=== PATIENT | male | born 1960 | race Caucasian/White ===

== ENCOUNTER 2018-04-11 12:48 | Observation (INO) | payer OTHER, SELFPAY ==
[2018-04-11] VITALS (9 sets, daily range): BP systolic 129–148; BP diastolic 82–115; PULSE 73–112; RESP 16–19; TEMP 36.7–37.1; O2SAT 95–97; BMI 30.7; BMI 31.5
--- NOTE | 2018-04-11 13:04 | EKG12_ITS ---
Test Reason : PALPS Blood Pressure : / mmHG Vent. Rate : 130 BPM Atrial Rate : 133 BPM P-R Int : 000 ms QRS Dur : 098 ms QT Int : 268 ms P-R-T Axes : 000 -30 055 degrees QTc Int : 394 ms Atrial fibrillation with rapid ventricular response Left axis deviation Nonspecific ST abnormality Abnormal ECG Confirmed by KIA MCGEE, BRENNEN ([id number]), cd manufacturing supervisor BRAULIO GONZALES ([id number]) on 04/14/2018 11:09:11 AM Referred By: STEVE Confirmed By:BRENNEN ADAM MD
--- NOTE | 2018-04-11 13:25 | RAD_ITS ---
STUDY: X-RAY CHEST REASON FOR EXAM: Male, 57 years old. Dyspnea. TECHNIQUE: PA and lateral views of the chest. # of Images: 2 COMPARISON: 07/05/2014. FINDINGS: The lungs are clear and expanded. There is no demonstrated pleural abnormality. Normal size heart. Normal mediastinum and isidro. Normal visualized pulmonary arteries. Normal visualized aortic arch and descending thoracic aorta. There are mild degenerative changes of the visualized thoracic spine. Normal visualized ribs, clavicles, and shoulders. There is no demonstrated abnormality of the visualized soft tissue structures of the upper abdomen. RAD/Chest PA and Lateral IMPRESSION: No active pulmonary disease. Electronically Signed: Albaro Johnson MD at 14:01 EDT Tel , Service support ,
[2018-04-11] MEDS: APIXABAN 5 MG TABLET PO (13:26)
[2018-04-11] MEDS: Propranolol 1 MG/ML Ampul IV (13:26)
--- NOTE | 2018-04-11 13:29 | ED.DCSUM_ITS ---
- ER Visit Summary Date of Service: 04/11/18 Chief Complaint: Sent from urgent care for rapid heart rate. History of Present Illness: The patient is a 57 M who has a past medical history of hypertension hypercholesterolemia presents with shortness of breath. According to he has not felt well since Friday according to patient he has home health since yesterday. She believes he was short of breath yesterday he states shortness of breath started today. He denies chest heaviness, pressure or tightness or any type of chest discomfort. He acknowledges intermittent palpitations for some time. He was not evaluated for this. I was informed by Dr. Quezada's who sent patient to ER from urgent care that he had a Holter monitor in 2011. He is on no anticoagulant. He was unaware that his heart was fast and irregular. He does have history of bright red blood per rectum consistent with hemorrhoids based on history. He denies fever, chills or night sweats. He denies ocular, visual or auditory symptoms. He denies trouble with speech or swallowing. Only GI symptom is intermittent hematochezia. Review of systems otherwise negative please read written note Physical Examination: Vital signs noted and blood pressure is elevated 148/115. Pulse is recorded at 77 Holter monitor reveals A. fib with a rate between 135 and 150. Head is atraumatic normocephalic. Pupils are equal round reactive. Extraocular muscles are intact. TMs are pearly white with landmarks noted. Nares patent with no drainage. Posterior pharynx without erythema or exudate. Uvula is midline. There is no dysphonia or dysphasia. Trachea is midline. There is no stridor with auscultation of the neck. Heart is rapid and irregular. Lungs are clear to auscultation. Abdomen is soft nontender. There is no asymmetry, swelling, discoloration, leg vein distention, palpable cords or tenderness along the distribution of the deep venous system. And there is no pitting edema. Neuro exam is nonfocal. Test Results: EKG interpreted by me as atrial fibrillation with a ventricular rate of 130. QRS duration is slightly prolonged at 98 ms and there is no ossific ST-T wave changes noted. Dunnegan is to the left. Troponin less than 0.015. CBC is unremarkable. Basic metabolic panel unremarkable. TSH is normal 1.63. Emergency Department Course and Treatment: To evaluate patient's new onset A. fib and EKG, chest x-ray, appropriate blood work including TSH was obtained. Since he is on Inderal he received 1 mg of Inderal and since he reports intermittent fluttering sensation a dose of Eliquis was administered. Patient was informed that the bleeding is not a contraindication since it is in all likelihood hemorrhoidal. Treatment Plan: Patient was informed he will require admission for further cardiac workup. Since the onset of his atrial fibrillation is unknown he is not a candidate for emergent cardioversion in the emergency department. Disposition: Case was discussed with Dr. Gonzalez. He agrees with treatment plan and admission. He will see patient. Furthermore, he was made aware patient's had no cardiac workup i.e. stress test or cardiac catheterization. Impression: New onset atrial fibrillation with RVR History of hypertension History hypercholesterolemia This note was generated with [employer] dictation software. It may contain incorrect words, spelling, and punctuation that were not noted in review of the chart prior to signing ED Disposition - Plan for ED Patient: Chief Complaint: Palpitations Referrals: Alan Li MD [Primary Care Provider] -
[2018-04-11 13:30] LABS: Hemoglobin 15.8 g/dl (13.0-16.5); Mean Corp Hgb Conc 33.6 g/gl (32-36); Mean Corpuscular Hgb 28.5 pg (27.0-32.0); Mean Corpuscular Volume 84.8 fL (80-94); Mean Platelet Vol. 9.6 fl (6.2-12.0); Platelet Count 362 K/mm3 (150-450); RBC Distribution Width CV 13.8 % (11.6-14.6); RBC Distribution Width SD 42.7 fl (35.1-43.9); Red Blood Count 5.54 M/mm3 (4.6-6.2); Scan Indicated on CBC? Y/N NO; White Blood Count 8.8 K/mm3 (4.4-11.0)
[2018-04-11 13:52] LABS: Anion Gap 8 (5-15); BUN 14 mg/dL (7-18); BUN/Creat Ratio 15.5 RATIO (10-20); Calcium,Total 9.5 mg/dL (8.5-10.1); Chloride 103 mmol/L (98-107); EST Glomerular Filtration Rate 92 mL/min (>60); Est Glom Filt Rate - Afr Amer 112 mL/min (>60); Estimated Creatinine Clearance 97.61 ml/min; Glucose 112 mg/dL (74-106); Sodium Level 138 mmol/L (136-145); Thyroid Stim Hormone (TSH) 1.63 uIU/mL (0.358-3.74)
--- NOTE | 2018-04-11 16:21 | EKG12_ITS ---
Test Reason : RHYTHM CHANGE Blood Pressure : / mmHG Vent. Rate : 086 BPM Atrial Rate : 086 BPM P-R Int : 168 ms QRS Dur : 102 ms QT Int : 358 ms P-R-T Axes : 035 -21 013 degrees QTc Int : 428 ms Normal sinus rhythm Incomplete right bundle branch block Nonspecific T wave abnormality Poor R wave progression Abnormal ECG Confirmed by KIA MCGEE, BRENNEN ([id number]), loan expeditor SCARLET ARRINGTON ([id number]) on 04/15/2018 1:50:33 PM Referred By: Confirmed By:BRENNEN ADAM MD
--- NOTE | 2018-04-11 16:46 | CON.PCM_ITS ---
Problem List (1) Atrial fibrillation Status: Acute Qualifiers: Atrial fibrillation type: paroxysmal Qualified Code(s): I48.0 - Paroxysmal atrial fibrillation (2) HTN (hypertension) Status: Chronic (3) HLD (hyperlipidemia) Status: Chronic Reason for Consult Date of Consultation: 04/11/18 History of Present Illness: The patient is a 57 year old for cardiovascular consultation based on concerns of atrial fibrillation. He states to the best of his knowledge, other than having hypertension and hyperlipidemia and a history of palpitations he has had no other medical conditions. He noted yesterday and today he felt somewhat more short of breath and dyspneic. He denied any ongoing chest discomfort. He does not recall any near-syncope or syncope. He has also denied any orthopnea, PND, peripheral pitting edema. He presented to the emergency department for further evaluation. He was found to be in atrial fibrillation with rapid ventricular response. Chest pain his initial cardiac enzyme was negative. His ECG demonstrated additional findings of left axis deviation, poor R wave progression, nonspecific ST segment abnormality. He was treated with rate control therapy and a dose of an oral anticoagulant. He was placed in the PCU for further evaluation and care. While in the PCU he was noted to have spontaneous conversion to sinus rhythm. In sinus rhythm his ECG demonstrated sinus rhythm with a leftward axis and stage renal disease with an incomplete right bundle branch block pattern and a nonspecific T wave abnormality. He states he underwent evaluation the past with a transthoracic echocardiogram and an exercise tolerance test through the [facility] system. To the best of his knowledge the studies, which are remote, were unremarkable. He states he was placed on beta-kinza therapy with Inderal for intermittent palpitations. [] Past Medical History Allergies/Adverse Reactions: Allergies acetaminophen [From Vicodin] Adverse Reaction (Verified 04/11/18 12:48) Other I DON'T LIKE HOW IT MAKES ME FEEL hydrocodone [From Vicodin] Adverse Reaction (Verified 04/11/18 12:48) Other I DON'T LIKE HOW IT MAKES ME FEEL Home Medications: Ambulatory Orders Medication Instructions Recorded Diltiazem HCl [Dilacor Xr] 240 mg PO DAILY 07/28/13 Lorazepam [Ativan] 1 mg PO QHS PRN PRN 07/28/13 Propranolol HCl [Inderal] 60 mg PO DAILY 07/28/13 Atorvastatin Calcium [Lipitor] 20 mg PO QHS 07/05/14 Benazepril/Hydrochlorothiazide 1 each PO DAILY 07/05/14 [Lotensin Hct 10-12.5 mg Tablet] Loratadine 10 mg PO DAILY 04/11/18 Naproxen [Naprosyn] 500 mg PO BID PRN PRN 04/11/18 Past Medical History (Chronic Problems): Chronic Problems HTN (hypertension) (Chronic) HLD (hyperlipidemia) (Chronic) Lives: Spouse/ Significant Other Smoking Status: Never smoker Alcohol: None Drugs: None Review of Systems - Review of Systems General: Denies: Fever, Night Sweats, Fatigue Cardiovascular: Reports: Shortness of Breath, Shortness of Breath at Rest, Shortness of Breath with Exertion. Denies: Chest Discomfort, Orthopnea, PND, Peripheral Edema, Palpitations, Lightheadedness, Dizziness, Near Syncope, Syncope Respiratory: Reports: Shortness of Breath. Denies: Cough, Sputum Production, Hemoptysis Gastrointestinal: Denies: Hematemesis, Hematochezia, Melena Genitourinary: Denies: Dysuria, Hematuria Skin: Denies: Rash Subjectve: This is a 57-year-old white male appears to be resting comfortably at the moment in no acute distress. Objective: Vital Signs Temp Pulse Resp BP Pulse Ox 98.8 F 112 H 18 129/82 H 97 04/11/18 15:08 04/11/18 15:09 04/11/18 15:08 04/11/18 15:08 04/11/18 15:08 Oxygen Delivery Method Room Air Weight: 225 lb 4.999 oz Body Mass Index (BMI) 31.5 General: Awake, Alert, Oriented x 3, Cooperative, No Acute Distress HEENT: Atraumatic, Normocephalic, PERRL, EOMI, Sclera Non Icteric Oral: Moist Mucosa Neck: Supple, Good ROM, No JVD Lungs: Clear to auscultation Cardiovascular: Regular Rhythm, Normal S1, Normal S2 Vascular: No Carotid Bruits Abdomen: Bowel Sounds Present, Soft, Non Tender Extremities: No Cyanosis, No Clubbing, No edema Psych/Mental Status: Appropriate, Normal Affect 04/11/18 13:20: WBC 8.8, RBC 5.54, Hgb 15.8, Hct 47.0, MCV 84.8, MCH 28.5, MCHC 33.6, RDW 13.8, RDW Differential 42.7, Plt Count 362, MPV 9.6 04/11/18 13:20: Sodium 138, Potassium 4.0, Chloride 103, Carbon Dioxide 27.0, Anion Gap 8, BUN 14, Creatinine 0.90, Est GFR (MDRD) Af Amer 112, Est GFR (MDRD) Non-Af 92, BUN/Creatinine Ratio 15.5, Glucose 112 H, Calcium 9.5, Troponin I < 0.015 Rhythm: As noted above EKG: As noted above ECHO: Unavailable for review Stress Test: Unavailable for review CXR: Preliminary evaluation: No acute cardiopulmonary disease process appreciated: Please see official report Assessment/Plan 1. Paroxysmal afibrillation At the present time the patient is back in sinus rhythm. He will continue to be monitored. His cardiac enzymes are being followed. His ECG will be followed. It is not unreasonable to obtain an echocardiogram to assess his atrial size as well as his ventricular wall motion systolic function. His symptoms of shortness of breath may be related to his atrial dysrhythmia. However based upon his symptoms, his findings, superimposed upon his cardiovascular risk factors, I would not be unreasonable to also obtain an exercise tolerance test/imaging study to evaluate for any obvious evidence of CAD/myocardial ischemia that warrants further evaluation care. In the meantime he will continue medical management. He can be on antiplatelet therapy, anticoagulant therapy as deemed appropriate, and rate control therapy. He has a [id number] score of 1. Thus, this patient remains in sinus rhythm and/or perhaps paroxysmal atrial fibrillation then consideration will be given as to whether or not he could be placed on full strength aspirin therapy versus being on anticoagulant therapy. However if he does demonstrate recurrent episodes of paroxysmal atrial fibrillation or returns to what appears to be persistent atrial fibrillation then consideration will need to be given to anticoagulant therapy. 2. Hypertension The patient's blood pressure will be monitored. His medications can be adjusted as needed. 3. Hyperlipidemia The patient will continue lipid-lowering therapy. Comment: The above was discussed and reviewed with patient, spouse, and Dr. Flores. This note was generated with [employer] software. It may contain incorrect words, spelling, and punctuation that were not noted in checking the note before signing.
--- NOTE | 2018-04-11 16:57 | PCM.HP.STD ---
Problem List (1) New-onset atrial fibrillation with RVR Status: Acute History of Present Illness Date of Admission: 04/11/18 Chief Complaint: New-onset atrial fibrillation with RVR The patient is a 57 year old M seen in the emergency room it was the hospital with a chief complaint of increased heart rate and new onset atrial fibrillation. Patient was seen at a walk-in clinic today because since yesterday he has been having some vague chest discomfort which he describes as a tightness and also an overall weakness at the same time. Patient was seen at the walk-in clinic today and it was noted that he was in atrial fibrillation and he was instructed to go to the emergency room at [facility] for evaluation. Patient has a history of cardiac palpitations and was seen 5-[address] Alvarado, at that time he underwent an echocardiogram and a stress test which she says was unremarkable and placed on Inderal LA. Patient denies any neck or jaw discomfort, he denies any discomfort in his arms or in his mid back area today. Patient also denies any shortness of breath. EKG obtained in the emergency room showed the patient be in atrial fibrillation with a heart rate approximately 130, he was given IV Inderal by the emergency room physician and was given a dose of Eliquis. Patient had a chest x-ray performed which was unremarkable, patient's labs were also unremarkable. Patient has a history of hypertension and hyperlipidemia and takes medications. Cardiology was contacted and the patient was admitted to PCU, he will be seen by cardiology in consultation, he will have an echocardiogram performed, serial enzymes will be performed, lipid profile was ordered, his Inderal LA was changed to metoprolol tartrate 50 mg twice daily. Past Medical History Past Medical History (Chronic Problems): Chronic Problems HTN (hypertension) (Chronic) HLD (hyperlipidemia) (Chronic) Allergies acetaminophen [From Vicodin] Adverse Reaction (Verified 04/11/18 12:48) Other I DON'T LIKE HOW IT MAKES ME FEEL hydrocodone [From Vicodin] Adverse Reaction (Verified 04/11/18 12:48) Other I DON'T LIKE HOW IT MAKES ME FEEL Home Medications: Ambulatory Orders Medication Instructions Recorded Diltiazem HCl [Dilacor Xr] 240 mg PO DAILY 07/28/13 Lorazepam [Ativan] 1 mg PO QHS PRN PRN 07/28/13 Propranolol HCl [Inderal] 60 mg PO DAILY 07/28/13 Atorvastatin Calcium [Lipitor] 20 mg PO QHS 07/05/14 Benazepril/Hydrochlorothiazide 1 each PO DAILY 07/05/14 [Lotensin Hct 10-12.5 mg Tablet] Loratadine 10 mg PO DAILY 04/11/18 Naproxen [Naprosyn] 500 mg PO BID PRN PRN 04/11/18 Surgical History: no surgical history Psychiatric History: No pertinent psych hx Lives: Spouse/ Significant Other Smoking Status: Never smoker Alcohol: None Drugs: None - *Family History Maternal History Items: No pertinent history Paternal History Items: Heart Disease - at age 81 from suspected PR, Renal Disease - End-stage renal disease Review of Systems Constitutional: Reports: Weakness. Denies: Anorexia, Chills, Fever, Night Sweats, Malaise, Weight Change Eyes: Denies: Blurred vision, Cataracts, Conjunctivae Inflammation, Double vision, Drainage HEENT: Denies: Difficulty Hearing, Difficulty Swallowing, Dysphasia, Ear Pain, Eye Pain, Head Aches, Hearing Changes, Nasal bleeding, Nasal Congestion, Post Nasal Drip Cardiovascular: Reports: Chest Tightness, Palpitations. Denies: Chest Pain, Claudication, Chest Pressure, Edema, Heaviness Respiratory: Denies: Cough, Hemoptysis, Pleuritic Pain, Shortness of Breath, Shortness of breath at rest, Shortness of breath upon exertion, Sputum production, Wheezing Gastrointestinal: Denies: Abdominal Pain, Constipation, Diarrhea, Hematemesis, Hematochezia, Nausea, Melena, Vomiting Genitourinary: Denies: Dysuria, Frequency, Hematuria, Hesitancy, Incontinence, Nocturia, Retention, Urgency Musculoskeletal: Denies: Foot Pain, Hand Pain, Joint Pain, Joint stiffness, Joint swelling, Joint Tenderness, Leg Pain Skin: Denies: Dryness, Jaundice, Pruritis, Rash Neurological: Denies: Blurred vision, Double vision, Slurred speech, Difficulty swallowing, Focal weakness, Headaches, Incoordination, Numbness, Tingling Psychiatric: Denies: Anxiety, Depression, Homicidal Ideations, Suicidal Ideations Endocrine: Denies: Change in Body Habitus, Heat/ Cold Intolerance, Polydipsia, Polyuria Hematologic/ Lymphatic: Denies: Adenopathy, Anemia, Easy Bruising, Easy Bleeding, Petechiae, Purpura VTE Information - Inpt Only VTE Present on Admission: No VTE Mechan Device Prophylaxis: None VTE Pharm Prophylaxis ordered?: Yes Patient Problems: Active and Suspected Problems Atrial fibrillation (Acute) New-onset atrial fibrillation with RVR (Acute) - Physical Exam General: Alert, Oriented x3, Cooperative, No apparent distress, Well developed, Well nourished HEENT: Atraumatic, PERRLA, EOMI, Normocephalic Oral: Moist Mucosa Neck: Supple, No JVD, Negative Carotid Bruits, No Nuchal Rigidity, Trachea Midline, Thyroid Normal Size and Texture Lungs: Clear to auscultation, Normal air movement, No rhonchi, No wheeze, No rales Cardiovascular: Regular rate, Regular Rhythm, Normal S1, Normal S2, No murmurs, No Ectopic Activity, PMI Normal, No rub noted, No Gallop Abdomen: Bowel Sounds Present, Soft, Non Tender, Non-Distended, No hernias noted Extremities: No clubbing, No cyanosis, No edema, Capillary Refill Less than 3 Seconds Skin: No rashes, No breakdown Musculoskeletal: No Tenderness to Palpation of Joints or Extremities Neurological: Cranial nerves II-XII grossly intact, Neuro grossly intact, Muscle tone normal, Sensory exam intact to light touch and pain, Coordination normal Psych/Mental Status: Normal Affect, Appropriate, Alert and oriented to time, place, person, mood and affect Vital Signs Temp Pulse Resp BP Pulse Ox 98.8 F 112 H 18 129/82 H 97 04/11/18 15:08 04/11/18 15:09 04/11/18 15:08 04/11/18 15:08 04/11/18 15:08 Oxygen Delivery Method Room Air Weight: 102.2 kg Body Mass Index (BMI) 31.5 Laboratory Tests Past 24 Hrs 04/11/18 04/11/18 13:20 13:20 WBC 8.8 RBC 5.54 Hgb 15.8 Hct 47.0 MCV 84.8 MCH 28.5 MCHC 33.6 RDW 13.8 RDW Differential 42.7 Plt Count 362 MPV 9.6 Sodium 138 Potassium 4.0 Chloride 103 Carbon Dioxide 27.0 Anion Gap 8 BUN 14 Creatinine 0.90 Estim Creat Clear Calc 97.61 Est GFR (MDRD) Af Amer 112 Est GFR (MDRD) Non-Af 92 BUN/Creatinine Ratio 15.5 Glucose 112 H Calcium 9.5 Troponin I < 0.015 TSH 1.63 Assessment/Plan All Active Problems Atrial fibrillation (Acute) New-onset atrial fibrillation with RVR (Acute) #1 new onset atrial fibrillation with RVR-patient was admitted to PCU, shortly after admission to PCU was noted to the patient converted to normal sinus rhythm. Cardiac enzymes will be cycled, patient will have an echocardiogram performed and undergo nuclear stress testing if enzymes do not become abnormal. Patient's Inderal LA was stopped and he was placed on metoprolol tartrate 50 mg twice daily, he will remain on Cardizem CD and Lotensin HCT or its equivalent. Additional medication adjustments were made by cardiology, patient will have a lipid profile drawn in the morning. It is not planned to fully anticoagulate the patient at this time. #2 hypertension #3 hyperlipidemia Code Visit Inpatient E&M: 50722 Init Hosp L3
--- NOTE | 2018-04-11 17:04 | ECHOD_ITS ---
Reason For Study: Afib, Aflutter Procedure This was a 2D Doppler, Color Flow transthoracic echocardiogram. Exam performed in department. Left Ventricle Normal LV size. Left ventricular systolic function is hyperdynamic. The estimated ejection fraction is 75 %. Transmitral doppler flow suggestive of impaired relaxation of left ventricle. No regional wall motion abnormalities noted. Right Ventricle Normal RV size. Normal systolic function. Atria Normal left atrium. Normal right atrium. No doppler evidence for ASD. Bubble contrast study negative for right to left interatrial shunt. Mitral Valve There is no mitral annular calcification. Normal mitral valve. Trivial mitral valve insufficiency. Tricuspid Valve Normal tricuspid valve. Trivial tricuspid valve insufficiency. Aortic Valve Trisinus/trileaflet aortic valve. Normal aortic valve. Trivial aortic valve insufficiency. Pulmonic Valve The pulmonic valve is not well visualized. Trivial pulmonic valve insufficiency. Great Vessels Normal sized aortic root. Pericardium/Pleural No pericardial effusion. Medication Performed a rapid injection of agitated mix of 9 cc saline and 1cc air to assess for atrial septal defect. MMode/2D Measurements & Calculations LVIDd: 4.3 cm IVSd: 1.3 cm Ao root diam: 3.3 cm LVIDs: 2.4 cm LVPWd: 1.3 cm RVDd: 2.4 cm FS: 44.5 % LAV(MOD-bp): 35.6 ml LVAd ap4: 21.4 cm2 SV(MOD-sp4): 36.0 ml LAV(MOD-bp) Indexed: 16.2 ml/m2 EDV(MOD-sp4): 50.8 ml LAV(MOD-sp2): 44.3 ml EDV(sp4-el): 52.0 ml LAV(MOD-sp4): 28.5 ml LVAs ap4: 9.4 cm2 ESV(MOD-sp4): 14.8 ml ESV(sp4-el): 14.7 ml EF(MOD-sp4): 70.8 % EF(sp4-el): 71.8 % SV(sp4-el): 37.4 ml LA A4 area: 13.2 cm2 RA A4 area: 11.1 cm2 Doppler Measurements & Calculations MV E max mario: 63.1 cm/sec Lat Peak E' Mario: 8.3 cm/sec Med Peak E' Mario: 8.2 cm/sec MV A max mario: 88.4 cm/sec E/E' lat: 7.6 E/E' med: 7.7 MV E/A: 0.71 Ao V2 max: 171.5 cm/sec LV V1 max: 129.4 cm/sec PA V2 max: 135.3 cm/sec Ao max P.8 mmHg LV V1 max P.7 mmHg Ao V2 mean: 124.5 cm/sec Ao mean P.8 mmHg Ao V2 VTI: 25.8 cm Interpretation Summary Left ventricular systolic function is hyperdynamic. The estimated ejection fraction is 75 %. Trivial mitral valve insufficiency. Trivial tricuspid valve insufficiency. Trivial aortic valve insufficiency. Trivial pulmonic valve insufficiency. Transmitral doppler flow suggestive of impaired relaxation of left ventricle Bubble contrast study negative for right to left interatrial shunt. Ordering Physician: Paul Flores Referring Physician: Alan Li Performed By: Mercy Guerrier RDCS, RVT
[2018-04-11] MEDS: Atorvastatin Calcium 20 MG Tablet PO (21:55)
[2018-04-11] MEDS: Metoprolol Tartrate 50 MG Tablet PO (21:55)
[2018-04-11] MEDS: LORazepam 0.5 MG Tablet 1 MG PO (22:00)
[2018-04-12] VITALS (13 sets, daily range): BP systolic 126–136; BP diastolic 72–87; PULSE 64–79; RESP 16–18; TEMP 36.5–36.8; O2SAT 95–97
[2018-04-12 06:40] LABS: Cholesterol 159 mg/dL (200); High Density Lipoprotein 40 mg/dL; Triglycerides 226 mg/dL; Very Low Density Lipoprotein 45 mg/dL (5-40)
[2018-04-12] MEDS: dilTIAZem CD 240 MG Capsule PO (09:36)
[2018-04-12] MEDS: Lisinopril 10 MG Tablet PO (09:36)
[2018-04-12] MEDS: Aspirin E.C. 325 MG Tablet PO (09:36)
[2018-04-12] MEDS: Metoprolol Tartrate 50 MG Tablet PO ×2 (09:36→21:21)
[2018-04-12] MEDS: hydroCHLOROthiazide 12.5mg 12.5 MG PO (09:36)
--- NOTE | 2018-04-12 11:34 | PN.CARD_ITS ---
Subjectve: The patient denies ongoing chest discomfort or shortness of breath or palpitations. Objective: Vital Signs Temp Pulse Resp BP Pulse Ox 98.3 F 74 18 126/74 H 95 04/12/18 08:50 04/12/18 11:08 04/12/18 09:45 04/12/18 08:50 04/12/18 08:50 Oxygen Delivery Method Room Air Weight: 225 lb 4.999 oz Body Mass Index (BMI) 31.5 Intake and Output for Last 24 Hours 04/10/18 04/11/18 04/12/18 23:59 23:59 23:59 Intake Total 240 / 240 240 / 240 Balance 240 / 240 240 / 240 General: Awake, Alert, Oriented x 3, Cooperative, No Acute Distress HEENT: Atraumatic, Normocephalic, PERRL, EOMI, Sclera Non Icteric Oral: Moist Mucosa Neck: Supple, Good ROM, No JVD Lungs: Clear to auscultation Cardiovascular: Regular Rhythm, Normal S1, Normal S2 Vascular: No Carotid Bruits Abdomen: Bowel Sounds Present, Soft, Non Tender Extremities: No edema Neurological: No Focal Motor or Sensory Deficit Psych/Mental Status: Appropriate, Normal Affect 04/11/18 13:20: WBC 8.8, RBC 5.54, Hgb 15.8, Hct 47.0, MCV 84.8, MCH 28.5, MCHC 33.6, RDW 13.8, RDW Differential 42.7, Plt Count 362, MPV 9.6 04/11/18 13:20: Sodium 138, Potassium 4.0, Chloride 103, Carbon Dioxide 27.0, Anion Gap 8, BUN 14, Creatinine 0.90, Est GFR (MDRD) Af Amer 112, Est GFR (MDRD) Non-Af 92, BUN/Creatinine Ratio 15.5, Glucose 112 H, Calcium 9.5, Troponin I < 0.015 04/11/18 17:25: Troponin I < 0.015 04/11/18 19:53: Troponin I < 0.015 04/11/18 23:02: Troponin I < 0.015 04/12/18 05:36: Triglycerides 226 H, Cholesterol 159, LDL Cholesterol 74, VLDL Cholesterol 45 H, HDL Cholesterol 40 Rhythm: sinus rhythm EKG: sinus rhythm; no acute ECG changes ECHO: pending Stress Test: pending Medical Necessity - Tobacco Use Smoking Status: Never smoker Assessment/Plan 1. Paroxysmal afibrillation At the present time the patient is back in sinus rhythm. He will continue to be monitored. His cardiac enzymes are negative. His ECG will be followed. It is not unreasonable to obtain an echocardiogram to assess his atrial size as well as his ventricular wall motion systolic function. His symptoms of shortness of breath may be related to his atrial dysrhythmia. However based upon his symptoms, his findings, superimposed upon his cardiovascular risk factors, it would not be unreasonable to also obtain an exercise tolerance test/imaging study to evaluate for any obvious evidence of CAD/myocardial ischemia that warrants further evaluation care. In the meantime he will continue medical management. He can be on antiplatelet therapy, anticoagulant therapy as deemed appropriate, and rate control therapy. Depending upon his clinical course he may need further outpatient cardiac rhythm follow up with an event monitor. He has a [id number] score of 1. Thus, this patient remains in sinus rhythm and/or perhaps paroxysmal atrial fibrillation then consideration will be given as to whether or not he could be placed on full strength aspirin therapy versus being on anticoagulant therapy. However if he does demonstrate recurrent episodes of paroxysmal atrial fibrillation or returns to what appears to be persistent atrial fibrillation then consideration will need to be given to anticoagulant therapy. 2. Hypertension The patient's blood pressure will be monitored. His medications can be adjusted as needed. 3. Hyperlipidemia The patient will continue lipid-lowering therapy. Comment: The above was discussed and reviewed with patient, spouse, and Dr. Flores. This note was generated with [employer] dictation software. It may contain incorrect words, spelling, and punctuation that were not noted in checking the note before signing.
[2018-04-12] MEDS: Acetaminophen 325 MG Tablet 650 MG PO ×2 (15:36→21:37)
--- NOTE | 2018-04-12 19:00 | PCM.PROGNOTE ---
Patient Problems: Active and Suspected Problems Atrial fibrillation (Acute) New-onset atrial fibrillation with RVR (Acute) Subjective: Patient was seen and examined today, he continues to remain in sinus rhythm, he denies any chest pain or shortness of breath. - Physical Exam General: Alert, Oriented x3, Cooperative HEENT: Atraumatic, PERRLA, EOMI, Normocephalic Neck: Supple, No JVD, Trachea Midline, Thyroid Normal Size and Texture Lungs: Clear to auscultation, Normal air movement, No rhonchi, No wheeze, No rales Cardiovascular: Regular rate, Regular Rhythm, Normal S1, Normal S2, No murmurs, No Ectopic Activity, PMI Normal, No rub noted, No Gallop Abdomen: Bowel Sounds Present, Soft, Non Tender, Non-Distended Extremities: No edema, Capillary Refill Less than 3 Seconds Skin: No rashes, No breakdown Musculoskeletal: No Tenderness to Palpation of Joints or Extremities Neurological: Cranial nerves II-XII grossly intact, Neuro grossly intact, Sensory exam intact to light touch and pain, Coordination normal Psych/Mental Status: Normal Affect, Appropriate, Alert and oriented to time, place, person, mood and affect Vital Signs Temp Pulse Resp BP Pulse Ox 97.9 F 64 18 127/72 H 96 04/12/18 15:32 04/12/18 15:32 04/12/18 15:32 04/12/18 15:32 04/12/18 15:32 Oxygen Delivery Method Room Air Weight: 102.2 kg Body Mass Index (BMI) 31.5 Intake and Output for Last 24 Hours 04/10/18 04/11/18 04/12/18 23:59 23:59 23:59 Intake Total 240 / 240 1240 / 1240 Balance 240 / 240 1240 / 1240 Laboratory Tests Past 24 Hrs 04/11/18 04/11/18 04/12/18 19:53 23:02 05:36 Troponin I < 0.015 < 0.015 Triglycerides 226 H Cholesterol 159 LDL Cholesterol 74 VLDL Cholesterol 45 H HDL Cholesterol 40 Medical Necessity - Tobacco Use Smoking Status: Never smoker Assessment/Plan All Active Problems Atrial fibrillation (Acute) New-onset atrial fibrillation with RVR (Acute) #1 new onset atrial fibrillation with RVR-patient now in sinus rhythm, he converted yesterday, he will have a stress test and echocardiogram tomorrow, cardiology is participating in his care #2 hypertension #3 hyperlipidemia Code Visit Inpatient E&M: 92891 Subs Hosp L2
[2018-04-12] MEDS: Sodium Chloride 0.65% 1 SPRAY SPRAY.BTL 2 SPRAY NASAL (19:25)
[2018-04-12] MEDS: Atorvastatin Calcium 20 MG Tablet PO (21:21)
[2018-04-12] MEDS: LORazepam 0.5 MG Tablet PO (21:21)
[2018-04-12] MEDS: 0.9% NaCl Peripheral Flush Adult/Peds IV (21:21)
[2018-04-13] VITALS (7 sets, daily range): BP systolic 113–142; BP diastolic 76–84; PULSE 55–95; RESP 16; TEMP 36.3–36.4; O2SAT 96–100
[2018-04-13 05:28] LABS: Absolute Lymphocyte Count 2.65 X10^3/ul (0.83-4.51); Absolute Neutrophil Count 4.2 X10^3/uL (2.0-7.7); Basophil# 0.05 X10^3/uL; Basophil% 0.6 % (0-1); Eosinophil# 0.36 X10^3/uL; Eosinophils% 4.4 % (0-5); Hematocrit 44.1 % (40-54); Hemoglobin 14.9 g/dl (13.0-16.5); Lymphocyte # 2.65 X10^3/ul (4.0); Lymphocyte % 32.5 % (19-41); Mean Corp Hgb Conc 33.8 g/gl (32-36); Mean Corpuscular Hgb 28.7 pg (27.0-32.0); Mean Platelet Vol. 9.8 fl (6.2-12.0); Monocyte# 0.88 X10^3/uL; Monocyte% 10.8 % (0-10); Neutrophil % 51.6 % (47-70); Platelet Count 336 K/mm3 (150-450); RBC Distribution Width CV 13.9 % (11.6-14.6); RBC Distribution Width SD 42.7 fl (35.1-43.9); Red Blood Count 5.19 M/mm3 (4.6-6.2); White Blood Count 8.2 K/mm3 (4.4-11.0)
[2018-04-13 05:30] LABS: POSITIVE COUNT NO; POSITIVE DIFFERENTIAL NO; POSITIVE MORPHOLOGY NO
[2018-04-13 05:33] LABS: Prothrombin Time (Protime)PT. 13.4 SECONDS (11.7-14.9)
[2018-04-13] MEDS: Aspirin E.C. 325 MG Tablet PO (05:40)
[2018-04-13] MEDS: Lisinopril 10 MG Tablet PO (05:40)
[2018-04-13 05:51] LABS: Anion Gap 9 (5-15); BUN 18 mg/dL (7-18); BUN/Creat Ratio 20.4 RATIO (10-20); Calcium,Total 8.7 mg/dL (8.5-10.1); Chloride 102 mmol/L (98-107); Creatinine, Serum 0.88 mg/dL (0.70-1.30); EST Glomerular Filtration Rate 95 mL/min (>60); Est Glom Filt Rate - Afr Amer 115 mL/min (>60); Estimated Creatinine Clearance 96.78 ml/min; Glucose 93 mg/dL (74-106); Potassium 3.9 mmol/L (3.5-5.1); Sodium Level 138 mmol/L (136-145)
--- NOTE | 2018-04-13 05:55 | EKG12_ITS ---
Test Reason : AM EKG Blood Pressure : / mmHG Vent. Rate : 060 BPM Atrial Rate : 060 BPM P-R Int : 178 ms QRS Dur : 114 ms QT Int : 438 ms P-R-T Axes : 042 011 011 degrees QTc Int : 438 ms Normal sinus rhythm Incomplete right bundle branch block Borderline ECG Confirmed by KIA MCGEE, BRENNEN ([id number]), publication editor SCARLET ARRINGTON ([id number]) on 04/15/2018 1:46:52 PM Referred By: DARYL Confirmed By:BRENNEN ADAM MD
[2018-04-13] MEDS: dilTIAZem CD 240 MG Capsule PO (09:19)
[2018-04-13] MEDS: Metoprolol Tartrate 50 MG Tablet PO (09:19)
[2018-04-13] MEDS: hydroCHLOROthiazide 12.5mg 12.5 MG PO (09:19)
--- NOTE | 2018-04-13 09:20 | STRESSREP ---
Stress Test Report Date: 04/13/2018 Procedure: Exercise tolerance test/imaging study Indications: Shortness of breath/dyspnea; paroxysmal atrial fibrillation Consent: Per the patient Procedure: The patient exercised on a Ifeanyi protocol for 8 minutes and 30 seconds completing Stage II and 2 minutes and 30 seconds of Stage III achieving a peak heart rate of 162 bpm (98 % predicted maximal heart rate) with a peak blood pressure 220/84 mmHg and a peak MET capacity of 9 METs. The baseline ECG demonstrated normal sinus rhythm: Poor R wave progression; nonspecific T wave abnormality. The peak exercise ECG demonstrated somatic/motion artifact with no obvious ECG changes. There was a rare PVC during exercise. The functional capacity was considered good. There was no complaint of chest discomfort during exercise or recovery. The examination was discontinued secondary to dyspnea and leg discomfort. Impression: 1. Technically adequate (percent predicted maximal heart rate greater than 85%) exercise tolerance test 2. Peak exercise ECG demonstrated somatic/motion artifact with no obvious ECG changes 3. There was a rare PVC during exercise 4. Nuclear images pending Myocardial perfusion imaging study: Technique: The patient was injected with 14.5 mCi of technetium 99m Cardiolite and subsequently rest SPECT Cardiolite nuclear imaging was obtained in the horizontal long, vertical long, and short axis views. The patient exercised on a Ifeanyi protocol for 8 minutes and 30 seconds completing Stage II and 2 minutes and 30 seconds of Stage III achieving a peak heart rate of 162 bpm (98 % predicted maximal heart rate) with a peak blood pressure 220/84 mmHg and a peak MET capacity of 9 METs. The patient was injected with 44.4 mCi of technetium 99m Cardiolite and subsequently stress SPECT Cardiolite nuclear imaging was obtained in the horizontal long, vertical long, and short axis views. A gated Cardiolite study at peak stress was obtained. Interpretation: Rest and stress SPECT Cardiolite nuclear imaging status post realignment, normalization, and attenuation correction, demonstrates the appearance of relative uniform tracer uptake and myocardial perfusion appearing within normal limits. There is end systolic thickening and brightening. The gated Cardiolite study demonstrates myocardial thickening and inward wall motion. The reported LVEF is 81 %. Impression: 1. Rest and stress SPECT Cardiolite nuclear imaging demonstrate relative uniform tracer uptake and myocardial perfusion appearing within normal limits. 2. The gated Cardiolite study reports an LVEF of 81 %. This note was generated with [employer] software. It may contain incorrect words, spelling, and punctuation that were not noted in checking the note before signing.
--- NOTE | 2018-04-13 09:24 | STRESSREP_ITS ---
Stress Test Report Date: 04/13/2018 Procedure: Exercise tolerance test/imaging study Indications: Shortness of breath/dyspnea; paroxysmal atrial fibrillation Consent: Per the patient Procedure: The patient exercised on a Ifeanyi protocol for 8 minutes and 30 seconds completing Stage II and 2 minutes and 30 seconds of Stage III achieving a peak heart rate of 162 bpm (98 % predicted maximal heart rate) with a peak blood pressure 220/84 mmHg and a peak MET capacity of 9 METs. The baseline ECG demonstrated normal sinus rhythm: Poor R wave progression; no nspecific T wave abnormality. The peak exercise ECG demonstrated somatic/motion artifact with no obvious ECG changes. There was a rare PVC during exercise. The functional capacity was considered good. There was no complaint of chest discomfort during exercise or recovery. The examination was discontinued secondary to dyspnea and leg discomfort. Impression: 1. Technically adequate (percent predicted maximal heart rate greater than 85%) exercise tolerance test 2. Peak exercise ECG demonstrated somatic/motion artifact with no obvious ECG changes 3. There was a rare PVC during exercise 4. Nuclear images pending Myocardial perfusion imaging study: Technique: The patient was injected with 14.5 mCi of technetium 99m Cardiolite and subsequently rest SPECT Cardiolite nuclear imaging was obtained in the horizontal long, vertical long, and short axis views. The patient exercised on a Ifeanyi protocol for 8 minutes and 30 seconds completing Stage II and 2 minutes and 30 seconds of Stage III achieving a peak heart rate of 162 bpm (98 % predicted maximal heart rate) with a peak blood pressure 220/84 mmHg and a peak MET capacity of 9 METs. The patient was injected with 44.4 mCi of technetium 99m Cardiolite and subsequently stress SPECT Cardiolite nuclear imaging was obtained in the horizontal long, vertical long, and short axis views. A gated Cardiolite study at peak stress was obtained. Interpretation: Rest and stress SPECT Cardiolite nuclear imaging status post realignment, normalization, and attenuation correction, demonstrates the appearance of relative uniform tracer uptake and myocardial perfusion appearing within normal limits. There is end systolic thickening and brightening. The gated Cardiolite study demonstrates myocardial thickening and inward wall motion. The reported LVEF is 81 %. Impression: 1. Rest and stress SPECT Cardiolite nuclear imaging demonstrate relative uniform tracer uptake and myocardial perfusion appearing within normal limits. 2. The gated Cardiolite study reports an LVEF of 81 %. This note was generated with [employer] software. It may contain incorrect words, spelling, and punctuation that were not noted in checking the note before signing.
--- NOTE | 2018-04-13 10:40 | CASEMGMT ---
LIYAH VILLANUEVA INITIAL REVIEW ASSESSMENT D/C PLAN: Home Face to Face with patient for initial transition planning/care coordination assessment. LIYAH VILLANUEVA introduced self and role at [facility]. Care providers, pharmacy, and demographics verified. Pt resting in bed, awake/alert/oriented. present in room @ bedside. PCP: Dr Li Preferred Pharmacy: [facility] Insurance: MMO Prescription Benefit: MMO Living Will/HPOA: Does not have advanced directive. States he and his are both interested in information and would like to talk to JOANNA. Consult made with JOANNA Stone. Living Arrangements: Lives with . Transportation: Pt drives. DME: Denies using any DME and denies needs. HHC/SNF: Has never used either. Pt's plans on D/C: Wishes to return home. Denies needs and no needs identified. CM to follow for any further discharge planning needs that may arise. Marleni POLLARD RN, CM
--- NOTE | 2018-04-13 11:55 | DCINST_ITS ---
- Discharge Diagnoses Current Active Problems: Current Active and Chronic Problems Atrial fibrillation (Acute) HTN (hypertension) (Chronic) HLD (hyperlipidemia) (Chronic) New-onset atrial fibrillation with RVR (Acute) You will use the following diet at home:: No restrictions Your food should be the consistency of: Regular Your liquids should be the consistency of: Regular/Thin Discharge Activity: Return to Normal Activity Weight Bearing Status: Full weight bearing Allergies/Adverse Reactions: Allergies acetaminophen [From Vicodin] Adverse Reaction (Verified 04/11/18 12:48) Other I DON'T LIKE HOW IT MAKES ME FEEL hydrocodone [From Vicodin] Adverse Reaction (Verified 04/11/18 12:48) Other I DON'T LIKE HOW IT MAKES ME FEEL Medications to take at Discharge Diltiazem HCl [Dilacor Xr] 240 mg PO DAILY 07/28/13 Lorazepam [Ativan] 0.5 mg PO QHS PRN PRN 07/28/13 Atorvastatin Calcium [Lipitor] 20 mg PO QHS 07/05/14 Benazepril/Hydrochlorothiazide [Lotensin Hct 10-12.5 mg Tablet] 1 each PO DAILY 07/05/14 Loratadine 10 mg PO DAILY 04/11/18 Naproxen [Naprosyn] 500 mg PO BID PRN PRN 04/11/18 Aspirin E.C. [Ecotrin] 325 mg PO DAILY@0800 tablet 04/13/18 Metoprolol Tartrate [Lopressor (beta kinza)] 75 mg PO BID #90 tablet 04/13/18 The following prescriptions were given: Metoprolol Tartrate [Lopressor (beta kinza)] 75 mg PO BID #90 tablet Primary Care Physician: Alan Li MD [Primary Care Provider] - Please follow up with your Primary Care Physician in: in 2 weeks Test Results: Test results from this visit will be discussed in further detail at your follow- up appointment, if applicable. Please Follow Up With: Diaz Gonzalez MD When: in 4 weeks
[2018-04-13] MEDS: Acetaminophen 325 MG Tablet 650 MG PO (12:34)
[2018-04-13] MEDS: Sodium Chloride 0.65% 1 SPRAY SPRAY.BTL 2 SPRAY NASAL (12:34)
--- NOTE | 2018-04-13 13:52 | CASEMGMT ---
Social Work Met with pt and and reviewed advance directive information. SW explained HCPOA and Living will and offered to assist with completing forms. Pt would not like to complete documents at this time but is interested in completing at a later date. SW provided written information including number to call [facility] SW to set appointment to complete papers. CHANTALE Soto
--- NOTE | 2018-04-15 17:32 | PCM.DC.SUM ---
Discharge Date and Diagnosis Date of Admission: 04/11/18 Date of Discharge: 04/13/18 - Primary Discharge Diagnosis #1 new onset atrial fibrillation with RVR #2 hypertension #3 hyperlipidemia - Secondary Discharge Diagnosis Chronic Problems HTN (hypertension) (Chronic) HLD (hyperlipidemia) (Chronic) Hospital Course and Treatment Operations: None Procedures: 2-D Echocardiogram, Nuclear stress test Summary of Care Provided: The patient is a 57 year old M emergency room at [facility] with chief complaint of increased heart rate and irregular heart rate. Patient was seen at a walk-in clinic complaining of vague chest discomfort and palpitations and overall weakness, he was evaluated at the walk-in clinic and found to be in atrial fibrillation and was instructed to go to the ER. Workup in the emergency room included an EKG which showed patient to be in atrial fibrillation with a rate of approximately 130, chest x-ray was performed which was unremarkable, patient's labs were also unremarkable. Patient was given IV Inderal to control his heart rate and was given a dose of Eliquis by the emergency room physician. Cardiology was contacted and the patient was admitted to the hospitalist service on PCU. Cardiac enzymes were cycled and found to be normal, patient's medications were adjusted and he converted to normal sinus rhythm. Patient underwent an echocardiogram which was unremarkable, he also underwent a nuclear stress test that was negative for reversible ischemia. Patient's cardiac enzymes were normal. On 04/13/18, patient was seen and examined and felt to be in stable condition for discharge home. Physical exam: On examination he appeared in good health and spirits. Vital signs as documented. Skin warm and dry and without overt rashes. Neck without JVD. Lungs clear. Heart exam notable for regular rhythm, normal sounds and absence of murmurs, rubs or gallops. Abdomen unremarkable and without evidence of organomegaly, masses, or abdominal aortic enlargement. Extremities nonedematous. Neuro: Cranial nerves II through XII are grossly intact, no neurological deficits to motor function are noted, sensation is intact to light touch and pinprick. Psych: Patient is alert and oriented x3 and appropriate. Patient was discharged home on 04/13/18. Patient was sent to the cardiology department at the time of discharge for placement of a 30-day Holter monitor. - Physical Exam Vital Signs Temp Pulse Resp BP Pulse Ox 97.6 F L 79 16 142/84 H 100 04/13/18 09:15 04/13/18 11:03 04/13/18 09:15 04/13/18 09:15 04/13/18 09:15 Oxygen Delivery Method Room Air Weight: 102.2 kg Body Mass Index (BMI) 31.5 Intake and Output for Last 24 Hours 04/13/18 04/14/18 04/15/18 23:59 23:59 23:59 Intake Total 710 / 710 Balance 710 / 710 Discharge Activity: Return to Normal Activity Weight Bearing Status: Full weight bearing Home Medications: Medications to take at Discharge Diltiazem HCl [Dilacor Xr] 240 mg PO DAILY 07/28/13 Lorazepam [Ativan] 0.5 mg PO QHS PRN PRN 07/28/13 Atorvastatin Calcium [Lipitor] 20 mg PO QHS 07/05/14 Benazepril/Hydrochlorothiazide [Lotensin Hct 10-12.5 mg Tablet] 1 each PO DAILY 07/05/14 Loratadine 10 mg PO DAILY 04/11/18 Naproxen [Naprosyn] 500 mg PO BID PRN PRN 04/11/18 Aspirin E.C. [Ecotrin] 325 mg PO DAILY@0800 tablet 04/13/18 Metoprolol Tartrate [Lopressor (beta kinza)] 75 mg PO BID #90 tablet 04/13/18 Following Prescrptions Were Given to Patient: Metoprolol Tartrate [Lopressor (beta kinza)] 75 mg PO BID #90 tablet Primary Care Physician: Alan Li MD [Primary Care Provider] - Please follow up with your Primary Care Physician in: in 2 weeks Please Follow Up With: Diaz Gonzalez MD When: in 4 weeks Please Follow Up With: Alan Li MD Disposition: Home Minutes spent on discharge:: 31 Patient Condition:: Stable Medical Necessity - Tobacco Use Smoking Status: Never smoker Meaningful Use Info Meaningful Use Diagnoses (Choose all that apply): None applicable Code Visit OBSV E&M: 90401 Observation care discharge
== END 2018-04-13 13:37 | disposition home or self-care (01) ==
LOC: ED 13:22 → PCU 14:26
PROVIDERS: Internal Medicine Cardiovascular Disease; Admitting Provider Internal Medicine; Emergency Provider Emergency Medicine; Family Provider Family Medicine; PCP Family Medicine; Visit Provider Internal Medicine
DX: I48.0 Paroxysmal atrial fibrillation (principal); E78.5 Hyperlipidemia, unspecified; I10 Essential (primary) hypertension; Z79.899 Other long term (current) drug therapy; R94.31 Abnormal electrocardiogram [ECG] [EKG]
CPT/HCPCS: 36415; 71046; 78452; 80048; 80061; 84443; 84484; 85025; 85027; 85610; 85730; 93005; 93017; 93306; 96374; 99218; 99285; A9500; A4216; G0378

== ENCOUNTER 2018-05-18 08:27 | Emergency (ER) | payer OTHER, SELFPAY ==
[2018-05-07 09:30] VITALS: BMI 32.6
[2018-05-18 08:29] VITALS: BP 153/93; PULSE 74; RESP 12; TEMP 36.8; O2SAT 98; BMI 32.4
--- NOTE | 2018-05-18 08:49 | ED.DCSUM_ITS ---
- ER Visit Summary Date of Service: 05/18/18 Chief Complaint: No bleeding History of Present Illness: The patient is a 58 M recently diagnosed with A. fib and has a history of hypertension. Patient is on no blood thinners other than an aspirin a day. He has had rectal bleeding before. He had rectal bleeding this morning without having a bowel movement. He denies any bruising. He denies any nosebleeds. He denies any hematuria. He denies any abdominal pain. No hematemesis. He is not taking Plavix, Coumadin, Xarelto or any other blood thinners except aspirin. He denies being lightheaded or dizzy. He had a prior colonoscopy 9 years ago which showed hemorrhoids. Physical Examination: Well-appearing middle-age male. Vital signs are stable and afebrile. Blood pressure 153/93. HEENT exam unremarkable. Neck nontender. Lungs clear to auscultation bilaterally. Heart regular rate and rhythm rate about 70. No murmur. Abdomen is soft and nontender. Normal bowel sounds no peritoneal signs. Rectal exam there are external hemorrhoids. There were nontender. Not thrombosed. Not bleeding. On rectal he had brown stool with no gross blood. No masses were appreciated. Nontender rectal exam. Patient is moving all 4 extremities. No edema. Back nontender. Neurologically is awake alert without focal deficits. Test Results: CBC shows white count of 6. Hemoglobin of 14 which is the patient's baseline. Emergency Department Course and Treatment: Patient had one episode of bleeding that did not appear to be a large amount of blood. repeat exam the patient is doing well at 9:46. Treatment Plan: Return if increased bleeding or feel worse. Follow-up with outpatient colonoscopy. Disposition: Discharge Impression: Rectal bleeding of uncertain etiology History of hemorrhoids History of recent A. fib This note was generated with [employer] dictation software. It may contain incorrect words, spelling, and punctuation that were not noted in review of the chart prior to signing ED Disposition - Plan for ED Patient: Chief Complaint: GI Bleed Referrals: Alan Li MD [Primary Care Provider] -
[2018-05-18 09:19] LABS: Hematocrit 42.6 % (40-54); Hemoglobin 14.3 g/dl (13.0-16.5); Mean Corp Hgb Conc 33.6 g/gl (32-36); Mean Corpuscular Hgb 28.5 pg (27.0-32.0); Mean Corpuscular Volume 84.9 fL (80-94); Mean Platelet Vol. 9.8 fl (6.2-12.0); Platelet Count 321 K/mm3 (150-450); RBC Distribution Width CV 13.9 % (11.6-14.6); RBC Distribution Width SD 42.5 fl (35.1-43.9); Red Blood Count 5.02 M/mm3 (4.6-6.2); White Blood Count 6.7 K/mm3 (4.4-11.0)
[2018-05-18 09:24] LABS: Scan Indicated on CBC? Y/N NO
--- NOTE | 2018-05-18 09:54 | ED.DEP ---
ED Disposition - Plan for ED Patient: Disposition: Home or Assisted Living Chief Complaint: GI Bleed Instructions: ED Hematochezia Stable Referrals: Alan Li MD [Primary Care Provider] - As soon as possible Additional Instructions: Follow-up your primary care physician to be set up for an outpatient colonoscopy with a local physician of your choice.
== END 2018-05-18 09:59 | disposition home or self-care (01) ==
PROVIDERS: Emergency Provider Emergency Medicine; Family Provider Family Medicine; PCP Family Medicine
DX: K62.5 Hemorrhage of anus and rectum (principal); K64.4 Residual hemorrhoidal skin tags; I48.91 Unspecified atrial fibrillation; I10 Essential (primary) hypertension; Z79.82 Long term (current) use of aspirin; Z79.899 Other long term (current) drug therapy
CPT/HCPCS: 85027; 99282

== ENCOUNTER 2018-07-31 20:09 | Emergency (ER) | payer OTHER, SELFPAY ==
[2018-07-20 09:10] VITALS: BMI 32.4
[2018-07-31 20:10] VITALS: BP 164/107; PULSE 79; RESP 16; TEMP 36.8; O2SAT 99; BMI 33.1
--- NOTE | 2018-07-31 20:50 | RAD_ITS ---
STUDY: X-RAY - LUMBAR SPINE REASON FOR EXAM: Male, 58 years old. Patient fell last Friday and his lower back, large bruise in the lower back, worsening pain and bruising TECHNIQUE: 3 view(s) of the lumbar spine were obtained. COMPARISON: None FINDINGS: Normal lumbar lordosis. There is no substantial scoliosis. There is a normal alignment of the vertebrae. There is multilevel endplate spondylosis of the lumbar vertebrae. Trace amount of disc space narrowing at L4-L5. There is no demonstrated fracture. Mild facet arthropathy of the lower lumbar spine. Fusion anomaly of L4 spinous process noted. The soft tissue structures are unremarkable. RAD/Lumbar Spine 2 or 3 Views IMPRESSION: No demonstrated fracture. Degenerative changes. Electronically Signed: Mikie Santos MD at 21:10 EST , Service support ,
--- NOTE | 2018-07-31 21:14 | ED.VISSUMM ---
- ER Visit Summary Date of Service: 07/31/18 Chief Complaint: Bruising the lower back status post recent fall History of Present Illness: The patient is a 58 M recently diagnosed with A. fib in April. Also history of hypertension and high cholesterol. Currently on Eliquis. 1 week ago he slipped and fell on steps. Landed on his buttock and lower back. Denies any numbness or tingling. He continued his Eliquis after speaking with the health commissioner on-call for his health commissioner. States he is now developed bruising. Denies any numbness or weakness to his lower extremities. No bowel or bladder incontinence. Denies any initial fall with hitting his head. Physical Examination: Well-appearing middle-age male. Vital signs are stable and afebrile. HEENT exam atraumatic. No signs of trauma to his face or scalp. Pupils round reactive light. C-spine nontender. Trachea midline. Lungs clear to auscultation bilaterally. Heart regular rhythm no murmur. Rate about 80. Abdomen is soft and nontender. Normal bowel sounds no peritoneal signs. Chest wall nontender. Back is cervical, and thoracic spine are nontender. The lower lumbar spine along the iliac crest and lower there is bruising soft tissue swelling and tenderness. The bruising goes from the most lateral left iliac crest all the way to the right. There is an obvious hematoma. No gross bony deformity. Both upper and lower extremities neurovascular intact. Nontender. Full range of motion. Normal motor strength and sensation. Neurologic exam normal. NIH is 0. GCS of 15. No cauda equina. No saddle anesthesia. Test Results: Three-view lumbar spine films were obtained. He does have a dorsal spine fracture of L4 or is age-indeterminate. This may be old. There are no old films available for comparison. The vertebral bodies are unremarkable. Read by myself. Emergency Department Course and Treatment: Repeat exam he is doing well at 2114. I went over the x-rays of both he and his . Treatment Plan: Ice to the area. We will hold aspirin and his Eliquis. He has an appointment to see his health commissioner Dr. Thompson on Friday. Disposition: Discharge Impression: Acute fall Lower back contusion with acute tissue hematoma Age-indeterminate L4 dorsal spine fracture (suspect old) Anticoagulated on Eliquis This note was generated with Dragon dictation software. It may contain incorrect words, spelling, and punctuation that were not noted in review of the chart prior to signing ED Disposition - Plan for ED Patient: Referrals: Alan Li MD [Primary Care Provider] -
--- NOTE | 2018-07-31 21:18 | ED.DCSUM_ITS ---
- ER Visit Summary Date of Service: 07/31/18 Chief Complaint: Bruising the lower back status post recent fall History of Present Illness: The patient is a 58 M recently diagnosed with A. fib in April. Also history of hypertension and high cholesterol. Currently on Eliquis. 1 week ago he slipped and fell on steps. Landed on his buttock and lower back. Denies any numbness or tingling. He continued his Eliquis after speaking with the prison keeper on-call for his prison keeper. States he is now developed bruising. Denies any numbness or weakness to his lower extremities. No bowel or bladder incontinence. Denies any initial fall with hitting his head. Physical Examination: Well-appearing middle-age male. Vital signs are stable and afebrile. HEENT exam atraumatic. No signs of trauma to his face or scalp. Pupils round reactive light. C-spine nontender. Trachea midline. Lungs clear to auscultation bilaterally. Heart regular rhythm no murmur. Rate about 80. Abdomen is soft and nontender. Normal bowel sounds no peritoneal signs. Chest wall nontender. Back is cervical, and thoracic spine are nontender. The lower lumbar spine along the iliac crest and lower there is bruising soft tissue swelling and tenderness. The bruising goes from the most lateral left iliac crest all the way to the right. There is an obvious hematoma. No gross bony deformity. Both upper and lower extremities neurovascular intact. Nontender. Full range of motion. Normal motor strength and sensation. Neurologic exam normal. NIH is 0. GCS of 15. No cauda equina. No saddle anesthesia. Test Results: Three-view lumbar spine films were obtained. He does have a dorsal spine fracture of L4 or is age-indeterminate. This may be old. There are no old films available for comparison. The vertebral bodies are unremarkable. Read by myself. Emergency Department Course and Treatment: Repeat exam he is doing well at 2114. I went over the x-rays of both he and his . Treatment Plan: Ice to the area. We will hold aspirin and his Eliquis. He has an appointment to see his prison keeper Dr. Thompson on Friday. Disposition: Discharge Impression: Acute fall Lower back contusion with acute tissue hematoma Age-indeterminate L4 dorsal spine fracture (suspect old) Anticoagulated on Eliquis This note was generated with Dragon dictation software. It may contain incorrect words, spelling, and punctuation that were not noted in review of the chart prior to signing ED Disposition - Plan for ED Patient: Referrals: Alan Li MD [Primary Care Provider] -
--- NOTE | 2018-07-31 21:18 | ED.DEP ---
ED Disposition - Plan for ED Patient: Disposition: Home or Assisted Living Instructions: ED Contusion Back, ED Hematoma Referrals: Alan Li MD [Primary Care Provider] - As Needed Additional Instructions: Hold your Eliquis and if you are taking aspirin hold this at this time also. On hold for the next 5 days. Keep your scheduled appointment with your data communications analyst have him review your bruising. Ice to your back.
[2018-07-31 21:30] VITALS: BP 159/97; PULSE 75; RESP 16; O2SAT 97
[2018-07-31 21:32] VITALS: O2SAT 99
== END 2018-07-31 21:33 | disposition home or self-care (01) ==
PROVIDERS: Emergency Provider Emergency Medicine; Family Provider Family Medicine; PCP Family Medicine
DX: S30.0XXA Contusion of lower back and pelvis, initial encounter (principal); S32.049A Unspecified fracture of fourth lumbar vertebra, initial encounter for closed fracture; X58.XXXA Exposure to other specified factors, initial encounter; W10.9XXA Fall (on) (from) unspecified stairs and steps, initial encounter; Y93.9 Activity, unspecified; Y92.9 Unspecified place or not applicable; I10 Essential (primary) hypertension; I48.91 Unspecified atrial fibrillation; E78.00 Pure hypercholesterolemia, unspecified; Z79.01 Long term (current) use of anticoagulants; Z79.899 Other long term (current) drug therapy
CPT/HCPCS: 72100; 99282

== ENCOUNTER → 2018-08-14 20:00 | Outpatient (CLI) | payer OTHER, SELFPAY ==
[2018-07-20 09:10] VITALS: BMI 32.4
== END ==
PROVIDERS: Family Provider Family Medicine; PCP Family Medicine; Referring Provider Physician Assistant Medical; Visit Provider Physician Assistant Medical
DX: I48.0 Paroxysmal atrial fibrillation (principal); G47.10 Hypersomnia, unspecified
CPT/HCPCS: 95810

== ENCOUNTER → 2018-10-19 | Outpatient (CLI) | payer OTHER, SELFPAY ==
[2018-09-15 15:24] VITALS: BMI 31.5
[2018-10-19 08:21] LABS: AST(SGOT) 23 U/L (15-37); Alanine Aminotransfer ALT/SGPT 35 U/L (16-61); Albumin, Serum 3.8 g/dL (3.2-5.0); Alkaline Phosphatase 94 U/L (45-117); Bilirubin, Direct 0.08 mg/dL (0.00-0.30); Cholesterol 135 mg/dL (200); Globulin 3.5 g/dL (2.2-4.2); High Density Lipoprotein 38 mg/dL; Protein, Total 7.3 g/dL (6.4-8.2); Triglycerides 335 mg/dL; Very Low Density Lipoprotein 67 mg/dL (5-40)
== END | disposition home or self-care (01) ==
LOC: LAB 06:47
PROVIDERS: Family Provider Family Medicine; PCP Family Medicine; Referring Provider Physician Assistant Medical; Visit Provider Physician Assistant Medical
DX: E78.00 Pure hypercholesterolemia, unspecified (principal)
CPT/HCPCS: 36415; 80061; 80076

== ENCOUNTER → 2019-01-19 | Outpatient (CLI) | payer OTHER, SELFPAY ==
[2018-12-17 07:03] VITALS: BMI 31.8
== END | disposition home or self-care (01) ==
LOC: SL 08:25
PROVIDERS: Family Provider Family Medicine; PCP Family Medicine; Referring Provider Internal Medicine Critical Care Medicine; Visit Provider Internal Medicine Critical Care Medicine
DX: G47.33 Obstructive sleep apnea (adult) (pediatric) (principal)
CPT/HCPCS: 98960; G0463

== ENCOUNTER → 2019-03-29 16:05 | Outpatient (CLI) | payer OTHER, SELFPAY ==
[2019-03-29 15:23] VITALS: BMI 32.1
[2019-03-29 17:24] LABS: Absolute Lymphocyte Count 2.22 X10^3/uL (0.83-4.51); Absolute Neutrophil Count 3.8 X10^3/uL (2.0-7.7); Basophil# 0.07 X10^3/uL; Eosinophil# 0.22 X10^3/uL; Hemoglobin 13.9 g/dL (13.0-16.5); Lymphocyte # 2.22 X10^3/ul (4.0); Lymphocyte % 30.6 % (19-41); Mean Corp Hgb Conc 32.3 g/dL (32-36); Mean Corpuscular Hgb 27.7 pg (27.0-32.0); Mean Corpuscular Volume 85.8 fL (80-94); Monocyte# 0.97 X10^3/uL; Monocyte% 13.4 % (0-10); NRBC Flagged by Analyzer 0 % (0-5); Neutrophil # 3.77 X10^3/uL (2.7-7.7); Neutrophil % 51.9 % (47-70); Platelet Count 331 K/mm3 (150-450); RBC Distribution Width CV 13.5 % (11.6-14.6); RBC Distribution Width SD 42.5 fl (35.1-43.9); Red Blood Count 5.01 M/mm3 (4.6-6.2); White Blood Count 7.3 K/mm3 (4.4-11.0)
[2019-03-29 17:51] LABS: Anion Gap 8 (5-15); BUN 14 mg/dL (7-18); BUN/Creat Ratio 17.1 RATIO (10-20); Calcium,Total 9.2 mg/dL (8.5-10.1); Chloride 101 mmol/L (98-107); Creatinine, Serum 0.82 mg/dL (0.70-1.30); EST Glomerular Filtration Rate 103 mL/min (>60); Est Glom Filt Rate - Afr Amer 124 mL/min (>60); Glucose 82 mg/dL (74-106); Magnesium 2.2 mg/dL (1.6-2.6); Potassium 3.4 mmol/L (3.5-5.1); Sodium Level 139 mmol/L (136-145); Thyroid Stim Hormone (TSH) 1.26 uIU/mL (0.358-3.74)
== END ==
PROVIDERS: Family Provider Family Medicine; PCP Family Medicine; Referring Provider Physician Assistant Medical; Visit Provider Physician Assistant Medical
DX: R53.83 Other fatigue (principal)
CPT/HCPCS: 36415; 80048; 83735; 84443; 85025

== ENCOUNTER → 2019-05-18 07:37 | Outpatient (CLI) | payer OTHER, SELFPAY ==
[2019-05-18 07:02] VITALS: BMI 31.1
[2019-05-18 09:21] LABS: AST(SGOT) 24 U/L (15-37); Alanine Aminotransfer ALT/SGPT 39 U/L (16-61); Alkaline Phosphatase 84 U/L (45-117); Cholesterol 169 mg/dL (200); Globulin 3.7 g/dL (2.2-4.2); High Density Lipoprotein 47 mg/dL; Protein, Total 7.7 g/dL (6.4-8.2); Triglycerides 281 mg/dL; Very Low Density Lipoprotein 56 mg/dL (5-40)
== END ==
PROVIDERS: Family Provider Family Medicine; PCP Family Medicine; Referring Provider Nurse Practitioner Family; Visit Provider Nurse Practitioner Family
DX: E78.00 Pure hypercholesterolemia, unspecified (principal)
CPT/HCPCS: 36415; 80061; 80076

== ENCOUNTER → 2019-06-10 16:26 | Outpatient (CLI) | payer OTHER, SELFPAY ==
[2019-05-18 07:02] VITALS: BMI 31.1
[2019-06-10 17:46] LABS: Absolute Lymphocyte Count 2.05 X10^3/uL (0.83-4.51); Absolute Neutrophil Count 3.2 X10^3/uL (2.0-7.7); Basophil# 0.04 X10^3/uL; Basophil% 0.6 % (0-1); Eosinophil# 0.16 X10^3/uL; Eosinophils% 2.4 % (0-5); Hematocrit 44.8 % (40-54); Hemoglobin 14.6 g/dL (13.0-16.5); Lymphocyte # 2.05 X10^3/ul (4.0); Lymphocyte % 31.3 % (19-41); Mean Corp Hgb Conc 32.6 g/dL (32-36); Mean Corpuscular Hgb 28.2 pg (27.0-32.0); Mean Corpuscular Volume 86.5 fL (80-94); Mean Platelet Vol. 10.2 fl (6.2-12.0); Monocyte# 1.06 X10^3/uL; Monocyte% 16.2 % (0-10); NRBC Flagged by Analyzer 0 % (0-5); Neutrophil # 3.21 X10^3/uL (2.7-7.7); Neutrophil % 49.2 % (47-70); Platelet Count 348 K/mm3 (150-450); RBC Distribution Width CV 13.4 % (11.6-14.6); RBC Distribution Width SD 42.2 fl (35.1-43.9); Red Blood Count 5.18 M/mm3 (4.6-6.2); White Blood Count 6.5 K/mm3 (4.4-11.0)
[2019-06-10 17:54] LABS: Anion Gap 5 (5-15); BUN 14 mg/dL (7-18); BUN/Creat Ratio 16.7 RATIO (10-20); Calcium,Total 8.5 mg/dL (8.5-10.1); Chloride 103 mmol/L (98-107); Creatinine, Serum 0.84 mg/dL (0.70-1.30); EST Glomerular Filtration Rate 100 mL/min (>60); Est Glom Filt Rate - Afr Amer 121 mL/min (>60); Glucose 88 mg/dL (74-106); Magnesium 2.4 mg/dL (1.6-2.6); Potassium 3.6 mmol/L (3.5-5.1); Sodium Level 135 mmol/L (136-145)
== END ==
PROVIDERS: Family Provider Family Medicine; PCP Family Medicine; Referring Provider Nurse Practitioner Family; Visit Provider Nurse Practitioner Family
DX: I48.0 Paroxysmal atrial fibrillation (principal); I10 Essential (primary) hypertension; E78.00 Pure hypercholesterolemia, unspecified
CPT/HCPCS: 36415; 80048; 83735; 85025

== ENCOUNTER → 2020-06-12 08:25 | Outpatient (CLI) | payer OTHER, SELFPAY ==
[2020-05-16 06:37] VITALS: BMI 32.6
== END ==
PROVIDERS: PCP Family Medicine; Referring Provider Internal Medicine Cardiovascular Disease; Visit Provider Internal Medicine Cardiovascular Disease
DX: I48.0 Paroxysmal atrial fibrillation (principal); R00.2 Palpitations
CPT/HCPCS: 93225; 93226

== ENCOUNTER 2020-09-08 16:33 | Outpatient (RCR) | payer OTHER, SELFPAY ==
[2020-05-16 06:37] VITALS: BMI 32.6
[2020-09-08] MEDS: COVID-19 VACC, MRNA(PFIZER)/PF 30 MCG/0.3 ML SYRINGE IM (11:35)
[2020-09-29] MEDS: COVID-19 VACC, MRNA(PFIZER)/PF 30 MCG/0.3 ML SYRINGE IM (11:25)
== END 2020-09-08 23:59 ==
LOC: IMMUN 16:33
PROVIDERS: PCP Family Medicine; Visit Provider Family Medicine
DX: Z23 Encounter for immunization (principal)
CPT/HCPCS: 0001A; 0002A; 91300

== ENCOUNTER → 2020-12-08 09:50 | Outpatient (CLI) | payer OTHER, SELFPAY ==
[2020-09-18 08:35] VITALS: BMI 30.1
[2020-12-08 11:15] LABS: Hematocrit 45.1 % (40-54); Hemoglobin 14.5 g/dL (13.0-16.5); Mean Corp Hgb Conc 32.2 g/dL (32-36); Mean Corpuscular Volume 87.1 fL (80-94); Platelet Count 378 K/mm3 (150-450); RBC Distribution Width CV 13.3 % (11.6-14.6); RBC Distribution Width SD 42.6 fl (35.1-43.9); Red Blood Count 5.18 M/mm3 (4.6-6.2); White Blood Count 9.2 K/mm3 (4.4-11.0)
[2020-12-08 12:08] LABS: Anion Gap 8 (5-15); BUN 18 mg/dL (7-18); BUN/Creat Ratio 19.7 RATIO (10-20); Calcium,Total 9.1 mg/dL (8.5-10.1); Chloride 102 mmol/L (98-107); Creatinine, Serum 0.91 mg/dL (0.70-1.30); EST Glomerular Filtration Rate 90 mL/min (>60); Est Glom Filt Rate - Afr Amer 109 mL/min (>60); Glucose 88 mg/dL (74-106); Magnesium 2.3 mg/dL (1.6-2.6); Potassium 3.9 mmol/L (3.5-5.1); Sodium Level 139 mmol/L (136-145); T4 Total, Thyroxin 8.3 ug/dL (4.5-12.1); Thyroid Stim Hormone (TSH) 1.72 uIU/mL (0.358-3.74)
== END ==
PROVIDERS: PCP Family Medicine; Referring Provider Physician Assistant Medical; Visit Provider Physician Assistant Medical
DX: I48.0 Paroxysmal atrial fibrillation (principal); R00.2 Palpitations
CPT/HCPCS: 36415; 80048; 83735; 84436; 84443; 85027

== ENCOUNTER 2021-07-06 14:48 | Outpatient (CLI) | payer OTHER, SELFPAY ==
--- NOTE | 2021-07-06 14:51 | ECHOD_ITS ---
Reason For Study: Afib/Flutter Procedure This was a 2D Doppler, Color Flow transthoracic echocardiogram. The exam was of adequate technical quality. Exam performed in department. Left Ventricle Normal LV size. Left ventricular systolic function is normal. The estimated ejection fraction is 70 %. No evidence for diastolic dysfunction. No regional wall motion abnormalities noted. Right Ventricle Normal RV size. Normal systolic function. Atria Normal left atrium. Normal right atrium. No doppler evidence for ASD. Mitral Valve There is no mitral annular calcification. Normal mitral valve. Trivial mitral valve insufficiency. Tricuspid Valve Normal tricuspid valve. Trivial tricuspid valve insufficiency. Right ventricular systolic pressure estimated to be 26 mmHg. Aortic Valve Trisinus/trileaflet aortic valve. Mild focal aortic valve calcification. Pulmonic Valve The pulmonic valve is not well visualized. Great Vessels The aortic root is not well visualized. Pericardium/Pleural No pericardial effusion. MMode/2D Measurements & Calculations LVIDd: 4.9 cm IVSd: 1.1 cm LA dimension: 3.3 cm LVIDs: 2.8 cm LVPWd: 0.96 cm RVDd: 3.2 cm FS: 42.7 % LAV(MOD-bp): 56.2 ml LA A4 area: 16.7 cm2 RA A4 area: 12.1 cm2 LAV(MOD-bp) Indexed: 25.1 ml/m2 LAV(MOD-sp2): 57.9 ml LAV(MOD-sp4): 47.1 ml Time Measurements MV dec time: 0.28 sec Doppler Measurements & Calculations MV E max mario: 104.0 cm/sec Lat Peak E' Mario: 10.4 cm/sec Med Peak E' Mario: 10.5 cm/sec MV A max mario: 128.9 cm/sec E/E' lat: 10.0 E/E' med: 9.9 MV E/A: 0.81 MV V2 max: 123.3 cm/sec MV P1/2t max mario: 106.9 cm/sec Ao V2 max: 183.0 cm/sec MV max P.1 mmHg MV P1/2t: 89.1 msec Ao max P.4 mmHg MV V2 mean: 72.3 cm/sec MV dec slope: 351.5 cm/sec2 MV mean P.4 mmHg MVA(P1/2t): 2.5 cm2 MV V2 VTI: 44.4 cm LV V1 max: 129.1 cm/sec PA V2 max: 132.9 cm/sec TR max mario: 237.3 cm/sec LV V1 max P.7 mmHg TR max P.5 mmHg ECHO/Echo Complete Interpretation Summary Left ventricular systolic function is normal. The estimated ejection fraction is 70 %. Trivial mitral valve insufficiency. Trivial tricuspid valve insufficiency. Mild focal aortic valve calcification. Right ventricular systolic pressure estimated to be 26 mmHg. No evidence for diastolic dysfunction. Ordering Physician: Diaz Gonzalez Referring Physician: Alan Li Performed By: Amado Dennis RCS
== END 2021-07-06 23:59 | disposition short-term general hospital (02) ==
LOC: CVS 14:50
PROVIDERS: PCP Family Medicine; Referring Provider Internal Medicine Cardiovascular Disease; Visit Provider Internal Medicine Cardiovascular Disease
DX: I48.0 Paroxysmal atrial fibrillation (principal); I10 Essential (primary) hypertension; E78.00 Pure hypercholesterolemia, unspecified
CPT/HCPCS: 93306

== ENCOUNTER 2021-09-03 06:13 | Outpatient (CLI) | payer OTHER, SELFPAY ==
--- NOTE | 2021-09-03 15:51 | RAD_ITS ---
STUDY: X-RAY CHEST REASON FOR EXAM: Male, 61 years old. Status post cardioversion. TECHNIQUE: Frontal and lateral views of the chest. COMPARISON: 04/11/2018. FINDINGS: The lungs are clear and expanded. There is no demonstrated pleural abnormality. Normal size heart. Normal mediastinum and isidro. Normal visualized pulmonary arteries. Normal visualized aortic arch and descending thoracic aorta. Normal visualized thoracic spine. Normal visualized ribs, clavicles, and shoulders. There is no demonstrated abnormality of the visualized soft tissue structures of the upper abdomen. RAD/Chest PA and Lateral IMPRESSION: No interval change. Normal chest. Electronically Signed: Dangelo Levi MD at 9:19 EDT ,
--- NOTE | 2021-09-03 19:10 | STRESSREP ---
Stress Test Report Date: 09-03-2021 Procedure: Exercise tolerance test/imaging study Indications: Chest pain; atrial fibrillation Consent: Per the patient Procedure: The patient exercised on a Ifeanyi protocol for 7 minutes completing Stage II and 1 minute of Stage III achieving a peak heart rate of 207 bpm (128% predicted maximal heart rate) with a peak blood pressure 184/80 mmHg and a peak MET capacity of 9 METs. The baseline ECG demonstrated normal sinus rhythm. The peak exercise ECG demonstrated somatic/motion artifact with no obvious ECG changes. There was an isolated ventricular couplet during exercise and notation of the development of atrial fibrillation with rapid ventricular response during recovery with an occasional PVC and an isolated ventricular couplet with subsequent slowing of the ventricular rate in recovery and status post IV metoprolol 5 mg x 1. The functional capacity was considered good. There was no complaint of chest discomfort during exercise or recovery. The examination was discontinued secondary to leg discomfort. Impression: 1. Technically adequate (percent predicted maximal heart rate greater than 85%) exercise tolerance test 2. Peak exercise ECG with somatic/motion artifact with no obvious ECG changes 3. There was an isolated ventricular couplet during exercise and notation of the development of atrial fibrillation with rapid ventricular response during recovery with an occasional PVC and an isolated ventricular couplet with subsequent slowing of the ventricular rate in recovery and status post IV metoprolol 5 mg x 1 4. Nuclear images pending Myocardial perfusion imaging study: Technique: The patient was injected with 14.2 mCi of technetium 99m Cardiolite and subsequently rest SPECT Cardiolite nuclear imaging was obtained in the horizontal long, vertical long, and short axis views. The patient exercised on a Ifeanyi protocol for 7 minutes completing Stage II and 1 minute of Stage III achieving a peak heart rate of 207 bpm (128% predicted maximal heart rate) with a peak blood pressure 184/80 mmHg and a peak MET capacity of 9 METs. The patient was injected with 43.9 mCi of technetium 99m Cardiolite and subsequently stress SPECT Cardiolite nuclear imaging was obtained in the horizontal long, vertical long, and short axis views. A gated Cardiolite study at peak stress was obtained. Interpretation: Rest and stress SPECT Cardiolite nuclear imaging status post realignment, normalization, and attenuation correction, demonstrates the appearance of relative uniform tracer uptake and myocardial perfusion appearing within normal limits. There is end systolic thickening and brightening. The gated Cardiolite study demonstrates myocardial thickening and inward wall motion. The reported LVEF is 73%. Impression: 1. Rest and stress SPECT Cardiolite nuclear imaging demonstrate relative uniform tracer uptake and myocardial perfusion appearing within normal limits. 2. The gated Cardiolite study reports an LVEF of 73%. This note was generated with [employer] software. It may contain incorrect words, spelling, and punctuation that were not noted in checking the note before signing.
== END 2021-09-03 23:59 | disposition home or self-care (01) ==
PROVIDERS: PCP Family Medicine; Referring Provider Nurse Practitioner Gerontology; Visit Provider Nurse Practitioner Gerontology
DX: I48.0 Paroxysmal atrial fibrillation (principal); R07.9 Chest pain, unspecified
CPT/HCPCS: 71046; 78452; 93017; A9500; A4216

== ENCOUNTER 2021-09-11 13:46 | Outpatient (CLI) | payer OTHER, SELFPAY ==
[2021-09-03 16:04] LABS: International Normalized Ratio 1.2; Prothrombin Time (Protime)PT. 14.7 SECONDS (11.7-14.9)
[2021-09-03 16:53] LABS: Anion Gap 6 (5-15); BUN 13 mg/dL (7-18); BUN/Creat Ratio 16.1 RATIO (10-20); Calcium,Total 9.7 mg/dL (8.5-10.1); Chloride 105 mmol/L (98-107); Creatinine, Serum 0.81 mg/dL (0.70-1.30); EST Glomerular Filtration Rate 103 mL/min (>60); Est Glom Filt Rate - Afr Amer 125 mL/min (>60); Glucose 122 mg/dL (74-106); Potassium 4.5 mmol/L (3.5-5.1); Sodium Level 132 mmol/L (136-145)
== END 2021-09-11 23:59 | disposition home or self-care (01) ==
LOC: CLSP 09-18 13:46
PROVIDERS: Nurse Practitioner Gerontology; PCP Family Medicine; Visit Provider Internal Medicine Cardiovascular Disease
DX: I48.0 Paroxysmal atrial fibrillation (principal)
CPT/HCPCS: 36415; 80048; 85610

== ENCOUNTER 2021-12-17 08:38 | Emergency (ER) | payer OTHER, SELFPAY ==
[2021-12-17 08:39] VITALS: BP 167/93; PULSE 88; RESP 17; TEMP 37.2; O2SAT 99; BMI 30.4
--- NOTE | 2021-12-17 09:38 | ED.VIS.GI ---
HPI HPI - GI History of Present Illness Chief Complaint: Diarrhea Informant: patient Abdominal Pain/Flank Pain Onset: Days (3) Context: Gradual Onset Timing: Waxes and wanes Quality: Burning and Cramping Location: RLQ and LLQ Worsened by: Nothing Relieved by: Nothing Nausea/Vomiting/Emesis GI Symptom: Negative for Nausea or Vomiting Diarrhea/Melena/Hematochezia GI Symptom: Positive for Diarrhea; Negative for Melena or Hematochezia Onset: Days (3) Stool Quality: Positive for Watery Associated Symptoms Associated Symptoms: Positive for - (Dark urine today); Negative for Dysuria, Frequency or Hematuria Narrative Narrative: Patient presents with diarrhea and decreased appetite that has been getting worse over the past 3 days. Patient states his diarrhea has been watery. Patient states he has had multiple episodes of this. Patient denies any melena or hematochezia. Patient admits to decreased appetite. Patient admits to some lower abdominal pain. Patient states it has been waxing and waning over the past few days. Patient describes it as burning and cramping. Patient states nothing makes it better nothing makes it worse. Patient denies any nausea or vomiting. Patient states he has just not been eating much due to his decreased appetite. Patient states he had a recent upper respiratory infection 1 week ago where he had a sore throat and cough. Patient states he developed a headache after this. Patient states this seemed to improve and then his diarrhea and abdominal pain began. Patient also admits to some subjective chills and sweats. Patient states he was scheduled for an outpatient CT scan today. However, when he noticed a dark urine, he called his primary care physician who referred him to the emergency department for possible dehydration. [facility] Medical History (Updated 12/17/21 @ 12:[address] Adarsh Pfeiffer, DO) Atrial fibrillation Bronchitis Essential (primary) hypertension Hypersomnia New-onset atrial fibrillation with RVR RAMSEY (obstructive sleep apnea) Palpitations Paroxysmal atrial fibrillation Pure hypercholesterolemia Home Medications loratadine 10 mg tablet 10 mg PO DAILY PRN Allergies 04/11/18 [History Last Taken 04/11/18 10 MG] atorvastatin 20 mg tablet 20 mg PO QHS HYPERLIPIDEMIA #90 tabs 03/29/19 [Rx Last Taken Unknown] melatonin 3 mg capsule 3 mg PO HS 03/29/19 [History Last Taken Unknown] benazepril 20 mg tablet 20 mg PO DAILY #90 tabs 05/15/20 [Rx Last Taken Unknown] lorazepam 0.5 mg tablet 0.5 mg PO TID PRN Anxiety 09/18/20 [History Last Taken Unknown] potassium chloride 10 mEq tablet,extended release (Klor-Con) 10 meq PO DAILY #90 tabs 03/12/21 [Rx Last Taken Unknown] metoprolol tartrate 100 mg tablet 100 mg PO BID #180 tabs 04/11/21 [Rx Last Taken Unknown] hydrochlorothiazide 12.5 mg tablet 12.5 mg PO DAILY #90 tabs 05/14/21 [Rx Last Taken Unknown] rivaroxaban 20 mg tablet (Xarelto) 20 mg PO DAILY #90 tabs 11/20/21 [Rx Last Taken Unknown] diltiazem HCl 360 mg capsule,extended release 24 hr 240 mg PO DAILY 12/17/21 [History Last Taken Unknown] ondansetron 4 mg disintegrating tablet 4 mg PO Q8H PRN PRN Nausea #10 tabs 12/17/21 [Rx Last Taken Unknown] Allergy/AdvReac Type Severity Reaction Status Date / Time hydrocodone [From Vicodin] AdvReac Other Verified 12/17/21 08:39 Family History Mother Heart disease valve replacement Father Hypertension Kidney disease Heart disease valve problems Surgical History History of cataract extraction Social History household members: spouse housing: house current occupational status: employed current occupation: [employer] [employer] [place] [address] pets and animals: Yes pets and animals: dog(s) Smoking Status: Never smoker second hand exposure: No alcohol intake: current alcohol intake frequency: holidays/special occasions only Alcohol type: beer and wine substance use type: does not use caffeine: Yes Type: coffee Number of servings: 1 ROS ROS ED Constitutional Constitutional ED: Reports chills and subjective; Denies fever(s) Eyes Eyes: Denies blurry vision or change in vision ENT ENT ED: Reports sore throat; Denies rhinorrhea Cardiovascular Cardiovascular: Denies chest pain or palpitations Respiratory/Chest Respiratory/Chest: Reports cough; Denies dyspnea Gastrointestinal Gastrointestinal: Reports abdominal pain and diarrhea; Denies melena, nausea or vomiting Genitourinary Genitourinary ED: Denies dysuria or hematuria Musculoskeletal Musculoskeletal: Denies back pain or neck pain Integumentary Denies abscess or rash Neurologic Neurologic: Reports headache(s); Denies weakness Allergic/Immunologic Allergic/Immunologic ED: Denies mouth swelling or urticaria EXAM Physical Exam Const Vital Signs: 12/17/21 08:39 Temperature 98.9 F Temperature Source Temporal Pulse Rate 88 Respiratory Rate 17 Blood Pressure 167/93 H Blood Pressure Mean 117 Pulse Ox 99 Oxygen Delivery Method Room Air Positive well nourished and well developed General Appearance ED: well developed and NAD HEENT Reports moist mucous membranes Neck supple and no JVD Resp normal respiratory effort and clear to auscultation bilaterally Cardio regular rate, regular rhythm and no murmurs GI normal to inspection, nondistended, normoactive bowel sounds Palpation: soft and tender LLQ, RLQ and suprapubic; Negative for guarding or rebound tenderness present Extremity normal to inspection General Extremety ED: Negative for edema or tenderness General Extremity: Negative for edema Neuro oriented x3, CN's II-XII intact bilaterally and no sensory deficits noted Sensorium / Orientation: alert Motor Exam: strength 5/5 throughout Psych mental status grossly normal Skin no rashes or lesions noted MDM MDM MDM Narrative Medical decision making narrative: Patient was given IV fluids here. CBC was within normal limits. Comprehensive metabolic profile showed slightly elevated alkaline phosphatase of 177, ALT of 143, and AST of 94. Total bilirubin was normal. Urinalysis was obtained. There is no evidence of urinary tract infection or hematuria. CT scan of the abdomen pelvis was obtained. There is no acute abnormality noted. There is a questionable recently passed left ureteral calculus. Patient is feeling better on reevaluation. Patient was given a prescription for Zofran. Patient was instructed to follow-up with his primary care physician this week as scheduled. Patient understood and was agreeable with the plan. All questions were answered. Lab Data Attestation: I reviewed the patient's lab results. Labs: Laboratory Results - last 24 hr 12/17/21 12/17/21 12/17/21 08:55 08:55 10:00 WBC 10.5 RBC 5.18 Hgb 14.5 Hct 44.6 MCV 86.1 MCH 28.0 MCHC 32.5 RDW Std Deviation 41.7 RDW Coeff of Ryan 13.2 Plt Count 363 MPV 9.5 Immature Gran % (Auto) 0.400 Neut % (Auto) 81.7 H Lymph % (Auto) 5.9 L Alfalfa % (Auto) 9.4 Eos % (Auto) 2.2 Baso % (Auto) 0.4 Absolute Neuts (auto) 8.6 H Absolute Lymphs (auto) 0.62 L Nucleated RBC % 0 Sodium 136 Potassium 3.6 Chloride 100 Carbon Dioxide 28.0 Anion Gap 8 BUN 12 Creatinine 0.90 Estim Creat Clear Calc 92.96 Est GFR (MDRD) Af Amer 111 Est GFR (MDRD) Non-Af 92 BUN/Creatinine Ratio 13.4 Glucose 98 Calcium 9.0 Total Bilirubin 0.70 AST 94 H ALT 143 H Alkaline Phosphatase 177 H Total Protein 8.0 Albumin 3.7 Globulin 4.3 H Albumin/Globulin Ratio 0.9 Lipase 215 Urine Color Yellow Urine Clarity Clear Urine pH 7.0 Ur Specific [place] 1.010 Urine Protein Negative Urine Glucose (UA) Normal Urine Ketones Negative Urine Occult Blood Negative Urine Nitrite Negative Urine Bilirubin Negative Urine Urobilinogen Normal Ur Leukocyte Esterase Negative Urine RBC 0 SEEN Urine WBC 0 SEEN Ur Squamous Epith Cells 0 SEEN Urine Bacteria 0 SEEN Urine Mucus 0 SEEN Radiography Diagnostic Testing: Clinical Impression(s) from Imaging Studies Abdomen/Pelvis CT 12/17/21 09:46 IMPRESSION: No obstructive uropathy is seen at this time. Questionable recently passed left ureteral calculus. Electronically Signed: Jose Wesley MD at 11:59 EDT , Discharge Plan Triage Chief Complaint: Diarrhea ED Provider: Adarsh Pfeiffer Dx/Rx/DC Orders Clinical Impression: Abdominal pain, Diarrhea Instructions: ED Diarrhea, Unknown Cause Prescriptions: New ondansetron [ondansetron] 4 MG tablet 4 mg PO Q8H PRN PRN (Reason: Nausea) Qty: 10 0RF No Action melatonin 3 mg capsule 3 mg PO HS atorvastatin 20 mg tablet 20 mg PO QHS Qty: 90 3RF lorazepam 0.5 mg tablet 0.5 mg PO TID PRN (Reason: Anxiety) loratadine 10 MG tablet 10 mg PO DAILY PRN (Reason: Allergies) diltiazem HCl 360 mg capsule,extended release 24hr 240 mg PO DAILY benazepril 20 mg tablet 20 mg PO DAILY Qty: 90 3RF potassium chloride [Klor-Con 10] 10 mEq tablet extended release 10 meq PO DAILY Qty: 90 3RF metoprolol tartrate 100 mg tablet 100 mg PO BID Qty: 180 3RF hydrochlorothiazide 12.5 mg tablet 12.5 mg PO DAILY Qty: 90 3RF Xarelto 20 mg tablet 20 mg PO DAILY Qty: 90 3RF Rx Instructions: must administer with evening meal Primary Care Provider: Alan Li Referrals: Alan Li MD [Primary Care Provider] - Keep [facility] appointment Disposition Disposition: Home, Self Care
--- NOTE | 2021-12-17 09:46 | CT_ITS ---
STUDY: CT ABDOMEN AND PELVIS WITH CONTRAST REASON FOR EXAM: Male, 61 years old. Abdominal pain -- IV PO Contrast. Nausea and diarrhea. RADIATION DOSAGE (If Supplied By Facility): CTDIvol = ( 12.76 ) mGy, DLP = ( 1054.96 ) mGycm TECHNIQUE: Transaxial images were obtained from the dome of the diaphragm to the symphysis pubis with oral contrast. Oral and amp; IV Gastrografin and amp; 100mL Isovue-300 was administered. Sagittal and coronal images were reconstructed. Individualized dose optimization techniques were used for this CT. COMPARISON: None. FINDINGS: The visualized lung bases are unremarkable. The visualized portions of the heart are within normal limits. There is decreased attenuation of the liver consistent with steatosis. Normal gallbladder and extrahepatic biliary system. Normal spleen. Normal pancreas. Normal bilateral adrenal glands. Normal right kidney. Mildly dilated left ureter. Nonobstructive calculus is seen. A recently passed calculus should be ruled out. There is a small hiatal hernia. Normal small intestine. Normal colon. The appendix is visualized and appears normal. There is scattered atherosclerotic calcification of the abdominal aorta, without a demonstrated aneurysm. Normal inferior vena cava. Normal retroperitoneum. Normal urinary bladder. The prostate measures 4.9 cm x 3.7 cm. There is a left-sided inguinal hernia containing adipose tissue. There are degenerative changes of the visualized lumbar spine. CT/Abdomen/Pelvis WITH Contrast IMPRESSION: No obstructive uropathy is seen at this time. Questionable recently passed left ureteral calculus. Electronically Signed: Jose Wesley MD at 11:59 EDT ,
[2021-12-17] MEDS: 0.9% Normal Saline 1,000 ML 1000 ML IV (09:59)
[2021-12-17 10:00] LABS: Absolute Lymphocyte Count 0.62 X10^3/uL (0.83-4.51); Absolute Neutrophil Count 8.6 X10^3/uL (2.0-7.7); Basophil# 0.04 X10^3/uL; Basophil% 0.4 % (0-1); Eosinophil# 0.23 X10^3/uL; Eosinophils% 2.2 % (0-5); Hematocrit 44.6 % (40-54); Hemoglobin 14.5 g/dL (13.0-16.5); Lymphocyte # 0.62 X10^3/ul (0.83-4.51); Lymphocyte % 5.9 % (19-41); Mean Corp Hgb Conc 32.5 g/dL (32-36); Mean Corpuscular Volume 86.1 fL (80-94); Mean Platelet Vol. 9.5 fl (6.2-12.0); Monocyte# 0.99 X10^3/uL; Monocyte% 9.4 % (0-10); NRBC Flagged by Analyzer 0 % (0-5); Neutrophil % 81.7 % (47-70); Platelet Count 363 K/mm3 (150-450); RBC Distribution Width CV 13.2 % (11.6-14.6); RBC Distribution Width SD 41.7 fl (35.1-43.9); Red Blood Count 5.18 M/mm3 (4.6-6.2); White Blood Count 10.5 K/mm3 (4.4-11.0)
[2021-12-17 10:12] LABS: Bacteria 0 SEEN /hpf (None Seen); Mucous, Urine 0 SEEN /hpf (<or=2+); Red Blood Cells-Urine 0 SEEN /hpf (0-5); Squamous Epithelial Cells - UA 0 SEEN /hpf (0-5); White Blood Cells 0 SEEN /hpf (0-5)
[2021-12-17 10:13] LABS: Color, Urine Yellow (Yellow); Glucose, Dipstick Normal (Normal); Ketone-Dipstick Negative (Negative); Leukocyte Esterase-Dipstick Negative /ul (Negative); Nitrite-Dipstick Negative (Negative); Occult Blood-Urine Negative /ul (Negative); Protein-Dipstick Negative (Negative); Urine Bilirubin Dipstick Negative (Negative); Urine Clarity Clear (Clear); Urine Urobilinogen Normal (Normal)
[2021-12-17 10:16] LABS: ALB/GLOB Ratio 0.9 RATIO (0.9-2.4); AST(SGOT) 94 U/L (15-37); Alanine Aminotransfer ALT/SGPT 143 U/L (16-61); Albumin, Serum 3.7 g/dL (3.2-5.0); Alkaline Phosphatase 177 U/L (45-117); Anion Gap 8 (5-15); BUN 12 mg/dL (7-18); BUN/Creat Ratio 13.4 RATIO (10-20); Chloride 100 mmol/L (98-107); EST Glomerular Filtration Rate 92 mL/min (>60); Est Glom Filt Rate - Afr Amer 111 mL/min (>60); Estimated Creatinine Clearance 92.96 ml/min; Globulin 4.3 g/dL (2.2-4.2); Glucose 98 mg/dL (74-106); Lipase 215 U/L (73-393); Potassium 3.6 mmol/L (3.5-5.1); Sodium Level 136 mmol/L (136-145)
[2021-12-17 13:22] VITALS: BP 124/74; PULSE 71; RESP 18; O2SAT 97
== END 2021-12-17 13:24 | disposition home or self-care (01) ==
PROVIDERS: Emergency Provider Emergency Medicine; PCP Family Medicine; Visit Provider Emergency Medicine
DX: R10.30 Lower abdominal pain, unspecified (principal); I48.0 Paroxysmal atrial fibrillation; I10 Essential (primary) hypertension; G47.33 Obstructive sleep apnea (adult) (pediatric); E78.00 Pure hypercholesterolemia, unspecified; Z79.899 Other long term (current) drug therapy; R19.7 Diarrhea, unspecified
CPT/HCPCS: 74177; 80053; 81001; 83690; 85025; 87428; 96360; 99283; J7030; Q9967; A4216

== ENCOUNTER 2022-08-07 02:41 | Emergency (ER) | payer OTHER, SELFPAY ==
[2022-08-07 02:42] VITALS: TEMP 36.8; BMI 31.3
[2022-08-07 02:44] VITALS: BP 145/94; PULSE 70; RESP 16; O2SAT 98
--- NOTE | 2022-08-07 03:11 | CT_ITS ---
INDICATION: dizziness EXAMINATION: CT BRAIN - CT Head or Brain W/O Contrast Injection TECHNIQUE: Multiple axial images were obtained of the head without intravenous contrast. A radiation dose optimization technique was used for this scan. IV Contrast dosage and agent: None. COMPARISON: FINDINGS: BRAIN PARENCHYMA: No intra- or extra-axial hemorrhage. No evidence of acute infarct. No intracranial mass or mass effect. There is preservation of the pandey/white matter interface. Posterior fossa structures are unremarkable. 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 CSF SPACES: Appropriate for age. No hydrocephalus. Basal cisterns are patent. CALVARIUM, SKULL BASE, PARANASAL SINUSES AND MASTOID AIR CELLS: Clear. No discrete lytic or blastic abnormalities. ORBITS: Both globes, extraocular muscles, optic nerves and retrobulbar fat appear unremarkable. 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 Electronically Signed: Sharath Jones MD at 3:44 EST ,
[2022-08-07] MEDS: diazePAM 5 MG Tablet PO (03:18)
[2022-08-07] MEDS: Ondansetron 4 MG/2 ML Vial IV ×2 (03:18→04:36)
[2022-08-07 04:01] LABS: Absolute Lymphocyte Count 3.14 X10^3/uL (0.83-4.51); Absolute Neutrophil Count 4.6 X10^3/uL (2.0-7.7); Basophil# 0.06 X10^3/uL; Basophil% 0.6 % (0-1); Eosinophil# 0.36 X10^3/uL; Eosinophils% 3.7 % (0-5); Hematocrit 42.7 % (40-54); Hemoglobin 13.8 g/dL (13.0-16.5); Lymphocyte # 3.14 X10^3/ul (0.83-4.51); Lymphocyte % 32.5 % (19-41); Mean Corp Hgb Conc 32.3 g/dL (32-36); Mean Corpuscular Hgb 27.5 pg (27.0-32.0); Mean Corpuscular Volume 85.2 fL (80-94); Mean Platelet Vol. 9.8 fl (6.2-12.0); Monocyte# 1.45 X10^3/uL; NRBC Flagged by Analyzer 0 % (0-5); Neutrophil # 4.62 X10^3/uL (2.7-7.7); Neutrophil % 47.9 % (47-70); Platelet Count 353 K/mm3 (150-450); RBC Distribution Width CV 13.5 % (11.6-14.6); RBC Distribution Width SD 42.2 fl (35.1-43.9); Red Blood Count 5.01 M/mm3 (4.6-6.2); White Blood Count 9.7 K/mm3 (4.4-11.0)
[2022-08-07 04:30] LABS: Anion Gap 6 (5-15); BUN 18 mg/dL (7-18); BUN/Creat Ratio 21.6 RATIO (10-20); Calcium,Total 9.1 mg/dL (8.5-10.1); Chloride 103 mmol/L (98-107); Creatinine, Serum 0.83 mg/dL (0.70-1.30); EST Glomerular Filtration Rate 100 mL/min (>60); Est Glom Filt Rate - Afr Amer 120 mL/min (>60); Estimated Creatinine Clearance 99.54 ml/min; Glucose 118 mg/dL (74-106); Magnesium 2.2 mg/dL (1.6-2.6); Potassium 3.4 mmol/L (3.5-5.1); Sodium Level 139 mmol/L (136-145)
[2022-08-07 04:41] VITALS: BP 133/74; PULSE 68; RESP 16; O2SAT 95
--- NOTE | 2022-08-07 06:19 | EDS_ITS ---
HPI History of Present Illness Chief Complaint: Dizziness Narrative Narrative: Patient is a 62-year-old male with past medical history of paroxysmal atrial fibrillation currently on Xarelto. He states that he went to bed normally and then woke up to use the bathroom and as he sat up felt dizzy. He describes the dizziness as a sense of motion. He states that he cannot walk without having to hold onto the wall as he stumbles side to side and reports he is walking almost like he is drunk. He denies any chest pain or shortness of breath any change in vision or headache associated with this. He does report nausea. He states that if he remains still the symptoms resolve/improve but is soon as he moves his head once again to change positions they return and with this occurring he is concerned for something neurologic and therefore comes in for evaluation [facility] Medical History (Updated 08/09/22 @ 04:[address] Avila Orellana, ) Atrial fibrillation Bronchitis Essential (primary) hypertension Hypersomnia New-onset atrial fibrillation with RVR RAMESY (obstructive sleep apnea) Palpitations Paroxysmal atrial fibrillation Pure hypercholesterolemia Home Medications loratadine 10 mg tablet 10 mg PO DAILY PRN Allergies 04/11/18 [History Last Taken 04/11/18 10 MG] atorvastatin 20 mg tablet 20 mg PO QHS HYPERLIPIDEMIA #90 tabs 03/29/19 [Rx Last Taken Unknown] melatonin 3 mg capsule 3 mg PO HS 03/29/19 [History Last Taken Unknown] benazepril 20 mg tablet 20 mg PO DAILY #90 tabs 05/15/20 [Rx Last Taken Unknown] lorazepam 0.5 mg tablet 0.5 mg PO TID PRN Anxiety 09/18/20 [History Last Taken Unknown] potassium chloride 10 mEq tablet,extended release (Klor-Con) 10 meq PO DAILY #90 tabs 03/04/22 [Rx Last Taken Unknown] metoprolol tartrate 100 mg tablet 100 mg PO BID #180 tabs 04/09/22 [Rx Last Taken Unknown] diltiazem HCl 240 mg capsule,extended release 24 hr 240 mg PO DAILY #90 caps 04/22/22 [Rx Last Taken Unknown] hydrochlorothiazide 12.5 mg tablet 12.5 mg PO DAILY #90 tabs 05/06/22 [Rx Last Taken Unknown] rivaroxaban 20 mg tablet (Xarelto) 20 mg PO DAILY #90 tabs 05/06/22 [Rx Last Taken Unknown] omeprazole 20 mg capsule,delayed release 20 mg PO DAILY PRN 07/11/22 [History Last Taken Unknown] diazepam 5 mg tablet (Valium) 5 mg PO TID PRN vertigo 5 days #15 tabs 08/07/22 [Rx Last Taken Unknown] ondansetron 4 mg disintegrating tablet 4 mg PO TID PRN nausea and vomiting #21 tabs 08/07/22 [Rx Last Taken Unknown] Allergy/AdvReac Type Severity Reaction Status Date / Time hydrocodone [From Vicodin] AdvReac Other Verified 08/07/22 02:45 Family History (Reviewed 07/11/22 @ 16:09 by Alcides Guerrier PILE DRIVER OPERATOR HELPER, PILE DRIVER OPERATOR HELPER-C) Mother Heart disease valve replacement Father Hypertension Kidney disease Heart disease valve problems Surgical History History of cataract extraction Social History (Reviewed 07/11/22 @ 16:09 by Alcides Guerrier PILE DRIVER OPERATOR HELPER, PILE DRIVER OPERATOR HELPER-C) household members: spouse housing: house current occupational status: employed current occupation: [employer] [place] [address] pets and animals: Yes pets and animals: dog(s) Smoking Status: Never smoker second hand exposure: No alcohol intake: current alcohol intake frequency: holidays/special occasions only Alcohol type: beer and wine substance use type: does not use caffeine: Yes Type: coffee Number of servings: 1 ROS ROS ED Constitutional Constitutional ED: Denies chills or fever(s) Eyes Eyes: Denies blurry vision or change in vision ENT ENT ED: Reports other Details: Negative tinnitus ; Denies ear pain or sore throat Cardiovascular Cardiovascular: Denies chest pain Respiratory/Chest Respiratory/Chest: Denies cough or dyspnea Gastrointestinal Gastrointestinal: Reports nausea; Denies abdominal pain, diarrhea or vomiting Genitourinary Genitourinary ED: Denies dysuria Musculoskeletal Musculoskeletal: Denies myalgias Integumentary Denies rash Neurologic Neurologic: Reports other Details: Positive dizziness ; Denies headache(s) Hematologic/Lymphatic Hematologic/Lymphatic: Reports easy bleeding and easy bruising EXAM Physical Exam Const Vital Signs: 08/07/22 02:42 08/07/22 02:44 08/07/22 03:26 Temperature 98.2 F Temperature Source Temporal Pulse Rate 70 Respiratory Rate 16 Respiratory Effort Normal Non-Labored Respiratory Pattern Normal Blood Pressure 145/94 H Blood Pressure Mean 111 Pulse Ox 98 Oxygen Delivery Method Room Air 08/07/22 04:41 Temperature Temperature Source Pulse Rate 68 Respiratory Rate 16 Respiratory Effort Respiratory Pattern Blood Pressure 133/74 H Blood Pressure Mean 93 Pulse Ox 95 Oxygen Delivery Method Room Air Positive well nourished, well developed and obese General Appearance ED: well developed Nutritional Appearance: obese HEENT Reports TM's clear and moist mucous membranes Tympanic Membrane ED: Yes TM's clear Eyes PERRL and EOMs intact bilaterally Neck supple Resp normal respiratory effort and clear to auscultation bilaterally Cardio regular rate and regular rhythm Rate: other Other Details: Radial pulses are plus 2 out of 4 bilaterally are equal and symmetric GI normal to inspection, nondistended, normoactive bowel sounds, non-tender, non-d istended and no masses GI Narrative: No voluntary guarding or rigidity no pulsatile mass Auscultation: normoactive bowel sounds Palpation: soft Extremity normal to inspection Neuro oriented x3, CN's II-XII intact bilaterally and no sensory deficits noted Neuro Narrative: Cranial nerves II through XII are grossly intact there are no focal neurologic deficits. No pronator drift no dysmetria no truncal ataxia. NIH stroke scale score of 0. Patient does have horizontal nystagmus present on exam as well as positive Hallpike Solitario exam on right. Sensorium / Orientation: alert Psych mental status grossly normal Skin no rashes or lesions noted MDM MDM MDM Narrative Medical decision making narrative: Patient presented to the ER with stable vitals and normal neurologic exam. His history of dizziness is most consistent with peripheral vertigo but with concern for spontaneous hemorrhagic stroke because of his Xarelto or dehydration or electrolyte abnormality a basic work-up was obtained along with head CT. Labs revealed no clinically significant finding. Head CT revealed a old MCA infarct but no acute finding. Patient was treated with IV fluids as well as Valium and Zofran. On reevaluation he had improvement of his dizziness and could ambulate with a steady gait. Therefore at this time as work-up reveals no acute findings and his dizziness has resolved with treatment my concern that this is central vertigo and not peripheral is low and he is otherwise safe for discharge Lab Data Attestation: I reviewed the patient's lab results. Labs: Laboratory Results - last 24 hr 08/07/22 08/07/22 03:45 03:45 WBC 9.7 RBC 5.01 Hgb 13.8 Hct 42.7 MCV 85.2 MCH 27.5 MCHC 32.3 RDW Std Deviation 42.2 RDW Coeff of Ryan 13.5 Plt Count 353 MPV 9.8 Immature Gran % (Auto) 0.300 Neut % (Auto) 47.9 Lymph % (Auto) 32.5 Dickey % (Auto) 15.0 H Eos % (Auto) 3.7 Baso % (Auto) 0.6 Absolute Neuts (auto) 4.6 Absolute Lymphs (auto) 3.14 Nucleated RBC % 0 Sodium 139 Potassium 3.4 L Chloride 103 Carbon Dioxide 30.0 Anion Gap 6 BUN 18 Creatinine 0.83 Estim Creat Clear Calc 99.54 Est GFR (MDRD) Af Amer 120 Est GFR (MDRD) Non-Af 100 BUN/Creatinine Ratio 21.6 H Glucose 118 H Calcium 9.1 Magnesium 2.2 Radiography Diagnostic Testing: Clinical Impression(s) from Imaging Studies Brain CT 08/07/22 03:11 IMPRESSION: 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 Instructions: Vertigo Staying Safe, ED BPV Vertigo Prescriptions: New diazepam [Valium] 5 mg tablet 5 mg PO TID PRN (Reason: vertigo) 5 Days Qty: 15 0RF ondansetron 4 mg tablet,disintegrating 4 mg PO TID PRN (Reason: nausea and vomiting) Qty: 21 0RF No Action melatonin 3 mg capsule 3 mg PO HS atorvastatin 20 mg tablet 20 mg PO QHS Qty: 90 3RF omeprazole 20 mg capsule,delayed release(DR/EC) 20 mg PO DAILY PRN Rx Instructions: 2 caps daily lorazepam 0.5 mg tablet 0.5 mg PO TID PRN (Reason: Anxiety) loratadine 10 MG tablet 10 mg PO DAILY PRN (Reason: Allergies) benazepril 20 mg tablet 20 mg PO DAILY Qty: 90 3RF potassium chloride [Klor-Con 10] 10 mEq tablet extended release 10 meq PO DAILY Qty: 90 3RF metoprolol tartrate 100 mg tablet 100 mg PO BID Qty: 180 4RF diltiazem HCl 240 mg capsule,extended release 24hr 240 mg PO DAILY Qty: 90 3RF hydrochlorothiazide 12.5 mg tablet 12.5 mg PO DAILY Qty: 90 3RF Xarelto 20 mg tablet 20 mg PO DAILY Qty: 90 3RF Rx Instructions: must administer with evening meal Stand Alone Forms: ED Work / School Excuse Primary Care Provider: Alan Li Referrals: Alan Li MD [Primary Care Provider] - Activity Restrictions/Additional Instructions: Your exam and work-up today indicates that you have peripheral vertigo. Take the medication prescribed as directed to help control this. You may also try the Vimal maneuver to resolve your symptoms. If you are taking the Valium for vertigo please do not take your lorazepam as these work in similar fashion and I do not want you to overdose on medication. If you have any further concerns please return for repeat evaluation Disposition Disposition: Home, Self Care Discharge Date/Time: 08/07/22 06:42
[2022-08-07 06:41] VITALS: BP 124/73; PULSE 63; RESP 13; O2SAT 95
== END 2022-08-07 06:42 | disposition home or self-care (01) ==
PROVIDERS: Emergency Provider Emergency Medicine; PCP Family Medicine; Visit Provider Emergency Medicine
DX: H81.399 Other peripheral vertigo, unspecified ear (principal); I48.0 Paroxysmal atrial fibrillation; I10 Essential (primary) hypertension; G47.33 Obstructive sleep apnea (adult) (pediatric); E66.9 Obesity, unspecified; Z79.01 Long term (current) use of anticoagulants
CPT/HCPCS: 70450; 80048; 83735; 85025; 96374; 96376; 99285; J7040; A4216; J2405

== ENCOUNTER → 2022-09-04 | Outpatient (CLI) | payer OTHER, SELFPAY ==
--- NOTE | 2022-09-04 08:00 | MRI_ITS ---
STUDY: MRI BRAIN WITH AND WITHOUT CONTRAST (ATTENTION INTERNAL AUDITORY CANALS - I.A.C.''s) REASON FOR EXAM: Male, 62 years old. Asymmetric hearing loss and dizziness. TECHNIQUE: Standardized multiplanar fat and water weighted pulse sequences were obtained. 20 mL of IV Clariscan. was administered for the contrast portion of the examination. COMPARISON: CT head without contrast 08/07/2022. FINDINGS: Normal bilateral temporal bones. Normal bilateral internal auditory canals. There is no demonstrated intracanalicular or cisternal vestibular schwannoma (acoustic neuroma). There is no enhancement of the bilateral VIIth or VIIIth cranial nerves. Normal bilateral cochlea, vestibules and semicircular canals. Focal atrophy with cystic encephalomalacia in the caudal half of the right postcentral gyrus. No other focal signal abnormalities throughout the brain parenchyma. Normal size of the ventricles and extra-axial spaces for the patient''s age. Normal white matter tracts of the supratentorial brain. Normal bilateral basal ganglia. Normal thalami. Normal flow voids within the major intracranial circulation suggesting patency by spin echo criteria. Normal venous enhancement. There is no enhancing intra-axial or extra-axial abnormality. There is no extra-axial fluid accumulation. Normal sella turcica, pituitary gland, infundibular stalk, optic chiasm and hypothalamus. Normal tectal plate and pineal gland. Normal midbrain, russell and medulla. Normal cerebellum. Normal basal cisterns. No demonstrated orbital abnormality, within the constraints of a routine brain study. Normal visualized paranasal sinuses. Normal calvarium and skull base. Normal visualized soft tissue structures. Normal visualized upper cervical spine. MRI/Brain W/WO Contrast IMPRESSION: Focal atrophy with cystic encephalomalacia in the caudal half of the right postcentral gyrus is unchanged. Otherwise negative unenhanced and enhanced MRI of the bilateral internal auditory canals (I.A.C''s). Electronically Signed: Francois Gonzalez MD at 10:56 EDT ,
== END | disposition home or self-care (01) ==
LOC: MRI 07:43
PROVIDERS: PCP Family Medicine; Referring Provider Otolaryngology Otolaryngology/Facial Plastic Surgery; Visit Provider Otolaryngology Otolaryngology/Facial Plastic Surgery
DX: H90.42 Sensorineural hearing loss, unilateral, left ear, with unrestricted hearing on the contralateral side (principal); R42 Dizziness and giddiness
CPT/HCPCS: 70553; A9575

== ENCOUNTER 2023-12-16 09:04 | Emergency (ER) | payer OTHER, SELFPAY ==
[2023-12-16 09:06] VITALS: BP 158/95; PULSE 60; RESP 14; TEMP 35.6; O2SAT 98; BMI 32.8
--- NOTE | 2023-12-16 09:26 | EKG12_ITS ---
Test Reason : CHEST BURNING Blood Pressure : / mmHG Vent. Rate : 063 BPM Atrial Rate : 063 BPM P-R Int : 200 ms QRS Dur : 110 ms QT Int : 404 ms P-R-T Axes : 046 -33 008 degrees QTc Int : 413 ms Normal sinus rhythm Left axis deviation Incomplete right bundle branch block Abnormal ECG Confirmed by Luis Miguel Freed ([id number]), web content editor ROBERT BROWNE ([id number]) on 12/17/2023 9:15:34 AM Referred By: Confirmed By:Luis Miguel Freed
[2023-12-16 09:45] LABS: Absolute Lymphocyte Count 1.71 X10^3/uL (0.83-4.51); Absolute Neutrophil Count 5.5 X10^3/uL (2.0-7.7); Basophil# 0.08 X10^3/uL; Eosinophil# 0.18 X10^3/uL; Eosinophils% 2.2 % (0-5); Hematocrit 46.2 % (40-54); Hemoglobin 15.1 g/dL (13.0-16.5); Lymphocyte # 1.71 X10^3/ul (0.83-4.51); Lymphocyte % 20.7 % (19-41); Mean Corp Hgb Conc 32.7 g/dL (32-36); Mean Corpuscular Hgb 28.4 pg (27.0-32.0); Mean Platelet Vol. 9.3 fl (6.2-12.0); Monocyte# 0.76 X10^3/uL; Monocyte% 9.2 % (0-10); NRBC Flagged by Analyzer 0 % (0-5); Neutrophil # 5.51 X10^3/uL (2.7-7.7); Neutrophil % 66.4 % (47-70); Platelet Count 363 K/mm3 (150-450); RBC Distribution Width CV 13.7 % (11.6-14.6); RBC Distribution Width SD 43.7 fl (35.1-43.9); Red Blood Count 5.31 M/mm3 (4.6-6.2); White Blood Count 8.3 K/mm3 (4.4-11.0)
[2023-12-16 09:48] LABS: Anion Gap 6 (5-15); BUN 15 mg/dL (7-18); BUN/Creat Ratio 16.3 RATIO (10-20); Chloride 101 mmol/L (98-107); Creatinine, Serum 0.92 mg/dL (0.70-1.30); EST Glomerular Filtration Rate 89 mL/min (>60); Est Glom Filt Rate - Afr Amer 107 mL/min (>60); Glucose 103 mg/dL (74-106); Potassium 4.1 mmol/L (3.5-5.1); Sodium Level 135 mmol/L (136-145); Troponin-I HS (w/2H Reflex) < 3 pg/mL (3.0-78.0)
--- NOTE | 2023-12-16 09:53 | RAD_ITS ---
STUDY: X-RAY CHEST REASON FOR EXAM: Male, 63 years old. Chest pain TECHNIQUE: Single AP portable view of the chest. COMPARISON: Comparison is made with prior study of September 03, 2021. FINDINGS: EKG electrodes are seen. Elevation of the right hemidiaphragm. There is no demonstrated pleural abnormality. Normal size heart. Normal mediastinum and isidro. Normal visualized pulmonary arteries. Normal visualized aortic arch and descending thoracic aorta. Normal visualized thoracic spine. Normal visualized ribs, clavicles, and shoulders. There is no demonstrated abnormality of the visualized soft tissue structures of the upper abdomen. RAD/Chest 1 View (Portable) IMPRESSION: Normal x-ray examination of the chest. Electronically Signed: Jose Wesley MD at 10:12 EDT ,
[2023-12-16 11:06] VITALS: BP 137/84; PULSE 58; RESP 14; O2SAT 98
[2023-12-16 11:07] VITALS: BP 128/83; PULSE 59; RESP 16; TEMP 36.4; O2SAT 98
--- NOTE | 2023-12-16 11:08 | ED.VIS.CHEST ---
HPI History of Present Illness Chief Complaint: Chest Pain Narrative Narrative: 63-year-old male with history of A-fib presenting with concern for possible A-fib and heartburn. Patient states he was on vacation and noticed that he was having heartburn on Friday. He states that both Friday and Friday while he was on vacation he drank orange juice in the morning. He states he also ate a spicy [employer] chicken sandwich. He notes no heartburn was mild but was concerned it might be A-fib because he was sitting in bed and looked at his watch his heart rate was 110-120 bpm. He admits that he was a little bit anxious at the time as well. Patient did not have any chest pain or pressure. He states that he called the heart group today and they recommended he come to the ER for evaluation. Patient states he feels well other than a little bit of heartburn. Is not short of breath. Is not lightheaded. He states he has not noted that he is in A-fib and has not been in A-fib in a long time. He does all appear he is on a blood thinner. [facility] Medical History Palpitations RAMSEY (obstructive sleep apnea) Bronchitis Hypersomnia Pure hypercholesterolemia Essential (primary) hypertension Paroxysmal atrial fibrillation New-onset atrial fibrillation with RVR Atrial fibrillation Home Medications ?Medication ?Instructions ?Recorded ?Last Taken ?Type melatonin 3 mg capsule 3 mg PO HS 03/29/19 Unknown History omeprazole 20 mg capsule,delayed 20 mg PO DAILY PRN acid reflux 07/11/22 Unknown History release lorazepam 0.5 mg tablet 0.5 mg PO QHS PRN Anxiety 10/21/22 Unknown History atorvastatin 20 mg tablet 20 mg PO QHS HYPERLIPIDEMIA #90 06/26/23 Unknown Rx tabs benazepril 20 mg tablet 20 mg PO BID #180 tabs 06/26/23 Unknown Rx diltiazem HCl 240 mg 240 mg PO DAILY #90 caps 06/26/23 Unknown Rx capsule,extended release 24 hr flecainide 100 mg tablet 100 mg PO .COMPLEX #60 tabs 06/26/23 Unknown Rx hydrochlorothiazide 12.5 mg tablet 12.5 mg PO DAILY #90 tabs 06/26/23 Unknown Rx metoprolol tartrate 100 mg tablet 100 mg PO BID #180 tabs 06/26/23 Unknown Rx potassium chloride 10 mEq 10 meq PO DAILY #90 tabs 06/26/23 Unknown Rx tablet,extended release (Klor-Con) aspirin 81 mg chewable tablet 81 mg PO DAILY #30 tabs 11/26/23 Unknown Rx fexofenadine 60 mg tablet (Shannan 60 mg PO Q12H 11/26/23 Unknown History Allergy) Allergy/AdvReac Type Severity Reaction Status Date / Time hydrocodone (From Vicodin) AdvReac Other Verified 12/16/23 09:05 Family History Mother Heart disease valve replacement Father Hypertension Kidney disease Heart disease valve problems Surgical History History of cataract extraction Social History household members: spouse housing: house current occupational status: employed current occupation: [employer] [address] [place] [address] pets and animals: Yes pets and animals: dog(s) Smoking Status: Never smoker second hand exposure: No alcohol intake: current alcohol intake frequency: holidays/special occasions only Alcohol type: beer and wine substance use type: does not use caffeine: Yes Type: coffee Number of servings: 1 ROS ROS ED Constitutional Constitutional ED: Denies chills, fever(s) or sweats Eyes Eyes: Denies blurry vision or change in vision ENT ENT ED: Denies ear pain or sore throat Cardiovascular Cardiovascular: Denies chest pain, palpitations or racing heartbeat Respiratory/Chest Respiratory/Chest: Denies cough, dyspnea or sputum Gastrointestinal Gastrointestinal: Reports other Details: Dyspepsia ; Denies abdominal pain, constipation, diarrhea, nausea or vomiting Genitourinary Genitourinary ED: Denies dysuria, hematuria or urinary frequency Musculoskeletal Musculoskeletal: Denies arthralgias, myalgias or neck pain Integumentary Denies abscess, Abrasions or rash Neurologic Neurologic: Denies headache(s), paresthesias or weakness Psychiatric Psychiatric: Denies anxiety, depression, suicidal ideation or suicidal thoughts Endocrine Endocrinology: Denies polydipsia or polyuria EXAM Physical Exam Const Vital Signs: 12/16/23 09:06 12/16/23 09:17 12/16/23 09:40 Temperature 96.1 F L Temperature Source Temporal Pulse Rate 60 Respiratory Rate 14 Respiratory Effort Normal Non-Labored Respiratory Pattern Normal Blood Pressure 158/95 H Blood Pressure Mean 116 Pulse Ox 98 Oxygen Delivery Method Room Air Room Air 12/16/23 11:06 12/16/23 11:07 Temperature 97.5 F L Temperature Source Pulse Rate 58 L 59 L Respiratory Rate 14 16 Respiratory Effort Respiratory Pattern Blood Pressure 137/84 H 128/83 H Blood Pressure Mean 101 98 Pulse Ox 98 98 Oxygen Delivery Method Room Air Positive well nourished General Appearance ED: NAD HEENT normocephalic and atraumatic Eyes PERRL Neck no lymphadenopathy Chest Wall inspection of chest normal Resp normal respiratory effort and clear to auscultation bilaterally Auscultation: Negative for rales, rhonchi or wheezes Cardio regular rate and regular rhythm GI normal to inspection, nondistended, normoactive bowel sounds Neuro oriented x3 and CN's II-XII intact bilaterally Sensorium / Orientation: awake and alert Psych mental status grossly normal Skin no rashes or lesions noted Heart Score History: Slightly/Non-Suspicious ECG: Normal Age: >45 - <65 years Risk Factors: 1 or 2 Risk Factors Troponin: </= Normal Limit Score: 2 MDM MDM MDM Narrative Medical decision making narrative: Patient presenting with dyspepsia. He denies chest pain but was referred to the ER by the heart group out of concern this could be an atypical presentation. Differential includes ACS, pneumonia, PE, costochondritis, dehydration, anemia, electrolyte imbalance, A-fib. Patient well-appearing with normal vital signs. Patient actually has a heart rate around 60. I have low suspicion for PE. CBC was obtained to assess white blood cell count, hemoglobin and platelets. BMP to assess renal function, press, glucose. High-sensitivity troponin and EKG to assess for ischemia/dysrhythmia. Chest x-ray to rule out pneumonia or other acute findings. CBC shows normal white blood cell count at 8.3. Hemoglobin 15.1. Platelets are 363. Renal function electrolytes. Within normal limits. High-sensitivity troponin less than 3. Chest x-ray interpreted by myself shows no acute cardiopulmonary process. Radiologist interprets this and agrees. EKG sinus rhythm at 63 bpm without sign of ischemic change. No STEMI. Patient counseled on findings we discussed GERD symptoms since his heart enzymes are normal and only delta troponin. He states he thinks he only has heartburn because he was on vacation and eating more fast food. He is going to eat more bland diet and see if symptoms improve. I do feel he stable for discharge. Impression: 1. Dyspepsia Lab Data Attestation: I reviewed the patient's lab results. Labs: Laboratory Results - last 24 hr 12/16/23 12/16/23 09:25 09:38 WBC 8.3 RBC 5.31 Hgb 15.1 Hct 46.2 MCV 87.0 MCH 28.4 MCHC 32.7 RDW Std Deviation 43.7 RDW Coeff of Ryan 13.7 Plt Count 363 MPV 9.3 Immature Gran % (Auto) 0.500 Neut % (Auto) 66.4 Lymph % (Auto) 20.7 Dupage % (Auto) 9.2 Eos % (Auto) 2.2 Baso % (Auto) 1.0 Absolute Neuts (auto) 5.5 Absolute Lymphs (auto) 1.71 Nucleated RBC % 0 Sodium 135 L Potassium 4.1 Chloride 101 Carbon Dioxide 28.0 Anion Gap 6 BUN 15 Creatinine 0.92 Estim Creat Clear Calc 103.60 Est GFR (MDRD) Af Amer 107 Est GFR (MDRD) Non-Af 89 BUN/Creatinine Ratio 16.3 Glucose 103 Calcium 10.0 Troponin I High Sens < 3 L Radiography Diagnostic Testing: Clinical Impression(s) from Imaging Studies Chest X-Ray 12/16/23 09:53 IMPRESSION: Normal x-ray examination of the chest. Electronically Signed: Jose Wesley MD at 10:12 EDT , Discharge Plan Triage Chief Complaint: Chest Pain ED Provider: Burton Davis Dx/Rx/DC Orders Instructions: ED Chest Pain, Noncardiac, ED GERD (Adult) Prescriptions: No Action melatonin 3 mg capsule 3 mg PO HS omeprazole 20 mg capsule,delayed release(DR/EC) 20 mg PO DAILY PRN (Reason: acid reflux) Rx Instructions: 2 caps daily fexofenadine [Shannan Allergy] 60 mg tablet 60 mg PO Q12H aspirin 81 mg tablet,chewable 81 mg PO DAILY Qty: 30 3RF lorazepam 0.5 mg tablet 0.5 mg PO QHS PRN (Reason: Anxiety) atorvastatin 20 mg tablet 20 mg PO QHS Qty: 90 3RF benazepril 20 mg tablet 20 mg PO BID Qty: 180 3RF diltiazem HCl 240 mg capsule,extended release 24hr 240 mg PO DAILY Qty: 90 3RF flecainide 100 mg tablet 100 mg PO .COMPLEX Qty: 60 1RF Rx Instructions: 100 mg orally as needed for short burst of atrial fib; hydrochlorothiazide 12.5 mg tablet 12.5 mg PO DAILY Qty: 90 3RF metoprolol tartrate 100 mg tablet 100 mg PO BID Qty: 180 3RF potassium chloride [Klor-Con 10] 10 mEq tablet extended release 10 meq PO DAILY Qty: 90 3RF Primary Care Provider: Alan Li Referrals: Alan Li MD [Primary Care Provider] - Print Language: Bulgarian Disposition Disposition: Home, Self Care
[2023-12-16 11:27] LABS: Reflex Troponin-HS? (from REC) Y
== END 2023-12-16 11:12 | disposition home or self-care (01) ==
PROVIDERS: Emergency Provider Student in an Organized Health Care Education/Training Program; PCP Family Medicine; Visit Provider Student in an Organized Health Care Education/Training Program
DX: R10.13 Epigastric pain (principal); I48.0 Paroxysmal atrial fibrillation; I10 Essential (primary) hypertension; E78.00 Pure hypercholesterolemia, unspecified; Z79.899 Other long term (current) drug therapy; Z79.82 Long term (current) use of aspirin
CPT/HCPCS: 71045; 80048; 84484; 85025; 93005; 99284; A4216

== ENCOUNTER → 2024-10-14 | Outpatient (CLI) | payer BC, SELFPAY ==
[2024-10-14 09:39] LABS: Platelet Count 392 K/mm3 (150-450)
== END | disposition home or self-care (01) ==
LOC: LAB 08:40
PROVIDERS: PCP Family Medicine; Referring Provider Family Medicine; Visit Provider Family Medicine
DX: D75.839 Thrombocytosis, unspecified (principal)
CPT/HCPCS: 36415; 85049

== ENCOUNTER → 2025-05-12 | Outpatient (CLI) | payer BC, SELFPAY ==
--- NOTE | 2025-05-12 13:53 | ECHOD_ITS ---
Reason For Study Reason For Study: ATRIAL FIB-FLUTTER Procedure This was a 2D Doppler, Color Flow transthoracic echocardiogram. Exam performed in department. Left Ventricle Normal-sized left ventricle. Normal LV wall thickness. LV Ejection fraction by Flores's biplane: 74%. Normal diastolic function. No regional wall motion abnormalities noted. Right Ventricle Normal right ventricle. Normal systolic function. RVSP estimated to be 30 mmHg. Atria The left and right atria are normal. Right atrial pressure estimated at 3 mmHg. Intact atrial septum. Mitral Valve Normal mitral valve. No mitral regurgitation. No mitral stenosis. Tricuspid Valve Normal tricuspid valve. Trace tricuspid regurgitation. No tricuspid stenosis. Aortic Valve Aortic valve trileaflet. Calcified noncoronary cusp. No hemodynamically significant aortic stenosis. Mild aortic regurgitation. Pulmonic Valve Normal pulmonic valve. No pulmonic stenosis. Trace pulmonic regurgitation. Great Vessels Normal sized aortic root. Normal ascending aorta. Pericardium/Pleural No pericardial effusion. MMode/2D Measurements & Calculations LVIDd: 5.2 cm IVSd: 1.0 cm LVOT diam: 2.0 cm LVIDs: 3.5 cm LVPWd: 1.0 cm LVOT area: 3.2 cm2 RVDd: 3.4 cm FS: 33.1 % Ao root diam: 3.3 cm LAV(MOD-bp): 46.3 ml LVAd ap4: 31.8 cm2 LAV(MOD-bp) Indexed: 20.5 ml/m2 LVLd ap4: 8.9 cm LAV(MOD-sp2): 51.5 ml EDV(MOD-sp4): 95.6 ml LAV(MOD-sp4): 41.2 ml EDV(sp4-el): 96.3 ml LVAs ap4: 13.5 cm2 LVLs ap4: 6.4 cm ESV(MOD-sp4): 24.9 ml ESV(sp4-el): 24.3 ml EF(MOD-sp4): 73.9 % EF(sp4-el): 74.8 % LVAd ap2: 33.0 cm2 SV(MOD-sp4): 70.6 ml SV(MOD-sp2): 81.7 ml LVLd ap2: 8.4 cm SI(MOD-sp4): 31.3 ml/m2 SI(MOD-sp2): 36.2 ml/m2 EDV(MOD-sp2): 108.6 ml EDV(sp2-el): 109.8 ml LVAs ap2: 14.0 cm2 LVLs ap2: 6.9 cm ESV(MOD-sp2): 26.8 ml ESV(sp2-el): 23.9 ml EF(MOD-sp2): 75.3 % SV(sp4-el): 72.0 ml LA dimension(2D): 3.5 cm LA A4 area: 16.1 cm2 RA A4 area: 12.8 cm2 TAPSE: 2.3 cm Time Measurements MV dec time: 0.25 sec Doppler Measurements & Calculations MV E max mario: 113.3 cm/sec Lat Peak E' Mario: 10.1 cm/sec Med Peak E' Mario: 13.6 cm/sec MV A max mario: 115.1 cm/sec E/E' lat: 11.3 E/E' med: 8.4 MV E/A: 0.98 Ao V2 max: 180.3 cm/sec LV V1 max: 140.4 cm/sec MV dec slope: 447.8 cm/sec2 Ao max P.0 mmHg LV V1 max P.9 mmHg Ao V2 mean: 115.4 cm/sec LV V1 mean P.2 mmHg Ao mean P.4 mmHg LV V1 mean: 95.6 cm/sec Ao V2 VTI: 39.7 cm LV V1 VTI: 33.8 cm AV (velocity ratio): 0.85 AUSTIN(I,D): 2.7 cm2 A[place]IN(V,D): 2.5 cm2 SV(LVOT): 107.4 ml PA V2 max: 92.0 cm/sec TR max mario: 259.6 cm/sec TR max P.9 mmHg ECHO/Echo Complete Interpretation Summary Left ventricular EF by Flores's biplane: 74%. Normal LV systolic function Normal LV diastolic function. Normal left ventricular wall motion Normal right ventricular systolic function Mild aortic regurgitation Recommend repeat echocardiogram in 3 years for routine valvular surveillance. Ordering Physician: Alcides Guerrier Referring Physician: Alan Li Performed By: Tessa Thomas RDCS
--- OUTSIDE RECORDS SUMMARY | 2025-05-12 19:04 | XMS RPT_ITS | CCD ---
Author Organization [facility] [place] [facility] Care Team Providers Care Bilingual Branch Manager Name Role Phone Alan Ward MD Primary Care Provider Diaz Gonzalez Unavailable Juan Zapata Unavailable Dr. Alan Ward Primary Care Provider Dr. Alan Ward Referring Provider Dr. Juan Zapata Attending Provider Dr. Diaz Gonzalez Attending Provider Sung LUBE WORKER, LUBE WORKER-C Preethi Attending Provider Sung REZA, LUBE WORKER-C Preethi Referring Provider Sung REZA, LUBE WORKER-C Preethi Other Provider Dr. Alan Ward Primary Care Provider Dr. Alan Ward Referring Provider Dr. Diaz Gonzalez Attending Provider Alan Ward MD Primary Care Provider Diaz Gonzalez Unavailable Juan Zapata Unavailable Alan Ward MD Primary Care Provider Diaz Gonzalez Unavailable Juan Zapata Unavailable Alan Ward MD Primary Care Provider Diaz Gonzalez Unavailable Juan Zapata Unavailable Dr. Alan Ward Primary Care Provider Dr. Alan Ward Referring Provider Dr. Juan Zapata Attending Provider Fareed LUBE WORKER, LUBE WORKER-C Gerardo Verma Attending Provider Diaz Gonzalez Unavailable Juan Zapata Unavailable Diaz Gonzalez MD Unavailable Alan Ward MD Primary Care Provider Haagen TAXI DRIVER SUPERVISOR.STEAM LOCOMOTIVE FIRER/FIREMAN, Zee Unavailable Suppan TAXI DRIVER SUPERVISOR.STEAM LOCOMOTIVE FIRER/FIREMAN, Jolly A Unavailable Suppan TAXI DRIVER SUPERVISOR.STEAM LOCOMOTIVE FIRER/FIREMAN, Jolly A Unavailable Suppan TAXI DRIVER SUPERVISOR.STEAM LOCOMOTIVE FIRER/FIREMAN, Jolly A Unavailable Chaz MCGEE, Dr. Phillips Primary Care Provider Chaz MCGEE, Dr. Phillips Referring Provider Rosalino LUBE WORKER-CHoda Attending Provider hCaz MCGEE, Dr. Phillips Attending Provider Dr. Alan Ward MD Primary Care Provider Dr. Alan Ward MD Referring Provider Fareed LUBE WORKER-C, Gerardo Verma Attending Provider Carleen Lomeli NP Attending Unavailable [place], Alan Referring Unavailable Chaz, Alan Primary Care Unavailable [place], Alan Attending Unavailable Chaz, Alan Referring Unavailable Chaz, Alan Primary Care Unavailable Roof LUBE WORKER, Gerardo Verma Attending Unavailable Fareed LUBE WORKERGerardo Referring Unavailable [place], Alan Primary Care Unavailable oHda Jerry Attending Unavailable Chaz, Alan Referring Unavailable [place], Alan Primary Care Unavailable Fareed LUBE WORKER, Gerardo Verma Attending Unavailable [place], Alan Referring Unavailable [place], Alan Primary Care Unavailable Roof LUBE WORKER, Gerardo Verma Attending Unavailable Chaz, Alan Referring Unavailable [place], Alan Primary Care Unavailable CHAZ, ALAN Portillo Primary Care Unavailable CHAZ, ALAN Portillo Referring Unavailable CHAZ, ALAN Portillo Primary Care Unavailable SANDEEP IQBAL Referring Unavailable CHAZ, ALAN Portillo Primary Care Unavailable JOSEPH LOERA Attending Unavailable CHAZ, ALAN Portillo Primary Care Unavailable CHAZ, ALAN Portillo Referring Unavailable CHAZ, ALAN Portillo Primary Care Unavailable CHAZ, ALAN Portillo Referring Unavailable CHAZ, ALAN Portillo Primary Care Unavailable CHAZ, ALAN Portillo Referring Unavailable CHAZ, ALAN Portillo Primary Care Unavailable CHAZ, ALAN Portillo Referring Unavailable JOHN ORNELAS Attending Unavailable CHAZ, ALAN Portillo Primary Care Unavailable CHAZ, ALAN Portillo Referring Unavailable CHAZ, ALAN Portillo Primary Care Unavailable CHAZ, ALAN Portillo Attending Unavailable CHAZ, ALAN Portillo Primary Care Unavailable CHAZ, ALAN Portillo Referring Unavailable CHAZ, ALAN Portillo Attending Unavailable CHAZ, ALAN Portillo Primary Care Unavailable JOSEPH LOERA Attending Unavailable CHAZ, ALAN Portillo Primary Care Unavailable CHAZ, ALAN Portillo Referring Unavailable CHAZ, ALAN Portillo Attending Unavailable CHAZ, ALAN Portillo Primary Care Unavailable CHAZ, ALAN Portillo Attending Unavailable CHAZ, ALAN Portillo Primary Care Unavailable CHAZ, ALAN Portillo Primary Care Unavailable CHAZ, ALAN Portillo Referring Unavailable ARMAND MCFADDEN Attending Unavailable CHAZ, ALAN Portillo Primary Care Unavailable CHAZ, ALAN Portillo Attending Unavailable CHAZ, ALAN Portillo Primary Care Unavailable CHAZ, ALAN Portillo Attending Unavailable CHAZ, ALAN Portillo Primary Care Unavailable CHAZ, ALAN Portillo Attending Unavailable CHAZ, ALAN Portillo Primary Care Unavailable CHAZ, ALAN Portillo Attending Unavailable CHAZ, ALAN Portillo Primary Care Unavailable CHAZ, ALAN Portillo Referring Unavailable CHAZ, ALAN Portillo Primary Care Unavailable CHAZ, ALAN Portillo Referring Unavailable JOHN ORNELAS Attending Unavailable CHAZ, ALAN Portillo Primary Care Unavailable CHAZ, ALAN Portillo Referring Unavailable CHAZ, ALAN Portillo Primary Care Unavailable ARMAND MCFADDEN Referring Unavailable JOHN ORNELAS Attending Unavailable CHAZ, ALAN Portillo Primary Care Unavailable CHAZ, ALAN Portillo Primary Care Unavailable CHAZ, ALAN Portillo Referring Unavailable SANDEEP IQBAL Attending Unavailable CHAZ, ALAN Portillo Primary Care Unavailable SANDEEP IQBAL Referring Unavailable CHAZ, ALAN Portillo Primary Care Unavailable CHAZ, ALAN Portillo Primary Care Unavailable CHAZ, ALAN Portillo Referring Unavailable Allergies Allergy Classification Reported Allergen(s) Allergy Type Date of Onset Reaction(s) Facility Acetaminophen / HYDROcodone (1 source) Acetaminophen / HYDROcodone Drug Allergy 7 Mental Status Change [facility] Work Phone: (20 sources) Acetaminophen / HYDROcodone; Translations: [HYDROCODONE-ACET AMINOPHEN] Drug Allergy 7 Mental Status Change [facility] Work Phone: (5 sources) HYDROcodone Drug Allergy 2 Other [facility] Comment on above: "I DON'T LIKE HOW IT MAKES ME FEEL" (1 source) HYDROcodone Drug Allergy 5 [facility] Repository Medications Current Medications Medication Drug Class(es) Dates Sig (Normalized) Sig (Original) amoxicillin 875 mg oral tablet (4 sources) Penicillin-class Antibacterial Start: 09-17-2024 End: 09-27-2024 take 1 tablet by mouth twice daily amoxicillin (AMOXIL) 875 mg tablet Indications: Acute non-recurrent sinusitis, unspecified location Take 1 tablet by mouth two times a day for 10 days. 20 tablet 09/17/2024 09/27/2024 Active Start: 06-07-2024 End: 06-17-2024 take 1 tablet by mouth twice daily amoxicillin (AMOXIL) 875 mg tablet Indications: Sinusitis, unspecified chronicity, unspecified location Take 1 tablet by mouth two times a day for 10 days. 20 tablet 06/07/2024 06/17/2024 Active amoxicillin 875 mg / clavulanate 125 mg oral tablet (1 source) Penicillin-class Antibacterial Start: 02-11-2025 End: 02-16-2025 take 1 tablet by mouth twice daily amoxicillin-clavulanate potassium (AUGMENTIN) 875-125 mg per tablet Indications: Bacterial sinusitis Take 1 tablet by mouth two times a day for 5 days. 10 tablet 02/11/2025 02/16/2025 Active aspirin 81 mg chewable tablet (20 sources) Platelet Aggregation Inhibitor, Nonsteroidal Anti-inflammatory Drug Start: 11-26-2023 End: 07-05-2024 take 1 tablet by mouth once daily Aspirin 81 mg tablet,chewable Active 81 mg PO DAILY 90 3 July 05, 2024 3:20pm Start: 04-13-2018 End: 07-20-2018 take 1 tablet by mouth once daily Aspirin 325 MG tablet Discontinued 325 mg PO DAILY@0800 0 April 13, 2018 12:00am July 20, 2018 10:59am take 1 tablet by berta th once daily aspirin, enteric coated (ECOTRIN LOW STRENGTH) 81 mg EC tablet Take 81 mg by mouth once daily. Active atorvastatin 20 mg oral tablet (20 sources) HMG-CoA Reductase Inhibitor Start: 07-05-2014 End: 07-05-2024 take 1 tablet by mouth once daily atorvastatin (LIPITOR) 20 mg tablet Indications: Hyperlipidemia, unspecified hyperlipidemia type Take 1 tablet by mouth once daily. 90 tablet 3 06/25/2023 Active Comment on above: Take 1 tablet by berta th once daily. benazepril hydrochloride 20 mg oral tablet (20 sources) Angiotensin Converting Enzyme Inhibitor Start: 09-13-2022 End: 08-30-2025 take 1 tablet by mouth twice daily benazepril (LOTENSIN) 20 mg tablet Take 1 tablet by mouth two times a day. 180 tablet 3 08/30/2024 08/30/2025 Active Start: 09-15-2018 End: 10-06-2022 take 1 tablet by mouth once daily Benazepril 20 mg tablet Discontinued 20 mg PO DAILY 90 3 May 15, 2020 11:55am September 13, 2022 3:26pm Comment on above: Take 1 tablet by berta th once daily. Take 1 tablet by berta th two times a day. benzonatate 100 mg oral capsule (1 source) Non-narcotic Antitussive Start: End: take 1 capsule by mouth every eight hours as needed benzonatate (TESSALON PERLE) 100 mg capsule Take 1 capsule by mouth three times a day as needed for cough for up to 7 days. 21 capsule 0 11/30/2023 12/07/2023 Active calcium carbonate 500 mg chewable tablet (20 sources) Start: take 1 tablet by mouth once as needed Calcium Carbonate (Tums) 200 mg calcium (500 mg) tablet,chewable Active 200 mg PO ONCE as needed May 24, 2024 1:00am calcium carbonat e (TUMS ORAL) Take 2 tablets by mouth as needed. Active calcium carbonat e (TUMS ORAL) Take 2 tablets by mouth as needed. 0 Active Comment on above: Take 2 tablets by mo [facility] as needed. 24 hr dilTIAZem hydrochloride 240 mg extended release oral capsule (20 sources) Calcium Channel Kinza Start: 12-17-2021 End: 04-22-2022 take 240 mg by mouth once daily Diltiazem Hcl Discontinued 240 MG PO DAILY December 17, 2021 8:58am April 22, 2022 8:41am Start: 09-03-2021 End: 04-22-2022 take 1 capsule by mouth once daily Diltiazem Hcl 360 mg capsule,extended release 24hr Discontinued 240 mg PO DAILY December 17, 2021 8:58am April 22, 2022 8:41am Start: 07-28-2013 End: 07-05-2024 take 1 capsule by mouth once daily dilTIAZem CD (CARDIZEM CD, CARTIA XT) 240 mg 24 hr capsule Take 1 capsule by mouth once daily. 90 capsule 1 06/11/2024 Active Comment on above: Take 1 capsule by [facility] once daily. enteric contrast (will be provided with radiology test) (1 source) Start: 2 End: 2 enteric contrast (will be provided with radiology test) Indications: Abdominal discomfort in right lower quadrant , Abdominal discomfort in left lower quadrant For CT ABD/PEL W IVCON Routine order Administer, As Directed One Time Only, via Oral, Rectal, both Oral and Rectal, Enteric Tube, Stoma or Indwelling Catheter, Enteric Contrast as designated per enteric contrast guidelines 1 Each 0 12/03/2021 12/04/2021 Active Comment on above: For CT ABD/PEL W IVC ON Routine order Administer, As Directed One Time Only, via Oral, Rectal, both Oral and Rectal, Enteric Tube, Stoma or Indwelling Catheter, Enteric Contrast as designated per enteric contrast guidelines flecainide acetate 100 mg oral tablet (20 sources) Antiarrhythmic Start: 4 End: 5 take 1 tablet by mouth once as needed Flecainide 100 mg tablet Discontinued 100 mg PO ONCE as needed for atrial fibrillation 7 0 May 24, 2024 10:44am July 05, 2024 3:22pm 100 mg orally as needed for short burst of atrial fib; Start: 09-09-2022 End: 05-24-2024 flecainide (TAMBOCOR) 100 mg tablet Take 100 mg by mouth as needed. 05/24/2024 Active Comment on above: Take 100 mg by mouth q 12 HR. hydroCHLOROthiazide 12.5 mg oral tablet (20 sources) Thiazide Diuretic Start: 021 take 1 tablet by mouth twice daily hydroCHLOROthiazide (HYDRODIURIL, ESIDRIX) 12.5 mg tablet Take 12.5 mg by mouth twice daily. 02/08/2021 Active Start: 09-15-2018 End: 07-05-2024 take 1 tablet by mouth once daily Hydrochlorothiazide 12.5 mg tablet Discontinued 12.5 mg PO DAILY 90 3 July 05, 2024 2:22pm July 05, 2024 3:22pm Comment on above: Take 12.5 mg by mout h once daily. Take 12.5 mg by mout h twice daily. iv contrast (will be provided with radiology test) (2 sources) Start: 12-23-2024 End: 12-24-2024 iv contrast (will be provided with radiology test) Indications: Posterior tibial tendon dysfunction , Soft tissue mass MRI ankle LT Inject, intravenously, once for 1 dose. No IV access, insert saline lock prior to the beginning of sedation, infusion, injection of imaging exam. Discontinue saline lock post exam. If Pt. has a central line or IVAD, may access for administration according to line specific nursing protocol. Once exam is complete flush line and de-access according to line specific nursing protocol in the MR contrast administration guidelines link. 1 each 12/23/2024 12/24/2024 Active Start: 12-03-2021 End: 12-04-2021 iv contrast (will be provide d with radiology test) Indications: Abdominal discomfort in right lower quadrant , Abdominal discomfort in left lower quadrant CT ABD/PEL -Inject, intravenously, once for 1 dose.No IV access, insert saline lock prior to the beginning of sedation, infusion, injection of imaging exam. Discontinue saline lock post exam. If Pt. has a central line or IVAD, may access for administration according to line specific nursing protocol. Once exam is complete flush line and de-access according to line specific nursing protocol in the CT contrast administration guidelines link. 1 Each 0 12/03/2021 12/04/2021 Active Comment on above: CT ABD/PEL -Inject, intravenously, once for 1 dose.No IV access, insert saline lock prior to the beginning of sedation, infusion, injection of imaging exam. Discontinue saline lock post exam. If Pt. has a central line or IVAD, may access for administration according to line specific nursing protocol. Once exam is complete flush line and de-access according to line specific nursing protocol in the CT contrast administration guidelines link. loratadine 10 mg oral tablet (20 sources) Start: take 1 tablet by mouth once daily Loratadine (Claritin) 10 mg tablet Active 10 mg PO daily January 11, 2025 12:00am Start: 04-29-2023 End: 11-26-2023 take 1 tablet by mouth once daily Loratadine (Claritin) 10 mg tablet Discontinued 10 mg PO DAILY April 29, 2023 1:00am November 26, 2023 1:04pm Start: 04-11-2018 End: 10-21-2022 take 1 tablet by mouth once daily as needed Loratadine 10 MG tablet Discontinued 10 mg PO DAILY as needed for Allergies April 11, 2018 12:00am October 21, 2022 4:01pm Comment on above: Take 10 mg by mouth once daily. Loratadine / Pseudoephedrine (19 sources) alpha-Adrenergic Agonist take 1 tablet by mouth once daily loratadine/pseudoe phedrine (CLARITIN-D 24 HOUR ORAL) Take 1 tablet by mouth once daily. Active LORazepam 0.5 mg oral tablet (20 sources) Benzodiazepine Start: 01-19-20 End: 04-18-20 take 1 tablet by mouth three times daily as needed for anxiety LORazepam (ATIVAN) 0.5 mg Indications: Generalized anxiety disorder Take 1 tablet by mouth three times a day as needed (anxiety) for up to 90 days. 90 tablet 1 01/18/2025 04/18/2025 Active Start: 07-28-2013 End: 11-28-2024 take 1 tablet by mouth three times daily as needed for anxiety Lorazepam 0.5 mg tablet Discontinued 0.5 mg PO THREE TIMES A DAY as needed for Anxiety September 18, 2020 8:41am October 21, 2022 4:04pm Comment on above: Take 1 tablet by berta th three times daily as needed (anxiety) for up to 90 days. Take 1 tablet by berta th three times a day as needed (anxiety) for up to 90 days. melatonin 3 mg oral capsule (20 sources) Start: 03-29-2019 take 1 capsule by mouth at bedtime Melatonin 3 mg capsule Active 3 mg PO BEDTIME March 29, 2019 12:00am Comment on above: Take 3 mg by mouth a t bedtime as needed. metoprolol tartrate 100 mg oral tablet (20 sources) beta-Adrenergic Kinza Start: 04-20-2018 End: 07-05-2024 take 1 tablet by mouth twice daily metoprolol tartrate, short acting, (LOPRESSOR) 100 mg tablet Take 100 mg by mouth twice daily. 04/20/2018 Active Start: 04-13-2018 End: 04-20-2018 Metoprolol Tartrate 50 MG ta blet Discontinued 75 mg PO TWICE A DAY 90 0 April 13, 2018 12:00am April 20, 2018 5:43pm Start: 04-13-2018 End: 04-20-2018 take 75 mg by mouth twice daily Metoprolol Tartrate Discontinued 75 MG PO TWICE A DAY 90 April 13, 2018 12:00am April 20, 2018 5:43pm Comment on above: Take 100 mg by mouth twice daily. molnupiravir 200 mg capsule (1 source) Start: 02-21-20 End: 02-26-20 take 4 capsules by mouth twice daily molnupiravir 200 mg capsule Indications: COVID Take 4 capsules by mouth twice daily for 5 days. 40 capsule 0 02/20/2023 02/25/2023 Active Comment on above: Take 4 capsules by m outh twice daily for 5 days. oseltamivir 75 mg oral capsule (3 sources) Neuraminidase Inhibitor Start: 08-02-19 End: 08-07-19 take 1 capsule by mouth twice daily oseltamivir (TAMIFLU) 75 mg capsule Indications: Flu Take 1 capsule by mouth two times a day for 5 days. 10 capsule 08/02/2024 08/07/2024 Active potassium chloride 10 meq extended release oral tablet (20 sources) Start: 05-24-20 End: 07-05-19 take 1 tablet by mouth once daily Potassium Chloride 10 mEq tablet,ER particles/crystals Discontinued 10 meq PO daily June 04, 2024 12:01pm July 05, 2024 3:24pm Start: 03-30-2019 End: 05-24-2024 take 1 tablet by mouth once daily potassium chloride (K-TAB) 10 mEq tablet Take 10 mEq by mouth once daily. 06/20/2019 Active Comment on above: Take 10 mEq by mouth once daily. predniSONE 20 mg oral tablet (6 sources) Start: 08-16-2024 End: 08-21-2024 take 1 tablet by mouth once daily predniSONE (DELTASONE) 20 mg tablet Indications: Influenza A Take 1 tablet by mouth once daily for 5 days. 5 tablet 08/16/2024 08/21/2024 Active Start: 06-07-2024 End: 06-12-2024 take 1 tablet by mouth once daily at mealtime predniSONE (DELTASONE) 20 mg tablet Indications: Acute shoulder pain, unspecified laterality Take 1 tablet by mouth once daily for 5 days. Take daily with food. 5 tablet 06/07/2024 06/12/2024 Active Start: 04-19-2023 End: 04-24-2023 take 1 tablet by mouth once daily at mealtime predniSONE (DELTASONE) 20 mg tablet Indications: Left inguinal pain Take 1 tablet by mouth once daily for 5 days. Take daily with food. 5 tablet 0 04/19/2023 04/24/2023 Active Comment on above: Take 1 tablet by berta once daily for 5 days. Take daily with food. tamsulosin hydrochloride 0.4 mg oral capsule (8 sources) alpha-Adrenergic Kinza Start: 12-26-19 End: 03-29-20 take 1 capsule by mouth once daily at bedtime tamsulosin (FLOMAX) 0.4 mg Take 1 capsule by mouth daily at bedtime. 30 capsule 3 12/25/2021 03/29/2022 Discontinued (Other) Comment on above: Take 1 capsule by [facility] daily at bedtime. triamcinolone acetonide 0.055 mg/actuat metered dose nasal spray (20 sources) Corticosteroid Start: 05-24-20 24 Triamcinolone Acetonide (Nasacort) 55 mcg aerosol,spray Active 2 NMA INTRANASAL daily as needed May 24, 2024 1:00am administer into each nostril triamcinolone ac etonide (NASACORT NASAL) Use in the nose. Active triamcinolone ac etonide (NASACORT NASAL) Use in the nose. 0 Active Comment on above: Use in the nose. Completed/Discontinued Medications Medication Drug Class(es) Dates Sig (Normalized) Sig (Original) [id number] 200 actuat albuterol 0.09 mg/actuat metered dose inhaler (14 sources) beta2-Adrenergic Agonist Start: 08-25-2021 End: 01-14-2022 take 2 puff(s) by inhalation every six hours as needed albuterol HFA (PROAIR HFA) 90 mcg/actuation inhaler Inhale 2 Puffs as instructed every 6 hours as needed. 1 Inhaler 0 08/25/2021 01/14/2022 Discontinued Comment on above: Inhale 2 Puffs as in structed every 6 hours as needed. apixaban 5 mg oral tablet (20 sources) Factor Xa Inhibitor Start: 07-20-2018 End: 02-22-2020 take 1 tablet by mouth twice daily Apixaban (Eliquis) 5 mg tablet Discontinued 5 mg PO TWICE A DAY 180 3 December 23, 2019 10:47am February 22, 2020 1:30pm benazepril hydrochloride 20 mg / hydroCHLOROthiazide 12.5 mg oral tablet (10 sources) Thiazide Diuretic, Angiotensin Converting Enzyme Inhibitor Start: 05-20-2018 End: 09-15-2018 Benazepril-Hydroc hlorothiazide 20-12.5 mg tablet Discontinued 1 {tbl} PO DAILY May 20, 2018 1:00am September 15, 2018 3:28pm Start: 05-20-2018 End: 09-15-2018 take 1 tablet by mouth once daily Benazepril-Hydrochlorothiazide Discontin ued 1 TABLET PO DAILY May 20, 2018 1:00am September 15, 2018 3:28pm Start: 07-05-2014 End: 05-20-2018 Benazepril-Hydrochlorothiazi de 1 EACH tablet Discontinued 1 NMA PO DAILY July 05, 2014 1:00am May 20, 2018 11:55am BLOOD PRESSURE Start: 07-05-2014 End: 05-20-2018 Benazepril-Hydrochlorothiazi de Discontinued 1 EACH PO DAILY July 05, 2014 1:00am May 20, 2018 11:55am busPIRone hydrochloride 5 mg oral tablet (11 sources) Start: 10-02-2022 End: 10-02-2023 take 1 tablet by mouth twice daily Buspirone 5 mg tablet Discontinued 5 mg PO TWICE A DAY October 21, 2022 12:00am April 29, 2023 4:28pm Comment on above: Take 1 tablet by berta th twice daily. celecoxib 200 mg oral capsule (3 sources) Nonsteroidal Anti-inflammatory Drug Start: 05-03-2024 End: 06-29-2024 take 1 capsule by mouth once daily Celecoxib 200 mg capsule Discontinued 200 mg PO daily May 24, 2024 1:00am June 29, 2024 11:24am diazePAM 5 mg oral tablet (3 sources) Benzodiazepine Start: 08-07-2022 End: 10-21-2022 take 1 tablet by mouth three times daily as needed Diazepam (Valium) 5 mg tablet Discontinued 5 mg PO THREE TIMES A DAY as needed for vertigo 15 5 0 August 07, 2022 1:00am October 21, 2022 4:03pm Peripheral vertigo Other peripheral vertigo, unspecified ear famotidine 20 mg oral tablet (10 sources) Histamine-2 Receptor Antagonist Start: 05-16-2020 End: 09-18-2020 take 1 tablet by mouth once daily Famotidine 20 mg tablet Discontinued 20 mg PO DAILY May 16, 2020 1:00am September 18, 2020 8:40am Start: 09-27-2019 End: 03-09-2020 take 1 tablet by mouth once daily Famotidine 20 mg tablet Discontinued 20 mg PO DAILY September 27, 2019 12:00am March 09, 2020 11:37am fexofenadine hydrochloride 60 mg oral tablet (20 sources) Histamine-1 Receptor Antagonist Start: 05-24-2024 End: 06-29-2024 take 1 tablet by mouth once daily Fexofenadine (Shannan Allergy) 60 mg tablet Discontinued 60 mg PO daily May 24, 2024 10:08am June 29, 2024 11:25am Start: 05-24-2024 End: 01-11-2025 take 3 tablets by mouth every twenty-four hours Fexofenadine (Shannan Allergy) 60 mg tablet Discontinued 180 mg PO Q24H May 24, 2024 1:00am January 11, 2025 8:10am Start: 11-26-2023 End: 05-24-2024 take 1 tablet by mouth every twelve hours Fexofenadine (Shannan Allergy) 60 mg tablet Discontinued 60 mg PO Q12H November 26, 2023 12:00am May 24, 2024 10:14am Start: 10-21-2022 End: 02-08-2025 take 1 tablet by mouth once daily Fexofenadine (Allegr a Allergy) 180 mg tablet Discontinued 180 mg PO DAILY October 21, 2022 12:00am April 29, 2023 4:28pm Comment on above: Take 180 mg by mouth once daily. fluticasone propionate 0.05 mg/actuat metered dose nasal spray (5 sources) Corticosteroid Start: take 2 spray(s) by mouth once daily fluticasone (FLONASE) 50 mcg/actuation nasal spray Use 2 Sprays in each nostril once daily. Rinse mouth after use. 1 Each 0 08/25/2021 Active Comment on above: Use 2 Sprays in each nostril once daily. Rinse mouth after use. hydrocortisone 25 mg/ml topical cream (13 sources) Corticosteroid Start: End: hydrocortisone (ANUSOL-HC) 2.5 % rectal cream Indications: External hemorrhoid by RECTAL route twice daily. 28 g 1 09/26/2021 01/14/2022 Discontinued Comment on above: by RECTAL route twic e daily. montelukast 10 mg oral tablet (4 sources) Leukotriene Receptor Antagonist Start: End: take 1 tablet by mouth once daily at bedtime montelukast (SINGULAIR) 10 mg tablet Indications: Allergy, subsequent encounter Take 1 tablet by mouth daily at bedtime. 90 tablet 3 09/05/2023 01/14/2024 Discontinued (Other) Comment on above: Take 1 tablet by berta th daily at bedtime. naproxen 500 mg oral tablet (10 sources) Nonsteroidal Anti-inflammatory Drug Start: End: take 1 tablet by mouth twice daily as needed for pain Naproxen 500 MG tablet Discontinued 500 mg PO TWICE DAILY NEEDED as needed for Pain April 11, 2018 1:05pm May 07, 2018 10:38am nystatin [id number] unt/ml oral suspension (20 sources) Polyene Antifungal Start: 025 End: nystatin (MYCOSTATIN) 100,000 unit/mL suspension Take 5 mL by mouth four times daily. 1tsp swish in mouth for several minutes, then swallow (or expectorate) 4 times daily until gone. 200 mL 08/27/2024 02/08/2025 Discontinued omeprazole 20 mg delayed release oral capsule (20 sources) Proton Pump Inhibitor Start: 023 End: take 2 capsules by mouth once daily as needed Omeprazole 20 mg capsule,delayed release(DR/EC) Discontinued 20 mg PO DAILY as needed for acid reflux July 11, 2022 4:53pm May 24, 2024 10:11am 2 caps daily Start: 05-29-2022 End: 07-11-2022 take 1 capsule by mouth once daily Omeprazole 20 mg capsule,delayed release(DR/EC) Discontinued 20 mg PO DAILY May 29, 2022 1:00am July 11, 2022 4:53pm Start: 04-02-2022 End: 05-01-2022 take 2 capsules by mouth once daily omeprazole (PRILOSEC) 20 mg capsule Take 2 capsules by mouth once daily. 60 capsule 0 05/01/2022 Active Comment on above: Take 2 capsules by m outh once daily. ondansetron 4 mg disintegrating oral tablet (7 sources) Serotonin-3 Receptor Antagonist Start: 08-07-19 End: 11-26-19 take 1 tablet by mouth three times daily as needed for nausea and vomiting Ondansetron 4 mg tablet,disintegratin g Discontinued 4 mg PO THREE TIMES A DAY as needed for nausea and vomiting 21 August 07, 2022 7:22am November 26, 2023 1:04pm Start: 12-17-2021 End: 05-29-2022 take 1 tablet by mouth every eight hours as needed for nausea Ondansetron 4 MG tablet Discontinued 4 mg PO EVERY 8 HOURS NEEDED as needed for Nausea 10 December 17, 2021 12:00am May 29, 2022 7:44am polyethylene glycol 3350 14736 mg powder for oral solution (9 sources) Osmotic Laxative Start: 11-09-2021 End: 02-07-2022 polyethylene glycol 3350 (MIRALAX) 17 gram/dose powder Take 17 g by mouth once daily. 510 g 2 11/09/2021 01/14/2022 Discontinued Comment on above: Take 17 g by mouth o nce daily. polyethylene glycol 3350 [id number] mg / potassium chloride 2970 mg / sodium bicarbonate 6740 mg / sodium chloride 5860 mg / sodium sulfate 42415 mg powder for oral solution (14 sources) Osmotic Laxative Start: 01-17-2022 End: 10-02-2022 peg 3350-Electrolytes (GOLYTELY) 236-22.74-6.74 -5.86 gram suspension Indications: Abdominal discomfort , Unilateral inguinal hernia without obstruction or gangrene, recurrence not specified Refer to printed prep instructions from your provider. 4000 mL 0 01/17/2022 10/02/2022 Discontinued Comment on above: Refer to printed pre p instructions from your provider. propranolol hydrochloride 10 mg oral tablet (5 sources) beta-Adrenergic Kinza Start: 07-28-2013 End: 04-13-2018 Propranolol 10 MG tablet Discontinued 60 mg PO DAILY July 28, 2013 1:00am April 13, 2018 11:52am BLOOD PRESSURE Start: 07-28-2013 End: 04-13-2018 take 60 mg by mouth once daily Propranolol Discontinue d 60 MG PO DAILY July 28, 2013 1:00am April 13, 2018 11:52am raNITIdine 150 mg oral tablet (5 sources) Histamine-2 Receptor Antagonist Start: 05-20-2018 End: 09-27-2019 take 1 tablet by mouth twice daily Ranitidine Hcl 150 mg tablet Discontinued 150 mg PO TWICE A DAY May 20, 2018 1:00am September 27, 2019 4:00pm rivaroxaban 20 mg oral tablet (20 sources) Factor Xa Inhibitor Start: 02-22-2020 End: 01-14-2024 take 1 tablet by mouth once daily at dinner Rivaroxaban (Xarelto) 20 mg tablet Discontinued 20 mg PO DAILY June 26, 2023 3:57pm November 26, 2023 1:25pm must administer with evening meal Comment on above: Take 1 tablet by berta th once daily. traMADol hydrochloride 50 mg oral tablet (5 sources) Opioid Agonist Start: 07-30-2018 End: 09-15-2018 take 1 tablet by mouth every six hours as needed for pain Tramadol 50 mg tablet Discontinued 50 mg PO EVERY 6 HOURS as needed for pain July 30, 2018 1:00am September 15, 2018 3:29pm Problems Active Problems Problem Classification Problem Date Documented Da te Episodic/Chronic Abdominal hernia (2 sources) Inguinal hernia; Translations: [Unilateral inguinal hernia, without obstruction or gangrene, not specified as recurrent] Episodic Abdominal pain (16 sources) Lower abdominal pain; Translations: [Lower abdominal pain, unspecified] Episodic Anxiety disorders (20 sources) Generalized anxiety disorder; Translations: [Generalized anxiety disorder] Onset: 06-18-2021 06-18-2021 Chronic Bacterial infection; unspecified site (1 source) Other specified bacterial agents as the cause of diseases classified elsewhere; Translations: [Bacterial sinusitis] Onset: 04-04-2025 Episodic Calculus of urinary tract (1 source) Kidney stone; Translations: [Calculus of kidney] Episodic Cardiac dysrhythmias (20 sources) Paroxysmal atrial fibrillation; Translations: [Paroxysmal atrial fibrillation] Onset: 09-25-2018 09-25-2018 Chronic Diseases of mouth; excluding dental (1 source) Glossodynia; Translations: [Glossodynia] 08-24-2024 Episodic Disorders of lipid metabolism (20 sources) Mixed hyperlipidemia; Translations: [Mixed hyperlipidemia] Onset: 05-10-2008 Resolved: 03-04-2023 03-28-2021 Chronic Essential hypertension (20 sources) Essential hypertension; Translations: [Essential (primary) hypertension] Onset: 06-19-2015 06-19-2015 Chronic Gastrointestinal hemorrhage (9 sources) Rectal hemorrhage; Translations: [Hemorrhage of anus and rectum] Episodic Hemorrhoids (1 source) External hemorrhoids; Translations: [Residual hemorrhoidal skin tags] Episodic Hyperplasia of prostate (20 sources) Benign prostatic hyperplasia; Translations: [Benign prostatic hyperplasia without lower urinary tract symptoms] Onset: 07-18-2016 07-18-2016 Chronic Immunizations and screening for infectious disease (20 sources) Viral screening status; Translations: [Encounter for screening for other viral diseases] Onset: 09-26-2021 Resolved: 09-26-2021 09-26-2021 Episodic Influenza (2 sources) Influenza; Translations: [Influenza due to unidentified influenza virus with other respiratory manifestations] 08-02-2024 Episodic Neoplasms of unspecified nature or uncertain behavior (1 source) Thrombocytosis; Translations: [Thrombocytosis] 09-06-2024 Episodic Nonspecific chest pain (7 sources) Chest pain; Translations: [Chest pain, unspecified] Episodic Other connective tissue disease (10 sources) Tendonitis of left shoulder; Translations: [Other enthesopathies, not elsewhere classified] 04-09-2024 Episodic Other connective tissue disease (4 sources) Pain in left foot; Translations: [Pain in left foot] 10-18-2024 Episodic Other connective tissue disease (6 sources) Plantar fasciitis; Translations: [Plantar fascial fibromatosis] 10-18-2024 Episodic Other connective tissue disease (4 sources) Dysfunction of posterior tibial tendon; Translations: [Posterior tibial tendinitis, unspecified leg] 12-23-2024 Episodic Other diseases of kidney and ureters (1 source) Dilatation of ureter; Translations: [Megaloureter] Episodic Other diseases of kidney and ureters (1 source) Hydroureter; Translations: [Hydroureter] 04-19-2023 Episodic Other injuries and conditions due to external causes (1 source) Allergic condition; Translations: [Allergy, unspecified, subsequent encounter] 09-05-2023 Episodic Other liver diseases (3 sources) Elevated liver enzymes level; Translations: [Abnormal levels of other serum enzymes] Episodic Other nervous system disorders (1 source) Other chronic pain; Translations: [Chronic pain of both shoulders] Onset: 09-13-2024 Chronic Other nervous system disorders (1 source) Tremor; Translations: [Tremor, unspecified] 01-14-2024 Episodic Other non-traumatic joint disorders (1 source) Shoulder pain; Translations: [Pain in unspecified shoulder] 06-07-2024 Episodic Other non-traumatic joint disorders (2 sources) Bilateral chronic pain of upper limbs; Translations: [Pain in right shoulder] 07-09-2024 Episodic Other non-traumatic joint disorders (2 sources) Disorder of shoulder; Translations: [Other specified joint disorders, unspecified shoulder] 09-13-2024 Episodic Other nutritional; endocrine; and metabolic disorders (20 sources) Obese class I; Translations: [Obesity, unspecified] Onset: 05-02-2021 05-02-2021 Chronic Other nutritional; endocrine; and metabolic disorders (5 sources) Body mass index 30+ - obesity; Translations: [Body mass index (BMI) 31.0-31.9, adult] 02-09-2019 Chronic Other nutritional; endocrine; and metabolic disorders (1 source) Body mass index (BMI) 32.0-32.9, adult; Translations: [Class 1 obesity with body mass index (BMI) of 32.0 to 32.9 in adult, unspecified obesity type, unspecified whether serious comorbidity present] Onset: 03-22-2025 Chronic Other screening for suspected conditions (not mental disorders or infectious disease) (1 source) Encounter for screening for malignant neoplasm of prostate; Translations: [Screening for prostate cancer] Onset: 03-22-2025 Episodic Other skin disorders (4 sources) Mass of soft tissue; Translations: [Other specified soft tissue disorders] 12-23-2024 Episodic Other upper respiratory disease (1 source) Seasonal allergic rhinitis; Translations: [Other seasonal allergic rhinitis] Chronic Other upper respiratory infections (6 sources) Sinusitis; Translations: [Chronic sinusitis, unspecified] Onset: 06-07-2024 06-07-2024 Chronic Other upper respiratory infections (4 sources) Acute upper respiratory infection; Translations: [Acute upper respiratory infection, unspecified] 08-02-2024 Episodic Otitis media and related conditions (2 sources) Dysfunction of bilateral eustachian tubes; Translations: [Unspecified Eustachian tube disorder, bilateral] Onset: 02-08-2025 02-08-2025 Episodic Residual codes; unclassified (20 sources) Sleep apnea; Translations: [Sleep apnea, unspecified] Onset: 09-09-2008 10-16-2009 Chronic Residual codes; unclassified (6 sources) Obstructive sleep apnea syndrome; Translations: [Obstructive sleep apnea (adult) (pediatric)] 06-05-2020 Chronic Residual codes; unclassified (5 sources) Hypersomnia; Translations: [Hypersomnia, unspecified] 06-05-2020 Chronic Residual codes; unclassified (2 sources) Obstructive sleep apnea (adult) (pediatric); Translations: [Obstructive sleep apnea (adult)(pediatric)] Chronic Residual codes; unclassified (1 source) Sleep apnea, unspecified; Translations: [Unspecified sleep apnea] Onset: 10-16-2009 Chronic Screening and history of mental health and substance abuse codes (1 source) Patient encounter status; Translations: [Encounter for screening for depression] 09-06-2024 Episodic Unclassified (1 source) Bilateral chronic pain of upper limbs 09-13-2024 Unclassified (1 source) Thrombocytosis, unspecified; Translations: [Thrombocytosis, unspecified] Onset: 10-18-2024 Unclassified (1 source) Class 1 obesity with body mass index (BMI) of 32.0 to 32.9 in adult, unspecified obesity type, unspecified whether serious comorbidity present; Translations: [Class 1 obesity with body mass index (BMI) of 32.0 to 32.9 in adult, unspecified obesity type, unspecified whether serious comorbidity present] Onset: 03-22-2025 Viral infection (3 sources) Disease caused by 2019-nCoV; Translations: [COVID-19] Onset: 02-08-2025 02-20-2023 Episodic Past or Other Problems Problem Classification Problem Date Documented Da te Episodic/Chronic Cardiac dysrhythmias (20 sources) Palpitations; Translations: [Palpitations] Onset: 02-25-2012 Resolved: 03-28-2021 09-18-2020 Episodic Conditions associated with dizziness or vertigo (20 sources) Peripheral vertigo; Translations: [Other peripheral vertigo, unspecified ear] Onset: 12-20-2022 08-15-2022 Episodic Diabetes mellitus without complication (20 sources) Hyperglycemia; Translations: [Hyperglycemia, unspecified] Onset: 03-27-2020 Episodic Other aftercare (20 sources) Long-term current use of anticoagulant; Translations: [care home (current) use of anticoagulants] Onset: 05-01-2021 Resolved: 03-08-2024 05-01-2021 Episodic Other connective tissue disease (20 sources) Tendinitis of shoulder region; Translations: [Other enthesopathies, not elsewhere classified] Onset: 03-31-2024 03-08-2024 Episodic Other connective tissue disease (20 sources) Plantar fasciitis of left foot; Translations: [Plantar fascial fibromatosis] Onset: 10-25-2024 10-25-2024 Episodic Other connective tissue disease (1 source) Posterior tibial tendinitis, unspecified leg; Translations: [Posterior tibial tendon dysfunction] Onset: 01-14-2025 Episodic Other connective tissue disease (1 source) Other specified soft tissue disorders; Translations: [Soft tissue mass] Onset: 01-14-2025 Episodic Other connective tissue disease (2 sources) Pain in left foot; Translations: [Foot pain, left] Onset: 12-23-2024 Episodic Other connective tissue disease (2 sources) Plantar fascial fibromatosis; Translations: [Plantar fasciitis] Onset: 10-25-2024 Episodic Other connective tissue disease (2 sources) Other enthesopathies, not elsewhere classified; Translations: [Tendinitis of left shoulder] Onset: 03-31-2024 Episodic Other gastrointestinal disorders (20 sources) Diarrhea; Translations: [Diarrhea, unspecified] Onset: 03-29-2022 Resolved: 10-21-2022 03-29-2022 Episodic Other male genital disorders (20 sources) Cyst of epididymis; Translations: [Cyst of epididymis] Onset: 07-18-2016 Resolved: 10-21-2022 07-18-2016 Episodic Other non-traumatic joint disorders (20 sources) Pain in lower limb; Translations: [Pain in unspecified knee] Onset: 02-20-2010 Resolved: 10-29-2012 10-29-2012 Episodic Other non-traumatic joint disorders (20 sources) Shoulder joint pain; Translations: [Pain in unspecified shoulder] Onset: 02-20-2010 Resolved: 10-29-2012 10-29-2012 Episodic Other non-traumatic joint disorders (1 source) Pain in right shoulder; Translations: [Chronic pain of both shoulders] Onset: 09-13-2024 Episodic Other non-traumatic joint disorders (1 source) Pain in left shoulder; Translations: [Chronic pain of both shoulders] Onset: 09-13-2024 Episodic Other non-traumatic joint disorders (1 source) Pain in unspecified shoulder; Translations: [Acute shoulder pain, unspecified laterality] Onset: 06-07-2024 Episodic Residual codes; unclassified (20 sources) Other specified personal risk factors, not elsewhere classified; Translations: [Other specified personal history presenting hazards to health] Onset: 05-01-2021 Resolved: 10-21-2022 05-01-2021 Episodic Spondylosis; intervertebral disc disorders; other back problems (20 sources) Neck pain; Translations: [Cervicalgia] Onset: 08-21-2005 Resolved: 09-04-2016 10-29-2012 Episodic Sprains and strains (3 sources) Sprain of left ankle; Translations: [Sprain of unspecified ligament of left ankle, initial encounter] Onset: 07-09-2024 07-09-2024 Episodic Unclassified (5 sources) New-onset atrial fibrillation with RVR 09-27-2019 Results Test Name Value Interpretation Reference Range Facility [facility] 05-02-2025 [facility] Office Visit (FAMPWS ) -------- ANDREA PIEDRA ([id number]) 1960 M Date Time Provider Department 05/02/25 6:20 PM ALAN WARD During your visit today, we recorded the following information about you: Temperature Pulse Blood pressure Weight 96.9 degrees 60/minute 120/72 105.2 kg Alan Ward MD 05/02/2025 7:47 PM Signed The patient is a 64-year-old male presenting for evaluation of a 6-day history of sore throat, nasal congestion, and dry cough. HPI Jamir Piedra is a 64-year-old male presenting for evaluation of URI symptoms. URI Symptoms: - Onset of symptoms 6 days ago, beginning with a sore throat. - Current symptoms include sore throat, congestion, dry cough, and ear pressure. - Denies productive cough, dyspnea, chest discomfort, abdominal pain, nausea, emesis, or diarrhea. - Sore throat has improved slightly this afternoon. - Using saline spray for congestion. - Previously used Nasacort but discontinued due to concerns about thrush. - Denies performing a home COVID test. - Recent history of a stomach bug 3 weeks ago, with diarrhea but no emesis. - Son, who is in preschool, has a runny nose but no other respiratory symptoms. - Received flu shot recently. MEDICATIONS: Current Outpatient Medications Medication Sig LORazepam (ATIVAN) 0.5 mg Take 1 tablet by mouth three times a day as needed (anxiety) for up to 90 days. Fexofenadine-Pseudoephed rine (SHANNAN-D 24 HOUR) 180-240 mg per 24 hr tablet Take 1 tablet by mouth once daily. loratadine/pseudoephedri ne (CLARITIN-D 24 HOUR ORAL) Take 1 tablet by mouth once daily. benazepril (LOTENSIN) 20 mg tablet Take 1 tablet by mouth two times a day. flecainide (TAMBOCOR) 100 mg tablet Take 100 mg by mouth as needed. dilTIAZem CD (CARDIZEM CD, CARTIA XT) 240 mg 24 hr capsule Take 1 capsule by mouth once daily. aspirin, enteric coated (ECOTRIN LOW STRENGTH) 81 mg EC tablet Take 81 mg by mouth once daily. atorvastatin (LIPITOR) 20 mg tablet Take 1 tablet by mouth once daily. triamcinolone acetonide (NASACORT NASAL) Use in the nose. calcium carbonate (TUMS ORAL) Take 2 tablets by mouth as needed. hydroCHLOROthiazide (HYDRODIURIL, ESIDRIX) 12.5 mg tablet Take 12.5 mg by mouth twice daily. melatonin 3 mg capsules Take 3 mg by mouth at bedtime as needed. potassium chloride (K-TAB) 10 mEq tablet Take 10 mEq by mouth once daily. metoprolol tartrate, short acting, (LOPRESSOR) 100 mg tablet Take 100 mg by mouth twice daily. No current facility-administered medications for this visit. ALLERGIES: ALLERGIES Allergen Reactions Vicodin [Hydrocodon* Mental Status Change PAST MEDICAL HISTORY Diagnosis Date Anticoagulant long-term use Arrhythmia At risk for stroke [id number] = 1 (HTN) Essential hypertension Essential hypertension Generalized anxiety disorder Hemorrhage of gastrointestinal tract, unspecified Hemorrhoids Paroxysmal atrial fibrillation (HCC) Rectal bleeding 09/2021 Sleep apnea does not use cpap. Snoring PAST SURGICAL HISTORY Procedure Laterality Date COLONOSCOPY FLX DX W/COLLJ SPEC WHEN PFRMD 07/11/2008 Colonoscopy COLONOSCOPY FLX DX W/COLLJ SPEC WHEN PFRMD 05/26/2018 Colonoscopy ESOPHAGOGASTRODUODENOSCO PY TRANSORAL DIAGNOSTIC 05/26/2018 EGD ESOPHAGOGASTRODUODENOSCO PY TRANSORAL DIAGNOSTIC 04/02/2022 EYE SURGERY HX HEMORRHOID: RUBBERBAND, SINGLE/MULTIPLE 10/04/2021 HEMORRHOID;BAND LIGAT, SNGL/MUL 04/02/2022 HEMORRHOIDECTOMY INTERNAL RUBBER BAND LIGATIONS 05/26/2018 PROCEDURE RM-COLONSCOPY W/BX 04/02/2022 FAMILY HISTORY Problem Relation Age of Onset Heart Mother Valve Replacement COPD Mother other (history of smoking) Mother Hypertension Father Kidney failure Father kidney disease - on dialysis Heart disease Father heart valve problem Hypertension Sister Hyperlipidemia Sister other (sudden infant ) Brother other (sudden ) Brother Thyroid Son Prostate Cancer No Family History none SOCIAL HISTORY[1] Reviewed current medications, allergies, past medical history, surgical history, family history and social history today. REVIEW OF SYSTEMS Ears/Nose/Mouth/Throat: (+) sore throat, (+) nasal congestion, (+) ear pressure, (+) sinus pressure Respiratory: (+) dry cough, (-) sputum production, (-) shortness of breath Cardiovascular: (-) chest discomfort Gastrointestinal: (-) abdominal pain, (-) nausea, (-) vomiting, (-) diarrhea HEALTH MAINTENANCE: Reviewed health maintenance issues today and recommended the following in detail. Covid-19 Vaccine( season) due on 02/21/2025 LAB REVIEWED: VITALS: BP 120/72 Pulse 60 Temp 36.1 ?C (96.9 ?F) Wt 105.2 kg (232 lb) SpO2 97% BMI 32.30 kg/m? Last 4 Encounter Wt Readings: Date: Wt: 05/02/2025 105.2 kg (232 lb) 04/04/2025 105 kg (231 lb 7.7 oz) 03/22/2025 106.5 kg (234 lb (more content not included)... [facility] 04-04-2025 CNOV Office Visit (YUNWS ) -------- ANDREA PIEDRA ([id number]) 1960 M Date Time Provider Department 04/04/25 3:20 PM JOSEPH LOERA During your visit today, we recorded the following information about you: Temperature Pulse Blood pressure Weight 98.4 degrees 78/minute 127/78 105 kg Joseph Loera APRN.[employer]ER/FIREMAN 04/04/2025 3:31 PM Signed Chief Complaint Patient presents with: Pain, Sinus Headache HPI Andrea Piedra is a 64 year old male who presents here today for Above Complaints.. Patient presents for sinus congestion and cough x 9 days. Reports frontal and maxillary sinus pressure and pain. Past medical history, appointments, medications, allergies reviewed. Previous Medical History PAST MEDICAL HISTORY Diagnosis Date Anticoagulant long-term use Arrhythmia At risk for stroke [id number] = 1 (HTN) Essential hypertension Essential hypertension Generalized anxiety disorder Hemorrhage of gastrointestinal tract, unspecified Hemorrhoids Paroxysmal atrial fibrillation (HCC) Rectal bleeding 09/2021 Sleep apnea does not use cpap. Snoring Previous Surgical History PAST SURGICAL HISTORY Procedure Laterality Date COLONOSCOPY FLX DX W/COLLJ SPEC WHEN PFRMD 07/11/2008 Colonoscopy COLONOSCOPY FLX DX W/COLLJ SPEC WHEN PFRMD 05/26/2018 Colonoscopy ESOPHAGOGASTRODUODENOSCO PY TRANSORAL DIAGNOSTIC 05/26/2018 EGD ESOPHAGOGASTRODUODENOSCO PY TRANSORAL DIAGNOSTIC 04/02/2022 EYE SURGERY HX HEMORRHOID: RUBBERBAND, SINGLE/MULTIPLE 10/04/2021 HEMORRHOID;BAND LIGAT, SNGL/MUL 04/02/2022 HEMORRHOIDECTOMY INTERNAL RUBBER BAND LIGATIONS 05/26/2018 PROCEDURE RM-COLONSCOPY W/BX 04/02/2022 Family History FAMILY HISTORY Problem Relation Age of Onset Heart Mother Valve Replacement COPD Mother other (history of smoking) Mother Hypertension Father Kidney failure Father kidney disease - on dialysis Heart disease Father heart valve problem Hypertension Sister Hyperlipidemia Sister other (sudden infant ) Brother other (sudden ) Brother Thyroid Son Prostate Cancer No Family History none Patient Allergies ALLERGIES Allergen Reactions Vicodin [Hydrocodon* Mental Status Change Current Medications Current Outpatient Medications on File Prior to Visit Medication Sig Fexofenadine-Pseudoephed rine (SHANNAN-D 24 HOUR) 180-240 mg per 24 hr tablet Take 1 tablet by mouth once daily. LORazepam (ATIVAN) 0.5 mg Take 1 tablet by mouth three times a day as needed (anxiety) for up to 90 days. loratadine/pseudoephedri ne (CLARITIN-D 24 HOUR ORAL) Take 1 tablet by mouth once daily. benazepril (LOTENSIN) 20 mg tablet Take 1 tablet by mouth two times a day. flecainide (TAMBOCOR) 100 mg tablet Take 100 mg by mouth as needed. dilTIAZem CD (CARDIZEM CD, CARTIA XT) 240 mg 24 hr capsule Take 1 capsule by mouth once daily. aspirin, enteric coated (ECOTRIN LOW STRENGTH) 81 mg EC tablet Take 81 mg by mouth once daily. atorvastatin (LIPITOR) 20 mg tablet Take 1 tablet by mouth once daily. triamcinolone acetonide (NASACORT NASAL) Use in the nose. calcium carbonate (TUMS ORAL) Take 2 tablets by mouth as needed. hydroCHLOROthiazide (HYDRODIURIL, ESIDRIX) 12.5 mg tablet Take 12.5 mg by mouth twice daily. melatonin 3 mg capsules Take 3 mg by mouth at bedtime as needed. potassium chloride (K-TAB) 10 mEq tablet Take 10 mEq by mouth once daily. metoprolol tartrate, short acting, (LOPRESSOR) 100 mg tablet Take 100 mg by mouth twice daily. No current facility-administered medications on file prior to visit. Social History SOCIAL HISTORY[1] Review of Symptoms REVIEW OF SYSTEMS SEE HPI EXAM: BP 127/78 Pulse 78 Temp 36.9 ?C (98.4 ?F) Wt 105 kg (231 lb 7.7 oz) BMI 32.23 kg/m? General Appearance: Well appearing, alert, in no acute distress, well-hydrated, well nourished. Nose/Sinuses: Positive findings: mucosa erythematous and swollen, purulent rhinorrhea. Oropharynx: Lips, mucosa, and tongue normal, teeth and gums normal, oropharynx normal. Neck: Supple, no adenopathy; thyroid symmetric, normal size, no bruits. Health Maintenance List Covid-19 Vaccine( season) due on 02/21/2025 Pneumococcal Vaccine: 50+(1 of 1 - PCV) due on 09/06/2025 DTaP,Tdap,Td Vaccine(2 - Td or Tdap) due on 03/22/2026 Shingrix Vaccine(1 of 2) due on 03/22/2026 Depression Screening due on 09/06/2025 Annual PCP Team Chronic Disease Visit due on 03/22/2026 Prostate Cancer Screening Discussion due on 12/20/2026 Diabetes Screening due on 03/18/2028 Lipid Screening due on 09/02/2029 Colorectal Cancer Screening due on 04/02/2032 RSV Vaccine(1 - 1-dose 75+ series) due on 2036 Influenza Vaccine Completed Hepatitis C Screening Completed HIV Screening Discontinued ASSESSMENT/PLAN: 1. Bacterial sinusitis - ICD9: 473.9, 041.9, ICD10: J32.9, B96.89 - (more content not included)... [facility] CNOVon 03-22-2025 CNOV Office Visit (FAMPWS ) -------- ANDREA PIEDRA ([id number]) 1960 M Date Time Provider Department 03/22/25 3:00 PM ALAN WARD During your visit today, we recorded the following information about you: Temperature Pulse Respiration Blood pressure 98.1 degrees 67/minute 16/minute 122/80 Weight Height 106.5 kg 1.805 m Alan Ward MD 03/22/2025 3:32 PM Addendum We discussed your anxiety: - You mentioned that your anxiety has been manageable during the summer, but you may consider anxiety medication as winter approaches. Please let me know if your symptoms worsen, and we can revisit this discussion. We discussed your heart health: - Your blood pressure today was 122/80, which is within the normal range. - You reported occasional episodes of shakiness and a temporary increase in heart rate, which resolve on their own. These are likely related to the short runs of SVT (supraventricular tachycardia) identified during your heart monitoring in 2023. 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 - You are currently taking baby aspirin instead of blood thinners, as your CHADS score is low. Please continue taking the baby aspirin as directed. - Continue taking Lipitor as prescribed. You reported no significant side effects. We discussed your blood sugar and lab results: - Your A1c has improved significantly, dropping from 6.1 to 5.6 in the past six months. This is now within the normal range. Great job with your dietary changes, including eating more fruits. - I have ordered repeat blood work (CBC, CMP, A1c, cholesterol, and kidney function) for six months from now. We discussed your shoulder pain: - You mentioned ongoing shoulder pain and that Dr. Mcfadden suggested injections if physical therapy does not help. Your A1c is at a level that would allow for this treatment if needed. Please follow up with Dr. Mcfadden as necessary. We discussed your left ankle swelling: - You reported mild swelling in your left ankle that worsens throughout the day but does not cause pain. Your MRI was normal, and this may be due to a small fluid pocket. Since it is not bothersome, we will continue to monitor it. We discussed vaccinations: - I recommend getting a flu shot to reduce your risk of complications from influenza, especially since you had influenza B last winter. Common side effects include mild achiness or a low-grade fever for less than 24 hours. You can receive the flu shot today if you would like. - Consider a shingles vaccine if you are interested. Please check with your insurance for coverage, as it can be expensive. We discussed prostate health: - It has been about three years since your last PSA (prostate-specific antigen) test. I recommend repeating this test to monitor your prostate health. While the PSA test has a high false-positive rate, it is the best available option for screening. We discussed your vertigo: - You reported no recent issues with vertigo, except for occasional dizziness when getting up quickly. No further action is needed at this time. Plan: - Continue your current medications, including Lipitor and baby aspirin. - Follow up with Dr. Mcfadden regarding your shoulder pain if physical therapy does not improve your symptoms. - Monitor your left ankle swelling and let me know if it worsens or becomes painful. - Get your flu shot today or at your earliest convenience. - Repeat blood work in six months. - Consider scheduling a PSA test if you agree to proceed. Please let me know if you have any new or worsening symptoms. Alan Ward MD 03/22/2025 5:01 PM Signed The patient is a 64-year-old male with HTN, hyperlipidemia, paroxysmal SVT, prediabetes, and anxiety, presenting for follow-up and routine preventive care. HPI Annual Wellness Exam: - No significant concerns or questions at this time. - No recent falls, memory issues, or unusual headaches. - No changes in rashes or abnormal moles. - No cough, wheezing, or chest pain. - No changes in bowel movements, hematochezia, or melena. - No heartburn, nausea, or emesis. - No urinary issues. - No tremors or shakiness. - No recent episodes of vertigo. - Reports seasonal flu or colds, difficult to differentiate. - Son, Emerson, is 4.5 years old and in preschool. - Considering flu shot; had influenza B last winter. - No issues with COVID vaccinations. Anxiety: - Anxiety well-controlled during summer months. - Considering anxiety medication for winter; currently using lorazepam PRN. SVT: - Occasional episodes of feeling "shaky" with elevated heart rate up to 116 bpm, resolves with deep breathing. - Holter monitor showed two short runs of SVT about a year ago. - Swatch Folder suggested medication (unspecified) to manage SVT, but no (more content not included)... [facility] HbA1c (Bld)on 03-18-2025 Average glucose Estimated from glycated hemoglobin (Bld) [Mass/Vol] 114 mg/dL [facility] Comment on above: Order Comment: Gabby orozco Type: BLOOD SPECIMENOrdering Facility: [facility] Address: [address] [place] [address] Result Comment: eAG: (Estimated average glucose) is a calculated value from HgbA1c and is access service representative of the average blood glucose level in the last 2-3 month period. Performed By: #### 5 5454-3 ####[facility] [id number] [address] STATES OF [facility] HbA1c (Bld) [Mass fraction] 5.6 % Normal 4.3-5.6 [facility] Comment on above: Order Comment: Gabby orozco Type: BLOOD SPECIMENOrdering Facility: [facility] Address: [address] [place] [address] Result Comment: [place]oly [place] Diabetes Association guidelines indicate that patients with HgbA1c in the range 5.7-6.4% are at increased risk for development of diabetes, and intervention by lifestyle modification may be beneficial. HgbA1c greater or equal to 6.5% is considered diagnostic of diabetes. 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 Patient presents for complaints of sinus pain, ear pressure and headache x 6 days. Reports symptoms are improving and he has been taking tylenol. Past medical history, appointments, medications, allergies reviewed. Previous Medical History PAST MEDICAL HISTORY Diagnosis Date Anticoagulant long-term use Arrhythmia At risk for stroke [id number] = 1 (HTN) Essential hypertension Essential hypertension Generalized anxiety disorder Hemorrhage of gastrointestinal tract, unspecified Hemorrhoids Paroxysmal atrial fibrillation (HCC) Rectal bleeding 09/2021 Sleep apnea does not use cpap. Snoring Previous Surgical History PAST SURGICAL HISTORY Procedure Laterality Date COLONOSCOPY FLX DX W/COLLJ SPEC WHEN PFRMD 07/11/2008 Colonoscopy COLONOSCOPY FLX DX W/COLLJ SPEC WHEN PFRMD 05/26/2018 Colonoscopy ESOPHAGOGASTRODUODENOSCO PY TRANSORAL DIAGNOSTIC 05/26/2018 EGD ESOPHAGOGASTRODUODENOSCO PY TRANSORAL DIAGNOSTIC 04/02/2022 EYE SURGERY HX HEMORRHOID: RUBBERBAND, SINGLE/MULTIPLE 10/04/2021 HEMORRHOID;BAND LIGAT, SNGL/MUL 04/02/2022 HEMORRHOIDECTOMY INTERNAL RUBBER BAND LIGATIONS 05/26/2018 PROCEDURE RM-COLONSCOPY W/BX 04/02/2022 Family History FAMILY HISTORY Problem Relation Age of Onset Heart Mother Valve Replacement COPD Mother other (history of smoking) Mother Hypertension Father Kidney failure Father kidney disease - on dialysis Heart disease Father heart valve problem Hypertension Sister Hyperlipidemia Sister other (sudden infant ) Brother other (sudden infant ) Brother Thyroid Son Prostate Cancer No Family History none Patient Allergies ALLERGIES Allergen Reactions Vicodin [Hydrocodon* Mental Status Change Current Medications Current Outpatient Medications on File Prior to Visit Medication Sig LORazepam (ATIVAN) 0.5 mg Take 1 tablet by mouth three times a day as needed (anxiety) for up to 90 days. loratadine/pseudoephedri ne (CLARITIN-D 24 HOUR ORAL) Take 1 tablet by mouth once daily. benazepril (LOTENSIN) 20 mg tablet Take 1 tablet by mouth two times a day. nystatin (MYCOSTATIN) 100,000 unit/mL suspension Take 5 mL by mouth four times daily. 1tsp swish in mouth for several minutes, then swallow (or expectorate) 4 times daily until gone. (Patient not taking: Reported on 09/13/2024) flecainide (TAMBOCOR) 100 mg tablet Take 100 mg by mouth as needed. dilTIAZem CD (CARDIZEM CD, CARTIA XT) 240 mg 24 hr capsule Take 1 capsule by mouth once daily. aspirin, enteric coated (ECOTRIN LOW STRENGTH) 81 mg EC tablet Take 81 mg by mouth once daily. atorvastatin (LIPITOR) 20 mg tablet Take 1 tablet by mouth once daily. triamcinolone acetonide (NASACORT NASAL) Use in the nose. fexofenadine (SHANNAN) 180 mg tablet Take 180 mg by mouth once daily. (Patient not taking: Reported on 09/13/2024) calcium carbonate (TUMS ORAL) Take 2 tablets by mouth as needed. hydroCHLOROthiazide (HYDRODIURIL, ESIDRIX) 12.5 mg tablet Take 12.5 mg by mouth twice daily. melatonin 3 mg capsules Take 3 mg by mouth at bedtime as needed. potassium chloride (K-TAB) 10 mEq tablet Take 10 mEq by mouth once daily. metoprolol tartrate, short acting, (LOPRESSOR) 100 mg tablet Take 100 mg by mouth twice daily. No current facility-administered medications on file prior to visit. Social History SOCIAL HISTORY[1] Review of Symptoms REVIEW OF SYSTEMS SEE HPI EXAM: BP 142/81 Pulse 69 Wt 106 kg (233 lb 11 oz) BMI 33.53 kg/m? General Appearance: Well appearing, alert, in no acute distress, well-hydrated, well nourished.. Ears: Positive findings: R TM: bulging, L TM: bulging. Nose/Sinuses: Positive findings: mucosa erythematous and swollen, clear rhinorrhea. Oropharynx: Positive findings: mild oropharyngeal erythema. Neck: Supple, no adenopathy; thyroid symmetric, normal size, no bruits. Health Maintenance List Shingrix Vaccine(1 of 2) Never done DTaP,Tdap,Td Vaccine(2 - Td or Tdap) due on 12/02/2018 Pneumococcal Vaccine: 50+(1 of 1 - PCV) due on 09/06/2025 Influenza Vaccine(1) due on 02/21/2025 Depression Screening due on 09/06/2025 Annual PCP Team Chronic Disease Visit due on 10/18/2025 Prostate Cancer Screening Discussion due on 12/20/2026 Diabetes Screening due on 09/03/2027 Lipid Screening due on 09/02/2029 Colorectal Cancer Screening du (more content not included)... [facility] CNPNon 01-20-2025 CNPN Telephone (PODIWS) -------- ANDREA PIEDRA ([id number]) 1960 M Date Time Provider Department 01/20/25 SANDEEP IQBAL During your visit today, we recorded the following information about you: Vicki Guzman MA 01/20/2025 11:23 AM Signed Pt had MRI 01/14 and is asking for results. He does not typically use mychart and would like a phone call. [phone] Please review and advise. SAIMA Bowles Amelia, LPN 01/21/2025 4:41 PM Signed Sandeep Iqbal [facility] Podiatry Pool8 hours ago (7:53 AM) Please call patient to inform him that his mri does not show any underlying soft-tissue mass. There is some evidence of inflammation along his plantar fascia, that is the soft-tissue lining of the heel musculature. JANNY Day Amelia, LPN 01/21/2025 4:41 PM Signed Patient notified of results and provider's instructions. Patient states feet feel better with stretches and inserts. Patient wants to know what the provider feels is going on. Patient verbalizes understanding. Please advise. DANN Soto Amelia, LPN 01/27/2025 4:19 PM Signed Sandeep Iqbal to Me 01/26/25 10:39 PM I suspect he is having heel pain, perhaps related to plantar fasciitis. Would continue with inserts and stretching. He can make follow-up to discuss further Sandeep JANNY Iqbal Amelia, LPN 01/27/2025 4:19 PM Signed Called patient to provide below instruction. No response. Left Vm. DANN Soto Danelle, RN 01/27/2025 4:27 PM Signed Patient called back and given message from Dr. Iqbal. Patient denied scheduling appointment at this time and states that the pain is starting to feel better. Anika Trevino RN Allergies As of Date: 01/20/2025 Noted Allergy Reaction VICODIN (HYDROCODONE-ACETAMINOPH E*01/29/2007 1 - Mental Status Change Date Reviewed: 01/14/2025 Reviewed by: Kamilla Thomas, RT(R) - Fully Assessed Reason for Visit: Results [95] Prescriptions as of 01/27/2025 - LORazepam (ATIVAN) 0.5 mg Take 1 tablet by mouth three times a day as needed (anxiety) for up to 90 days. - loratadine/pseudoephedri ne (CLARITIN-D 24 HOUR ORAL) Take 1 tablet by mouth once daily. - benazepril (LOTENSIN) 20 mg tablet Take 1 tablet by mouth two times a day. - nystatin (MYCOSTATIN) 100,000 unit/mL suspension Take 5 mL by mouth four times daily. 1tsp swish in mouth for several minutes, then swallow (or expectorate) 4 times daily until gone. - flecainide (TAMBOCOR) 100 mg tablet Take 100 mg by mouth as needed. - dilTIAZem CD (CARDIZEM CD, CARTIA XT) 240 mg 24 hr capsule Take 1 capsule by mouth once daily. - aspirin, enteric coated (ECOTRIN LOW STRENGTH) 81 mg EC tablet Take 81 mg by mouth once daily. - atorvastatin (LIPITOR) 20 mg tablet Take 1 tablet by mouth once daily. - triamcinolone acetonide (NASACORT NASAL) Use in the nose. - fexofenadine (SHANNAN) 180 mg tablet Take 180 mg by mouth once daily. - calcium carbonate (TUMS ORAL) Take 2 tablets by mouth as needed. - hydroCHLOROthiazide (HYDRODIURIL, ESIDRIX) 12.5 mg tablet Take 12.5 mg by mouth twice daily. - melatonin 3 mg capsules Take 3 mg by mouth at bedtime as needed. - potassium chloride (K-TAB) 10 mEq tablet Take 10 mEq by mouth once daily. - metoprolol tartrate, short acting, (LOPRESSOR) 100 mg tablet Take 100 mg by mouth twice daily. Problem List As Of Date 01/20/2025 Noted Resolved Cervicalgia [M54.2] 08/21/2005 10/29/2012 Generalized Anxiety Disorder [F41.1] Essential hypertension [I10] Mixed hyperlipidemia [E78.2] 05/10/2008 Unspecified Sleep Apnea [G47.30] 09/09/2008 Routine general medical examination at [facility]*10/16/2009 02/10/2012 Class: Chronic Pain in joint, lower leg [M25.569] 02/20/2010 10/29/2012 Pain in joint, shoulder region [M25.519] 02/20/2010 10/29/2012 Palpitations [R00.2] 02/25/2012 03/28/2021 Hyperlipidemia [E78.5] 10/29/2012 09/26/2021 Backache, unspecified [M54.9] 12/03/2013 09/04/2016 Benign non-nodular prostatic hyperplasia withou*07/18/2016 Epididymal cyst [N50.3] 07/18/2016 10/21/2022 Paroxysmal atrial fibrillation (HCC) [I48.0] 09/25/2018 Hyperglycemia [R73.9] 03/27/2020 At risk for stroke [Z91.89] 05/01/2021 10/21/2022 Anticoagulant long-term use [Z79.01] 05/01/2021 03/08/2024 Obesity, Class I, BMI 30-34.9 [E66.811] 05/02/2021 Special screening examination for viral disease*09/26/2021 09/26/2021 Diarrhea [R19.7] 03/29/2022 10/21/2022 Pure hypercholesterolemia, unspecified [E78.00] 07/13/2021 03/04/2023 Benign paroxysmal positional vertigo [H81.10] 12/20/2022 Tendinitis of shoulder [M77.8] 03/31/2024 Acute right-sided low back pain without sciatic*03/31/2024 Plantar fasciitis of left foot [M72.2] 10/25/2024 Encounter Status:Closed by ANIKA TREVINO on 01/27/25 [facility] MR Ankle - left WO and W con trast Jose Ramon 01-14-2025 IMPRESSION: No soft tissue mass or abnormal enhancement. Plantar fasciitis. Last Marker: VICENTA Transcribe Date/Time: Jan 14 2025 11:57A Dictated by : CHRISTINE ROB MD This examination was interpreted and the report reviewed and electronically signed by: ANDREA HUBBARD MD on Jan 14 2025 1:18PM [facility] DIVISION OF RADIOLOGY * * *Final Report* * * DATE OF EXAM: Jan 14 2025 8:06AM [facility] 0165 - MRI ANKLE WO/W IVCON LT / PROCEDURE REASON: multiple diagnoses * * * * Physician Interpretation * * * * EXAMINATION: MRI ANKLE WO/W IVCON LT HISTORY: Posterior tibial tendon dysfunction Soft tissue mass AREA ON MEDIAL ASPECT LT ANKLE THAT SWELLS UP THROUGHOUT THE DAY, NKI, NO SX TECHNIQUE: Routine MRI of the left ankle/hindfoot without and with contrast; [address] [place], [place] [address]ire IV COMPARISON: Ankle radiograph 07/09/2024. RESULT: TENDONS Achilles tendon: Mild Achilles tendinosis. Posterior tibial tendon: Mild distal tendinosis without tearing. Flexor digitorum longus tendon: Intact Flexor hallucis longus tendon: Intact Peroneal tendons: Intact Extensor tendons: Intact LIGAMENTS Lateral: Anterior talofibular ligament: Intact Calcaneofibular ligament: Intact Posterior talofibular ligament: Intact Medial: Deltoid ligament: Sequela of low grade sprain. Spring ligament: Grossly intact. Syndesmosis: Anterior-inferior tibiofibular ligament: Intact Posterior tibiofibular ligament: Intact BONES AND JOINTS Joints/cartilage: There is mild chondral degeneration. Preserved talar dome. No osteochondral lesion. Bone Marrow: No fracture or suspicious marrow replacing lesions. Joint fluid: No sizable joint effusion or synovitis. OTHER Plantar fascia: Prominent plantar calcaneal enthesophyte with thickening and edema of the proximal plantar fascia and reactive marrow edema, consistent with plantar fasciitis. Sinus tarsi and tarsal tunnel: Within normal limits. Other: In the area of palpable concern, along the posterior medial malleolar region, no evidence of suspicious mass or collection. Localizer images: No significant additional findings. DIVISION OF RADIOLOGY Provider, Sang Barker [facility] - 01/14/2025 * * *Final Report* * * DATE OF EXAM: Jan 14 2025 8:06AM [facility] 0165 - MRI ANKLE WO/W IVCON LT / PROCEDURE REASON: multiple diagnoses * * * * Physician Interpretation * * * * EXAMINATION: MRI ANKLE WO/W IVCON LT HISTORY: Posterior tibial tendon dysfunction Soft tissue mass AREA ON MEDIAL ASPECT LT ANKLE THAT SWELLS UP THROUGHOUT THE DAY, NKI, NO SX TECHNIQUE: Routine MRI of the left ankle/hindfoot without and with contrast; 10 Elucire[facility] IV COMPARISON: Ankle radiograph 07/09/2024. RESULT: TENDONS Achilles tendon: Mild Achilles tendinosis. Posterior tibial tendon: Mild distal tendinosis without tearing. Flexor digitorum longus tendon: Intact Flexor hallucis longus tendon: Intact Peroneal tendons: Intact Extensor tendons: Intact LIGAMENTS Lateral: Anterior talofibular ligament: Intact Calcaneofibular ligament: Intact Posterior talofibular ligament: Intact Medial: Deltoid ligament: Sequela of low grade sprain. Spring ligament: Grossly intact. Syndesmosis: Anterior-inferior tibiofibular ligament: Intact Posterior tibiofibular ligament: Intact BONES AND JOINTS Joints/cartilage: There is mild chondral degeneration. Preserved talar dome. No osteochondral lesion. Bone Marrow: No fracture or suspicious marrow replacing lesions. Joint fluid: No sizable joint effusion or synovitis. OTHER Plantar fascia: Prominent plantar calcaneal enthesophyte with thickening and edema of the proximal plantar fascia and reactive marrow edema, consistent with plantar fasciitis. Sinus tarsi and tarsal tunnel: Within normal limits. Other: In the area of palpable concern, along the posterior medial malleolar region, no evidence of suspicious mass or collection. Localizer images: No significant additional findings. IMPRESSION IMPRESSION: No soft tissue mass or abnormal enhancement. Plantar fasciitis. Last Marker: VICENTA Transcribe Date/Time: Jan 14 2025 11:57A Dictated by : CHRISTINE ROB MD This examination was interpreted and the report reviewed and electronically signed by: ANDREA HUBBARD MD on Jan 14 2025 1:18PM EST [facility] Radiology Study observation (narrative) [facility] MR Ankle - left WO and W con trast IVOrdered By: [facility]cf Provider on 01-14-2025 [facility] MRI ANKLE WO/W IVCON LTon MRI ANKLE WO/W IVCON LT * * *Final Report* * * DATE OF EXAM: Jan 14 2025 8:06AM [facility] 0165 - MRI ANKLE WO/W IVCON LT / PROCEDURE REASON: multiple diagnoses * * * * Physician Interpretation * * * * EXAMINATION: MRI ANKLE WO/W IVCON LT HISTORY: Posterior tibial tendon dysfunction Soft tissue mass AREA ON MEDIAL ASPECT LT ANKLE THAT SWELLS UP THROUGHOUT THE DAY, NKI, NO SX TECHNIQUE: Routine MRI of the left ankle/hindfoot without and with contrast; 10 Elucirem IV COMPARISON: Ankle radiograph 07/09/2024. RESULT: TENDONS Achilles tendon: Mild Achilles tendinosis. Posterior tibial tendon: Mild distal tendinosis without tearing. Flexor digitorum longus tendon: Intact Flexor hallucis longus tendon: Intact Peroneal tendons: Intact Extensor tendons: Intact LIGAMENTS Lateral: Anterior talofibular ligament: Intact Calcaneofibular ligament: Intact Posterior talofibular ligament: Intact Medial: Deltoid ligament: Sequela of low grade sprain. Spring ligament: Grossly intact. Syndesmosis: Anterior-inferior tibiofibular ligament: Intact Posterior tibiofibular ligament: Intact BONES AND JOINTS Joints/cartilage: There is mild chondral degeneration. Preserved talar dome. No osteochondral lesion. Bone Marrow: No fracture or suspicious marrow replacing lesions. Joint fluid: No sizable joint effusion or synovitis. OTHER Plantar fascia: Prominent plantar calcaneal enthesophyte with thickening and edema of the proximal plantar fascia and reactive marrow edema, consistent with plantar fasciitis. Sinus tarsi and tarsal tunnel: Within normal limits. Other: In the area of palpable concern, along the posterior medial malleolar region, no evidence of suspicious mass or collection. Localizer images: No significant additional findings. IMPRESSION: No soft tissue mass or abnormal enhancement. Plantar fasciitis. Last Marker: VICENTA Transcribe Date/Time: Jan 14 2025 11:57A Dictated by : CHRISTINE ROB MD This examination was interpreted and the report reviewed and electronically signed by: ANDREA HUBBARD MD on Jan 14 2025 1:18PM EST [id number] [facility] Cardiology Visit Reporton Cardiology Visit Report [facility] [address] [place] [address] OFFICE VISIT Date of Service: 01/11/25 MR#: [id number] Acct: [id number] Name: ANDREA PIEDRA Rep #: [id number] : 1960 Provider: ALAN jeffrey Age/Sex: 64/M Location: [facility] Status: Signed HPI HPI History of Present Illness Details: This is a 64-year-old white male who presents today for an outpatient cardiovascular visit. He has a history of paroxysmal atrial fibrillation, hyperlipidemia, and hypertension. 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 Mosnon previously. He denies chest, arm, jaw, or neck discomfort. He states occasional palpitations that he describes as skipping and fluttering. He denies bilateral lower extremity edema. He denies claudication. He denies shortness of breath with activity, shortness of breath at rest, orthopnea, or PND. He denies chronic cough. He denies significant, sudden weight gain. He denies lightheadedness, dizziness, near-syncope, or syncope. He denies blood in urine, blood in stool, or epistaxis. He denies fever with chills. He denies myalgia. He denies fatigue. His exercise level has remained stable. Intake Vital Signs 06/29/24 09:17 01/11/25 08:09 Height 5 ft 11 in 5 ft 11 in Weight: 239 lb 234 lb BMI 33.3 32.6 BP 121/76 H 134/86 H Blood Pressure Location Lt brachial Lt brachial Position Sitting Sitting Respiration 18 16 Pulse 52 L 57 L Pulse Source Monitor NIBP Temp 97.4 F L Temperature Source Temporal Artery Pulse Oximetry (%) 95 Oxygen Delivery Method room air Intake Visit Reasons: 6 M FU Family Support Coordinator Required: No Is patient in pain?: No Allergies hydrocodone (From Vicodin) Adverse Reaction (Verified 01/11/25 08:09) Other Medications ???Medication ???Instructions ???Recorded ???Confirmed ???Type melatonin 3 mg capsule 3 mg PO HS 03/29/19 01/11/25 Histo ry lorazepam 0.5 mg tablet 0.5 mg PO QHS PRN Anxiety 10/21/22 01/11/25 History benazepril 20 mg tablet 20 mg PO BID #180 tabs 06/26/23 Rx calcium carbonate (Tums) 200 mg PO ONCE PRN 05/24/24 History triamcinolone acetonide 55 mcg 2 spray intranasal QDAY PRN 01/11/25 History nasal spray aerosol (Nasacort) aspirin 81 mg chewable tablet 81 mg PO DAILY #90 tabs 07/05/24 0 01/11/25 Rx atorvastatin 20 mg tablet 20 mg PO QHS #90 tabs 07/05/24 Rx diltiazem HCl 240 mg 240 mg PO QDAY #90 caps 07/05/24 0 01/11/25 Rx capsule,extended release 24 hr flecainide 100 mg tablet 100 mg PO ONCE PRN atrial 07/05/24 01/11/25 Rx fibrillation #7 tabs hydrochlorothiazide 12.5 mg tablet 12.5 mg PO QAM #90 tabs 07/05/24 01/11/25 Rx metoprolol tartrate 100 mg tablet 100 mg PO BID #180 tabs 07/05/24 01/11/25 Rx potassium chloride 10 mEq 10 meq PO QDAY #90 tabs 07/05/24 0 01/11/25 Rx tablet,extended release loratadine 10 mg tablet (Claritin) 10 mg PO QDAY 01/11/25 01/11/25 History Ejection fraction %: 70 Have you fallen in the past year?: No PFSH Medical History Palpitations RAMSEY (obstructive sleep apnea) Bronchitis Hypersomnia Pure hypercholesterolemia Essential (primary) hypertension Paroxysmal atrial fibrillation New-onset atrial fibrillation with RVR Atrial fibrillation Surgical History History of cataract extraction Family History Mother Heart disease valve replacement Father Hypertension Kidney disease Heart disease valve problems Social History household members: spouse housing: house current occupational status: employed current occupation: [employer] [address] [place] [address] pets and animals: Yes pets and animals: dog(s) Smoking Status: Never smoker second hand exposure: No alcohol intake: current alcohol intake frequency: holidays/special occasions only Alcohol type: beer and wine substance use type: does not use caffeine: Yes Type: coffee Number of servings: 1 ROS Const Const: Negative for fatigue or weakness Eyes Eyes: Negative for change in vision ENT ENT: Negative for dizziness or balance problems Cardio Chest Pain: No Palpitations: Yes (Occasionally) feels like its: skipping and other (Fluttering) Edema: None Muscle aches with walking: None Resp Respiratory: Negative for SOB with activity, SOB at rest or SOB orthopnea SOB lying down GI GI: Negative nausea or heartburn : Negative for hematuria or frequent nighttime urination/ nocturia Musc Musc: Negative for balance problems Skin Skin: Negative non-healing lesions or rash Neuro Neuro: Negativ (more content not included)... Normal [facility] 01-10-2025 [facility] Telephone (PODIWS) -------- ANDREA PIEDRA ([id number]) 1960 M Date Time Provider Department 01/10/25 SANDEEP IQBAL During your visit today, we recorded the following information about you: Stacy Roman LPN 01/10/2025 11:44 AM Signed Margaritan calling in with authorization for MRI lower extremity. Auth # [id number] dates 01/07/25-02/05/25. Stacy Roman LPN Allergies As of Date: 01/10/2025 Noted Allergy Reaction VICODIN (HYDROCODONE-ACETAMINOPH E*01/29/2007 1 - Mental Status Change Date Reviewed: 12/23/2024 Reviewed by: Verona Gama LPN - Fully Assessed Reason for Visit: MRI authorization [Other] Prescriptions as of 01/11/2025 - loratadine/pseudoephedri ne (CLARITIN-D 24 HOUR ORAL) Take 1 tablet by mouth once daily. - benazepril (LOTENSIN) 20 mg tablet Take 1 tablet by mouth two times a day. - nystatin (MYCOSTATIN) 100,000 unit/mL suspension Take 5 mL by mouth four times daily. 1tsp swish in mouth for several minutes, then swallow (or expectorate) 4 times daily until gone. - flecainide (TAMBOCOR) 100 mg tablet Take 100 mg by mouth as needed. - dilTIAZem CD (CARDIZEM CD, CARTIA XT) 240 mg 24 hr capsule Take 1 capsule by mouth once daily. - aspirin, enteric coated (ECOTRIN LOW STRENGTH) 81 mg EC tablet Take 81 mg by mouth once daily. - atorvastatin (LIPITOR) 20 mg tablet Take 1 tablet by mouth once daily. - triamcinolone acetonide (NASACORT NASAL) Use in the nose. - fexofenadine (SHANNAN) 180 mg tablet Take 180 mg by mouth once daily. - calcium carbonate (TUMS ORAL) Take 2 tablets by mouth as needed. - hydroCHLOROthiazide (HYDRODIURIL, ESIDRIX) 12.5 mg tablet Take 12.5 mg by mouth twice daily. - melatonin 3 mg capsules Take 3 mg by mouth at bedtime as needed. - potassium chloride (K-TAB) 10 mEq tablet Take 10 mEq by mouth once daily. - metoprolol tartrate, short acting, (LOPRESSOR) 100 mg tablet Take 100 mg by mouth twice daily. Problem List As Of Date 01/10/2025 Noted Resolved Cervicalgia [M54.2] 08/21/2005 10/29/2012 Generalized Anxiety Disorder [F41.1] Essential hypertension [I10] Mixed hyperlipidemia [E78.2] 05/10/2008 Unspecified Sleep Apnea [G47.30] 09/09/2008 Routine general medical examination at [facility]*10/16/2009 02/10/2012 Class: Chronic Pain in joint, lower leg [M25.569] 02/20/2010 10/29/2012 Pain in joint, shoulder region [M25.519] 02/20/2010 10/29/2012 Palpitations [R00.2] 02/25/2012 03/28/2021 Hyperlipidemia [E78.5] 10/29/2012 09/26/2021 Backache, unspecified [M54.9] 12/03/2013 09/04/2016 Benign non-nodular prostatic hyperplasia withou*07/18/2016 Epididymal cyst [N50.3] 07/18/2016 10/21/2022 Paroxysmal atrial fibrillation (HCC) [I48.0] 09/25/2018 Hyperglycemia [R73.9] 03/27/2020 At risk for stroke [Z91.89] 05/01/2021 10/21/2022 Anticoagulant long-term use [Z79.01] 05/01/2021 03/08/2024 Obesity, Class I, BMI 30-34.9 [E66.811] 05/02/2021 Special screening examination for viral disease*09/26/2021 09/26/2021 Diarrhea [R19.7] 03/29/2022 10/21/2022 Pure hypercholesterolemia, unspecified [E78.00] 07/13/2021 03/04/2023 Benign paroxysmal positional vertigo [H81.10] 12/20/2022 Tendinitis of shoulder [M77.8] 03/31/2024 Acute right-sided low back pain without sciatic*03/31/2024 Plantar fasciitis of left foot [M72.2] 10/25/2024 Encounter Status:Closed by VERONA GAMA on 01/11/25 [facility] CNTHERAPYon 01-03-2025 CNTHERAPY OT/PT/Speech Visit (PTWS) -------- ANDREA PIEDRA ([id number]) 1960 Date Time Provider Department 01/03/25 9:45 AM JOHN ORNELAS PTWS Date Time Provider Department Center 01/03/2025 9:45 AM [id number], SEAN PTWS Yoanna Dorsey Reason for Visit: PT Discharge [752] Primary Visit Diagnosis:Tendinitis of left shoulder [M77.8] Other Visit Diagnosis:Plantar fasciitis of left foot [M72.2] Allergies As of Date: 01/03/2025 Noted Allergy Reaction VICODIN (HYDROCODONE-ACETAMINOPH E*01/29/2007 1 - Mental Status Change Date Reviewed: 12/23/2024 Reviewed by: Verona Gama LPN - Fully Assessed Prescriptions as of 01/03/2025 - loratadine/pseudoephedri ne (CLARITIN-D 24 HOUR ORAL) Take 1 tablet by mouth once daily. - benazepril (LOTENSIN) 20 mg tablet Take 1 tablet by mouth two times a day. - nystatin (MYCOSTATIN) 100,000 unit/mL suspension Take 5 mL by mouth four times daily. 1tsp swish in mouth for several minutes, then swallow (or expectorate) 4 times daily until gone. - flecainide (TAMBOCOR) 100 mg tablet Take 100 mg by mouth as needed. - dilTIAZem CD (CARDIZEM CD, CARTIA XT) 240 mg 24 hr capsule Take 1 capsule by mouth once daily. - aspirin, enteric coated (ECOTRIN LOW STRENGTH) 81 mg EC tablet Take 81 mg by mouth once daily. - atorvastatin (LIPITOR) 20 mg tablet Take 1 tablet by mouth once daily. - triamcinolone acetonide (NASACORT NASAL) Use in the nose. - fexofenadine (SHANNAN) 180 mg tablet Take 180 mg by mouth once daily. - calcium carbonate (TUMS ORAL) Take 2 tablets by mouth as needed. - hydroCHLOROthiazide (HYDRODIURIL, ESIDRIX) 12.5 mg tablet Take 12.5 mg by mouth twice daily. - melatonin 3 mg capsules Take 3 mg by mouth at bedtime as needed. - potassium chloride (K-TAB) 10 mEq tablet Take 10 mEq by mouth once daily. - metoprolol tartrate, short acting, (LOPRESSOR) 100 mg tablet Take 100 mg by mouth twice daily. [facility] CNTHERAPYon 12-27-2024 CNTHERAPY OT/PT/Speech Visit (PTWS) -------- ANDREA PIEDRA ([id number]) 1960 M Date Time Provider Department 12/27/24 9:30 AM PUSHPA WILLIAMSON PTWS Date Time Provider Department [place] 12/27/2024 9:30 AM [id number], MARIAH PTWS Yoanna Dorsey Reason for Visit: Physical Therapy [503] Primary Visit Diagnosis:Tendinitis of left shoulder [M77.8] Other Visit Diagnoses:Foot pain, left [M79.672] Plantar fasciitis [M72.2] Plantar fasciitis of left foot [M72.2] Allergies As of Date: 12/27/2024 Noted Allergy Reaction VICODIN (HYDROCODONE-ACETAMINOPH E*01/29/2007 1 - Mental Status Change Date Reviewed: 12/23/2024 Reviewed by: Verona Gama LPN - Fully Assessed Prescriptions as of 12/27/2024 - loratadine/pseudoephedri ne (CLARITIN-D 24 HOUR ORAL) Take 1 tablet by mouth once daily. - benazepril (LOTENSIN) 20 mg tablet Take 1 tablet by mouth two times a day. - nystatin (MYCOSTATIN) 100,000 unit/mL suspension Take 5 mL by mouth four times daily. 1tsp swish in mouth for several minutes, then swallow (or expectorate) 4 times daily until gone. - flecainide (TAMBOCOR) 100 mg tablet Take 100 mg by mouth as needed. - dilTIAZem CD (CARDIZEM CD, CARTIA XT) 240 mg 24 hr capsule Take 1 capsule by mouth once daily. - aspirin, enteric coated (ECOTRIN LOW STRENGTH) 81 mg EC tablet Take 81 mg by mouth once daily. - atorvastatin (LIPITOR) 20 mg tablet Take 1 tablet by mouth once daily. - triamcinolone acetonide (NASACORT NASAL) Use in the nose. - fexofenadine (SHANNAN) 180 mg tablet Take 180 mg by mouth once daily. - calcium carbonate (TUMS ORAL) Take 2 tablets by mouth as needed. - hydroCHLOROthiazide (HYDRODIURIL, ESIDRIX) 12.5 mg tablet Take 12.5 mg by mouth twice daily. - melatonin 3 mg capsules Take 3 mg by mouth at bedtime as needed. - potassium chloride (K-TAB) 10 mEq tablet Take 10 mEq by mouth once daily. - metoprolol tartrate, short acting, (LOPRESSOR) 100 mg tablet Take 100 mg by mouth twice daily. Agricultural Economist: Addendum Therapy (PT/OT/Speech/Resp) ID: [id number] 12/27/2024 9:54 AM Author: PUSHPA WILLIAMSON Signed by PUSHPA WILLIAMSON MANAGER ACQUISITION on 12/27/2024 at 9:54 AM * * * This document replaces document [id number] * * * Document text: Program_ID:[id number] Access Code: [email or web address] URL: [email or web address] Date: 12-27-2024 Prepared By: John Ornelas Program Notes Exercises - Seated Shoulder Flexion AAROM with Joseph Behind - 1 x daily - 7 x weekly - 3 sets - 10 reps - Standing Shoulder External Rotation AAROM with Dowel - 1 x daily - 7 x weekly - 3 sets - 10 reps - Standing Shoulder Scaption - 1 x daily - 7 x weekly - 3 sets - 10 reps - Sidelying Shoulder External Rotation - 1 x daily - 7 x weekly - 3 sets - 10 reps - Standing Isometric Shoulder Internal Rotation at Doorway - 1 x daily - 7 x weekly - 2 sets - 5 reps - Standing Isometric Shoulder External Rotation with Doorway - 1 x daily - 7 x weekly - 2 sets - 5 reps - Standing Isometric Shoulder Flexion with Doorway - Arm Bent - 1 x daily - 7 x weekly - 2 sets - 5 reps - Standing Isometric Shoulder Abduction with Doorway - Arm Bent - 1 x daily - 7 x weekly - 2 sets - 5 reps [facility] THERAPY NTon 12-27-2024 THERAPY NT HNO ID: [id number] Author: PUSHPA WILLIAMSON PTA Service: ? Author Type: Insurance Rater Type: Therapy (PT/OT/Speech/Resp) Filed: 12/27/2024 09:54 Note Text: Program_ID:[id number] Access Code: [email or web address] URL: [email or web address] Date: 12-27-2024 Prepared By: John Ornelas Program Notes Exercises - Seated Shoulder Flexion AAROM with Joseph Behind - 1 x daily - 7 x weekly - 3 sets - 10 reps - Standing Shoulder External Rotation AAROM with Dowel - 1 x daily - 7 x weekly - 3 sets - 10 reps - Standing Shoulder Scaption - 1 x daily - 7 x weekly - 3 sets - 10 reps - Sidelying Shoulder External Rotation - 1 x daily - 7 x weekly - 3 sets - 10 reps - Standing Isometric Shoulder Internal Rotation at Doorway - 1 x daily - 7 x weekly - 2 sets - 5 reps - Standing Isometric Shoulder External Rotation with Doorway - 1 x daily - 7 x weekly - 2 sets - 5 reps - Standing Isometric Shoulder Flexion with Doorway - Arm Bent - 1 x daily - 7 x weekly - 2 sets - 5 reps - Standing Isometric Shoulder Abduction with Doorway - Arm Bent - 1 x daily - 7 x weekly - 2 sets - 5 reps [facility] CNOVon 12-23-2024 CNOV Office Visit (PODIWS ) -------- ANDREA PIEDRA ([id number]) 1960 M Date Time Provider Department 12/23/24 9:00 AM SANDEEP IQBAL During your visit today, we recorded the following information about you: Verona Gama LPN 12/23/2024 9:27 AM Signed AMB ROOMING INTAKE FLOWSHEET DATA Pain Pain Level: 6 Pain Location: Foot-Left Description: Sharp, Dull, Throbbing, Stabbing Duration Amount of Time: 4 Duration Units: Months Frequency: Intermittent Intervention/Comfort measure: Reposition, Relaxation Patient presents with: Left Foot - New, Pain, Swelling Left Ankle - New, Pain, Swelling Verona DANN Gama Sandeep 12/23/2024 9:23 AM Addendum Powerstep Original Full length. Can purchase at [facility] [employer] and boots,shoes and more here in [place], [employer] in [place] or [place]. Also can find in [place] in [facility]. Powersteps can also be purchased online, starting around $45.00 If you have a metatarsal or dancer pad for your feet apply the pad directly to the insole so you can interchange between your shoes. Find a shoe with a removable insole and take this out and replace with your powerstep insole. Always bring powersteps with you when shopping for shoes so that you can make sure that everything fits well together - Before getting out of bed each morning, pull your toes toward your nose and hold for about 45 seconds; repeat 2-3 times. - Perform calf stretches three times a day (morning, afternoon, evening) and before bed: Wall push-up stretch with feet slightly turned inward Heel-drop stretch standing on a step - Wear supportive lace-up sneakers (such as [employer] [place] or Ghost, Hoka, Asics, or New Balance) instead of slip-on shoes. - Place the provided arch-support inserts in your shoes every day. - Use the night splint supplied to keep your foot stretched while you sleep. - Ice your heel as needed (for example, roll a frozen water bottle under your foot) when pain flares. - If heel pain persists despite these measures, you may consider a corticosteroid injection into the heel; let us know if you?d like to proceed. - An MRI of your left ankle has been ordered to evaluate the soft tissue swelling and the plantar fascia. Sandeep Iqbal 12/23/2024 9:27 AM Signed Consultation requested by Dr. Ward for an opinion regarding left heel pain. My final recommendations will be communicated back to the requesting physician by way of shared Medical record or letter to requesting physician via US mail. Subjective Jamir Piedra is a 64-year-old male with a history of atrial fibrillation, presenting for evaluation of left heel and ankle pain. Left Heel Pain: - Onset mid-September; described as "shooting and throbbing." - Pain localized to the heel and arch, worse upon waking and during the night. - Alleviated somewhat by ambulation. - Physical therapy provided temporary relief through massage and stretching exercises. - Jamir has used a frozen water bottle for icing, but limited by time constraints. - Denies taking any medication for the pain. Left Ankle Pain: - Chronic issue, with swelling and pain developing within an hour of waking. - Pain described as a "tight" sensation, particularly when performing calf raises. - Previous X-ray by Dr. Ward showed no acute abnormalities. - Noted to be "slowing me down," causing compensatory pain in the right knee. Musculoskeletal: (+) left heel pain worse in morning, (+) left arch pain, (+) left ankle pain, (+) left ankle swelling, (+) toe tightness PAST MEDICAL HISTORY Diagnosis Date Anticoagulant long-term use Arrhythmia At risk for stroke [id number] = 1 (HTN) Essential hypertension Essential hypertension Generalized anxiety disorder Hemorrhage of gastrointestinal tract, unspecified Hemorrhoids Paroxysmal atrial fibrillation (HCC) Rectal bleeding 09/2021 Sleep apnea does not use cpap. Snoring Current Outpatient Medications Medication Sig Dispense Refill iv contrast (will be provided with radiology test) MRI ankle LT Inject, intravenously, once for 1 dose. No IV access, insert saline lock prior to the beginning of sedation, infusion, injection of imaging exam. Discontinue saline lock post exam. If Pt. has a central line or IVAD, may access for administration according to line specific nursing protocol. Once exam is complete flush line and de-access according to line specific nursing protocol in the MR contrast administration guidelines link. 1 each 0 loratadine/pseudoephedri ne (CLARITIN-D 24 HOUR ORAL) Take 1 tablet by mouth once daily. benazepril (LOTENSIN) 20 mg tablet Take 1 tablet by mouth two times a day. 180 tablet 3 nystatin (MYCOSTATIN) 100,000 unit/mL suspension Take 5 mL by mouth four times daily. 1tsp swish in mouth for several minutes, then swallow (or expectorate) 4 times daily until gone. ( (more content not included)... [facility] XR FOOT 3V AP/LAT/OBL LTon 0 12-23-2024 XR FOOT 3V AP/LAT/OBL LT * * *Final Report* * * DATE OF EXAM: Dec 23 2024 9:01AM [id number] - XR FOOT 3V AP/LAT/OBL LT / PROCEDURE REASON: Pain in left foot * * * * Physician Interpretation * * * * Left foot HISTORY: 64 years old Clinical information: Pain in left foot PT STATES LEFT PLANTAR FOOT PAIN TECHNIQUE: Images: XR FOOT 3V AP/LAT/OBL LT Comparison: 01/25/2016. RESULT: Findings: There are calcaneal enthesophytes at the origin of the plantar fascia and insertion of the Achilles tendon. No evidence of fracture. Joint spaces are unremarkable. No soft tissue calcification. IMPRESSION: Calcaneal plantar and Achilles spurs which are minimally more prominent than on the previous study of 2015. Last Marker: PSCB Transcribe Date/Time: Dec 30 2024 2:47P Dictated by : KATRIN GUTIERREZ MD This examination was interpreted and the report reviewed and electronically signed by: KATRIN GUTIERREZ MD on Dec 30 2024 2:49PM EST [id number] [facility] CNTHERAPYon 12-21-2024 CNTHERAPY OT/PT/Speech Visit (PTWS) -------- ANDREA PIEDRA ([id number]) 1960 M Date Time Provider Department 12/21/24 10:15 AM PUSHPA WILLIAMSON PTWS Date Time Provider Department Center 12/21/2024 10:15 AM [id number] PTWS Yoanna Serena Reason for Visit: Physical Therapy [503] Primary Visit Diagnosis:Tendinitis of left shoulder [M77.8] Other Visit Diagnosis:Plantar fasciitis of left foot [M72.2] Allergies As of Date: 12/21/2024 Noted Allergy Reaction VICODIN (HYDROCODONE-ACETAMINOPH E*01/29/2007 1 - Mental Status Change Date Reviewed: 10/18/2024 Reviewed by: Maribell Robertson LPN - Fully Assessed Prescriptions as of 12/21/2024 - loratadine/pseudoephedri ne (CLARITIN-D 24 HOUR ORAL) Take 1 tablet by mouth once daily. - benazepril (LOTENSIN) 20 mg tablet Take 1 tablet by mouth two times a day. - nystatin (MYCOSTATIN) 100,000 unit/mL suspension Take 5 mL by mouth four times daily. 1tsp swish in mouth for several minutes, then swallow (or expectorate) 4 times daily until gone. - flecainide (TAMBOCOR) 100 mg tablet Take 100 mg by mouth as needed. - dilTIAZem CD (CARDIZEM CD, CARTIA XT) 240 mg 24 hr capsule Take 1 capsule by mouth once daily. - aspirin, enteric coated (ECOTRIN LOW STRENGTH) 81 mg EC tablet Take 81 mg by mouth once daily. - atorvastatin (LIPITOR) 20 mg tablet Take 1 tablet by mouth once daily. - triamcinolone acetonide (NASACORT NASAL) Use in the nose. - fexofenadine (SHANNAN) 180 mg tablet Take 180 mg by mouth once daily. - calcium carbonate (TUMS ORAL) Take 2 tablets by mouth as needed. - hydroCHLOROthiazide (HYDRODIURIL, ESIDRIX) 12.5 mg tablet Take 12.5 mg by mouth twice daily. - melatonin 3 mg capsules Take 3 mg by mouth at bedtime as needed. - potassium chloride (K-TAB) 10 mEq tablet Take 10 mEq by mouth once daily. - metoprolol tartrate, short acting, (LOPRESSOR) 100 mg tablet Take 100 mg by mouth twice daily. [facility] ANDREA PIEDRA ([id number]) 1960 Date Time Provider Department 12/08/24 ALAN WARD [facility] During your visit today, we recorded the following information about you: Alan Ward MD 12/08/2024 12:16 PM Signed Spoke with therapy. Its not helping, he would like to see podiatry. Please set up. Allergies As of Date: 12/08/2024 Noted Allergy Reaction VICODIN (HYDROCODONE-ACETAMINOPH E*01/29/2007 1 - Mental Status Change Date Reviewed: 10/18/2024 Reviewed by: Maribell Robertson LPN - Fully Assessed Reason for Visit: Patient Update [1234] Primary Visit Diagnosis:Plantar fasciitis [M72.2] Order(s):CONSULT TO PODIATRY [9034] Order #: [id number]: 1 FUTURE Prescriptions as of 12/29/2024 - loratadine/pseudoephedri ne (CLARITIN-D 24 HOUR ORAL) Take 1 tablet by mouth once daily. - benazepril (LOTENSIN) 20 mg tablet Take 1 tablet by mouth two times a day. - nystatin (MYCOSTATIN) 100,000 unit/mL suspension Take 5 mL by mouth four times daily. 1tsp swish in mouth for several minutes, then swallow (or expectorate) 4 times daily until gone. - flecainide (TAMBOCOR) 100 mg tablet Take 100 mg by mouth as needed. - dilTIAZem CD (CARDIZEM CD, CARTIA XT) 240 mg 24 hr capsule Take 1 capsule by mouth once daily. - aspirin, enteric coated (ECOTRIN LOW STRENGTH) 81 mg EC tablet Take 81 mg by mouth once daily. - atorvastatin (LIPITOR) 20 mg tablet Take 1 tablet by mouth once daily. - triamcinolone acetonide (NASACORT NASAL) Use in the nose. - fexofenadine (SHANNAN) 180 mg tablet Take 180 mg by mouth once daily. - calcium carbonate (TUMS ORAL) Take 2 tablets by mouth as needed. - hydroCHLOROthiazide (HYDRODIURIL, ESIDRIX) 12.5 mg tablet Take 12.5 mg by mouth twice daily. - melatonin 3 mg capsules Take 3 mg by mouth at bedtime as needed. - potassium chloride (K-TAB) 10 mEq tablet Take 10 mEq by mouth once daily. - metoprolol tartrate, short acting, (LOPRESSOR) 100 mg tablet Take 100 mg by mouth twice daily. Problem List As Of Date 12/08/2024 Noted Resolved Cervicalgia [M54.2] 08/21/2005 10/29/2012 Generalized Anxiety Disorder [F41.1] Essential hypertension [I10] Mixed hyperlipidemia [E78.2] 05/10/2008 Unspecified Sleep Apnea [G47.30] 09/09/2008 Routine general medical examination at [facility]*10/16/2009 02/10/2012 Class: Chronic Pain in joint, lower leg [M25.569] 02/20/2010 10/29/2012 Pain in joint, shoulder region [M25.519] 02/20/2010 10/29/2012 Palpitations [R00.2] 02/25/2012 03/28/2021 Hyperlipidemia [E78.5] 10/29/2012 09/26/2021 Backache, unspecified [M54.9] 12/03/2013 09/04/2016 Benign non-nodular prostatic hyperplasia withou*07/18/2016 Epididymal cyst [N50.3] 07/18/2016 10/21/2022 Paroxysmal atrial fibrillation (HCC) [I48.0] 09/25/2018 Hyperglycemia [R73.9] 03/27/2020 At risk for stroke [Z91.89] 05/01/2021 10/21/2022 Anticoagulant long-term use [Z79.01] 05/01/2021 03/08/2024 Obesity, Class I, BMI 30-34.9 [E66.811] 05/02/2021 Special screening examination for viral disease*09/26/2021 09/26/2021 Diarrhea [R19.7] 03/29/2022 10/21/2022 Pure hypercholesterolemia, unspecified [E78.00] 07/13/2021 03/04/2023 Benign paroxysmal positional vertigo [H81.10] 12/20/2022 Tendinitis of shoulder [M77.8] 03/31/2024 Acute right-sided low back pain without sciatic*03/31/2024 Plantar fasciitis of left foot [M72.2] 10/25/2024 Encounter Status:Closed by ALAN WARD on 12/29/24 [facility] CNTHERAPYon 12-07-2024 CNTHERAPY OT/PT/Speech Visit (PTWS) -------- ANDREA PIEDRA ([id number]) 1960 M Date Time Provider Department 12/07/24 9:15 AM JOHN ORNELAS PTWS Date Time Provider Department [place] 12/07/2024 9:15 AM [id number], SEAN PTWS Yoanna Dorsey Reason for Visit: PT Progress Note [1596] Primary Visit Diagnosis:Tendinitis of left shoulder [M77.8] Other Visit Diagnosis:Plantar fasciitis of left foot [M72.2] Allergies As of Date: 12/07/2024 Noted Allergy Reaction VICODIN (HYDROCODONE-ACETAMINOPH E*01/29/2007 1 - Mental Status Change Date Reviewed: 10/18/2024 Reviewed by: Maribell Robertson LPN - Fully Assessed Prescriptions as of 12/09/2024 - loratadine/pseudoephedri ne (CLARITIN-D 24 HOUR ORAL) Take 1 tablet by mouth once daily. - benazepril (LOTENSIN) 20 mg tablet Take 1 tablet by mouth two times a day. - nystatin (MYCOSTATIN) 100,000 unit/mL suspension Take 5 mL by mouth four times daily. 1tsp swish in mouth for several minutes, then swallow (or expectorate) 4 times daily until gone. - flecainide (TAMBOCOR) 100 mg tablet Take 100 mg by mouth as needed. - dilTIAZem CD (CARDIZEM CD, CARTIA XT) 240 mg 24 hr capsule Take 1 capsule by mouth once daily. - aspirin, enteric coated (ECOTRIN LOW STRENGTH) 81 mg EC tablet Take 81 mg by mouth once daily. - atorvastatin (LIPITOR) 20 mg tablet Take 1 tablet by mouth once daily. - triamcinolone acetonide (NASACORT NASAL) Use in the nose. - fexofenadine (SHANNAN) 180 mg tablet Take 180 mg by mouth once daily. - calcium carbonate (TUMS ORAL) Take 2 tablets by mouth as needed. - hydroCHLOROthiazide (HYDRODIURIL, ESIDRIX) 12.5 mg tablet Take 12.5 mg by mouth twice daily. - melatonin 3 mg capsules Take 3 mg by mouth at bedtime as needed. - potassium chloride (K-TAB) 10 mEq tablet Take 10 mEq by mouth once daily. - metoprolol tartrate, short acting, (LOPRESSOR) 100 mg tablet Take 100 mg by mouth twice daily. Agricultural Economist: Addendum Therapy (PT/OT/Speech/Resp) ID: [id number] 12/07/2024 9:56 AM Author: JOHN ORNELAS Signed by JOHN ORNELAS PT on 12/07/2024 at 9:56 AM * * * This document replaces document [id number] * * * Document text: Program_ID:[id number] Access Code: [email or web address] URL: [email or web address] Date: 12-07-2024 Prepared By: John Ornelas Program Notes Exercises - Seated Shoulder Flexion AAROM with Joseph Behind - 1 x daily - 7 x weekly - 3 sets - 10 reps - Standing Shoulder External Rotation AAROM with Dowel - 1 x daily - 7 x weekly - 3 sets - 10 reps - Standing Shoulder Scaption - 1 x daily - 7 x weekly - 3 sets - 10 reps - Sidelying Shoulder External Rotation - 1 x daily - 7 x weekly - 3 sets - 10 reps [facility] THERAPY NTon 12-07-2024 THERAPY NT HNO ID: [id number] Author: JOHN ORNELAS PT Service: ? Author Type: Physical Therapist Type: Therapy (PT/OT/Speech/Resp) Filed: 12/07/2024 09:56 Note Text: Program_ID:[id number] Access Code: [email or web address] URL: [email or web address] Date: 12-07-2024 Prepared By: John Ornelas Program Notes Exercises - Seated Shoulder Flexion AAROM with Joseph Behind - 1 x daily - 7 x weekly - 3 sets - 10 reps - Standing Shoulder External Rotation AAROM with Dowel - 1 x daily - 7 x weekly - 3 sets - 10 reps - Standing Shoulder Scaption - 1 x daily - 7 x weekly - 3 sets - 10 reps - Sidelying Shoulder External Rotation - 1 x daily - 7 x weekly - 3 sets - 10 reps [facility] CNTHERAPYon 12-02-2024 CNTHERAPY OT/PT/Speech Visit (PTWS) -------- ANDREA PIEDRA ([id number]) 1960 M Date Time Provider Department 12/02/24 9:30 AM PUSHPA WILLIAMSON Date Time Provider Department Center 12/02/2024 9:30 AM [id number] WILLIAMSON Reason for Visit: Physical Therapy [503] Primary Visit Diagnosis:Tendinitis of left shoulder [M77.8] Other Visit Diagnosis:Plantar fasciitis of left foot [M72.2] Allergies As of Date: 12/02/2024 Noted Allergy Reaction VICODIN (HYDROCODONE-ACETAMINOPH E*01/29/2007 1 - Mental Status Change Date Reviewed: 10/18/2024 Reviewed by: Maribell Robertson LPN - Fully Assessed Prescriptions as of 12/03/2024 - loratadine/pseudoephedri ne (CLARITIN-D 24 HOUR ORAL) Take 1 tablet by mouth once daily. - benazepril (LOTENSIN) 20 mg tablet Take 1 tablet by mouth two times a day. - nystatin (MYCOSTATIN) 100,000 unit/mL suspension Take 5 mL by mouth four times daily. 1tsp swish in mouth for several minutes, then swallow (or expectorate) 4 times daily until gone. - flecainide (TAMBOCOR) 100 mg tablet Take 100 mg by mouth as needed. - dilTIAZem CD (CARDIZEM CD, CARTIA XT) 240 mg 24 hr capsule Take 1 capsule by mouth once daily. - aspirin, enteric coated (ECOTRIN LOW STRENGTH) 81 mg EC tablet Take 81 mg by mouth once daily. - atorvastatin (LIPITOR) 20 mg tablet Take 1 tablet by mouth once daily. - triamcinolone acetonide (NASACORT NASAL) Use in the nose. - fexofenadine (SHANNAN) 180 mg tablet Take 180 mg by mouth once daily. - calcium carbonate (TUMS ORAL) Take 2 tablets by mouth as needed. - hydroCHLOROthiazide (HYDRODIURIL, ESIDRIX) 12.5 mg tablet Take 12.5 mg by mouth twice daily. - melatonin 3 mg capsules Take 3 mg by mouth at bedtime as needed. - potassium chloride (K-TAB) 10 mEq tablet Take 10 mEq by mouth once daily. - metoprolol tartrate, short acting, (LOPRESSOR) 100 mg tablet Take 100 mg by mouth twice daily. [facility] CNTHERAPYon 11-18-2024 CNTHERAPY OT/PT/Speech Visit (PTWS) -------- ANDREA PIEDRA ([id number]) 1960 M Date Time Provider Department 11/18/24 9:30 AM PUSHPA WILLIAMSON PTFOREIGN Date Time Provider Department Center 11/18/2024 9:30 AM [id number], MARIAH PTFOREIGN Yoanna Serena Reason for Visit: Physical Therapy [503] Primary Visit Diagnosis:Tendinitis of left shoulder [M77.8] Other Visit Diagnosis:Plantar fasciitis of left foot [M72.2] Allergies As of Date: 11/18/2024 Noted Allergy Reaction VICODIN (HYDROCODONE-ACETAMINOPH E*01/29/2007 1 - Mental Status Change Date Reviewed: 10/18/2024 Reviewed by: Maribell Robertson LPN - Fully Assessed Prescriptions as of 11/18/2024 - loratadine/pseudoephedri ne (CLARITIN-D 24 HOUR ORAL) Take 1 tablet by mouth once daily. - benazepril (LOTENSIN) 20 mg tablet Take 1 tablet by mouth two times a day. - LORazepam (ATIVAN) 0.5 mg Take 1 tablet by mouth three times a day as needed (anxiety) for up to 90 days. - nystatin (MYCOSTATIN) 100,000 unit/mL suspension Take 5 mL by mouth four times daily. 1tsp swish in mouth for several minutes, then swallow (or expectorate) 4 times daily until gone. - flecainide (TAMBOCOR) 100 mg tablet Take 100 mg by mouth as needed. - dilTIAZem CD (CARDIZEM CD, CARTIA XT) 240 mg 24 hr capsule Take 1 capsule by mouth once daily. - aspirin, enteric coated (ECOTRIN LOW STRENGTH) 81 mg EC tablet Take 81 mg by mouth once daily. - atorvastatin (LIPITOR) 20 mg tablet Take 1 tablet by mouth once daily. - triamcinolone acetonide (NASACORT NASAL) Use in the nose. - fexofenadine (SHANNAN) 180 mg tablet Take 180 mg by mouth once daily. - calcium carbonate (TUMS ORAL) Take 2 tablets by mouth as needed. - hydroCHLOROthiazide (HYDRODIURIL, ESIDRIX) 12.5 mg tablet Take 12.5 mg by mouth twice daily. - melatonin 3 mg capsules Take 3 mg by mouth at bedtime as needed. - potassium chloride (K-TAB) 10 mEq tablet Take 10 mEq by mouth once daily. - metoprolol tartrate, short acting, (LOPRESSOR) 100 mg tablet Take 100 mg by mouth twice daily. [facility] CNTHERAPYon 11-11-2024 CNTHERAPY OT/PT/Speech Visit (PTWS) -------- ANDREA PIEDRA ([id number]) 1960 M Date Time Provider Department 11/11/24 9:30 AM PUSHPA WILLIAMSON PTWS Date Time Provider Department Center 11/11/2024 9:30 AM [id number], MARIAH PTWS Yoanna Dorsey Reason for Visit: Physical Therapy [503] Primary Visit Diagnosis:Tendinitis of left shoulder [M77.8] Other Visit Diagnosis:Plantar fasciitis of left foot [M72.2] Allergies As of Date: 11/11/2024 Noted Allergy Reaction VICODIN (HYDROCODONE-ACETAMINOPH E*01/29/2007 1 - Mental Status Change Date Reviewed: 10/18/2024 Reviewed by: Maribell Robertson LPN - Fully Assessed Prescriptions as of 11/11/2024 - loratadine/pseudoephedri ne (CLARITIN-D 24 HOUR ORAL) Take 1 tablet by mouth once daily. - benazepril (LOTENSIN) 20 mg tablet Take 1 tablet by mouth two times a day. - LORazepam (ATIVAN) 0.5 mg Take 1 tablet by mouth three times a day as needed (anxiety) for up to 90 days. - nystatin (MYCOSTATIN) 100,000 unit/mL suspension Take 5 mL by mouth four times daily. 1tsp swish in mouth for several minutes, then swallow (or expectorate) 4 times daily until gone. - flecainide (TAMBOCOR) 100 mg tablet Take 100 mg by mouth as needed. - dilTIAZem CD (CARDIZEM CD, CARTIA XT) 240 mg 24 hr capsule Take 1 capsule by mouth once daily. - aspirin, enteric coated (ECOTRIN LOW STRENGTH) 81 mg EC tablet Take 81 mg by mouth once daily. - atorvastatin (LIPITOR) 20 mg tablet Take 1 tablet by mouth once daily. - triamcinolone acetonide (NASACORT NASAL) Use in the nose. - fexofenadine (SHANNAN) 180 mg tablet Take 180 mg by mouth once daily. - calcium carbonate (TUMS ORAL) Take 2 tablets by mouth as needed. - hydroCHLOROthiazide (HYDRODIURIL, ESIDRIX) 12.5 mg tablet Take 12.5 mg by mouth twice daily. - melatonin 3 mg capsules Take 3 mg by mouth at bedtime as needed. - potassium chloride (K-TAB) 10 mEq tablet Take 10 mEq by mouth once daily. - metoprolol tartrate, short acting, (LOPRESSOR) 100 mg tablet Take 100 mg by mouth twice daily. [facility] CNTHERAPYon 10-25-2024 CNTHERAPY OT/PT/Speech Visit (PTWS) -------- ANDREA PIEDRA ([id number]) 1960 M Date Time Provider Department 10/25/24 9:00 AM JOHN ORNELAS Date Time Provider Department Center 10/25/2024 9:00 AM [id number], SEAN PTFOREIGN Dorsey Reason for Visit: PT Eval [747] Primary Visit Diagnosis:Tendinitis of shoulder, unspecified laterality [M77.8] Other Visit Diagnosis:Plantar fasciitis of left foot [M72.2] Allergies As of Date: 10/25/2024 Noted Allergy Reaction VICODIN (HYDROCODONE-ACETAMINOPH E*01/29/2007 1 - Mental Status Change Date Reviewed: 10/18/2024 Reviewed by: Maribell Robertson LPN - Fully Assessed Prescriptions as of 10/25/2024 - loratadine/pseudoephedri ne (CLARITIN-D 24 HOUR ORAL) Take 1 tablet by mouth once daily. - benazepril (LOTENSIN) 20 mg tablet Take 1 tablet by mouth two times a day. - LORazepam (ATIVAN) 0.5 mg Take 1 tablet by mouth three times a day as needed (anxiety) for up to 90 days. - nystatin (MYCOSTATIN) 100,000 unit/mL suspension Take 5 mL by mouth four times daily. 1tsp swish in mouth for several minutes, then swallow (or expectorate) 4 times daily until gone. - flecainide (TAMBOCOR) 100 mg tablet Take 100 mg by mouth as needed. - dilTIAZem CD (CARDIZEM CD, CARTIA XT) 240 mg 24 hr capsule Take 1 capsule by mouth once daily. - aspirin, enteric coated (ECOTRIN LOW STRENGTH) 81 mg EC tablet Take 81 mg by mouth once daily. - atorvastatin (LIPITOR) 20 mg tablet Take 1 tablet by mouth once daily. - triamcinolone acetonide (NASACORT NASAL) Use in the nose. - fexofenadine (SHANNAN) 180 mg tablet Take 180 mg by mouth once daily. - calcium carbonate (TUMS ORAL) Take 2 tablets by mouth as needed. - hydroCHLOROthiazide (HYDRODIURIL, ESIDRIX) 12.5 mg tablet Take 12.5 mg by mouth twice daily. - melatonin 3 mg capsules Take 3 mg by mouth at bedtime as needed. - potassium chloride (K-TAB) 10 mEq tablet Take 10 mEq by mouth once daily. - metoprolol tartrate, short acting, (LOPRESSOR) 100 mg tablet Take 100 mg by mouth twice daily. Agricultural Economist: Addendum Therapy (PT/OT/Speech/Resp) ID: [id number] 10/25/2024 9:36 AM Author: JOHN ORNELAS Signed by JOHN ORNELAS PT on 10/25/2024 at 9:36 AM * * * This document replaces document [id number] * * * Document text: Program_ID:[id number] Access Code: [email or web address] URL: [email or web address] Date: 10-25-2024 Prepared By: John Ornelas Program Notes Exercises - Seated Shoulder Flexion AAROM with Joseph Behind - 1 x daily - 7 x weekly - 3 sets - 10 reps - Standing Shoulder External Rotation AAROM with Dowel - 1 x daily - 7 x weekly - 3 sets - 10 reps - Standing Shoulder Scaption - 1 x daily - 7 x weekly - 3 sets - 10 reps - Sidelying Shoulder External Rotation - 1 x daily - 7 x weekly - 3 sets - 10 reps - Seated Plantar Fascia Stretch - 3 x daily - 7 x weekly - 1 sets - 3 reps - Long Sitting Plantar Fascia Stretch with Towel - 3 x daily - 7 x weekly - 1 sets - 3 reps [facility] THERAPY NTon 10-25-2024 THERAPY NT HNO ID: [id number] Author: JOHN ORNELAS PT Service: ? Author Type: Physical Therapist Type: Therapy (PT/OT/Speech/Resp) Filed: 10/25/2024 09:36 Note Text: Program_ID:[id number] Access Code: [email or web address] URL: [email or web address] Date: 10-25-2024 Prepared By: John Ornelas Program Notes Exercises - Seated Shoulder Flexion AAROM with Joseph Behind - 1 x daily - 7 x weekly - 3 sets - 10 reps - Standing Shoulder External Rotation AAROM with Dowel - 1 x daily - 7 x weekly - 3 sets - 10 reps - Standing Shoulder Scaption - 1 x daily - 7 x weekly - 3 sets - 10 reps - Sidelying Shoulder External Rotation - 1 x daily - 7 x weekly - 3 sets - 10 reps - Seated Plantar Fascia Stretch - 3 x daily - 7 x weekly - 1 sets - 3 reps - Long Sitting Plantar Fascia Stretch with Towel - 3 x daily - 7 x weekly - 1 sets - 3 reps [facility] CNOVon 10-18-2024 CNOV Office Visit (FAMPWS ) -------- ANDREA PIEDRA ([id number]) 1960 M Date Time Provider Department 10/18/24 2:40 PM ALAN WARD During your visit today, we recorded the following information about you: Pulse Blood pressure Weight 78/minute 122/70 103.9 kg Alan Ward MD 10/18/2024 3:06 PM Signed Patient presents with: Pain (foot): Left Anxiety HPI: Patient presents today for office visit for follow up. Had panic attacks and anxiety while out of town. Worries all the time when anything changes. He worries about taking meds. Discussed relaxation techniques. Discussed options of counseling. Discussed zoloft as an option. He will consider and let me know. When in [place]. Developed pain in his arch or heel. Worse when off the foot. No trauma. No redness or warmth. No swelling. No calf pain. Wearing arch support. MEDICATIONS: Current Outpatient Medications Medication Sig loratadine/pseudoephedri ne (CLARITIN-D 24 HOUR ORAL) Take 1 tablet by mouth once daily. benazepril (LOTENSIN) 20 mg tablet Take 1 tablet by mouth two times a day. LORazepam (ATIVAN) 0.5 mg Take 1 tablet by mouth three times a day as needed (anxiety) for up to 90 days. flecainide (TAMBOCOR) 100 mg tablet Take 100 mg by mouth as needed. dilTIAZem CD (CARDIZEM CD, CARTIA XT) 240 mg 24 hr capsule Take 1 capsule by mouth once daily. aspirin, enteric coated (ECOTRIN LOW STRENGTH) 81 mg EC tablet Take 81 mg by mouth once daily. atorvastatin (LIPITOR) 20 mg tablet Take 1 tablet by mouth once daily. triamcinolone acetonide (NASACORT NASAL) Use in the nose. calcium carbonate (TUMS ORAL) Take 2 tablets by mouth as needed. hydroCHLOROthiazide (HYDRODIURIL, ESIDRIX) 12.5 mg tablet Take 12.5 mg by mouth twice daily. melatonin 3 mg capsules Take 3 mg by mouth at bedtime as needed. potassium chloride (K-TAB) 10 mEq tablet Take 10 mEq by mouth once daily. metoprolol tartrate, short acting, (LOPRESSOR) 100 mg tablet Take 100 mg by mouth twice daily. nystatin (MYCOSTATIN) 100,000 unit/mL suspension Take 5 mL by mouth four times daily. 1tsp swish in mouth for several minutes, then swallow (or expectorate) 4 times daily until gone. (Patient not taking: Reported on 09/13/2024) fexofenadine (SHANNAN) 180 mg tablet Take 180 mg by mouth once daily. (Patient not taking: Reported on 09/13/2024) No current facility-administered medications for this visit. ALLERGIES: ALLERGIES Allergen Reactions Vicodin [Hydrocodon* Mental Status Change PAST MEDICAL HISTORY Diagnosis Date Anticoagulant long-term use Arrhythmia At risk for stroke [id number] = 1 (HTN) Essential hypertension Essential hypertension Generalized anxiety disorder Hemorrhage of gastrointestinal tract, unspecified Hemorrhoids Paroxysmal atrial fibrillation (HCC) Rectal bleeding 09/2021 Sleep apnea does not use cpap. Snoring PAST SURGICAL HISTORY Procedure Laterality Date COLONOSCOPY FLX DX W/COLLJ SPEC WHEN PFRMD 07/11/2008 Colonoscopy COLONOSCOPY FLX DX W/COLLJ SPEC WHEN PFRMD 05/26/2018 Colonoscopy ESOPHAGOGASTRODUODENOSCO PY TRANSORAL DIAGNOSTIC 05/26/2018 EGD ESOPHAGOGASTRODUODENOSCO PY TRANSORAL DIAGNOSTIC 04/02/2022 EYE SURGERY HX HEMORRHOID: RUBBERBAND, SINGLE/MULTIPLE 10/04/2021 HEMORRHOID;BAND LIGAT, SNGL/MUL 04/02/2022 HEMORRHOIDECTOMY INTERNAL RUBBER BAND LIGATIONS 05/26/2018 PROCEDURE RM-COLONSCOPY W/BX 04/02/2022 FAMILY HISTORY Problem Relation Age of Onset Heart Mother Valve Replacement COPD Mother other (history of smoking) Mother Hypertension Father Kidney failure Father kidney disease - on dialysis Heart disease Father heart valve problem Hypertension Sister Hyperlipidemia Sister other (sudden ) Brother other (sudden infant ) Brother Thyroid Son Prostate Cancer No Family History none Social History Tobacco Use Smoking status: Never Smokeless tobacco: Never Vaping Use Vaping status: Never Used Substance Use Topics Alcohol use: Yes Comment: very occasional Drug use: No Reviewed current medications, allergies, past medical history, surgical history, family history and social history today. REVIEW OF SYSTEMS All other reviewed and negative other than HPI. VITALS: BP 122/70 Pulse 78 Wt 103.9 kg (229 lb) SpO2 97% BMI 32.86 kg/m? Last 4 Encounter Wt Readings: Date: Wt: 10/18/2024 103.9 kg (229 lb) 09/17/2024 104.3 kg (230 lb) 09/09/2024 103 kg (227 lb 1.2 oz) 09/06/2024 103 kg (227 lb) PHYSICAL EXAMINATION: General appearance: Well appearing, alert, in no acute distress, well-hydrated, well nourished. Skin: Skin color, texture, turgor normal, no suspicious rashes or lesions Head: Normocephalic, no masses, lesions, tenderness or abnormalities Extremities: No deformities, edema, skin discoloration, clubbing or cyanosis. Good (more content not included)... [facility]AMWS[facility] -------- ANDREA PIEDRA ([id number]) 1960 M Date Time Provider Department 10/15/24 ALAN WARD [facility] During your visit today, we recorded the following information about you: Sandi Aquino MA 10/15/2024 9:32 AM Signed Scan on 10/14/2024 10:15 AM by Provider, JAYCEE Bergeron: Platelet count Allergies As of Date: 10/15/2024 Noted Allergy Reaction VICODIN (HYDROCODONE-ACETAMINOPH E*01/29/2007 1 - Mental Status Change Date Reviewed: 09/17/2024 Reviewed by: Sandi Aquino MA - Fully Assessed Reason for Visit: Results [95] Prescriptions as of 10/29/2024 - loratadine/pseudoephedri ne (CLARITIN-D 24 HOUR ORAL) Take 1 tablet by mouth once daily. - benazepril (LOTENSIN) 20 mg tablet Take 1 tablet by mouth two times a day. - LORazepam (ATIVAN) 0.5 mg Take 1 tablet by mouth three times a day as needed (anxiety) for up to 90 days. - nystatin (MYCOSTATIN) 100,000 unit/mL suspension Take 5 mL by mouth four times daily. 1tsp swish in mouth for several minutes, then swallow (or expectorate) 4 times daily until gone. - flecainide (TAMBOCOR) 100 mg tablet Take 100 mg by mouth as needed. - dilTIAZem CD (CARDIZEM CD, CARTIA XT) 240 mg 24 hr capsule Take 1 capsule by mouth once daily. - aspirin, enteric coated (ECOTRIN LOW STRENGTH) 81 mg EC tablet Take 81 mg by mouth once daily. - atorvastatin (LIPITOR) 20 mg tablet Take 1 tablet by mouth once daily. - triamcinolone acetonide (NASACORT NASAL) Use in the nose. - fexofenadine (SHANNAN) 180 mg tablet Take 180 mg by mouth once daily. - calcium carbonate (TUMS ORAL) Take 2 tablets by mouth as needed. - hydroCHLOROthiazide (HYDRODIURIL, ESIDRIX) 12.5 mg tablet Take 12.5 mg by mouth twice daily. - melatonin 3 mg capsules Take 3 mg by mouth at bedtime as needed. - potassium chloride (K-TAB) 10 mEq tablet Take 10 mEq by mouth once daily. - metoprolol tartrate, short acting, (LOPRESSOR) 100 mg tablet Take 100 mg by mouth twice daily. Problem List As Of Date 10/15/2024 Noted Resolved Cervicalgia [M54.2] 08/21/2005 10/29/2012 Generalized Anxiety Disorder [F41.1] Essential hypertension [I10] Mixed hyperlipidemia [E78.2] 05/10/2008 Unspecified Sleep Apnea [G47.30] 09/09/2008 Routine general medical examination at [facility]*10/16/2009 02/10/2012 Class: Chronic Pain in joint, lower leg [M25.569] 02/20/2010 10/29/2012 Pain in joint, shoulder region [M25.519] 02/20/2010 10/29/2012 Palpitations [R00.2] 02/25/2012 03/28/2021 Hyperlipidemia [E78.5] 10/29/2012 09/26/2021 Backache, unspecified [M54.9] 12/03/2013 09/04/2016 Benign non-nodular prostatic hyperplasia withou*07/18/2016 Epididymal cyst [N50.3] 07/18/2016 10/21/2022 Paroxysmal atrial fibrillation (HCC) [I48.0] 09/25/2018 Hyperglycemia [R73.9] 03/27/2020 At risk for stroke [Z91.89] 05/01/2021 10/21/2022 Anticoagulant long-term use [Z79.01] 05/01/2021 03/08/2024 Obesity, Class I, BMI 30-34.9 [E66.811] 05/02/2021 Special screening examination for viral disease*09/26/2021 09/26/2021 Diarrhea [R19.7] 03/29/2022 10/21/2022 Pure hypercholesterolemia, unspecified [E78.00] 07/13/2021 03/04/2023 Benign paroxysmal positional vertigo [H81.10] 12/20/2022 Tendinitis of shoulder [M77.8] 03/31/2024 Acute right-sided low back pain without sciatic*03/31/2024 Encounter Status:Closed by SANDI AQUINO on 10/29/24 [facility] 10-14-2024 Platelets (Bld) [#/Vol] 392 10*3/uL Normal 150-450 [facility] Comment on above: Performed By: #### L 100.0625 #### [facility] [address]ina Alvarez [place], [place], [address] Platelet countOrdered By: Lyssa Ward on 10-14-2024 Platelets (Bld) [#/Vol] 392 10*3/uL 150-450 [facility] CNOVon 09-17-2024 CNOV Office Visit (FAMPWS ) -------- ANDREA PIEDRA ([id number]) 1960 M Date Time Provider Department 09/17/24 9:00 AM ALAN WARD During your visit today, we recorded the following information about you: Temperature Pulse Blood pressure Weight 97.8 degrees 61/minute 116/72 104.3 kg Height 1.778 m Alan Ward MD 09/17/2024 9:15 AM Signed Patient presents with: Nasal Congestion Sore Throat HPI: Patient presents today for office visit for acute illness follow up. Seen in [facility] on 09/09/24 with complaints of sore throat. See note: Patient is a 64-year-old male who complains of sore throat that he has been experiencing for the past 4 days. Patient denies fever, chills, body aches, congestion, ear pain, cough or other illness symptoms. Patient states that he was seen by his primary care physician on Friday and at that time experienced no symptoms and states he was feeling in good health. Patient does have a 4-year-old grandson at home who does attend daycare. Patient states that he did develop influenza type A approximately 1 month ago and explains that his influenza symptoms did resolve after approximately 1 week. Rapid strep test was negative. Today complains of constant nasal congestion and drainage that started a couple days after being seen in [facility]. States the constant drainage is irritating back of his throat. Still with mild discomfort in throat. Thinking it's from the drainage. No sneezing. Slight cough with some production. Denies chest pain and shortness of breath. Denies any fever or body aches. No headaches. Has been taking Shannan regularly. Switched in the last couple days to Claritin. No relief with either med. Has not tried anything else OTC. Bp is well controlled. No palpitations. Still seeing cardiology. Moods are doing well. Aware of risks of benzo's. Use is prn. Oarrs done. No misuse or abuse. Tolerating meds. Has seen ortho Has appt in Feb MEDICATIONS: Current Outpatient Medications Medication Sig loratadine/pseudoephedri ne (CLARITIN-D 24 HOUR ORAL) Take 1 tablet by mouth once daily. benazepril (LOTENSIN) 20 mg tablet Take 1 tablet by mouth two times a day. LORazepam (ATIVAN) 0.5 mg Take 1 tablet by mouth three times a day as needed (anxiety) for up to 90 days. flecainide (TAMBOCOR) 100 mg tablet Take 100 mg by mouth as needed. dilTIAZem CD (CARDIZEM CD, CARTIA XT) 240 mg 24 hr capsule Take 1 capsule by mouth once daily. aspirin, enteric coated (ECOTRIN LOW STRENGTH) 81 mg EC tablet Take 81 mg by mouth once daily. atorvastatin (LIPITOR) 20 mg tablet Take 1 tablet by mouth once daily. triamcinolone acetonide (NASACORT NASAL) Use in the nose. calcium carbonate (TUMS ORAL) Take 2 tablets by mouth as needed. hydroCHLOROthiazide (HYDRODIURIL, ESIDRIX) 12.5 mg tablet Take 12.5 mg by mouth twice daily. melatonin 3 mg capsules Take 3 mg by mouth at bedtime as needed. potassium chloride (K-TAB) 10 mEq tablet Take 10 mEq by mouth once daily. metoprolol tartrate, short acting, (LOPRESSOR) 100 mg tablet Take 100 mg by mouth twice daily. nystatin (MYCOSTATIN) 100,000 unit/mL suspension Take 5 mL by mouth four times daily. 1tsp swish in mouth for several minutes, then swallow (or expectorate) 4 times daily until gone. (Patient not taking: Reported on 09/13/2024) fexofenadine (SHANNAN) 180 mg tablet Take 180 mg by mouth once daily. (Patient not taking: Reported on 09/13/2024) No current facility-administered medications for this visit. ALLERGIES: ALLERGIES Allergen Reactions Vicodin [Hydrocodon* Mental Status Change PAST MEDICAL HISTORY Diagnosis Date Anticoagulant long-term use Arrhythmia At risk for stroke [id number] = 1 (HTN) Essential hypertension Essential hypertension Generalized anxiety disorder Hemorrhage of gastrointestinal tract, unspecified Hemorrhoids Paroxysmal atrial fibrillation (HCC) Rectal bleeding 09/2021 Sleep apnea does not use cpap. Snoring PAST SURGICAL HISTORY Procedure Laterality Date COLONOSCOPY FLX DX W/COLLJ SPEC WHEN PFRMD 07/11/2008 Colonoscopy COLONOSCOPY FLX DX W/COLLJ SPEC WHEN PFRMD 05/26/2018 Colonoscopy ESOPHAGOGASTRODUODENOSCO PY TRANSORAL DIAGNOSTIC 05/26/2018 EGD ESOPHAGOGASTRODUODENOSCO PY TRANSORAL DIAGNOSTIC 04/02/2022 EYE SURGERY HX HEMORRHOID: RUBBERBAND, SINGLE/MULTIPLE 10/04/2021 HEMORRHOID;BAND LIGAT, SNGL/MUL 04/02/2022 HEMORRHOIDECTOMY INTERNAL RUBBER BAND LIGATIONS 05/26/2018 PROCEDURE RM-COLONSCOPY W/BX 04/02/2022 FAMILY HISTORY Problem Relation Age of Onset Heart Mother Valve Replacement COPD Mother other (history of smoking) Mother Hypertension Father Kidney failure Father kidney disease - on dialysis Heart disease Father heart valve problem Hypertension Sister Hyperlipidemia Sister other (sudden infan (more content not included)... [facility] CNOVon 09-13-2024 CNOV Office Visit (ORTHWS ) -------- ANDREA PIEDRA ([id number]) 1960 M Date Time Provider Department 09/13/24 8:15 AM ARMAND MCFADDEN During your visit today, we recorded the following information about you: Armand Mcfadden MD 09/13/2024 12:32 PM Signed Armand Mcfadden MD Department of Orthopaedics Orthopaedics [address] [place] [id number] Dept: [phone] Dept September 13, 2024 CHIEF COMPLAINT: New and Pain of the Left Shoulder and New and Pain of the Right Shoulder HPI Patient presents as referral from Dr. Ward for bilateral shoulder pain that has been worsening over the last year-year and a half. Right shoulder worse than left. Reaching up, reaching back, throwing, and pitting hands behind head makes the pain worse. Has tried PT with minimal improvement, also was on 5 days of Prednisone at the end of last month. Pain was worse last summer when he was more active. X-Rays done 03/08/24 AMB ROOMING INTAKE FLOWSHEET DATA Pain Pain Level: 2 (8/10 with certain movements) Pain Location: Other: See Comment (bilateral shoulders) Description: Burning, Sharp, Aching Duration Amount of Time: 1.5 Duration Units: Years Frequency: Intermittent Intervention/Comfort measure: Relaxation, Reposition ASSESSMENT: M25.511, G89.29, M25.512 Chronic pain of both shoulders (primary encounter diagnosis) M25.819 Shoulder impingement PLAN: Patient is presenting with impingement signs of both shoulders, right greater than left. Possibly result of some calcific tendinitis but is difficult to tell based on just plain films if the calcifications are acute or chronic. He reports that he is doing a little bit better, therefore he would like to try some therapy again. We did discuss possible cortisone injections which I would stagger based on his mild diabetes. Ultimately, MRIs may be appropriate but that does not appear to be indicated at this time. Will continue to monitor patient for Chronic pain of both shoulders (primary encounter diagnosis) Shoulder impingement, patient to schedule visit as per follow up discussed. FOLLOW UP INSTRUCTIONS: As above Mr. Andrea Piedra was advised as to contrast therapies and/or to take analgesics/anti-inflamma tories as needed and all contraindications were reviewed. OBJECTIVE: Mr. Andrea Piedra is a pleasant 64 year old in no apparent distress. Gen:There were no vitals taken for this visit. nl development, non obese, no deformities ENT: Normocephalic, normal hearing, moist mucosa CV: Pulses:Radial= 2+ and symmetric, capillary refill < 2 secs, no peripheral edema/varicosities Skin: no rash, bruising or lesions. Good turgor. Psych: cooperative and appropriate, alert and oriented x 3, good mood and affect. Musculoskeletal: Forward elevation was symmetrical in about 170 degrees with some mild tightness at endrange. External rotation of the right is about 60, on the left is 70. Positive impingement signs on the right and left. Positive tender palpation, mildly at the rotator cuff insertion right greater than left. Neurovascular exam is intact. IMAGING: IMPRESSION: Degenerative changes as described. Last Marker: VICENTA Transcribe Date/Time: Mar 10 2024 9:09P Dictated by : BRANDON PONCE MD This examination was interpreted and the report reviewed and electronically signed by: BRANDON PONCE MD on Mar 10 2024 9:10PM EST Results-Findings * * *Final Report* * * DATE OF EXAM: Mar 08 2024 11:26AM WOX [id number] - XR SHLDR >/=3V AP/VALERIA AP/OTHR RT / PROCEDURE REASON: Tendinitis of shoulder, unspecified laterality * * * * Physician Interpretation * * * * EXAMINATION / TECHNIQUE: XR SHLDR >/=3V AP/VALERIA AP/OTHR RT, XR SHLDR >/=3V AP/VALERIA AP/OTHR LT HISTORY: Bilateral lateral shoulder pain x 1 year without injury Tendinitis of shoulder, unspecified laterality COMPARISON: None. RESULT: No acute fracture or malalignment in either shoulder. The glenohumeral joint are preserved. 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 Insertional rotator cuff calcific tendinosis bilaterally. Supporting Subjective Information Below: Past Medical History: PAST MEDICAL HISTORY Diagnosis Date Anticoagulant long-term use Arrhythmia At risk for stroke [id number] = 1 (HTN) Essential hypertension Essential hypertension Generalized anxiety disorder Hemorrhage of gastrointestinal tract, unspecified Hemorrhoids Paroxysmal atrial fibrillation (HCC) Rectal bleeding 09/2021 Sleep apnea does not use cpap. Snoring Past Surgical History: PAST SURGICAL HISTORY Procedure Laterality Date COLONOSCOPY FLX DX W/COLLJ SPEC WHEN PFRMD 07/11/2008 Colonoscopy COLONOSCOPY FLX DX W/COLLJ SPEC WHEN PFRMD 05/26/2018 Colonoscopy ESOPHAGOGASTRODUODENOSCO PY TRANSORAL DIAGNOSTIC 05/26/2018 EGD E (more content not included)... [facility] CNOVon 09-09-2024 CNOV Office Visit (UCWSTR ) -------- ANDREA PIEDRA ([id number]) 1960 M Date Time Provider Department 09/09/24 7:00 AM KATRIN MELÉNDEZ [facility] During your visit today, we recorded the following information about you: Temperature Pulse Respiration Blood pressure 97 degrees 62/minute 20/minute 138/81 Weight 103 kg Katrin Meléndez PA-C 09/09/2024 7:24 AM Signed This note was created using KitchIn. Subjective Andrea Piedra is a 64 year old male. Patient is a 64-year-old male who complains of sore throat that he has been experiencing for the past 4 days. Patient denies fever, chills, body aches, congestion, ear pain, cough or other illness symptoms. Patient states that he was seen by his primary care physician on Friday and at that time experienced no symptoms and states he was feeling in good health. Patient does have a 4-year-old grandson at home who does attend daycare. Patient states that he did develop influenza type A approximately 1 month ago and explains that his influenza symptoms did resolve after approximately 1 week. Sore Throat Review of Systems HENT: Positive for sore throat. All other systems reviewed and are negative. Objective BP 138/81 Pulse 62 Temp 36.1 ?C (97 ?F) Resp 20 Wt 103 kg (227 lb 1.2 oz) SpO2 99% BMI 32.58 kg/m? Physical Exam Vitals and nursing note reviewed. Constitutional: Appearance: Normal appearance. He is normal weight. HENT: Head: Normocephalic and atraumatic. Right Ear: Tympanic membrane, ear canal and external ear normal. Left Ear: Tympanic membrane, ear canal and external ear normal. Nose: Nose normal. Mouth/Throat: Mouth: Mucous membranes are moist. Pharynx: Oropharynx is clear. Eyes: Extraocular Movements: Extraocular movements intact. Conjunctiva/sclera: Conjunctivae normal. Pupils: Pupils are equal, round, and reactive to light. Cardiovascular: Rate and Rhythm: Normal rate and regular rhythm. Pulses: Normal pulses. Heart sounds: Normal heart sounds. Pulmonary: Effort: Pulmonary effort is normal. Breath sounds: Normal breath sounds. Musculoskeletal: Cervical back: Normal range of motion and neck supple. Skin: General: Skin is warm and dry. Capillary Refill: Capillary refill takes less than 2 seconds. Neurological: General: No focal deficit present. Mental Status: He is alert and oriented to person, place, and time. Psychiatric: Mood and Affect: Mood normal. Behavior: Behavior normal. Thought Content: Thought content normal. Judgment: Judgment normal. Assessment and Plan Physical exam findings as noted above. Rapid strep test is negative. Supportive care instructions were discussed and the patient verbalizes good understanding of same. CLINICAL IMPRESSION: Sore Throat ASSESSMENT/PLAN: 1. Sore throat - ICD9: 462, ICD10: J02.9 - STREP A MOLECULAR (POC) JAYCEE Lagos Mark, PA-C 09/09/2024 7:22 AM Signed MIX HYDROGEN PEROXIDE 50% WITH WATER 50% AND GARGLE AND SPIT. DO NOT SWALLOW. REPEAT EVERY 4 HOURS. Allergies As of Date: 09/09/2024 Noted Allergy Reaction VICODIN (HYDROCODONE-ACETAMINOPH E*01/29/2007 1 - Mental Status Change Date Reviewed: 09/09/2024 Reviewed by: Anel Power LPN - Fully Assessed Reason for Visit: Sore Throat [200] Cmt: Nasal drainage x 4 days Primary Visit Diagnosis:Sore throat [J02.9] Order(s):STREP A MOLECULAR (POC) [[id number]] Order #: [id number]. #:[id number] Prescriptions as of 09/09/2024 - benazepril (LOTENSIN) 20 mg tablet Take 1 tablet by mouth two times a day. - LORazepam (ATIVAN) 0.5 mg Take 1 tablet by mouth three times a day as needed (anxiety) for up to 90 days. - nystatin (MYCOSTATIN) 100,000 unit/mL suspension Take 5 mL by mouth four times daily. 1tsp swish in mouth for several minutes, then swallow (or expectorate) 4 times daily until gone. - flecainide (TAMBOCOR) 100 mg tablet Take 100 mg by mouth as needed. - dilTIAZem CD (CARDIZEM CD, CARTIA XT) 240 mg 24 hr capsule Take 1 capsule by mouth once daily. - aspirin, enteric coated (ECOTRIN LOW STRENGTH) 81 mg EC tablet Take 81 mg by mouth once daily. - atorvastatin (LIPITOR) 20 mg tablet Take 1 tablet by mouth once daily. - triamcinolone acetonide (NASACORT NASAL) Use in the nose. - fexofenadine (SHANNAN) 180 mg tablet Take 180 mg by mouth once daily. - calcium carbonate (TUMS ORAL) Take 2 tablets by mouth as needed. - hydroCHLOROthiazide (HYDRODIURIL, ESIDRIX) 12.5 mg tablet Take 12.5 mg by mouth twice daily. - melatonin 3 mg capsules Take 3 mg by mouth at bedtime as needed. - potassium chloride (K-TAB) 10 mEq tablet Take 10 mEq by mouth once daily. - metoprolol tartrate, short acting, (LOPRESSOR) 100 mg tablet Take 100 mg by mouth twice daily. Problem List As Of Date 09/09/2024 Noted Resolved Cervicalgia [M54.2] 08/21/2005 10/29/2012 Generaliz (more content not included)... [facility] STREP A MOLECULAR (POC)on Procedural Control Valid [facility] Strep A (POCT) Negative Negative [facility] CNOVon 09-06-2024 CNOV Office Visit (FAMPWS ) -------- ANDREA PIEDRA ([id number]) 1960 M Date Time Provider Department 09/06/24 8:40 AM ALAN WARD During your visit today, we recorded the following information about you: Pulse Blood pressure Weight 76/minute 124/62 103 kg Alan Ward MD 09/06/2024 9:01 AM Signed Patient presents with: 6 Month Exam HPI: Patient presents today for office visit for follow up. HTN: BP well controlled. Denies chest pain or shortness of breath. Bp is well controlled. HYPERLIPIDEMIA: Patient is taking medications: Yes. Patient is watching diet: Yes. Patient denies myalgias: Yes. Patient denies gi upset: Yes Sees [facility] PSYCH:emotionally Is doing better. RAMSEY:still using cpap. Benefiting from its use. Sugars are ok. Platelets are likely to be ill. Latest Ref Rng 08/24/2024 09/02/2024 WBC 3.70 - 11.00 k/uL 7.72 RBC 4.20 - 6.00 m/uL 4.78 Hemoglobin 13.0 - 17.0 g/dL 13.4 Hematocrit 39.0 - 51.0 % 42.3 MCV 80.0 - 100.0 fL 88.5 MCH 26.0 - 34.0 pg 28.0 MCHC 30.5 - 36.0 g/dL 31.7 RDW-CV 11.5 - 15.0 % 14.1 Platelet Count 150 - 400 k/uL 408 (H) MPV 9.0 - 12.7 fL 10.0 Neut% % 57.4 Abs Neut (ANC) 1.45 - 7.50 k/uL 4.43 Lymph% % 24.5 Abs Lymph 1.00 - 4.00 k/uL 1.89 [place]% % 12.8 Abs [place] <0.87 k/uL 0.99 (H) Eosin% % 3.9 Abs Eosin <0.46 k/uL 0.30 Baso% % 1.3 Abs Baso <0.11 k/uL 0.10 Immature Gran % % 0.1 IMMATURE GRANS (ABS) <0.10 k/uL <0.03 NRBC /100 WBC 0.0 Absolute nRBC <0.01 k/uL <0.01 DTYPE Auto Protein, Total 6.3 - 8.0 g/dL 7.7 Albumin 3.9 - 4.9 g/dL 4.4 Calcium 8.5 - 10.2 mg/dL 9.8 Bilirubin, Total 0.2 - 1.3 mg/dL 0.3 Alkaline Phosphatase 38 - 113 U/L 91 AST 14 - 40 U/L 24 ALT 10 - 54 U/L 27 Glucose 74 - 99 mg/dL 91 BUN 9 - 24 mg/dL 15 Creatinine 0.73 - 1.22 mg/dL 0.81 Sodium 136 - 144 mmol/L 139 Potassium 3.7 - 5.1 mmol/L 4.6 Chloride 98 - 107 mmol/L 102 CO2 22 - 30 mmol/L 26 Anion Gap 8 - 15 mmol/L 11 eGFR >=60 mL/min/1.73m? 99 Cholesterol, Total <200 mg/dL 140 Triglyceride <150 mg/dL 189 (H) HDL Cholesterol >39 mg/dL 38 (L) Non HDL Cholesterol <130 mg/dL 102 Fasting Time hrs 12 VLDL Cholesterol <30 mg/dL 38 (H) TC:HDL Ratio <5.10 3.68 LDL Cholesterol <100 mg/dL 64 LDL:HDL Ratio <2.54 1.68 Hemoglobin A1C 4.3 - 5.6 % 6.1 (H) Estimated Average Glucose mg/dL 128 Culture Rare Priscila albicans ! Legend: ! Abnormal (H) High (L) Low MEDICATIONS: Current Outpatient Medications Medication Sig benazepril (LOTENSIN) 20 mg tablet Take 1 tablet by mouth two times a day. LORazepam (ATIVAN) 0.5 mg Take 1 tablet by mouth three times a day as needed (anxiety) for up to 90 days. nystatin (MYCOSTATIN) 100,000 unit/mL suspension Take 5 mL by mouth four times daily. 1tsp swish in mouth for several minutes, then swallow (or expectorate) 4 times daily until gone. flecainide (TAMBOCOR) 100 mg tablet Take 100 mg by mouth as needed. dilTIAZem CD (CARDIZEM CD, CARTIA XT) 240 mg 24 hr capsule Take 1 capsule by mouth once daily. aspirin, enteric coated (ECOTRIN LOW STRENGTH) 81 mg EC tablet Take 81 mg by mouth once daily. atorvastatin (LIPITOR) 20 mg tablet Take 1 tablet by mouth once daily. triamcinolone acetonide (NASACORT NASAL) Use in the nose. fexofenadine (SHANNAN) 180 mg tablet Take 180 mg by mouth once daily. calcium carbonate (TUMS ORAL) Take 2 tablets by mouth as needed. hydroCHLOROthiazide (HYDRODIURIL, ESIDRIX) 12.5 mg tablet Take 12.5 mg by mouth twice daily. melatonin 3 mg capsules Take 3 mg by mouth at bedtime as needed. potassium chloride (K-TAB) 10 mEq tablet Take 10 mEq by mouth once daily. metoprolol tartrate, short acting, (LOPRESSOR) 100 mg tablet Take 100 mg by mouth twice daily. No current facility-administered medications for this visit. ALLERGIES: ALLERGIES Allergen Reactions Vicodin [Hydrocodon* Mental Status Change PAST MEDICAL HISTORY Diagnosis Date Anticoagulant long-term use Arrhythmia At risk for stroke [id number] = 1 (HTN) Essential hypertension Essential hypertension Generalized anxiety disorder Hemorrhage of gastrointestinal tract, unspecified Hemorrhoids Paroxysmal atrial fibrillation (HCC) Rectal bleeding 09/2021 Sleep apnea does not use cpap. Snoring PAST SURGICAL HISTORY Procedure Laterality Date COLONOSCOPY FLX DX W/COLLJ SPEC WHEN PFRMD 07/11/2008 Colonoscopy COLONOSCOPY FLX DX W/COLLJ SPEC WHEN PFRMD 05/26/2018 Colonoscopy ESOPHAGOGASTRODUODENOSCO PY TRANSORAL DIAGNOSTIC 05/26/2018 EGD ESOPHAGOGASTRODUODENOSCO PY TRANSORAL DIAGNOSTIC 04/02/2022 EYE SURGERY HX HEMORRHOID: RUBBERBAND, SINGLE/MULTIPLE 10/04/2021 HEMORRHOID;BAND LIGAT, SNGL/MUL 04/02/2022 HEMORRHOIDECTOMY INTERNAL RUBBER BAND LIGATIONS 05/26/2018 PROCEDURE RM-COLONSCOPY W/BX 04/02/2022 FAMILY HISTORY Problem Relation Age of Onset Heart Mother Valv (more content not included)... [facility] CBC W Auto Differential pane l (Bld)on 09-02-2024 Basophils (Bld) [#/Vol] 0.10 10*3/uL Normal <0.11 [facility] Comment on above: Order Comment: Speci men Type: BLOOD SPECIMENOrdering Facility: [facility] Address: [address] [place] [address] Performed By: #### 5 7021-8 ####[facility] LABCLIA [id number] [place] [address] [place] Basophils/100 WBC (Bld) 1.3 % [facility] Comment on above: Order Comment: Speci men Type: BLOOD SPECIMENOrdering Facility: [facility] Address: [address] [place] [address] Performed By: #### 5 7021-8 ####[facility] LABCLIA [id number] [place] [address] [place] Differential cell count method Nom (Bld) Auto [facility] Comment on above: Order Comment: Speci men Type: BLOOD SPECIMENOrdering Facility: [facility] Address: [address] [place] [address] Performed By: #### 5 7021-8 ####[facility] LABCLIA [id number] [place] [address] [place] Eosinophils (Bld) [#/Vol] 0.30 10*3/uL Normal <0.46 [facility] Comment on above: Order Comment: Speci men Type: BLOOD SPECIMENOrdering Facility: [facility] Address: [address] [place] [address] Performed By: #### 5 7021-8 ####[facility] LABCLIA [id number] [place] [id number] [place] Eosinophils/100 WBC (Bld) 3.9 % [facility] Comment on above: Order Comment: Speci men Type: BLOOD SPECIMENOrdering Facility: [facility] Address: [address] [place] [address] Performed By: #### 5 7021-8 ####[facility] LABCLIA [id number] [place] [address] [place] Erythrocyte distribution width (RBC) [Ratio] 14.1 % Normal 11.5-15.0 [facility] Comment on above: Order Comment: Speci men Type: BLOOD SPECIMENOrdering Facility: [facility] Address: [address] [place] [address] Performed By: #### 5 7021-8 ####[facility] LABCLIA [id number] [place] [address] [place] Hematocrit (Bld) [Volume fraction] 42.3 % Normal 39.0-51.0 [facility] Comment on above: Order Comment: Speci men Type: BLOOD SPECIMENOrdering Facility: [facility] Address: [address] [place] [address] Performed By: #### 5 7021-8 ####[facility] LABCLIA [id number] [place] [id number] [place] Hemoglobin (Bld) [Mass/Vol] 13.4 g/dL Normal 13.0-17.0 [facility] Comment on above: Order Comment: Speci men Type: BLOOD SPECIMENOrdering Facility: [facility] Address: [address] [place] [address] Performed By: #### 5 7021-8 ####[facility] LABCLIA [id number] [place] [id number] [place] Immature granulocytes (Bld) [#/Vol] 10*3/uL Normal <0.10 [facility] Comment on above: Order Comment: Speci men Type: BLOOD SPECIMENOrdering Facility: [facility] Address: [address] [place] [address] Performed By: #### 5 7021-8 ####[facility] LABCLIA [id number] [place] [address] [place] Immature granulocytes/100 WBC (Bld) 0.1 % [facility] Comment on above: Order Comment: Speci men Type: BLOOD SPECIMENOrdering Facility: [facility] Address: [address] [place] [address] Performed By: #### 5 7021-8 ####[facility] LABCLIA [id number] [place] [address] [place] Lymphocytes (Bld) [#/Vol] 1.89 10*3/uL Normal 1.00-4.00 [facility] Comment on above: Order Comment: Speci men Type: BLOOD SPECIMENOrdering Facility: [facility] Address: [address] [place] [address] Performed By: #### 5 7021-8 ####[facility] LABCLIA [id number] [place] [address] [place] Lymphocytes/100 WBC (Bld) 24.5 % [facility] Comment on above: Order Comment: Speci men Type: BLOOD SPECIMENOrdering Facility: [facility] Address: [address] [place] [address] Performed By: #### 5 7021-8 ####[facility] LABCLIA [id number] [place] [address] [place] MCH (RBC) [Entitic mass] 28.0 pg Normal 26.0-34.0 [facility] Comment on above: Order Comment: Speci men Type: BLOOD SPECIMENOrdering Facility: [facility] Address: [address] [place] [address] Performed By: #### 5 7021-8 ####[facility] LABCLIA [id number] [place] [address] [place] MCHC (RBC) [Mass/Vol] 31.7 g/dL Normal 30.5-36.0 [facility] Comment on above: Order Comment: Speci men Type: BLOOD SPECIMENOrdering Facility: [facility] Address: [address] [place] [address] Performed By: #### 5 7021-8 ####[facility] LABCLIA [id number] [place] [address] [place] MCV (RBC) [Entitic vol] 88.5 fL Normal 80.0-100.0 [facility] Comment on above: Order Comment: Speci men Type: BLOOD SPECIMENOrdering Facility: [facility] Address: [address] [place] [address] Performed By: #### 5 7021-8 ####[facility] LABIA [id number] [place] [address] [place] Monocytes (Bld) [#/Vol] 0.99 10*3/uL High <0.87 [facility] Comment on above: Order Comment: Speci men Type: BLOOD SPECIMENOrdering Facility: [facility] Address: [address] [place] [address] Performed By: #### 5 7021-8 ####[facility] LABCLIA [id number] [place] [address] [place] Monocytes/100 WBC (Bld) 12.8 % [facility] Comment on above: Order Comment: Speci men Type: BLOOD SPECIMENOrdering Facility: [facility] Address: [address] [place] [address] Performed By: #### 5 7021-8 ####[facility] LABCLIA [id number] [address] [address] [place] Neutrophils (Bld) [#/Vol] 4.43 10*3/uL Normal 1.45-7.50 [facility] Comment on above: Order Comment: Speci men Type: BLOOD SPECIMENOrdering Facility: [facility] Address: [address] [place] [address] Performed By: #### 5 7021-8 ####[facility] LABCLIA [id number] [place] [address] [place] Neutrophils/100 WBC (Bld) 57.4 % [facility] Comment on above: Order Comment: Speci men Type: BLOOD SPECIMENOrdering Facility: [facility] Address: [address] [place] [address] Performed By: #### 5 7021-8 ####[facility] LABCLIA [id number] [place] [address] [place] Nucleated RBC (Bld) [#/Vol] 10*3/uL Normal <0.01 [facility] Comment on above: Order Comment: Speci men Type: BLOOD SPECIMENOrdering Facility: [facility] Address: [address] [place] [address] Performed By: #### 5 7021-8 ####[facility] LABCLIA [id number] [place] [address] [place] Nucleated RBC/100 WBC (Bld) [Ratio] 0.0 /100 WBC Normal [facility] Comment on above: Order Comment: Speci men Type: BLOOD SPECIMENOrdering Facility: [facility] Address: [address] [place] [address] Performed By: #### 5 7021-8 ####[facility] LABCLIA [id number] [place] [id number] [place] Platelet mean volume (Bld) [Entitic vol] 10.0 fL Normal 9.0-12.7 [facility] Comment on above: Order Comment: Speci men Type: BLOOD SPECIMENOrdering Facility: [facility] Address: [address] [place] [address] Performed By: #### 5 7021-8 ####[facility] LABCLIA [id number] [address] [place] [address] [place] Platelets (Bld) [#/Vol] 408 10*3/uL High 150-400 [facility] Comment on above: Order Comment: Speci men Type: BLOOD SPECIMENOrdering Facility: [facility] Address: [address] [place] [address] Performed By: #### 5 7021-8 ####[facility] LABCLIA [id number] [address] [place] [address] [place] RBC (Bld) [#/Vol] 4.78 10*6/uL Normal 4.20-6.00 [facility] Comment on above: Order Comment: Speci men Type: BLOOD SPECIMENOrdering Facility: [facility] Address: [address] [place] [address] Performed By: #### 5 7021-8 ####[facility] LABCLIA [id number] [address] [address] [place] WBC (Bld) [#/Vol] 7.72 10*3/uL Normal 3.70-11.00 [facility] Comment on above: Order Comment: Speci men Type: BLOOD SPECIMENOrdering Facility: [facility] Address: [address] [place] [address] Performed By: #### 5 7021-8 ####[facility] LABCLIA [id number] [address] [address] [place] Comprehensive metabolic 2000 panelon 09-02-2024 Albumin [Mass/Vol] 4.4 g/dL Normal 3.9-4.9 [facility] Comment on above: Order Comment: Speci men Type: BLOOD SPECIMENOrdering Facility: [facility] Address: [address] [id number] Performed By: #### 2 4323-8, 34718-2 ####[facility] LABCLIA [id number] [place] [address] [place] ALP [Catalytic activity/Vol] 91 U/L Normal 38-113 [facility] Comment on above: Order Comment: Speci men Type: BLOOD SPECIMENOrdering Facility: [facility] Address: [address] [place] [address] Performed By: #### 2 4323-8, 42074-9 ####[facility] LABCLIA [id number] [place] [address] [place] ALT [Catalytic activity/Vol] 27 U/L Normal 10-54 [facility] Comment on above: Order Comment: Speci men Type: BLOOD SPECIMENOrdering Facility: [facility] Address: [address] [place] [address] Performed By: #### 2 4323-8, 59737-3 ####[facility] LABCLIA [id number] [place] [address] [place] Anion gap [Moles/Vol] 11 mmol/L Normal 8-15 [facility] Comment on above: Order Comment: Speci men Type: BLOOD SPECIMENOrdering Facility: [facility] Address: [address] [place], [place] [address] Performed By: #### 2 4323-8, 98306-4 ####[facility] LABCLIA [id number] [place] [address] [place] AST [Catalytic activity/Vol] 24 U/L Normal 14-40 [facility] Comment on above: Order Comment: Speci men Type: BLOOD SPECIMENOrdering Facility: [facility] Address: [address] [place], [place] [address] Performed By: #### 2 4323-8, 87526-7 ####[facility] LABCLIA [id number] [address] [address] [place] Bilirubin [Mass/Vol] 0.3 mg/dL Normal 0.2-1.3 [facility] Comment on above: Order Comment: Speci men Type: BLOOD SPECIMENOrdering Facility: [facility] Address: [address] [place] [address] Performed By: #### 2 4323-8, 35574-9 ####[facility] LABCLIA [id number] [place] [address] [place] Calcium [Mass/Vol] 9.8 mg/dL Normal 8.5-10.2 [facility] Comment on above: Order Comment: Speci men Type: BLOOD SPECIMENOrdering Facility: [facility] Address: [address] [place] [address] Performed By: #### 2 4323-8, 08661-8 ####[facility] LABCLIA [id number] [place] [address] [place] Chloride [Moles/Vol] 102 mmol/L Normal 98-107 [facility] Comment on above: Order Comment: Speci men Type: BLOOD SPECIMENOrdering Facility: [facility] Address: [address] [place] [address] Performed By: #### 2 4323-8, 62692-4 ####[facility] LABCLIA [id number] [place] [address] [place] CO2 [Moles/Vol] 26 mmol/L Normal 22-30 [facility] Comment on above: Order Comment: Speci men Type: BLOOD SPECIMENOrdering Facility: [facility] Address: [address] [place], [place] [address] Performed By: #### 2 4323-8, 37644-3 ####[facility] LABCLIA [id number] [address] [address] [place] Creatinine [Mass/Vol] 0.81 mg/dL Normal 0.73-1.22 [facility] Comment on above: Order Comment: Gabby orozco Type: BLOOD SPECIMENOrdering Facility: [facility] Address: [address] [place] [address] Performed By: #### 2 4323-8, 23174-4 ####[facility] LABCLIA [id number] [place] [address] [place] Creatinine and Glomerular filtration rate.predicted panel (S/P/Bld) 99 mL/min/1.73m??? Normal >=60 [facility] Comment on above: Order Comment: Gabby orozco Type: BLOOD SPECIMENOrdering Facility: [facility] Address: [address] [place] [address] Result Comment: Sheyla mated Glomerular Filtration Rate (eGFR) is calculated using the 2020 CKD-EPI creatinine equation. This equation utilizes serum creatinine, sex, and age as parameters. The creatinine assay has traceable calibration to isotope dilution-mass spectrometry. Refer to KDIGO guidelines for clinical interpretation. In patients with unstable renal function, e.g. those with acute kidney injury, the eGFR may not accurately reflect actual GFR. Performed By: #### 2 4323-8, 21519-0 ####[facility] LABCLIA [id number] [place] [address] [place] Glucose [Mass/Vol] 91 mg/dL Normal 74-99 [facility] Comment on above: Order Comment: Gabby orozco Type: BLOOD SPECIMENOrdering Facility: [facility] Address: [address] [place] [address] Result Comment: The [place] Diabetes Association (ADA) provides guidance for cutoff values for fasting glucose and random glucose. The ADA defines fasting as no caloric intake for at least 8 hours. Fasting plasma glucose results between 100 to 125 mg/dL indicate increased risk for diabetes (prediabetes). Fasting plasma glucose results greater than or equal to 126 mg/dL meet the criteria for diagnosis of diabetes. In the absence of unequivocal hyperglycemia, results should be confirmed by repeat testing. In a patient with classic symptoms of hyperglycemia or hyperglycemic crisis, random plasma glucose results greater than or equal to 200 mg/dL meet the criteria for diagnosis of diabetes. Reference: Standards of Medical Care in Diabetes 2016, [place] Diabetes Association. Diabetes Care. 2016.39(Suppl 1). Performed By: #### 2 4323-8, 78966-1 ####[facility] LABCLIA [id number] [address] [address] [place] Potassium [Moles/Vol] 4.6 mmol/L Normal 3.7-5.1 [facility] Comment on above: Order Comment: Speci men Type: BLOOD SPECIMENOrdering Facility: [facility] Address: [address] [place] [address] Performed By: #### 2 4323-8, 21768-3 ####[facility] LABIA [id number] [address] [address] [place] Protein [Mass/Vol] 7.7 g/dL Normal 6.3-8.0 [facility] Comment on above: Order Comment: Speci men Type: BLOOD SPECIMENOrdering Facility: [facility] Address: [address] [id number] Performed By: #### 2 4323-8, ####[facility] LABIA [id number] [address] [address] [place] Sodium [Moles/Vol] 139 mmol/L Normal 136-144 [facility] Comment on above: Order Comment: Speci men Type: BLOOD SPECIMENOrdering Facility: [facility] Address: [address] [id number] Performed By: #### 2 4323-8, 80427-8 ####[facility] LABCLIA [id number] [address] [address] [place] Urea nitrogen [Mass/Vol] 15 mg/dL Normal 9-24 [facility] Comment on above: Order Comment: Speci men Type: BLOOD SPECIMENOrdering Facility: [facility] Address: [address] [id number] Performed By: #### 2 4323-8, 43419-6 ####[facility] LABCLIA [id number] [address] [facility] HbA1c (Bld)on 09-02-2024 Average glucose Estimated from glycated hemoglobin (Bld) [Mass/Vol] 128 mg/dL Normal [facility] Comment on above: Order Comment: Gabby orozco Type: BLOOD SPECIMENOrdering Facility: [facility] Address: [address] [place] [address] Result Comment: eAG: (Estimated average glucose) is a calculated value from HgbA1c and is access service representative of the average blood glucose level in the last 2-3 month period. Performed By: #### 5 5454-3 ####[facility] [id number] [address] HbA1c (Bld) [Mass fraction] 6.1 % High 4.3-5.6 [facility] Comment on above: Order Comment: Gabby orozco Type: BLOOD SPECIMENOrdering Facility: [facility] Address: [address] [place] [address] Result Comment: [place] Diabetes Association guidelines indicate that patients with HgbA1c in the range 5.7-6.4% are at increased risk for development of diabetes, and intervention by lifestyle modification may be beneficial. HgbA1c greater or equal to 6.5% is considered diagnostic of diabetes. Performed By: #### 5 5454-3 ####[facility] LABIA [id number] [address] [place] Lipid 1996 panelon 5 Cholesterol [Mass/Vol] 140 mg/dL Normal <200 [facility] Comment on above: Order Comment: Gabby orozco Type: BLOOD SPECIMENOrdering Facility: [facility] Address: [address] [place] [address] Result Comment: <200 mg/dL, Desirable 200-239 mg/dL, Borderline high >239 mg/dL, High Performed By: #### 2 4323-8, 47864-6 ####[facility] LABCLIA [id number] [place] [address] [facility] Cholesterol in HDL [Mass/Vol] 38 mg/dL Low >39 [facility] Comment on above: Order Comment: Gabby pam Type: BLOOD SPECIMENOrdering Facility: [facility] Address: [address] [place] [address] Result Comment: 40-5 9 mg/dL, Acceptable >59 mg/dL, High: Negative risk factor for coronary heart disease <40 mg/dL, Low: Positive risk factor for coronary heart disease Performed By: #### 2 4323-8, 12010-2 ####[facility] LABCLIA [id number] [address] Cholesterol in LDL [Mass/Vol] 64 mg/dL Normal <100 [facility] Comment on above: Order Comment: Gabby orozco Type: BLOOD SPECIMENOrdering Facility: [facility] Address: [address] [place] [address] Result Comment: <100 mg/dL, Optimal 100-129 mg/dL, Near optimal/above optimal 130-159 mg/dL, Borderline high 160-189 mg/dL, High >189 mg/dL, Very high Secondary prevention optimal LDL Cholesterol levels are recommended to be < 70 mg/dL Performed By: #### 2 4323-8, 99117-0 ####[facility] LABIA [id number] [place] [address] [facility] Cholesterol in LDL/Cholesterol in HDL [Mass ratio] 1.68 {ratio} Normal <2.54 [facility] Comment on above: Order Comment: Gabby pam Type: BLOOD SPECIMENOrdering Facility: [facility] Address: [address] [place] [address] Result Comment: Deborah clemente: 1. National Cholesterol Education Program ATP III Guideline At-A-Glance Quick Desk Reference: National Heart, Lung, and Blood [place]. National Institutes of Health. 2001: NIH Publication No. 01-3305. 2. An International Atherosclerosis Society position paper: global recommendations for the management of dyslipidemia: executive summary, Atherosclerosis. 2014: 232(2):410-413. Performed By: #### 2 4323-8, 31787-6 ####[facility] LABCLIA [id number] [facility] [place] [id number] [address] [place] Cholesterol in VLDL [Mass/Vol] 38 mg/dL High <30 [facility] Comment on above: Order Comment: Speci men Type: BLOOD SPECIMENOrdering Facility: [facility] Address: [address] [place] [address] Performed By: #### 2 4323-8, 37480-7 ####[facility] LABCLIA [id number] [facility] [address] [place] [address] [place] Cholesterol non HDL [Mass/Vol] 102 mg/dL Normal <130 [facility] Comment on above: Order Comment: Speci men Type: BLOOD SPECIMENOrdering Facility: [facility] Address: [address] [place] [address] Result Comment: <130 mg/dL, Optimal 130-159 mg/dL, Near optimal/above optimal 160-189 mg/dL, Borderline high 190-219 mg/dL, High >219 mg/dL, Very high Secondary prevention optimal non HDL Cholesterol levels are recommended to be <100 mg/dL Performed By: #### 2 4323-8, 15584-3 ####[facility] LABCLIA [id number] [facility] [address] [place] [address] [place] Cholesterol.total/Chol esterol in HDL [Mass ratio] 3.68 {ratio} Normal <5.10 [facility] Comment on above: Order Comment: Speci men Type: BLOOD SPECIMENOrdering Facility: [facility] Address: [address] [place], [place] [address] Performed By: #### 2 4323-8, ####[facility] LABCLIA [id number] [facility] [address] [place] [address] [place] FASTING TIME 12 hrs Normal [facility] Comment on above: Order Comment: Speci men Type: BLOOD SPECIMENOrdering Facility: [facility] Address: [address] [place] [address] Performed By: #### 2 4323-8, 26983-2 ####[facility] LABCLIA [id number] [place] [address] [place] Triglyceride [Mass/Vol] 189 mg/dL High <150 [facility] Comment on above: Order Comment: Speci men Type: BLOOD SPECIMENOrdering Facility: [facility] Address: [address] [place] [address] Result Comment: <150 mg/dL, Normal 150-199 mg/dL, Borderline high 200-499 mg/dL, High >499 mg/dL, Very high Performed By: #### 2 4323-8, 87378-8 ####[facility] LABCLIA [id number] [place] [id number] [place] CNOVon 08-24-2024 CNOV Office Visit (UCTR ) -------- ANDREA PIEDRA ([id number]) 1960 M Date Time Provider Department 08/24/24 6:30 PM SJ MCLAUGHLIN [facility] During your visit today, we recorded the following information about you: Temperature Pulse Respiration Blood pressure 98.8 degrees 94/minute 16/minute 124/84 Weight 104.7 kg Sj Mclaughlin PA 08/24/2024 6:45 PM Signed [facility] Subjective Andrea Piedra is a 64 year old male. HPI 64-year-old male presents for sore throat x 2 days. Patient states he had a had influenza about a month ago. All of those symptoms have improved. He does still have mild tickle in his throat/cough, so has been using cough drops. He states that he slept with cough drops in his mouth the past few nights and noticed that his throat feels irritated and his tongue feels irritated. He states that the cough drops or Gale's cough drops and they do have some acid in them, so he thought it may be due to this. He is still able to eat and drink, throat just feels irritated. He denies any fevers, congestion. No new sick contacts. No fevers. He states he had a white coating on his tongue earlier, but that has resolved. He denies any recent antibiotics or steroids. No history of thrush. No other complaint. PAST MEDICAL HISTORY Diagnosis Date Anticoagulant long-term use Arrhythmia At risk for stroke [id number] = 1 (HTN) Essential hypertension Essential hypertension Generalized anxiety disorder Hemorrhage of gastrointestinal tract, unspecified Hemorrhoids Paroxysmal atrial fibrillation (HCC) Rectal bleeding 09/2021 Sleep apnea does not use cpap. Snoring PAST SURGICAL HISTORY Procedure Laterality Date COLONOSCOPY FLX DX W/COLLJ SPEC WHEN PFRMD 07/11/2008 Colonoscopy COLONOSCOPY FLX DX W/COLLJ SPEC WHEN PFRMD 05/26/2018 Colonoscopy ESOPHAGOGASTRODUODENOSCO PY TRANSORAL DIAGNOSTIC 05/26/2018 EGD ESOPHAGOGASTRODUODENOSCO PY TRANSORAL DIAGNOSTIC 04/02/2022 EYE SURGERY HX HEMORRHOID: RUBBERBAND, SINGLE/MULTIPLE 10/04/2021 HEMORRHOID;BAND LIGAT, SNGL/MUL 04/02/2022 HEMORRHOIDECTOMY INTERNAL RUBBER BAND LIGATIONS 05/26/2018 PROCEDURE RM-COLONSCOPY W/BX 04/02/2022 ALLERGIES Vicodin [Hydrocodone-Acetaminoph en] MEDICATIONS flecainide (TAMBOCOR) 100 mg tablet Take 100 mg by mouth as needed. LORazepam (ATIVAN) 0.5 mg Take 1 tablet by mouth three times a day as needed (anxiety) for up to 90 days. dilTIAZem CD (CARDIZEM CD, CARTIA XT) 240 mg 24 hr capsule Take 1 capsule by mouth once daily. aspirin, enteric coated (ECOTRIN LOW STRENGTH) 81 mg EC tablet Take 81 mg by mouth once daily. benazepril (LOTENSIN) 20 mg tablet Take 1 tablet by mouth two times a day. atorvastatin (LIPITOR) 20 mg tablet Take 1 tablet by mouth once daily. triamcinolone acetonide (NASACORT NASAL) Use in the nose. fexofenadine (SHANNAN) 180 mg tablet Take 180 mg by mouth once daily. calcium carbonate (TUMS ORAL) Take 2 tablets by mouth as needed. hydroCHLOROthiazide (HYDRODIURIL, ESIDRIX) 12.5 mg tablet Take 12.5 mg by mouth twice daily. melatonin 3 mg capsules Take 3 mg by mouth at bedtime as needed. potassium chloride (K-TAB) 10 mEq tablet Take 10 mEq by mouth once daily. metoprolol tartrate, short acting, (LOPRESSOR) 100 mg tablet Take 100 mg by mouth twice daily. FAMILY HISTORY Problem Relation Age of Onset Heart Mother Valve Replacement COPD Mother other (history of smoking) Mother Hypertension Father Kidney failure Father kidney disease - on dialysis Heart disease Father heart valve problem Hypertension Sister Hyperlipidemia Sister other (sudden infant ) Brother other (sudden infant ) Brother Thyroid Son Prostate Cancer No Family History none Social History Tobacco Use Smoking status: Never Smokeless tobacco: Never Vaping Use Vaping status: Never Used Substance Use Topics Alcohol use: Yes Comment: very occasional Drug use: No Review of Systems Constitutional: Negative for chills and fever. HENT: Positive for sore throat. Negative for congestion. Respiratory: Negative for cough and shortness of breath. Gastrointestinal: Negative for diarrhea and vomiting. Objective BP 124/84 Pulse 94 Temp 37.1 ?C (98.8 ?F) Resp 16 Wt 104.7 kg (230 lb 13.2 oz) SpO2 96% BMI 33.12 kg/m? Physical Exam Vitals and nursing note reviewed. Constitutional: General: He is not in acute distress. Appearance: Normal appearance. He is not toxic-appearing. HENT: Right Ear: Tympanic membrane and ear canal normal. Left Ear: Tympanic membrane and ear canal normal. Nose: Nose normal. Mouth/Throat: Mouth: Mucous membranes are moist. Tongue: Lesions present. Pharynx: Uvula midline. Posterior oropharyngeal erythema present. Tonsils: 2+ on the right. 2+ on the left. Comments: Patient has irritated/raised papilla on the tongue n (more content not included)... Normal [facility] Fungus Spec Culton 5 Fungus identified Cx Nom (Unsp spec) ORGANISM ID: 1 Rare Priscila albicans Normal [facility] Comment on above: Performed By: #### 5 80-1 ####[facility] LABCLIA [id number] [place] [address] [place] STREP A MOLECULAR (POC)on Procedural Control Valid [facility] Strep A (POCT) Negative Negative [facility] CNOVon 08-16-2024 CNOV Office Visit (FAMPWS ) -------- ANDREA PIEDRA ([id number]) 1960 M Date Time Provider Department 08/16/24 1:20 PM [facility] During your visit today, we recorded the following information about you: Temperature Pulse Blood pressure Weight 98.4 degrees 76/minute 126/64 103.9 kg Height 1.778 m Alan Ward MD 08/16/2024 1:35 PM Signed Patient presents with: Follow Up HPI: Patient presents today for office visit for follow up. Seen in [facility] 08/02/24. Tested positive for Influenza A. Still with bad cough. Cough is keeping him up at night. Denies chest pain and shortness of breath. No wheezing. Has a lot of congestion first thing in the morning and at night. PSYCH: Struggles with anxiety. Continues taking Ativan nightly. 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 Grandson was recently ill which was hard on him. Worried about the future with grandson with him being up in years. and him were both ill trying to care for grandson and it took a lot out of him. Has loss of appetite due to anxiety. Only uses lorazepam at hs. Oarrs done. Discussed risks and benefits of benzos and discussed avoiding increasing it. Offered ssri's. Will consider. MEDICATIONS: Current Outpatient Medications Medication Sig flecainide (TAMBOCOR) 100 mg tablet Take 100 mg by mouth as needed. LORazepam (ATIVAN) 0.5 mg Take 1 tablet by mouth three times a day as needed (anxiety) for up to 90 days. dilTIAZem CD (CARDIZEM CD, CARTIA XT) 240 mg 24 hr capsule Take 1 capsule by mouth once daily. aspirin, enteric coated (ECOTRIN LOW STRENGTH) 81 mg EC tablet Take 81 mg by mouth once daily. benazepril (LOTENSIN) 20 mg tablet Take 1 tablet by mouth two times a day. atorvastatin (LIPITOR) 20 mg tablet Take 1 tablet by mouth once daily. triamcinolone acetonide (NASACORT NASAL) Use in the nose. fexofenadine (SHANNAN) 180 mg tablet Take 180 mg by mouth once daily. calcium carbonate (TUMS ORAL) Take 2 tablets by mouth as needed. hydroCHLOROthiazide (HYDRODIURIL, ESIDRIX) 12.5 mg tablet Take 12.5 mg by mouth twice daily. melatonin 3 mg capsules Take 3 mg by mouth at bedtime as needed. potassium chloride (K-TAB) 10 mEq tablet Take 10 mEq by mouth once daily. metoprolol tartrate, short acting, (LOPRESSOR) 100 mg tablet Take 100 mg by mouth twice daily. No current facility-administered medications for this visit. ALLERGIES: ALLERGIES Allergen Reactions Vicodin [Hydrocodon* Mental Status Change PAST MEDICAL HISTORY Diagnosis Date Anticoagulant long-term use Arrhythmia At risk for stroke [id number] = 1 (HTN) Essential hypertension Essential hypertension Generalized anxiety disorder Hemorrhage of gastrointestinal tract, unspecified Hemorrhoids Paroxysmal atrial fibrillation (HCC) Rectal bleeding 09/2021 Sleep apnea does not use cpap. Snoring PAST SURGICAL HISTORY Procedure Laterality Date COLONOSCOPY FLX DX W/COLLJ SPEC WHEN PFRMD 07/11/2008 Colonoscopy COLONOSCOPY FLX DX W/COLLJ SPEC WHEN PFRMD 05/26/2018 Colonoscopy ESOPHAGOGASTRODUODENOSCO PY TRANSORAL DIAGNOSTIC 05/26/2018 EGD ESOPHAGOGASTRODUODENOSCO PY TRANSORAL DIAGNOSTIC 04/02/2022 EYE SURGERY HX HEMORRHOID: RUBBERBAND, SINGLE/MULTIPLE 10/04/2021 HEMORRHOID;BAND LIGAT, SNGL/MUL 04/02/2022 HEMORRHOIDECTOMY INTERNAL RUBBER BAND LIGATIONS 05/26/2018 PROCEDURE RM-COLONSCOPY W/BX 04/02/2022 FAMILY HISTORY Problem Relation Age of Onset Heart Mother Valve Replacement COPD Mother other (history of smoking) Mother Hypertension Father Kidney failure Father kidney disease - on dialysis Heart disease Father heart valve problem Hypertension Sister Hyperlipidemia Sister other (sudden infant ) Brother other (sudden ) Brother Thyroid Son Prostate Cancer No Family History none Social History Tobacco Use Smoking status: Never Smokeless tobacco: Never Vaping Use Vaping status: Never Used Substance Use Topics Alcohol use: Yes Comment: very occasional Drug use: No Reviewed current medications, allergies, past medical history, surgical history, family history and social history today. REVIEW OF SYSTEMS All other reviewed and negative other than HPI. VITALS: BP 126/64 Pulse 76 Temp 36.9 ?C (98.4 ?F) Ht 177.8 cm (5' 10") Wt 103.9 kg (229 lb) SpO2 97% BMI 32.86 kg/m? Last 4 Encounter Wt Readings: Date: Wt: 08/16/2024 103.9 kg (229 lb) 08/02/2024 108.8 kg (239 lb 13.8 oz) 07/09/2024 109.3 kg (241 lb) 06/07/2024 109.8 kg (242 lb) PHYSICAL EXAMINATION: General appearance: Well appearing, alert, in no acute distress, well-hydrated, well nourished. Skin: Skin color, texture, turgor normal, no suspicious rashes or lesions Head: Normocephalic, no masses, lesions, tenderness or abnormalities Eyes: Anicteric sclera. Pupils are equally rou (more content not included)... Normal [facility] CNOVon 08-02-2024 CNOV Office Visit (UCWSTR ) -------- ANDREA PIEDRA ([id number]) 1960 M Date Time Provider Department 08/02/24 10:00 AM CHARLENE BECK [facility] During your visit today, we recorded the following information about you: Temperature Pulse Respiration Blood pressure 99.4 degrees 74/minute 20/minute 120/82 Weight 108.8 kg Charlene Beck APRN.[employer]ER/FIREMAN 08/02/2024 10:36 AM Signed CC: Patient presents with: Cough: Chest congestion, sinus, fever, TREVIÑO x 2 days HPI: Andrea Piedra is a 64 year old male who presents to the office with complaint of head congestion, cough, nonproductive, sinus symptoms, and fever for 2 days. Symptoms are staying the same. Associated symptoms includes headache and body aches. Denies wheezing, dyspnea, nausea, and vomiting . Treatments tried include nothing so far. with no relief of symptoms. Sick contacts: unknown. History of asthma, frequent episodes of bronchitis, chronic bronchitis, bronchiectasis or COPD: No The ROS is otherwise negative. The patient's pmh, medications, allergies, and past visits are reviewed. PHYSICAL EXAM: BP 120/82 Pulse 74 Temp 37.4 ?C (99.4 ?F) Resp 20 Wt 108.8 kg (239 lb 13.8 oz) SpO2 96% BMI 34.42 kg/m? General appearance: alert, cooperative, pleasant, in no acute distress Head: Normocephalic Eyes: EOM's intact, conjunctiva pink and moist, no icterus, sclera white, non-injected Ears: Right ear: External ear/canal- Normal, TM - clear with good landmarks. Left ear: External ear/canal- Normal, TM - clear with good landmarks Oropharynx:moist without lesions, No erythema, exudates or tonsillar hypertrophy. Heart: Negative. RRR without obvious murmur, gallop, or rubs. No ectopy. Lungs: clear to auscultation, without rales or wheeze, good air exchange PAST MEDICAL HISTORY Diagnosis Date Anticoagulant long-term use Arrhythmia At risk for stroke [id number] = 1 (HTN) Essential hypertension Essential hypertension Generalized anxiety disorder Hemorrhage of gastrointestinal tract, unspecified Hemorrhoids Paroxysmal atrial fibrillation (HCC) Rectal bleeding 09/2021 Sleep apnea does not use cpap. Snoring PAST SURGICAL HISTORY Procedure Laterality Date COLONOSCOPY FLX DX W/COLLJ SPEC WHEN PFRMD 07/11/2008 Colonoscopy COLONOSCOPY FLX DX W/COLLJ SPEC WHEN PFRMD 05/26/2018 Colonoscopy ESOPHAGOGASTRODUODENOSCO PY TRANSORAL DIAGNOSTIC 05/26/2018 EGD ESOPHAGOGASTRODUODENOSCO PY TRANSORAL DIAGNOSTIC 04/02/2022 EYE SURGERY HX HEMORRHOID: RUBBERBAND, SINGLE/MULTIPLE 10/04/2021 HEMORRHOID;BAND LIGAT, SNGL/MUL 04/02/2022 HEMORRHOIDECTOMY INTERNAL RUBBER BAND LIGATIONS 05/26/2018 PROCEDURE RM-COLONSCOPY W/BX 04/02/2022 ALLERGIES Vicodin [Hydrocodone-Acetaminoph en] MEDICATIONS flecainide (TAMBOCOR) 100 mg tablet Take 100 mg by mouth as needed. LORazepam (ATIVAN) 0.5 mg Take 1 tablet by mouth three times a day as needed (anxiety) for up to 90 days. dilTIAZem CD (CARDIZEM CD, CARTIA XT) 240 mg 24 hr capsule Take 1 capsule by mouth once daily. aspirin, enteric coated (ECOTRIN LOW STRENGTH) 81 mg EC tablet Take 81 mg by mouth once daily. benazepril (LOTENSIN) 20 mg tablet Take 1 tablet by mouth two times a day. atorvastatin (LIPITOR) 20 mg tablet Take 1 tablet by mouth once daily. triamcinolone acetonide (NASACORT NASAL) Use in the nose. fexofenadine (SAHNNAN) 180 mg tablet Take 180 mg by mouth once daily. calcium carbonate (TUMS ORAL) Take 2 tablets by mouth as needed. hydroCHLOROthiazide (HYDRODIURIL, ESIDRIX) 12.5 mg tablet Take 12.5 mg by mouth twice daily. melatonin 3 mg capsules Take 3 mg by mouth at bedtime as needed. potassium chloride (K-TAB) 10 mEq tablet Take 10 mEq by mouth once daily. metoprolol tartrate, short acting, (LOPRESSOR) 100 mg tablet Take 100 mg by mouth twice daily. FAMILY HISTORY Problem Relation Age of Onset Heart Mother Valve Replacement COPD Mother other (history of smoking) Mother Hypertension Father Kidney failure Father kidney disease - on dialysis Heart disease Father heart valve problem Hypertension Sister Hyperlipidemia Sister other (sudden infant ) Brother other (sudden ) Brother Thyroid Son Prostate Cancer No Family History none Social History Tobacco Use Smoking status: Never Smokeless tobacco: Never Vaping Use Vaping status: Never Used Substance Use Topics Alcohol use: Yes Comment: very occasional Drug use: No ASSESSMENT/PLAN: 1. URI, acute - ICD9: 465.9, ICD10: J06.9 (primary diagnosis) - INFLUENZA AANDB MOLECULAR (POC) - pos 2. Flu - ICD9: 487.1, ICD10: J11.1 - OSELTAMIVIR 75 MG CAPSULE Last gfr 100 Prescription instructions reviewed with patient as applicable. Potential red flag symptoms discussed with the patient. Reviewed appropriate action plan to take if red flag symptoms occur. Patient agreeable to twyla (more content not included)... [facility] ANDREA PIEDRA ([id number]) 1960 M Date Time Provider Department 08/02/24 CHARLENE BECK [facility] During your visit today, we recorded the following information about you: Natalie Partida RN 08/02/2024 5:04 PM Signed Patient's calls and states that patient continues to run a temperature of 104.8 and that is with tylenol. Patient cannot take anymore tylenol today. asking what she should do? Please review and advise, LIYAH Almonte Kevin J, MD 08/02/2024 7:43 PM Signed I called his back: He not is taking any anti-coagulant other than aspirin. Ibuprofen can be used, but it will increase the risk of stomach ulcer. The risk should be acceptable if only taken a couple days. Allergies As of Date: 08/02/2024 Noted Allergy Reaction VICODIN (HYDROCODONE-ACETAMINOPH E*01/29/2007 1 - Mental Status Change Date Reviewed: 08/02/2024 Reviewed by: Charisma Baer MA - Fully Assessed Reason for Visit: Patient Question [8024] Prescriptions as of 08/02/2024 - oseltamivir (TAMIFLU) 75 mg capsule Take 1 capsule by mouth two times a day for 5 days. - flecainide (TAMBOCOR) 100 mg tablet Take 100 mg by mouth as needed. - LORazepam (ATIVAN) 0.5 mg Take 1 tablet by mouth three times a day as needed (anxiety) for up to 90 days. - dilTIAZem CD (CARDIZEM CD, CARTIA XT) 240 mg 24 hr capsule Take 1 capsule by mouth once daily. - aspirin, enteric coated (ECOTRIN LOW STRENGTH) 81 mg EC tablet Take 81 mg by mouth once daily. - benazepril (LOTENSIN) 20 mg tablet Take 1 tablet by mouth two times a day. - atorvastatin (LIPITOR) 20 mg tablet Take 1 tablet by mouth once daily. - triamcinolone acetonide (NASACORT NASAL) Use in the nose. - fexofenadine (SHANNAN) 180 mg tablet Take 180 mg by mouth once daily. - calcium carbonate (TUMS ORAL) Take 2 tablets by mouth as needed. - hydroCHLOROthiazide (HYDRODIURIL, ESIDRIX) 12.5 mg tablet Take 12.5 mg by mouth twice daily. - melatonin 3 mg capsules Take 3 mg by mouth at bedtime as needed. - potassium chloride (K-TAB) 10 mEq tablet Take 10 mEq by mouth once daily. - metoprolol tartrate, short acting, (LOPRESSOR) 100 mg tablet Take 100 mg by mouth twice daily. Problem List As Of Date 08/02/2024 Noted Resolved Cervicalgia [M54.2] 08/21/2005 10/29/2012 Generalized Anxiety Disorder [F41.1] Essential hypertension [I10] Mixed hyperlipidemia [E78.2] 05/10/2008 Unspecified Sleep Apnea [G47.30] 09/09/2008 Routine general medical examination at [facility]*10/16/2009 02/10/2012 Class: Chronic Pain in joint, lower leg [M25.569] 02/20/2010 10/29/2012 Pain in joint, shoulder region [M25.519] 02/20/2010 10/29/2012 Palpitations [R00.2] 02/25/2012 03/28/2021 Hyperlipidemia [E78.5] 10/29/2012 09/26/2021 Backache, unspecified [M54.9] 12/03/2013 09/04/2016 Benign non-nodular prostatic hyperplasia withou*07/18/2016 Epididymal cyst [N50.3] 07/18/2016 10/21/2022 Paroxysmal atrial fibrillation (HCC) [I48.0] 09/25/2018 Hyperglycemia [R73.9] 03/27/2020 At risk for stroke [Z91.89] 05/01/2021 10/21/2022 Anticoagulant long-term use [Z79.01] 05/01/2021 03/08/2024 Obesity, Class I, BMI 30-34.9 [E66.811] 05/02/2021 Special screening examination for viral disease*09/26/2021 09/26/2021 Diarrhea [R19.7] 03/29/2022 10/21/2022 Pure hypercholesterolemia, unspecified [E78.00] 07/13/2021 03/04/2023 Benign paroxysmal positional vertigo [H81.10] 12/20/2022 Tendinitis of shoulder [M77.8] 03/31/2024 Acute right-sided low back pain without sciatic*03/31/2024 Encounter Status:Closed by ORLANDO NAGEL on 08/02/24 [facility] [employer] Telephone ([employer] -------- ANDREA PIEDRA ([id number]) 1960 M Date Time Provider Department 08/02/24 ALAN WARD [facility] During your visit today, we recorded the following information about you: Afua Morgan RN 08/02/2024 5:11 PM Signed Pt was seen in [facility] care today. Positive for Influenza A. Medication prescribed. Pt's calling and states pt's temp is currently 104.8. Pt is taking Tylenol 500 mg every 6 hours, as indicated on their bottle. Pt was due for tylenol dose about 30 min ago and gave it to him. Pt without confusion, no SOB. No rashes or stiff neck. Continues with head congestion, cough-nonproductive, sinus symptoms, and fever f. reports pt is drinking and urinating. Advised to apply cool cloths to patient's upper body and under arms, encourage fluids. Current protocol advises PCP to advise patient. Informed that message would be sent to a PCP triad provider/On-Call Provider for review and to be called back with reply. aware to have pt proceed to ER for any severe sx's as discussed. Afua Morgan, RN Macey Nguyen RN 08/02/2024 7:59 PM Signed Called and spoke with and pt. 30 mins ago temp was down to 101.9. Temp taken while nurse talking to and current temp is 100.0. Pt is feeling better than earlier. Nurse scrap preparation supervisor number given to pt's for them to call if anything changes. She verbalizes understanding. Zee De La Vega, GUILLERMO.STEAM LOCOMOTIVE FIRER/FIREMAN 08/02/2024 8:17 PM Signed Agree with plan/advice given. Allergies As of Date: 08/02/2024 Noted Allergy Reaction VICODIN (HYDROCODONE-ACETAMINOPH E*01/29/2007 1 - Mental Status Change Date Reviewed: 08/02/2024 Reviewed by: Charisma Baer MA - Fully Assessed Reason for Visit: Patient Question [4607] Prescriptions as of 08/02/2024 - oseltamivir (TAMIFLU) 75 mg capsule Take 1 capsule by mouth two times a day for 5 days. - flecainide (TAMBOCOR) 100 mg tablet Take 100 mg by mouth as needed. - LORazepam (ATIVAN) 0.5 mg Take 1 tablet by mouth three times a day as needed (anxiety) for up to 90 days. - dilTIAZem CD (CARDIZEM CD, CARTIA XT) 240 mg 24 hr capsule Take 1 capsule by mouth once daily. - aspirin, enteric coated (ECOTRIN LOW STRENGTH) 81 mg EC tablet Take 81 mg by mouth once daily. - benazepril (LOTENSIN) 20 mg tablet Take 1 tablet by mouth two times a day. - atorvastatin (LIPITOR) 20 mg tablet Take 1 tablet by mouth once daily. - triamcinolone acetonide (NASACORT NASAL) Use in the nose. - fexofenadine (SHANNAN) 180 mg tablet Take 180 mg by mouth once daily. - calcium carbonate (TUMS ORAL) Take 2 tablets by mouth as needed. - hydroCHLOROthiazide (HYDRODIURIL, ESIDRIX) 12.5 mg tablet Take 12.5 mg by mouth twice daily. - melatonin 3 mg capsules Take 3 mg by mouth at bedtime as needed. - potassium chloride (K-TAB) 10 mEq tablet Take 10 mEq by mouth once daily. - metoprolol tartrate, short acting, (LOPRESSOR) 100 mg tablet Take 100 mg by mouth twice daily. Problem List As Of Date 08/02/2024 Noted Resolved Cervicalgia [M54.2] 08/21/2005 10/29/2012 Generalized Anxiety Disorder [F41.1] Essential hypertension [I10] Mixed hyperlipidemia [E78.2] 05/10/2008 Unspecified Sleep Apnea [G47.30] 09/09/2008 Routine general medical examination at [facility]*10/16/2009 02/10/2012 Class: Chronic Pain in joint, lower leg [M25.569] 02/20/2010 10/29/2012 Pain in joint, shoulder region [M25.519] 02/20/2010 10/29/2012 Palpitations [R00.2] 02/25/2012 03/28/2021 Hyperlipidemia [E78.5] 10/29/2012 09/26/2021 Backache, unspecified [M54.9] 12/03/2013 09/04/2016 Benign non-nodular prostatic hyperplasia withou*07/18/2016 Epididymal cyst [N50.3] 07/18/2016 10/21/2022 Paroxysmal atrial fibrillation (HCC) [I48.0] 09/25/2018 Hyperglycemia [R73.9] 03/27/2020 At risk for stroke [Z91.89] 05/01/2021 10/21/2022 Anticoagulant long-term use [Z79.01] 05/01/2021 03/08/2024 Obesity, Class I, BMI 30-34.9 [E66.811] 05/02/2021 Special screening examination for viral disease*09/26/2021 09/26/2021 Diarrhea [R19.7] 03/29/2022 10/21/2022 Pure hypercholesterolemia, unspecified [E78.00] 07/13/2021 03/04/2023 Benign paroxysmal positional vertigo [H81.10] 12/20/2022 Tendinitis of shoulder [M77.8] 03/31/2024 Acute right-sided low back pain without sciatic*03/31/2024 Encounter Status:Closed by MACEY NGUYEN on 08/02/24 [facility] INFLUENZA A&B MOLECULAR (POC )on 08-02-2024 Flu A (POCT) Positive Abnormal Negative [facility] Comment on above: Location: [facility], [address], [place], [address] Interpretation and review of laboratory results Abnormal [facility] Procedural Control Valid [facility] Location: [facility], [address], [place], [address] [facility] POINT OF CARE [facility] CNOVon 07-09-2024 CNOV Office Visit (FAMPWS ) -------- ANDREA PIEDRA ([id number]) 1960 M Date Time Provider Department 07/09/24 3:00 PM [facility] During your visit today, we recorded the following information about you: Pulse Blood pressure Weight Height 67/minute 118/68 109.3 kg 1.778 m Alan Ward MD 07/09/2024 3:38 PM Signed Patient presents with: Follow Up HPI: Patient presents today for office visit for follow up. Persistent B/L shoulder pain. No longer doing PT. Completed Prednisone. Took the edge off but did not take pain completely away. Today also mentions he's having pain in his left ankle. Started 1.5 weeks ago. No injury. No swelling. Not giving out. Ankle feels strong. Not hot or red. Bp well controlled. No chest pain or shortness of breath No edema. Remains on lipitor. Ramsey: still seeing sleep med Still seeing cardiology. No issues with anxiety. MEDICATIONS: Current Outpatient Medications Medication Sig flecainide (TAMBOCOR) 100 mg tablet Take 100 mg by mouth as needed. LORazepam (ATIVAN) 0.5 mg Take 1 tablet by mouth three times a day as needed (anxiety) for up to 90 days. dilTIAZem CD (CARDIZEM CD, CARTIA XT) 240 mg 24 hr capsule Take 1 capsule by mouth once daily. aspirin, enteric coated (ECOTRIN LOW STRENGTH) 81 mg EC tablet Take 81 mg by mouth once daily. benazepril (LOTENSIN) 20 mg tablet Take 1 tablet by mouth two times a day. atorvastatin (LIPITOR) 20 mg tablet Take 1 tablet by mouth once daily. triamcinolone acetonide (NASACORT NASAL) Use in the nose. fexofenadine (SHANNAN) 180 mg tablet Take 180 mg by mouth once daily. calcium carbonate (TUMS ORAL) Take 2 tablets by mouth as needed. hydroCHLOROthiazide (HYDRODIURIL, ESIDRIX) 12.5 mg tablet Take 12.5 mg by mouth twice daily. melatonin 3 mg capsules Take 3 mg by mouth at bedtime as needed. potassium chloride (K-TAB) 10 mEq tablet Take 10 mEq by mouth once daily. metoprolol tartrate, short acting, (LOPRESSOR) 100 mg tablet Take 100 mg by mouth twice daily. No current facility-administered medications for this visit. ALLERGIES: ALLERGIES Allergen Reactions Vicodin [Hydrocodon* Mental Status Change PAST MEDICAL HISTORY Diagnosis Date Anticoagulant long-term use Arrhythmia At risk for stroke [id number] = 1 (HTN) Essential hypertension Essential hypertension Generalized anxiety disorder Hemorrhage of gastrointestinal tract, unspecified Hemorrhoids Paroxysmal atrial fibrillation (HCC) Rectal bleeding 09/2021 Sleep apnea does not use cpap. Snoring PAST SURGICAL HISTORY Procedure Laterality Date COLONOSCOPY FLX DX W/COLLJ SPEC WHEN PFRMD 07/11/2008 Colonoscopy COLONOSCOPY FLX DX W/COLLJ SPEC WHEN PFRMD 05/26/2018 Colonoscopy ESOPHAGOGASTRODUODENOSCO PY TRANSORAL DIAGNOSTIC 05/26/2018 EGD ESOPHAGOGASTRODUODENOSCO PY TRANSORAL DIAGNOSTIC 04/02/2022 EYE SURGERY HX HEMORRHOID: RUBBERBAND, SINGLE/MULTIPLE 10/04/2021 HEMORRHOID;BAND LIGAT, SNGL/MUL 04/02/2022 HEMORRHOIDECTOMY INTERNAL RUBBER BAND LIGATIONS 05/26/2018 PROCEDURE RM-COLONSCOPY W/BX 04/02/2022 FAMILY HISTORY Problem Relation Age of Onset Heart Mother Valve Replacement COPD Mother other (history of smoking) Mother Hypertension Father Kidney failure Father kidney disease - on dialysis Heart disease Father heart valve problem Hypertension Sister Hyperlipidemia Sister other (sudden infant ) Brother other (sudden ) Brother Thyroid Son Prostate Cancer No Family History none Social History Tobacco Use Smoking status: Never Smokeless tobacco: Never Vaping Use Vaping status: Never Used Substance Use Topics Alcohol use: Yes Comment: very occasional Drug use: No Reviewed current medications, allergies, past medical history, surgical history, family history and social history today. REVIEW OF SYSTEMS All other reviewed and negative other than HPI. VITALS: BP 118/68 Pulse 67 Ht 177.8 cm (5' 10") Wt 109.3 kg (241 lb) SpO2 95% BMI 34.58 kg/m? Last 4 Encounter Wt Readings: Date: Wt: 07/09/2024 109.3 kg (241 lb) 06/07/2024 109.8 kg (242 lb) 03/08/2024 106.6 kg (235 lb 0.2 oz) 01/14/2024 105.2 kg (232 lb) PHYSICAL EXAMINATION: General appearance: Well appearing, alert, in no acute distress, well-hydrated, well nourished. Skin: Skin color, texture, turgor normal, no suspicious rashes or lesions Head: Normocephalic, no masses, lesions, tenderness or abnormalities Shoulder exam shows normal range of motion. Negative empty can. Ankle shows slight swelling over medial malleolus. No redness or warmth. Negative drawer. ASSESSMENT/PLAN: 1. Chronic pain of both shoulders - ICD9: 719.41, 338.29, ICD10: M25.511, G89.29, M25.512 (primary diagnosis) - CONSULT TO ORTHOPAEDICS 2. Essential hypertension - ICD9: 401.9, ICD10: I10 - Controlled - (more content not included)... Normal [facility] XR ANKLE 3V AP/LAT/OBL LTon 07-09-2024 XR ANKLE 3V AP/LAT/OBL LT * * *Final Report* * * DATE OF EXAM: Jul 09 2024 4:04PM WOX [id number] - XR ANKLE 3V AP/LAT/OBL LT / PROCEDURE REASON: Sprain of ligament of left ankle, initial encounter * * * * Physician Interpretation * * * * ANKLE RADIOGRAPHS - LEFT HISTORY: Sprain of ligament of left ankle, initial encounter TECHNOLOGIST PROVIDED HISTORY (if applicable): Acute left ankle pain, no known injury but patient stepped down out of a truck and thinks it may have happened then. Pain at medial side of ankle. TECHNIQUE: XR ANKLE 3V AP/LAT/OBL LT COMPARISON: None available RESULT: Bone mineralization appears normal. Left ankle: There is no acute osseous, articular, or soft tissue abnormality. There is no joint effusion or soft tissue swelling. Ankle mortise appears intact. Well-defined ossific densities at the medial malleolus characteristic for previous trauma. Plantar and posterior calcaneal spurs. IMPRESSION: 1. No acute radiographic abnormality of the left ankle Last Marker: PSCB Transcribe Date/Time: Jul 11 2024 11:00A Dictated by : GERARDO BRAVO MD This examination was interpreted and the report reviewed and electronically signed by: GERARDO BRAVO MD on Jul 11 2024 11:00AM EST [id number] Normal [facility] Pulmonary Visit Reporton Pulmonary Visit Report [facility] of [address] [place] [address] OFFICE VISIT Date of Service: 06/29/24 MR#: [id number] Acct: [id number] Name: ANDREA PIEDRA Rep #: [id number] : 1960 Provider: Hoda Jerry NP Age/Sex: 64/M Location: [facility] Status: Signed Assessment and Plan Assessment and Plan (1) RAMSEY (obstructive sleep apnea): Status: Chronic Plan: Obstructive sleep apnea is well-controlled today with current AutoPap settings. I recommend that he continue with compliant use of AutoPap 7 to 20 cm. I recommend a compliance download on follow-up in 1 year. Prescription for mask, tubing, supplies to be sent to [facility]. Notify this practice if worsening symptoms occur. No indication for titration study today. At this point I feel like his daytime tiredness is related to the cardiac disease and medications. He is encouraged to continue to follow-up with cardiology. Plan Details Follow Up: 1 Year (LMR) HPI HPI Comments Details: This is a 64-year-old male patient who presents to the clinic today for routine scheduled follow-up for obstructive sleep apnea. A diagnostic polysomnogram was completed on August 14, 2018. An overall AHI of 26.4 events per hour was recorded, noted to have a higher AHI in the REM stage of sleep at 38.8 events per hour, also slightly more elevated in the supine position with an average of 30.6 events per hour. PLMS index was noted to be 4 events per hour. Since that time, the patient was started on AutoPap. The patient is using AutoPap 7 to 20 cm without significant air leak or snore. He does have occasional dry mouth but this is not occurring in the morning or at night, more throughout the day. He has a rare headache. There are no concerns about the air pressure. Sleep is refreshing. He is using a nasal mask. The patient is reporting good compliance. Daytime hypersomnia is improved. ESS is 7. 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 He denies shortness of breath, cough, wheeze. He denies chest pain and chest tightness. He does have chest palpitations with his known Afib. He follows with cardiology. He feels like the A-fib is mostly controlled. He has chosen not proceeded with ablation. He does continue on a beta-kinza and aspirin due to the recommendation from the cardiology group. Documentation reviewed with patient today includes: Compliance download from June 27, 2024 for the last 30 days shows 100% use of the device, using device 7 hours and 57 minutes nightly average. AHI 2.7. Minimal air leak and average pressure 10.8 cm. Intake Vital Signs 05/24/24 09:00 06/29/24 09:17 Height 5 ft 11 in 5 ft 11 in Weight: 240 lb 239 lb BMI 33.5 33.3 BP 129/82 H 121/76 H Blood Pressure Location Lt brachial Lt brachial Position Sitting Sitting Respiration 16 18 Pulse 52 L 52 L Pulse Source NIBP Monitor Temp 97.4 F L Temperature Source Temporal Artery Pulse Oximetry (%) 95 Oxygen Delivery Method room air Intake Visit Reasons: 1 Y FU Chief Complaint: PAF; HLD; HTN DME Vendor: PAP-changing to [employer] Accompanied by: Self Allergies hydrocodone (From Vicodin) Adverse Reaction (Verified 06/29/24 10:24) Other Medications ???Medication ???Instructions ???Recorded ???Confirmed ???Type melatonin 3 mg capsule 3 mg PO HS 03/29/19 05/24/24 History lorazepam 0.5 mg tablet 0.5 mg PO QHS PRN Anxiety 10/21/22 06/29/24 History atorvastatin 20 mg tablet 20 mg PO QHS HYPERLIPIDEMIA #90 06/26/23 06/29/24 Rx tabs benazepril 20 mg tablet 20 mg PO BID #180 tabs 06/26/23 06/29/24 Rx diltiazem HCl 240 mg 240 mg PO DAILY #90 caps 06/26/23 06/29/24 Rx capsule,extended release 24 hr hydrochlorothiazide 12.5 mg tablet 12.5 mg PO DAILY #90 tabs 06/26/23 06/29/24 Rx aspirin 81 mg chewable tablet 81 mg PO DAILY #30 tabs 11/26/23 06/29/24 Rx calcium carbonate (Tums) 200 mg PO ONCE PRN 05/24/24 06/29/24 History fexofenadine 60 mg tablet (Shannan 180 mg PO Q24H 05/24/24 06/29/24 History Allergy) flecainide 100 mg tablet 100 mg PO ONCE PRN atrial 05/24/24 06/29/24 Rx fibrillation #7 tabs triamcinolone acetonide 55 mcg 2 spray intranasal QDAY PRN 05/24/24 06/29/24 History nasal spray aerosol (Nasacort) metoprolol tartrate 100 mg tablet 100 mg PO BID #180 tabs 06/04/24 06/29/24 Rx potassium chloride 10 mEq 10 meq PO QDAY #90 tabs 06/04/24 06/29/24 Rx tablet,extended release(part/cryst) Have you fallen in the past year?: No [facility] Medical History Palpitations RAMSEY (obstructive sleep apnea) Bronchitis Hypersomnia Pure hypercholesterolemia Essential (primary) hypertension Paroxysmal atrial fibrillation New-onset atrial fibrillation with RVR Atrial fibrillation Narda (more content not included)... [facility] (FAMPWS ) -------- ANDREA PIEDRA ([id number]) 1960 M Date Time Provider Department 06/07/24 6:00 PM ALAN WARD During your visit today, we recorded the following information about you: Temperature Pulse Blood pressure Weight 97.4 degrees 68/minute 138/82 109.8 kg Alan Ward MD 06/07/2024 6:17 PM Signed Patient presents with: Sinusitis HPI: Patient presents today for office visit for follow up. ENT: Patient complains of sinus pressure. Duration: 10 days Fever: No. Headache: Yes. Sore throat: No. Ear pain: muffled. Nasal drainage: Yes. Cough: very little. Shortness of breath: No. Nausea: No. Vomiting: No. Diarrhea: No. Previous treatment: using tylenol. Very fatigued. Not getting worse but not improving. Having sinus pressure. "Bad head cold" that did not go away. No covid done at home. Follow up shoulder pain. Going to PT but didn't feel like was getting very far. Was ordered Celebrex did take it and took the edge off. Afraid to continue take Celebrex until he met with PCP to discuss medication. Back is much better. MEDICATIONS: Current Outpatient Medications Medication Sig LORazepam (ATIVAN) 0.5 mg Take 1 tablet by mouth three times a day as needed (anxiety) for up to 90 days. aspirin, enteric coated (ECOTRIN LOW STRENGTH) 81 mg EC tablet Take 81 mg by mouth once daily. benazepril (LOTENSIN) 20 mg tablet Take 1 tablet by mouth two times a day. dilTIAZem CD (CARDIZEM CD, CARTIA XT) 240 mg 24 hr capsule Take 1 capsule by mouth once daily. atorvastatin (LIPITOR) 20 mg tablet Take 1 tablet by mouth once daily. triamcinolone acetonide (NASACORT NASAL) Use in the nose. fexofenadine (SHANNAN) 180 mg tablet Take 180 mg by mouth once daily. calcium carbonate (TUMS ORAL) Take 2 tablets by mouth as needed. hydroCHLOROthiazide (HYDRODIURIL, ESIDRIX) 12.5 mg tablet Take 12.5 mg by mouth twice daily. melatonin 3 mg capsules Take 3 mg by mouth at bedtime as needed. potassium chloride (K-TAB) 10 mEq tablet Take 10 mEq by mouth once daily. metoprolol tartrate, short acting, (LOPRESSOR) 100 mg tablet Take 100 mg by mouth twice daily. No current facility-administered medications for this visit. ALLERGIES: ALLERGIES Allergen Reactions Vicodin [Hydrocodon* Mental Status Change PAST MEDICAL HISTORY Diagnosis Date Anticoagulant long-term use Arrhythmia At risk for stroke [id number] = 1 (HTN) Essential hypertension Essential hypertension Generalized anxiety disorder Hemorrhage of gastrointestinal tract, unspecified Hemorrhoids Paroxysmal atrial fibrillation (HCC) Rectal bleeding 09/2021 Sleep apnea does not use cpap. Snoring PAST SURGICAL HISTORY Procedure Laterality Date COLONOSCOPY FLX DX W/COLLJ SPEC WHEN PFRMD 07/11/2008 Colonoscopy COLONOSCOPY FLX DX W/COLLJ SPEC WHEN PFRMD 05/26/2018 Colonoscopy ESOPHAGOGASTRODUODENOSCO PY TRANSORAL DIAGNOSTIC 05/26/2018 EGD ESOPHAGOGASTRODUODENOSCO PY TRANSORAL DIAGNOSTIC 04/02/2022 EYE SURGERY HX HEMORRHOID: RUBBERBAND, SINGLE/MULTIPLE 10/04/2021 HEMORRHOID;BAND LIGAT, SNGL/MUL 04/02/2022 HEMORRHOIDECTOMY INTERNAL RUBBER BAND LIGATIONS 05/26/2018 PROCEDURE RM-COLONSCOPY W/BX 04/02/2022 FAMILY HISTORY Problem Relation Age of Onset Heart Mother Valve Replacement COPD Mother other (history of smoking) Mother Hypertension Father Kidney failure Father kidney disease - on dialysis Heart disease Father heart valve problem Hypertension Sister Hyperlipidemia Sister other (sudden infant ) Brother other (sudden infant ) Brother Thyroid Son Prostate Cancer No Family History none Social History Tobacco Use Smoking status: Never Smokeless tobacco: Never Vaping Use Vaping status: Never Used Substance Use Topics Alcohol use: Yes Comment: very occasional Drug use: No Reviewed current medications, allergies, past medical history, surgical history, family history and social history today. REVIEW OF SYSTEMS All other reviewed and negative other than HPI. VITALS: BP 138/82 Pulse 68 Temp 36.3 ?C (97.4 ?F) (Tympanic) Wt 109.8 kg (242 lb) SpO2 98% BMI 34.72 kg/m? Last 4 Encounter Wt Readings: Date: Wt: 03/08/2024 106.6 kg (235 lb 0.2 oz) 01/14/2024 105.2 kg (232 lb) 11/30/2023 106.1 kg (233 lb 14.5 oz) 09/05/2023 106.1 kg (234 lb) PHYSICAL EXAMINATION: General appearance: Well appearing, alert, in no acute distress, well-hydrated, well nourished. Skin: Skin color, texture, turgor normal, no suspicious rashes or lesions Head: Normocephalic, no masses, lesions, tenderness or abnormalities Eyes: Anicteric sclera. Pupils are equally round and reactive to light. Extraocular movements are intact. Ears: External ears normal, canals clear. Tms are retracted. Nose/Sinuses: Nares normal, septum midline, mucosa normal, no (more content not included)... Normal [facility] Cardiology Visit Reporton Cardiology Visit Report [facility] [address] [place] [address] OFFICE VISIT Date of Service: 05/24/24 MR#: [id number] Acct: [id number] Name: ANDREA PIEDRA Rep #: [id number] : 1960 Provider: ALAN jeffrey Age/Sex: 64/M Location: [facility] [place] Status: Signed HPI HPI History of Present Illness Details: This is a 64-year-old white male who presents today for an outpatient cardiovascular visit. He has a history of paroxysmal atrial fibrillation, hyperlipidemia, and hypertension. He acknowledges chest burning sensation 1-2 times per month. He states this is located midsternal and occurs randomly. This last for hours. Sometimes this will be relieved with Tums and other times it will be relieved without intervention. He acknowledges palpitations 1-2 times per day. This is unchanged from previous and he describes this as fluttering. He denies shortness of breath with activity, shortness of breath at rest, or orthopnea. He denies lightheadedness, dizziness, near-syncope, or syncope. He continues with fatigue. Intake Vital Signs 11/26/23 12:59 12/16/23 09:06 05/24/24 09:00 Height 5 ft 11 in 5 ft 11 in 5 ft 11 in Weight: 240 lb BMI 33.5 BP 129/82 H Blood Pressure Location Lt brachial Position Sitting Respiration 16 Pulse 52 L Pulse Source NIBP Intake Visit Reasons: 6 M FU Family Support Coordinator Required: No Is patient in pain?: No Allergies hydrocodone (From Vicodin) Adverse Reaction (Verified 05/24/24 09:07) Other Medications ???Medication ???Instructions ???Recorded ???Confirmed ???Type melatonin 3 mg capsule 3 mg PO HS 03/29/19 05/24/24 History lorazepam 0.5 mg tablet 0.5 mg PO QHS PRN Anxiety 10/21/22 05/24/24 History atorvastatin 20 mg tablet 20 mg PO QHS HYPERLIPIDEMIA #90 06/26/23 05/24/24 Rx tabs benazepril 20 mg tablet 20 mg PO BID #180 tabs 06/26/23 05/24/24 Rx diltiazem HCl 240 mg 240 mg PO DAILY #90 caps 06/26/23 05/24/24 Rx capsule,extended release 24 hr hydrochlorothiazide 12.5 mg tablet 12.5 mg PO DAILY #90 tabs 06/26/23 05/24/24 Rx metoprolol tartrate 100 mg tablet 100 mg PO BID #180 tabs 06/26/23 05/24/24 Rx aspirin 81 mg chewable tablet 81 mg PO DAILY #30 tabs 11/26/23 05/24/24 Rx calcium carbonate (Tums) 200 mg PO ONCE PRN 05/24/24 05/24/24 History celecoxib 200 mg capsule 200 mg PO QDAY 05/24/24 05/24/24 History fexofenadine 60 mg tablet (Shannan 60 mg PO QDAY 05/24/24 05/24/24 History Allergy) fexofenadine 60 mg tablet (Shannan 180 mg PO Q24H 05/24/24 05/24/24 History Allergy) flecainide 100 mg tablet 100 mg PO ONCE PRN atrial 05/24/24 Rx fibrillation #7 tabs potassium chloride 10 mEq 10 meq PO QDAY 05/24/24 05/24/24 History tablet,extended release(part/cryst) triamcinolone acetonide 55 mcg 2 spray intranasal QDAY PRN 05/24/24 05/24/24 History nasal spray aerosol (Nasacort) Ejection fraction %: 70 Have you fallen in the past year?: No Nurse's Note: Had Ziopatch and labs at [facility] in November 2023. Will try to get records. [facility] Medical History Palpitations RAMSEY (obstructive sleep apnea) Bronchitis Hypersomnia Pure hypercholesterolemia Essential (primary) hypertension Paroxysmal atrial fibrillation New-onset atrial fibrillation with RVR Atrial fibrillation Surgical History History of cataract extraction Family History Mother Heart disease valve replacement Father Hypertension Kidney disease Heart disease valve problems Social History household members: spouse housing: house current occupational status: employed current occupation: [employer] [address] [place] [address] pets and animals: Yes pets and animals: dog(s) Smoking Status: Never smoker second hand exposure: No alcohol intake: current alcohol intake frequency: holidays/special occasions only Alcohol type: beer and wine substance use type: does not use caffeine: Yes Type: coffee Number of servings: 1 ROS Const Const: Positive for fatigue (Some days more tired than others-unchanged); Negative for weakness Eyes Eyes: Negative for change in vision ENT ENT: Negative for dizziness or balance problems Cardio Chest Pain: Yes Frequency: monthly (1-2 times per month) Character: other (burning) Onset: other (Randomly) Location: mid sternal Duration: hours Relieving: other (Sometimes Tums help otherwise it goes away on its own) Palpitations: Yes (notices more when relaxed. Occurs 1-2 times per day. Unchanged) feels like its: other (fluttering) Edema: None Muscle aches with walking: None Additional Details: Wore Zio patch through PCP in (more content not included)... Normal [facility] Absolute lymphocyte countOrd ered By: Avila Orellana on 08-07-2022 Lymphocytes Auto (Unsp spec) [#/Vol] 3.14 10*3/uL 0.83-4.51 [facility] Basophil percentageOrdered B y: Avila Orellana on 08-07-2022 Basophils/100 WBC (Bld) 0.6 % 0-1 [facility] Chloride [Moles/Vol] 103 mmol/L 98-107 [facility] Eosinophils/100 WBC (Bld) 3.7 % 0-5 [facility] Glucose [Mass/Vol] 118 mg/dL 74-106 [facility] Comment on above: Fasting Glucose resu lt from 100 to 125 mg/dL suggests IMPAIRED HOMEOSTASIS per A.D.A. criteria. Neutrophils (Bld) [#/Vol] 4.6 10*3/uL 2.0-7.7 [facility] Neutrophils/100 WBC (Bld) 47.9 % 47-70 [facility] Potassium [Moles/Vol] 3.4 mmol/L 3.5-5.1 [facility] Sodium [Moles/Vol] 139 mmol/L 136-145 [facility] WBC (Bld) [#/Vol] 9.7 10*3/uL 4.4-11.0 [facility] Blood erythrocytes count (nu mber/volume)Ordered By: Avila Orellana on 08-07-2022 RBC (Bld) [#/Vol] 5.01 10*6/uL 4.6-6.2 [facility] Blood hemoglobin measurement (mass/volume)Ordered By: Avila Orellana on 08-07-2022 Hemoglobin (Bld) [Mass/Vol] 13.8 g/dL 13.0-16.5 [facility] Blood lymphocytes/100 leukoc ytesOrdered By: Avila Orellana on 08-07-2022 Lymphocytes/100 WBC (Bld) 32.5 % 19-41 [facility] Blood monocytes/100 leukocyt esOrdered By: Avila Orellana on 08-07-2022 Monocytes/100 WBC (Bld) 15.0 % 0-10 [facility] Blood platelet mean volumeOr dered By: Avila Orellana on 08-07-2022 Platelet mean volume (Bld) [Entitic vol] 9.8 fL 6.2-12.0 [facility] Determination of erythrocyte mean corpuscular volume (MCV)Ordered By: Avila Orellana on 08-07-2022 MCV (RBC) [Entitic vol] 85.2 fL 80-94 [facility] Hematocrit Auto (Bld) [Volum e fraction]Ordered By: Avila Orellana on 08-07-2022 Hematocrit (Bld) [Volume fraction] 42.7 % 40-54 [facility] Laboratory - Chemistry and C hemistry - challengeOrdered By: Avila Orellana on 08-07-2022 CO2 [Moles/Vol] 30.0 mmol/L 21.0-32.0 [facility] Magnesium [Mass/Vol] 2.2 mg/dL 1.6-2.6 [facility] Urea nitrogen/Creatinine [Mass ratio] 21.6 mg/mg 10-20 [facility] Laboratory - Hematology and Cell countsOrdered By: Avila Orellana on 08-07-2022 Erythrocyte distribution width (RBC) [Entitic vol] 42.2 fL 35.1-43.9 [facility] Erythrocyte distribution width (RBC) [Ratio] 13.5 % 11.6-14.6 [facility] Immature granulocytes/100 WBC (Bld) 0.300 % 0.0-0.9 [facility] Comment on above: IG% - Immature Granu locytes (promyelocytes, myelocytes and metamyelocytes) > 1% indicates that a LEFT SHIFT is Present. MCH (RBC) [Entitic mass] 27.5 pg 27.0-32.0 [facility] Nucleated RBC/100 WBC (Bld) [Ratio] 0 % 0-5 [facility] MCHC Auto (RBC) [Mass/Vol]Or dered By: Avila Orellana on 08-07-2022 MCHC (RBC) [Mass/Vol] 32.3 g/dL 32-36 [facility] No Panel InformationOrdered By: Avila Orellana on 08-07-2022 Estimated Creatinine Clearance Calc 99.54 ml/min [facility] Estimated GFR (MDRD) Amer 120 mL/min >60 [facility] Comment on above: GFR Calc Estimated GFR (MDRD) Non-Af Amer 100 mL/min >60 [facility] Comment on above: Non- GFR Calc Platelets bldOrdered By: Mohinder Orellana on 08-07-2022 Platelets (Bld) [#/Vol] 353 10*3/uL 150-450 [facility] Serum or plasma calcium jenelle urement (mass/volume)Ordered By: Avila Orellana on 08-07-2022 Calcium [Mass/Vol] 9.1 mg/dL 8.5-10.1 [facility] Serum or plasma creatinine m easurement (mass/volume)Ordered By: Avila Orellana on 08-07-2022 Creatinine [Mass/Vol] 0.83 mg/dL 0.70-1.30 [facility] Comment on above: The validity of the calculated GFR & GFRAA in patients over 70 years has not been determined. Clinical correlation is essential. Serum or plasma urea nitroge n measurement (mass/volume)Ordered By: Avila Orellana on 08-07-2022 Urea nitrogen [Mass/Vol] 18 mg/dL 01-07 [facility] Thin prep Papanicolaou smear with manual screeningOrdered By: Avila Orellana on 08-07-2022 Thin prep Papanicolaou smear with manual screening 6 11-04 [facility] CBC W Auto Differential pane l (Bld)on 04-04-2022 Abs Immature Gran <0.10 k/uL [facility] Basophils (Bld) [#/Vol] 0.07 10*3/uL <0.11 k/uL [facility] Basophils/100 WBC (Bld) 0.7 % [facility] Differential cell count method Nom (Bld) Auto [facility] Eosinophils (Bld) [#/Vol] 0.12 10*3/uL <0.46 k/uL [facility] Eosinophils/100 WBC (Bld) 1.2 % [facility] Erythrocyte distribution width (RBC) [Ratio] 13.7 % 11.5 - 15.0 % [facility] Hematocrit (Bld) [Volume fraction] 39.1 % 39.0 - 51.0 % [facility] Hemoglobin (Bld) [Mass/Vol] 12.9 g/dL Low 13.0 - 17.0 g/dL [facility] Immature Gran % 0.2 % [facility] Lymphocytes (Bld) [#/Vol] 1.65 10*3/uL 1.00 - 4.00 k/uL [facility] Lymphocytes/100 WBC (Bld) 16.2 % [facility] MCH (RBC) [Entitic mass] 28.2 pg 26.0 - 34.0 pg [facility] MCHC (RBC) [Mass/Vol] 33.0 g/dL 30.5 - 36.0 g/dL [facility] MCV (RBC) [Entitic vol] 85.4 fL 80.0 - 100.0 fL [facility] Monocytes (Bld) [#/Vol] 0.79 10*3/uL <0.87 k/uL [facility] Monocytes/100 WBC (Bld) 7.7 % [facility] Neutrophils (Bld) [#/Vol] 7.56 10*3/uL High 1.45 - 7.50 k/uL [facility] Neutrophils/100 WBC (Bld) 74.0 % [facility] Nucleated RBC (Bld) [#/Vol] <0.01 k/uL [facility] Nucleated RBC/100 WBC (Bld) [Ratio] 0.0 /100 WBC [facility] Platelet mean volume (Bld) [Entitic vol] 9.4 fL 9.0 - 12.7 fL [facility] Platelets (Bld) [#/Vol] 355 10*3/uL 150 - 400 k/uL [facility] RBC (Bld) [#/Vol] 4.58 10*6/uL 4.20 - 6.0 0 m/uL [facility] WBC (Bld) [#/Vol] 10.21 10*3/uL 3.70 - 11 .00 k/uL [facility] UA DIP, URINE (POC)on 2021 BILIRUBIN UA (POCT) Negative Negative [facility] CLARITY UA (POCT) Clear [facility] COLOR UA (POCT) Light yellow [facility] GLUCOSE UA (POCT) Negative Negative mg/dL [facility] HEMOGLOBIN/BLOOD UA (POCT) Negative Negative [facility] KETONE UA (POCT) Negative Negative mg/dL [facility] LEUKOCYTES UA (POCT) Negative Negative [facility] NITRITE UA (POCT) Negative Negative [facility] PH UA (POCT) 6.5 4.5 - 8.0 [facility] Protein Ql (U) Negative Negative mg/dL [facility] SPECIFIC GRAVITY UA (POCT) 1.015 1.005 - 1.030 [facility] UROBILINOGEN UA (POCT) 0.2 E.U./dL Michelle l E.U./dL [facility] Absolute lymphocyte counton 12-17-2021 Lymphocytes Auto (Unsp spec) [#/Vol] 0.62 10*3/uL 0.83-4.51 [facility] Work Phone: Basophil percentageon 2021 Basophil percentage 0 SEEN /hpf 0-5 [facility] Work Phone: Basophils/100 WBC (Bld) 0.4 % 0-1 [facility] Work Phone: Bilirubin [Mass/Vol] 0.70 mg/dL 0.20-1.00 [facility] Work Phone: Comment on above: For patients on eltr ombopag therapy, use of Dimension Edwards TBIL is not recommended. Chloride [Moles/Vol] 100 mmol/L 98-107 [facility] Work Phone: Eosinophils/100 WBC (Bld) 2.2 % 0-5 [facility] Work Phone: Glucose [Mass/Vol] 98 mg/dL 74-106 [facility] Work Phone: Neutrophils (Bld) [#/Vol] 8.6 10*3/uL 2.0-7.7 [facility] Work Phone: Neutrophils/100 WBC (Bld) 81.7 % 47-70 [facility] Work Phone: Potassium [Moles/Vol] 3.6 mmol/L 3.5-5.1 [facility] Work Phone: Protein [Mass/Vol] 8.0 g/dL 6.4-8.2 [facility] Work Phone: Sodium [Moles/Vol] 136 mmol/L 136-145 [facility] Work Phone: WBC (Bld) [#/Vol] 10.5 10*3/uL 4.4-11.0 [facility] Work Phone: Bilirubin Test strip Ql (U)o n 12-17-2021 Bilirubin Ql (U) Negative Negative [facility] Work Phone: Blood erythrocytes count (nu mber/volume)on 12-17-2021 RBC (Bld) [#/Vol] 5.18 10*6/uL 4.6-6.2 [facility] Work Phone: Blood hemoglobin measurement (mass/volume)on 12-17-2021 Hemoglobin (Bld) [Mass/Vol] 14.5 g/dL 13.0-16.5 [facility] Work Phone: Blood lymphocytes/100 leukoc yteson 12-17-2021 Lymphocytes/100 WBC (Bld) 5.9 % 19-41 [facility] Work Phone: [phone] Blood monocytes/100 leukocyt eson 12-17-2021 Monocytes/100 WBC (Bld) 9.4 % 0-10 [facility] Work Phone: [phone] Blood platelet mean volumeon 12-17-2021 Platelet mean volume (Bld) [Entitic vol] 9.5 fL 6.2-12.0 [facility] Work Phone: Determination of erythrocyte mean corpuscular volume (MCV)on 12-17-2021 MCV (RBC) [Entitic vol] 86.1 fL 80-94 [facility] Work Phone: Hematocrit Auto (Bld) [Volum e fraction]on 12-17-2021 Hematocrit (Bld) [Volume fraction] 44.6 % 40-54 [facility] Work Phone: Ketones Test strip Ql (U)on 12-17-2021 Ketones Ql (U) Negative Negative [facility] Work Phone: Laboratory - Chemistry and C hemistry - challengeon 12-17-2021 ALP [Catalytic activity/Vol] 177 U/L 45-117 [facility] Work Phone: ALT [Catalytic activity/Vol] 143 U/L 16-61 [facility] Work Phone: [phone] CO2 [Moles/Vol] 28.0 mmol/L 21.0-32.0 [facility] Work Phone: Globulin (S) [Mass/Vol] 4.3 g/dL 2.2-4.2 [facility] Work Phone: Lipase [Catalytic activity/Vol] 215 U/L 73-393 [facility] Work Phone: [phone] Urea nitrogen/Creatinine [Mass ratio] 13.4 mg/mg 10-20 [facility] Work Phone: [phone] Laboratory - Hematology and Cell countson 12-17-2021 Erythrocyte distribution width (RBC) [Entitic vol] 41.7 fL 35.1-43.9 [facility] Work Phone: [phone] Erythrocyte distribution width (RBC) [Ratio] 13.2 % 11.6-14.6 [facility] Work Phone: [phone] Immature granulocytes/100 WBC (Bld) 0.400 % 0.0-0.9 [facility] Work Phone: [phone] Comment on above: IG% - Immature Granu locytes (promyelocytes, myelocytes and metamyelocytes) > 1% indicates that a LEFT SHIFT is Present. MCH (RBC) [Entitic mass] 28.0 pg 27.0-32.0 [facility] Work Phone: [phone] Nucleated RBC/100 WBC (Bld) [Ratio] 0 % 0-5 [facility] Work Phone: [phone] MCHC Auto (RBC) [Mass/Vol]on 12-17-2021 MCHC (RBC) [Mass/Vol] 32.5 g/dL 32-36 [facility] Work Phone: [phone] Mucus LM Ql (Urine sed)on Mucus Ql (Urine sed) 0 SEEN /hpf [facility] Work Phone: [phone] Nitrite Test strip Ql (U)on 12-17-2021 Nitrite Ql (U) Negative Negative [facility] Work Phone: [phone] Panel Informationon 12-17 Estimated Creatinine Clearance Calc 92.96 ml/min [facility] Work Phone: [phone] Estimated GFR (MDRD) Amer 111 mL/min >60 [facility] Work Phone: [phone] Comment on above: GFR Calc Estimated GFR (MDRD) Non-Af Amer 92 mL/min >60 [facility] Work Phone: Comment on above: Non- GFR Calc Platelets bldon 12-17-2021 Platelets (Bld) [#/Vol] 363 10*3/uL 150-450 [facility] Work Phone: Protein Test strip Ql (U)on 12-17-2021 Protein Ql (U) Negative Negative [facility] Work Phone: [phone] Serum or plasma albumin jenelle urement (mass/volume)on 12-17-2021 Albumin [Mass/Vol] 3.7 g/dL 3.2-5.0 [facility] Work Phone: [phone] Serum or plasma albumin/glob ulin mass ratioon 12-17-2021 Albumin/Globulin [Mass ratio] 0.9 {ratio} 0.9-2.4 [facility] Work Phone: Serum or plasma calcium jenelle urement (mass/volume)on 12-17-2021 Calcium [Mass/Vol] 9.0 mg/dL 8.5-10.1 [facility] Work Phone: [phone] Serum or plasma creatinine m easurement (mass/volume)on 12-17-2021 Creatinine [Mass/Vol] 0.90 mg/dL 0.70-1.30 [facility] Work Phone: Comment on above: The validity of the calculated GFR & GFRAA in patients over 70 years has not been determined. Clinical correlation is essential. Serum or plasma urea nitroge n measurement (mass/volume)on 12-17-2021 Urea nitrogen [Mass/Vol] 12 mg/dL 7-18 [facility] Work Phone: [phone] Squamous epithelial cells de tection in urine sediment by light microscopyon 12-17-2021 Epithelial cells.squamous LM Ql (Urine sed) 0 SEEN /hpf 0-5 [facility] Work Phone: [phone] Thin prep Papanicolaou smear with manual screeningon 12-17-2021 Thin prep Papanicolaou smear with manual screening 94 U/L 15-37 [facility] Work Phone: [phone] Thin prep Papanicolaou smear with manual screening 8 5-15 [facility] Work Phone: Urine blood detectionon 11-22 RBC Ql (U) Negative Negative [facility] Work Phone: RBC Ql (U) 0 SEEN /hpf 0-5 [facility] Work Phone: Urine clarityon 12-17-2021 Clarity (U) Clear Clear [facility] Work Phone: Urine color determinationon 12-17-2021 Color (U) Yellow Yellow [facility] Work Phone: Urine glucose detectionon Glucose Ql (U) Normal mg/dl Normal [facility] Work Phone: Urine leukocyte esterase det ection by dipstickon 12-17-2021 Leukocyte esterase Test strip Ql (U) Negative Negative [facility] Work Phone: Urine pHon 12-17-2021 pH (U) 7.0 [pH] 5.0 - 8.0 [facility] Work Phone: Urine sediment bacteria coun t by microscopy (number/high power field)on 12-17-2021 Bacteria LM.HPF (Urine sed) [#/Area] 0 /[HPF] None Seen [facility] Work Phone: Urine specific gravity measu rementon 12-17-2021 Specific gravity (U) [Rel density] 1.010 1.002-1.030 [facility] Work Phone: Urobilinogen Auto test strip Ql (U)on 12-17-2021 Urobilinogen Ql (U) Normal mg/dl Normal [facility] Work Phone: UA DIP, URINE (POC)on 2021 BILIRUBIN UA (POCT) Negative Negative [facility] CLARITY UA (POCT) Clear [facility] COLOR UA (POCT) Yellow [facility] GLUCOSE UA (POCT) Negative Negative mg/dL [facility] HEMOGLOBIN/BLOOD UA (POCT) Negative Negative [facility] KETONE UA (POCT) Negative Negative mg/dL [facility] LEUKOCYTES UA (POCT) Negative Negative [facility] NITRITE UA (POCT) Negative Negative [facility] PH UA (POCT) 7.0 4.5 - 8.0 [facility] Protein Ql (U) Negative Negative mg/dL [facility] SPECIFIC GRAVITY UA (POCT) 1.025 1.005 - 1.030 [facility] UROBILINOGEN UA (POCT) 0.2 E.U./dL Michelle l E.U./dL [facility] XR ABDOMEN 1V SUPINEon 11-02 [facility] XR Abdomen Supine and Uprigh ton 11-02-2021 IMPRESSION: Nonobstructive bowel gas pattern with mild fecal retention. Last Marker: VICENTA Transcribe Date/Time: Nov 02 2021 3:53P Dictated by : KAELA CORDOVA MD This examination was interpreted and the report reviewed and electronically signed by: KAELA CORDOVA MD on Nov 02 2021 4:00PM EST [email or web address] _DIVISION OF RADIOLOGY * * *Final Report* * * DATE OF EXAM: Nov 02 2021 3:28PM WOX [id number] - XR ABDOMEN 1V SUPINE / PROCEDURE REASON: Lower abdominal pain * * * * Physician Interpretation * * * * EXAMINATION: XR ABDOMEN 1V SUPINE HISTORY: Lower abdominal pain. TECHNIQUE: XR ABDOMEN 1V SUPINE Laterality: NOT APPLICABLE Number of different views (projections): 1 M: XB_1 COMPARISON: There are no prior relevant abdominal plain film examinations available for comparison within the [facility]. Comparison is made to prior CT abdomen pelvis from 09/12/2016 RESULT: Supine views of the abdomen demonstrate a nonobstructive bowel gas pattern with mild fecal retention. Gas and fecal residue partially obscure the renal shadows but there are no obvious pathologic calculi within this limitation. Punctate 4 x 2 mm calcification on the right upper quadrant lies outside the right kidney shadow. It is nonspecific but may be soft tissue in etiology. The soft tissues and bony structures are unremarkable. Phleboliths are seen within the true pelvis on the left and grossly unchanged from prior CT. [email or web address] _DIVISION OF RADIOLOGY Provider, Sang Pena - 11/02/2021 * * *Final Report* * * DATE OF EXAM: Nov 02 2021 3:28PM WOX [id number] - XR ABDOMEN 1V SUPINE / PROCEDURE REASON: Lower abdominal pain * * * * Physician Interpretation * * * * EXAMINATION: XR ABDOMEN 1V SUPINE HISTORY: Lower abdominal pain. TECHNIQUE: XR ABDOMEN 1V SUPINE Laterality: NOT APPLICABLE Number of different views (projections): 1 M: XB_1 COMPARISON: There are no prior relevant abdominal plain film examinations available for comparison within the [facility]. Comparison is made to prior CT abdomen pelvis from 09/12/2016 RESULT: Supine views of the abdomen demonstrate a nonobstructive bowel gas pattern with mild fecal retention. Gas and fecal residue partially obscure the renal shadows but there are no obvious pathologic calculi within this limitation. Punctate 4 x 2 mm calcification on the right upper quadrant lies outside the right kidney shadow. It is nonspecific but may be soft tissue in etiology. The soft tissues and bony structures are unremarkable. Phleboliths are seen within the true pelvis on the left and grossly unchanged from prior CT. IMPRESSION IMPRESSION: Nonobstructive bowel gas pattern with mild fecal retention. Last Marker: VICENTA Transcribe Date/Time: Nov 02 2021 3:53P Dictated by : KAELA CORDOVA MD This examination was interpreted and the report reviewed and electronically signed by: KAELA CORDOVA MD on Nov 02 2021 4:00PM EST [facility] Radiology Study observation (narrative) [facility] XR Abdomen Supine and Uprigh tOrdered By: [facility] Provider on 11-02-2021 [facility] HEMOCCULT SINGLE B/Oon 09-26 Guaiac Negative neg - pos [facility] Quality Check Yes [facility] Basophil percentageon 2021 Chloride [Moles/Vol] 105 mmol/L 98-107 [facility] Work Phone: Glucose [Mass/Vol] 122 mg/dL 74-106 [facility] Work Phone: Comment on above: Fasting Glucose resu lt from 100 to 125 mg/dL suggests IMPAIRED HOMEOSTASIS per A.D.A. criteria. Potassium [Moles/Vol] 4.5 mmol/L 3.5-5.1 [facility] Work Phone: Sodium [Moles/Vol] 132 mmol/L 136-145 [facility] Work Phone: INR in Blood by Coagulation assayon 09-03-2021 INR Coag (Bld) [Relative time] 1.2 {INR} [facility] Work Phone: [phone] Laboratory - Chemistry and C hemistry - challengeon 09-03-2021 CO2 [Moles/Vol] 21.0 mmol/L 21.0-32.0 [facility] Work Phone: Urea nitrogen/Creatinine [Mass ratio] 16.1 mg/mg 10-20 [facility] Work Phone: Laboratory - Coagulationon 0 09-03-2021 PT Coag (PPP) [Time] 14.7 s 11.7-14.9 [facility] Work Phone: No Panel Informationon 09-03 Estimated GFR (MDRD) Amer 125 mL/min >60 [facility] Work Phone: [phone] Comment on above: GFR Calc Estimated GFR (MDRD) Non-Af Amer 103 mL/min >60 [facility] Work Phone: Comment on above: Non- GFR Calc Serum or plasma calcium jenelle urement (mass/volume)on 09-03-2021 Calcium [Mass/Vol] 9.7 mg/dL 8.5-10.1 [facility] Work Phone: Serum or plasma creatinine m easurement (mass/volume)on 09-03-2021 Creatinine [Mass/Vol] 0.81 mg/dL 0.70-1.30 [facility] Work Phone: Comment on above: The validity of the calculated GFR & GFRAA in patients over 70 years has not been determined. Clinical correlation is essential. Serum or plasma urea nitroge n measurement (mass/volume)on 09-03-2021 Urea nitrogen [Mass/Vol] 13 mg/dL 7-18 [facility] Work Phone: [phone] Thin prep Papanicolaou smear with manual screeningon 03-14-2022 Thin prep Papanicolaou smear with manual screening 6 11-04 [facility] Work Phone: CNOVon 05-02-2021 CNOV Office Visit (MERON CHOI) -------- ANDREA PIEDRA ([id number]) 1960 M Date Time Provider Department 05/02/21 1:20 PM JIM MONSON During your visit today, we recorded the following information about you: Pulse Blood pressure Weight Height 57/minute 150/90 102.5 kg 1.803 m Jim Monson MD 09/21/2021 9:12 AM Addendum PRIMARY CARE PHYSICIAN: Alan Ward [address] [place] [address] REFERRING PHYSICIAN: Diaz Gonzalez MD ([facility]) [address] [id number] Patient Care Team: Alan Ward MD as PCP - General (Family Practice) Diaz Gonzalez as Specialty Professional Soccer Player (Cardiology) Juan Zapata as Specialty Professional Soccer Player (Internal Medicine) CHIEF COMPLAINT: Evaluation of atrial fibrillation HISTORY OF PRESENT ILLNESS: Mr. Piedra is a 60 year old male who presents today with his for evaluation of atrial fibrillation. He states the atrial fibrillation was diagnosed a couple of years ago, but he had been experiencing intermittent brief palpitations for several years prior to that. When the atrial fibrillation was diagnosed, he had been at work and suddenly felt his heart racing. He just did not feel well. He went to a local urgent care and was found to be in atrial fibrillation with rapid ventricular response rates. He was sent to the [facility], admitted to the hospital. 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 The atrial fibrillation spontaneously converted back to sinus rhythm. He has been treated with rate controlling medication and oral anticoagulation therapy. He states he experiences occasional episodes, with the episodes lasting a few hours although over time has become longer duration. One episode in March 2021 lasted for about 4 days. The episode prior to that was in November 2020 and lasted about one or 2 days. Symptoms include palpitations, exertional shortness of breath, but not syncope or chest pain. He is not aware of any triggering or exacerbating factors for the arrhythmia, such as caffeine or alcohol intake. He avoids alcohol entirely. He drinks about 1 cup of coffee each morning. He does periodically check his heart rhythm with his wrist monitor FitBit. He denies chest pain, shortness of breath, orthopnea, PND, lightheadedness or syncope. I have confirmed and edited as necessary, the PFSH and ROS obtained by others. PAST MEDICAL HISTORY Diagnosis Date - Anticoagulant long-term use - Arrhythmia - At risk for stroke [id number] = 1 (HTN) - Essential hypertension Essential hypertension - Generalized anxiety disorder - Hemorrhage of gastrointestinal tract, unspecified - Paroxysmal atrial fibrillation (HCC) - Sleep apnea does not use cpap. - Snoring PAST SURGICAL HISTORY Procedure Laterality Date - COLONOSCOP W/ OR W/O [facility] SPEC 07/11/2008 Colonoscopy - COLONOSCOP W/ OR W/O [facility] SPEC 05/26/2018 Colonoscopy - EGD W/O OR W/BRUSH/WASH 05/26/2018 EGD - HEMORRHOID;BAND LIGAT, SNGL/MUL 05/26/2018 SOCIAL HISTORY Social History Tobacco Use - Smoking status: Never Smoker - Smokeless tobacco: Never Used Vaping Use - Vaping Use: Never used Substance Use Topics - Alcohol use: Yes Comment: very occasional - Drug use: No FAMILY HISTORY Problem Relation Age of Onset - Heart Mother Valve Replacement - COPD Mother - other (history of smoking) Mother - Hypertension Father - Kidney failure Father kidney disease - on dialysis - Heart disease Father heart valve problem - Hypertension Sister - Hyperlipidemia Sister - other (sudden ) Brother - other (sudden infant ) Brother - Thyroid Son - Prostate Cancer No Family History none ALLERGIES: ALLERGIES Allergen Reactions - Vicodin [Hydrocodon* Mental Status Change MEDICATIONS: calcium carbonate (TUMS ORAL), Take 2 tablets by mouth as needed. hydroCHLOROthiazide (HYDRODIURIL, ESIDRIX) 12.5 mg tablet, Take 12.5 mg by mouth once daily. atorvastatin (LIPITOR) 20 mg tablet, Take 1 tablet by mouth once daily. LORazepam (ATIVAN) 0.5 mg, Take 1 tablet by mouth three times daily as needed (anxiety) for up to 90 days. XARELTO 20 mg tablet, Take 1 tablet by mouth once daily. melatonin 3 mg capsules, Take 3 mg by mouth at bedtime as needed. potassium chloride (K-TAB) 10 mEq tablet, Take 10 mEq by mouth once daily. diltiazem CD (CARDIZEM CD, CARTIA XT) 240 mg 24 hr capsule, Take 1 capsule by mouth once daily. benazepril (LOTENSIN) 20 mg tablet, Take 1 tablet by mouth once daily. metoprolol tartrate, short acting, (LOPRESSOR) 100 mg tablet, Take 100 mg by mouth twice daily. loratadine (CLARITIN) 10 mg tablet, Take 10 mg by mouth once daily. REVIEW OF SYSTEMS: Review of Systems Constitutional: Negative for chills, fever and weight loss. Respiratory: Negative for cough, h (more content not included)... Normal [facility] No Panel Information SARS-CoV-2 & FLU Antigen (Rapid) [facility] Work Phone: Vital Signs Date Time Vital Sign Value Performing Clinician Facility 02-08-2025 13:54-0400 Body mass index (BMI) [Ratio] 33.53 kg/m2 Joseph Loera APRN.[facility] Work Phone: [facility] 02-08-2025 13:54-0400 Body weight 106 kg Joseph Loera APRN.[facility] Work Phone: [facility] 02-08-2025 13:54-0400 Diastolic blood pressure 81 mm[Hg] Joseph Loera APRN.[facility] Work Phone: [facility] 02-08-2025 13:54-0400 Heart rate 69 /min Joseph Loera APRN.[facility] Work Phone: [facility] 02-08-2025 13:54-0400 Systolic blood pressure 142 mm[Hg] Joseph Loera APRN.[facility] Work Phone: [facility] 01-11-2025 08:09-0400 Body height 180.[address] Alan Ward MD Work Phone: [facility] 01-11-2025 08:09-0400 Body mass index (BMI) [Ratio] 32.6 kg/m2 Dr. Alan Ward MD Work Phone: [facility] 01-11-2025 08:09-0400 Body weight 106.[address] Alan Ward MD Work Phone: [facility] 01-11-2025 08:09-0400 Diastolic blood pressure 86 mm[Hg] Dr. Alan Ward MD Work Phone: [facility] 01-11-2025 08:09-0400 Heart rate 57 /min Dr. Alan Ward MD Work Phone: [facility] 01-11-2025 08:09-0400 Respiratory rate 16 /min Dr. Alan Ward MD Work Phone: [facility] 01-11-2025 08:09-0400 Systolic blood pressure 134 mm[Hg] Dr. Alan Ward MD Work Phone: [facility] 10-18-2024 14:32-0400 Body mass index (BMI) [Ratio] 32.86 kg/m2 Alan Ward MD Work Phone: [facility] 10-18-2024 14:32-0400 Body weight 103.87 kg Alan Ward MD Work Phone: [facility] 10-18-2024 14:32-0400 Diastolic blood pressure 70 mm[Hg] Alan Ward MD Work Phone: [facility] 10-18-2024 14:32-0400 Heart rate 78 /min Alan Ward MD Work Phone: [facility] 10-18-2024 14:32-0400 SaO2% (BldA) [Mass fraction] 97 % Alan Ward MD Work Phone: [facility] 10-18-2024 14:32-0400 Systolic blood pressure 122 mm[Hg] Alan Ward MD Work Phone: [facility] 09-17-2024 08:46-0400 Body height 177.8 cm Alan Ward MD Work Phone: [facility] 09-17-2024 08:46-0400 Body mass index (BMI) [Ratio] 33 kg/m2 Alan Ward MD Work Phone: [facility] 09-17-2024 08:46-0400 Body temperature 97.81 [degF] Alan Ward MD Work Phone: [facility] 09-17-2024 08:46-0400 Body weight 104.33 kg Alan Ward MD Work Phone: [facility] 09-17-2024 08:46-0400 Diastolic blood pressure 72 mm[Hg] Alan Ward MD Work Phone: [facility] 09-17-2024 08:46-0400 Heart rate 61 /min Alan Ward MD Work Phone: [facility] 09-17-2024 08:46-0400 SaO2% (BldA) [Mass fraction] 98 % Alan Ward MD Work Phone: [facility] 09-17-2024 08:46-0400 Systolic blood pressure 116 mm[Hg] Alan Ward MD Work Phone: [facility] 09-09-2024 07:05-0400 Body mass index (BMI) [Ratio] 32.58 kg/m2 Katrin Clutter PA-C Work Phone: [facility] 09-09-2024 07:05-0400 Body temperature 97 [degF] Katrin Clutter PA-C Work Phone: [facility] 09-09-2024 07:05-0400 Body weight 103 kg Katrin Clutter PA-C Work Phone: [facility] 09-09-2024 07:05-0400 Diastolic blood pressure 81 mm[Hg] Katrin Clutter PA-C Work Phone: [facility] 09-09-2024 07:05-0400 Heart rate 62 /min Katrin Clutter PA-C Work Phone: [facility] 09-09-2024 07:05-0400 Respiratory rate 20 /min Katrin Clutter PA-C Work Phone: [facility] 09-09-2024 07:05-0400 SaO2% (BldA) [Mass fraction] 99 % Katrin Clutter PA-C Work Phone: [facility] 09-09-2024 07:05-0400 Systolic blood pressure 138 mm[Hg] Katrin Clutter PA-C Work Phone: [facility] 09-06-2024 08:13-0400 Body mass index (BMI) [Ratio] 32.57 kg/m2 Alan Ward MD Work Phone: [facility] 09-06-2024 08:13-0400 Body weight 102.97 kg Alan Ward MD Work Phone: [facility] 09-06-2024 08:13-0400 Diastolic blood pressure 62 mm[Hg] Alan Ward MD Work Phone: [facility] 09-06-2024 08:13-0400 Heart rate 76 /min Alan Ward MD Work Phone: [facility] 09-06-2024 08:13-0400 SaO2% (BldA) [Mass fraction] 100 % Alan Ward MD Work Phone: [facility] 09-06-2024 08:13-0400 Systolic blood pressure 124 mm[Hg] Alan Ward MD Work Phone: [facility] 08-24-2024 18:29-0500 Body mass index (BMI) [Ratio] 33.12 kg/m2 Krislyn Aberegg PA Work Phone: [facility] 08-24-2024 18:29-0500 Body temperature 98.8 [degF] Krislyn Aberegg PA Work Phone: [facility] 08-24-2024 18:29-0500 Body weight 104.7 kg Krislyn Aberegg PA Work Phone: [facility] 08-24-2024 18:29-0500 Diastolic blood pressure 84 mm[Hg] Krislyn Aberegg PA Work Phone: [facility] 08-24-2024 18:29-0500 Heart rate 94 /min Krislyn Aberegg PA Work Phone: [facility] 08-24-2024 18:29-0500 Respiratory rate 16 /min Krislyn Aberegg PA Work Phone: [facility] 08-24-2024 18:29-0500 SaO2% (BldA) [Mass fraction] 96 % Krislyn Aberegg PA Work Phone: [facility] 08-24-2024 18:29-0500 Systolic blood pressure 124 mm[Hg] Krislyn Aberegg PA Work Phone: [facility] 08-16-2024 13:05-0500 Body height 177.8 cm Alan Ward MD Work Phone: [facility] 08-16-2024 13:05-0500 Body mass index (BMI) [Ratio] 32.86 kg/m2 Alan Ward MD Work Phone: [facility] 08-16-2024 13:05-0500 Body temperature 98.4 [degF] Alan Ward MD Work Phone: [facility] 08-16-2024 13:05-0500 Body weight 103.87 kg Alan Ward MD Work Phone: [facility] 08-16-2024 13:05-0500 Diastolic blood pressure 64 mm[Hg] Alan Ward MD Work Phone: [facility] 08-16-2024 13:05-0500 Heart rate 76 /min Alan Ward MD Work Phone: [facility] 08-16-2024 13:05-0500 SaO2% (BldA) [Mass fraction] 97 % Alan Ward MD Work Phone: [facility] 08-16-2024 13:05-0500 Systolic blood pressure 126 mm[Hg] Alan Ward MD Work Phone: [facility] 08-02-2024 10:12-0500 Body mass index (BMI) [Ratio] 34.42 kg/m2 Charlene Beck APRN.[employer] Work Phone: [facility] 08-02-2024 10:12-0500 Body temperature 99.39 [degF] Charlene Beck APRN.[employer] Work Phone: [facility] 08-02-2024 10:12-0500 Body weight 108.8 kg Charlene Beck APRN.[employer] Work Phone: [facility] 08-02-2024 10:12-0500 Diastolic blood pressure 82 mm[Hg] Charlene Beck APRN.[employer] Work Phone: [facility] 08-02-2024 10:12-0500 Heart rate 74 /min Charlene Beck APRN.[employer] Work Phone: [facility] 08-02-2024 10:12-0500 Respiratory rate 20 /min Charlene Beck APRN.[employer] Work Phone: [facility] 08-02-2024 10:12-0500 SaO2% (BldA) [Mass fraction] 96 % Charlene Beck APRN.[employer] Work Phone: [facility] 08-02-2024 10:12-0500 Systolic blood pressure 120 mm[Hg] Charlene Beck APRN.[employer] Work Phone: [facility] 07-09-2024 15:06-0500 Body height 177.8 cm Alan Ward MD Work Phone: [facility] 07-09-2024 15:06-0500 Body mass index (BMI) [Ratio] 34.58 kg/m2 Alan Ward MD Work Phone: [facility] 07-09-2024 15:06-0500 Body weight 109.32 kg Alan Ward MD Work Phone: [facility] 07-09-2024 15:06-0500 Diastolic blood pressure 68 mm[Hg] Alan Ward MD Work Phone: [facility] 07-09-2024 15:06-0500 Heart rate 67 /min Alan Ward MD Work Phone: [facility] 07-09-2024 15:06-0500 SaO2% (BldA) [Mass fraction] 95 % Alan Ward MD Work Phone: [facility] 07-09-2024 15:06-0500 Systolic blood pressure 118 mm[Hg] Alan Ward MD Work Phone: [facility] 06-29-2024 09:17-0500 Body height 180.[address] Alan Ward MD Work Phone: [facility] 06-29-2024 09:17-0500 Body mass index (BMI) [Ratio] 33.3 kg/m2 Dr. Alan Ward MD Work Phone: [phone] [place] [address] 06-29-2024 09:17-0500 Body temperature 97.4 [degF] Dr. Alan Ward MD Work Phone: [phone] [place] [address] 06-29-2024 09:17-0500 Body weight 108.[address] Alan Ward MD Work Phone: [phone](405)[phone] [place] [address] 06-29-2024 09:17-0500 Diastolic blood pressure 76 mm[Hg] Dr. Alan Ward MD Work Phone: 1(660)[phone] [place] [address] 06-29-2024 09:17-0500 Heart rate 52 /min Dr. Alan Ward MD Work Phone: [phone] [place] [address] 06-29-2024 09:17-0500 Respiratory rate 18 /min Dr. Alan Ward MD Work Phone: [phone])[phone] [place] [address] 06-29-2024 09:17-0500 SaO2% (BldA) [Mass fraction] 95 % Dr. Alan Ward MD Work Phone: [phone] [place] [address] 06-29-2024 09:17-0500 Systolic blood pressure 121 mm[Hg] Dr. Alan Ward MD Work Phone: 6(728)[phone] [place] [address] 06-07-2024 17:56-0500 Body mass index (BMI) [Ratio] 34.72 kg/m2 Alan Ward MD Work Phone: [facility] 06-07-2024 17:56-0500 Body temperature 97.39 [degF] Alan Ward MD Work Phone: [facility] 06-07-2024 17:56-0500 Body weight 109.77 kg Alan Ward MD Work Phone: [facility] 06-07-2024 17:56-0500 Diastolic blood pressure 82 mm[Hg] Alan Ward MD Work Phone: [facility] 06-07-2024 17:56-0500 Heart rate 68 /min Alan Ward MD Work Phone: [facility] 06-07-2024 17:56-0500 SaO2% (BldA) [Mass fraction] 98 % Alan Ward MD Work Phone: [facility] 06-07-2024 17:56-0500 Systolic blood pressure 138 mm[Hg] Alan Ward MD Work Phone: [facility] 03-08-2024 10:01-0400 Body height 177.8 cm Alan Ward MD Work Phone: [facility] 03-08-2024 10:01-0400 Body mass index (BMI) [Ratio] 33.72 kg/m2 Alan Ward MD Work Phone: [facility] 03-08-2024 10:01-0400 Body weight 106.6 kg Alan Ward MD Work Phone: [facility] 03-08-2024 10:01-0400 Diastolic blood pressure 77 mm[Hg] Alan Ward MD Work Phone: [facility] 03-08-2024 10:01-0400 Heart rate 54 /min Alan Ward MD Work Phone: [facility] 03-08-2024 10:01-0400 Systolic blood pressure 126 mm[Hg] Alan Ward MD Work Phone: [facility] 01-14-2024 09:17-0400 Body height 177.8 cm Alan Ward MD Work Phone: [facility] 01-14-2024 09:17-0400 Body mass index (BMI) [Ratio] 33.29 kg/m2 Alan Ward MD Work Phone: [facility] 01-14-2024 09:17-0400 Body weight 105.23 kg Alan Ward MD Work Phone: [facility] [facility] 01-14-2024 09:17-0400 Diastolic blood pressure 74 mm[Hg] Alan Ward MD Work Phone: [facility] 01-14-2024 09:17-0400 Heart rate 59 /min Alan Ward MD Work Phone: [facility] 01-14-2024 09:17-0400 SaO2% (BldA) [Mass fraction] 97 % Alan Ward MD Work Phone: [facility] 01-14-2024 09:17-0400 Systolic blood pressure 126 mm[Hg] Alan Ward MD Work Phone: [facility] 11-30-2023 09:58-0400 Body mass index (BMI) [Ratio] 33.56 kg/m2 Julián Pendrich TAXI DRIVER SUPERVISOR.STEAM LOCOMOTIVE FIRER/FIREMAN Work Phone: [facility] 11-30-2023 09:58-0400 Body temperature 96.91 [degF] Julián Aaliyahleesteban [employer]AXI DRIVER SUPERVISOR.STEAM LOCOMOTIVE FIRER/FIREMAN Work Phone: [facility] 11-30-2023 09:58-0400 Body weight 106.1 kg Julián Russo TAXI DRIVER SUPERVISOR.STEAM LOCOMOTIVE FIRER/FIREMAN Work Phone: [facility] 11-30-2023 09:58-0400 Diastolic blood pressure 76 mm[Hg] Julián Pendleesteban TAXI DRIVER SUPERVISOR.STEAM LOCOMOTIVE FIRER/FIREMAN Work Phone: [facility] 11-30-2023 09:58-0400 Heart rate 60 /min Julián Russo TAXI DRIVER SUPERVISOR.STEAM LOCOMOTIVE FIRER/FIREMAN Work Phone: [facility] 11-30-2023 09:58-0400 Respiratory rate 16 /min Julián Pendrich TAXI DRIVER SUPERVISOR.STEAM LOCOMOTIVE FIRER/FIREMAN Work Phone: [facility] 11-30-2023 09:58-0400 SaO2% (BldA) [Mass fraction] 100 % Julián Russo TAXI DRIVER SUPERVISOR.STEAM LOCOMOTIVE FIRER/FIREMAN Work Phone: [facility] 11-30-2023 09:58-0400 Systolic blood pressure 100 mm[Hg] Julián Russo TAXI DRIVER SUPERVISOR.STEAM LOCOMOTIVE FIRER/FIREMAN Work Phone: [facility] 09-05-2023 08:07-0400 Body height 177.8 cm Alan Ward MD Work Phone: [facility] 09-05-2023 08:07-0400 Body weight 106.14 kg Alan Ward MD Work Phone: [facility] 09-05-2023 08:07-0400 Diastolic blood pressure 80 mm[Hg] Alan Ward MD Work Phone: [facility] 09-05-2023 08:07-0400 Heart rate 56 /min Alan Ward MD Work Phone: [facility] 09-05-2023 08:07-0400 SaO2% (BldA) [Mass fraction] 97 % Alan Ward MD Work Phone: [facility] 09-05-2023 08:07-0400 Systolic blood pressure 120 mm[Hg] Alan Ward MD Work Phone: [facility] 04-19-2023 07:59-0400 Body weight 105.69 kg Alan Ward MD Work Phone: [facility] 04-19-2023 07:59-0400 Diastolic blood pressure 86 mm[Hg] Alan Ward MD Work Phone: [facility] 04-19-2023 07:59-0400 Heart rate 62 /min Alan Ward MD Work Phone: [facility] 04-19-2023 07:59-0400 Respiratory rate 16 /min Alan Ward MD Work Phone: [facility] 04-19-2023 07:59-0400 SaO2% (BldA) [Mass fraction] 98 % Alan Ward MD Work Phone: [facility] 04-19-2023 07:59-0400 Systolic blood pressure 130 mm[Hg] Alan Ward MD Work Phone: [facility] 02-20-2023 08:24-0400 Body temperature 99.5 [degF] Charlene Beck APRN.STEAM LOCOMOTIVE FIRER/FIREMAN Work Phone: [facility] 02-20-2023 08:24-0400 Body weight 103.78 kg Charlene Beck APRN.STEAM LOCOMOTIVE FIRER/FIREMAN Work Phone: [facility] 02-20-2023 08:24-0400 Diastolic blood pressure 91 mm[Hg] Charlene Beck APRN.STEAM LOCOMOTIVE FIRER/FIREMAN Work Phone: [facility] 02-20-2023 08:24-0400 Heart rate 72 /min Charlene Beck APRN.STEAM LOCOMOTIVE FIRER/FIREMAN Work Phone: [facility] 02-20-2023 08:24-0400 Respiratory rate 18 /min Charlene Beck APRN.STEAM LOCOMOTIVE FIRER/FIREMAN Work Phone: [facility] 02-20-2023 08:24-0400 SaO2% (BldA) [Mass fraction] 100 % Charlene Beck APRN.STEAM LOCOMOTIVE FIRER/FIREMAN Work Phone: [facility] 02-20-2023 08:24-0400 Systolic blood pressure 163 mm[Hg] Charlene Beck APRN.STEAM LOCOMOTIVE FIRER/FIREMAN Work Phone: [facility] 11-25-2022 08:38-0400 Body weight 105.69 kg Alan Ward MD Work Phone: [facility] 11-25-2022 08:38-0400 Diastolic blood pressure 72 mm[Hg] Alan Ward MD Work Phone: [facility] 11-25-2022 08:38-0400 Heart rate 57 /min Alan Ward MD Work Phone: [facility] 11-25-2022 08:38-0400 SaO2% (BldA) [Mass fraction] 97 % Alan Ward MD Work Phone: [facility] 11-25-2022 08:38-0400 Systolic blood pressure 132 mm[Hg] Alan Ward MD Work Phone: [facility] 10-21-2022 09:32-0400 Body weight 104.78 kg Alan Ward MD Work Phone: [facility] 10-21-2022 09:32-0400 Diastolic blood pressure 82 mm[Hg] Alan Ward MD Work Phone: [facility] 10-21-2022 09:32-0400 Heart rate 55 /min Alan Ward MD Work Phone: [facility] 10-21-2022 09:32-0400 SaO2% (BldA) [Mass fraction] 96 % Alan Ward MD Work Phone: [facility] 10-21-2022 09:32-0400 Systolic blood pressure 128 mm[Hg] Alan Ward MD Work Phone: [facility] 10-02-2022 09:04-0400 Diastolic blood pressure 86 mm[Hg] Alan Ward MD Work Phone: [facility] 10-02-2022 09:04-0400 Systolic blood pressure 136 mm[Hg] Alan Ward MD Work Phone: [facility] 10-02-2022 08:03-0400 Body height 179 cm Alan Ward MD Work Phone: [facility] 10-02-2022 08:03-0400 Body weight 103.87 kg Alan Ward MD Work Phone: [facility] 10-02-2022 08:03-0400 Heart rate 57 /min Alan Ward MD Work Phone: [facility] 10-02-2022 08:03-0400 Respiratory rate 16 /min Alan Ward MD Work Phone: [facility] 10-02-2022 08:03-0400 SaO2% (BldA) [Mass fraction] 98 % Alan Ward MD Work Phone: [facility] 08-07-2022 06:41-0500 Diastolic blood pressure 73 mm[Hg] Dr. Alan Ward Work Phone: 6(428)878-426217 [place] [address] 08-07-2022 06:41-0500 Heart rate 63 /min Dr. Alan Ward Work Phone: 3(301)655-843517 [place] [address] 08-07-2022 06:41-0500 Respiratory rate 13 /min Dr. Alan Ward Work Phone: 1(349)582-215417 [place] [address] 08-07-2022 06:41-0500 SaO2% (BldA) [Mass fraction] 95 % Dr. Alan Ward Work Phone: 3(754)009-245017 [place] [address] 08-07-2022 06:41-0500 Systolic blood pressure 124 mm[Hg] Dr. Alan Ward Work Phone: 2(762)998-653017 [place] [address] 08-07-2022 02:42-0500 Body height 180.[address] Alan Ward Work Phone: 7(301)951-768317 [place] [address] 08-07-2022 02:42-0500 Body mass index (BMI) [Ratio] 31.3 kg/m2 Dr. Alan Ward Work Phone: 4(932)761-041617 [place] [address] 08-07-2022 02:42-0500 Body temperature 98.2 [degF] Dr. Alan Ward Work Phone: 1(867)351-426717 [place] [address] 08-07-2022 02:42-0500 Body weight 101.[address] Alan Ward Work Phone: 8(247)228-463617 [place] [address] 07-11-2022 15:51-0500 Body mass index (BMI) [Ratio] 32.2 kg/m2 Dr. Alan Ward Work Phone: 9(559)905-084117 [place] [address] 07-11-2022 15:51-0500 Body weight 104.[address] Alan Ward Work Phone: 2(511)763-710017 [place] [address] 07-11-2022 15:51-0500 Diastolic blood pressure 82 mm[Hg] Dr. Alan Ward Work Phone: 4(328)852-205317 [place] [address] 07-11-2022 15:51-0500 Heart rate 55 /min Dr. Alan Ward Work Phone: 5(193)916-456160 [place] [address] 07-11-2022 15:51-0500 Respiratory rate 18 /min Dr. Alan Ward Work Phone: 0(538)408-176317 [place] [address] 07-11-2022 15:51-0500 SaO2% (BldA) [Mass fraction] 97 % Dr. Alan Ward Work Phone: 6(668)522-608717 [place] [address] 07-11-2022 15:51-0500 Systolic blood pressure 137 mm[Hg] Dr. Alan Ward Work Phone: 4(020)599-478717 [place] [address] 05-29-2022 06:39-0500 Body mass index (BMI) [Ratio] 31.9 kg/m2 Dr. Alan Ward Work Phone: 6(942)753-705417 [place] [address] 05-29-2022 06:39-0500 Body temperature 97.4 [degF] Dr. Alan Ward Work Phone: 7(159)925-727617 [place] [address] 05-29-2022 06:39-0500 Body weight 103.[address] Alan Ward Work Phone: 8(427)270-895917 [place] [address] 05-29-2022 06:39-0500 Diastolic blood pressure 74 mm[Hg] Dr. Alan Ward Work Phone: 1(989)427-028017 [place] [address] 05-29-2022 06:39-0500 Heart rate 58 /min Dr. Alan Ward Work Phone: 4(340)621-779317 [place] [address] 05-29-2022 06:39-0500 Respiratory rate 18 /min Dr. Alan Ward Work Phone: 0(680)545-733917 [place] [address] 05-29-2022 06:39-0500 SaO2% (BldA) [Mass fraction] 93 % Dr. Alan Ward Work Phone: 8(946)057-032517 [place] [address] 05-29-2022 06:39-0500 Systolic blood pressure 122 mm[Hg] Dr. Alan Ward Work Phone: 4(763)460-891117 [place] [address] 05-02-2022 15:43-0500 Diastolic blood pressure 74 mm[Hg] [facility] Nurse Work Phone: 5(865)082-021511 [place] [address] 05-02-2022 15:43-0500 Heart rate 60 /min Mi Nurse Work Phone: [facility] 05-02-2022 15:43-0500 Systolic blood pressure 122 mm[Hg] Mi Nurse Work Phone: [facility] 04-11-2022 07:51-0400 Body temperature 97.39 [degF] Randy Goyal MD Work Phone: [facility] 04-11-2022 07:51-0400 Body weight 103.15 kg Randy Goyal MD Work Phone: [facility] 04-11-2022 07:51-0400 Diastolic blood pressure 81 mm[Hg] Randy Goyal MD Work Phone: [facility] 04-11-2022 07:51-0400 Heart rate 60 /min Randy Goyal MD Work Phone: [facility] 04-11-2022 07:51-0400 SaO2% (BldA) [Mass fraction] 98 % Randy Goyal MD Work Phone: [facility] 04-11-2022 07:51-0400 Systolic blood pressure 182 mm[Hg] Randy Goyal MD Work Phone: [facility] 04-04-2022 13:35-0400 Body height 180.3 cm Randy Goyal MD Work Phone: [facility] 04-04-2022 13:35-0400 Body temperature 97.9 [degF] Randy Goyal MD Work Phone: [facility] 04-04-2022 13:35-0400 Body weight 100.7 kg Randy Goyal MD Work Phone: [facility] 04-04-2022 13:35-0400 Diastolic blood pressure 78 mm[Hg] Randy Goyal MD Work Phone: [facility] 04-04-2022 13:35-0400 Heart rate 72 /min Randy Goyal MD Work Phone: [facility] 04-04-2022 13:35-0400 Respiratory rate 14 /min Randy Goyal MD Work Phone: [facility] 04-04-2022 13:35-0400 SaO2% (BldA) [Mass fraction] 99 % Randy Goyal MD Work Phone: [facility] 04-04-2022 13:35-0400 Systolic blood pressure 162 mm[Hg] Randy Goyal MD Work Phone: [facility] 03-29-2022 08:25-0400 Body height 180.3 cm Alan Ward MD Work Phone: [facility] 03-29-2022 08:25-0400 Body weight 101.88 kg Alan Ward MD Work Phone: [facility] 03-29-2022 08:25-0400 Diastolic blood pressure 96 mm[Hg] Alan Ward MD Work Phone: [facility] 03-29-2022 08:25-0400 Heart rate 60 /min Alan Ward MD Work Phone: [facility] 03-29-2022 08:25-0400 SaO2% (BldA) [Mass fraction] 97 % Alan Ward MD Work Phone: [facility] 03-29-2022 08:25-0400 Systolic blood pressure 144 mm[Hg] Alan Ward MD Work Phone: [facility] 01-17-2022 09:45-0400 Body height 180.3 cm Randy Goyal MD Work Phone: [facility] 01-17-2022 09:45-0400 Body temperature 98.01 [degF] Randy Goyal MD Work Phone: [facility] 01-17-2022 09:45-0400 Body weight 99.25 kg Randy Goyal MD Work Phone: [facility] 01-17-2022 09:45-0400 Diastolic blood pressure 84 mm[Hg] Randy Goyal MD Work Phone: [facility] 01-17-2022 09:45-0400 Heart rate 63 /min Randy Goyal MD Work Phone: [facility] 01-17-2022 09:45-0400 SaO2% (BldA) [Mass fraction] 99 % Randy Goyal MD Work Phone: [facility] 01-17-2022 09:45-0400 Systolic blood pressure 147 mm[Hg] Randy Goyal MD Work Phone: [facility] 01-14-2022 17:24-0400 Body weight 99.79 kg Alan Ward MD Work Phone: [facility] 01-14-2022 17:24-0400 Diastolic blood pressure 82 mm[Hg] Alan Ward MD Work Phone: [facility] 01-14-2022 17:24-0400 Heart rate 72 /min Alan Ward MD Work Phone: [facility] 01-14-2022 17:24-0400 Systolic blood pressure 138 mm[Hg] Alan Ward MD Work Phone: [facility] 12-25-2021 16:22-0400 Body height 180.3 cm Jose Galvan PA-C Work Phone: [facility] 12-25-2021 16:22-0400 Body temperature 97.7 [degF] Jose Galvan PA-C Work Phone: [facility] 12-25-2021 16:22-0400 Body weight 98.43 kg Jose Galvan PA-C Work Phone: [facility] 12-25-2021 16:22-0400 Diastolic blood pressure 84 mm[Hg] Jose Galvan PA-C Work Phone: [facility] 12-25-2021 16:22-0400 Heart rate 68 /min Jose Galvan PA-C Work Phone: [facility] 12-25-2021 16:22-0400 Respiratory rate 14 /min Jose Galvan PA-C Work Phone: [facility] 12-25-2021 16:22-0400 SaO2% (BldA) [Mass fraction] 99 % Jose TENA-Napoleon Work Phone: [facility] 12-25-2021 16:22-0400 Systolic blood pressure 138 mm[Hg] Jose TENA-C Work Phone: [facility] 12-17-2021 13:22-0400 Diastolic blood pressure 74 mm[Hg] Dr. Alan Ward Work Phone: [facility] Work Phone: 12-17-2021 13:22-0400 Heart rate 71 /min Dr. Alan Ward Work Phone: [facility] Work Phone: 12-17-2021 13:22-0400 Respiratory rate 18 /min Dr. Alan Ward Work Phone: [facility] Work Phone: 12-17-2021 13:22-0400 SaO2% (BldA) [Mass fraction] 97 % Dr. Alan Ward Work Phone: [facility] Work Phone: 12-17-2021 13:22-0400 Systolic blood pressure 124 mm[Hg] Dr. Alan Ward Work Phone: [facility] Work Phone: 12-17-2021 08:39-0400 Body height 180.[address] Alan Ward Work Phone: [facility] Work Phone: 12-17-2021 08:39-0400 Body mass index (BMI) [Ratio] 30.4 kg/m2 Dr. Alan Ward Work Phone: [facility] Work Phone: 12-17-2021 08:39-0400 Body temperature 98.9 [degF] Dr. Alan Ward Work Phone: [facility] Work Phone: 12-17-2021 08:39-0400 Body weight 98.[address] Alan Ward Work Phone: [facility] Work Phone: 12-03-2021 18:42-0400 Body weight 101.15 kg Alan Ward MD Work Phone: [facility] 12-03-2021 18:42-0400 Diastolic blood pressure 82 mm[Hg] Alan Ward MD Work Phone: [facility] 12-03-2021 18:42-0400 Heart rate 80 /min Alan Ward MD Work Phone: [facility] 12-03-2021 18:42-0400 Systolic blood pressure 142 mm[Hg] Alan Ward MD Work Phone: [facility] 11-02-2021 14:31-0400 Body weight 100.7 kg Alan Ward MD Work Phone: [facility] 11-02-2021 14:31-0400 Diastolic blood pressure 82 mm[Hg] Alan Ward MD Work Phone: [facility] 11-02-2021 14:31-0400 Heart rate 72 /min Alan Ward MD Work Phone: [facility] 11-02-2021 14:31-0400 Systolic blood pressure 132 mm[Hg] Alan Ward MD Work Phone: [facility] 10-18-2021 14:26-0400 Body height 180.3 cm Randy Goyal MD Work Phone: [facility] 10-18-2021 14:26-0400 Body temperature 98.91 [degF] Randy Goyal MD Work Phone: [facility] 10-18-2021 14:26-0400 Body weight 101.61 kg Randy Goyal MD Work Phone: [facility] 10-18-2021 14:26-0400 Diastolic blood pressure 89 mm[Hg] Randy Goyal MD Work Phone: [facility] 10-18-2021 14:26-0400 Heart rate 74 /min Randy Goyal MD Work Phone: [facility] 10-18-2021 14:26-0400 SaO2% (BldA) [Mass fraction] 98 % Randy Goyal MD Work Phone: [facility] 10-18-2021 14:26-0400 Systolic blood pressure 162 mm[Hg] Randy Goyal MD Work Phone: [facility] 09-26-2021 08:28-0400 Body weight 102.51 kg Alan Ward MD Work Phone: [facility] 09-26-2021 08:28-0400 Diastolic blood pressure 78 mm[Hg] Alan Ward MD Work Phone: [facility] 09-26-2021 08:28-0400 Heart rate 66 /min Alan Ward MD Work Phone: [facility] 09-26-2021 08:28-0400 Respiratory rate 14 /min Alan Ward MD Work Phone: [facility] 09-26-2021 08:28-0400 Systolic blood pressure 140 mm[Hg] Alan Ward MD Work Phone: [facility] 09-05-2021 08:43-0400 Body height 180.[address] Alan Ward Work Phone: [facility] Work Phone: 08-20-2021 11:01-0500 Body mass index (BMI) [Ratio] 31.4 kg/m2 Dr. Alan Ward Work Phone: [facility] Work Phone: 08-20-2021 11:01-0500 Body weight 102.[address] Alan Ward Work Phone: [facility] Work Phone: 08-20-2021 11:01-0500 Diastolic blood pressure 90 mm[Hg] Dr. Alan Ward Work Phone: [facility] Work Phone: 08-20-2021 11:01-0500 Heart rate 86 /min Dr. Alan Ward Work Phone: [facility] Work Phone: 08-20-2021 11:01-0500 Respiratory rate 18 /min Dr. Alan Ward Work Phone: [facility] Work Phone: 08-20-2021 11:01-0500 SaO2% (BldA) [Mass fraction] 98 % Dr. Alan Ward Work Phone: [facility] Work Phone: 08-20-2021 11:01-0500 Systolic blood pressure 139 mm[Hg] Dr. Alan Ward Work Phone: [facility] Work Phone: 08-20-2021 10:01-0500 Body mass index (BMI) [Ratio] 31.4 kg/m2 Dr. Alan Ward Work Phone: [facility] Work Phone: 08-20-2021 10:01-0500 Body weight 102.[address] Alan Ward Work Phone: [facility] Work Phone: 08-20-2021 10:01-0500 Diastolic blood pressure 90 mm[Hg] Dr. Alan Ward Work Phone: [facility] Work Phone: 08-20-2021 10:01-0500 Heart rate 86 /min Dr. Alan Ward Work Phone: [facility] Work Phone: 08-20-2021 10:01-0500 Respiratory rate 18 /min Dr. Alan Ward Work Phone: [facility] Work Phone: 08-20-2021 10:01-0500 SaO2% (BldA) [Mass fraction] 98 % Dr. Alan Ward Work Phone: [facility] Work Phone: 08-20-2021 10:01-0500 Systolic blood pressure 139 mm[Hg] Dr. Alan Ward Work Phone: [facility] Work Phone: 06-27-2021 14:44-0500 Body weight 103.[address] Alan Ward Work Phone: [facility] Work Phone: 06-27-2021 14:44-0500 Diastolic blood pressure 82 mm[Hg] Dr. Alan Ward Work Phone: [facility] Work Phone: 06-27-2021 14:44-0500 Heart rate 68 /min Dr. Alan Ward Work Phone: [facility] Work Phone: 06-27-2021 14:44-0500 Respiratory rate 16 /min Dr. Alan Ward Work Phone: [facility] Work Phone: 06-27-2021 14:44-0500 Systolic blood pressure 128 mm[Hg] Dr. Alan Ward Work Phone: [facility] Work Phone: 05-29-2021 04:51-0500 Body temperature 97.3 [degF] Dr. Alan Ward Work Phone: [facility] Work Phone: 05-29-2021 04:51-0500 Body weight 107.[address] Alan Ward Work Phone: [facility] Work Phone: 05-29-2021 04:51-0500 Diastolic blood pressure 86 mm[Hg] Dr. Alan Ward Work Phone: [facility] Work Phone: 05-29-2021 04:51-0500 Heart rate 58 /min Dr. Alan Ward Work Phone: [facility] Work Phone: 05-29-2021 04:51-0500 Respiratory rate 18 /min Dr. Alan Ward Work Phone: [facility] Work Phone: 05-29-2021 04:51-0500 SaO2% (BldA) [Mass fraction] 97 % Dr. Alan Ward Work Phone: [facility] Work Phone: 05-29-2021 04:51-0500 Systolic blood pressure 138 mm[Hg] Dr. Alan Ward Work Phone: [facility] Work Phone: 09-18-2020 08:35-0400 Body mass index (BMI) [Ratio] 30.1 kg/m2 Dr. Alan Ward Work Phone: [facility] Work Phone: 05-16-2020 05:37-0500 Body mass index (BMI) [Ratio] 32.6 kg/m2 Dr. Alan Ward Work Phone: [facility] Work Phone: Encounters Encounter Date Encounter Type Care Provider Facility Start: 05-12-2025 ambulatory Gerardo Guerrier NP Facility :[facility] Start: 05-02-2025 ambulatory [facility] Facility :[facility] Start: 04-04-2025 End: 04-04-2025 ambulatory [facility] Facility:[facility] Start: 03-22-2025 End: 03-22-2025 ambulatory [facility] Facility:[facility] Start: 03-22-2025 Encounter for genera l adult medical examination without abnormal findings ALAN Portillo [facility] Start: 03-18-2025 End: 03-18-2025 ambulatory [facility] Facility:[facility] Start: 02-10-2025 End: 02-11-2025 ambulatory Joseph Loera APRN.[employer] LOC[employer]IVE FIRER/FIREMAN Work Phone: [facility] Comment on above: Antibiotic Start: 02-08-2025 End: 02-08-2025 Patient encounter procedure Joseph Loera APRN.[employer] LOCOMOTIVE FIRER/FIREMAN Work Phone: [facility] Comment on above: Eustachian tube dysf unction, bilateral (Primary Dx); Viral sinusitis Start: 02-08-2025 End: 02-08-2025 ambulatory ALAN WARD Facility:[facility] Start: 01-18-2025 End: 01-18-2025 Refill Alan Ward MD Work Phone: [facility] Comment on above: Refill Request Start: 01-14-2025 ambulatory ALAN WARD Facility :[facility] Start: 01-14-2025 End: 01-14-2025 Subsequent hospital visit by physician [employer] [facility] (I-Stat/1.5t) Work Phone: Radiology Comment on above: Posterior tibial ten don dysfunction [M76.829] Start: 01-11-2025 End: 01-11-2025 Patient encounter procedure Gerardo PHILLIPS -[facility] Work Phone: Start: 01-11-2025 End: 01-11-[address] Alan Ward MD Work Phone: -[facility] Start: 01-10-2025 End: 01-11-2025 Telephone encounter Sandeep Iqbal Work Phone: Podiatry Comment on above: MRI authorization Start: 01-03-2025 End: 01-03-2025 ambulatory John Ornelas PT [facility] Comment on above: Tendinitis of left s hoingrid (Primary Dx); Plantar fasciitis of left foot Start: 12-27-2024 End: 12-27-2024 ambulatory Pushpa Williamson SHANNAN Work Phone: [facility] Comment on above: Tendinitis of left s hoingrid (Primary Dx); Foot pain, left; Plantar fasciitis; Plantar fasciitis of left foot Start: 12-23-2024 End: 12-23-2024 Patient encounter procedure Sandeep Iqbal Work Phone: Podiatry Comment on above: Posterior tibial ten don dysfunction (Primary Dx); Plantar fasciitis; Soft tissue mass Start: 12-23-2024 End: 12-23-2024 ambulatory ALAN WARD Facility:[facility] Start: 12-23-2024 End: 12-23-2024 Subsequent hospital visit by physician Jelena [facility] [place] [facility] Work Phone: Radiology Comment on above: Pain in left foot [M 79.672] Start: 12-21-2024 End: 12-21-2024 ambulatory Pushpa Williamson MANAGER ACQUISITION Work Phone: [facility] Comment on above: Tendinitis of left s hoingrid (Primary Dx); Plantar fasciitis of left foot Start: 12-08-2024 End: 12-29-2024 Telephone encounter Alan Ward MD Work Phone: [facility] Comment on above: Patient Update Start: 12-07-2024 End: 12-07-2024 ambulatory John Ornelas PT [facility] Comment on above: Tendinitis of left s hoingrid (Primary Dx); Plantar fasciitis of left foot Start: 12-02-2024 End: 12-02-2024 ambulatory Pushpa Templeba MANAGER ACQUISITION Work Phone: [facility] Comment on above: Tendinitis of left s hoingrid (Primary Dx); Plantar fasciitis of left foot Start: 11-18-2024 End: 11-18-2024 ambulatory Pushpa Templeba MANAGER ACQUISITION Work Phone: [facility] Comment on above: Tendinitis of left s houlder (Primary Dx); Plantar fasciitis of left foot Start: 11-11-2024 End: 11-11-2024 ambulatory ALAN WARD Facility:[facility] Start: 10-25-2024 End: 10-25-2024 ambulatory John Ornelas PT [facility] Comment on above: Tendinitis of should er, unspecified laterality (Primary Dx); Plantar fasciitis of left foot Start: 10-18-2024 End: 10-18-2024 Patient encounter procedure Alan Ward MD Work Phone: [facility] Comment on above: Anxiety (Primary Dx) ; Foot pain, left; Plantar fasciitis Start: 10-18-2024 End: 10-18-2024 ambulatory [facility] Facility:[facility] Start: 10-15-2024 End: 10-29-2024 Telephone encounter Alan Ward MD Work Phone: [facility] Comment on above: Results Start: 10-14-2024 End: 10-14-[address] Alan Ward MD Work Phone: [facility] Work Phone: Start: 10-14-2024 End: 10-14-[address] Alan Ward MD -Laboratory Work Phone: Start: 10-14-2024 End: 10-14-2024 ambulatory [facility] Facility:[facility] Start: 09-17-2024 End: 09-17-2024 ambulatory [facility] Facility:[facility] Start: 09-17-2024 End: 09-17-2024 Patient encounter procedure Alan Ward MD Work Phone: [facility] Comment on above: Acute non-recurrent sinusitis, unspecified location (Primary Dx); Hyperglycemia; Mixed hyperlipidemia; Essential hypertension Start: 09-13-2024 End: 09-13-2024 ambulatory [facility] Facility:[facility] Start: 09-13-2024 End: 09-13-2024 Patient encounter procedure Armand Mcfadden MD Work Phone: Orthopaedics Comment on above: Chronic pain of both shoulders (Primary Dx); Shoulder impingement Start: 09-09-2024 End: 09-09-2024 ambulatory [facility] Facility:[facility] Start: 09-09-2024 End: 09-09-2024 Office outpatient visit 25 minutes Katrin Meléndez PA-C Work Phone: [facility] Comment on above: Sore throat (Primary Dx) Start: 09-06-2024 End: 09-06-2024 ambulatory [facility] Facility:[facility] Start: 09-06-2024 End: 09-06-2024 Patient encounter procedure Alan Ward MD Work Phone: [facility] [place] Comment on above: Essential hypertensi on (Primary Dx); Paroxysmal atrial fibrillation (HCC); Mixed hyperlipidemia; Unspecified sleep apnea; Hyperglycemia; Benign paroxysmal positional vertigo, unspecified laterality; Generalized Anxiety Disorder; Obesity, Class I, BMI 30-34.9; Thrombocytosis; Screening for depression Start: 09-03-2024 End: 11-03-2024 Follow-up encounter Alan Ward MD Work Phone: [facility] [place] Start: 09-02-2024 End: 09-02-2024 ambulatory [facility] Facility:[facility] Start: 08-29-2024 End: 08-30-2024 Refill Alan Ward MD Work Phone: [facility] Comment on above: Refill Request Start: 08-26-2024 End: 10-26-2024 Follow-up encounter Lizzette Holt APRN.CNP Work Phone: [facility] Start: 08-24-2024 End: 08-24-2024 [facility] Facility:[facility] Start: 08-24-2024 End: 08-24-2024 Patient encounter procedure Sj TENA Work Phone: [facility] Comment on above: Sore throat (Primary Dx); Soreness of tongue Start: 08-16-2024 End: 08-16-2024 [facility] Facility:[facility] Start: 08-16-2024 End: 08-16-2024 Patient encounter procedure Alan Ward MD Work Phone: [facility] Comment on above: Essential hypertensi on (Primary Dx); Mixed hyperlipidemia; Paroxysmal atrial fibrillation (HCC); Unspecified sleep apnea; Generalized Anxiety Disorder; Influenza A Start: 08-02-2024 End: 08-02-2024 Telephone encounter Charlene Beck APRN.CNP Work Phone: [facility] Comment on above: Patient Question Start: 08-02-2024 End: 08-02-2024 [facility] Facility:[facility] Start: 08-02-2024 End: 08-02-2024 Patient encounter procedure Charlene Beck APRN.CNP Work Phone: [facility] Comment on above: URI, acute (Primary Dx); Flu Start: 07-09-2024 End: 07-09-2024 Subsequent hospital visit by physician Jelena [facility] [place] Work Phone: Radiology Comment on above: Sprain of ligament o f left ankle, initial encounter [S93.402A] Start: 07-09-2024 End: 07-09-2024 ambulatory ALAN WARD Facility:[facility] Start: 07-09-2024 End: 07-09-2024 Patient encounter procedure Alan Ward MD Work Phone: [facility] [place] Comment on above: Chronic pain of both shoulders (Primary Dx); Essential hypertension; Mixed hyperlipidemia; Paroxysmal atrial fibrillation (HCC); Sprain of ligament of left ankle, initial encounter Start: 06-29-2024 End: 06-29-2024 Patient encounter procedure LUBE WORKER Hoda Jerry [facility] Work Phone: Start: 06-29-2024 End: 06-29-2024 ambulatory Hoda Jerry Facility[facility] Start: 06-11-2024 End: 06-11-2024 Refill Alan Ward MD Work Phone: [facility] [place] Comment on above: Refill Request Start: 06-07-2024 End: 06-07-2024 Patient encounter procedure Alan Ward MD Work Phone: [facility] [place] Comment on above: Sinusitis, unspecifi ed chronicity, unspecified location (Primary Dx); Acute shoulder pain, unspecified laterality Start: 06-07-2024 End: 06-07-2024 ambulatory ALAN WARD Facility:[facility] Start: 06-01-2024 ambulatory Carleen Lomeli LUBE WORKER Fac ility:[facility] Start: 05-24-2024 End: 05-24-2024 ambulatory Gerardo Guerrier NP Facility:[facility] Start: 05-03-2024 End: 05-03-2024 Telephone encounter Alan Ward MD Work Phone: [facility] [place] Comment on above: Medication Problem Start: 04-30-2024 End: 04-30-2024 ambulatory John Ornelas [facility] Comment on above: Tendinitis of left s houlder (Primary Dx); Acute right-sided low back pain without sciatica Start: 04-23-2024 End: 04-23-2024 ambulatory John Ornelas [facility] Comment on above: Tendinitis of left s houlder (Primary Dx); Acute right-sided low back pain without sciatica Start: 04-14-2024 End: 04-14-2024 ambulatory John Ornelas [facility] Comment on above: Tendinitis of left s houlder (Primary Dx); Acute right-sided low back pain without sciatica Start: 04-09-2024 End: 04-09-2024 ambulatory Pushpa Williamson [facility] Work Phone: [facility] Comment on above: Tendinitis of left s houlder (Primary Dx); Acute right-sided low back pain without sciatica Start: 03-31-2024 End: 03-31-2024 ambulatory John Ornelas [facility] Comment on above: Tendinitis of should er, unspecified laterality (Primary Dx); Acute right-sided low back pain without sciatica Start: 03-21-2024 End: 03-22-2024 Refill Alan Ward MD Work Phone: [facility] Comment on above: Refill Request Start: 03-08-2024 End: 03-08-2024 Subsequent hospital visit by physician [facility] Work Phone: Radiology Comment on above: Tendinitis of should er, unspecified laterality [M77.8] Start: 03-08-2024 End: 03-08-2024 Patient encounter procedure Alan Ward MD Work Phone: [facility] Comment on above: Essential hypertensi on (Primary Dx); Mixed hyperlipidemia; Paroxysmal atrial fibrillation (HCC); Unspecified sleep apnea; Hyperglycemia; Benign non-nodular prostatic hyperplasia without lower urinary tract symptoms; Obesity, Class I, BMI 30-34.9; Generalized Anxiety Disorder; Tendinitis of shoulder, unspecified laterality Start: 03-02-2024 End: 03-02-2024 ambulatory Charla Coleman RN NURSE [employer]MISSIONS REPRESENTATIVE Comment on above: Information Lab work Start: 02-12-2024 End: 02-13-2024 ambulatory Alan Ward MD Work Phone: [facility] [place] Comment on above: Monitor results Start: 01-14-2024 End: 01-14-2024 Patient encounter procedure Alan Ward MD Work Phone: [facility] [place] Comment on above: Essential hypertensi on (Primary Dx); Mixed hyperlipidemia; Paroxysmal atrial fibrillation (HCC); Unspecified sleep apnea; Hyperglycemia; Generalized Anxiety Disorder; Obesity, Class I, BMI 30-34.9; Shakiness Start: 12-23-2023 Get Medical Advice Alan Ward MD Work Phone: [facility] [place] Comment on above: Call in a Refill Start: 11-30-2023 End: 11-30-2023 Office outpatient visit 15 minutes Julián Russo APRN.CNP Work Phone: [facility] Comment on above: Viral illness (Prima ry Dx) Start: 09-05-2023 End: 09-05-2023 Patient encounter procedure Alan Ward MD Work Phone: [facility] [place] Comment on above: Well adult exam (Vashti teresita Dx); Generalized anxiety disorder; Essential hypertension; Mixed hyperlipidemia; Paroxysmal atrial fibrillation (HCC); Unspecified sleep apnea; Hyperglycemia; Benign paroxysmal positional vertigo, unspecified laterality; Obesity, Class I, BMI 30-34.9; Allergy, subsequent encounter Start: 09-05-2023 End: 09-05-2023 Patient encounter status Alan Ward MD Work Phone: [facility] Work Phone: Start: 08-28-2023 ambulatory Alan Ward MD Work Phone: [facility] [place] Comment on above: Physical next FridaySeptember 04 Start: 04-27-2023 Refill Alan Ward MD Work Phone: [facility] [place] Comment on above: Refill Request Start: 04-20-2023 Refill Alan Ward MD Work Phone: [facility] [place] Comment on above: Refill Request Start: 04-19-2023 End: 04-19-2023 Patient encounter procedure Alan Ward MD Work Phone: [facility] [place] Comment on above: Left inguinal pain ( Primary Dx); Essential hypertension; Paroxysmal atrial fibrillation (HCC); Anticoagulant long-term use; Hydroureter Start: 03-09-2023 Refill Alan Ward MD Work Phone: [facility] [place] Comment on above: Refill Request Start: 02-20-2023 Telephone encounter Alan Ward MD Work Phone: [facility] [place] Comment on above: Patient Update Start: 02-20-2023 End: 02-20-2023 Patient encounter procedure Charlene Beck APRN.STEAM LOCOMOTIVE FIRER/FIREMAN Work Phone: [facility] Comment on above: COVID (Primary Dx) Start: 02-02-2023 Refill Alan Ward MD Work Phone: [facility] [place] Comment on above: Refill Request Start: 12-20-2022 End: 12-20-2022 ambulatory Stacy Lenz [facility] Comment on above: Benign paroxysmal po sitional vertigo, unspecified laterality (Primary Dx) Start: 11-25-2022 End: 11-25-2022 Patient encounter procedure Alan Ward MD Work Phone: [facility] [place] Comment on above: Benign paroxysmal po sitional vertigo, unspecified laterality (Primary Dx) Start: 10-27-2022 Refill Alan Ward MD Work Phone: [facility] [place] Comment on above: Refill Request Start: 10-21-2022 End: 10-21-2022 Patient encounter procedure Alan Ward MD Work Phone: [facility] [place] Comment on above: Essential hypertensi on (Primary Dx); BPPV (benign paroxysmal positional vertigo), unspecified laterality; Anxiety Start: 10-17-2022 ambulatory Alan Ward MD Work Phone: [facility] [place] Comment on above: Last visit Start: 10-06-2022 Refill Alan Ward MD Work Phone: [facility] Comment on above: Refill Request Start: 10-02-2022 End: 10-02-2022 Patient encounter procedure Alan Ward MD Work Phone: [facility] Comment on above: Well adult exam (Vashti teresita Dx); Essential hypertension; Pure hypercholesterolemia, unspecified; Mixed hyperlipidemia; Unspecified sleep apnea; Hyperglycemia; Generalized anxiety disorder; Benign non-nodular prostatic hyperplasia without lower urinary tract symptoms; Anticoagulant long-term use; Seasonal allergic rhinitis, unspecified trigger; Anxiety Start: 10-02-2022 End: 10-02-2022 Patient encounter status Alan Ward MD Work Phone: [facility] Start: 09-20-2022 Telephone encounter Alan Ward MD Work Phone: [facility] Comment on above: Erroneous encounter- disregard Start: 09-04-2022 End: 09-04-[address] Alan Ward Work Phone: [facility] Work Phone: Start: 09-04-2022 End: 09-04-[address] Alan Ward Work Phone: [facility] Start: 08-07-2022 End: 08-07-2022 Emergency department patient visit Dr. Alan Ward Work Phone: [facility]-Emergency Department Start: 07-30-2022 Refill Alan Ward MD Work Phone: [facility] Comment on above: Refill Request Start: 07-11-2022 End: 07-11-[address] Alan Ward Work Phone: [facility] Start: 05-29-2022 End: 05-29-[address] [facility] Start: 05-02-2022 End: 05-02-2022 Nursing evaluation of patient and report Mi Nurse Work Phone: [facility] [place] Comment on above: Essential hypertensi on (Primary Dx) Start: 05-02-2022 Telephone encounter Alan Ward MD Work Phone: [facility] Comment on above: Blood Pressure Check (/) Start: 05-01-2022 Refill Randy cintron MD Work Phone: Ambulatory Surgery Comment on above: Refill Request Start: 04-29-2022 Telephone encounter Randy Goyal MD Work Phone: Podiatry Comment on above: Patient Question Start: 04-28-2022 Refill Alan Ward MD Work Phone: [facility] Comment on above: Refill Request Start: 04-11-2022 End: 04-11-2022 Patient encounter procedure Randy Goyal MD Work Phone: General Surgery Comment on above: Rectal bleeding (Vashti teresita Dx) Start: 04-08-2022 Telephone encounter Randy Goyal MD Work Phone: General Surgery Comment on above: prior authorization for medication (Omeprazole PA) Start: 04-04-2022 End: 04-04-2022 Patient encounter procedure aRndy Goyal MD Work Phone: General Surgery Comment on above: Rectal bleeding (Vashti teresita Dx) Start: 03-29-2022 End: 03-29-2022 Patient encounter procedure Alan Ward MD Work Phone: [facility] [place] Comment on above: Essential hypertensi on (Primary Dx); Mixed hyperlipidemia; Paroxysmal atrial fibrillation (HCC); Pure hypercholesterolemia, unspecified; Unspecified sleep apnea; Hyperglycemia; Generalized anxiety disorder; Anticoagulant long-term use Start: 02-03-2022 Refill Alan Ward MD Work Phone: [facility] Comment on above: Refill Request Start: 01-17-2022 End: 01-17-2022 Patient encounter procedure Randy Goyal MD Work Phone: General Surgery Comment on above: Abdominal discomfort ; Unilateral inguinal hernia without obstruction or gangrene, recurrence not specified Start: 01-14-2022 End: 01-14-2022 Patient encounter procedure Alan Ward MD Work Phone: [facility] [place] Comment on above: Abdominal discomfort (Primary Dx); Elevated liver enzymes; Unilateral inguinal hernia without obstruction or gangrene, recurrence not specified; Paroxysmal atrial fibrillation (HCC) Start: 01-11-2022 Telephone encounter Alan Ward MD Work Phone: [facility] [place] Comment on above: Erroneous encounter- disregard Start: 01-07-2022 Telephone encounter Alan Ward MD Work Phone: [facility] [place] Comment on above: Results Start: 01-04-2022 Telephone encounter Alan Ward MD Work Phone: [facility] [place] Comment on above: Orders Start: 12-25-2021 End: 12-25-2021 Patient encounter procedure Jose Galvan PA-C Work Phone: Urology Comment on above: Kidney stone (Primar y Dx); Enlarged ureter; Abdominal discomfort Start: 12-21-2021 Telephone encounter Alan Ward MD Work Phone: [facility] [place] Comment on above: Results Start: 12-17-2021 End: 12-17-2021 Emergency department patient [facility] Dr. Alan Ward [facility] Start: 12-17-2021 End: 12-17-2021 Subsequent hospital visit by physician [facility] ([facility]) Work Phone: Cat Scan Comment on above: Canceled (Pt cx: Stefani nge in Condition, Sick) Start: 12-03-2021 End: 12-03-2021 Patient encounter procedure Alan Ward MD Work Phone: [facility] [place] Comment on above: Abdominal discomfort in right lower quadrant (Primary Dx); Abdominal discomfort in left lower quadrant; Essential hypertension; Anxiety; Right lower quadrant abdominal pain Start: 11-11-2021 Refill Alan Ward MD Work Phone: [facility] [place] Comment on above: Refill Request Start: 11-02-2021 End: 11-02-2021 Subsequent hospital visit by physician Xr [facility] Work Phone: Radiology Comment on above: Lower abdominal pain [R10.30] Start: 11-02-2021 End: 11-02-2021 Patient encounter procedure Alan Ward MD Work Phone: [facility] Comment on above: Lower abdominal pain (Primary Dx) Start: 10-18-2021 End: 10-18-2021 Patient encounter procedure Randy Goyal MD Work Phone: General Surgery Comment on above: Rectal bleeding (Vashti teresita Dx) Start: 10-17-2021 Telephone encounter Randy Goyal MD Work Phone: General Surgery Comment on above: Patient Update Start: 09-26-2021 End: 09-26-2021 Patient encounter procedure Alan Ward MD Work Phone: [facility] Comment on above: Essential hypertensi on (Primary Dx); Mixed hyperlipidemia; Paroxysmal atrial fibrillation (HCC); Unspecified sleep apnea; Hyperglycemia; Generalized anxiety disorder; Anticoagulant long-term use; Rectal bleeding; External hemorrhoid Start: 09-17-2021 ambulatory Alan Ward MD Work Phone: [facility] Comment on above: Blood work Start: 09-11-2021 End: 09-11-[address] lAan Ward Work Phone: [facility]-Industrial Gas Fitter/Special Procedures Start: 09-05-2021 End: 09-05-[address] Alan Ward Work Phone: [facility] Start: 09-03-2021 Non-patient / Non-visit Dr. Lyssa Ward Work Phone: [facility] Start: 09-03-2021 End: 09-03-[address] Alan Ward Work Phone: [facility]-Cardiovascula [facility] Services Start: 08-20-2021 End: 08-20-[address] Alan Ward Work Phone: [facility] Start: 07-06-2021 Non-patient / Non-visit Dr. Lyssa Ward Work Phone: [facility] Start: 07-06-2021 End: 07-06-[address] Alan Ward Work Phone: [facility] Start: 06-27-2021 End: 06-27-[address] Alan Ward Work Phone: [facility] Start: 05-29-2021 End: 05-29-[address] Alan Ward Work Phone: [facility] Start: 10-16-2009 End: 02-10-2012 Patient encounter status Julián Russo TAXI DRIVER SUPERVISOR.STEAM LOCOMOTIVE FIRER/FIREMAN Work Phone: [facility] Procedures Date Procedure Procedure Detail Performing Clinician Start: 01-14-2025 Mri any jt upper ext remity w/o & w/contr matrl Sandeep Iqbal Work Phone: Start: 09-09-2024 STREP A MOLECULAR (POC) Katrin Meléndez PA-C Work Phone: Start: 09-06-2024 Adult depression scr eening assessment Alan Ward MD Work Phone: Start: 09-02-2024 Lipid 1996 panel - S octavio or Plasma Alan Ward MD Work Phone: Start: 08-24-2024 STREP A MOLECULAR (POC) Stacy Ramos APRN.STEAM LOCOMOTIVE FIRER/FIREMAN Work Phone: Start: 08-02-2024 INFLUENZA A&B MOLECU LAR (POC) Charlene Beck APRN.STEAM LOCOMOTIVE FIRER/FIREMAN Work Phone: Start: 09-03-2023 Lipid 1995 panel - S octavio or Plasma Alan Ward MD Work Phone: Start: 03-28-2023 Lipid 1996 panel - S octavio or Plasma Alan Ward MD Work Phone: Start: 09-04-2022 MRI of brain with contrast Dr. Alan Ward Work Phone: Start: 08-07-2022 CT of head without contrast Dr. Alan Ward Work Phone: Start: 04-02-2022 Colonoscopy Randy hanley MD Work Phone: Start: 03-26-2022 Lipid 1996 panel - S octavio or Plasma Alan Ward MD Work Phone: Start: 12-25-2021 Urnls dip stick/tabl et rgnt auto w/o microscopy Jose Galvan PA-C Work Phone: Start: 12-17-2021 Computed tomography of abdomen and pelvis with contrast Dr. Alan Ward Work Phone: Start: 11-02-2021 Radiologic exam abdo men 1 view Alan Ward MD Work Phone: Start: 11-02-2021 Urnls dip stick/tabl et rgnt auto w/o microscopy Alan Ward MD Work Phone: Start: 09-26-2021 HEMOCCULT SINGLE B/O Wi sosa Ward MD Work Phone: Start: 09-26-2021 Adult depression scr eening assessment Alan Ward MD Work Phone: Start: 09-03-2021 Plain chest X-ray Dr. Jarrett Ward Work Phone: Start: 09-03-2021 Radionuclide imaging of perfusion of myocardium under exercise stress Dr. Alan Ward Work Phone: Start: 05-26-2018 Colonoscopy Alan Yarbrough MD Work Phone: Start: 11-24-2017 Adult depression scr eening assessment Alan Ward MD Work Phone: SARS-CoV-2 & FLU Ant igen (Rapid) Dr. Alan Ward Work Phone: Plan of Treatment Date Care Activity Detail Author Start: 2036 RSV Vaccine (1 - 1-dose 75+ series) RSV Vaccine (1 - 1-dose 75+ series) [facility] Start: 04-02-2032 Colonoscopy COLONOSCOPY [facility] Start: 04-02-2032 COLORECTAL CANCER SCREENING COLORECTAL CANCER SCREENING [facility] Start: 04-02-2032 Screening for malignant neoplasm of colon [facility] Start: 09-02-2029 Lipid panel Lipid Screening [facility] Start: 09-02-2028 Lipid panel Lipid Screening [facility] Start: 05-26-2028 Colonoscopy COLONOSCOPY [facility] Start: 05-26-2028 COLORECTAL CANCER SCREENING COLORECTAL CANCER SCREENING [facility] [place] Start: 03-28-2028 Lipid 1996 panel - Serum or Plasma Lipid Screening [facility] [place] Start: 03-28-2028 Lipid panel Lipid Screening [facility] [place] Start: 09-03-2027 Diabetes Screening Diabetes Screening [facility] [place] Start: 03-26-2027 Lipid 1996 panel - Serum or Plasma Lipid Screening [facility] [place] Start: 03-26-2027 LIPID SCREEN LIPID SCREEN [facility] [place] Start: 03-04-2027 Diabetes Screening Diabetes Screening [facility] [place] Start: 01-13-2027 Diabetes Screening Diabetes Screening [facility] [place] Start: 12-20-2026 PROSTATE CANCER SCREENING DISCUSSION PROSTATE CANCER SCREENING DISCUSSION [facility] [place] Start: 12-20-2026 Prostate specific antigen measurement Prostate Cancer Screening Discussion [facility] [place] Start: 09-26-2026 PROSTATE CANCER SCREENING DISCUSSION PROSTATE CANCER SCREENING DISCUSSION [facility] [place] Start: 09-02-2026 Diabetes Screening Diabetes Screening [facility] [place] Start: 04-19-2026 Diabetes Screening Diabetes Screening [facility] [place] Start: 03-28-2026 Diabetes Screening Diabetes Screening [facility] [place] Start: 03-23-2026 LIPID SCREEN LIPID SCREEN [facility] [place] Start: 02-08-2026 Annual PCP Team Chronic Disease Visit Annual PCP Team Chronic Disease Visit [facility] [place] Start: 10-18-2025 Annual PCP Team Chronic Disease Visit Annual PCP Team Chronic Disease Visit [facility] [place] Start: 10-18-2025 BP Controlled (<130/80) BP Controlled (<130/80) [facility] Start: 09-26-2025 DIABETES SCREEN DIABETES SCREEN [facility] [place] Start: 09-26-2025 Diabetes Screening Diabetes Screening [facility] [place] Start: 09-17-2025 Annual PCP Team Chronic Disease Visit Annual PCP Team Chronic Disease Visit [facility] [place] Start: 09-17-2025 BP Controlled (<130/80) BP Controlled (<130/80) [facility] Start: 09-06-2025 Annual PCP Team Chronic Disease Visit Annual PCP Team Chronic Disease Visit [facility] [place] Start: 09-06-2025 BP Controlled (<130/80) BP Controlled (<130/80) [facility] Start: 09-06-2025 Depression Screening Depression Screening [facility] [place] Start: 09-06-2025 Pneumococcal Vaccine: 50+ (1 of 1 - PCV) Pneumococcal Vaccine: 50+ (1 of 1 - PCV) [facility] [place] Comment on above: Postponed from 2011 (Declined at t his time) Start: 08-16-2025 Annual PCP Team Chronic Disease Visit Annual PCP Team Chronic Disease Visit [facility] [place] Start: 08-16-2025 BP Controlled (<130/80) BP Controlled (<130/80) [facility] Start: 07-09-2025 Annual PCP Team Chronic Disease Visit Annual PCP Team Chronic Disease Visit [facility] [place] Start: 07-09-2025 BP Controlled (<130/80) BP Controlled (<130/80) [facility] Start: 06-07-2025 Annual PCP Team Chronic Disease Visit Annual PCP Team Chronic Disease Visit [facility] [place] Start: 03-26-2025 DIABETES SCREEN DIABETES SCREEN [facility] [place] Start: 03-22-2025 End: 03-22-2025 Patient encounter procedure 03/22/2025 3:00 PM EDT Office Visit [facility] [address] [place] [address] Alan Ward MD [address] [place] [address] [facility] [place] Comment on above: [facility] Start: 03-09-2025 End: 06-08-2025 Hemoglobin A1c in Blood HEMOGLOBIN A1C Lab Routine Hyperglycemia Expected: 03/09/2025, Expires: 06/08/2025 [facility] [place] Comment on above: Expected: 03/09/2025, Expires: Start: 03-08-2025 Annual PCP Team Chronic Disease Visit Annual PCP Team Chronic Disease Visit [facility] [place] Start: 03-08-2025 BP Controlled (<130/80) BP Controlled (<130/80) [facility] Start: 03-08-2025 Covid-19 Vaccine ( season) Covid-19 Vaccine () [facility] [place] Comment on above: Postponed from 02/22/2024 (Declined at t his time) Start: 03-08-2025 Covid-19 Vaccine () Covid-19 Vaccine () [facility] [place] Comment on above: Postponed from 02/22/2024 (Declined at t his time) Start: 02-21-2025 Influenza vaccination [facility] [place] Start: 01-14-2025 End: 01-14-2025 Patient encounter procedure 01/14/2025 8:00 AM EDT Appointment Radiology [address] [place], [place] [address] Posterior tibial tendon dysfunction [M76.829] Radiology Comment on above: Posterior tibial tendon dysfunction [M76 .829] Start: 01-13-2025 Annual PCP Team Chronic Disease Visit Annual PCP Team Chronic Disease Visit [facility] [place] Start: 01-13-2025 BP Controlled (<130/80) BP Controlled (<130/80) [facility] Start: 01-13-2025 Shingrix Vaccine (1 of 2) Shingrix Vaccine (1 of 2) [facility] [place] Comment on above: Postponed from 2011 (Declined at t his time) Start: 01-13-2025 Urine microalbumin profile DTaP,Tdap,Td Vaccine (2 - Td or Tdap) [facility] [place] Comment on above: Postponed from 12/02/2018 (Declined at t his time) Start: 01-03-2025 End: 01-03-2025 ambulatory 01/03/2025 9:45 AM EDT OT/PT/Speech Visit [facility] [address] [place] [address] John Ornelas PT M79.672 (ICD-10-CM) - Foot pain, left [facility] Comment on above: M79.672 (ICD-10-CM) - Foot pain, left Start: 12-27-2024 End: 12-27-2024 ambulatory 12/27/2024 9:30 AM EDT OT/PT/Speech Visit [facility] [address] [place] [address] Pushpa Williamson, MANAGER ACQUISITION [address] [place] [address] M79.672 (ICD-10-CM) - Foot pain, left [facility] Comment on above: M79.672 (ICD-10-CM) - Foot pain, left Start: 12-23-2024 End: 12-23-2024 Patient encounter procedure 12/23/2024 9:00 AM EDT Office Visit Podiatry [address] [place] [address] Sandeep Iqbal [address] [place] [address] new consult plantar faciitis Podiatry Comment on above: new consult plantar faciitis Start: 12-21-2024 End: 12-21-2024 ambulatory 12/21/2024 9:15 AM EDT OT/PT/Speech Visit [facility] [address] [place] [address] John Ornelas PT M79.672 (ICD-10-CM) - Foot pain, left [facility] Comment on above: M79.672 (ICD-10-CM) - Foot pain, left Start: 12-20-2024 Influenza vaccination Influenza Vaccine (#1) [facility] Comment on above: Postponed from 02/22/2024 (Declined at t his time) Start: 12-16-2024 End: 12-16-2024 ambulatory 12/16/2024 9:30 AM EDT OT/PT/Speech Visit [facility] [address] [place] [address] Pushpa Williamson, MANAGER ACQUISITION [address] [place] [address] M79.672 (ICD-10-CM) - Foot pain, left [facility] Comment on above: M79.672 (ICD-10-CM) - Foot pain, left Start: 12-14-2024 End: 12-14-2024 ambulatory 12/14/2024 9:30 AM EDT OT/PT/Speech Visit [facility] [address] [place] [address] Pushpa Williamson, MANAGER ACQUISITION [address] [place] [address] M79.672 (ICD-10-CM) - Foot pain, left [facility] Comment on above: M79.672 (ICD-10-CM) - Foot pain, left Start: 12-07-2024 End: 12-07-2024 ambulatory 12/07/2024 9:15 AM EDT OT/PT/Speech Visit [facility] [address] [place] [address] John Ornelas, PT M79.672 (ICD-10-CM) - Foot pain, left [facility] Comment on above: M79.672 (ICD-10-CM) - Foot pain, left Start: 12-02-2024 End: 12-02-2024 ambulatory 12/02/2024 9:30 AM EDT OT/PT/Speech Visit [facility] [address] [place] [address] Pushpa Williamson, MANAGER ACQUISITION [address] [place] [address] M79.672 (ICD-10-CM) - Foot pain, left [facility] Comment on above: M79.672 (ICD-10-CM) - Foot pain, left Start: 11-29-2024 BP Controlled (<130/80) BP Controlled (<130/80) [facility] Start: 11-25-2024 End: 11-25-2024 ambulatory 11/25/2024 9:15 AM EDT OT/PT/Speech Visit [facility] [address] [place] [address] John Ornelas, PT M79.672 (ICD-10-CM) - Foot pain, left [facility] Comment on above: M79.672 (ICD-10-CM) - Foot pain, left Start: 11-18-2024 End: 11-18-2024 ambulatory 11/18/2024 9:30 AM EDT OT/PT/Speech Visit [facility] [address] [place] [address] Pushpa Williamson, MANAGER ACQUISITION [address] [place] [address] M79.672 (ICD-10-CM) - Foot pain, left [facility] Comment on above: M79.672 (ICD-10-CM) - Foot pain, left Start: 11-11-2024 End: 11-11-2024 ambulatory 11/11/2024 9:30 AM EDT OT/PT/Speech Visit [facility] [address] [place] [address] Pushpa Williamson, MANAGER ACQUISITION [address] [place] [address] M79.672 (ICD-10-CM) - Foot pain, left [facility] Comment on above: M79.672 (ICD-10-CM) - Foot pain, left Start: 11-04-2024 End: 11-04-2024 ambulatory 11/04/2024 10:45 AM EDT OT/PT/Speech Visit [facility] [address] [place] [address] John Ornelas PT M79.672 (ICD-10-CM) - Foot pain, left [facility] Comment on above: M79.672 (ICD-10-CM) - Foot pain, left Start: 11-02-2024 DIABETES SCREEN DIABETES SCREEN [facility] [place] Start: 10-25-2024 End: 10-25-2024 ambulatory 10/25/2024 9:00 AM EDT OT/PT/Speech Visit [facility] [address] [place] [address] John Ornelas PT Chronic pain of both shoulders [M25.511, G89.29, M25.512] [facility] Comment on above: Chronic pain of both shoulders [M25.511, G89.29, M25.512] Start: 10-11-2024 End: 10-11-2024 ambulatory 10/11/2024 8:30 AM EDT Results Only [facility] [address] [place] [address] [facility] Start: 10-07-2024 End: 01-06-2025 Platelets [#/volume] in Blood PLATELET COUNT Lab Routine Thrombocytosis Expected: 10/07/2024, Expires: 01/06/2025 [facility] Work Phone: Comment on above: Expected: 10/07/2024, Expires: Start: 09-21-2024 DIABETES SCREEN DIABETES SCREEN [facility] [place] Start: 09-17-2024 End: 09-17-2024 Patient encounter procedure 09/17/2024 2:40 PM EDT Office Visit Family [facility] [address] [place] [address] Alan Ward MD [address] [place] [address] Follow up Family [facility] Comment on above: Follow up Start: 09-13-2024 End: 09-13-2024 Patient encounter procedure 09/13/2024 8:15 AM EDT Office Visit Orthopaedics [address] [place] [address] Armand Mcfadden MD [address] [place] [address] Chronic pain of both shoulders [M25.511, G89.29, M25.512] Orthopaedics Comment on above: Chronic pain of both shoulders [M25.511, G89.29, M25.512] Start: 09-06-2024 End: 09-06-2024 Patient encounter procedure 09/06/2024 8:40 AM EDT Office Visit [facility] [address] [place], [place] [address] Alan Ward MD [address] [place], [place] [address] 6 month follow up. fasting labs prior [facility] Comment on above: 6 month follow up. fasting labs prior Start: 09-05-2024 End: 12-05-2024 CBC W Auto Differential panel - Blood COMPLETE BLOOD COUNT AND DIFFERENTIAL Lab Routine Mixed hyperlipidemia Expected: 09/05/2024, Expires: 12/05/2024 [facility] [place] Comment on above: Expected: 09/05/2024, Expires: Start: 09-05-2024 End: 12-05-2024 Comprehensive metabolic 2000 panel - Serum or Plasma COMPREHENSIVE METABOLIC PANEL Lab Routine Mixed hyperlipidemia Expected: 09/05/2024, Expires: 12/05/2024 [facility] [place] Comment on above: Expected: 09/05/2024, Expires: Start: 09-05-2024 End: 12-05-2024 Hemoglobin A1c in Blood HEMOGLOBIN A1C Lab Routine Hyperglycemia Expected: 09/05/2024, Expires: 12/05/2024 [facility] [place] Comment on above: Expected: 09/05/2024, Expires: Start: 09-05-2024 End: 12-05-2024 Lipid 1996 panel - Serum or Plasma LIPID PANEL BASIC Lab Routine Mixed hyperlipidemia Expected: 09/05/2024, Expires: 12/05/2024 [facility] [place] Comment on above: Expected: 09/05/2024, Expires: Start: 09-04-2024 Annual PCP Team Chronic Disease Visit Annual PCP Team Chronic Disease Visit [facility] [place] Start: 09-04-2024 Covid-19 Vaccine () Covid-19 Vaccine (2022- season) [facility] [place] Comment on above: Postponed from 02/21/2023 (Declined at t his time) Start: 09-04-2024 RSV Vaccine (1 - 1-dose 60+ series) RSV Vaccine (1 - 1-dose 60+ series) [facility] [place] Comment on above: Postponed from 2021 (Declined at t his time) Start: 08-24-2024 End: 11-23-2024 Fungus identified in Unspecified specimen by Culture YEAST SCREEN Microbiology Routine Soreness of tongue Expected: 08/24/2024, Expires: 11/23/2024 [facility] Work Phone: Comment on above: Expected: 08/24/2024, Expires: Start: 08-09-2024 End: 08-09-2024 Patient encounter procedure 08/09/2024 2:15 PM EST Office Visit Orthopaedics [address] [place] [address] Armand Mcfadden MD [address] [place] [address] Chronic pain of both shoulders [M25.511, G89.29, M25.512] Orthopaedics Comment on above: Chronic pain of both shoulders [M25.511, G89.29, M25.512] Start: 07-09-2024 End: 07-09-2024 Patient encounter procedure 07/09/2024 3:00 PM EST Office Visit Family [facility] [place] [address] [place] [address] Alan Ward MD [address] [place] [address] follow up Family [facility] Comment on above: follow up Start: 04-30-2024 End: 04-30-2024 ambulatory 04/30/2024 1:00 PM EST OT/PT/Speech Visit [facility] [address] [place] [address] John Ornelas PT M77.8 (ICD-10-CM) - Tendinitis of shoulder, unspecified laterality [facility] Comment on above: M77.8 (ICD-10-CM) - Tendinitis of should er, unspecified laterality Start: 04-23-2024 End: 04-23-2024 ambulatory 04/23/2024 8:15 AM EDT OT/PT/Speech Visit [facility] [address] [place] [address] John Ornelas, PT M77.8 (ICD-10-CM) - Tendinitis of shoulder, unspecified laterality [facility] Comment on above: M77.8 (ICD-10-CM) - Tendinitis of should er, unspecified laterality Start: 04-19-2024 Annual PCP Team Chronic Disease Visit Annual PCP Team Chronic Disease Visit [facility] Start: 04-16-2024 End: 04-16-2024 ambulatory 04/16/2024 8:00 AM EDT OT/PT/Speech Visit [facility] [address] [place] [address] Pushpa Williamson, MANAGER ACQUISITION [address] [place] [address] M77.8 (ICD-10-CM) - Tendinitis of shoulder, unspecified laterality [facility] Comment on above: M77.8 (ICD-10-CM) - Tendinitis of should er, unspecified laterality Start: 04-14-2024 End: 04-14-2024 ambulatory 04/14/2024 10:30 AM EDT OT/PT/Speech Visit [facility] [address] [place] [address] John Ornelas, PT M77.8 (ICD-10-CM) - Tendinitis of shoulder, unspecified laterality [facility] Comment on above: M77.8 (ICD-10-CM) - Tendinitis of should er, unspecified laterality Start: 04-09-2024 End: 04-09-2024 ambulatory 04/09/2024 8:00 AM EDT OT/PT/Speech Visit [facility] [address] [place] [address] Pushpa Williamson, MANAGER ACQUISITION [address] [place] [address] M77.8 (ICD-10-CM) - Tendinitis of shoulder, unspecified laterality [facility] Comment on above: M77.8 (ICD-10-CM) - Tendinitis of should er, unspecified laterality Start: 03-31-2024 End: 03-31-2024 ambulatory 03/31/2024 9:00 AM EDT OT/PT/Speech Visit [facility] [address] [place] [address] John Ornelas, CHANCE Tendinitis of shoulder, unspecified laterality [M77.8] [facility] Comment on above: Tendinitis of shoulder, unspecified late rality [M77.8] Start: 03-23-2024 DIABETES SCREEN DIABETES SCREEN [facility] Start: 03-08-2024 Depression Screening Depression Screening [facility] Comment on above: Postponed from 1979 (Declined at t his time) Start: 03-08-2024 End: 03-08-2024 Patient encounter procedure 03/08/2024 10:20 AM EDT Office Visit [facility] [address] [place] [address] Alan Ward MD [address] [place] [address] 6 month follow up. Labs prior [facility] Comment on above: 6 month follow up. Labs prior Start: 03-07-2024 End: 06-06-2024 CBC W Auto Differential panel - Blood CBC + DIFF Lab Routine Paroxysmal atrial fibrillation (HCC) Expected: 03/07/2024, Expires: 06/06/2024 [facility] Work Phone: Comment on above: Expected: 03/07/2024, Expires: Start: 03-07-2024 End: 06-06-2024 Hemoglobin A1c in Blood HGB A1C Lab Routine Hyperglycemia Expected: 03/07/2024, Expires: 06/06/2024 [facility] Work Phone: Comment on above: Expected: 03/07/2024, Expires: Start: 03-04-2024 Annual PCP Team Chronic Disease Visit Annual PCP Team Chronic Disease Visit [facility] [place] Start: 02-22-2024 Covid-19 Vaccine () Covid-19 Vaccine () [facility] Start: 02-22-2024 Influenza vaccination [facility] Start: 01-14-2024 Depression Screening Depression Screening [facility] Comment on above: Postponed from 1979 (Declined at t his time) Start: 01-14-2024 End: 04-14-2024 Hemoglobin A1c in Blood [facility] [place] Comment on above: Expected: 01/14/2024, Expires: Start: 01-14-2024 End: 04-14-2024 T4/FTI/T4U [facility] [place] Comment on above: Expected: 01/14/2024, Expires: Start: 01-14-2024 End: 04-14-2024 Thyrotropin [Units/volume] in Serum or Plasma [facility] Work Phone: Comment on above: Expected: 01/14/2024, Expires: Start: 01-14-2024 End: 04-14-2024 Triiodothyronine (T3) [Mass/volume] in Serum or Plasma [facility] [place] Comment on above: Expected: 01/14/2024, Expires: Start: 12-21-2023 Influenza vaccination Influenza Vaccine (#1) [facility] Comment on above: Postponed from 02/21/2023 (Declined at t his time) Start: 11-26-2023 ANNUAL PCP TEAM CHRONIC DISEASE VISIT ANNUAL PCP TEAM CHRONIC DISEASE VISIT [facility] Start: 10-22-2023 ANNUAL PCP TEAM CHRONIC DISEASE VISIT ANNUAL PCP TEAM CHRONIC DISEASE VISIT [facility] Start: 10-03-2023 ANNUAL PCP TEAM CHRONIC DISEASE VISIT ANNUAL PCP TEAM CHRONIC DISEASE VISIT [facility] [place] Start: 10-03-2023 COVID-19 VACCINE (4 - Booster for Pfizer series) COVID-19 VACCINE (4 - Booster for Pfizer series) [facility] Comment on above: Postponed from 08/01/2021 (Declined at t his time) Start: 10-03-2023 COVID-19 VACCINE (5 - Pfizer series) COVID-19 VACCINE (5 - Pfizer series) [facility] Comment on above: Postponed from 08/01/2021 (Declined at t his time) Start: 10-03-2023 SHINGRIX VACCINE (1 of 2) SHINGRIX VACCINE (1 of 2) [facility] Comment on above: Postponed from 2011 (Declined at t his time) Start: 10-03-2023 Urine microalbumin profile [facility] Comment on above: Postponed from 12/02/2018 (Declined at t his time) Start: 08-28-2023 End: 11-27-2023 CBC W Auto Differential panel - Blood CBC + DIFF Lab Routine Essential hypertension Mixed hyperlipidemia Expected: 08/28/2023, Expires: 11/27/2023 [facility] Work Phone: Comment on above: Expected: 08/28/2023, Expires: 4 Start: 08-28-2023 End: 11-27-2023 Comprehensive metabolic 2000 panel - Serum or Plasma COMP METABOLIC PANEL Lab Routine Essential hypertension Mixed hyperlipidemia Expected: 08/28/2023, Expires: 11/27/2023 [facility] Work Phone: Comment on above: Expected: 08/28/2023, Expires: 4 Start: 08-28-2023 End: 11-27-2023 Hemoglobin A1c in Blood HGB A1C Lab Routine Essential hypertension Mixed hyperlipidemia Expected: 08/28/2023, Expires: 11/27/2023 [facility] Work Phone: Comment on above: Expected: 08/28/2023, Expires: 4 Start: 08-28-2023 End: 11-27-2023 Lipid 1996 panel - Serum or Plasma LIPID PANEL BASIC Lab Routine Essential hypertension Mixed hyperlipidemia Expected: 08/28/2023, Expires: 11/27/2023 [facility] Work Phone: Comment on above: Expected: 08/28/2023, Expires: Start: 06-23-2023 Behavioral Health Screening Behavioral Health Screening [facility] Start: 06-23-2023 Depression Assessment Depression Assessment [facility] Start: 05-02-2023 BP CONTROLLED (<130/80) BP CONTROLLED (<130/80) [facility] Start: 04-19-2023 End: 07-19-2023 Bacteria identified in Urine by Culture [facility] Work Phone: Comment on above: Expected: 04/19/2023, Expires: Start: 04-19-2023 End: 07-19-2023 Basic metabolic 2000 panel - Serum or Plasma [facility] Work Phone: Comment on above: Expected: 04/19/2023, Expires: Start: 04-19-2023 End: 07-19-2023 CBC W Auto Differential panel - Blood [facility] Work Phone: Comment on above: Expected: 04/19/2023, Expires: Start: 04-19-2023 End: 07-19-2023 Urinalysis complete panel - Urine [facility] Work Phone: Comment on above: Expected: 04/19/2023, Expires: Start: 03-29-2023 ANNUAL PCP TEAM CHRONIC DISEASE VISIT ANNUAL PCP TEAM CHRONIC DISEASE VISIT [facility] Start: 02-21-2023 Covid-19 Vaccine ( season) Covid-19 Vaccine ( season) [facility] Start: 02-21-2023 Influenza vaccination [facility] Start: 01-14-2023 ANNUAL PCP TEAM CHRONIC DISEASE VISIT ANNUAL PCP TEAM CHRONIC DISEASE VISIT [facility] Start: 12-20-2022 ANNUAL PCP TEAM CHRONIC DISEASE VISIT ANNUAL PCP TEAM CHRONIC DISEASE VISIT [facility] Start: 12-20-2022 Influenza vaccination INFLUENZA (#1) [facility] Comment on above: Postponed from 02/21/2022 (Declined at t his time) Start: 12-03-2022 ANNUAL PCP TEAM CHRONIC DISEASE VISIT ANNUAL PCP TEAM CHRONIC DISEASE VISIT [facility] Start: 11-09-2022 ANNUAL PCP TEAM CHRONIC DISEASE VISIT ANNUAL PCP TEAM CHRONIC DISEASE VISIT [facility] Start: 11-02-2022 ANNUAL PCP TEAM CHRONIC DISEASE VISIT ANNUAL PCP TEAM CHRONIC DISEASE VISIT [facility] Start: 09-27-2022 End: 11-27-2022 CBC panel - Blood by Automated count CBC Lab Routine Anticoagulant long-term use Expected: 09/27/2022, Expires: 11/27/2022 [facility] Work Phone: Comment on above: Expected: 09/27/2022, Expires: 3 Start: 09-27-2022 End: 11-27-2022 Hemoglobin A1c in Blood HGB A1C Lab Routine Hyperglycemia Expected: 09/27/2022, Expires: 11/27/2022 [facility] Work Phone: Comment on above: Expected: 09/27/2022, Expires: 3 Start: 09-26-2022 Adult depression screening assessment DEPRESSION SCREENING [facility] Start: 09-26-2022 ANNUAL PCP TEAM CHRONIC DISEASE VISIT ANNUAL PCP TEAM CHRONIC DISEASE VISIT [facility] Start: 09-26-2022 FECAL OCCULT BLOOD FECAL OCCULT BLOOD [facility] Start: 09-26-2022 HEPATITIS C SCREENING HEPATITIS C SCREENING [facility] Comment on above: Postponed from 1979 (Declined at t his time) Start: 09-26-2022 HIV SCREENING HIV SCREENING [facility] Comment on above: Postponed from 1979 (Declined at t his time) Start: 09-26-2022 Screening for malignant neoplasm of colon Fecal Occult Blood [facility] Start: 06-23-2022 DEPRESSION ASSESSMENT DEPRESSION ASSESSMENT [facility] Start: 03-28-2022 ANNUAL PCP TEAM CHRONIC DISEASE VISIT ANNUAL PCP TEAM CHRONIC DISEASE VISIT [facility] Start: 03-28-2022 End: 05-28-2022 CBC W Auto Differential panel - Blood CBC + DIFF Lab Routine Paroxysmal atrial fibrillation (HCC) Expected: 03/28/2022, Expires: 05/28/2022 [facility] Work Phone: Comment on above: Expected: 03/28/2022, Expires: 2 Start: 03-28-2022 End: 05-28-2022 Comprehensive metabolic 2000 panel - Serum or Plasma COMP METABOLIC PANEL Lab Routine Mixed hyperlipidemia Expected: 03/28/2022, Expires: 05/28/2022 [facility] Work Phone: Comment on above: Expected: 03/28/2022, Expires: 2 Start: 03-28-2022 End: 05-28-2022 Hemoglobin A1c/Hemoglobin.total in Blood HGB A1C Lab Routine Hyperglycemia Expected: 03/28/2022, Expires: 05/28/2022 [facility] Work Phone: Comment on above: Expected: 03/28/2022, Expires: 2 Start: 03-28-2022 End: 05-28-2022 LIPID PANEL BASIC LIPID PANEL BASIC Lab Routine Mixed hyperlipidemia Expected: 03/28/2022, Expires: 05/28/2022 [facility] Work Phone: Comment on above: Expected: 03/28/2022, Expires: 2 Start: 02-21-2022 Influenza vaccination [facility] Start: 02-15-2022 End: 04-17-2022 Hepatic function 1999 panel - Serum or Plasma HEPATIC FUNCTION PNL Lab Routine Elevated liver enzymes Expected: 02/15/2022, Expires: 04/17/2022 [facility] Work Phone: Comment on above: Expected: 02/15/2022, Expires: 2 Start: 12-21-2021 End: 02-20-2022 ALK PHOS ISOENZYM BL ALK PHOS ISOENZYM BL Lab Routine Elevated liver enzymes Expected: 12/21/2021, Expires: 02/20/2022 [facility] Work Phone: Comment on above: Expected: 12/21/2021, Expires: 2 Start: 12-21-2021 End: 02-20-2022 Hepatic function 2000 panel - Serum or Plasma HEPATIC FUNCTION PNL Lab Routine Elevated liver enzymes Expected: 12/21/2021, Expires: 02/20/2022 [facility] Work Phone: Comment on above: Expected: 12/21/2021, Expires: 2 Start: 11-02-2021 End: 01-02-2022 Basic metabolic 2000 panel - Serum or Plasma [facility] Work Phone: Comment on above: Expected: 11/02/2021, Expires: 2 Start: 11-02-2021 End: 01-02-2022 CBC W Auto Differential panel - Blood [facility] Work Phone: Comment on above: Expected: 11/02/2021, Expires: 2 Start: 10-05-2021 COVID-19 VACCINE (4 - Booster for Pfizer series) COVID-19 VACCINE (4 - Booster for Pfizer series) [facility] Start: 09-17-2021 End: 11-17-2021 Hemoglobin A1c/Hemoglobin.total in Blood HGB A1C Lab Routine Hyperglycemia Expected: 09/17/2021, Expires: 11/17/2021 [facility] Work Phone: Comment on above: Expected: 09/17/2021, Expires: 2 Start: 08-01-2021 COVID-19 VACCINE (4 - Booster for Pfizer series) COVID-19 VACCINE (4 - Booster for Pfizer series) [facility] Start: 07-24-2021 PROSTATE CANCER SCREENING DISCUSSION PROSTATE CANCER SCREENING DISCUSSION [facility] Start: 2021 RSV Vaccine (1 - 1-dose 60+ series) RSV Vaccine (1 - 1-dose 60+ series) [facility] Start: 02-21-2021 Influenza vaccination INFLUENZA (#1) [facility] Start: 12-02-2018 Urine microalbumin profile [facility] Start: 11-24-2018 Adult depression screening assessment DEPRESSION SCREENING [facility] Start: 09-05-2017 FECAL OCCULT BLOOD FECAL OCCULT BLOOD [facility] Start: 2011 Pneumococcal Vaccine: 50+ (1 of 1 - PCV) Pneumococcal Vaccine: 50+ (1 of 1 - PCV) [facility] Start: 2011 SHINGRIX VACCINE (1 of 2) SHINGRIX VACCINE (1 of 2) [facility] Start: 2006 COLOGUARD (FIT-DNA) COLOGUARD (FIT-DNA) [facility] Start: [address] COLONOGRAPHY [facility] Start: 2006 Screening for malignant neoplasm of colon [facility] Start: 2006 SIGMOIDOSCOPY SIGMOIDOSCOPY [facility] Start: 1979 BP CONTROLLED (<130/80) BP CONTROLLED (<130/80) [facility] in Start: 1979 Depression Screening Depression Screening [facility] Start: 1979 HEPATITIS C SCREENING HEPATITIS C SCREENING [facility] Start: 1979 HIV SCREENING HIV SCREENING [facility] Start: 1979 HIV screening HIV Screening [facility] Cardiac event recording [facility] End: 01-17-2023 COLONOSCOPY DIAGNOSTIC COLONOSCOPY DIAGNOSTIC Endoscopy Routine Abdominal discomfort Unilateral inguinal hernia without obstruction or gangrene, recurrence not specified 1 Occurrences starting 01/17/2022 until 01/17/2023 [facility] Work Phone: Comment on above: 1 Occurrences starting 01/17/2022 until 01/17/2023 End: 01-02-2023 Ct abdomen & pelvis w/contrast material CT ABD/PEL W IVCON Radiology Routine Abdominal discomfort in right lower quadrant Abdominal discomfort in left lower quadrant Right lower quadrant abdominal pain 1 Occurrences starting 12/03/2021 until 01/02/2023 [facility] Work Phone: Comment on above: 1 Occurrences starting 12/03/2021 until 01/02/2023 End: 01-17-2023 EGD DIAGNOSTIC EGD DIAGNOSTIC Endoscopy Routine Abdominal discomfort Unilateral inguinal hernia without obstruction or gangrene, recurrence not specified 1 Occurrences starting 01/17/2022 until 01/17/2023 [facility] Work Phone: Comment on above: 1 Occurrences starting 01/17/2022 until 01/17/2023 End: 01-22-2026 MR Ankle - left WO and W contrast IV MRI ANKLE WO/W IVCON LEFT Radiology Routine Posterior tibial tendon dysfunction Soft tissue mass 1 Occurrences starting 12/23/2024 until 01/22/2026 [facility] Work Phone: Comment on above: 1 Occurrences starting 12/23/2024 until 01/22/2026 OUTSIDE VENDOR CARDI AC OUTPATIENT EXTENDED RHYTHM RECORDING (WITHOUT TELEMETRY) OUTSIDE VENDOR CARDIAC OUTPATIENT EXTENDED RHYTHM RECORDING (WITHOUT TELEMETRY) Holter Routine Paroxysmal atrial fibrillation (HCC) Ordered: 01/14/2024 [facility] Comment on above: Ordered: 01/14/2024 Patient Education [facility] Work Phone: Patient referral [facility] Work Phone: POST VOID RESIDUAL POST VOID RES IDUAL Procedures Routine Abdominal discomfort Ordered: 12/25/2021 [facility] Work Phone: Comment on above: Ordered: 12/25/2021 PT PLAN OF CARE CERTIFICATION PT PLAN OF CARE CERTIFICATION Procedures Routine Benign paroxysmal positional vertigo, unspecified laterality Ordered: 12/20/2022 [facility] Comment on above: Ordered: 12/20/2022 US Heart [facility] End: 05-18-2024 US KIDNEY/BLADDER US KIDNEY/BLADDER Radiology Routine Left inguinal pain Hydroureter 1 Occurrences starting 04/19/2023 until 05/18/2024 [facility] Work Phone: Comment on above: 1 Occurrences starting 04/19/2023 until 05/18/2024 End: 08-08-2025 XR Ankle - left AP and Lateral and oblique XR ANKLE GENERAL 3V AP/LAT/OBL LEFT Radiology Routine Sprain of ligament of left ankle, initial encounter 1 Occurrences starting 07/09/2024 until 08/08/2025 [facility] Work Phone: Comment on above: 1 Occurrences starting 07/09/2024 until 08/08/2025 XR Ankle - left AP a nd Lateral and oblique XR ANKLE GENERAL 3V AP/LAT/OBL LEFT Radiology Routine Sprain of ligament of left ankle, initial encounter 07/09/2024 4:04 PM EST [facility] XR Foot - left AP an d Lateral and oblique XR FOOT GENERAL 3V AP/LAT/OBL LEFT Radiology Routine Pain in left foot 12/23/2024 9:01 AM EDT [facility] Work Phone: End: 04-07-2025 XR Shoulder - left 3 Views XR SHOULDER GENERAL 3V OR MORE AP/TRUE AP/OTHER LEFT Radiology Routine Tendinitis of shoulder, unspecified laterality 1 Occurrences starting 03/08/2024 until 04/07/2025 [facility] Work Phone: Comment on above: 1 Occurrences starting 03/08/2024 until 04/07/2025 XR Shoulder - left 3 Views XR SHOULDER GENERAL 3V OR MORE AP/TRUE AP/OTHER LEFT Radiology Routine Tendinitis of shoulder, unspecified laterality 03/08/2024 11:26 AM EDT [facility] End: 04-07-2025 XR Shoulder - right 3 Views XR SHOULDER GENERAL 3V OR MORE AP/TRUE AP/OTHER RIGHT Radiology Routine Tendinitis of shoulder, unspecified laterality 1 Occurrences starting 03/08/2024 until 04/07/2025 [facility] Comment on above: 1 Occurrences starting 03/08/2024 until 04/07/2025 XR Shoulder - right 3 Views XR SHOULDER GENERAL 3V OR MORE AP/TRUE AP/OTHER RIGHT Radiology Routine Tendinitis of shoulder, unspecified laterality 03/08/2024 11:26 AM EDT [facility] Immunizations Immunization Date Immunization Notes Care Provider Fa [facility] 09-29-2020 COVID-19 vaccine, ag e 12+ yr (PFIZER-BIONTECH - PURPLE TOP) Alan Ward MD Work Phone: [facility] Work Phone: 09-08-2020 COVID-19 vaccine, ag e 12+ yr (PFIZER-BIONTECH - PURPLE TOP) Alan Ward MD Work Phone: [facility] 03-19-2018 influenza virus vaccine, unspecified formulation Alan Ward MD Work Phone: [facility] 12-02-2008 tetanus toxoid, redu bonnie diphtheria toxoid, and acellular pertussis vaccine, adsorbed Alan Ward MD Work Phone: [facility] Payers Date Payer Category Payer Blue [facility] [employer]LLIE [employer] [id number] 2024 Unknown [id number] 2023 Self-pay [id number] 2019 Unknown MMO MMO [employer] [id number] 2019-Present [phone] [address] [place] [address] PPO [id number] 2019 Unknown [id number] 2004 Unknown [id number] 2004 Unknown [id number] Unknown [id number] Unknown [id number] Unknown [id number] Unknown [id number] Unknown [id number] Social History Date Type Detail Facility Start: 07-08-2011 End: 03-29-2022 Tobacco smoking status NHIS Never smoked tobacco [facility] Start: 08-25-2021 End: 12-23-2024 Alcohol intake Current drinker of alcohol (finding) [facility] Start: 1960 Sex Assigned At Not on file C [facility] Start: 07-26-2021 End: 04-11-2022 Exposure to SARS-CoV-2 (event) Not sure [facility] Start: 09-05-2021 End: 08-07-2022 Tobacco smoking status AZIS Unknown if ever smoked [facility] Start: 04-11-2018 None [facility] Start: 04-11-2018 Spouse/ Signif icant Other [facility] Start: 1960 Sex Assigned At Male W [facility] Start: 07-08-2011 End: 03-29-2022 Tobacco use and exposure Smokeless tobacco non-user [facility] Start: 11-25-2022 End: 09-06-2024 History of Social function [facility] Work Phone: Start: 11-25-2022 End: 09-06-2024 Tobacco use panel [facility] Work Phone: Start: 05-24-2012 Adult Depression Screening Assessment 0 [facility] Work Phone: Start: 10-18-2024 Sex Male (finding) [facility] Functional Status Date Assessment Result Facility 01-18-2015 Are you deaf, or do you have serious difficulty hearing No 01/18/2015 4:57 PM EDT Romana Tejada MA No [facility] 01-18-2015 Are you blind, or do you have serious difficulty seeing, even when wearing glasses No 01/18/2015 4:57 PM EDT Romana Tejada MA No [facility] 01-18-2015 Do you have serious difficulty walking or climbing stairs No 01/18/2015 4:57 PM EDT Romana Tejada MA No [facility] 01-18-2015 Do you have difficul ty dressing or bathing No 01/18/2015 4:57 PM EDT Romana Tejada MA [facility] 01-18-2015 Because of a physica l, mental, or emotional condition, do you have difficulty doing errands alone such as visiting a physician's office or shopping No 01/18/2015 4:57 PM EDT Romana Tejada MA [facility] Mental Status Date Assessment Result Facility 08-07-2022 Cognitive function Level Of Cons ciousness Awake;Alert;Appropriate;Fol lows Commands [facility] Work Phone: 01-18-2015 Because of a physica l, mental, or emotional condition, do you have serious difficulty concentrating, remembering, or making decisions No 01/18/2015 4:57 PM EDT Romana Tejada MA [facility] Clinical Notes 12-03-2013 to 05-02-2025 Telephone Encounter - Lashawn Pagan MA - 02/11/2025 10:58 AM EDTTelephone Encounter - Lashawn Pagan MA - 02/11/2025 10:58 AM ALPHONSETJoseph Loera APRN.[facility] - 02/08/2025 1:55 PM EDT Note Date & Type Note Facility 05-02-2025 Note HNO ID: [id number] Author: ALAN WARD MD Service: ? Author Type: Physician Type: Progress Notes Filed: 05/02/2025 19:47 Note Text: The patient is a 64-year-old male presenting for evaluation of a 6-day history of sore throat, nasal congestion, and dry cough. HPI Jamir Piedra is a 64-year-old male presenting for evaluation of URI symptoms. URI Symptoms: - Onset of symptoms 6 days ago, beginning with a sore throat. - Current symptoms include sore throat, congestion, dry cough, and ear pressure. - Denies productive cough, dyspnea, chest discomfort, abdominal pain, nausea, emesis, or diarrhea. - Sore throat has improved slightly this afternoon. - Using saline spray for congestion. - Previously used Nasacort but discontinued due to concerns about thrush. - Denies performing a home COVID test. - Recent history of a stomach bug 3 weeks ago, with diarrhea but no emesis. - Son, who is in preschool, has a runny nose but no other respiratory symptoms. - Received flu shot recently. MEDICATIONS: Current Outpatient Medications Medication Sig LORazepam (ATIVAN) 0.5 mg Take 1 tablet by mouth three times a day as needed (anxiety) for up to 90 days. Fexofenadine-Pseudoephedrine (SHANNAN-D 24 HOUR) 180-240 mg per 24 hr tablet Take 1 tablet by mouth once daily. loratadine/pseudoephedrine (CLARITIN-D 24 HOUR ORAL) Take 1 tablet by mouth once daily. benazepril (LOTENSIN) 20 mg tablet Take 1 tablet by mouth two times a day. flecainide (TAMBOCOR) 100 mg tablet Take 100 mg by mouth as needed. dilTIAZem CD (CARDIZEM CD, CARTIA XT) 240 mg 24 hr capsule Take 1 capsule by mouth once daily. aspirin, enteric coated (ECOTRIN LOW STRENGTH) 81 mg EC tablet Take 81 mg by mouth once daily. atorvastatin (LIPITOR) 20 mg tablet Take 1 tablet by mouth once daily. triamcinolone acetonide (NASACORT NASAL) Use in the nose. calcium carbonate (TUMS ORAL) Take 2 tablets by mouth as needed. hydroCHLOROthiazide (HYDRODIURIL, ESIDRIX) 12.5 mg tablet Take 12.5 mg by mouth twice daily. melatonin 3 mg capsules Take 3 mg by mouth at bedtime as needed. potassium chloride (K-TAB) 10 mEq tablet Take 10 mEq by mouth once daily. metoprolol tartrate, short acting, (LOPRESSOR) 100 mg tablet Take 100 mg by mouth twice daily. No current facility-administered medications for this visit. ALLERGIES: ALLERGIES Allergen Reactions Vicodin [Hydrocodon* Mental Status Change PAST MEDICAL HISTORY Diagnosis Date Anticoagulant long-term use Arrhythmia At risk for stroke [id number] = 1 (HTN) Essential hypertension Essential hypertension Generalized anxiety disorder Hemorrhage of gastrointestinal tract, unspecified Hemorrhoids Paroxysmal atrial fibrillation (HCC) Rectal bleeding 09/2021 Sleep apnea does not use cpap. Snoring PAST SURGICAL HISTORY Procedure Laterality Date COLONOSCOPY FLX DX W/COLLJ SPEC WHEN PFRMD 07/11/2008 Colonoscopy COLONOSCOPY FLX DX W/COLLJ SPEC WHEN PFRMD 05/26/2018 Colonoscopy ESOPHAGOGASTRODUODENOSCOPY TRANSORAL DIAGNOSTIC 05/26/2018 EGD ESOPHAGOGASTRODUODENOSCOPY TRANSORAL DIAGNOSTIC 04/02/2022 EYE SURGERY HX HEMORRHOID: RUBBERBAND, SINGLE/MULTIPLE 10/04/2021 HEMORRHOID;BAND LIGAT, SNGL/MUL 04/02/2022 HEMORRHOIDECTOMY INTERNAL RUBBER BAND LIGATIONS 05/26/2018 PROCEDURE RM-COLONSCOPY W/BX 04/02/2022 FAMILY HISTORY Problem Relation Age of Onset Heart Mother Valve Replacement COPD Mother other (history of smoking) Mother Hypertension Father Kidney failure Father kidney disease - on dialysis Heart disease Father heart valve problem Hypertension Sister Hyperlipidemia Sister other (sudden infant ) Brother other (sudden infant ) Brother Thyroid Son Prostate Cancer No Family History none SOCIAL HISTORY[1] Reviewed current medications, allergies, past medical history, surgical history, family history and social history today. REVIEW OF SYSTEMS Ears/Nose/Mouth/Throat: (+) sore throat, (+) nasal congestion, (+) ear pressure, (+) sinus pressure Respiratory: (+) dry cough, (-) sputum production, (-) shortness of breath Cardiovascular: (-) chest discomfort Gastrointestinal: (-) abdominal pain, (-) nausea, (-) vomiting, (-) diarrhea HEALTH MAINTENANCE: Reviewed health maintenance issues today and recommended the following in detail. Covid-19 Vaccine( season) due on 02/21/2025 LAB REVIEWED: VITALS: BP 120/72 Pulse 60 Temp 36.1 ?C (96.9 ?F) Wt 105.2 kg (232 lb) SpO2 97% BMI 32.30 kg/m? Last 4 Encounter Wt Readings: Date: Wt: 05/02/2025 105.2 kg (232 lb) 04/04/2025 105 kg (231 lb 7.7 oz) 03/22/2025 106.5 kg (234 lb 12.8 oz) 02/08/2025 106 kg (233 lb 11 oz) PHYSICAL EXAMINATION: General: Alert, well-developed, no acute distress. HEENT: Mouth and throat appear normal, no pharyngeal erythema. Sinus tenderness noted with pressure. Ears with pressure sensation. Neck: No JVD. No car (more content not included)... [facility] 04-04-2025 Note HNO ID: [id number] Author: JOSEPH LOERA APRN.[employer] Service: ? Author Type: Nurse Practitioner Type: Progress Notes Filed: 04/04/2025 15:31 Note Text: Chief Complaint Patient presents with: Pain, Sinus Headache HPI Andrea Piedra is a 64 year old male who presents here today for Above Complaints.. Patient presents for sinus congestion and cough x 9 days. Reports frontal and maxillary sinus pressure and pain. Past medical history, appointments, medications, allergies reviewed. Previous Medical History PAST MEDICAL HISTORY Diagnosis Date Anticoagulant long-term use Arrhythmia At risk for stroke [id number] = 1 (HTN) Essential hypertension Essential hypertension Generalized anxiety disorder Hemorrhage of gastrointestinal tract, unspecified Hemorrhoids Paroxysmal atrial fibrillation (HCC) Rectal bleeding 09/2021 Sleep apnea does not use cpap. Snoring Previous Surgical History PAST SURGICAL HISTORY Procedure Laterality Date COLONOSCOPY FLX DX W/COLLJ SPEC WHEN PFRMD 07/11/2008 Colonoscopy COLONOSCOPY FLX DX W/COLLJ SPEC WHEN PFRMD 05/26/2018 Colonoscopy ESOPHAGOGASTRODUODENOSCOPY TRANSORAL DIAGNOSTIC 05/26/2018 EGD ESOPHAGOGASTRODUODENOSCOPY TRANSORAL DIAGNOSTIC 04/02/2022 EYE SURGERY HX HEMORRHOID: RUBBERBAND, SINGLE/MULTIPLE 10/04/2021 HEMORRHOID;BAND LIGAT, SNGL/MUL 04/02/2022 HEMORRHOIDECTOMY INTERNAL RUBBER BAND LIGATIONS 05/26/2018 PROCEDURE RM-COLONSCOPY W/BX 04/02/2022 Family History FAMILY HISTORY Problem Relation Age of Onset Heart Mother Valve Replacement COPD Mother other (history of smoking) Mother Hypertension Father Kidney failure Father kidney disease - on dialysis Heart disease Father heart valve problem Hypertension Sister Hyperlipidemia Sister other (sudden ) Brother other (sudden infant ) Brother Thyroid Son Prostate Cancer No Family History none Patient Allergies ALLERGIES Allergen Reactions Vicodin [Hydrocodon* Mental Status Change Current Medications Current Outpatient Medications on File Prior to Visit Medication Sig Fexofenadine-Pseudoephedrine (SHANNAN-D 24 HOUR) 180-240 mg per 24 hr tablet Take 1 tablet by mouth once daily. LORazepam (ATIVAN) 0.5 mg Take 1 tablet by mouth three times a day as needed (anxiety) for up to 90 days. loratadine/pseudoephedrine (CLARITIN-D 24 HOUR ORAL) Take 1 tablet by mouth once daily. benazepril (LOTENSIN) 20 mg tablet Take 1 tablet by mouth two times a day. flecainide (TAMBOCOR) 100 mg tablet Take 100 mg by mouth as needed. dilTIAZem CD (CARDIZEM CD, CARTIA XT) 240 mg 24 hr capsule Take 1 capsule by mouth once daily. aspirin, enteric coated (ECOTRIN LOW STRENGTH) 81 mg EC tablet Take 81 mg by mouth once daily. atorvastatin (LIPITOR) 20 mg tablet Take 1 tablet by mouth once daily. triamcinolone acetonide (NASACORT NASAL) Use in the nose. calcium carbonate (TUMS ORAL) Take 2 tablets by mouth as needed. hydroCHLOROthiazide (HYDRODIURIL, ESIDRIX) 12.5 mg tablet Take 12.5 mg by mouth twice daily. melatonin 3 mg capsules Take 3 mg by mouth at bedtime as needed. potassium chloride (K-TAB) 10 mEq tablet Take 10 mEq by mouth once daily. metoprolol tartrate, short acting, (LOPRESSOR) 100 mg tablet Take 100 mg by mouth twice daily. No current facility-administered medications on file prior to visit. Social History SOCIAL HISTORY[1] Review of Symptoms REVIEW OF SYSTEMS SEE HPI EXAM: BP 127/78 Pulse 78 Temp 36.9 ?C (98.4 ?F) Wt 105 kg (231 lb 7.7 oz) BMI 32.23 kg/m? General Appearance: Well appearing, alert, in no acute distress, well-hydrated, well nourished. Nose/Sinuses: Positive findings: mucosa erythematous and swollen, purulent rhinorrhea. Oropharynx: Lips, mucosa, and tongue normal, teeth and gums normal, oropharynx normal. Neck: Supple, no adenopathy; thyroid symmetric, normal size, no bruits. Health Maintenance List Covid-19 Vaccine( season) due on 02/21/2025 Pneumococcal Vaccine: 50+(1 of 1 - PCV) due on 09/06/2025 DTaP,Tdap,Td Vaccine(2 - Td or Tdap) due on 03/22/2026 Shingrix Vaccine(1 of 2) due on 03/22/2026 Depression Screening due on 09/06/2025 Annual PCP Team Chronic Disease Visit due on 03/22/2026 Prostate Cancer Screening Discussion due on 12/20/2026 Diabetes Screening due on 03/18/2028 Lipid Screening due on 09/02/2029 Colorectal Cancer Screening due on 04/02/2032 RSV Vaccine(1 - 1-dose 75+ series) due on 2036 Influenza Vaccine Completed Hepatitis C Screening Completed HIV Screening Discontinued ASSESSMENT/PLAN: 1. Bacterial sinusitis - ICD9: 473.9, 041.9, ICD10: J32.9, B96.89 - Will begin treatment with Augmentin 875 mg PO BID for 5 days - The patient should also be given OTC decongestants prn, warm salt water gargles, throat lozenges and/or OTC throat spray as needed, and nasal saline gtts and suction prn for the first 5-7 days of t (more content not included)... [facility] 03-22-2025 Note HNO ID: [id number] Author: ALAN WARD MD Service: ? Author Type: Physician Type: Progress Notes Filed: 03/22/2025 17:01 Note Text: The patient is a 64-year-old male with HTN, hyperlipidemia, paroxysmal SVT, prediabetes, and anxiety, presenting for follow-up and routine preventive care. HPI Annual Wellness Exam: - No significant concerns or questions at this time. - No recent falls, memory issues, or unusual headaches. - No changes in rashes or abnormal moles. - No cough, wheezing, or chest pain. - No changes in bowel movements, hematochezia, or melena. - No heartburn, nausea, or emesis. - No urinary issues. - No tremors or shakiness. - No recent episodes of vertigo. - Reports seasonal flu or colds, difficult to differentiate. - Son, Emerson, is 4.5 years old and in preschool. - Considering flu shot; had influenza B last winter. - No issues with COVID vaccinations. Anxiety: - Anxiety well-controlled during summer months. - Considering anxiety medication for winter; currently using lorazepam PRN. SVT: - Occasional episodes of feeling "shaky" with elevated heart rate up to 116 bpm, resolves with deep breathing. - Holter monitor showed two short runs of SVT about a year ago. - Swatch Folder suggested medication (unspecified) to manage SVT, but no significant concern. - No need for anticoagulation; managed with baby aspirin. - No recent episodes of atrial fibrillation. Hyperlipidemia: - Taking Lipitor; no muscle aches or issues reported. Prediabetes: - Recent A1c improved from 6.1% to 5.6% over six months. - Working on diet, eating more fruits like grapes. - No issues with shoulder injections related to A1c levels. MEDICATIONS: Current Outpatient Medications Medication Sig Fexofenadine-Pseudoephedrine (SHANNAN-D 24 HOUR) 180-240 mg per 24 hr tablet Take 1 tablet by mouth once daily. LORazepam (ATIVAN) 0.5 mg Take 1 tablet by mouth three times a day as needed (anxiety) for up to 90 days. loratadine/pseudoephedrine (CLARITIN-D 24 HOUR ORAL) Take 1 tablet by mouth once daily. benazepril (LOTENSIN) 20 mg tablet Take 1 tablet by mouth two times a day. flecainide (TAMBOCOR) 100 mg tablet Take 100 mg by mouth as needed. dilTIAZem CD (CARDIZEM CD, CARTIA XT) 240 mg 24 hr capsule Take 1 capsule by mouth once daily. aspirin, enteric coated (ECOTRIN LOW STRENGTH) 81 mg EC tablet Take 81 mg by mouth once daily. atorvastatin (LIPITOR) 20 mg tablet Take 1 tablet by mouth once daily. triamcinolone acetonide (NASACORT NASAL) Use in the nose. calcium carbonate (TUMS ORAL) Take 2 tablets by mouth as needed. hydroCHLOROthiazide (HYDRODIURIL, ESIDRIX) 12.5 mg tablet Take 12.5 mg by mouth twice daily. melatonin 3 mg capsules Take 3 mg by mouth at bedtime as needed. potassium chloride (K-TAB) 10 mEq tablet Take 10 mEq by mouth once daily. metoprolol tartrate, short acting, (LOPRESSOR) 100 mg tablet Take 100 mg by mouth twice daily. No current facility-administered medications for this visit. ALLERGIES: ALLERGIES Allergen Reactions Vicodin [Hydrocodon* Mental Status Change PAST MEDICAL HISTORY Diagnosis Date Anticoagulant long-term use Arrhythmia At risk for stroke [id number] = 1 (HTN) Essential hypertension Essential hypertension Generalized anxiety disorder Hemorrhage of gastrointestinal tract, unspecified Hemorrhoids Paroxysmal atrial fibrillation (HCC) Rectal bleeding 09/2021 Sleep apnea does not use cpap. Snoring PAST SURGICAL HISTORY Procedure Laterality Date COLONOSCOPY FLX DX W/COLLJ SPEC WHEN PFRMD 07/11/2008 Colonoscopy COLONOSCOPY FLX DX W/COLLJ SPEC WHEN PFRMD 05/26/2018 Colonoscopy ESOPHAGOGASTRODUODENOSCOPY TRANSORAL DIAGNOSTIC 05/26/2018 EGD ESOPHAGOGASTRODUODENOSCOPY TRANSORAL DIAGNOSTIC 04/02/2022 EYE SURGERY HX HEMORRHOID: RUBBERBAND, SINGLE/MULTIPLE 10/04/2021 HEMORRHOID;BAND LIGAT, SNGL/MUL 04/02/2022 HEMORRHOIDECTOMY INTERNAL RUBBER BAND LIGATIONS 05/26/2018 PROCEDURE RM-COLONSCOPY W/BX 04/02/2022 FAMILY HISTORY Problem Relation Age of Onset Heart Mother Valve Replacement COPD Mother other (history of smoking) Mother Hypertension Father Kidney failure Father kidney disease - on dialysis Heart disease Father heart valve problem Hypertension Sister Hyperlipidemia Sister other (sudden infant ) Brother other (sudden infant ) Brother Thyroid Son Prostate Cancer No Family History none SOCIAL HISTORY[1] Reviewed current medications, allergies, past medical history, surgical history, family history and social history today. REVIEW OF SYSTEMS Head: (-) headaches Cardiovascular: (+) palpitations, (+) episodic tachycardia, (-) chest pain Respiratory: (-) cough, (-) wheezing, (-) dyspnea Gastrointestinal: (-) heartburn, (-) nausea, (-) vomiting, (-) hematochezia, (-) melena Genitourinary: (-) urinary symptoms Musculoskeletal: (+) bilateral shoulder (more content not included)... [facility] 02-11-2025 Miscellaneous Notes See pt message and advise. Lashawn Pagan MA documented in this encounter [facility] 02-11-2025 Telephone encounter Note See pt message and advise. Lashawn Pagan MA [facility] 02-08-2025 Note HNO ID: [id number] Author: JOSEPH LOERA APRN.STEAM LOCOMOTIVE FIRER/FIREMAN Service: ? Author Type: Nurse Practitioner Type: Progress Notes Filed: 02/08/2025 14:09 Note Text: Chief Complaint Patient presents with: Headache Head Congestion Pressure In Ear(s) Pain, Sinus HPI Andrea Piedra is a 64 year old male who presents here today for Above Complaints. Patient presents for complaints of sinus pain, ear pressure and headache x 6 days. Reports symptoms are improving and he has been taking tylenol. Past medical history, appointments, medications, allergies reviewed. Previous Medical History PAST MEDICAL HISTORY Diagnosis Date Anticoagulant long-term use Arrhythmia At risk for stroke [id number] = 1 (HTN) Essential hypertension Essential hypertension Generalized anxiety disorder Hemorrhage of gastrointestinal tract, unspecified Hemorrhoids Paroxysmal atrial fibrillation (HCC) Rectal bleeding 09/2021 Sleep apnea does not use cpap. Snoring Previous Surgical History PAST SURGICAL HISTORY Procedure Laterality Date COLONOSCOPY FLX DX W/COLLJ SPEC WHEN PFRMD 07/11/2008 Colonoscopy COLONOSCOPY FLX DX W/COLLJ SPEC WHEN PFRMD 05/26/2018 Colonoscopy ESOPHAGOGASTRODUODENOSCOPY TRANSORAL DIAGNOSTIC 05/26/2018 EGD ESOPHAGOGASTRODUODENOSCOPY TRANSORAL DIAGNOSTIC 04/02/2022 EYE SURGERY HX HEMORRHOID: RUBBERBAND, SINGLE/MULTIPLE 10/04/2021 HEMORRHOID;BAND LIGAT, SNGL/MUL 04/02/2022 HEMORRHOIDECTOMY INTERNAL RUBBER BAND LIGATIONS 05/26/2018 PROCEDURE RM-COLONSCOPY W/BX 04/02/2022 Family History FAMILY HISTORY Problem Relation Age of Onset Heart Mother Valve Replacement COPD Mother other (history of smoking) Mother Hypertension Father Kidney failure Father kidney disease - on dialysis Heart disease Father heart valve problem Hypertension Sister Hyperlipidemia Sister other (sudden infant ) Brother other (sudden ) Brother Thyroid Son Prostate Cancer No Family History none Patient Allergies ALLERGIES Allergen Reactions Vicodin [Hydrocodon* Mental Status Change Current Medications Current Outpatient Medications on File Prior to Visit Medication Sig LORazepam (ATIVAN) 0.5 mg Take 1 tablet by mouth three times a day as needed (anxiety) for up to 90 days. loratadine/pseudoephedrine (CLARITIN-D 24 HOUR ORAL) Take 1 tablet by mouth once daily. benazepril (LOTENSIN) 20 mg tablet Take 1 tablet by mouth two times a day. nystatin (MYCOSTATIN) 100,000 unit/mL suspension Take 5 mL by mouth four times daily. 1tsp swish in mouth for several minutes, then swallow (or expectorate) 4 times daily until gone. (Patient not taking: Reported on 09/13/2024) flecainide (TAMBOCOR) 100 mg tablet Take 100 mg by mouth as needed. dilTIAZem CD (CARDIZEM CD, CARTIA XT) 240 mg 24 hr capsule Take 1 capsule by mouth once daily. aspirin, enteric coated (ECOTRIN LOW STRENGTH) 81 mg EC tablet Take 81 mg by mouth once daily. atorvastatin (LIPITOR) 20 mg tablet Take 1 tablet by mouth once daily. triamcinolone acetonide (NASACORT NASAL) Use in the nose. fexofenadine (SHANNAN) 180 mg tablet Take 180 mg by mouth once daily. (Patient not taking: Reported on 09/13/2024) calcium carbonate (TUMS ORAL) Take 2 tablets by mouth as needed. hydroCHLOROthiazide (HYDRODIURIL, ESIDRIX) 12.5 mg tablet Take 12.5 mg by mouth twice daily. melatonin 3 mg capsules Take 3 mg by mouth at bedtime as needed. potassium chloride (K-TAB) 10 mEq tablet Take 10 mEq by mouth once daily. metoprolol tartrate, short acting, (LOPRESSOR) 100 mg tablet Take 100 mg by mouth twice daily. No current facility-administered medications on file prior to visit. Social History SOCIAL HISTORY[1] Review of Symptoms REVIEW OF SYSTEMS SEE HPI EXAM: BP 142/81 Pulse 69 Wt 106 kg (233 lb 11 oz) BMI 33.53 kg/m? General Appearance: Well appearing, alert, in no acute distress, well-hydrated, well nourished.. Ears: Positive findings: R TM: bulging, L TM: bulging. Nose/Sinuses: Positive findings: mucosa erythematous and swollen, clear rhinorrhea. Oropharynx: Positive findings: mild oropharyngeal erythema. Neck: Supple, no adenopathy; thyroid symmetric, normal size, no bruits. Health Maintenance List Shingrix Vaccine(1 of 2) Never done DTaP,Tdap,Td Vaccine(2 - Td or Tdap) due on 12/02/2018 Pneumococcal Vaccine: 50+(1 of 1 - PCV) due on 09/06/2025 Influenza Vaccine(1) due on 02/21/2025 Depression Screening due on 09/06/2025 Annual PCP Team Chronic Disease Visit due on 10/18/2025 Prostate Cancer Screening Discussion due on 12/20/2026 Diabetes Screening due on 09/03/2027 Lipid Screening due on 09/02/2029 Colorectal Cancer Screening due on 04/02/2032 RSV Vaccine(1 - 1-dose 75+ series) due on 2036 Hepatitis C Screening Completed HIV Screening Discontinued ASSESSMENT/PLAN: 1. Eustachian tube dysfunction, bilateral - ICD9: 381.81, ICD10: H69.93 (primary di (more content not included)... [facility] 02-08-2025 History of Presen t illness Narrative Chief Complaint Patient presents with: Headache Head Congestion Pressure In Ear(s) Pain, Sinus HPI Andrea Piedra is a 64 year old male who presents here today for Above Complaints. Patient presents for complaints of sinus pain, ear pressure and headache x 6 days. Reports symptoms are improving and he has been taking tylenol. Past medical history, appointments, medications, allergies reviewed. Previous Medical History PAST MEDICAL HISTORY Diagnosis Date Anticoagulant long-term use Arrhythmia At risk for stroke [id number] = 1 (HTN) Essential hypertension Essential hypertension Generalized anxiety disorder Hemorrhage of gastrointestinal tract, unspecified Hemorrhoids Paroxysmal atrial fibrillation (HCC) Rectal bleeding 09/2021 Sleep apnea does not use cpap. Snoring Previous Surgical History PAST SURGICAL HISTORY Procedure Laterality Date COLONOSCOPY FLX DX W/COLLJ SPEC WHEN PFRMD 07/11/2008 Colonoscopy COLONOSCOPY FLX DX W/COLLJ SPEC WHEN PFRMD 05/26/2018 Colonoscopy ESOPHAGOGASTRODUODENOSCOPY TRANSORAL DIAGNOSTIC 05/26/2018 EGD ESOPHAGOGASTRODUODENOSCOPY TRANSORAL DIAGNOSTIC 04/02/2022 EYE SURGERY HX HEMORRHOID: RUBBERBAND, SINGLE/MULTIPLE 10/04/2021 HEMORRHOID;BAND LIGAT, SNGL/MUL 04/02/2022 HEMORRHOIDECTOMY INTERNAL RUBBER BAND LIGATIONS 05/26/2018 PROCEDURE RM-COLONSCOPY W/BX 04/02/2022 Family History FAMILY HISTORY Problem Relation Age of Onset Heart Mother Valve Replacement COPD Mother other (history of smoking) Mother Hypertension Father Kidney failure Father kidney disease - on dialysis Heart disease Father heart valve problem Hypertension Sister Hyperlipidemia Sister other (sudden ) Brother other (sudden infant ) Brother Thyroid Son Prostate Cancer No Family History none Patient Allergies ALLERGIES Allergen Reactions Vicodin [Hydrocodon* Mental Status Change Current Medications Current Outpatient Medications on File Prior to Visit Medication Sig LORazepam (ATIVAN) 0.5 mg Take 1 tablet by mouth three times a day as needed (anxiety) for up to 90 days. loratadine/pseudoephedrine (CLARITIN-D 24 HOUR ORAL) Take 1 tablet by mouth once daily. benazepril (LOTENSIN) 20 mg tablet Take 1 tablet by mouth two times a day. nystatin (MYCOSTATIN) 100,000 unit/mL suspension Take 5 mL by mouth four times daily. 1tsp swish in mouth for several minutes, then swallow (or expectorate) 4 times daily until gone. (Patient not taking: Reported on 09/13/2024) flecainide (TAMBOCOR) 100 mg tablet Take 100 mg by mouth as needed. dilTIAZem CD (CARDIZEM CD, CARTIA XT) 240 mg 24 hr capsule Take 1 capsule by mouth once daily. aspirin, enteric coated (ECOTRIN LOW STRENGTH) 81 mg EC tablet Take 81 mg by mouth once daily. atorvastatin (LIPITOR) 20 mg tablet Take 1 tablet by mouth once daily. triamcinolone acetonide (NASACORT NASAL) Use in the nose. fexofenadine (SHANNAN) 180 mg tablet Take 180 mg by mouth once daily. (Patient not taking: Reported on 09/13/2024) calcium carbonate (TUMS ORAL) Take 2 tablets by mouth as needed. hydroCHLOROthiazide (HYDRODIURIL, ESIDRIX) 12.5 mg tablet Take 12.5 mg by mouth twice daily. melatonin 3 mg capsules Take 3 mg by mouth at bedtime as needed. potassium chloride (K-TAB) 10 mEq tablet Take 10 mEq by mouth once daily. metoprolol tartrate, short acting, (LOPRESSOR) 100 mg tablet Take 100 mg by mouth twice daily. No current facility-administered medications on file prior to visit. Social History SOCIAL HISTORY[1] Review of Symptoms REVIEW OF SYSTEMS SEE HPI EXAM: BP 142/81 Pulse 69 Wt 106 kg (233 lb 11 oz) BMI 33.53 kg/m General Appearance: Well appearing, alert, in no acute distress, well-hydrated, well nourished.. Ears: Positive findings: R TM: bulging, L TM: bulging. Nose/Sinuses: Positive findings: mucosa erythematous and swollen, clear rhinorrhea. Oropharynx: Positive findings: mild oropharyngeal erythema. Neck: Supple, no adenopathy; thyroid symmetric, normal size, no bruits. Health Maintenance List Shingrix Vaccine(1 of 2) Never done DTaP,Tdap,Td Vaccine(2 - Td or Tdap) due on 12/02/2018 Pneumococcal Vaccine: 50+(1 of 1 - PCV) due on 09/06/2025 Influenza Vaccine(1) due on 02/21/2025 Depression Screening due on 09/06/2025 Annual PCP Team Chronic Disease Visit due on 10/18/2025 Prostate Cancer Screening Discussion due on 12/20/2026 Diabetes Screening due on 09/03/2027 Lipid Screening due on 09/02/2029 Colorectal Cancer Screening due on 04/02/2032 RSV Vaccine(1 - 1-dose 75+ series) due on 2036 Hepatitis C Screening Completed HIV Screening Discontinued ASSESSMENT/PLAN: 1. Eustachian tube dysfunction, bilateral - ICD9: 381.81, ICD10: H69.93 (primary diagnosis) -Restart nasacort daily x5 days. Rinse mouth out with water after each use. 2. Viral sinusitis - ICD9: 473.9, 079.99, ICD10: J32.9, B97.89 - Discussed viral etiology and rationale for treatment. - Symptomatic treatment with prn analgesia - Supportive care with fluids and rest - The patient should also be given nasal saline gtts for the first 5-7 days of treatment. - Supportive care with plenty of fluids, rest, and analgesia prn. - Follow up in 3-5 days if symptoms persist or worsen. If symptoms persist on Friday patient to notify me and I will send in antibiotics. Joseph Loera APRN.STEAM LOCOMOTIVE FIRER/FIREMAN [1] Social History Tobacco Use Smoking status: Never Smokeless tobacco: Never Vaping Use Vaping status: Never Used Substance Use Topics Alcohol use: Yes Comment: very occasional Drug use: No documented in this encounter [facility] 01-18-2025 Telephone encounter Note The patient has been identified by name and date of : Yes Caregiver verified no other encounters exist for this prescription request: Yes Caregiver confirmed with patient/requestor that no other refills are due, in the near future, with this provider at this time: No The last office visit in the department: 10/18/2024 Does the patient have a future office visit with this provider/department: Yes 03/22/2025 Requested Prescriptions Pending Prescriptions Disp Refills LORazepam (ATIVAN) 0.5 mg 90 tablet 1 Sig: Take 1 tablet by mouth three times a day as needed (anxiety) for up to 90 days. Ativan last refilled #90 with 1 refill on 08/30/24 Katelynn Somers MA January 18, 2025 9:36 AM [facility] 01-18-2025 Miscellaneous Notes The patient has been identified by name and date of : Yes Caregiver verified no other encounters exist for this prescription request: Yes Caregiver confirmed with patient/requestor that no other refills are due, in the near future, with this provider at this time: No The last office visit in the department: 10/18/2024 Does the patient have a future office visit with this provider/department: Yes 03/22/2025 Requested Prescriptions Pending Prescriptions Disp Refills LORazepam (ATIVAN) 0.5 mg 90 tablet 1 Sig: Take 1 tablet by mouth three times a day as needed (anxiety) for up to 90 days. Ativan last refilled #90 with 1 refill on 08/30/24 Katelynn Somers MA January 18, 2025 9:36 AM Prescription Refill Information The patient has been identified by name and date of : Yes Caregiver verified no other encounters exist for this prescription request: Yes Caregiver confirmed with patient/requestor that no other refills are due, in the near future, with this provider at this time: Yes The last office visit in the department: 10-18-24 Does the patient have a future office visit with this provider/department: Yes Disp Refills Start End LORazepam (ATIVAN) 0.5 mg (Discontinued) 90 tablet 1 06/11/2024 08/29/2024 Sig: Take 1 tablet by mouth three times a day as needed (anxiety) for up to 90 days. Sent to pharmacy as: LORazepam (ATIVAN) 0.5 mg Class: Normal Route: ORAL Pharmacy has been updated in chart [facility] # [id number] Dayanna Donaldson January 18, 2025 8:57 AM documented in this encounter [facility] 01-18-2025 Telephone encounter Note Prescription Refill Information The patient has been identified by name and date of : Yes Caregiver verified no other encounters exist for this prescription request: Yes Caregiver confirmed with patient/requestor that no other refills are due, in the near future, with this provider at this time: Yes The last office visit in the department: 10-18-24 Does the patient have a future office visit with this provider/department: Yes Disp Refills Start End LORazepam (ATIVAN) 0.5 mg (Discontinued) 90 tablet 1 06/11/2024 08/29/2024 Sig: Take 1 tablet by mouth three times a day as needed (anxiety) for up to 90 days. Sent to pharmacy as: LORazepam (ATIVAN) 0.5 mg Class: Normal Route: ORAL Pharmacy has been updated in chart [facility] # [id number] Dayanna Donaldson January 18, 2025 8:57 AM [facility] Work Phone: 01-14-2025 History of Presen t illness Narrative Radiology Service Progress Note DATE OF SERVICE: January 14, 2025 TIME: 7:47 AM PATIENT IDENTITY VERIFICATION COMPLETED USING TWO (2) STANDARD IDENTIFIERS: Name and Date of confirmed by patient verbally. FALL SCREENING: Has the patient had 2 falls in the last year or 1 fall with injury or currently using an Ambulatory Assistive Device (Walker, Cane, Wheelchair, Crutches, etc.)? No PATIENT GENDER DATA: Assigned male at PATIENT RELEVANT IMPLANT DATA REVIEWED: Yes PATIENT PRESENTS WITH AN IMPLANTABLE OR ATTACHED CASTING OPERATOR: No ALLERGIES: Reviewed and updated CONTRAST ALLERGY: NO. EXAM: MRI - CONTRAST TYPE: GROUP II PERIPHERAL IV DATA: Ambulatory: A peripheral IV was started in the Left upper extremity with a Angio cath: 22 gauge. RADIOLOGY DEPARTMENT: MR; Exam(s) Completed: Lower MSK: Ankle/Hind Foot, left. Aromatherapy Administered: No SIGNATURE: RT Santosh(Sophie) PATIENT NAME: Andrea Piedra DATE: January 14, 2025 TIME: 7:47 AM documented in this encounter [facility] 01-14-2025 Note HNO ID: [id number] Author: KAMILLA THOMAS RT (R) Service: ? Author Type: Technologist Type: Progress Notes Filed: 01/14/2025 07:47 Note Text: Radiology Service Progress Note DATE OF SERVICE: January 14, 2025 TIME: 7:47 AM PATIENT IDENTITY VERIFICATION COMPLETED USING TWO (2) STANDARD IDENTIFIERS: Name and Date of confirmed by patient verbally. FALL SCREENING: Has the patient had 2 falls in the last year or 1 fall with injury or currently using an Ambulatory Assistive Device (Walker, Cane, Wheelchair, Crutches, etc.)? No PATIENT GENDER DATA: Assigned male at PATIENT RELEVANT IMPLANT DATA REVIEWED: Yes PATIENT PRESENTS WITH AN IMPLANTABLE OR ATTACHED CASTING OPERATOR: No ALLERGIES: Reviewed and updated CONTRAST ALLERGY: NO. EXAM: MRI - CONTRAST TYPE: GROUP II PERIPHERAL IV DATA: Ambulatory: A peripheral IV was started in the Left upper extremity with a Angio cath: 22 gauge. RADIOLOGY DEPARTMENT: MR; Exam(s) Completed: Lower MSK: Ankle/Hind Foot, left. Aromatherapy Administered: No SIGNATURE: RT Santosh(Sophie) PATIENT NAME: Andrea Piedra DATE: January 14, 2025 TIME: 7:47 AM [facility] 01-11-2025 Progress note [facility] 01-11-2025 Progress note Note Date/Time January 11, 2025 8:45am [facility] [address] [place] [address] OFFICE VISIT Date of Service: 01/11/25 MR#: [id number] Acct: [id number] Name: ANDREA PIEDRA Rep #: [id number] : 1960 Provider: ALAN Guerrier Age/Sex: 64/M Location: [facility] [place] Status: Signed HPI HPI History of Present Illness Details: This is a 64-year-old white male who presents today for an outpatient cardiovascular visit. He has a history of paroxysmal atrial fibrillation, hyperlipidemia, and hypertension. 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 Monson previously. He denies chest, arm, jaw, or neck discomfort. He states occasional palpitations that he describes as skipping and fluttering. He denies bilateral lower extremity edema. He denies claudication. He denies shortness of breath with activity, shortness of breath at rest, orthopnea, or PND. He denies chronic cough. He denies significant, sudden weight gain. He denies lightheadedness, dizziness, near-syncope, or syncope. He denies blood in urine,blood in stool, or epistaxis. He denies fever with chills. He denies myalgia. He denies fatigue. His exercise level has remained stable. Intake Vital Signs 06/29/24 09:17 01/11/25 08:09 Height 5 ft 11 in 5 ft 11 in Weight: 239 lb 234 lb BMI 33.3 32.6 BP 121/76 H 134/86 H Blood Pressure Location Lt brachial Lt brachial Position Sitting Sitting Respiration 18 16 Pulse 52 L 57 L Pulse Source Monitor NIBP Temp 97.4 F L Temperature Source Temporal Artery Pulse Oximetry (%) 95 Oxygen Delivery Method room air Intake Visit Reasons: 6 M FU Family Support Coordinator Required: No Is patient in pain?: No Allergies hydrocodone (From Vicodin) Adverse Reaction (Verified 01/11/25 08:09) Other Medications ?Medication ?Instructions ?Recorded ?Confirmed ?Type melatonin 3 mg capsule 3 mg PO HS 03/29/19 01/11/25 History lorazepam 0.5 mg tablet 0.5 mg PO QHS PRN Anxiety 01/11/25 History benazepril 20 mg tablet 20 mg PO BID #180 tabs 06/2601/11/25 Rx calcium carbonate (Tums) 200 mg PO ONCE PRN 05/24/24 01/11/25 History triamcinolone acetonide 55 mcg 2 spray intranasal QDAY PRN 05/24/24 01/11/25 History nasal spray aerosol (Nasacort) aspirin 81 mg chewable tablet 81 mg PO DAILY #90 tabs 07/05/24 01/11/25 Rx atorvastatin 20 mg tablet 20 mg PO QHS #90 tabs 01/11/25 Rx diltiazem HCl 240 mg 240 mg PO QDAY #90 caps 06/2301/11/25 Rx capsule,extended release 24 hr flecainide 100 mg tablet 100 mg PO ONCE PRN atrial 01/11/25 Rx fibrillation #7 tabs hydrochlorothiazide 12.5 mg tablet 12.5 mg PO QAM #90 tabs 07/05/24 01/11/25 Rx metoprolol tartrate 100 mg tablet 100 mg PO BID #180 t abs 07/05/24 01/11/25 Rx potassium chloride 10 mEq 10 meq PO QDAY #90 tabs 06/2301/11/25 Rx tablet,extended release loratadine 10 mg tablet (Claritin) 10 mg PO QDAY 01/1101/11/25 History Ejection fraction %: 70 Have you fallen in the past year?: No PFSH Medical History Palpitations RAMSEY (obstructive sleep apnea) Bronchitis Hypersomnia Pure hypercholesterolemia Essential (primary) hypertension Paroxysmal atrial fibrillation New-onset atrial fibrillation with RVR Atrial fibrillation Surgical History History of cataract extraction Family History Mother Heart disease valve replacement Father Hypertension Kidney disease Heart disease valve problems Social History household members: spouse housing: house current occupational status: employed current occupation: [employer] [address] [place] [address] pets and animals: Yes pets and animals: dog(s) Smoking Status: Never smoker second hand exposure: No alcohol intake: current alcohol intake frequency: holidays/special occasions only Alcohol type: beer and wine substance use type: does not use caffeine: Yes Type: coffee Number of servings: 1 ROS Const Const: Negative for fatigue or weakness Eyes Eyes: Negative for change in vision ENT ENT: Negative for dizziness or balance problems Cardio Chest Pain: No Palpitations: Yes (Occasionally) feels like its: skipping and other (Fluttering) Edema: None Muscle aches with walking: None Resp Respiratory: Negative for SOB with activity, SOB at rest or SOB orthopnea\\SOB lying down GI GI: Negative nausea or heartburn : Negative for hematuria or frequent nighttime urination/ nocturia Musc Musc: Negative for balance problems Skin Skin: Negative non-healing lesions or rash Neuro Neuro: Negative for dizziness, lightheadedness, near syncope, syncope or weakness Endo Endo: Negative for fatigue Allergy Allergy/Immunology: Negative for rash Cardiology Exam Const Appearance: cooperative, healthy appearing, comfortable and no acute distress Nutritional Appearance: well nourished and obese Orientation: alert, awake and oriented x3 Head Head: normal to inspection Ears: hearing grossly normal bilaterally Nose: external nose normal Face and Sinus: face symmetric Mouth: moist mucous membranes Eyes General: appearance normal, both eyes and all related structures Eyelids: eyelids normal EOM: EOM intact bilaterally Neck Neck: normal visual inspection and no JVD Carotids: normal carotid upstroke Chest Chest inspection: normal inspection of the chest, symmetric chest movement and normal respiratory effort; Negative cough Auscultation: Bilateral: Clear to Auscultation Cardio Rate: regular rate Rhythm: regular rhythm Heart sounds: S1 normal and S2 normal; Negative rub, gallop or murmur GI GI: normal to inspection and obese Neuro General: patient alert, patient awake, patient oriented x3 and CN's II-XI intactbilaterally Skin Skin: no rashes or lesions noted Extremities Pulses: Normal: Right Posterior Tibial Pulse, Left Posterior Tibial Pulse, RightRadial Pulse and Left Radial Pulse Lower Extremity Edema: None: Bilateral Psych Psychological: normal affect Supplemental Info Supplemental Information Echocardiogram 07/06/2021 Interpretation Summary Left ventricular systolic function is normal. The estimated ejection fraction is 70 %. Trivial mitral valve insufficiency. Trivial tricuspid valve insufficiency. Mild focal aortic valve calcification. Right ventricular systolic pressure estimated to be 26 mmHg. No evidence for diastolic dysfunction. Stress Test 09/03/2021 Impression: 1.? Technically adequate (percent predicted maximal heart rate greater than 85%)exercise tolerance test 2.? Peak exercise ECG with somatic/motion artifact with no obvious ECG changes 3.? There was an isolated ventricular couplet during exercise and notation of the development of atrial fibrillation with rapid ventricular response during recovery with an occasional PVC and an isolated ventricular couplet with subsequent slowing of the ventricular rate in recovery and status post IV metoprolol 5 mg x 1 4.? Nuclear images pending Impression: 1.? Rest and stress SPECT Cardiolite nuclear imaging demonstrate relative uniform tracer uptake and myocardial perfusion appearing within normal limits. 2.? The gated Cardiolite study reports an LVEF of 73%. Holter Monitor 06/12/2020 Interpretation This is a 24 hour holter monitor in normal sinus rhythm. Minimum heart rate was 47 BPM at 12:28:22 AM, no activity or symptom recorded. Maximum heart rate was 100 BPM at 6:40:09 PM, patient reported taking a brisk walk. Average heart rate noted to be 62 BPM. Rare premature atrial complexes. No runs noted. Rare premature ventricular complexes. 1 ventricular couplet. No runs noted. The patient kept a 24 hour diary and noted slight palpitations twice which correlated with ectopy one time. Assessment and Plan Assessment and Plan (1) Paroxysmal atrial fibrillation: Status: Chronic Plan: Event monitor in January 2024 showed an average heart of 58 bpm. No atrial fibrillation noted. His [id number] score is 1. On account of his score, he iscurrently being treated with aspirin alone. If his [id number] score increases, will consider anticoagulation. He does have a history of previous hemorrhoid related bleeding issues. He will continue metoprolol and diltiazem for rate control. He will utilize flecainide on a as needed basis. If he continues to have ectopy or short runs of elevated heart rate, will consider adding flecainide on a chronic basis at 100 mg p.o. twice daily. Holter monitor in December 2023 showed 2 runs of SVT. He will repeat his echocardiogram to ensure EF is stable and reassess atrial size. (2) Essential (primary) hypertension: Status: Chronic Plan: Patient's blood pressure is well-controlled. We will continue to monitor. We will not make any medication regimen changes. (3) Pure hypercholesterolemia: Status: Chronic Plan: This is managed by PCP. He will continue atorvastatin 20mg PO daily. He state recent LDL was 64. Orders: Orders Echo Complete 3 Months E78.00 - Pure hypercholesterolemia, unspecified, I10 - Essential (primary) hypertension, I48.0 - Paroxysmal atrial fibrillation Plan Details Additional Comments: Thank you for allowing us to participate in the patients plan of care, if you have any questions please do not hesitate to call. Plan was reviewed with patient/family member along with red flag symptoms. Understanding was acknowledged. Questions were answered to apparent satisfaction. This note was generated using a voice recognition system and there may be incorrect words, spelling or punctuation that were not noted when reviewing the office note prior to saving. Portions of this documentation were copied and pasted from previous office visitnotes to provide a cohesive continuity of the history. The note has been reviewed, edited, and updated, as necessary. Follow Up: 12 Months () Coding Level of Care Code Off vis,est,level 4 Diagnoses Paroxysmal atrial fibrillation I48.0 Essential (primary) hypertension I10 Pure hypercholesterolemia E78.00 Coding Level of Care Code Off vis,est,level 4 Diagnoses Paroxysmal atrial fibrillation I48.0 Essential (primary) hypertension I10 Pure hypercholesterolemia E78.00 Clinical Quality Measures Falls Risk Screening/Assistive Devices Have you fallen in the past year?: No Cardiac Ejection fraction %: 70 01/11/25 0845 <Electronically signed by Gerardo PHILLIPS> Date _ Gerardo Guerrier NP [employer] Cosigner Signature: Date (if applicable) CC: Dr. Alan Ward MD ~ [employer] [employer] Work Phone: 1(347) 812-723007-21-2025 Telephone encounter Note* Telephone Encounter - Stacy Roman LPN - 01/10/2025 11:42 AM EDT [employer] calling in with authorization for MRI lower extremity. Auth # [id number] dates 01/07/25-02/05/25. Stacy Roman LPN [facility]07-21-2025 Miscellaneous Notes* Telephone Encounter - Stacy Roman LPN - 01/10/2025 11:42 AM EDT Justin calling in with authorization for MRI lower extremity. Auth # [id number] dates 01/07/25-02/05/25. Stacy Roman LPN documented [facility] [place] NoteHNO ID: [id number] Author: JOHN ORNELAS, PT Service: ? Author Type: Physical Therapist Type: Progress Notes Filed: 01/03/2025 11:09 Note Text: Episode Visit Count: 8 Therapist That Will Accept/Oversee The Plan Of Care: John Ornelas Start of Care Date: 10/25/24 Onset Date: 06/23/24 Plan of Care Certification Date: 12/20/22 Next Certification Due Date: 01/24/23 REHABILITATION AND SPORTS THERAPY PHYSICAL THERAPY DISCONTINUANCE OF CARE PLAN OF CARE UPDATE: Assessment: Andrea Piedra is discontinued from Physical Therapy services due to maximal benefit.. Patient was seen for 8 visits from Start of Care Date: 10/25/24 to 01/03/2025 and treatment included: Therapeutic exercise, Manual therapy, and Self-longterm management. Goals updated on 01/03/2025. Goals for Episode of Care: established 10/25/24 Rush in home exercise program. Met Patient will decrease pain rating by 2 points to meet minimal clinical important difference for numeric pain rating scale. Met shoulders, not met heel Patient will increase active ROM of R shoulder to WNL to allow pt to to improve performance of ADLs. Improved but not met Patient will demonstrate increase in R shoulder ER strength to 4+/5 during manual muscle testing in order to improve function for basic self-care tasks, home management tasks, leisure / recreation skills, moderate to heavy functional tasks, and prior functional tasks. Met Perform reaching, lifting, and walking with decreased report of symptoms/pain in 4-6 weeks. Improved reaching, lifting, not walking. Perform self care and ADLs without pain. Partially met SUBJECTIVE: Patient notes that he is feeling about the same. Shoulders are better but hit a plateau. Reaching up, out, behind his back, and any motion rotating in/across body can produce the sharp pain. Pain: Pain Pain Level 2: 4 Pain Location 2: Shoulder - Right Description 2: Sharp Frequency 2: Intermittent PROMIS Scales 01/03/2025 12/02/2024 10/25/2024 Higher is Better Phys Func - T Score 41 (mild dysfunction) 40 (mild dysfunction) 42 (mild dysfunction) Phys Func - Percentile 18 16 21 Self-Eff Symptom - T Score 41 (Average) 42 (Average) 41 (Average) Self-Eff Symptom - Percentile 18 21 18 Proxy-reported T-scores: mean of general population = 50. 5 points is clinically meaningfully difference Percentiles provide an indication of how the patient's score ranks in relation to the general population. Higher percentile rankings indicate better function/quality of life. 50th percentile is the average of the general population and indicates half of respondents had a worse score. OBJECTIVE MEASURES WITH LEVEL OF FUNCTION: UE AROM R UE AROM: Minimal limitation and pain/catching with abduction, functional IR L UE AROM: WFL UE and Cervical Strength R Shoulder Flexion: 4+/5 R Shoulder Abduction (C5): 4+/5 R Shoulder Internal Rotation: 5/5 R Shoulder External Rotation: 4/5 L Shoulder Flexion: 4+/5 L Shoulder Abduction (C5): 4+/5 L Shoulder Internal Rotation: 5/5 L Shoulder External Rotation: 4+/5 TREATMENT: Therapeutic Exercise: 1: Objective measures obtained 2: Reviewed HEP and discussed progressions/proper follow through Skilled Intervention: Patient was educated in proper exercise technique and purpose for exercises. Skilled judgment was used in selection of appropriate interventions. Provided written instruction for home exercise program to facilitate proper performance and compliance. Correct performance of therapeutic exercises was facilitated with verbal and visual cuing. Billing Therapeutic Exercise Treatment Minutes: 25 Skilled Treatment Time Minutes (timed and untimed codes): 25 Total Session Time (minutes): 25 Session Start Time : 0950 Session Stop Time : 1015 John Onrelas [place] [id number] History of Present illness Narrative* John Ornelas, PT - 01/03/2025 10:57 AM EDT Images from the original note were not included. Episode Visit Count: 8 Therapist That Will Accept/Oversee The Plan Of Care: John Ornelas Start of Care Date: 10/25/24 Onset Date: 06/23/24 Plan of Care Certification Date: 12/20/22 Next Certification Due Date: 01/24/23 REHABILITATION AND SPORTS THERAPY PHYSICAL THERAPY DISCONTINUANCE OF CARE PLAN OF CARE UPDATE: Assessment: Andrea Piedra is discontinued from Physical Therapy services due to maximal benefit.. Patient was seen for 8 visits from Start of Care Date: 10/25/24 to 01/03/2025 and treatment included:Therapeutic exercise, Manual therapy, and Self-longterm management. Goals updated on 01/03/2025. Goals for Episode of Care: established 10/25/24 Rush in home exercise program. Met Patient will decrease pain rating by 2 points to meet minimal clinical important difference for numeric pain rating scale. Met shoulders, not met heel Patient will increase active ROM of R shoulder to WNL to allow pt to to improve performance of ADLs. Improved but not met Patient will demonstrate increase in R shoulder ER strength to 4+/5 during manual muscle testing in order to improve function for basic self-care tasks, home management tasks, leisure / recreation skills, moderate to heavy functional tasks, and prior functional tasks. Met Perform reaching, lifting, and walking with decreased report of symptoms/pain in 4-6 weeks. Improved reaching, lifting, not walking. Perform self care and ADLs without pain. Partially met SUBJECTIVE: Patient notes that he is feeling about the same. Shoulders are better but hit a plateau. Reaching up, out, behind his back, and any motion rotating in/across body can produce the sharp pain. Pain: Pain Pain Level 2: 4 Pain Location 2: Shoulder - Right Description 2: Sharp Frequency 2: Intermittent PROMIS Scales 01/03/2025 12/02/2024 10/25/2024 Higher is Better Phys Func - T Score 41 (mild dysfunction) 40 (mild dysfunction) 42 (mild dysfunction) Phys Func - Percentile 18 16 21 Self-Eff Symptom - T Score 41 (Average) 42 (Average) 41 (Average) Self-Eff Symptom - Percentile 18 21 18 Proxy-reported T-scores: mean of general population = 50. 5 points is clinically meaningfully difference Percentiles provide an indication of how the patient's score ranks in relation to the general population. Higher percentile rankings indicate better function/quality of life. 50th percentile is the average of the general population and indicates half of respondents had a worse score. OBJECTIVE MEASURES WITH LEVEL OF FUNCTION: UE AROM R UE AROM: Minimal limitation and pain/catching with abduction, functional IR L UE AROM: WFL UE and Cervical Strength R Shoulder Flexion: 4+/5 R Shoulder Abduction (C5): 4+/5 R Shoulder Internal Rotation: 5/5 R Shoulder External Rotation: 4/5 L Shoulder Flexion: 4+/5 L Shoulder Abduction (C5): 4+/5 L Shoulder Internal Rotation: 5/5 L Shoulder External Rotation: 4+/5 TREATMENT: Therapeutic Exercise: 1: Objective measures obtained 2: Reviewed HEP and discussed progressions/proper follow through Skilled Intervention: Patient was educated in proper exercise technique and purpose for exercises. Skilled judgment was used in selection of appropriate interventions. Provided written instruction for home exercise program to facilitate proper performance and compliance. Correct performance of therapeutic exercises was facilitated with verbal and visual cuing. Billing Therapeutic Exercise Treatment Minutes: 25 Skilled Treatment Time Minutes (timed and untimed codes): 25 Total Session Time (minutes): 25 Session Start Time : 0950 Session Stop Time : 1015 John Ornelas PT [facility] [place] History of Present illness Narrative* Pushpa Williamson PTA - 12/27/2024 9:54 AM EDT Program_ID:[id number] Access Code: [email or web address] URL: [email or web address] Date: 12-27-2024 Prepared By: John Ornelas Program Notes Exercises - Seated Shoulder Flexion AAROM with Joseph Behind - 1 x daily - 7 x weekly - 3 sets - 10 reps - Standing Shoulder External Rotation AAROM with Dowel - 1 x daily - 7 x weekly - 3 sets - 10 reps - Standing Shoulder Scaption - 1 x daily - 7 x weekly - 3 sets - 10 reps - Sidelying Shoulder External Rotation - 1 x daily - 7 x weekly - 3 sets - 10 reps - Standing Isometric Shoulder Internal Rotation at Doorway - 1 x daily - 7 x weekly - 2 sets - 5 reps - Standing Isometric Shoulder External Rotation with Doorway - 1 x daily - 7 x weekly - 2 sets - 5 reps - Standing Isometric Shoulder Flexion with Doorway - Arm Bent - 1 x daily - 7 x weekly - 2 sets - 5 reps - Standing Isometric Shoulder Abduction with Doorway - Arm Bent - 1 x daily - 7 x weekly - 2 sets - 5 reps * John Ornelas, PT - 12/27/2024 9:33 AM EDT Episode Visit Count: 7 Therapist That Will Accept/Oversee The Plan Of Care: John Ornelas Start of Care Date: 10/25/24 Onset Date: 06/23/24 Plan of Care Certification Date: 12/20/22 Next Certification Due Date: 01/24/23 Patient Identified by Name and Date of : Yes REHABILITATION AND SPORTS THERAPY PHYSICAL THERAPY TREATMENT NOTE ASSESSMENT: Andrea Piedra tolerated the session with fatigue and expected muscle soreness. He demonstrated improvements in tolerance to isometrics. The patient will continue to benefit from ongoing skilled physical therapy to progress toward set goals. PLAN FOR NEXT VISIT: PN. Asses response to isometrics for home SUBJECTIVE: Pt states that his shoulder is holding steady. States yesterday he reached forward fastto grab something and that caused increased pain. Pain: Pain Pain Level 2: 4 Pain Location 2: Shoulder - Right Post Treatment Pain Post Treatment Pain Location: Shoulder - Right OBJECTIVE MEASURES WITH LEVEL OF FUNCTION: Easily fatigued with scapular stability ball on wall TREATMENT: Therapeutic Exercise: 1: UBE seat #9, no resistance, 2.5 minutes for wards, 2.5 minutes backwards (1:1 throughout. Pt provided update on condition. Pt stated fatigue afterwards) 2: Shoulder pulleys for flexion 3x10 3: *Shoulder isometrics at wall flexion, abdcution, IR, and ER x5 with 10 second holds 4: #2 ball on wall CW and CCW 2x10 each. 5: Full can 3x10 Skilled Intervention: Patient was educated in proper exercise technique and purpose for exercises. Reviewed and educated patient on additions/changes for home exercise program as above (*). Skilled judgment was used in selection of appropriate interventions. Provided written instruction for home exercise program to facilitate proper performance and compliance. Correct performance of therapeutic exercises was facilitated with verbal and visual cuing. Billing Therapeutic Exercise Treatment Minutes: 40 Skilled Treatment Time Minutes (timed and untimed codes): 40 Total Session Time (minutes): 40 Session Start Time : 930 Session Stop Time : 1010 SHANNAN Richards PT documented in this encounterSelect [facility] [place]25 NoteHNO ID: [id number] Author: JOHN ORNELAS PT Service: ? Author Type: Physical Therapist Type: Progress Notes Filed: 12/27/2024 10:22 Note Text: Episode Visit Count: 7 Therapist That Will Accept/Oversee The Plan Of Care: John Ornelas Start of Care Date: 10/25/24 Onset Date: 06/23/24 Plan of Care Certification Date: 12/20/22 Next Certification Due Date: 01/24/23 Patient Identified by Name and Date of : Yes REHABILITATION AND SPORTS THERAPY PHYSICAL THERAPY TREATMENT NOTE ASSESSMENT: Andrea Piedra tolerated the session with fatigue and expected muscle soreness. He demonstrated improvements in tolerance to isometrics. The patient will continue to benefit from ongoing skilled physical therapy to progress toward set goals. PLAN FOR NEXT VISIT: PN. Asses response to isometrics for home SUBJECTIVE: Pt states that his shoulder is holding steady. States yesterday he reached forward fast to grab something and that caused increased pain. Pain: Pain Pain Level 2: 4 Pain Location 2: Shoulder - Right Post Treatment Pain Post Treatment Pain Location: Shoulder - Right OBJECTIVE MEASURES WITH LEVEL OF FUNCTION: Easily fatigued with scapular stability ball on wall TREATMENT: Therapeutic Exercise: 1: UBE seat #9, no resistance, 2.5 minutes for wards, 2.5 minutes backwards (1:1 throughout. Pt provided update on condition. Pt stated fatigue afterwards) 2: Shoulder pulleys for flexion 3x10 3: *Shoulder isometrics at wall flexion, abdcution, IR, and ER x5 with 10 second holds 4: #2 ball on wall CW and CCW 2x10 each. 5: Full can 3x10 Skilled Intervention: Patient was educated in proper exercise technique and purpose for exercises. Reviewed and educated patient on additions/changes for home exercise program as above (*). Skilled judgment was used in selection of appropriate interventions. Provided written instruction for home exercise program to facilitate proper performance and compliance. Correct performance of therapeutic exercises was facilitated with verbal and visual cuing. Billing Therapeutic Exercise Treatment Minutes: 40 Skilled Treatment Time Minutes (timed and untimed codes): 40 Total Session Time (minutes): 40 Session Start Time : 930 Session Stop Time : 1010 Pushpa TempleSHANNAN watters [facility] NoteHNO ID: [id number] Author: VERONA GAMA LPN Service: ? Author Type: LICENSED NURSE Type: Progress Notes Filed: 12/23/2024 09:39 Note Text: Per Andrea Mendoza was provided with powerstep original inserts, size 11, and instructed/educated in its application, wear, and care. All questions were answered, and patient was able to demonstrate competence with the necessary skills to utilize the above equipment. Per Andrea Mendoza was provided with nightsplint, size L, and instructed/educated in its application, wear, and care. All questions were answered, and patient was able to demonstrate competence with the necessary skills to utilize the above equipment. Billed to litzy. [facility]ona [facility] History of Present illness Narrative* Verona Gama LPN - 12/23/2024 9:39 AM EDT Per Andrea Mendoza was provided with powerstep original inserts, size 11, and instructed/educated in its application, wear, and care. All questions were answered, and patient was able to demonstrate competence with the necessary skills to utilize the above equipment. Per Andrea Mendoza was provided with nightsplint, size L, and instructed/educated in its application, wear, and care. All questions were answered, and patient was able to demonstrate competence with the necessary skills to utilize the above equipment. Billed to litzy. Verona Gama LPN * Sandeep Iqbal - 12/23/2024 9:26 AM EDT Consultation requested by Dr. Ward for an opinion regarding left heel pain. My final recommendations will be communicated back to the requesting physician by way of shared Medical record or letter torequesting physician via US mail. Subjective Jamir Piedra is a 64-year-old male with a history of atrial fibrillation, presenting for evaluation of left heel and ankle pain. Left Heel Pain: - Onset mid-September; described as "shooting and throbbing." - Pain localized to the heel and arch, worse upon waking and during the night. - Alleviated somewhat by ambulation. - Physical therapy provided temporary relief through massage and stretching exercises. - Jamir has used a frozen water bottle for icing, but limited by time constraints. - Denies taking any medication for the pain. Left Ankle Pain: - Chronic issue, with swelling and pain developing within an hour of waking. - Pain described as a "tight" sensation, particularly when performing calf raises. - Previous X-ray by Dr. Ward showed no acute abnormalities. - Noted to be "slowing me down," causing compensatory pain in the right knee. Musculoskeletal: (+) left heel pain worse in morning, (+) left arch pain, (+) left ankle pain, (+) left ankle swelling, (+) toe tightness PAST MEDICAL HISTORY Diagnosis Date Anticoagulant long-term use Arrhythmia At risk for stroke [id number] = 1 (HTN) Essential hypertension Essential hypertension Generalized anxiety disorder Hemorrhage of gastrointestinal tract, unspecified Hemorrhoids Paroxysmal atrial fibrillation (HCC) Rectal bleeding 09/2021 Sleep apnea does not use cpap. Snoring Current Outpatient Medications Medication Sig Dispense Refill iv contrast (will be provided with radiology test) MRI ankle LT Inject, intravenously, once for 1 dose. No IV access, insert saline lock prior to the beginning of sedation, infusion, injection of imaging exam. Discontinue saline lock post exam. If Pt. has a central line or IVAD, may access for administration according to line specific nursing protocol. Once exam is complete flush line and de-access according to line specific nursing protocol in the MR contrast administration guidelines link. 1 each 0 loratadine/pseudoephedrine (CLARITIN-D 24 HOUR ORAL) Take 1 tablet by mouth once daily. benazepril (LOTENSIN) 20 mg tablet Take 1 tablet by mouth two times a day. 180 tablet 3 nystatin (MYCOSTATIN) 100,000 unit/mL suspension Take 5 mL by mouth four times daily. 1tsp swish inmouth for several minutes, then swallow (or expectorate) 4 times daily until gone. (Patient not taking: Reported on 09/13/2024) 200 mL 0 flecainide (TAMBOCOR) 100 mg tablet Take 100 mg by mouth as needed. dilTIAZem CD (CARDIZEM CD, CARTIA XT) 240 mg 24 hr capsule Take 1 capsule by mouth once daily. 90 capsule 1 aspirin, enteric coated (ECOTRIN LOW STRENGTH) 81 mg EC tablet Take 81 mg by mouth once daily. atorvastatin (LIPITOR) 20 mg tablet Take 1 tablet by mouth once daily. 90 tablet 3 triamcinolone acetonide (NASACORT NASAL) Use in the nose. fexofenadine (SHANNAN) 180 mg tablet Take 180 mg by mouth once daily. (Patient not taking: Reportedon 09/13/2024) calcium carbonate (TUMS ORAL) Take 2 tablets by mouth as needed. hydroCHLOROthiazide (HYDRODIURIL, ESIDRIX) 12.5 mg tablet Take 12.5 mg by mouth twice daily. melatonin 3 mg capsules Take 3 mg by mouth at bedtime as needed. potassium chloride (K-TAB) 10 mEq tablet Take 10 mEq by mouth once daily. metoprolol tartrate, short acting, (LOPRESSOR) 100 mg tablet Take 100 mg by mouth twice daily. No current facility-administered medications for this visit. Family History Problem Relation Age of Onset Heart Mother Valve Replacement COPD Mother other (history of smoking) Mother Hypertension Father Kidney failure Father kidney disease - on dialysis Heart disease Father heart valve problem Hypertension Sister Hyperlipidemia Sister other (sudden infant ) Brother other (sudden infant ) Brother Thyroid Son Prostate Cancer No Family History none Objective There were no vitals taken for this visit. - Cardiovascular: Dorsalis pedis and posterior tibial pulses faintly palpable bilaterally; capillary refill <5 seconds. - Skin: No open sores on bilateral feet; skin temperature warm to cool. - Musculoskeletal: - Left Ankle: - Swelling along the course of the posterior tibial tendon; palpable soft tissue nodule noted on the medial aspect, just inferior to the medial malleolus. - ROM: Full at the tibiotalar joint; diminished at the subtalar joint. - Left Foot: - Pain present at the plantar medial calcaneal tubercle. - Neurological: Protective sensation intact bilaterally; negative Tinel's sign bilaterally. Imaging: (12/23/2024) X-ray of the left foot and ankle: Plantar and posterior heel spur noted. Lowering of the medial longitudinal arch. No acute fracture. Remote fracture along the medial malleolus. Assessment & Plan 1. Plantar fasciitis (M72.2) - Diagnosed based on clinical presentation of heel pain, particularly severe upon waking, and x-rayfindings of a plantar heel spur. - Educated patient on the importance of consistent stretching exercises: dorsiflexion stretches before getting out of bed (hold for 45 seconds, repeat 2- 3 times) and calf stretches throughout the day. - Recommended wearing supportive lace-up sneakers (e.g., [employer] [place] or Ghost) and provided orthotic inserts for additional arch support. - Provided a night splint to maintain foot dorsiflexion during sleep. - Discussed the option of corticosteroid injection if pain persists despite conservative measures. 2. Posterior tibial tendon dysfunction (M76.829) - Noted swelling along the course of the posterior tibial tendon on physical examination. cannot exclude the presence of soft-tissue masss along the posterior tibial tendon, just proximal to the medial malleolus - Ordered MRI of the left ankle to evaluate the integrity of the posterior tibial tendon and rule out any associated pathology not limited to soft-tissue tumor, ie lipoma or ganglion cyst. 3. Soft tissue mass (M79.89) - Palpable soft tissue nodule noted to the medial aspect of the left ankle, just inferior to the medial malleolus. - Differential diagnosis includes a soft tissue mass contributing to the observed swelling. - MRI of the left ankle will also assess for the presence of a soft tissue mass. Recording using [employer] software for draft documentation of the visit was discussed with the patient/authorized access service representative; all questions welcomed and answered. Patient/authorized access service representative agreed to proceed Sandeep Iqbal DPM * Verona Gama LPN - 12/23/2024 9:07 AM EDT AMB ROOMING INTAKE FLOWSHEET DATA Pain Pain Level: 6 Pain Location: Foot-Left Description: Sharp, Dull, Throbbing, Stabbing Duration Amount of Time: 4 Duration Units: Months Frequency: Intermittent Intervention/Comfort measure: Reposition, Relaxation Patient presents with: Left Foot - New, Pain, Swelling Left Ankle - New, Pain, Swelling Verona Gama LPN [facility] [place] NoteHNO ID: [id number] Author: SANDEEP IQBAL, ? Service: ? Author Type: Physician Type: Progress Notes Filed: 12/23/2024 09:27 Note Text: Consultation requested by Dr. Ward for an opinion regarding left heel pain. My final recommendations will be communicated back to the requesting physician by way of shared Medical record or letter to requesting physician via US mail. Subjective Jamir Piedra is a 64-year-old male with a history of atrial fibrillation, presenting for evaluation of left heel and ankle pain. Left Heel Pain: - Onset mid-September; described as "shooting and throbbing." - Pain localized to the heel and arch, worse upon waking and during the night. - Alleviated somewhat by ambulation. - Physical therapy provided temporary relief through massage and stretching exercises. - Jamir has used a frozen water bottle for icing, but limited by time constraints. - Denies taking any medication for the pain. Left Ankle Pain: - Chronic issue, with swelling and pain developing within an hour of waking. - Pain described as a "tight" sensation, particularly when performing calf raises. - Previous X-ray by Dr. Ward showed no acute abnormalities. - Noted to be "slowing me down," causing compensatory pain in the right knee. Musculoskeletal: (+) left heel pain worse in morning, (+) left arch pain, (+) left ankle pain, (+) left ankle swelling, (+) toe tightness PAST MEDICAL HISTORY Diagnosis Date Anticoagulant long-term use Arrhythmia At risk for stroke [id number] = 1 (HTN) Essential hypertension Essential hypertension Generalized anxiety disorder Hemorrhage of gastrointestinal tract, unspecified Hemorrhoids Paroxysmal atrial fibrillation (HCC) Rectal bleeding 09/2021 Sleep apnea does not use cpap. Snoring Current Outpatient Medications Medication Sig Dispense Refill iv contrast (will be provided with radiology test) MRI ankle LT Inject, intravenously, once for 1 dose. No IV access, insert saline lock prior to the beginning of sedation, infusion, injection of imaging exam. Discontinue saline lock post exam. If Pt. has a central line or IVAD, may access for administration according to line specific nursing protocol. Once exam is complete flush line and de-access according to line specific nursing protocol in the MR contrast administration guidelines link. 1 each 0 loratadine/pseudoephedrine (CLARITIN-D 24 HOUR ORAL) Take 1 tablet by mouth once daily. benazepril (LOTENSIN) 20 mg tablet Take 1 tablet by mouth two times a day. 180 tablet 3 nystatin (MYCOSTATIN) 100,000 unit/mL suspension Take 5 mL by mouth four times daily. 1tsp swish in mouth for several minutes, then swallow (or expectorate) 4 times daily until gone. (Patient not taking: Reported on 09/13/2024) 200 mL 0 flecainide (TAMBOCOR) 100 mg tablet Take 100 mg by mouth as needed. dilTIAZem CD (CARDIZEM CD, CARTIA XT) 240 mg 24 hr capsule Take 1 capsule by mouth once daily. 90 capsule 1 aspirin, enteric coated (ECOTRIN LOW STRENGTH) 81 mg EC tablet Take 81 mg by mouth once daily. atorvastatin (LIPITOR) 20 mg tablet Take 1 tablet by mouth once daily. 90 tablet 3 triamcinolone acetonide (NASACORT NASAL) Use in the nose. fexofenadine (SHANNAN) 180 mg tablet Take 180 mg by mouth once daily. (Patient not taking: Reported on 09/13/2024) calcium carbonate (TUMS ORAL) Take 2 tablets by mouth as needed. hydroCHLOROthiazide (HYDRODIURIL, ESIDRIX) 12.5 mg tablet Take 12.5 mg by mouth twice daily. melatonin 3 mg capsules Take 3 mg by mouth at bedtime as needed. potassium chloride (K-TAB) 10 mEq tablet Take 10 mEq by mouth once daily. metoprolol tartrate, short acting, (LOPRESSOR) 100 mg tablet Take 100 mg by mouth twice daily. No current facility-administered medications for this visit. Family History Problem Relation Age of Onset Heart Mother Valve Replacement COPD Mother other (history of smoking) Mother Hypertension Father Kidney failure Father kidney disease - on dialysis Heart disease Father heart valve problem Hypertension Sister Hyperlipidemia Sister other (sudden infant ) Brother other (sudden infant ) Brother Thyroid Son Prostate Cancer No Family History none Objective There were no vitals taken for this visit. - Cardiovascular: Dorsalis pedis and posterior tibial pulses faintly palpable bilaterally; capillary refill <5 seconds. - Skin: No open sores on bilateral feet; skin temperature warm to cool. - Musculoskeletal: - Left Ankle: - Swelling along the course of the posterior tibial tendon; palpable soft tissue nodule noted on the medial aspect, just inferior to the medial malleolus. - ROM: Full at the tibiotalar joint; diminished at the subtalar joint. - Left Foot: - Pain present at the plantar medial calcaneal tubercle. - Neurological: Protective sensation intact bilaterally; negative Tinel's sign bilaterally. Imaging: (12/23/2024) X-ray o (more content not included)...[facility] 12-23-2024 Instructions* Patient Instructions* Sandeep Iqbal - 12/23/2024 9:21 AM EDT Powerstep Original Full length. Can purchase at [facility] [employer] and boots,shoes and more here in [place], [employer] in [place] or [place]. Also can find in [place] in [facility]. Powersteps can also be purchased online, starting around $45.00 If you have a metatarsal or dancer pad for your feet apply the pad directly to the insole so you can interchange between your shoes. Find a shoe with a removable insole and take this out and replace with your powerstep insole. Always bring powersteps with you when shopping for shoes so that you can make sure that everything fits well together - Before getting out of bed each morning, pull your toes toward your nose and hold for about 45 seconds; repeat 2-3 times. - Perform calf stretches three times a day (morning, afternoon, evening) and before bed: Wall push-up stretch with feet slightly turned inward Heel-drop stretch standing on a step - Wear supportive lace-up sneakers (such as Gavin Matthews or Ghost, Hoka, Asics, or New Balance) instead of slip-on shoes. - Place the provided arch-support inserts in your shoes every day. - Use the night splint supplied to keep your foot stretched while you sleep. - Ice your heel as needed (for example, roll a frozen water bottle under your foot) when pain flares. - If heel pain persists despite these measures, you may consider a corticosteroid injection into the heel; let us know if you d like to proceed. - An MRI of your left ankle has been ordered to evaluate the soft tissue swelling and the plantar fascia. documented in this encounter[facility] [place]25 NoteHNO ID: [id number] Author: VERONA GAMA LPN Service: ? Author Type: LICENSED NURSE Type: Progress Notes Filed: 12/23/2024 09:27 Note Text: AMB ROOMING INTAKE FLOWSHEET DATA Pain Pain Level: 6 Pain Location: Foot-Left Description: Sharp, Dull, Throbbing, Stabbing Duration Amount of Time: 4 Duration Units: Months Frequency: Intermittent Intervention/Comfort measure: Reposition, Relaxation Patient presents with: Left Foot - New, Pain, Swelling Left Ankle - New, Pain, Swelling [facility] History of Present illness Narrative* Romana Lebron, RT(R) - 12/23/2024 8:40 AM EDT Radiology Service Progress Note PATIENT NAME: Andrea Piedra DATE OF SERVICE: December 23, 2024 TIME: 11:53 AM PATIENT IDENTITY VERIFICATION COMPLETED USING TWO (2) IDENTIFIERS: Name and Date of confirmedby patient verbally. FALL SCREENING: Has the patient had 2 falls in the last year or 1 fall with injury or currently using an Ambulatory Assistive Device (Walker, Cane, Wheelchair, Crutches, etc.)? No PATIENT GENDER DATA: Assigned male at PATIENT RELEVANT IMPLANT DATA REVIEWED: Not Applicable PATIENT PRESENTS WITH AN IMPLANTABLE OR ATTACHED CASTING OPERATOR: No RADIOLOGY DEPARTMENT: General X-ray: Exam(s) Completed: Lower Extremity X- Ray(s): Foot, Left and Wt. Bearing PERIPHERAL IV DATA: Not applicable SIGNED BY: RT Marjorie(R) December 23, 2024 11:53 AM documented in this encounterSelect [facility] [place]-2025 NoteHNO ID: [id number] Author: ROMANA LEBRON RT(R) Service: ? Author Type: Technologist Type: Progress Notes Filed: 12/23/2024 11:53 Note Text: Radiology Service Progress Note PATIENT NAME: Andrea Piedra DATE OF SERVICE: December 23, 2024 TIME: 11:53 AM PATIENT IDENTITY VERIFICATION COMPLETED USING TWO (2) IDENTIFIERS: Name and Date of confirmed by patient verbally. FALL SCREENING: Has the patient had 2 falls in the last year or 1 fall with injury or currently using an Ambulatory Assistive Device (Walker, Cane, Wheelchair, Crutches, etc.)? No PATIENT GENDER DATA: Assigned male at PATIENT RELEVANT IMPLANT DATA REVIEWED: Not Applicable PATIENT PRESENTS WITH AN IMPLANTABLE OR ATTACHED CASTING OPERATOR: No RADIOLOGY DEPARTMENT: General X-ray: Exam(s) Completed: Lower Extremity X-Ray(s): Foot, Left and Wt. Bearing PERIPHERAL IV DATA: Not applicable SIGNED BY: RT Marjorie(Sophie) December 23, 2024 11:53 [facility]07-01-2025 NoteHNO ID: [id number] Author: JOHN ORNELAS PT Service: ? Author Type: Physical Therapist Type: Progress Notes Filed: 12/21/2024 12:50 Note Text: Episode Visit Count: 6 Therapist That Will Accept/Oversee The Plan Of Care: John Ornelas Start of Care Date: 10/25/24 Onset Date: 06/23/24 Plan of Care Certification Date: 12/20/22 Next Certification Due Date: 01/24/23 Patient Identified by Name and Date of : Yes REHABILITATION AND SPORTS THERAPY PHYSICAL THERAPY TREATMENT NOTE ASSESSMENT: Andrea Piedra tolerated the session with fatigue and expected muscle soreness. He demonstrated difficulty with SL ER. The patient will continue to benefit from ongoing skilled physical therapy to progress toward set goals. PLAN FOR NEXT VISIT: Asses response to isometrics nad give for HEP. SUBJECTIVE: Pt reports that his shoulder is not feeling too terrible, might be slightly better. Pt states that depending on what he does, it aggrevates. Abdcution inreases pain or reaching forward Pain: Pain Pain Level 2: 2 (at rest; increases to 7/10 with certain movements) Pain Location 2: Shoulder - Right Post Treatment Pain Post Treatment Pain Location: Shoulder - Right Post Treatment Symptoms: Fatigue OBJECTIVE MEASURES WITH LEVEL OF FUNCTION: Easily fatigued with isometrics TREATMENT: Therapeutic Exercise: 1: Shoulder pulleys for flexion 3x10 2: Shoulder wand ER 3x10 3: *Wand AAROM abduction 3x10 4: SL ER 3x10 5: Full can 3x10 6: Shoulder isometrics at wall flexion, abdcution, IR, and ER x5 with 10 second holds Skilled Intervention: Patient was educated in proper exercise technique and purpose for exercises. Reviewed and educated patient on additions/changes for home exercise program as above (*). Skilled judgment was used in selection of appropriate interventions. Correct performance of therapeutic exercises was facilitated with verbal and visual cuing. Billing Therapeutic Exercise Treatment Minutes: 39 Skilled Treatment Time Minutes (timed and untimed codes): 39 Total Session Time (minutes): 39 Session Start Time : 1010 Session Stop Time : 1049 Pushpa Williamson, MANAGER ACQUISITION John Ornelas, [facility]07-01-2025 History of Present illness Narrative* John Ornelas, PT - 12/21/2024 10:16 AM EDT Episode Visit Count: 6 Therapist That Will Accept/Oversee The Plan Of Care: John Ornelas Start of Care Date: 10/25/24 Onset Date: 06/23/24 Plan of Care Certification Date: 12/20/22 Next Certification Due Date: 01/24/23 Patient Identified by Name and Date of : Yes REHABILITATION AND SPORTS THERAPY PHYSICAL THERAPY TREATMENT NOTE ASSESSMENT: nAdrea Piedra tolerated the session with fatigue and expected muscle soreness. He demonstrated difficulty with SL ER. The patient will continue to benefit from ongoing skilled physical therapy to progress toward set goals. PLAN FOR NEXT VISIT: Asses response to isometrics nad give for HEP. SUBJECTIVE: Pt reports that his shoulder is not feeling too terrible, might be slightly better. Pt states that depending on what he does, it aggrevates. Abdcution inreases pain or reaching forward Pain: Pain Pain Level 2: 2 (at rest; increases to 7/10 with certain movements) Pain Location 2: Shoulder - Right Post Treatment Pain Post Treatment Pain Location: Shoulder - Right Post Treatment Symptoms: Fatigue OBJECTIVE MEASURES WITH LEVEL OF FUNCTION: Easily fatigued with isometrics TREATMENT: Therapeutic Exercise: 1: Shoulder pulleys for flexion 3x10 2: Shoulder wand ER 3x10 3: *Wand AAROM abduction 3x10 4: SL ER 3x10 5: Full can 3x10 6: Shoulder isometrics at wall flexion, abdcution, IR, and ER x5 with 10 second holds Skilled Intervention: Patient was educated in proper exercise technique and purpose for exercises. Reviewed and educated patient on additions/changes for home exercise program as above (*). Skilled judgment was used in selection of appropriate interventions. Correct performance of therapeutic exercises was facilitated with verbal and visual cuing. Billing Therapeutic Exercise Treatment Minutes: 39 Skilled Treatment Time Minutes (timed and untimed codes): 39 Total Session Time (minutes): 39 Session Start Time : 1010 Session Stop Time : 1049 SHANNAN Richards PT documented in this encounterSelect [facility] [place]25 NoteHNO ID: [id number] Author: JOHN ORNELAS PT Service: ? Author Type: Physical Therapist Type: Progress Notes Filed: 12/09/2024 14:56 Note Text: Episode Visit Count: 5 Therapist That Will Accept/Oversee The Plan Of Care: John Ornelas Start of Care Date: 10/25/24 Onset Date: 06/23/24 Plan of Care Certification Date: 12/20/22 Next Certification Due Date: 01/24/23 REHABILITATION AND SPORTS THERAPY PHYSICAL THERAPY PROGRESS REPORT PLAN OF CARE UPDATE: Assessment: Andrea Piedra demonstrates minimal improvement in reaching behind back, reaching overhead, and use hand with arm at shoulder level. The patient has progressed toward goals. Patient continues to present with impairments in ADL's, gait, overall function, range of motion, strength, symptom management, and tissue tenderness that interfere with rising from a chair, standing, walking, heavy exertion, lifting, physical activities, reaching behind back, reaching overhead, use hand with arm at shoulder level . Current prognosis is Fair due to: clinical presentation, multiple co- morbidities, chronic nature of impairments, limited tolerance to activity, poor past response to therapy intervention . The patient will benefit from continued skilled therapy services to meet the updated goals for this plan of care as noted below. Goals updated on 12/07/2024 Goals for Episode of Care: established 10/25/24 Rush in home exercise program. Met Patient will decrease pain rating by 2 points to meet minimal clinical important difference for numeric pain rating scale. Met shoulders, not met heel Patient will increase active ROM of R shoulder to WNL to allow pt to to improve performance of ADLs. Improved Patient will demonstrate increase in R shoulder ER strength to 4+/5 during manual muscle testing in order to improve function for basic self-care tasks, home management tasks, leisure / recreation skills, moderate to heavy functional tasks, and prior functional tasks. Improved Perform reaching, lifting, and walking with decreased report of symptoms/pain in 4-6 weeks. Improved reaching, lifting, not walking. Perform self care and ADLs without pain. Partially met Time Frame for Goals and Treatment : 01/08/25 Planned Interventions, Frequency, and Duration: 1x/week, 4 weeks Total Number of Visits Planned: 4 Patient to be seen for Therapeutic exercise (37689), Neuromuscular re-education (98947), Manual therapy (37744), Therapeutic activities (48548), Self-longterm management (81281), Patient/Family/Caregiver Education, Body Mechanics Training PLAN FOR NEXT VISIT: Continue with shoulders, DC from foot/heel and will seek podiatry consult SUBJECTIVE: Patient notes no change in his heel, and he is willing to seek podiatry consult. Shoulders continue to show slow but steady progress. Pain is less often and intense with his shoulders, mainly hurts in impingement positions of reaching behind back, behind him, or across body. Functional Limitations: rising from a chair, standing, walking, heavy exertion, lifting, physical activities, reaching behind back, reaching overhead, use hand with arm at shoulder level Pain: Pain Pain Level: 8 Pain Location: Heel - Left Description: Aching, Sharp Frequency: Intermittent Additional Pain Information : Location 2 Pain Level 2: 4 Pain Location 2: Shoulder - Right Description 2: Sharp Frequency 2: Continuous PROMIS Scales 12/02/2024 10/25/2024 04/30/2024 Higher is Better Phys Func - T Score 40 (mild dysfunction) 42 (mild dysfunction) 43 (mild dysfunction) Phys Func - Percentile 16 21 24 Self-Eff Symptom - T Score 42 (Average) 41 (Average) 41 (Average) Self-Eff Symptom - Percentile 21 18 18 Proxy-reported T-scores: mean of general population = 50. 5 points is clinically meaningfully difference Percentiles provide an indication of how the patient's score ranks in relation to the general population. Higher percentile rankings indicate better function/quality of life. 50th percentile is the average of the general population and indicates half of respondents had a worse score. OBJECTIVE MEASURES WITH LEVEL OF FUNCTION: UE AROM R UE AROM: Minimal limitation with flexion and functional ER; moderate to major limitation with abduction and functional IR TREATMENT: Therapeutic Exercise: 1: Objective measures obtained 2: *Shoulder pulleys into flexion/scaption 3x10 3: *Wand ER 3x10 4: *Full can 3x10 5: *SL ER 3x10 Skilled Intervention: Patient was educated in proper exercise technique and purpose for exercises. Skilled judgment was used in selection of appropriate interventions. Provided written instruction for home exercise program to facilitate proper performance and compliance. Correct performance of therapeutic exercises was facilitated with verbal, visual, and tactile cuing. Billing Therapeutic Exercise Treatment Minutes: 40 Skilled Treatment Time Minutes (more content not included)...[facility]06-19-2025 History of Present illness Narrative* Mark Ornelasn, PT - 12/09/2024 2:48 PM EDT Images from the original note were not included. Episode Visit Count: 5 Therapist That Will Accept/Oversee The Plan Of Care: John Ornelas Start of Care Date: 10/25/24 Onset Date: 06/23/24 Plan of Care Certification Date: 12/20/22 Next Certification Due Date: 01/24/23 REHABILITATION AND SPORTS THERAPY PHYSICAL THERAPY PROGRESS REPORT PLAN OF CARE UPDATE: Assessment: Andrea Verma Tadeo demonstrates minimal improvement in reaching behind back, reaching overhead, and usehand with arm at shoulder level. The patient has progressed toward goals. Patient continues to present with impairments in ADL's, gait, overall function, range of motion, strength, symptom management, and tissue tenderness that interfere with rising from a chair, standing, walking, heavy exertion, lifting, physical activities, reaching behind back, reaching overhead, use hand with arm at shoulderlevel . Current prognosis is Fair due to: clinical presentation, multiple co- morbidities, chronic nature of impairments, limited tolerance to activity, poor past response to therapy intervention . The patient will benefit from continued skilled therapy services to meet the updated goals for this plan of care as noted below. Goals updated on 12/07/2024 Goals for Episode of Care: established 10/25/24 Rush in home exercise program. Met Patient will decrease pain rating by 2 points to meet minimal clinical important difference for numeric pain rating scale. Met shoulders, not met heel Patient will increase active ROM of R shoulder to WNL to allow pt to to improve performance of ADLs. Improved Patient will demonstrate increase in R shoulder ER strength to 4+/5 during manual muscle testing in order to improve function for basic self-care tasks, home management tasks, leisure / recreation skills, moderate to heavy functional tasks, and prior functional tasks. Improved Perform reaching, lifting, and walking with decreased report of symptoms/pain in 4-6 weeks. Improved reaching, lifting, not walking. Perform self care and ADLs without pain. Partially met Time Frame for Goals and Treatment : 01/08/25 Planned Interventions, Frequency, and Duration: 1x/week, 4 weeks Total Number of Visits Planned: 4 Patient to be seen for Therapeutic exercise (78800), Neuromuscular re-education (23951), Manual therapy (75269), Therapeutic activities (67152), Self-longterm management (16090), Patient/Family/Caregiver Education, Body Mechanics Training PLAN FOR NEXT VISIT: Continue with shoulders, DC from foot/heel and will seek podiatry consult SUBJECTIVE: Patient notes no change in his heel, and he is willing to seek podiatry consult. Shoulders continue to show slow but steady progress. Pain is less often and intense with his shoulders, mainly hurts in impingement positions of reaching behind back, behind him, or across body. Functional Limitations: rising from a chair, standing, walking, heavy exertion, lifting, physical activities, reaching behind back, reaching overhead, use hand with arm at shoulder level Pain: Pain Pain Level: 8 Pain Location: Heel - Left Description: Aching, Sharp Frequency: Intermittent Additional Pain Information : Location 2 Pain Level 2: 4 Pain Location 2: Shoulder - Right Description 2: Sharp Frequency 2: Continuous PROMIS Scales 12/02/2024 10/25/2024 04/30/2024 Higher is Better Phys Func - T Score 40 (mild dysfunction) 42 (mild dysfunction) 43 (mild dysfunction) Phys Func - Percentile 16 21 24 Self-Eff Symptom - T Score 42 (Average) 41 (Average) 41 (Average) Self-Eff Symptom - Percentile 21 18 18 Proxy-reported T-scores: mean of general population = 50. 5 points is clinically meaningfully difference Percentiles provide an indication of how the patient's score ranks in relation to the general population. Higher percentile rankings indicate better function/quality of life. 50th percentile is the average of the general population and indicates half of respondents had a worse score. OBJECTIVE MEASURES WITH LEVEL OF FUNCTION: UE AROM R UE AROM: Minimal limitation with flexion and functional ER; moderate to major limitation with abduction and functional IR TREATMENT: Therapeutic Exercise: 1: Objective measures obtained 2: *Shoulder pulleys into flexion/scaption 3x10 3: *Wand ER 3x10 4: *Full can 3x10 5: *SL ER 3x10 Skilled Intervention: Patient was educated in proper exercise technique and purpose for exercises. Skilled judgment was used in selection of appropriate interventions. Provided written instruction for home exercise program to facilitate proper performance and compliance. Correct performance of therapeutic exercises was facilitated with verbal, visual, and tactile cuing. Billing Therapeutic Exercise Treatment Minutes: 40 Skilled Treatment Time Minutes (timed and untimed codes): 40 Total Session Time (minutes): 40 Session Start Time : 20 Session Stop Time : 1000 John Ornelas PT * John Ornelas PT - 12/07/2024 9:56 AM EDT Program_ID:[id number] Access Code: [email or web address] URL: [email or web address] Date: 12-07-2024 Prepared By: John Ornelas Program Notes Exercises - Seated Shoulder Flexion AAROM with Joseph Behind - 1 x daily - 7 x weekly - 3 sets - 10 reps - Standing Shoulder External Rotation AAROM with Dowel - 1 x daily - 7 x weekly - 3 sets - 10 reps - Standing Shoulder Scaption - 1 x daily - 7 x weekly - 3 sets - 10 reps - Sidelying Shoulder External Rotation - 1 x daily - 7 x weekly - 3 sets - 10 reps [facility] [place] Telephone encounter Note * Telephone Encounter - Alan Ward MD - 12/08/2024 12:14 PM EDT Spoke with therapy. Its not helping, he would like to see podiatry. Please set up. [facility] [place]06-18-2025 Miscellaneous Notes* Telephone Encounter - Alan Ward MD - 12/08/2024 12:14 PM EDT Spoke with therapy. Its not helping, he would like to see podiatry. Please set up. [facility] [place]25 NoteHNO ID: [id number] Author: JOHN ORNELAS PT Service: ? Author Type: Physical Therapist Type: Progress Notes Filed: 12/03/2024 08:05 Note Text: Episode Visit Count: 4 Therapist That Will Accept/Oversee The Plan Of Care: John Ornelas Start of Care Date: 10/25/24 Onset Date: 06/23/24 Plan of Care Certification Date: 12/20/22 Next Certification Due Date: 01/24/23 Patient Identified by Name and Date of : Yes REHABILITATION AND SPORTS THERAPY PHYSICAL THERAPY TREATMENT NOTE ASSESSMENT: Andrea Piedra tolerated the session with decreased symptoms and expected muscle soreness. He demonstrated improvements in pain after IASTM. The patient will continue to benefit from ongoing skilled physical therapy to progress toward set goals. PLAN FOR NEXT VISIT: PN SUBJECTIVE: Pt apologizes for missing his last appointment. Pt reports that his shoulders don't seem to be any worse, but his foot is really bothering him and now is having R knee pain due to compensations. Has relief until the end of the day after manual techniques performed in therapy, but then pain comes right back. Riding in the car yesterday caused sharp pain in his L heel. Pain: Pain Pain Level: 5 Pain Location: Heel - Left Description: Aching, Sharp Post Treatment Pain Post Treatment Pain Level: Better OBJECTIVE MEASURES WITH LEVEL OF FUNCTION: Antalgic gait this visit. Visible inflammation at L medial malleoli. TREATMENT: Therapeutic Exercise: 1: Great toe extension stretch 3x30 sec 2: Long sitting calf stretch 3x30 seconds B 3: Plantar fascia stretch 3x30 seconds LLE 4: Reviewed imaging and showed pt where bone spurs are and how it relates to his symptoms Skilled Intervention: Patient was educated in proper exercise technique and purpose for exercises. Skilled judgment was used in selection of appropriate interventions. Correct performance of therapeutic exercises was facilitated with verbal and visual cuing. Manual Therapy: 1: IASTM over L plantar fascia x 15 minutes with push to tolerance. Skilled Intervention: Manual skills to improve joint mobility, ROM, and decrease pain. Utilized anatomy knowledge of the clinician, and assessment of patient's response to intervention. Billing Therapeutic Exercise Treatment Minutes: 23 Manual TherapyTreatment Minutes: 15 Skilled Treatment Time Minutes (timed and untimed codes): 38 Total Session Time (minutes): 38 Session Start Time : 924 Session Stop Time : 100 SHANNAN Richards, [facility]06-12-2025 History of Present illness Narrative* John Ornelas, PT - 12/02/2024 9:30 AM EDT Episode Visit Count: 4 Therapist That Will Accept/Oversee The Plan Of Care: John Ornelas Start of Care Date: 10/25/24 Onset Date: 06/23/24 Plan of Care Certification Date: 12/20/22 Next Certification Due Date: 01/24/23 Patient Identified by Name and Date of : Yes REHABILITATION AND SPORTS THERAPY PHYSICAL THERAPY TREATMENT NOTE ASSESSMENT: Andrea Piedra tolerated the session with decreased symptoms and expected muscle soreness. He demonstrated improvements in pain after IASTM. The patient will continue to benefit from ongoing skilled physical therapy to progress toward set goals. PLAN FOR NEXT VISIT: PN SUBJECTIVE: Pt apologizes for missing his last appointment. Pt reports that his shoulders don't seem to be any worse, but his foot is really bothering him and now is having R knee pain due to compensations. Has relief until the end of the day after manual techniques performed in therapy, but then pain comes right back. Riding in the car yesterday caused sharp pain in his L heel. Pain: Pain Pain Level: 5 Pain Location: Heel - Left Description: Aching, Sharp Post Treatment Pain Post Treatment Pain Level: Better OBJECTIVE MEASURES WITH LEVEL OF FUNCTION: Antalgic gait this visit. Visible inflammation at L medial malleoli. TREATMENT: Therapeutic Exercise: 1: Great toe extension stretch 3x30 sec 2: Long sitting calf stretch 3x30 seconds B 3: Plantar fascia stretch 3x30 seconds LLE 4: Reviewed imaging and showed pt where bone spurs are and how it relates to his symptoms Skilled Intervention: Patient was educated in proper exercise technique and purpose for exercises. Skilled judgment was used in selection of appropriate interventions. Correct performance of therapeutic exercises was facilitated with verbal and visual cuing. Manual Therapy: 1: IASTM over L plantar fascia x 15 minutes with push to tolerance. Skilled Intervention: Manual skills to improve joint mobility, ROM, and decrease pain. Utilized anatomy knowledge of the clinician, and assessment of patient's response to intervention. Billing Therapeutic Exercise Treatment Minutes: 23 Manual TherapyTreatment Minutes: 15 Skilled Treatment Time Minutes (timed and untimed codes): 38 Total Session Time (minutes): 38 Session Start Time : 924 Session Stop Time : 100 SHANNAN Richards PT documented in this encounter[facility] [place] History of Present illness Narrative* John Ornelas PT - 11/18/2024 9:15 AM EDT Episode Visit Count: 3 Therapist That Will Accept/Oversee The Plan Of Care: John Ornelas Start of Care Date: 10/25/24 Onset Date: 06/23/24 Plan of Care Certification Date: 12/20/22 Next Certification Due Date: 01/24/23 Patient Identified by Name and Date of : Yes REHABILITATION AND SPORTS THERAPY PHYSICAL THERAPY TREATMENT NOTE ASSESSMENT: Andrea Piedra tolerated the session with decreased symptoms. He demonstrated improvements in pain with weightbearing on LLE after manual therapy. The patient will continue to benefit from ongoing skilled physical therapy to progress toward set goals. PLAN FOR NEXT VISIT: AAROM for [place] movements of shoulder. Manual for plantar fascia. SUBJECTIVE: Pt reports that his shoulder is holding its own. Pt states that his foot pain comes andgoes and it is bothering him today. Pain: Pain Pain Level: 7 Pain Location: Heel - Left Description: Aching, Sharp Post Treatment Pain Post Treatment Pain Level: 0 OBJECTIVE MEASURES WITH LEVEL OF FUNCTION: Rigid throughout L plantar fascia. TREATMENT: Therapeutic Exercise: 1: Plantar fascia stretch 3x30 seconds LLE 2: Great toe extension stretch 3x30 sec 3: Long sitting calf stretch 3x30 seconds B Skilled Intervention: Patient was educated in proper exercise technique and purpose for exercises. Skilled judgment was used in selection of appropriate interventions. Correct performance of therapeutic exercises was facilitated with verbal and visual cuing. Manual Therapy: 1: STM over L plantar fascia x 15 minutes with push to tolerance. Skilled Intervention: Manual skills to improve joint mobility, ROM, and decrease pain. Utilized anatomy knowledge of the clinician, and assessment of patient's response to intervention. Billing Therapeutic Exercise Treatment Minutes: 23 Manual TherapyTreatment Minutes: 15 Skilled Treatment Time Minutes (timed and untimed codes): 38 Total Session Time (minutes): 38 Session Start Time : 914 Session Stop Time : 952 Pushpa Williamson, [facility] John Ornelas PT documented in this encounterSelect [facility] [place]25 NoteHNO ID: [id number] Author: JOHN ORNELAS PT Service: ? Author Type: Physical Therapist Type: Progress Notes Filed: 11/18/2024 11:07 Note Text: Episode Visit Count: 3 Therapist That Will Accept/Oversee The Plan Of Care: John Ornelas Start of Care Date: 10/25/24 Onset Date: 06/23/24 Plan of Care Certification Date: 12/20/22 Next Certification Due Date: 01/24/23 Patient Identified by Name and Date of : Yes REHABILITATION AND SPORTS THERAPY PHYSICAL THERAPY TREATMENT NOTE ASSESSMENT: Andrea Piedra tolerated the session with decreased symptoms. He demonstrated improvements in pain with weightbearing on LLE after manual therapy. The patient will continue to benefit from ongoing skilled physical therapy to progress toward set goals. PLAN FOR NEXT VISIT: AAROM for [place] movements of shoulder. Manual for plantar fascia. SUBJECTIVE: Pt reports that his shoulder is holding its own. Pt states that his foot pain comes and goes and it is bothering him today. Pain: Pain Pain Level: 7 Pain Location: Heel - Left Description: Aching, Sharp Post Treatment Pain Post Treatment Pain Level: 0 OBJECTIVE MEASURES WITH LEVEL OF FUNCTION: Rigid throughout L plantar fascia. TREATMENT: Therapeutic Exercise: 1: Plantar fascia stretch 3x30 seconds LLE 2: Great toe extension stretch 3x30 sec 3: Long sitting calf stretch 3x30 seconds B Skilled Intervention: Patient was educated in proper exercise technique and purpose for exercises. Skilled judgment was used in selection of appropriate interventions. Correct performance of therapeutic exercises was facilitated with verbal and visual cuing. Manual Therapy: 1: STM over L plantar fascia x 15 minutes with push to tolerance. Skilled Intervention: Manual skills to improve joint mobility, ROM, and decrease pain. Utilized anatomy knowledge of the clinician, and assessment of patient's response to intervention. Billing Therapeutic Exercise Treatment Minutes: 23 Manual TherapyTreatment Minutes: 15 Skilled Treatment Time Minutes (timed and untimed codes): 38 Total Session Time (minutes): 38 Session Start Time : 914 Session Stop Time : 952 Pushpa Williamson, SHANNAN Ornelas, [facility]05-22-2025 NoteHNO ID: [id number] Author: JOHN ORNELAS PT Service: ? Author Type: Physical Therapist Type: Progress Notes Filed: 11/11/2024 14:32 Note Text: Episode Visit Count: 2 Therapist That Will Accept/Oversee The Plan Of Care: John Ornelas Start of Care Date: 10/25/24 Onset Date: 06/23/24 Plan of Care Certification Date: 12/20/22 Next Certification Due Date: 01/24/23 Patient Identified by Name and Date of : Yes REHABILITATION AND SPORTS THERAPY PHYSICAL THERAPY TREATMENT NOTE ASSESSMENT: Andrea Piedra tolerated the session with fatigue, decreased symptoms, and expected muscle soreness. He demonstrated improvements in tightness of L plantar fascia. The patient will continue to benefit from ongoing skilled physical therapy to progress toward set goals. PLAN FOR NEXT VISIT: Review shoulder exercises as pt deferred them this session. Continue with STM for plantar fascia prn. SUBJECTIVE: Pt reports that his foot is bothering him more today than the shoulders. Pt states that his shoulders seem better, can do more active motion. Has R calf pain now and presents with antalgic gait due to L foot. Pain: Pain Pain Level: 7 (at its worst, hurts more with prolonged sitting and then going to get up.) Pain Location: Heel - Left Description: Aching, Sharp Frequency: Intermittent Post Treatment Pain Post Treatment Pain Level: Better Post Treatment Symptoms: Decreased symptoms in L plantar fascia with STM OBJECTIVE MEASURES WITH LEVEL OF FUNCTION: Soft tissue restrictions over medial aspect of L plantar fascia. TREATMENT: Therapeutic Exercise: 1: Plantar fascia stretch 3x30 seconds LLE 2: Great toe extension stretch 3x30 sec 3: Long sitting calf stretch 3x30 seconds B x Skilled Intervention: Patient was educated in proper exercise technique and purpose for exercises. Skilled judgment was used in selection of appropriate interventions. Correct performance of therapeutic exercises was facilitated with verbal and visual cuing. Manual Therapy: 1: STM over L plantar fascia x 11 minutes with push to tolerance. Skilled Intervention: Manual skills to improve joint mobility, ROM, and decrease pain. Utilized anatomy knowledge of the clinician, and assessment of patient's response to intervention. Billing Therapeutic Exercise Treatment Minutes: 25 Manual TherapyTreatment Minutes: 15 Skilled Treatment Time Minutes (timed and untimed codes): 40 Total Session Time (minutes): 40 Session Start Time : 912 Session Stop Time : 952 Pushpa Williamson, SHANNAN Ornelas, [facility]05-05-2025 NoteHNO ID: [id number] Author: JOHN ORNELAS PT Service: ? Author Type: Physical Therapist Type: Progress Notes Filed: 10/25/2024 13:32 Note Text: Episode Visit Count: 1 Therapist That Will Accept/Oversee The Plan Of Care: John Ornelas Start of Care Date: 10/25/24 Onset Date: 06/23/24 Plan of Care Certification Date: 12/20/22 Next Certification Due Date: 01/24/23 Patient Identified by Name and Date of : Yes REHABILITATION AND SPORTS THERAPY PHYSICAL THERAPY EVALUATION PLAN OF CARE: Assessment: Andrea Piedra presents with chief complaint of L plantar fasciitis and B shoulder pain that interferes with rising from a chair, walking, standing, heavy exertion, lifting, physical activities, sleeping, reaching behind back, reaching overhead, use hand with arm at shoulder level . The patient presents with impairments in ADL's, overall function, range of motion, strength, symptom management, and tissue tenderness. PROMIS? (Patient-Reported Outcomes Measurement Information System) scores were reviewed and identified as a rehabilitation concern. Prognosis for therapy is Fair due to: clinical presentation, multiple co- morbidities, chronic nature of impairments, limited tolerance to activity, poor past response to therapy intervention . The patient will benefit from skilled therapy services to meet the goals established for this plan of care as noted below. Goals for Episode of Care: established 10/25/24 Rush in home exercise program. Patient will decrease pain rating by 2 points to meet minimal clinical important difference for numeric pain rating scale. Patient will increase active ROM of R shoulder to WNL to allow pt to to improve performance of ADLs. Patient will demonstrate increase in R shoulder ER strength to 4+/5 during manual muscle testing in order to improve function for basic self-care tasks, home management tasks, leisure / recreation skills, moderate to heavy functional tasks, and prior functional tasks. Perform reaching, lifting, and walking with decreased report of symptoms/pain in 4-6 weeks. Perform self care and ADLs without pain. Time Frame for Goals and Treatment : 12/25/24 Planned Interventions, Frequency, and Duration: Current Frequency: 1x/week Duration: 8 weeks Total Number of Visits Planned: 8 Planned Treatment Interventions: Therapeutic exercise (93725), Neuromuscular re-education (32879), Manual therapy (53766), Therapeutic activities (97197), Self-longterm management (70281), Patient/Family/Caregiver Education, Body Mechanics Training PLAN FOR NEXT VISIT: Assess HEP, progress if tolerated. May be candidate for manual to infraspinatus on R Patient demonstrates good understanding of plan of care and treatment. The above goals and plan of care were discussed and agreed upon by patient/family. SUBJECTIVE: B shoulder pain continues but less than it was last fall. Notes that reaching up, or behind his head hurt the most currently. Pain still on the outside of each shoulder and stays isolated there. Notes R is still slightly worse thna left, big change is no pain at rest, mostly notes that it is movement based. Also L plantar fasciitis for about a month when he went out to visit his son in [place]. Insiduous onset, no big walks or anything. Did drive out to [place] though. Has Afib, so unable to take NSAIDs. Pain mostly on the heel to arch of foot and worse first thing in the morning. Functional Limitations: rising from a chair, walking, standing, heavy exertion, lifting, physical activities, sleeping, reaching behind back, reaching overhead, use hand with arm at shoulder level Prior Level of Function: Independent without limitations Intake Information: Prescription present Pain: Pain Pain Level: 5 Pain Location: Shoulder - Right, Heel - Left Description: Aching, Sore, Sharp Frequency: Intermittent Post Treatment Pain Post Treatment Pain Level: No Change PROMIS Scales 10/25/2024 04/30/2024 Higher is Better Phys Func - T Score 42 (mild dysfunction) 43 (mild dysfunction) Phys Func - Percentile 21 24 Self-Eff Symptom - T Score 41 (Average) 41 (Average) Self-Eff Symptom - Percentile 18 18 Proxy-reported T-scores: mean of general population = 50. 5 points is clinically meaningfully difference Percentiles provide an indication of how the patient's score ranks in relation to the general population. Higher percentile rankings indicate better function/quality of life. 50th percentile is the average of the general population and indicates half of respondents had a worse score. OBJECTIVE MEASURES WITH LEVEL OF FUNCTION: UE AROM R UE AROM: minimal limitation in flexion, major limitation and painful arch in abduction, functional IR pain and moderate limitation, normal functional ER L UE AROM: Minimal limitations all motions LE AROM R Ankle Dorsiflexion: 12 Degrees L Ankle Dorsiflexion: 10 Degrees UE and Cervic (more content not included)...[facility]05-05-2025 History of Present illness Narrative* John Ornelas, PT - 10/25/2024 1:29 PM EDT Images from the original note were not included. Episode Visit Count: 1 Therapist That Will Accept/Oversee The Plan Of Care: John Ornelas Start of Care Date: 10/25/24 Onset Date: 06/23/24 Plan of Care Certification Date: 12/20/22 Next Certification Due Date: 01/24/23 Patient Identified by Name and Date of : Yes REHABILITATION AND SPORTS THERAPY PHYSICAL THERAPY EVALUATION PLAN OF CARE: Assessment: Andrea Piedra presents with chief complaint of L plantar fasciitis and B shoulder painthat interferes with rising from a chair, walking, standing, heavy exertion, lifting, physical activities, sleeping, reaching behind back, reaching overhead, use hand with arm at shoulder level . Thepatient presents with impairments in ADL's, overall function, range of motion, strength, symptom management, and tissue tenderness. PROMIS (Patient-Reported Outcomes Measurement Information System) scores were reviewed and identified as a rehabilitation concern. Prognosis for therapy is Fair due to: clinical presentation, multiple co- morbidities, chronic nature of impairments, limited tolerance to activity, poor past response to therapy intervention . The patient will benefit from skilled therapy services to meet the goals established for this plan of care as noted below. Goals for Episode of Care: established 10/25/24 Rush in home exercise program. Patient will decrease pain rating by 2 points to meet minimal clinical important difference for numeric pain rating scale. Patient will increase active ROM of R shoulder to WNL to allow pt to to improve performance of ADLs. Patient will demonstrate increase in R shoulder ER strength to 4+/5 during manual muscle testing inorder to improve function for basic self-care tasks, home management tasks, leisure / recreation skills, moderate to heavy functional tasks, and prior functional tasks. Perform reaching, lifting, and walking with decreased report of symptoms/pain in 4-6 weeks. Perform self care and ADLs without pain. Time Frame for Goals and Treatment : 12/25/24 Planned Interventions, Frequency, and Duration: Current Frequency: 1x/week Duration: 8 weeks Total Number of Visits Planned: 8 Planned Treatment Interventions: Therapeutic exercise (42646), Neuromuscular re- education (64929), Manual therapy (18136), Therapeutic activities (91362), Self- longterm management (51262), Patient/Family/Caregiver Education, Body Mechanics Training PLAN FOR NEXT VISIT: Assess HEP, progress if tolerated. May be candidate for manual to infraspinatus on R Patient demonstrates good understanding of plan of care and treatment. The above goals and plan of care were discussed and agreed upon by patient/family. SUBJECTIVE: B shoulder pain continues but less than it was last fall. Notes that reaching up, or behind his head hurt the most currently. Pain still on the outside of each shoulder and stays isolated there. Notes R is still slightly worse thna left, big change is no pain at rest, mostly notes that it is movement based. Also L plantar fasciitis for about a month when he went out to visit his son in [place]. Insiduous onset, no big walks or anything. Did drive out to [place] though. Has Afib, so unable to take NSAIDs. Pain mostly on the heel to arch of foot and worse first thing in the morning. Functional Limitations: rising from a chair, walking, standing, heavy exertion, lifting, physical activities, sleeping, reaching behind back, reaching overhead, use hand with arm at shoulder level Prior Level of Function: Independent without limitations Intake Information: Prescription present Pain: Pain Pain Level: 5 Pain Location: Shoulder - Right, Heel - Left Description: Aching, Sore, Sharp Frequency: Intermittent Post Treatment Pain Post Treatment Pain Level: No Change PROMIS Scales 10/25/2024 04/30/2024 Higher is Better Phys Func - T Score 42 (mild dysfunction) 43 (mild dysfunction) Phys Func - Percentile 21 24 Self-Eff Symptom - T Score 41 (Average) 41 (Average) Self-Eff Symptom - Percentile 18 18 Proxy-reported T-scores: mean of general population = 50. 5 points is clinically meaningfully difference Percentiles provide an indication of how the patient's score ranks in relation to the general population. Higher percentile rankings indicate better function/quality of life. 50th percentile is the average of the general population and indicates half of respondents had a worse score. OBJECTIVE MEASURES WITH LEVEL OF FUNCTION: UE AROM R UE AROM: minimal limitation in flexion, major limitation and painful arch in abduction, functional IR pain and moderate limitation, normal functional ER L UE AROM: Minimal limitations all motions LE AROM R Ankle Dorsiflexion: 12 Degrees L Ankle Dorsiflexion: 10 Degrees UE and Cervical Strength Strength Tested: Shoulder All L UE Strength: 4+/5 grossly R Shoulder Flexion: 4+/5 R Shoulder Abduction (C5): 4+/5 R Shoulder Internal Rotation: 5/5 R Shoulder External Rotation: 3+/5 LE Strength R LE Strength: 5/5 L LE Strength: 5/5 except 4/5 inversion Education: Education Learning/educational needs: Home exercise program, Plan of Care, Changes in Plan of Care, Body Mechanics TREATMENT: PT Treatment Interventions: Therapeutic Exercise, Self-Skilled Nursing Management Evaluation Therapeutic Exercise: 1: *Shoulder pulleys 3x10 2: *Wand ER 3x10 3: *Full can 3x10 4: *SL ER 3x10 5: Great toe extension stretch 3x30 sec 6: Long sitting gastroc and toe extension stretch with towel 3x30 sec Skilled Intervention: Patient was educated in proper exercise technique and purpose for exercises. Skilled judgment was used in selection of appropriate interventions. Provided written instruction for home exercise program to facilitate proper performance and compliance. Correct performance of therapeutic exercises was facilitated with verbal, visual, and tactile cuing. Self-Skilled Nursing Management: 1: Discussed powerstep orthotics for L foot Skilled Intervention: Skilled judgment in the selection of proper modification for activity of daily living/home management based on clinical presentation, deficits, and needs. Reviewed patient specific diagnosis in relation to activities of daily living/home management. Activity progression based on professional judgement. Billing * Evaluation Low Complexity: 1 Unit Therapeutic Exercise Treatment Minutes: 12 Self-Care/Home Management Treatment Minutes: 5 Skilled Treatment Time Minutes (timed and untimed codes): 35 Total Session Time (minutes): 35 Session Start Time : 904 Session Stop Time : 939 John Ornelas PT * John Ornelas PT - 10/25/2024 9:36 AM EDT Program_ID:[id number] Access Code: [email or web address] URL: [email or web address] Date: 10-25-2024 Prepared By: John Ornelas Program Notes Exercises - Seated Shoulder Flexion AAROM with Joseph Behind - 1 x daily - 7 x weekly - 3 sets - 10 reps - Standing Shoulder External Rotation AAROM with Dowel - 1 x daily - 7 x weekly - 3 sets - 10 reps - Standing Shoulder Scaption - 1 x daily - 7 x weekly - 3 sets - 10 reps - Sidelying Shoulder External Rotation - 1 x daily - 7 x weekly - 3 sets - 10 reps - Seated Plantar Fascia Stretch - 3 x daily - 7 x weekly - 1 sets - 3 reps - Long Sitting Plantar Fascia Stretch with Towel - 3 x daily - 7 x weekly - 1 sets - 3 reps [facility] [place] NoteHNO ID: [id number] Author: ALAN WARD MD Service: ? Author Type: Physician Type: Progress Notes Filed: 10/18/2024 15:06 Note Text: Patient presents with: Pain (foot): Left Anxiety HPI: Patient presents today for office visit for follow up. Had panic attacks and anxiety while out of town. Worries all the time when anything changes. He worries about taking meds. Discussed relaxation techniques. Discussed options of counseling. Discussed zoloft as an option. He will consider and let me know. When in [place]. Developed pain in his arch or heel. Worse when off the foot. No trauma. No redness or warmth. No swelling. No calf pain. Wearing arch support. MEDICATIONS: Current Outpatient Medications Medication Sig loratadine/pseudoephedrine (CLARITIN-D 24 HOUR ORAL) Take 1 tablet by mouth once daily. benazepril (LOTENSIN) 20 mg tablet Take 1 tablet by mouth two times a day. LORazepam (ATIVAN) 0.5 mg Take 1 tablet by mouth three times a day as needed (anxiety) for up to 90 days. flecainide (TAMBOCOR) 100 mg tablet Take 100 mg by mouth as needed. dilTIAZem CD (CARDIZEM CD, CARTIA XT) 240 mg 24 hr capsule Take 1 capsule by mouth once daily. aspirin, enteric coated (ECOTRIN LOW STRENGTH) 81 mg EC tablet Take 81 mg by mouth once daily. atorvastatin (LIPITOR) 20 mg tablet Take 1 tablet by mouth once daily. triamcinolone acetonide (NASACORT NASAL) Use in the nose. calcium carbonate (TUMS ORAL) Take 2 tablets by mouth as needed. hydroCHLOROthiazide (HYDRODIURIL, ESIDRIX) 12.5 mg tablet Take 12.5 mg by mouth twice daily. melatonin 3 mg capsules Take 3 mg by mouth at bedtime as needed. potassium chloride (K-TAB) 10 mEq tablet Take 10 mEq by mouth once daily. metoprolol tartrate, short acting, (LOPRESSOR) 100 mg tablet Take 100 mg by mouth twice daily. nystatin (MYCOSTATIN) 100,000 unit/mL suspension Take 5 mL by mouth four times daily. 1tsp swish in mouth for several minutes, then swallow (or expectorate) 4 times daily until gone. (Patient not taking: Reported on 09/13/2024) fexofenadine (SHANNAN) 180 mg tablet Take 180 mg by mouth once daily. (Patient not taking: Reported on 09/13/2024) No current facility-administered medications for this visit. ALLERGIES: ALLERGIES Allergen Reactions Vicodin [Hydrocodon* Mental Status Change PAST MEDICAL HISTORY Diagnosis Date Anticoagulant long-term use Arrhythmia At risk for stroke [id number] = 1 (HTN) Essential hypertension Essential hypertension Generalized anxiety disorder Hemorrhage of gastrointestinal tract, unspecified Hemorrhoids Paroxysmal atrial fibrillation (HCC) Rectal bleeding 09/2021 Sleep apnea does not use cpap. Snoring PAST SURGICAL HISTORY Procedure Laterality Date COLONOSCOPY FLX DX W/COLLJ SPEC WHEN PFRMD 07/11/2008 Colonoscopy COLONOSCOPY FLX DX W/COLLJ SPEC WHEN PFRMD 05/26/2018 Colonoscopy ESOPHAGOGASTRODUODENOSCOPY TRANSORAL DIAGNOSTIC 05/26/2018 EGD ESOPHAGOGASTRODUODENOSCOPY TRANSORAL DIAGNOSTIC 04/02/2022 EYE SURGERY HX HEMORRHOID: RUBBERBAND, SINGLE/MULTIPLE 10/04/2021 HEMORRHOID;BAND LIGAT, SNGL/MUL 04/02/2022 HEMORRHOIDECTOMY INTERNAL RUBBER BAND LIGATIONS 05/26/2018 PROCEDURE RM-COLONSCOPY W/BX 04/02/2022 FAMILY HISTORY Problem Relation Age of Onset Heart Mother Valve Replacement COPD Mother other (history of smoking) Mother Hypertension Father Kidney failure Father kidney disease - on dialysis Heart disease Father heart valve problem Hypertension Sister Hyperlipidemia Sister other (sudden infant ) Brother other (sudden infant ) Brother Thyroid Son Prostate Cancer No Family History none Social History Tobacco Use Smoking status: Never Smokeless tobacco: Never Vaping Use Vaping status: Never Used Substance Use Topics Alcohol use: Yes Comment: very occasional Drug use: No Reviewed current medications, allergies, past medical history, surgical history, family history and social history today. REVIEW OF SYSTEMS All other reviewed and negative other than HPI. VITALS: BP 122/70 Pulse 78 Wt 103.9 kg (229 lb) SpO2 97% BMI 32.86 kg/m? Last 4 Encounter Wt Readings: Date: Wt: 10/18/2024 103.9 kg (229 lb) 09/17/2024 104.3 kg (230 lb) 09/09/2024 103 kg (227 lb 1.2 oz) 09/06/2024 103 kg (227 lb) PHYSICAL EXAMINATION: General appearance: Well appearing, alert, in no acute distress, well-hydrated, well nourished. Skin: Skin color, texture, turgor normal, no suspicious rashes or lesions Head: Normocephalic, no masses, lesions, tenderness or abnormalities Extremities: No deformities, edema, skin discoloration, clubbing or cyanosis. Good capillary refill. , No cords. No calf tenderness. Robert's sign negative., tender over plantar fascia. Musculoskeletal: No joint swelling, deformity, or tenderness ASSESSMENT/PLAN: 1. Anxiety - ICD9: 300.00, ICD10: F41.9 (primary diagnosis) - (more content not included)...[facility]04-28-[facility]25 History of Present illness Narrative* Alan Ward MD - 10/18/2024 2:50 PM EDT Patient presents with: Pain (foot): Left Anxiety HPI: Patient presents today for office visit for follow up. Had panic attacks and anxiety while out of town. Worries all the time when anything changes. He worries about taking meds. Discussed relaxation techniques. Discussed options of counseling. Discussed zoloft as an option. He will consider and let me know. When in [place]. Developed pain in his arch or heel. Worse when off the foot. No trauma. No redness or warmth. No swelling. No calf pain. Wearing arch support. MEDICATIONS: Current Outpatient Medications Medication Sig loratadine/pseudoephedrine (CLARITIN-D 24 HOUR ORAL) Take 1 tablet by mouth once daily. benazepril (LOTENSIN) 20 mg tablet Take 1 tablet by mouth two times a day. LORazepam (ATIVAN) 0.5 mg Take 1 tablet by mouth three times a day as needed (anxiety) for up to 90days. flecainide (TAMBOCOR) 100 mg tablet Take 100 mg by mouth as needed. dilTIAZem CD (CARDIZEM CD, CARTIA XT) 240 mg 24 hr capsule Take 1 capsule by mouth once daily. aspirin, enteric coated (ECOTRIN LOW STRENGTH) 81 mg EC tablet Take 81 mg by mouth once daily. atorvastatin (LIPITOR) 20 mg tablet Take 1 tablet by mouth once daily. triamcinolone acetonide (NASACORT NASAL) Use in the nose. calcium carbonate (TUMS ORAL) Take 2 tablets by mouth as needed. hydroCHLOROthiazide (HYDRODIURIL, ESIDRIX) 12.5 mg tablet Take 12.5 mg by mouth twice daily. melatonin 3 mg capsules Take 3 mg by mouth at bedtime as needed. potassium chloride (K-TAB) 10 mEq tablet Take 10 mEq by mouth once daily. metoprolol tartrate, short acting, (LOPRESSOR) 100 mg tablet Take 100 mg by mouth twice daily. nystatin (MYCOSTATIN) 100,000 unit/mL suspension Take 5 mL by mouth four times daily. 1tsp swish inmouth for several minutes, then swallow (or expectorate) 4 times daily until gone. (Patient not taking: Reported on 09/13/2024) fexofenadine (SHANNAN) 180 mg tablet Take 180 mg by mouth once daily. (Patient not taking: Reportedon 09/13/2024) No current facility-administered medications for this visit. ALLERGIES: ALLERGIES Allergen Reactions Vicodin [Hydrocodon* Mental Status Change PAST MEDICAL HISTORY Diagnosis Date Anticoagulant long-term use Arrhythmia At risk for stroke [id number] = 1 (HTN) Essential hypertension Essential hypertension Generalized anxiety disorder Hemorrhage of gastrointestinal tract, unspecified Hemorrhoids Paroxysmal atrial fibrillation (HCC) Rectal bleeding 09/2021 Sleep apnea does not use cpap. Snoring PAST SURGICAL HISTORY Procedure Laterality Date COLONOSCOPY FLX DX W/COLLJ SPEC WHEN PFRMD 07/11/2008 Colonoscopy COLONOSCOPY FLX DX W/COLLJ SPEC WHEN PFRMD 05/26/2018 Colonoscopy ESOPHAGOGASTRODUODENOSCOPY TRANSORAL DIAGNOSTIC 05/26/2018 EGD ESOPHAGOGASTRODUODENOSCOPY TRANSORAL DIAGNOSTIC 04/02/2022 EYE SURGERY HX HEMORRHOID: RUBBERBAND, SINGLE/MULTIPLE 10/04/2021 HEMORRHOID;BAND LIGAT, SNGL/MUL 04/02/2022 HEMORRHOIDECTOMY INTERNAL RUBBER BAND LIGATIONS 05/26/2018 PROCEDURE RM-COLONSCOPY W/BX 04/02/2022 FAMILY HISTORY Problem Relation Age of Onset Heart Mother Valve Replacement COPD Mother other (history of smoking) Mother Hypertension Father Kidney failure Father kidney disease - on dialysis Heart disease Father heart valve problem Hypertension Sister Hyperlipidemia Sister other (sudden infant ) Brother other (sudden ) Brother Thyroid Son Prostate Cancer No Family History none Social History Tobacco Use Smoking status: Never Smokeless tobacco: Never Vaping Use Vaping status: Never Used Substance Use Topics Alcohol use: Yes Comment: very occasional Drug use: No Reviewed current medications, allergies, past medical history, surgical history, family history andsocial history today. REVIEW OF SYSTEMS All other reviewed and negative other than HPI. VITALS: BP 122/70 Pulse 78 Wt 103.9 kg (229 lb) SpO2 97% BMI 32.86 kg/m Last 4 Encounter Wt Readings: Date: Wt: 10/18/2024 103.9 kg (229 lb) 09/17/2024 104.3 kg (230 lb) 09/09/2024 103 kg (227 lb 1.2 oz) 09/06/2024 103 kg (227 lb) PHYSICAL EXAMINATION: General appearance: Well appearing, alert, in no acute distress, well-hydrated, well nourished. Skin: Skin color, texture, turgor normal, no suspicious rashes or lesions Head: Normocephalic, no masses, lesions, tenderness or abnormalities Extremities: No deformities, edema, skin discoloration, clubbing or cyanosis. Good capillary refill. , No cords. No calf tenderness. Robert's sign negative., tender over plantar fascia. Musculoskeletal: No joint swelling, deformity, or tenderness ASSESSMENT/PLAN: 1. Anxiety - ICD9: 300.00, ICD10: F41.9 (primary diagnosis) - will consider meds or counseling. 2. Foot pain, left - ICD9: 729.5, ICD10: M79.672 - ice and stretching. Consider poidatry. - CONSULT TO PHYSICAL THERAPY 3. Plantar fasciitis - ICD9: 728.71, ICD10: M72.2 - CONSULT TO PHYSICAL THERAPY Alan Ward MD documented [facility] [place] Telephone encounter Note * Telephone Encounter - Sandi Aquino MA - 10/15/2024 9:32 AM EDT Scan on 10/14/2024 10:15 AM by Provider, External, JAYCEE: Platelet count [facility]04-25-2025 Miscellaneous Notes* Telephone Encounter - Sandi Aquino MA - 10/15/2024 9:32 AM EDT Scan on 10/14/2024 10:15 AM by Provider, JAYCEE Bergeron: Platelet count documented in this encounter[facility] [place]-28-[facility]25 NoteHNO ID: [id number] Author: ALAN WARD MD Service: ? Author Type: Physician Type: Progress Notes Filed: 09/17/2024 09:15 Note Text: Patient presents with: Nasal Congestion Sore Throat HPI: Patient presents today for office visit for acute illness follow up. Seen in [facility] on 09/09/24 with complaints of sore throat. See note: Patient is a 64-year-old male who complains of sore throat that he has been experiencing for the past 4 days. Patient denies fever, chills, body aches, congestion, ear pain, cough or other illness symptoms. Patient states that he was seen by his primary care physician on Friday and at that time experienced no symptoms and states he was feeling in good health. Patient does have a 4-year-old grandson at home who does attend daycare. Patient states that he did develop influenza type A approximately 1 month ago and explains that his influenza symptoms did resolve after approximately 1 week. Rapid strep test was negative. Today complains of constant nasal congestion and drainage that started a couple days after being seen in [facility]. States the constant drainage is irritating back of his throat. Still with mild discomfort in throat. Thinking it's from the drainage. No sneezing. Slight cough with some production. Denies chest pain and shortness of breath. Denies any fever or body aches. No headaches. Has been taking Shannan regularly. Switched in the last couple days to Claritin. No relief with either med. Has not tried anything else OTC. Bp is well controlled. No palpitations. Still seeing cardiology. Moods are doing well. Aware of risks of benzo's. Use is prn. Oarrs done. No misuse or abuse. Tolerating meds. Has seen ortho Has appt in Sept MEDICATIONS: Current Outpatient Medications Medication Sig loratadine/pseudoephedrine (CLARITIN-D 24 HOUR ORAL) Take 1 tablet by mouth once daily. benazepril (LOTENSIN) 20 mg tablet Take 1 tablet by mouth two times a day. LORazepam (ATIVAN) 0.5 mg Take 1 tablet by mouth three times a day as needed (anxiety) for up to 90 days. flecainide (TAMBOCOR) 100 mg tablet Take 100 mg by mouth as needed. dilTIAZem CD (CARDIZEM CD, CARTIA XT) 240 mg 24 hr capsule Take 1 capsule by mouth once daily. aspirin, enteric coated (ECOTRIN LOW STRENGTH) 81 mg EC tablet Take 81 mg by mouth once daily. atorvastatin (LIPITOR) 20 mg tablet Take 1 tablet by mouth once daily. triamcinolone acetonide (NASACORT NASAL) Use in the nose. calcium carbonate (TUMS ORAL) Take 2 tablets by mouth as needed. hydroCHLOROthiazide (HYDRODIURIL, ESIDRIX) 12.5 mg tablet Take 12.5 mg by mouth twice daily. melatonin 3 mg capsules Take 3 mg by mouth at bedtime as needed. potassium chloride (K-TAB) 10 mEq tablet Take 10 mEq by mouth once daily. metoprolol tartrate, short acting, (LOPRESSOR) 100 mg tablet Take 100 mg by mouth twice daily. nystatin (MYCOSTATIN) 100,000 unit/mL suspension Take 5 mL by mouth four times daily. 1tsp swish in mouth for several minutes, then swallow (or expectorate) 4 times daily until gone. (Patient not taking: Reported on 09/13/2024) fexofenadine (SHANNAN) 180 mg tablet Take 180 mg by mouth once daily. (Patient not taking: Reported on 09/13/2024) No current facility-administered medications for this visit. ALLERGIES: ALLERGIES Allergen Reactions Vicodin [Hydrocodon* Mental Status Change PAST MEDICAL HISTORY Diagnosis Date Anticoagulant long-term use Arrhythmia At risk for stroke [id number] = 1 (HTN) Essential hypertension Essential hypertension Generalized anxiety disorder Hemorrhage of gastrointestinal tract, unspecified Hemorrhoids Paroxysmal atrial fibrillation (HCC) Rectal bleeding 09/2021 Sleep apnea does not use cpap. Snoring PAST SURGICAL HISTORY Procedure Laterality Date COLONOSCOPY FLX DX W/COLLJ SPEC WHEN PFRMD 07/11/2008 Colonoscopy COLONOSCOPY FLX DX W/COLLJ SPEC WHEN PFRMD 05/26/2018 Colonoscopy ESOPHAGOGASTRODUODENOSCOPY TRANSORAL DIAGNOSTIC 05/26/2018 EGD ESOPHAGOGASTRODUODENOSCOPY TRANSORAL DIAGNOSTIC 04/02/2022 EYE SURGERY HX HEMORRHOID: RUBBERBAND, SINGLE/MULTIPLE 10/04/2021 HEMORRHOID;BAND LIGAT, SNGL/MUL 04/02/2022 HEMORRHOIDECTOMY INTERNAL RUBBER BAND LIGATIONS 05/26/2018 PROCEDURE RM-COLONSCOPY W/BX 04/02/2022 FAMILY HISTORY Problem Relation Age of Onset Heart Mother Valve Replacement COPD Mother other (history of smoking) Mother Hypertension Father Kidney failure Father kidney disease - on dialysis Heart disease Father heart valve problem Hypertension Sister Hyperlipidemia Sister other (sudden ) Brother other (sudden ) Brother Thyroid Son Prostate Cancer No Family History none Social History Tobacco Use Smoking status: Never Smokeless tobacco: Never Vaping Use Vaping status: Never Used Substance Use Topics Alcohol use: Yes Comment: very occas (more content not included)...[facility] 09-17-2024 History of Present illness Narrative* Alan Ward MD - 09/17/2024 8:46 AM EDT Patient presents with: Nasal Congestion Sore Throat HPI: Patient presents today for office visit for acute illness follow up. Seen in [facility] on 09/09/24 with complaints of sore throat. See note: Patient is a 64-year-old male who complains of sore throat that he has been experiencing for the past 4 days. Patient denies fever, chills, body aches, congestion, ear pain, cough or other illness symptoms. Patient states that he was seen by his primary care physician on Friday and at that time experienced no symptoms and states he was feeling in good health. Patient does have a 4-year-old grandson at home who does attend daycare. Patient states that he did develop influenza type A approximately 1 month ago and explains that his influenza symptoms did resolve after approximately 1 week. Rapid strep test was negative. Today complains of constant nasal congestion and drainage that started a couple days after being seen in [facility]. States the constant drainage is irritating back of his throat. Still with mild discomfort in throat. Thinking it's from the drainage. No sneezing. Slight cough with some production. Denies chest pain and shortness of breath. Denies any fever or body aches. No headaches. Has been taking Shannan regularly. Switched in the last couple days to Claritin. No relief with either med. Has not tried anything else OTC. Bp is well controlled. No palpitations. Still seeing cardiology. Moods are doing well. Aware of risks of benzo's. Use is prn. Oarrs done. No misuse or abuse. Tolerating meds. Has seen ortho Has appt in Sept MEDICATIONS: Current Outpatient Medications Medication Sig loratadine/pseudoephedrine (CLARITIN-D 24 HOUR ORAL) Take 1 tablet by mouth once daily. benazepril (LOTENSIN) 20 mg tablet Take 1 tablet by mouth two times a day. LORazepam (ATIVAN) 0.5 mg Take 1 tablet by mouth three times a day as needed (anxiety) for up to 90days. flecainide (TAMBOCOR) 100 mg tablet Take 100 mg by mouth as needed. dilTIAZem CD (CARDIZEM CD, CARTIA XT) 240 mg 24 hr capsule Take 1 capsule by mouth once daily. aspirin, enteric coated (ECOTRIN LOW STRENGTH) 81 mg EC tablet Take 81 mg by mouth once daily. atorvastatin (LIPITOR) 20 mg tablet Take 1 tablet by mouth once daily. triamcinolone acetonide (NASACORT NASAL) Use in the nose. calcium carbonate (TUMS ORAL) Take 2 tablets by mouth as needed. hydroCHLOROthiazide (HYDRODIURIL, ESIDRIX) 12.5 mg tablet Take 12.5 mg by mouth twice daily. melatonin 3 mg capsules Take 3 mg by mouth at bedtime as needed. potassium chloride (K-TAB) 10 mEq tablet Take 10 mEq by mouth once daily. metoprolol tartrate, short acting, (LOPRESSOR) 100 mg tablet Take 100 mg by mouth twice daily. nystatin (MYCOSTATIN) 100,000 unit/mL suspension Take 5 mL by mouth four times daily. 1tsp swish inmouth for several minutes, then swallow (or expectorate) 4 times daily until gone. (Patient not taking: Reported on 09/13/2024) fexofenadine (SHANNAN) 180 mg tablet Take 180 mg by mouth once daily. (Patient not taking: Reportedon 09/13/2024) No current facility-administered medications for this visit. ALLERGIES: ALLERGIES Allergen Reactions Vicodin [Hydrocodon* Mental Status Change PAST MEDICAL HISTORY Diagnosis Date Anticoagulant long-term use Arrhythmia At risk for stroke [id number] = 1 (HTN) Essential hypertension Essential hypertension Generalized anxiety disorder Hemorrhage of gastrointestinal tract, unspecified Hemorrhoids Paroxysmal atrial fibrillation (HCC) Rectal bleeding 09/2021 Sleep apnea does not use cpap. Snoring PAST SURGICAL HISTORY Procedure Laterality Date COLONOSCOPY FLX DX W/COLLJ SPEC WHEN PFRMD 07/11/2008 Colonoscopy COLONOSCOPY FLX DX W/COLLJ SPEC WHEN PFRMD 05/26/2018 Colonoscopy ESOPHAGOGASTRODUODENOSCOPY TRANSORAL DIAGNOSTIC 05/26/2018 EGD ESOPHAGOGASTRODUODENOSCOPY TRANSORAL DIAGNOSTIC 04/02/2022 EYE SURGERY HX HEMORRHOID: RUBBERBAND, SINGLE/MULTIPLE 10/04/2021 HEMORRHOID;BAND LIGAT, SNGL/MUL 04/02/2022 HEMORRHOIDECTOMY INTERNAL RUBBER BAND LIGATIONS 05/26/2018 PROCEDURE RM-COLONSCOPY W/BX 04/02/2022 FAMILY HISTORY Problem Relation Age of Onset Heart Mother Valve Replacement COPD Mother other (history of smoking) Mother Hypertension Father Kidney failure Father kidney disease - on dialysis Heart disease Father heart valve problem Hypertension Sister Hyperlipidemia Sister other (sudden ) Brother other (sudden infant ) Brother Thyroid Son Prostate Cancer No Family History none Social History Tobacco Use Smoking status: Never Smokeless tobacco: Never Vaping Use Vaping status: Never Used Substance Use Topics Alcohol use: Yes Comment: very occasional Drug use: No Reviewed current medications, allergies, past medical history, surgical history, family history andsocial history today. REVIEW OF SYSTEMS All other reviewed and negative other than HPI. HEALTH MAINTENANCE: Reviewed health maintenance issues today and recommended the following in detail. BP Controlled (<130/80) Never done VITALS: BP 116/72 Pulse 61 Temp 36.6 C (97.8 F) Ht 177.8 cm (5' 10") Wt 104.3 kg (230 lb) SpO2 98% BMI 33.00 kg/m Last 4 Encounter Wt Readings: Date: Wt: 09/09/2024 103 kg (227 lb 1.2 oz) 09/06/2024 103 kg (227 lb) 08/24/2024 104.7 kg (230 lb 13.2 oz) 08/16/2024 103.9 kg (229 lb) PHYSICAL EXAMINATION: General appearance: Well appearing, alert, in no acute distress, well-hydrated, well nourished. Skin: Skin color, texture, turgor normal, no suspicious rashes or lesions Head: Normocephalic, no masses, lesions, tenderness or abnormalities Eyes: Anicteric sclera. Pupils are equally round and reactive to light. Extraocular movements are intact. Ears: External ears normal, canals clear Nose/Sinuses: Nares normal, septum midline, mucosa normal, no drainage or sinus tenderness Oropharynx: Lips, mucosa, and tongue normal, teeth and gums normal, oropharynx normal Neck: Supple, no adenopathy; thyroid symmetric, normal size, no bruits Lungs: Lungs clear to auscultation. No wheezing, rhonchi, rales Heart: RRR without murmur, gallop, or rubs. No ectopy Abdomen: Normal abdominal exam, Abdomen soft, non-tender. Bowel sounds normal. No masses, organomegaly Extremities: No deformities, edema, skin discoloration, clubbing or cyanosis. Good capillary refill. Musculoskeletal: No joint swelling, deformity, or tenderness Peripheral pulses: Normal Neuro: Negative. ASSESSMENT/PLAN: 1. Acute non-recurrent sinusitis, unspecified location - ICD9: 461.9, ICD10: J01.90 (primary diagnosis) - Discussed risks and benefits of new medication with the patient. Advised them to call if any sideeffects or questions. Red flags for re-assessment reviewed with patient in detail. Call if symptoms worsen at all or if not better in one to two weeks Reviewed diagnosis and treatment options in detail. Questions were answered. Patient expressed understanding of treatment plan. - AMOXICILLIN 875 MG TABLET 2. Hyperglycemia - ICD9: 790.29, ICD10: R73.9 - stable. 3. Mixed hyperlipidemia - ICD9: 272.2, ICD10: E78.2 - Controlled - Continue current medications - Counseled on healthy diet and regular exercise 4. Essential hypertension - ICD9: 401.9, ICD10: I10 - Controlled - Continue current medications Alan Ward MD Keep next appt [facility] [place] NoteHNO ID: [id number] Author: ARMAND MCFADDEN MD Service: ? Author Type: Physician Type: Progress Notes Filed: 09/13/2024 12:32 Note Text: Armand Mcfadden MD Department of Orthopaedics [facility] [address] [place] [address] Dept: [phone] Dept September 13, 2024 CHIEF COMPLAINT: New and Pain of the Left Shoulder and New and Pain of the Right Shoulder HPI Patient presents as referral from Dr. Ward for bilateral shoulder pain that has been worsening over the last year-year and a half. Right shoulder worse than left. Reaching up, reaching back, throwing, and pitting hands behind head makes the pain worse. Has tried PT with minimal improvement, also was on 5 days of Prednisone at the end of last month. Pain was worse last summer when he was more active. X-Rays done 03/08/24 AMB ROOMING INTAKE FLOWSHEET DATA Pain Pain Level: 2 (8/10 with certain movements) Pain Location: Other: See Comment (bilateral shoulders) Description: Burning, Sharp, Aching Duration Amount of Time: 1.5 Duration Units: Years Frequency: Intermittent Intervention/Comfort measure: Relaxation, Reposition ASSESSMENT: M25.511, G89.29, M25.512 Chronic pain of both shoulders (primary encounter diagnosis) M25.819 Shoulder impingement PLAN: Patient is presenting with impingement signs of both shoulders, right greater than left. Possibly result of some calcific tendinitis but is difficult to tell based on just plain films if the calcifications are acute or chronic. He reports that he is doing a little bit better, therefore he would like to try some therapy again. We did discuss possible cortisone injections which I would stagger based on his mild diabetes. Ultimately, MRIs may be appropriate but that does not appear to be indicated at this time. Will continue to monitor patient for Chronic pain of both shoulders (primary encounter diagnosis) Shoulder impingement, patient to schedule visit as per follow up discussed. FOLLOW UP INSTRUCTIONS: As above Mr. Andrea Piedra was advised as to contrast therapies and/or to take analgesics/anti-inflammatories as needed and all contraindications were reviewed. OBJECTIVE: Mr. Andrea Piedra is a pleasant 64 year old in no apparent distress. Gen:There were no vitals taken for this visit. nl development, non obese, no deformities ENT: Normocephalic, normal hearing, moist mucosa CV: Pulses:Radial= 2+ and symmetric, capillary refill < 2 secs, no peripheral edema/varicosities Skin: no rash, bruising or lesions. Good turgor. Psych: cooperative and appropriate, alert and oriented x 3, good mood and affect. Musculoskeletal: Forward elevation was symmetrical in about 170 degrees with some mild tightness at endrange. External rotation of the right is about 60, on the left is 70. Positive impingement signs on the right and left. Positive tender palpation, mildly at the rotator cuff insertion right greater than left. Neurovascular exam is intact. IMAGING: IMPRESSION: Degenerative changes as described. Last Marker: [facility] Transcribe Date/Time: Mar 10 2024 9:09P Dictated by : BRANDON PONCE MD This examination was interpreted and the report reviewed and electronically signed by: BRANDON PONCE MD on Mar 10 2024 9:10PM EST Results-Findings * * *Final Report* * * DATE OF EXAM: Mar 08 2024 11:26AM WOX [id number] - XR SHLDR >/=3V AP/VALERIA AP/OTHR RT / PROCEDURE REASON: Tendinitis of shoulder, unspecified laterality * * * * Physician Interpretation * * * * EXAMINATION / TECHNIQUE: XR SHLDR >/=3V AP/VALERIA AP/OTHR RT, XR SHLDR >/=3V AP/VALERIA AP/OTHR LT HISTORY: Bilateral lateral shoulder pain x 1 year without injury Tendinitis of shoulder, unspecified laterality COMPARISON: None. RESULT: No acute fracture or malalignment in either shoulder. The glenohumeral joint are preserved. 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 Insertional rotator cuff calcific tendinosis bilaterally. Supporting Subjective Information Below: Past Medical History: PAST MEDICAL HISTORY Diagnosis Date Anticoagulant long-term use Arrhythmia At risk for stroke [id number] = 1 (HTN) Essential hypertension Essential hypertension Generalized anxiety disorder Hemorrhage of gastrointestinal tract, unspecified Hemorrhoids Paroxysmal atrial fibrillation (HCC) Rectal bleeding 09/2021 Sleep apnea does not use cpap. Snoring Past Surgical History: PAST SURGICAL HISTORY Procedure Laterality Date COLONOSCOPY FLX DX W/COLLJ SPEC WHEN PFRMD 07/11/2008 Colonoscopy COLONOSCOPY FLX DX W/COLLJ SPEC WHEN PFRMD 05/26/2018 Colonoscopy ESOPHAGOGASTRODUODENOSCOPY TRANSORAL DIAGNOSTIC 05/26/2018 EGD ESOPHAGOGASTRODUODENOSCOPY TRANSORAL DIAGNOSTIC 04/02/2022 EYE SURGERY HX HEMORRHOID: RUBBERBAND, SINGLE/MULTIPLE 10/04/2021 HEMORRHOID;BAND LIGAT, SNGL/MUL 04/02/2022 HEMORRH (more content not included)...[facility]03-24-2025 History of Present illness Narrative* Armand Mcfadden MD - 09/13/2024 8:11 AM EDT Armand Mcfadden MD Department of Orthopaedics [facility] [address] [facility] [address] Dept: [phone] Dept September 13, 2024 CHIEF COMPLAINT: New and Pain of the Left Shoulder and New and Pain of the Right Shoulder HPI Patient presents as referral from Dr. Ward for bilateral shoulder pain that has been worsening overthe last year-year and a half. Right shoulder worse than left. Reaching up, reaching back, throwing, and pitting hands behind head makes the pain worse. Has tried PT with minimal improvement, also was on 5 days of Prednisone at the end of last month. Pain was worse last summer when he was more active. X-Rays done 03/08/24 AMB ROOMING INTAKE FLOWSHEET DATA Pain Pain Level: 2 (8/10 with certain movements) Pain Location: Other: See Comment (bilateral shoulders) Description: Burning, Sharp, Aching Duration Amount of Time: 1.5 Duration Units: Years Frequency: Intermittent Intervention/Comfort measure: Relaxation, Reposition ASSESSMENT: M25.511, G89.29, M25.512 Chronic pain of both shoulders (primary encounter diagnosis) M25.819 Shoulder impingement PLAN: Patient is presenting with impingement signs of both shoulders, right greater than left. Possibly result of some calcific tendinitis but is difficult to tell based on just plain films if the calcifications are acute or chronic. He reports that he is doing a little bit better, therefore he would like to try some therapy again. We did discuss possible cortisone injections which I would stagger based on his mild diabetes. Ultimately, MRIs may be appropriate but that does not appear to be indicatedat this time. Will continue to monitor patient for Chronic pain of both shoulders (primary encounter diagnosis) Shoulder impingement, patient to schedule visit as per follow up discussed. FOLLOW UP INSTRUCTIONS: As above Mr. Andrea Piedra was advised as to contrast therapies and/or to take analgesics/anti-inflammatories as needed and all contraindications were reviewed. OBJECTIVE: Mr. Andrea Piedra is a pleasant 64 year old in no apparent distress. Gen:There were no vitals taken for this visit. nl development, non obese, no deformities ENT: Normocephalic, normal hearing, moist mucosa CV: Pulses:Radial= 2+ and symmetric, capillary refill < 2 secs, no peripheral edema/varicosities Skin: no rash, bruising or lesions. Good turgor. Psych: cooperative and appropriate, alert and oriented x 3, good mood and affect. Musculoskeletal: Forward elevation was symmetrical in about 170 degrees with some mild tightness at endrange. External rotation of the right is about 60, on the left is 70. Positive impingement signs on the right andleft. Positive tender palpation, mildly at the rotator cuff insertion right greater than left. Neurovascular exam is intact. IMAGING: IMPRESSION: Degenerative changes as described. Last Marker: [facility] Transcribe Date/Time: Mar 10 2024 9:09P Dictated by : BRANDON PONCE MD This examination was interpreted and the report reviewed and electronically signed by: BRANDON PONCE MD on Mar 10 2024 9:10PM EST Results-Findings * * *Final Report* * * DATE OF EXAM: Mar 08 2024 11:26AM WOX [id number] - XR SHLDR >/=3V AP/VALERIA AP/OTHR RT / PROCEDURE REASON: Tendinitis of shoulder, unspecified laterality * * * * Physician Interpretation * * * * EXAMINATION / TECHNIQUE: XR SHLDR >/=3V AP/VALERIA AP/OTHR RT, XR SHLDR >/=3V AP/VALERIA AP/OTHR LT HISTORY: Bilateral lateral shoulder pain x 1 year without injury Tendinitis of shoulder, unspecified laterality COMPARISON: None. RESULT: No acute fracture or malalignment in either shoulder. The glenohumeral joint are preserved. 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 Insertional rotator cuff calcific tendinosis bilaterally. Supporting Subjective Information Below: Past Medical History: PAST MEDICAL HISTORY Diagnosis Date Anticoagulant long-term use Arrhythmia At risk for stroke [id number] = 1 (HTN) Essential hypertension Essential hypertension Generalized anxiety disorder Hemorrhage of gastrointestinal tract, unspecified Hemorrhoids Paroxysmal atrial fibrillation (HCC) Rectal bleeding 09/2021 Sleep apnea does not use cpap. Snoring Past Surgical History: PAST SURGICAL HISTORY Procedure Laterality Date COLONOSCOPY FLX DX W/COLLJ SPEC WHEN PFRMD 07/11/2008 Colonoscopy COLONOSCOPY FLX DX W/COLLJ SPEC WHEN PFRMD 05/26/2018 Colonoscopy ESOPHAGOGASTRODUODENOSCOPY TRANSORAL DIAGNOSTIC 05/26/2018 EGD ESOPHAGOGASTRODUODENOSCOPY TRANSORAL DIAGNOSTIC 04/02/2022 EYE SURGERY HX HEMORRHOID: RUBBERBAND, SINGLE/MULTIPLE 10/04/2021 HEMORRHOID;BAND LIGAT, SNGL/MUL 04/02/2022 HEMORRHOIDECTOMY INTERNAL RUBBER BAND LIGATIONS 05/26/2018 PROCEDURE RM-COLONSCOPY W/BX 04/02/2022 Family History: FAMILY HISTORY Problem Relation Age of Onset Heart Mother Valve Replacement COPD Mother other (history of smoking) Mother Hypertension Father Kidney failure Father kidney disease - on dialysis Heart disease Father heart valve problem Hypertension Sister Hyperlipidemia Sister other (sudden ) Brother other (sudden infant ) Brother Thyroid Son Prostate Cancer No Family History none Social History: Social History Tobacco Use Smoking status: Never Smokeless tobacco: Never Vaping Use Vaping status: Never Used Substance Use Topics Alcohol use: Yes Comment: very occasional Drug use: No Medications: Current Outpatient Medications Medication Sig loratadine/pseudoephedrine (CLARITIN-D 24 HOUR ORAL) Take 1 tablet by mouth once daily. benazepril (LOTENSIN) 20 mg tablet Take 1 tablet by mouth two times a day. LORazepam (ATIVAN) 0.5 mg Take 1 tablet by mouth three times a day as needed (anxiety) for up to 90days. flecainide (TAMBOCOR) 100 mg tablet Take 100 mg by mouth as needed. dilTIAZem CD (CARDIZEM CD, CARTIA XT) 240 mg 24 hr capsule Take 1 capsule by mouth once daily. aspirin, enteric coated (ECOTRIN LOW STRENGTH) 81 mg EC tablet Take 81 mg by mouth once daily. atorvastatin (LIPITOR) 20 mg tablet Take 1 tablet by mouth once daily. triamcinolone acetonide (NASACORT NASAL) Use in the nose. calcium carbonate (TUMS ORAL) Take 2 tablets by mouth as needed. hydroCHLOROthiazide (HYDRODIURIL, ESIDRIX) 12.5 mg tablet Take 12.5 mg by mouth twice daily. melatonin 3 mg capsules Take 3 mg by mouth at bedtime as needed. potassium chloride (K-TAB) 10 mEq tablet Take 10 mEq by mouth once daily. metoprolol tartrate, short acting, (LOPRESSOR) 100 mg tablet Take 100 mg by mouth twice daily. nystatin (MYCOSTATIN) 100,000 unit/mL suspension Take 5 mL by mouth four times daily. 1tsp swish inmouth for several minutes, then swallow (or expectorate) 4 times daily until gone. (Patient not taking: Reported on 09/13/2024) fexofenadine (SHANNAN) 180 mg tablet Take 180 mg by mouth once daily. (Patient not taking: Reportedon 09/13/2024) No current facility-administered medications for this visit. Allergies: Vicodin [Hydrocodone-Acetaminophen] ROS: General (negative for fatigue, malaise, weight loss/gain) HEENT (negative for headache, earache, recent vision changes, sinus pain, sore throat) Respiratory (no recent shortness of breath, hemoptysis) CV (negative for chest tightness, palpitations) Musculoskeletal (see HPI) Psych (no depression, anxiety) Armand Mcfadden MD documented [facility] [place] Instructions* Patient Instructions* Katrin Meléndez PA-C - 09/09/2024 7:22 AM EDT MIX HYDROGEN PEROXIDE 50% WITH WATER 50% AND GARGLE AND SPIT. DO NOT SWALLOW. REPEAT EVERY 4 HOURS. documented in this encounterSelect [facility] [place]-2025 NoteHNO ID: [id number] Author: KATRIN MELÉNDEZ PA-C Service: ? Author Type: Physician Lehr Stripper Type: Progress Notes Filed: 09/09/2024 07:24 Note Text: This note was created using [employer]GO STUDI[employer]riter. Subjective Andrea Piedra is a 64 year old male. Patient is a 64-year-old male who complains of sore throat that he has been experiencing for the past 4 days. Patient denies fever, chills, body aches, congestion, ear pain, cough or other illness symptoms. Patient states that he was seen by his primary care physician on Friday and at that time experienced no symptoms and states he was feeling in good health. Patient does have a 4-year-old grandson at home who does attend daycare. Patient states that he did develop influenza type A approximately 1 month ago and explains that his influenza symptoms did resolve after approximately 1 week. Sore Throat Review of Systems HENT: Positive for sore throat. All other systems reviewed and are negative. Objective BP 138/81 Pulse 62 Temp 36.1 ?C (97 ?F) Resp 20 Wt 103 kg (227 lb 1.2 oz) SpO2 99% BMI 32.58 kg/m? Physical Exam Vitals and nursing note reviewed. Constitutional: Appearance: Normal appearance. He is normal weight. HENT: Head: Normocephalic and atraumatic. Right Ear: Tympanic membrane, ear canal and external ear normal. Left Ear: Tympanic membrane, ear canal and external ear normal. Nose: Nose normal. Mouth/Throat: Mouth: Mucous membranes are moist. Pharynx: Oropharynx is clear. Eyes: Extraocular Movements: Extraocular movements intact. Conjunctiva/sclera: Conjunctivae normal. Pupils: Pupils are equal, round, and reactive to light. Cardiovascular: Rate and Rhythm: Normal rate and regular rhythm. Pulses: Normal pulses. Heart sounds: Normal heart sounds. Pulmonary: Effort: Pulmonary effort is normal. Breath sounds: Normal breath sounds. Musculoskeletal: Cervical back: Normal range of motion and neck supple. Skin: General: Skin is warm and dry. Capillary Refill: Capillary refill takes less than 2 seconds. Neurological: General: No focal deficit present. Mental Status: He is alert and oriented to person, place, and time. Psychiatric: Mood and Affect: Mood normal. Behavior: Behavior normal. Thought Content: Thought content normal. Judgment: Judgment normal. Assessment and Plan Physical exam findings as noted above. Rapid strep test is negative. Supportive care instructions were discussed and the patient verbalizes good understanding of same. CLINICAL IMPRESSION: Sore Throat ASSESSMENT/PLAN: 1. Sore throat - ICD9: 462, ICD10: J02.9 - STREP A MOLECULAR (POC) [facility] of Present illness Narrative* Katrin Meléndez PA-C - 09/09/2024 7:12 AM EDT This note was created using ABBYY Language Servicester. Subjective Andrea Piedra is a 64 year old male. Patient is a 64-year-old male who complains of sore throat that he has been experiencing for the past 4 days. Patient denies fever, chills, body aches, congestion, ear pain, cough or other illness symptoms. Patient states that he was seen by his primary care physician on Friday and at that time experienced no symptoms and states he was feeling in good health. Patient does have a 4-year-old grandson at home who does attend daycare. Patient states that he did develop influenza type A approximately 1 month ago and explains that his influenza symptoms did resolve after approximately 1 week. Sore Throat Review of Systems HENT: Positive for sore throat. All other systems reviewed and are negative. Objective BP 138/81 Pulse 62 Temp 36.1 C (97 F) Resp 20 Wt 103 kg (227 lb 1.2 oz) SpO2 99% BMI 32.58 kg/m Physical Exam Vitals and nursing note reviewed. Constitutional: Appearance: Normal appearance. He is normal weight. HENT: Head: Normocephalic and atraumatic. Right Ear: Tympanic membrane, ear canal and external ear normal. Left Ear: Tympanic membrane, ear canal and external ear normal. Nose: Nose normal. Mouth/Throat: Mouth: Mucous membranes are moist. Pharynx: Oropharynx is clear. Eyes: Extraocular Movements: Extraocular movements intact. Conjunctiva/sclera: Conjunctivae normal. Pupils: Pupils are equal, round, and reactive to light. Cardiovascular: Rate and Rhythm: Normal rate and regular rhythm. Pulses: Normal pulses. Heart sounds: Normal heart sounds. Pulmonary: Effort: Pulmonary effort is normal. Breath sounds: Normal breath sounds. Musculoskeletal: Cervical back: Normal range of motion and neck supple. Skin: General: Skin is warm and dry. Capillary Refill: Capillary refill takes less than 2 seconds. Neurological: General: No focal deficit present. Mental Status: He is alert and oriented to person, place, and time. Psychiatric: Mood and Affect: Mood normal. Behavior: Behavior normal. Thought Content: Thought content normal. Judgment: Judgment normal. Assessment and Plan Physical exam findings as noted above. Rapid strep test is negative. Supportive care instructions were discussed and the patient verbalizes good understanding of same. CLINICAL IMPRESSION: Sore Throat ASSESSMENT/PLAN: 1. Sore throat - ICD9: 462, ICD10: J02.9 - STREP A MOLECULAR (POC) Katrin Meléndez PA-C documented in this encounterSelect [facility] [place]25 NoteHNO ID: [id number] Author: ALAN WARD MD Service: ? Author Type: Physician Type: Progress Notes Filed: 09/06/2024 09:01 Note Text: Patient presents with: 6 Month Exam HPI: Patient presents today for office visit for follow up. HTN: BP well controlled. Denies chest pain or shortness of breath. Bp is well controlled. HYPERLIPIDEMIA: Patient is taking medications: Yes. Patient is watching diet: Yes. Patient denies myalgias: Yes. Patient denies gi upset: Yes Sees [facility] PSYCH:emotionally Is doing better. RAMSEY:still using cpap. Benefiting from its use. Sugars are ok. Platelets are likely to be ill. Latest Ref Rng 08/24/2024 09/02/2024 WBC 3.70 - 11.00 k/uL 7.72 RBC 4.20 - 6.00 m/uL 4.78 Hemoglobin 13.0 - 17.0 g/dL 13.4 Hematocrit 39.0 - 51.0 % 42.3 MCV 80.0 - 100.0 fL 88.5 MCH 26.0 - 34.0 pg 28.0 MCHC 30.5 - 36.0 g/dL 31.7 RDW-CV 11.5 - 15.0 % 14.1 Platelet Count 150 - 400 k/uL 408 (H) MPV 9.0 - 12.7 fL 10.0 Neut% % 57.4 Abs Neut (ANC) 1.45 - 7.50 k/uL 4.43 Lymph% % 24.5 Abs Lymph 1.00 - 4.00 k/uL 1.89 [place]% % 12.8 Abs [place] <0.87 k/uL 0.99 (H) Eosin% % 3.9 Abs Eosin <0.46 k/uL 0.30 Baso% % 1.3 Abs Baso <0.11 k/uL 0.10 Immature Gran % % 0.1 IMMATURE GRANS (ABS) <0.10 k/uL <0.03 NRBC /100 WBC 0.0 Absolute nRBC <0.01 k/uL <0.01 DTYPE Auto Protein, Total 6.3 - 8.0 g/dL 7.7 Albumin 3.9 - 4.9 g/dL 4.4 Calcium 8.5 - 10.2 mg/dL 9.8 Bilirubin, Total 0.2 - 1.3 mg/dL 0.3 Alkaline Phosphatase 38 - 113 U/L 91 AST 14 - 40 U/L 24 ALT 10 - 54 U/L 27 Glucose 74 - 99 mg/dL 91 BUN 9 - 24 mg/dL 15 Creatinine 0.73 - 1.22 mg/dL 0.81 Sodium 136 - 144 mmol/L 139 Potassium 3.7 - 5.1 mmol/L 4.6 Chloride 98 - 107 mmol/L 102 CO2 22 - 30 mmol/L 26 Anion Gap 8 - 15 mmol/L 11 eGFR >=60 mL/min/1.73m? 99 Cholesterol, Total <200 mg/dL 140 Triglyceride <150 mg/dL 189 (H) HDL Cholesterol >39 mg/dL 38 (L) Non HDL Cholesterol <130 mg/dL 102 Fasting Time hrs 12 VLDL Cholesterol <30 mg/dL 38 (H) TC:HDL Ratio <5.10 3.68 LDL Cholesterol <100 mg/dL 64 LDL:HDL Ratio <2.54 1.68 Hemoglobin A1C 4.3 - 5.6 % 6.1 (H) Estimated Average Glucose mg/dL 128 Culture Rare Priscila albicans ! Legend: ! Abnormal (H) High (L) Low MEDICATIONS: Current Outpatient Medications Medication Sig benazepril (LOTENSIN) 20 mg tablet Take 1 tablet by mouth two times a day. LORazepam (ATIVAN) 0.5 mg Take 1 tablet by mouth three times a day as needed (anxiety) for up to 90 days. nystatin (MYCOSTATIN) 100,000 unit/mL suspension Take 5 mL by mouth four times daily. 1tsp swish in mouth for several minutes, then swallow (or expectorate) 4 times daily until gone. flecainide (TAMBOCOR) 100 mg tablet Take 100 mg by mouth as needed. dilTIAZem CD (CARDIZEM CD, CARTIA XT) 240 mg 24 hr capsule Take 1 capsule by mouth once daily. aspirin, enteric coated (ECOTRIN LOW STRENGTH) 81 mg EC tablet Take 81 mg by mouth once daily. atorvastatin (LIPITOR) 20 mg tablet Take 1 tablet by mouth once daily. triamcinolone acetonide (NASACORT NASAL) Use in the nose. fexofenadine (SHANNAN) 180 mg tablet Take 180 mg by mouth once daily. calcium carbonate (TUMS ORAL) Take 2 tablets by mouth as needed. hydroCHLOROthiazide (HYDRODIURIL, ESIDRIX) 12.5 mg tablet Take 12.5 mg by mouth twice daily. melatonin 3 mg capsules Take 3 mg by mouth at bedtime as needed. potassium chloride (K-TAB) 10 mEq tablet Take 10 mEq by mouth once daily. metoprolol tartrate, short acting, (LOPRESSOR) 100 mg tablet Take 100 mg by mouth twice daily. No current facility-administered medications for this visit. ALLERGIES: ALLERGIES Allergen Reactions Vicodin [Hydrocodon* Mental Status Change PAST MEDICAL HISTORY Diagnosis Date Anticoagulant long-term use Arrhythmia At risk for stroke [id number] = 1 (HTN) Essential hypertension Essential hypertension Generalized anxiety disorder Hemorrhage of gastrointestinal tract, unspecified Hemorrhoids Paroxysmal atrial fibrillation (HCC) Rectal bleeding 09/2021 Sleep apnea does not use cpap. Snoring PAST SURGICAL HISTORY Procedure Laterality Date COLONOSCOPY FLX DX W/COLLJ SPEC WHEN PFRMD 07/11/2008 Colonoscopy COLONOSCOPY FLX DX W/COLLJ SPEC WHEN PFRMD 05/26/2018 Colonoscopy ESOPHAGOGASTRODUODENOSCOPY TRANSORAL DIAGNOSTIC 05/26/2018 EGD ESOPHAGOGASTRODUODENOSCOPY TRANSORAL DIAGNOSTIC 04/02/2022 EYE SURGERY HX HEMORRHOID: RUBBERBAND, SINGLE/MULTIPLE 10/04/2021 HEMORRHOID;BAND LIGAT, SNGL/MUL 04/02/2022 HEMORRHOIDECTOMY INTERNAL RUBBER BAND LIGATIONS 05/26/2018 PROCEDURE RM-COLONSCOPY W/BX 04/02/2022 FAMILY HISTORY Problem Relation Age of Onset Heart Mother Valve Replacement COPD Mother other (history of smoking) Mother Hypertension Father Kidney failure Father kidney disease - on dialysis Heart disease Father heart valve problem Hypertension Sister Hyperlipidemia Sister other (sudden in (more content not included)...[facility] 09-06-2024 History of Present illness Narrative* Alan Ward MD - 09/06/2024 8:15 AM EDT Patient presents with: 6 Month Exam HPI: Patient presents today for office visit for follow up. HTN: BP well controlled. Denies chest pain or shortness of breath. Bp is well controlled. HYPERLIPIDEMIA: Patient is taking medications: Yes. Patient is watching diet: Yes. Patient denies myalgias: Yes. Patient denies gi upset: Yes Sees [facility] PSYCH:emotionally Is doing better. RAMSEY:still using cpap. Benefiting from its use. Sugars are ok. Platelets are likely to be ill. Latest Ref Rng 08/24/2024 09/02/2024 WBC 3.70 - 11.00 k/uL 7.72 RBC 4.20 - 6.00 m/uL 4.78 Hemoglobin 13.0 - 17.0 g/dL 13.4 Hematocrit 39.0 - 51.0 % 42.3 MCV 80.0 - 100.0 fL 88.5 MCH 26.0 - 34.0 pg 28.0 MCHC 30.5 - 36.0 g/dL 31.7 RDW-CV 11.5 - 15.0 % 14.1 Platelet Count 150 - 400 k/uL 408 (H) MPV 9.0 - 12.7 fL 10.0 Neut% % 57.4 Abs Neut (ANC) 1.45 - 7.50 k/uL 4.43 Lymph% % 24.5 Abs Lymph 1.00 - 4.00 k/uL 1.89 [place]% % 12.8 Abs [place] <0.87 k/uL 0.99 (H) Eosin% % 3.9 Abs Eosin <0.46 k/uL 0.30 Baso% % 1.3 Abs Baso <0.11 k/uL 0.10 Immature Gran % % 0.1 IMMATURE GRANS (ABS) <0.10 k/uL <0.03 NRBC /100 WBC 0.0 Absolute nRBC <0.01 k/uL <0.01 DTYPE Auto Protein, Total 6.3 - 8.0 g/dL 7.7 Albumin 3.9 - 4.9 g/dL 4.4 Calcium 8.5 - 10.2 mg/dL 9.8 Bilirubin, Total 0.2 - 1.3 mg/dL 0.3 Alkaline Phosphatase 38 - 113 U/L 91 AST 14 - 40 U/L 24 ALT 10 - 54 U/L 27 Glucose 74 - 99 mg/dL 91 BUN 9 - 24 mg/dL 15 Creatinine 0.73 - 1.22 mg/dL 0.81 Sodium 136 - 144 mmol/L 139 Potassium 3.7 - 5.1 mmol/L 4.6 Chloride 98 - 107 mmol/L 102 CO2 22 - 30 mmol/L 26 Anion Gap 8 - 15 mmol/L 11 eGFR >=60 mL/min/1.73m 99 Cholesterol, Total <200 mg/dL 140 Triglyceride <150 mg/dL 189 (H) HDL Cholesterol >39 mg/dL 38 (L) Non HDL Cholesterol <130 mg/dL 102 Fasting Time hrs 12 VLDL Cholesterol <30 mg/dL 38 (H) TC:HDL Ratio <5.10 3.68 LDL Cholesterol <100 mg/dL 64 LDL:HDL Ratio <2.54 1.68 Hemoglobin A1C 4.3 - 5.6 % 6.1 (H) Estimated Average Glucose mg/dL 128 Culture Rare Priscila albicans ! Legend: ! Abnormal (H) High (L) Low MEDICATIONS: Current Outpatient Medications Medication Sig benazepril (LOTENSIN) 20 mg tablet Take 1 tablet by mouth two times a day. LORazepam (ATIVAN) 0.5 mg Take 1 tablet by mouth three times a day as needed (anxiety) for up to 90days. nystatin (MYCOSTATIN) 100,000 unit/mL suspension Take 5 mL by mouth four times daily. 1tsp swish inmouth for several minutes, then swallow (or expectorate) 4 times daily until gone. flecainide (TAMBOCOR) 100 mg tablet Take 100 mg by mouth as needed. dilTIAZem CD (CARDIZEM CD, CARTIA XT) 240 mg 24 hr capsule Take 1 capsule by mouth once daily. aspirin, enteric coated (ECOTRIN LOW STRENGTH) 81 mg EC tablet Take 81 mg by mouth once daily. atorvastatin (LIPITOR) 20 mg tablet Take 1 tablet by mouth once daily. triamcinolone acetonide (NASACORT NASAL) Use in the nose. fexofenadine (SHANNAN) 180 mg tablet Take 180 mg by mouth once daily. calcium carbonate (TUMS ORAL) Take 2 tablets by mouth as needed. hydroCHLOROthiazide (HYDRODIURIL, ESIDRIX) 12.5 mg tablet Take 12.5 mg by mouth twice daily. melatonin 3 mg capsules Take 3 mg by mouth at bedtime as needed. potassium chloride (K-TAB) 10 mEq tablet Take 10 mEq by mouth once daily. metoprolol tartrate, short acting, (LOPRESSOR) 100 mg tablet Take 100 mg by mouth twice daily. No current facility-administered medications for this visit. ALLERGIES: ALLERGIES Allergen Reactions Vicodin [Hydrocodon* Mental Status Change PAST MEDICAL HISTORY Diagnosis Date Anticoagulant long-term use Arrhythmia At risk for stroke [id number] = 1 (HTN) Essential hypertension Essential hypertension Generalized anxiety disorder Hemorrhage of gastrointestinal tract, unspecified Hemorrhoids Paroxysmal atrial fibrillation (HCC) Rectal bleeding 09/2021 Sleep apnea does not use cpap. Snoring PAST SURGICAL HISTORY Procedure Laterality Date COLONOSCOPY FLX DX W/COLLJ SPEC WHEN PFRMD 07/11/2008 Colonoscopy COLONOSCOPY FLX DX W/COLLJ SPEC WHEN PFRMD 05/26/2018 Colonoscopy ESOPHAGOGASTRODUODENOSCOPY TRANSORAL DIAGNOSTIC 05/26/2018 EGD ESOPHAGOGASTRODUODENOSCOPY TRANSORAL DIAGNOSTIC 04/02/2022 EYE SURGERY HX HEMORRHOID: RUBBERBAND, SINGLE/MULTIPLE 10/04/2021 HEMORRHOID;BAND LIGAT, SNGL/MUL 04/02/2022 HEMORRHOIDECTOMY INTERNAL RUBBER BAND LIGATIONS 05/26/2018 PROCEDURE RM-COLONSCOPY W/BX 04/02/2022 FAMILY HISTORY Problem Relation Age of Onset Heart Mother Valve Replacement COPD Mother other (history of smoking) Mother Hypertension Father Kidney failure Father kidney disease - on dialysis Heart disease Father heart valve problem Hypertension Sister Hyperlipidemia Sister other (sudden ) Brother other (sudden ) Brother Thyroid Son Prostate Cancer No Family History none Social History Tobacco Use Smoking status: Never Smokeless tobacco: Never Vaping Use Vaping status: Never Used Substance Use Topics Alcohol use: Yes Comment: very occasional Drug use: No Reviewed current medications, allergies, past medical history, surgical history, family history andsocial history today. REVIEW OF SYSTEMS All other reviewed and negative other than HPI. HEALTH MAINTENANCE: Reviewed health maintenance issues today and recommended the following in detail. Depression Screening Never done BP Controlled (<130/80) Never done Pneumococcal Vaccine: 50+(1 of 1 - PCV) Never done VITALS: BP 124/62 Pulse 76 Wt 103 kg (227 lb) SpO2 100% BMI 32.57 kg/m Last 4 Encounter Wt Readings: Date: Wt: 09/06/2024 103 kg (227 lb) 08/24/2024 104.7 kg (230 lb 13.2 oz) 08/16/2024 103.9 kg (229 lb) 08/02/2024 108.8 kg (239 lb 13.8 oz) PHYSICAL EXAMINATION: General appearance: Well appearing, alert, in no acute distress, well-hydrated, well nourished. Skin: Skin color, texture, turgor normal, no suspicious rashes or lesions Mouth unremarkable. Head: Normocephalic, no masses, lesions, tenderness or abnormalities Eyes: Anicteric sclera. Pupils are equally round and reactive to light. Extraocular movements are intact. Lungs: Lungs clear to auscultation. No wheezing, rhonchi, rales Heart: RRR without murmur, gallop, or rubs. No ectopy Abdomen: Normal abdominal exam, Abdomen soft, non-tender. Bowel sounds normal. No masses, organomegaly Extremities: No deformities, edema, skin discoloration, clubbing or cyanosis. Good capillary refill. Musculoskeletal: No joint swelling, deformity, or tenderness Peripheral pulses: Normal Neuro: Negative. ASSESSMENT/PLAN: 1. Essential hypertension - ICD9: 401.9, ICD10: I10 (primary diagnosis) - Controlled - Continue current medications 2. Paroxysmal atrial fibrillation (HCC) - ICD9: 427.31, ICD10: I48.0 - stable. 3. Mixed hyperlipidemia - ICD9: 272.2, ICD10: E78.2 - Controlled - Continue current medications 4. Unspecified sleep apnea - ICD9: 780.57, ICD10: G47.30 - benefits from its use. 5. Hyperglycemia - ICD9: 790.29, ICD10: R73.9 - HEMOGLOBIN A1C 6. Benign paroxysmal positional vertigo, unspecified laterality - ICD9: 386.11, ICD10: H81.10 - stable. 7. Generalized Anxiety Disorder - ICD9: 300.02, ICD10: F41.1 - stable. 8. Obesity, Class I, BMI 30-34.9 - ICD9: 278.00, ICD10: E66.811 - stable. 9. Thrombocytosis - ICD9: 238.71, ICD10: D75.839 - PLATELET COUNT-likely an acute phase reactant. 10. Screening for depression - ICD9: V79.0, ICD10: Z13.31 - DEPRESSION SCREENING Alan Ward MD [facility] [place] Telephone encounter Note * Telephone Encounter - Jolly Miramontes LPN - 08/30/2024 11:17 AM EDT Prescription Refill Information The patient has been identified by name and date of : Yes Caregiver verified no other encounters exist for this prescription request: Yes Caregiver confirmed with patient/requestor that no other refills are due, in the near future, with this provider at this time: Yes The last office visit in the department: 08/16/2024 Does the patient have a future office visit with this provider/department: Yes Requested Prescriptions Pending Prescriptions Disp Refills benazepril (LOTENSIN) 20 mg tablet 180 tablet 3 Sig: Take 1 tablet by mouth two times a day. LORazepam (ATIVAN) 0.5 mg 90 tablet 1 Sig: Take 1 tablet by mouth three times a day as needed (anxiety) for up to 90 days. Jolly Miramontes LPN August 30, 2024 11:18 AM [facility] [place]03-10-2025 Miscellaneous Notes* Telephone Encounter - Jolly Miramontes LPN - 08/30/2024 11:17 AM EDT Prescription Refill Information The patient has been identified by name and date of : Yes Caregiver verified no other encounters exist for this prescription request: Yes Caregiver confirmed with patient/requestor that no other refills are due, in the near future, with this provider at this time: Yes The last office visit in the department: 08/16/2024 Does the patient have a future office visit with this provider/department: Yes Requested Prescriptions Pending Prescriptions Disp Refills benazepril (LOTENSIN) 20 mg tablet 180 tablet 3 Sig: Take 1 tablet by mouth two times a day. LORazepam (ATIVAN) 0.5 mg 90 tablet 1 Sig: Take 1 tablet by mouth three times a day as needed (anxiety) for up to 90 days. Jolly Miramontes LPN August 30, 2024 11:18 AM documented in this encounterSelect [facility] [place]25 NoteHNO ID: [id number] Author: SJ MCLAUGHLIN PA Service: ? Author Type: Physician Lehr Stripper Type: Progress Notes Filed: 08/24/2024 18:45 Note Text: [facility] Subjective Andrea Piedra is a 64 year old male. HPI 64-year-old male presents for sore throat x 2 days. Patient states he had a had influenza about a month ago. All of those symptoms have improved. He does still have mild tickle in his throat/cough, so has been using cough drops. He states that he slept with cough drops in his mouth the past few nights and noticed that his throat feels irritated and his tongue feels irritated. He states that the cough drops or Gale's cough drops and they do have some acid in them, so he thought it may be due to this. He is still able to eat and drink, throat just feels irritated. He denies any fevers, congestion. No new sick contacts. No fevers. He states he had a white coating on his tongue earlier, but that has resolved. He denies any recent antibiotics or steroids. No history of thrush. No other complaint. PAST MEDICAL HISTORY Diagnosis Date Anticoagulant long-term use Arrhythmia At risk for stroke [id number] = 1 (HTN) Essential hypertension Essential hypertension Generalized anxiety disorder Hemorrhage of gastrointestinal tract, unspecified Hemorrhoids Paroxysmal atrial fibrillation (HCC) Rectal bleeding 09/2021 Sleep apnea does not use cpap. Snoring PAST SURGICAL HISTORY Procedure Laterality Date COLONOSCOPY FLX DX W/COLLJ SPEC WHEN PFRMD 07/11/2008 Colonoscopy COLONOSCOPY FLX DX W/COLLJ SPEC WHEN PFRMD 05/26/2018 Colonoscopy ESOPHAGOGASTRODUODENOSCOPY TRANSORAL DIAGNOSTIC 05/26/2018 EGD ESOPHAGOGASTRODUODENOSCOPY TRANSORAL DIAGNOSTIC 04/02/2022 EYE SURGERY HX HEMORRHOID: RUBBERBAND, SINGLE/MULTIPLE 10/04/2021 HEMORRHOID;BAND LIGAT, SNGL/MUL 04/02/2022 HEMORRHOIDECTOMY INTERNAL RUBBER BAND LIGATIONS 05/26/2018 PROCEDURE RM-COLONSCOPY W/BX 04/02/2022 ALLERGIES Vicodin [Hydrocodone-Acetaminophen] MEDICATIONS flecainide (TAMBOCOR) 100 mg tablet Take 100 mg by mouth as needed. LORazepam (ATIVAN) 0.5 mg Take 1 tablet by mouth three times a day as needed (anxiety) for up to 90 days. dilTIAZem CD (CARDIZEM CD, CARTIA XT) 240 mg 24 hr capsule Take 1 capsule by mouth once daily. aspirin, enteric coated (ECOTRIN LOW STRENGTH) 81 mg EC tablet Take 81 mg by mouth once daily. benazepril (LOTENSIN) 20 mg tablet Take 1 tablet by mouth two times a day. atorvastatin (LIPITOR) 20 mg tablet Take 1 tablet by mouth once daily. triamcinolone acetonide (NASACORT NASAL) Use in the nose. fexofenadine (SHANNAN) 180 mg tablet Take 180 mg by mouth once daily. calcium carbonate (TUMS ORAL) Take 2 tablets by mouth as needed. hydroCHLOROthiazide (HYDRODIURIL, ESIDRIX) 12.5 mg tablet Take 12.5 mg by mouth twice daily. melatonin 3 mg capsules Take 3 mg by mouth at bedtime as needed. potassium chloride (K-TAB) 10 mEq tablet Take 10 mEq by mouth once daily. metoprolol tartrate, short acting, (LOPRESSOR) 100 mg tablet Take 100 mg by mouth twice daily. FAMILY HISTORY Problem Relation Age of Onset Heart Mother Valve Replacement COPD Mother other (history of smoking) Mother Hypertension Father Kidney failure Father kidney disease - on dialysis Heart disease Father heart valve problem Hypertension Sister Hyperlipidemia Sister other (sudden ) Brother other (sudden infant ) Brother Thyroid Son Prostate Cancer No Family History none Social History Tobacco Use Smoking status: Never Smokeless tobacco: Never Vaping Use Vaping status: Never Used Substance Use Topics Alcohol use: Yes Comment: very occasional Drug use: No Review of Systems Constitutional: Negative for chills and fever. HENT: Positive for sore throat. Negative for congestion. Respiratory: Negative for cough and shortness of breath. Gastrointestinal: Negative for diarrhea and vomiting. Objective BP 124/84 Pulse 94 Temp 37.1 ?C (98.8 ?F) Resp 16 Wt 104.7 kg (230 lb 13.2 oz) SpO2 96% BMI 33.12 kg/m? Physical Exam Vitals and nursing note reviewed. Constitutional: General: He is not in acute distress. Appearance: Normal appearance. He is not toxic-appearing. HENT: Right Ear: Tympanic membrane and ear canal normal. Left Ear: Tympanic membrane and ear canal normal. Nose: Nose normal. Mouth/Throat: Mouth: Mucous membranes are moist. Tongue: Lesions present. Pharynx: Uvula midline. Posterior oropharyngeal erythema present. Tonsils: 2+ on the right. 2+ on the left. Comments: Patient has irritated/raised papilla on the tongue noted. Small amount of white coating. No lesions on the buccal mucosa. Posterior oropharyngeal erythema noted. Uvula midline. Eyes: Conjunctiva/sclera: Conjunctivae normal. Cardiovascular: Rate and Rhythm: Normal rate and regular rhythm. Pulmonary: Effort: Pulmonary effort is no (more content not included)...[facility]03-04-2025 History of Present illness Narrative* Sj Mclaughlin PA - 08/24/2024 6:36 PM EST [facility] Subjective Andrea Piedra is a 64 year old male. HPI 64-year-old male presents for sore throat x 2 days. Patient states he had a had influenza abouta month ago. All of those symptoms have improved. He does still have mild tickle in his throat/cough, so has been using cough drops. He states that he slept with cough drops in his mouth the past fewnights and noticed that his throat feels irritated and his tongue feels irritated. He states that the cough drops or Gale's cough drops and they do have some acid in them, so he thought it may be dueto this. He is still able to eat and drink, throat just feels irritated. He denies any fevers, congestion. No new sick contacts. No fevers. He states he had a white coating on his tongue earlier, but that has resolved. He denies any recent antibiotics or steroids. No history of thrush. No other complaint. PAST MEDICAL HISTORY Diagnosis Date Anticoagulant long-term use Arrhythmia At risk for stroke [id number] = 1 (HTN) Essential hypertension Essential hypertension Generalized anxiety disorder Hemorrhage of gastrointestinal tract, unspecified Hemorrhoids Paroxysmal atrial fibrillation (HCC) Rectal bleeding 09/2021 Sleep apnea does not use cpap. Snoring PAST SURGICAL HISTORY Procedure Laterality Date COLONOSCOPY FLX DX W/COLLJ SPEC WHEN PFRMD 07/11/2008 Colonoscopy COLONOSCOPY FLX DX W/COLLJ SPEC WHEN PFRMD 05/26/2018 Colonoscopy ESOPHAGOGASTRODUODENOSCOPY TRANSORAL DIAGNOSTIC 05/26/2018 EGD ESOPHAGOGASTRODUODENOSCOPY TRANSORAL DIAGNOSTIC 04/02/2022 EYE SURGERY HX HEMORRHOID: RUBBERBAND, SINGLE/MULTIPLE 10/04/2021 HEMORRHOID;BAND LIGAT, SNGL/MUL 04/02/2022 HEMORRHOIDECTOMY INTERNAL RUBBER BAND LIGATIONS 05/26/2018 PROCEDURE RM-COLONSCOPY W/BX 04/02/2022 ALLERGIES Vicodin [Hydrocodone-Acetaminophen] MEDICATIONS flecainide (TAMBOCOR) 100 mg tablet Take 100 mg by mouth as needed. LORazepam (ATIVAN) 0.5 mg Take 1 tablet by mouth three times a day as needed (anxiety) for up to 90days. dilTIAZem CD (CARDIZEM CD, CARTIA XT) 240 mg 24 hr capsule Take 1 capsule by mouth once daily. aspirin, enteric coated (ECOTRIN LOW STRENGTH) 81 mg EC tablet Take 81 mg by mouth once daily. benazepril (LOTENSIN) 20 mg tablet Take 1 tablet by mouth two times a day. atorvastatin (LIPITOR) 20 mg tablet Take 1 tablet by mouth once daily. triamcinolone acetonide (NASACORT NASAL) Use in the nose. fexofenadine (SHANNAN) 180 mg tablet Take 180 mg by mouth once daily. calcium carbonate (TUMS ORAL) Take 2 tablets by mouth as needed. hydroCHLOROthiazide (HYDRODIURIL, ESIDRIX) 12.5 mg tablet Take 12.5 mg by mouth twice daily. melatonin 3 mg capsules Take 3 mg by mouth at bedtime as needed. potassium chloride (K-TAB) 10 mEq tablet Take 10 mEq by mouth once daily. metoprolol tartrate, short acting, (LOPRESSOR) 100 mg tablet Take 100 mg by mouth twice daily. FAMILY HISTORY Problem Relation Age of Onset Heart Mother Valve Replacement COPD Mother other (history of smoking) Mother Hypertension Father Kidney failure Father kidney disease - on dialysis Heart disease Father heart valve problem Hypertension Sister Hyperlipidemia Sister other (sudden infant ) Brother other (sudden ) Brother Thyroid Son Prostate Cancer No Family History none Social History Tobacco Use Smoking status: Never Smokeless tobacco: Never Vaping Use Vaping status: Never Used Substance Use Topics Alcohol use: Yes Comment: very occasional Drug use: No Review of Systems Constitutional: Negative for chills and fever. HENT: Positive for sore throat. Negative for congestion. Respiratory: Negative for cough and shortness of breath. Gastrointestinal: Negative for diarrhea and vomiting. Objective BP 124/84 Pulse 94 Temp 37.1 C (98.8 F) Resp 16 Wt 104.7 kg (230 lb 13.2 oz) SpO2 96% BMI 33.12 kg/m Physical Exam Vitals and nursing note reviewed. Constitutional: General: He is not in acute distress. Appearance: Normal appearance. He is not toxic-appearing. HENT: Right Ear: Tympanic membrane and ear canal normal. Left Ear: Tympanic membrane and ear canal normal. Nose: Nose normal. Mouth/Throat: Mouth: Mucous membranes are moist. Tongue: Lesions present. Pharynx: Uvula midline. Posterior oropharyngeal erythema present. Tonsils: 2+ on the right. 2+ on the left. Comments: Patient has irritated/raised papilla on the tongue noted. Small amount of white coating. No lesions on the buccal mucosa. Posterior oropharyngeal erythema noted. Uvula midline. Eyes: Conjunctiva/sclera: Conjunctivae normal. Cardiovascular: Rate and Rhythm: Normal rate and regular rhythm. Pulmonary: Effort: Pulmonary effort is normal. Breath sounds: Normal breath sounds. Skin: General: Skin is warm and dry. Neurological: Mental Status: He is alert. Assessment and Plan Differential Diagnoses - Sore throat is more likely for the following reason(s): suggested by H&P - Strep pharyngitis is less likely for the following reason(s): laboratory studies not suggestive Disposition The patient was discharged. Procedures ASSESSMENT/PLAN: 1. Sore throat - ICD9: 462, ICD10: J02.9 (primary diagnosis) - suspect viral - Group A strep molecular testing negative - Discussed supportive care treatment with fluids, rest and analgesia. - The patient may also use warm salt water gargles, throat lozenges and/or OTC throat spray as needed. - STREP A MOLECULAR (POC) 2. Soreness of tongue - ICD9: 529.6, ICD10: K14.6 - YEAST SCREEN -No medication given. If positive for yeast, please treat with nystatin mouthwash Diagnosis and treatment plan were discussed and questions were answered to the patient's satisfaction. Pt acknowledged understanding of concepts and follow up plan. Specific signs and symptoms that would indicate the need for higher level of care were discussed in detail warranting prompt ER evaluation. MALLIKA Jaimes documented in this encounterSelect [facility] [place]25 Instructions* Patient Instructions* Alan Ward MD - 08/16/2024 1:35 PM EST Use delsym for cough. [facility] - [facility] Therapy/Counseling [facility] [address] [place] [address] [facility] [address] [place] [address] [employer] [address] [address] [facility] [address] [place] [address] [facility] [address] [place] [address] Cassidy Munson [facility] [address] [address] [employer] [address] [place] [address] [facility] [address] [place] [address] documented in this encounterSelect [facility] [place]-24-2025 NoteHNO ID: [id number] Author: ALAN WARD MD Service: ? Author Type: Physician Type: Progress Notes Filed: 08/16/2024 13:35 Note Text: Patient presents with: Follow Up HPI: Patient presents today for office visit for follow up. [facility]. Tested positive for Influenza A. Still with bad cough. Cough is keeping him up at night. Denies chest pain and shortness of breath. No wheezing. Has a lot of congestion first thing in the morning and at night. PSYCH: Struggles with anxiety. Continues taking Ativan nightly. 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 Grandson was recently ill which was hard on him. Worried about the future with grandson with him being up in years. and him were both ill trying to care for grandson and it took a lot out of him. Has loss of appetite due to anxiety. Only uses lorazepam at hs. Oarrs done. Discussed risks and benefits of benzos and discussed avoiding increasing it. Offered ssri's. Will consider. MEDICATIONS: Current Outpatient Medications Medication Sig flecainide (TAMBOCOR) 100 mg tablet Take 100 mg by mouth as needed. LORazepam (ATIVAN) 0.5 mg Take 1 tablet by mouth three times a day as needed (anxiety) for up to 90 days. dilTIAZem CD (CARDIZEM CD, CARTIA XT) 240 mg 24 hr capsule Take 1 capsule by mouth once daily. aspirin, enteric coated (ECOTRIN LOW STRENGTH) 81 mg EC tablet Take 81 mg by mouth once daily. benazepril (LOTENSIN) 20 mg tablet Take 1 tablet by mouth two times a day. atorvastatin (LIPITOR) 20 mg tablet Take 1 tablet by mouth once daily. triamcinolone acetonide (NASACORT NASAL) Use in the nose. fexofenadine (SHANNAN) 180 mg tablet Take 180 mg by mouth once daily. calcium carbonate (TUMS ORAL) Take 2 tablets by mouth as needed. hydroCHLOROthiazide (HYDRODIURIL, ESIDRIX) 12.5 mg tablet Take 12.5 mg by mouth twice daily. melatonin 3 mg capsules Take 3 mg by mouth at bedtime as needed. potassium chloride (K-TAB) 10 mEq tablet Take 10 mEq by mouth once daily. metoprolol tartrate, short acting, (LOPRESSOR) 100 mg tablet Take 100 mg by mouth twice daily. No current facility-administered medications for this visit. ALLERGIES: ALLERGIES Allergen Reactions Vicodin [Hydrocodon* Mental Status Change PAST MEDICAL HISTORY Diagnosis Date Anticoagulant long-term use Arrhythmia At risk for stroke [id number] = 1 (HTN) Essential hypertension Essential hypertension Generalized anxiety disorder Hemorrhage of gastrointestinal tract, unspecified Hemorrhoids Paroxysmal atrial fibrillation (HCC) Rectal bleeding 09/2021 Sleep apnea does not use cpap. Snoring PAST SURGICAL HISTORY Procedure Laterality Date COLONOSCOPY FLX DX W/COLLJ SPEC WHEN PFRMD 07/11/2008 Colonoscopy COLONOSCOPY FLX DX W/COLLJ SPEC WHEN PFRMD 05/26/2018 Colonoscopy ESOPHAGOGASTRODUODENOSCOPY TRANSORAL DIAGNOSTIC 05/26/2018 EGD ESOPHAGOGASTRODUODENOSCOPY TRANSORAL DIAGNOSTIC 04/02/2022 EYE SURGERY HX HEMORRHOID: RUBBERBAND, SINGLE/MULTIPLE 10/04/2021 HEMORRHOID;BAND LIGAT, SNGL/MUL 04/02/2022 HEMORRHOIDECTOMY INTERNAL RUBBER BAND LIGATIONS 05/26/2018 PROCEDURE RM-COLONSCOPY W/BX 04/02/2022 FAMILY HISTORY Problem Relation Age of Onset Heart Mother Valve Replacement COPD Mother other (history of smoking) Mother Hypertension Father Kidney failure Father kidney disease - on dialysis Heart disease Father heart valve problem Hypertension Sister Hyperlipidemia Sister other (sudden infant ) Brother other (sudden ) Brother Thyroid Son Prostate Cancer No Family History none Social History Tobacco Use Smoking status: Never Smokeless tobacco: Never Vaping Use Vaping status: Never Used Substance Use Topics Alcohol use: Yes Comment: very occasional Drug use: No Reviewed current medications, allergies, past medical history, surgical history, family history and social history today. REVIEW OF SYSTEMS All other reviewed and negative other than HPI. VITALS: BP 126/64 Pulse 76 Temp 36.9 ?C (98.4 ?F) Ht 177.8 cm (5' 10") Wt 103.9 kg (229 lb) SpO2 97% BMI 32.86 kg/m? Last 4 Encounter Wt Readings: Date: Wt: 08/16/2024 103.9 kg (229 lb) 08/02/2024 108.8 kg (239 lb 13.8 oz) 07/09/2024 109.3 kg (241 lb) 06/07/2024 109.8 kg (242 lb) PHYSICAL EXAMINATION: General appearance: Well appearing, alert, in no acute distress, well-hydrated, well nourished. Skin: Skin color, texture, turgor normal, no suspicious rashes or lesions Head: Normocephalic, no masses, lesions, tenderness or abnormalities Eyes: Anicteric sclera. Pupils are equally round and reactive to light. Extraocular movements are intact. Ears: External ears normal, canals clear Nose/Sinuses: Nares normal, septum midline, mucosa normal, no drainage or sinus tenderness Oropharynx: Lips, mucosa, and tongue normal, teeth and gums normal, oropharynx normal Neck (more content not included)...[facility]02-24-2025 History of Present illness Narrative* Alan Ward MD - 08/16/2024 1:05 PM EST Patient presents with: Follow Up HPI: Patient presents today for office visit for follow up. Seen in [facility] 08/02/24. Tested positive for Influenza A. Still with bad cough. Cough is keeping him up at night. Denies chest pain and shortness of breath. No wheezing. Has a lot of congestion first thing in the morning and at night. PSYCH: Struggles with anxiety. Continues taking Ativan nightly. 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 Grandson was recently ill which was hard on him. Worried about the future with grandson with him being up in years. and him were both ill trying to care for grandson and it took a lot out of him. Has loss of appetite due to anxiety. Only uses lorazepam at hs. Oarrs done. Discussed risks and benefits of benzos and discussed avoiding increasing it. Offered ssri's. Will consider. MEDICATIONS: Current Outpatient Medications Medication Sig flecainide (TAMBOCOR) 100 mg tablet Take 100 mg by mouth as needed. LORazepam (ATIVAN) 0.5 mg Take 1 tablet by mouth three times a day as needed (anxiety) for up to 90days. dilTIAZem CD (CARDIZEM CD, CARTIA XT) 240 mg 24 hr capsule Take 1 capsule by mouth once daily. aspirin, enteric coated (ECOTRIN LOW STRENGTH) 81 mg EC tablet Take 81 mg by mouth once daily. benazepril (LOTENSIN) 20 mg tablet Take 1 tablet by mouth two times a day. atorvastatin (LIPITOR) 20 mg tablet Take 1 tablet by mouth once daily. triamcinolone acetonide (NASACORT NASAL) Use in the nose. fexofenadine (SHANNAN) 180 mg tablet Take 180 mg by mouth once daily. calcium carbonate (TUMS ORAL) Take 2 tablets by mouth as needed. hydroCHLOROthiazide (HYDRODIURIL, ESIDRIX) 12.5 mg tablet Take 12.5 mg by mouth twice daily. melatonin 3 mg capsules Take 3 mg by mouth at bedtime as needed. potassium chloride (K-TAB) 10 mEq tablet Take 10 mEq by mouth once daily. metoprolol tartrate, short acting, (LOPRESSOR) 100 mg tablet Take 100 mg by mouth twice daily. No current facility-administered medications for this visit. ALLERGIES: ALLERGIES Allergen Reactions Vicodin [Hydrocodon* Mental Status Change PAST MEDICAL HISTORY Diagnosis Date Anticoagulant long-term use Arrhythmia At risk for stroke [id number] = 1 (HTN) Essential hypertension Essential hypertension Generalized anxiety disorder Hemorrhage of gastrointestinal tract, unspecified Hemorrhoids Paroxysmal atrial fibrillation (HCC) Rectal bleeding 09/2021 Sleep apnea does not use cpap. Snoring PAST SURGICAL HISTORY Procedure Laterality Date COLONOSCOPY FLX DX W/COLLJ SPEC WHEN PFRMD 07/11/2008 Colonoscopy COLONOSCOPY FLX DX W/COLLJ SPEC WHEN PFRMD 05/26/2018 Colonoscopy ESOPHAGOGASTRODUODENOSCOPY TRANSORAL DIAGNOSTIC 05/26/2018 EGD ESOPHAGOGASTRODUODENOSCOPY TRANSORAL DIAGNOSTIC 04/02/2022 EYE SURGERY HX HEMORRHOID: RUBBERBAND, SINGLE/MULTIPLE 10/04/2021 HEMORRHOID;BAND LIGAT, SNGL/MUL 04/02/2022 HEMORRHOIDECTOMY INTERNAL RUBBER BAND LIGATIONS 05/26/2018 PROCEDURE RM-COLONSCOPY W/BX 04/02/2022 FAMILY HISTORY Problem Relation Age of Onset Heart Mother Valve Replacement COPD Mother other (history of smoking) Mother Hypertension Father Kidney failure Father kidney disease - on dialysis Heart disease Father heart valve problem Hypertension Sister Hyperlipidemia Sister other (sudden infant ) Brother other (sudden infant ) Brother Thyroid Son Prostate Cancer No Family History none Social History Tobacco Use Smoking status: Never Smokeless tobacco: Never Vaping Use Vaping status: Never Used Substance Use Topics Alcohol use: Yes Comment: very occasional Drug use: No Reviewed current medications, allergies, past medical history, surgical history, family history andsocial history today. REVIEW OF SYSTEMS All other reviewed and negative other than HPI. VITALS: BP 126/64 Pulse 76 Temp 36.9 C (98.4 F) Ht 177.8 cm (5' 10") Wt 103.9 kg (229 lb) SpO2 97% BMI 32.86 kg/m Last 4 Encounter Wt Readings: Date: Wt: 08/16/2024 103.9 kg (229 lb) 08/02/2024 108.8 kg (239 lb 13.8 oz) 07/09/2024 109.3 kg (241 lb) 06/07/2024 109.8 kg (242 lb) PHYSICAL EXAMINATION: General appearance: Well appearing, alert, in no acute distress, well-hydrated, well nourished. Skin: Skin color, texture, turgor normal, no suspicious rashes or lesions Head: Normocephalic, no masses, lesions, tenderness or abnormalities Eyes: Anicteric sclera. Pupils are equally round and reactive to light. Extraocular movements are intact. Ears: External ears normal, canals clear Nose/Sinuses: Nares normal, septum midline, mucosa normal, no drainage or sinus tenderness Oropharynx: Lips, mucosa, and tongue normal, teeth and gums normal, oropharynx normal Neck: Supple, no adenopath Lungs: Lungs clear to auscultation. No wheezing, rhonchi, rales Heart: RRR without murmur, gallop, or rubs. No ectopy Abdomen: Normal abdominal exam, Abdomen soft, non-tender. Bowel sounds normal. No masses, organomegaly Extremities: No deformities, edema, skin discoloration, ASSESSMENT/PLAN: 1. Essential hypertension - ICD9: 401.9, ICD10: I10 (primary diagnosis) - Controlled 2. Mixed hyperlipidemia - ICD9: 272.2, ICD10: E78.2 - Controlled - Continue current medications 3. Paroxysmal atrial fibrillation (HCC) - ICD9: 427.31, ICD10: I48.0 - stable. 4. Unspecified sleep apnea - ICD9: 780.57, ICD10: G47.30 - treating. 5. Generalized Anxiety Disorder - ICD9: 300.02, ICD10: F41.1 - consider ssri. - CONSULT TO [facility] 6. Influenza A - ICD9: 487.1, ICD10: J10.1 - Discussed risks and benefits of new medication with the patient. Advised them to call if any sideeffects or questions. Red flags for re-assessment reviewed with patient in detail. Call if symptoms worsen at all or if not better in one to two weeks Reviewed diagnosis and treatment options in detail. Questions were answered. Patient expressed understanding of treatment plan. - PREDNISONE 20 MG TABLET Alan Ward MD [facility] [place] Telephone encounter Note * Telephone Encounter - Zee De La Vega APRN.CNP - 08/02/2024 8:16 PM EST Agree with plan/advice given. [facility] Work Phone: 1(306) 961-602802-10-2025 Miscellaneous Notes* Telephone Encounter - Zee De La Vega APRN.CNP - 08/02/2024 8:16 PM EST Agree with plan/advice given. * Telephone Encounter - Macey Nguyen RN - 08/02/2024 7:55 PM EST Called and spoke with and pt. 30 mins ago temp was down to 101.9. Temp taken while nurse talking to and current temp is 100.0. Pt is feeling better than earlier. Nurse scrap preparation supervisor number given to pt's for them to call if anything changes. She verbalizes understanding. * Telephone Encounter - Afua Morgan RN - 08/02/2024 5:01 PM EST [facility]. Positive for Influenza A. Medication prescribed. Pt's calling and states pt's temp is currently 104.8. Pt is taking Tylenol 500 mg every 6 hours, as indicated on their bottle. Pt was due for tylenol dose about 30 min ago and gave it to him. Pt without confusion, no SOB. No rashes or stiff neck. Continues with head congestion, cough-nonproductive, sinus symptoms, and fever f. reports pt is drinking and urinating. Advised to apply cool cloths to patient's upper body and under arms, encourage fluids. Current protocol advises PCP to advise patient. Informed that message would be sent to a PCP triad provider/On-Call Provider for review and to be called back with reply. aware to have pt proceed to ER for any severe sx's as discussed. Afua Morgan RN documented [facility] [place] Telephone encounter Note * Telephone Encounter - Macey Nguyen RN - 08/02/2024 7:55 PM EST Called and spoke with and pt. 30 mins ago temp was down to 101.9. Temp taken while nurse talking to and current temp is 100.0. Pt is feeling better than earlier. Nurse scrap preparation supervisor number given to pt's for them to call if anything changes. She verbalizes understanding. [facility] [place]02-10-2025 Telephone encounter Note* Telephone Encounter - Orlando Nagel MD - 08/02/2024 7:39 PM EST I called his back: He not is taking any anti-coagulant other than aspirin. Ibuprofen can be used, but it will increasethe risk of stomach ulcer. The risk should be acceptable if only taken a couple days. [facility] Work Phone: [phone]) 569-904002-10-2025 Miscellaneous Notes* Telephone Encounter - Orlando Nagel MD - 08/02/2024 7:39 PM EST I called his back: He not is taking any anti-coagulant other than aspirin. Ibuprofen can be used, but it will increasethe risk of stomach ulcer. The risk should be acceptable if only taken a couple days. * Telephone Encounter - Natalie Partida RN - 08/02/2024 5:01 PM EST Patient's calls and states that patient continues to run a temperature of 104.8 and that is with tylenol. Patient cannot take anymore tylenol today. asking what she should do? Please review and advise, Natalie Partida RN documented in [facility] encounter[facility] [place] Telephone encounter Note * Telephone Encounter - Afua Morgan RN - 08/02/2024 5:01 PM EST Pt was seen in [facility] care today. Positive for Influenza A. Medication prescribed. Pt's calling and states pt's temp is currently 104.8. Pt is taking Tylenol 500 mg every 6 hours, as indicated on their bottle. Pt was due for tylenol dose about 30 min ago and gave it to him. Pt without confusion, no SOB. No rashes or stiff neck. Continues with head congestion, cough-nonproductive, sinus symptoms, and fever f. reports pt is drinking and urinating. Advised to apply cool cloths to patient's upper body and under arms, encourage fluids. Current protocol advises PCP to advise patient. Informed that message would be sent to a PCP triad provider/On-Call Provider for review and to be called back with reply. aware to have pt proceed to ER for any severe sx's as discussed. Afua Morgan RN [facility] [place]02-10-2025 Telephone encounter Note* Telephone Encounter - Natalie Partida RN - 08/02/2024 5:01 PM EST Patient's calls and states that patient continues to run a temperature of 104.8 and that is with tylenol. Patient cannot take anymore tylenol today. asking what she should do? Please review and advise, Natalie Partida, RN [facility]02-10-2025 NoteHNO ID: [id number] Author: CHARLENE BECK APRN.[employer] Service: ? Author Type: Nurse Practitioner Type: Progress Notes Filed: 08/02/2024 10:36 Note Text: CC: Patient presents with: Cough: Chest congestion, sinus, fever, TREVIÑO x 2 days HPI: Andrea Piedra is a 64 year old male who presents to the office with complaint of head congestion, cough, nonproductive, sinus symptoms, and fever for 2 days. Symptoms are staying the same. Associated symptoms includes headache and body aches. Denies wheezing, dyspnea, nausea, and vomiting . Treatments tried include nothing so far. with no relief of symptoms. Sick contacts: unknown. History of asthma, frequent episodes of bronchitis, chronic bronchitis, bronchiectasis or COPD: No The ROS is otherwise negative. The patient's pmh, medications, allergies, and past visits are reviewed. PHYSICAL EXAM: BP 120/82 Pulse 74 Temp 37.4 ?C (99.4 ?F) Resp 20 Wt 108.8 kg (239 lb 13.8 oz) SpO2 96% BMI 34.42 kg/m? General appearance: alert, cooperative, pleasant, in no acute distress Head: Normocephalic Eyes: EOM's intact, conjunctiva pink and moist, no icterus, sclera white, non-injected Ears: Right ear: External ear/canal- Normal, TM - clear with good landmarks. Left ear: External ear/canal- Normal, TM - clear with good landmarks Oropharynx:moist without lesions, No erythema, exudates or tonsillar hypertrophy. Heart: Negative. RRR without obvious murmur, gallop, or rubs. No ectopy. Lungs: clear to auscultation, without rales or wheeze, good air exchange PAST MEDICAL HISTORY Diagnosis Date Anticoagulant long-term use Arrhythmia At risk for stroke [id number] = 1 (HTN) Essential hypertension Essential hypertension Generalized anxiety disorder Hemorrhage of gastrointestinal tract, unspecified Hemorrhoids Paroxysmal atrial fibrillation (HCC) Rectal bleeding 09/2021 Sleep apnea does not use cpap. Snoring PAST SURGICAL HISTORY Procedure Laterality Date COLONOSCOPY FLX DX W/COLLJ SPEC WHEN PFRMD 07/11/2008 Colonoscopy COLONOSCOPY FLX DX W/COLLJ SPEC WHEN PFRMD 05/26/2018 Colonoscopy ESOPHAGOGASTRODUODENOSCOPY TRANSORAL DIAGNOSTIC 05/26/2018 EGD ESOPHAGOGASTRODUODENOSCOPY TRANSORAL DIAGNOSTIC 04/02/2022 EYE SURGERY HX HEMORRHOID: RUBBERBAND, SINGLE/MULTIPLE 10/04/2021 HEMORRHOID;BAND LIGAT, SNGL/MUL 04/02/2022 HEMORRHOIDECTOMY INTERNAL RUBBER BAND LIGATIONS 05/26/2018 PROCEDURE RM-COLONSCOPY W/BX 04/02/2022 ALLERGIES Vicodin [Hydrocodone-Acetaminophen] MEDICATIONS flecainide (TAMBOCOR) 100 mg tablet Take 100 mg by mouth as needed. LORazepam (ATIVAN) 0.5 mg Take 1 tablet by mouth three times a day as needed (anxiety) for up to 90 days. dilTIAZem CD (CARDIZEM CD, CARTIA XT) 240 mg 24 hr capsule Take 1 capsule by mouth once daily. aspirin, enteric coated (ECOTRIN LOW STRENGTH) 81 mg EC tablet Take 81 mg by mouth once daily. benazepril (LOTENSIN) 20 mg tablet Take 1 tablet by mouth two times a day. atorvastatin (LIPITOR) 20 mg tablet Take 1 tablet by mouth once daily. triamcinolone acetonide (NASACORT NASAL) Use in the nose. fexofenadine (SHANNAN) 180 mg tablet Take 180 mg by mouth once daily. calcium carbonate (TUMS ORAL) Take 2 tablets by mouth as needed. hydroCHLOROthiazide (HYDRODIURIL, ESIDRIX) 12.5 mg tablet Take 12.5 mg by mouth twice daily. melatonin 3 mg capsules Take 3 mg by mouth at bedtime as needed. potassium chloride (K-TAB) 10 mEq tablet Take 10 mEq by mouth once daily. metoprolol tartrate, short acting, (LOPRESSOR) 100 mg tablet Take 100 mg by mouth twice daily. FAMILY HISTORY Problem Relation Age of Onset Heart Mother Valve Replacement COPD Mother other (history of smoking) Mother Hypertension Father Kidney failure Father kidney disease - on dialysis Heart disease Father heart valve problem Hypertension Sister Hyperlipidemia Sister other (sudden infant ) Brother other (sudden infant ) Brother Thyroid Son Prostate Cancer No Family History none Social History Tobacco Use Smoking status: Never Smokeless tobacco: Never Vaping Use Vaping status: Never Used Substance Use Topics Alcohol use: Yes Comment: very occasional Drug use: No ASSESSMENT/PLAN: 1. URI, acute - ICD9: 465.9, ICD10: J06.9 (primary diagnosis) - INFLUENZA AANDB MOLECULAR (POC) - pos 2. Flu - ICD9: 487.1, ICD10: J11.1 - OSELTAMIVIR 75 MG CAPSULE Last gfr 100 Prescription instructions reviewed with patient as applicable. Potential red flag symptoms discussed with the patient. Reviewed appropriate action plan to take if red flag symptoms occur. Patient agreeable to treatment plan. Charlene Beck APRN.[facility]02-10-2025 History of Present illness Narrative* Charlene Beck APRN.[facility] - 08/02/2024 10:16 AM EST CC: Patient presents with: Cough: Chest congestion, sinus, fever, TREVIÑO x 2 days HPI: Andrea Piedra is a 64 year old male who presents to the office with complaint of head congestion, cough, nonproductive, sinus symptoms, and fever for 2 days. Symptoms are staying the same. Associated symptoms includes headache and body aches. Denies wheezing, dyspnea, nausea, and vomiting . Treatments tried include nothing so far. with no relief of symptoms. Sick contacts: unknown. History of asthma, frequent episodes of bronchitis, chronic bronchitis, bronchiectasis or COPD: No The ROS is otherwise negative. The patient's pmh, medications, allergies, and past visits are reviewed. PHYSICAL EXAM: BP 120/82 Pulse 74 Temp 37.4 C (99.4 F) Resp 20 Wt 108.8 kg (239 lb 13.8 oz) SpO2 96% BMI 34.42 kg/m General appearance: alert, cooperative, pleasant, in no acute distress Head: Normocephalic Eyes: EOM's intact, conjunctiva pink and moist, no icterus, sclera white, non-injected Ears: Right ear: External ear/canal- Normal, TM - clear with good landmarks. Left ear: External ear/canal- Normal, TM - clear with good landmarks Oropharynx:moist without lesions, No erythema, exudates or tonsillar hypertrophy. Heart: Negative. RRR without obvious murmur, gallop, or rubs. No ectopy. Lungs: clear to auscultation, without rales or wheeze, good air exchange PAST MEDICAL HISTORY Diagnosis Date Anticoagulant long-term use Arrhythmia At risk for stroke [id number] = 1 (HTN) Essential hypertension Essential hypertension Generalized anxiety disorder Hemorrhage of gastrointestinal tract, unspecified Hemorrhoids Paroxysmal atrial fibrillation (HCC) Rectal bleeding 09/2021 Sleep apnea does not use cpap. Snoring PAST SURGICAL HISTORY Procedure Laterality Date COLONOSCOPY FLX DX W/COLLJ SPEC WHEN PFRMD 07/11/2008 Colonoscopy COLONOSCOPY FLX DX W/COLLJ SPEC WHEN PFRMD 05/26/2018 Colonoscopy ESOPHAGOGASTRODUODENOSCOPY TRANSORAL DIAGNOSTIC 05/26/2018 EGD ESOPHAGOGASTRODUODENOSCOPY TRANSORAL DIAGNOSTIC 04/02/2022 EYE SURGERY HX HEMORRHOID: RUBBERBAND, SINGLE/MULTIPLE 10/04/2021 HEMORRHOID;BAND LIGAT, SNGL/MUL 04/02/2022 HEMORRHOIDECTOMY INTERNAL RUBBER BAND LIGATIONS 05/26/2018 PROCEDURE RM-COLONSCOPY W/BX 04/02/2022 ALLERGIES Vicodin [Hydrocodone-Acetaminophen] MEDICATIONS flecainide (TAMBOCOR) 100 mg tablet Take 100 mg by mouth as needed. LORazepam (ATIVAN) 0.5 mg Take 1 tablet by mouth three times a day as needed (anxiety) for up to 90days. dilTIAZem CD (CARDIZEM CD, CARTIA XT) 240 mg 24 hr capsule Take 1 capsule by mouth once daily. aspirin, enteric coated (ECOTRIN LOW STRENGTH) 81 mg EC tablet Take 81 mg by mouth once daily. benazepril (LOTENSIN) 20 mg tablet Take 1 tablet by mouth two times a day. atorvastatin (LIPITOR) 20 mg tablet Take 1 tablet by mouth once daily. triamcinolone acetonide (NASACORT NASAL) Use in the nose. fexofenadine (SHANNAN) 180 mg tablet Take 180 mg by mouth once daily. calcium carbonate (TUMS ORAL) Take 2 tablets by mouth as needed. hydroCHLOROthiazide (HYDRODIURIL, ESIDRIX) 12.5 mg tablet Take 12.5 mg by mouth twice daily. melatonin 3 mg capsules Take 3 mg by mouth at bedtime as needed. potassium chloride (K-TAB) 10 mEq tablet Take 10 mEq by mouth once daily. metoprolol tartrate, short acting, (LOPRESSOR) 100 mg tablet Take 100 mg by mouth twice daily. FAMILY HISTORY Problem Relation Age of Onset Heart Mother Valve Replacement COPD Mother other (history of smoking) Mother Hypertension Father Kidney failure Father kidney disease - on dialysis Heart disease Father heart valve problem Hypertension Sister Hyperlipidemia Sister other (sudden ) Brother other (sudden ) Brother Thyroid Son Prostate Cancer No Family History none Social History Tobacco Use Smoking status: Never Smokeless tobacco: Never Vaping Use Vaping status: Never Used Substance Use Topics Alcohol use: Yes Comment: very occasional Drug use: No ASSESSMENT/PLAN: 1. URI, acute - ICD9: 465.9, ICD10: J06.9 (primary diagnosis) - INFLUENZA A&B MOLECULAR (POC) - pos 2. Flu - ICD9: 487.1, ICD10: J11.1 - OSELTAMIVIR 75 MG CAPSULE Last gfr 100 Prescription instructions reviewed with patient as applicable. Potential red flag symptoms discussed with the patient. Reviewed appropriate action plan to take if red flag symptoms occur. Patient agreeable to treatment plan. Charlene Beck APRN.JULIAN documented in this encounterSelect [facility] [place] History of Present illness Narrative* Keith Ventura RT(R) - 07/09/2024 3:50 PM EST Radiology Service Progress Note PATIENT NAME: Andrea Piedra DATE OF SERVICE: July 09, 2024 TIME: 3:54 PM PATIENT IDENTITY VERIFICATION COMPLETED USING TWO (2) IDENTIFIERS: Name and Date of confirmedby patient verbally. FALL SCREENING: Has the patient had 2 falls in the last year or 1 fall with injury or currently using an Ambulatory Assistive Device (Walker, Cane, Wheelchair, Crutches, etc.)? No PATIENT GENDER DATA: Assigned male at PATIENT RELEVANT IMPLANT DATA REVIEWED: Yes PATIENT PRESENTS WITH AN IMPLANTABLE OR ATTACHED CASTING OPERATOR: No RADIOLOGY DEPARTMENT: General X-ray: Exam(s) Completed: Lower Extremity X- Ray(s): Ankle, Left PERIPHERAL IV DATA: Not applicable SIGNED BY: RT Elda(R) July 09, 2024 3:54 PM [facility] [place] NoteHNO ID: [id number] Author: KEITH VENTURA RT(R) Service: ? Author Type: Copy Supervisor Type: Progress Notes Filed: 07/09/2024 16:03 Note Text: Radiology Service Progress Note PATIENT NAME: Andrea Piedra DATE OF SERVICE: July 09, 2024 TIME: 3:54 PM PATIENT IDENTITY VERIFICATION COMPLETED USING TWO (2) IDENTIFIERS: Name and Date of confirmed by patient verbally. FALL SCREENING: Has the patient had 2 falls in the last year or 1 fall with injury or currently using an Ambulatory Assistive Device (Walker, Cane, Wheelchair, Crutches, etc.)? No PATIENT GENDER DATA: Assigned male at PATIENT RELEVANT IMPLANT DATA REVIEWED: Yes PATIENT PRESENTS WITH AN IMPLANTABLE OR ATTACHED CASTING OPERATOR: No RADIOLOGY DEPARTMENT: General X-ray: Exam(s) Completed: Lower Extremity X-Ray(s): Ankle, Left PERIPHERAL IV DATA: Not applicable SIGNED BY: RT Elda(R) July 09, 2024 3:54 [facility]01-17-2025 NoteHNO ID: [id number] Author: ALAN WARD MD Service: ? Author Type: Physician Type: Progress Notes Filed: 07/09/2024 15:38 Note Text: Patient presents with: Follow Up HPI: Patient presents today for office visit for follow up. Persistent B/L shoulder pain. No longer doing PT. Completed Prednisone. Took the edge off but did not take pain completely away. Today also mentions he's having pain in his left ankle. Started 1.5 weeks ago. No injury. No swelling. Not giving out. Ankle feels strong. Not hot or red. Bp well controlled. No chest pain or shortness of breath No edema. Remains on lipitor. Ramsey: still seeing sleep med Still seeing cardiology. No issues with anxiety. MEDICATIONS: Current Outpatient Medications Medication Sig flecainide (TAMBOCOR) 100 mg tablet Take 100 mg by mouth as needed. LORazepam (ATIVAN) 0.5 mg Take 1 tablet by mouth three times a day as needed (anxiety) for up to 90 days. dilTIAZem CD (CARDIZEM CD, CARTIA XT) 240 mg 24 hr capsule Take 1 capsule by mouth once daily. aspirin, enteric coated (ECOTRIN LOW STRENGTH) 81 mg EC tablet Take 81 mg by mouth once daily. benazepril (LOTENSIN) 20 mg tablet Take 1 tablet by mouth two times a day. atorvastatin (LIPITOR) 20 mg tablet Take 1 tablet by mouth once daily. triamcinolone acetonide (NASACORT NASAL) Use in the nose. fexofenadine (SHANNAN) 180 mg tablet Take 180 mg by mouth once daily. calcium carbonate (TUMS ORAL) Take 2 tablets by mouth as needed. hydroCHLOROthiazide (HYDRODIURIL, ESIDRIX) 12.5 mg tablet Take 12.5 mg by mouth twice daily. melatonin 3 mg capsules Take 3 mg by mouth at bedtime as needed. potassium chloride (K-TAB) 10 mEq tablet Take 10 mEq by mouth once daily. metoprolol tartrate, short acting, (LOPRESSOR) 100 mg tablet Take 100 mg by mouth twice daily. No current facility-administered medications for this visit. ALLERGIES: ALLERGIES Allergen Reactions Vicodin [Hydrocodon* Mental Status Change PAST MEDICAL HISTORY Diagnosis Date Anticoagulant long-term use Arrhythmia At risk for stroke [id number] = 1 (HTN) Essential hypertension Essential hypertension Generalized anxiety disorder Hemorrhage of gastrointestinal tract, unspecified Hemorrhoids Paroxysmal atrial fibrillation (HCC) Rectal bleeding 09/2021 Sleep apnea does not use cpap. Snoring PAST SURGICAL HISTORY Procedure Laterality Date COLONOSCOPY FLX DX W/COLLJ SPEC WHEN PFRMD 07/11/2008 Colonoscopy COLONOSCOPY FLX DX W/COLLJ SPEC WHEN PFRMD 05/26/2018 Colonoscopy ESOPHAGOGASTRODUODENOSCOPY TRANSORAL DIAGNOSTIC 05/26/2018 EGD ESOPHAGOGASTRODUODENOSCOPY TRANSORAL DIAGNOSTIC 04/02/2022 EYE SURGERY HX HEMORRHOID: RUBBERBAND, SINGLE/MULTIPLE 10/04/2021 HEMORRHOID;BAND LIGAT, SNGL/MUL 04/02/2022 HEMORRHOIDECTOMY INTERNAL RUBBER BAND LIGATIONS 05/26/2018 PROCEDURE RM-COLONSCOPY W/BX 04/02/2022 FAMILY HISTORY Problem Relation Age of Onset Heart Mother Valve Replacement COPD Mother other (history of smoking) Mother Hypertension Father Kidney failure Father kidney disease - on dialysis Heart disease Father heart valve problem Hypertension Sister Hyperlipidemia Sister other (sudden ) Brother other (sudden infant ) Brother Thyroid Son Prostate Cancer No Family History none Social History Tobacco Use Smoking status: Never Smokeless tobacco: Never Vaping Use Vaping status: Never Used Substance Use Topics Alcohol use: Yes Comment: very occasional Drug use: No Reviewed current medications, allergies, past medical history, surgical history, family history and social history today. REVIEW OF SYSTEMS All other reviewed and negative other than HPI. VITALS: BP 118/68 Pulse 67 Ht 177.8 cm (5' 10") Wt 109.3 kg (241 lb) SpO2 95% BMI 34.58 kg/m? Last 4 Encounter Wt Readings: Date: Wt: 07/09/2024 109.3 kg (241 lb) 06/07/2024 109.8 kg (242 lb) 03/08/2024 106.6 kg (235 lb 0.2 oz) 01/14/2024 105.2 kg (232 lb) PHYSICAL EXAMINATION: General appearance: Well appearing, alert, in no acute distress, well-hydrated, well nourished. Skin: Skin color, texture, turgor normal, no suspicious rashes or lesions Head: Normocephalic, no masses, lesions, tenderness or abnormalities Shoulder exam shows normal range of motion. Negative empty can. Ankle shows slight swelling over medial malleolus. No redness or warmth. Negative drawer. ASSESSMENT/PLAN: 1. Chronic pain of both shoulders - ICD9: 719.41, 338.29, ICD10: M25.511, G89.29, M25.512 (primary diagnosis) - CONSULT TO ORTHOPAEDICS 2. Essential hypertension - ICD9: 401.9, ICD10: I10 - Controlled - Continue current medications 3. Mixed hyperlipidemia - ICD9: 272.2, ICD10: E78.2 - Controlled - Continue current medications 4. Paroxysmal atrial fibrillation (HCC) - ICD9: 427.31, ICD10: I48.0 - stable. 5. Sprain of ligament of left ankle, initial encou (more content not included)...[facility]01-17-2025 History of Present illness Narrative* Alan Ward MD - 07/09/2024 3:09 PM EST Patient presents with: Follow Up HPI: Patient presents today for office visit for follow up. Persistent B/L shoulder pain. No longer doing PT. Completed Prednisone. Took the edge off but did not take pain completely away. Today also mentions he's having pain in his left ankle. Started 1.5 weeks ago. No injury. No swelling. Not giving out. Ankle feels strong. Not hot or red. Bp well controlled. No chest pain or shortness of breath No edema. Remains on lipitor. Ramsey: still seeing sleep med Still seeing cardiology. No issues with anxiety. MEDICATIONS: Current Outpatient Medications Medication Sig flecainide (TAMBOCOR) 100 mg tablet Take 100 mg by mouth as needed. LORazepam (ATIVAN) 0.5 mg Take 1 tablet by mouth three times a day as needed (anxiety) for up to 90days. dilTIAZem CD (CARDIZEM CD, CARTIA XT) 240 mg 24 hr capsule Take 1 capsule by mouth once daily. aspirin, enteric coated (ECOTRIN LOW STRENGTH) 81 mg EC tablet Take 81 mg by mouth once daily. benazepril (LOTENSIN) 20 mg tablet Take 1 tablet by mouth two times a day. atorvastatin (LIPITOR) 20 mg tablet Take 1 tablet by mouth once daily. triamcinolone acetonide (NASACORT NASAL) Use in the nose. fexofenadine (SHANNAN) 180 mg tablet Take 180 mg by mouth once daily. calcium carbonate (TUMS ORAL) Take 2 tablets by mouth as needed. hydroCHLOROthiazide (HYDRODIURIL, ESIDRIX) 12.5 mg tablet Take 12.5 mg by mouth twice daily. melatonin 3 mg capsules Take 3 mg by mouth at bedtime as needed. potassium chloride (K-TAB) 10 mEq tablet Take 10 mEq by mouth once daily. metoprolol tartrate, short acting, (LOPRESSOR) 100 mg tablet Take 100 mg by mouth twice daily. No current facility-administered medications for this visit. ALLERGIES: ALLERGIES Allergen Reactions Vicodin [Hydrocodon* Mental Status Change PAST MEDICAL HISTORY Diagnosis Date Anticoagulant long-term use Arrhythmia At risk for stroke [id number] = 1 (HTN) Essential hypertension Essential hypertension Generalized anxiety disorder Hemorrhage of gastrointestinal tract, unspecified Hemorrhoids Paroxysmal atrial fibrillation (HCC) Rectal bleeding 09/2021 Sleep apnea does not use cpap. Snoring PAST SURGICAL HISTORY Procedure Laterality Date COLONOSCOPY FLX DX W/COLLJ SPEC WHEN PFRMD 07/11/2008 Colonoscopy COLONOSCOPY FLX DX W/COLLJ SPEC WHEN PFRMD 05/26/2018 Colonoscopy ESOPHAGOGASTRODUODENOSCOPY TRANSORAL DIAGNOSTIC 05/26/2018 EGD ESOPHAGOGASTRODUODENOSCOPY TRANSORAL DIAGNOSTIC 04/02/2022 EYE SURGERY HX HEMORRHOID: RUBBERBAND, SINGLE/MULTIPLE 10/04/2021 HEMORRHOID;BAND LIGAT, SNGL/MUL 04/02/2022 HEMORRHOIDECTOMY INTERNAL RUBBER BAND LIGATIONS 05/26/2018 PROCEDURE RM-COLONSCOPY W/BX 04/02/2022 FAMILY HISTORY Problem Relation Age of Onset Heart Mother Valve Replacement COPD Mother other (history of smoking) Mother Hypertension Father Kidney failure Father kidney disease - on dialysis Heart disease Father heart valve problem Hypertension Sister Hyperlipidemia Sister other (sudden ) Brother other (sudden infant ) Brother Thyroid Son Prostate Cancer No Family History none Social History Tobacco Use Smoking status: Never Smokeless tobacco: Never Vaping Use Vaping status: Never Used Substance Use Topics Alcohol use: Yes Comment: very occasional Drug use: No Reviewed current medications, allergies, past medical history, surgical history, family history andsocial history today. REVIEW OF SYSTEMS All other reviewed and negative other than HPI. VITALS: BP 118/68 Pulse 67 Ht 177.8 cm (5' 10") Wt 109.3 kg (241 lb) SpO2 95% BMI 34.58 kg/m Last 4 Encounter Wt Readings: Date: Wt: 07/09/2024 109.3 kg (241 lb) 06/07/2024 109.8 kg (242 lb) 03/08/2024 106.6 kg (235 lb 0.2 oz) 01/14/2024 105.2 kg (232 lb) PHYSICAL EXAMINATION: General appearance: Well appearing, alert, in no acute distress, well-hydrated, well nourished. Skin: Skin color, texture, turgor normal, no suspicious rashes or lesions Head: Normocephalic, no masses, lesions, tenderness or abnormalities Shoulder exam shows normal range of motion. Negative empty can. Ankle shows slight swelling over medial malleolus. No redness or warmth. Negative drawer. ASSESSMENT/PLAN: 1. Chronic pain of both shoulders - ICD9: 719.41, 338.29, ICD10: M25.511, G89.29, M25.512 (primary diagnosis) - CONSULT TO ORTHOPAEDICS 2. Essential hypertension - ICD9: 401.9, ICD10: I10 - Controlled - Continue current medications 3. Mixed hyperlipidemia - ICD9: 272.2, ICD10: E78.2 - Controlled - Continue current medications 4. Paroxysmal atrial fibrillation (HCC) - ICD9: 427.31, ICD10: I48.0 - stable. 5. Sprain of ligament of left ankle, initial encounter - ICD9: 845.00, ICD10: S93.402A - RICE and ankle exercises. - XR ANKLE GENERAL 3V AP/LAT/OBL LEFT Alan Ward MD documented [facility] [place] Evaluation note* Diagnosis Onset Date Resolution Status Admit Date RAMSEY (obstructive sleep apnea) chroni c June 29, 2024 10:05am [facility] Work Phone: [phone]) 770-540912-20-2024 Telephone encounter Note* Telephone Encounter - Jolly Miramontes LPN - 06/11/2024 7:43 AM EST Prescription Refill Information The patient has been identified by name and date of : Yes Caregiver verified no other encounters exist for this prescription request: Yes Caregiver confirmed with patient/requestor that no other refills are due, in the near future, with this provider at this time: Yes The last office visit in the department: 03/08/2024 Does the patient have a future office visit with this provider/department: Yes Requested Prescriptions Pending Prescriptions Disp Refills LORazepam (ATIVAN) 0.5 mg 90 tablet 1 Sig: Take 1 tablet by mouth three times a day as needed (anxiety) for up to 90 days. Jolly Miramontes LPN June 11, 2024 7:43 AM [facility] [place]12-20-2024 Miscellaneous Notes* Telephone Encounter - Jolly Miramontes LPN - 06/11/2024 7:43 AM EST Prescription Refill Information The patient has been identified by name and date of : Yes Caregiver verified no other encounters exist for this prescription request: Yes Caregiver confirmed with patient/requestor that no other refills are due, in the near future, with this provider at this time: Yes The last office visit in the department: 03/08/2024 Does the patient have a future office visit with this provider/department: Yes Requested Prescriptions Pending Prescriptions Disp Refills LORazepam (ATIVAN) 0.5 mg 90 tablet 1 Sig: Take 1 tablet by mouth three times a day as needed (anxiety) for up to 90 days. Jolly Miramontes LPN June 11, 2024 7:43 AM documented in this encounter[facility] [place]-2024 Telephone encounter Note * Telephone Encounter - Jolly Miramontes LPN - 06/11/2024 7:29 AM EST Prescription Refill Information The patient has been identified by name and date of : Yes Caregiver verified no other encounters exist for this prescription request: Yes Caregiver confirmed with patient/requestor that no other refills are due, in the near future, with this provider at this time: Yes The last office visit in the department: 03/08/2024 Does the patient have a future office visit with this provider/department: Yes Requested Prescriptions Pending Prescriptions Disp Refills dilTIAZem CD (CARDIZEM CD, CARTIA XT) 240 mg 24 hr capsule 90 capsule 1 Sig: Take 1 capsule by mouth once daily. Jolly Miramontes LPN June 11, 2024 7:30 AM [facility] [place]12-20-2024 Miscellaneous Notes* Telephone Encounter - Jolly Miramontes LPN - 06/11/2024 7:29 AM EST Prescription Refill Information The patient has been identified by name and date of : Yes Caregiver verified no other encounters exist for this prescription request: Yes Caregiver confirmed with patient/requestor that no other refills are due, in the near future, with this provider at this time: Yes The last office visit in the department: 03/08/2024 Does the patient have a future office visit with this provider/department: Yes Requested Prescriptions Pending Prescriptions Disp Refills dilTIAZem CD (CARDIZEM CD, CARTIA XT) 240 mg 24 hr capsule 90 capsule 1 Sig: Take 1 capsule by mouth once daily. Jolly Miramontes LPN June 11, 2024 7:30 AM documented in this encounterSelect [facility] [place]-16-2024 NoteHNO ID: [id number] Author: ALAN WARD MD Service: ? Author Type: Physician Type: Progress Notes Filed: 06/07/2024 18:17 Note Text: Patient presents with: Sinusitis HPI: Patient presents today for office visit for follow up. ENT: Patient complains of sinus pressure. Duration: 10 days Fever: No. Headache: Yes. Sore throat: No. Ear pain: muffled. Nasal drainage: Yes. Cough: very little. Shortness of breath: No. Nausea: No. Vomiting: No. Diarrhea: No. Previous treatment: using tylenol. Very fatigued. Not getting worse but not improving. Having sinus pressure. "Bad head cold" that did not go away. No covid done at home. Follow up shoulder pain. Going to PT but didn't feel like was getting very far. Was ordered Celebrex did take it and took the edge off. Afraid to continue take Celebrex until he met with PCP to discuss medication. Back is much better. MEDICATIONS: Current Outpatient Medications Medication Sig LORazepam (ATIVAN) 0.5 mg Take 1 tablet by mouth three times a day as needed (anxiety) for up to 90 days. aspirin, enteric coated (ECOTRIN LOW STRENGTH) 81 mg EC tablet Take 81 mg by mouth once daily. benazepril (LOTENSIN) 20 mg tablet Take 1 tablet by mouth two times a day. dilTIAZem CD (CARDIZEM CD, CARTIA XT) 240 mg 24 hr capsule Take 1 capsule by mouth once daily. atorvastatin (LIPITOR) 20 mg tablet Take 1 tablet by mouth once daily. triamcinolone acetonide (NASACORT NASAL) Use in the nose. fexofenadine (SHANNAN) 180 mg tablet Take 180 mg by mouth once daily. calcium carbonate (TUMS ORAL) Take 2 tablets by mouth as needed. hydroCHLOROthiazide (HYDRODIURIL, ESIDRIX) 12.5 mg tablet Take 12.5 mg by mouth twice daily. melatonin 3 mg capsules Take 3 mg by mouth at bedtime as needed. potassium chloride (K-TAB) 10 mEq tablet Take 10 mEq by mouth once daily. metoprolol tartrate, short acting, (LOPRESSOR) 100 mg tablet Take 100 mg by mouth twice daily. No current facility-administered medications for this visit. ALLERGIES: ALLERGIES Allergen Reactions Vicodin [Hydrocodon* Mental Status Change PAST MEDICAL HISTORY Diagnosis Date Anticoagulant long-term use Arrhythmia At risk for stroke [id number] = 1 (HTN) Essential hypertension Essential hypertension Generalized anxiety disorder Hemorrhage of gastrointestinal tract, unspecified Hemorrhoids Paroxysmal atrial fibrillation (HCC) Rectal bleeding 09/2021 Sleep apnea does not use cpap. Snoring PAST SURGICAL HISTORY Procedure Laterality Date COLONOSCOPY FLX DX W/COLLJ SPEC WHEN PFRMD 07/11/2008 Colonoscopy COLONOSCOPY FLX DX W/COLLJ SPEC WHEN PFRMD 05/26/2018 Colonoscopy ESOPHAGOGASTRODUODENOSCOPY TRANSORAL DIAGNOSTIC 05/26/2018 EGD ESOPHAGOGASTRODUODENOSCOPY TRANSORAL DIAGNOSTIC 04/02/2022 EYE SURGERY HX HEMORRHOID: RUBBERBAND, SINGLE/MULTIPLE 10/04/2021 HEMORRHOID;BAND LIGAT, SNGL/MUL 04/02/2022 HEMORRHOIDECTOMY INTERNAL RUBBER BAND LIGATIONS 05/26/2018 PROCEDURE RM-COLONSCOPY W/BX 04/02/2022 FAMILY HISTORY Problem Relation Age of Onset Heart Mother Valve Replacement COPD Mother other (history of smoking) Mother Hypertension Father Kidney failure Father kidney disease - on dialysis Heart disease Father heart valve problem Hypertension Sister Hyperlipidemia Sister other (sudden ) Brother other (sudden infant ) Brother Thyroid Son Prostate Cancer No Family History none Social History Tobacco Use Smoking status: Never Smokeless tobacco: Never Vaping Use Vaping status: Never Used Substance Use Topics Alcohol use: Yes Comment: very occasional Drug use: No Reviewed current medications, allergies, past medical history, surgical history, family history and social history today. REVIEW OF SYSTEMS All other reviewed and negative other than HPI. VITALS: BP 138/82 Pulse 68 Temp 36.3 ?C (97.4 ?F) (Tympanic) Wt 109.8 kg (242 lb) SpO2 98% BMI 34.72 kg/m? Last 4 Encounter Wt Readings: Date: Wt: 03/08/2024 106.6 kg (235 lb 0.2 oz) 01/14/2024 105.2 kg (232 lb) 11/30/2023 106.1 kg (233 lb 14.5 oz) 09/05/2023 106.1 kg (234 lb) PHYSICAL EXAMINATION: General appearance: Well appearing, alert, in no acute distress, well-hydrated, well nourished. Skin: Skin color, texture, turgor normal, no suspicious rashes or lesions Head: Normocephalic, no masses, lesions, tenderness or abnormalities Eyes: Anicteric sclera. Pupils are equally round and reactive to light. Extraocular movements are intact. Ears: External ears normal, canals clear. Tms are retracted. Nose/Sinuses: Nares normal, septum midline, mucosa normal, no drainage or sinus tenderness Oropharynx: Lips, mucosa, and tongue normal, teeth and gums normal, oropharynx normal Neck: Supple, no adenopath Lungs: Lungs clear to auscultation. No wheezing, rhonchi, rales Heart: RRR without murmur, gallop, or rubs. No ectopy Abdo (more content not included)...[facility]12-16-2024 History of Present illness Narrative* Alan Ward MD - 06/07/2024 5:54 PM EST Patient presents with: Sinusitis HPI: Patient presents today for office visit for follow up. ENT: Patient complains of sinus pressure. Duration: 10 days Fever: No. Headache: Yes. Sore throat: No. Ear pain: muffled. Nasal drainage: Yes. Cough: very little. Shortness of breath: No. Nausea: No. Vomiting: No. Diarrhea: No. Previous treatment: using tylenol. Very fatigued. Not getting worse but not improving. Having sinus pressure. "Bad head cold" that did not go away. No covid done at home. Follow up shoulder pain. Going to PT but didn't feel like was getting very far. Was ordered Celebrex did take it and took the edge off. Afraid to continue take Celebrex until he met with PCP to discuss medication. Back is much better. MEDICATIONS: Current Outpatient Medications Medication Sig LORazepam (ATIVAN) 0.5 mg Take 1 tablet by mouth three times a day as needed (anxiety) for up to 90days. aspirin, enteric coated (ECOTRIN LOW STRENGTH) 81 mg EC tablet Take 81 mg by mouth once daily. benazepril (LOTENSIN) 20 mg tablet Take 1 tablet by mouth two times a day. dilTIAZem CD (CARDIZEM CD, CARTIA XT) 240 mg 24 hr capsule Take 1 capsule by mouth once daily. atorvastatin (LIPITOR) 20 mg tablet Take 1 tablet by mouth once daily. triamcinolone acetonide (NASACORT NASAL) Use in the nose. fexofenadine (SHANNAN) 180 mg tablet Take 180 mg by mouth once daily. calcium carbonate (TUMS ORAL) Take 2 tablets by mouth as needed. hydroCHLOROthiazide (HYDRODIURIL, ESIDRIX) 12.5 mg tablet Take 12.5 mg by mouth twice daily. melatonin 3 mg capsules Take 3 mg by mouth at bedtime as needed. potassium chloride (K-TAB) 10 mEq tablet Take 10 mEq by mouth once daily. metoprolol tartrate, short acting, (LOPRESSOR) 100 mg tablet Take 100 mg by mouth twice daily. No current facility-administered medications for this visit. ALLERGIES: ALLERGIES Allergen Reactions Vicodin [Hydrocodon* Mental Status Change PAST MEDICAL HISTORY Diagnosis Date Anticoagulant long-term use Arrhythmia At risk for stroke [id number] = 1 (HTN) Essential hypertension Essential hypertension Generalized anxiety disorder Hemorrhage of gastrointestinal tract, unspecified Hemorrhoids Paroxysmal atrial fibrillation (HCC) Rectal bleeding 09/2021 Sleep apnea does not use cpap. Snoring PAST SURGICAL HISTORY Procedure Laterality Date COLONOSCOPY FLX DX W/COLLJ SPEC WHEN PFRMD 07/11/2008 Colonoscopy COLONOSCOPY FLX DX W/COLLJ SPEC WHEN PFRMD 05/26/2018 Colonoscopy ESOPHAGOGASTRODUODENOSCOPY TRANSORAL DIAGNOSTIC 05/26/2018 EGD ESOPHAGOGASTRODUODENOSCOPY TRANSORAL DIAGNOSTIC 04/02/2022 EYE SURGERY HX HEMORRHOID: RUBBERBAND, SINGLE/MULTIPLE 10/04/2021 HEMORRHOID;BAND LIGAT, SNGL/MUL 04/02/2022 HEMORRHOIDECTOMY INTERNAL RUBBER BAND LIGATIONS 05/26/2018 PROCEDURE RM-COLONSCOPY W/BX 04/02/2022 FAMILY HISTORY Problem Relation Age of Onset Heart Mother Valve Replacement COPD Mother other (history of smoking) Mother Hypertension Father Kidney failure Father kidney disease - on dialysis Heart disease Father heart valve problem Hypertension Sister Hyperlipidemia Sister other (sudden ) Brother other (sudden ) Brother Thyroid Son Prostate Cancer No Family History none Social History Tobacco Use Smoking status: Never Smokeless tobacco: Never Vaping Use Vaping status: Never Used Substance Use Topics Alcohol use: Yes Comment: very occasional Drug use: No Reviewed current medications, allergies, past medical history, surgical history, family history andsocial history today. REVIEW OF SYSTEMS All other reviewed and negative other than HPI. VITALS: BP 138/82 Pulse 68 Temp 36.3 C (97.4 F) (Tympanic) Wt 109.8 kg (242 lb) SpO2 98% BMI 34.72 kg/m Last 4 Encounter Wt Readings: Date: Wt: 03/08/2024 106.6 kg (235 lb 0.2 oz) 01/14/2024 105.2 kg (232 lb) 11/30/2023 106.1 kg (233 lb 14.5 oz) 09/05/2023 106.1 kg (234 lb) PHYSICAL EXAMINATION: General appearance: Well appearing, alert, in no acute distress, well-hydrated, well nourished. Skin: Skin color, texture, turgor normal, no suspicious rashes or lesions Head: Normocephalic, no masses, lesions, tenderness or abnormalities Eyes: Anicteric sclera. Pupils are equally round and reactive to light. Extraocular movements are intact. Ears: External ears normal, canals clear. Tms are retracted. Nose/Sinuses: Nares normal, septum midline, mucosa normal, no drainage or sinus tenderness Oropharynx: Lips, mucosa, and tongue normal, teeth and gums normal, oropharynx normal Neck: Supple, no adenopath Lungs: Lungs clear to auscultation. No wheezing, rhonchi, rales Heart: RRR without murmur, gallop, or rubs. No ectopy Abdomen: Normal abdominal exam, Abdomen soft, non-tender. Bowel sounds normal. No masses, organomegaly Extremities: No deformities, edema, skin discoloration, clubbing or cyanosis. Good capillary refill. ASSESSMENT/PLAN: 1. Sinusitis, unspecified chronicity, unspecified location - ICD9: 473.9, ICD10: J32.9 (primary diagnosis) - mucinex prn. Discussed risks and benefits of new medication with the patient. Advised them to call if any side effects or questions. Red flags for re-assessment reviewed with patient in detail. Call if symptoms worsen at all or if not better in one to two weeks Reviewed diagnosis and treatment options in detail. Questions were answered. Patient expressed understanding of treatment plan. - AMOXICILLIN 875 MG TABLET 2. Acute shoulder pain, unspecified laterality - ICD9: 719.41, ICD10: M25.519 - Discussed risks and benefits of new medication with the patient. Advised them to call if any sideeffects or questions. Red flags for re-assessment reviewed with patient in detail. Call if symptoms worsen at all or if not better in one to two weeks Reviewed diagnosis and treatment options in detail. Questions were answered. Patient expressed understanding of treatment plan. - PREDNISONE 20 MG TABLET Alan Ward MD [facility] [place] Telephone encounter Note * Telephone Encounter - Kamilla Aly MA - 05/03/2024 2:50 PM EST Patient was informed of provider message. He is in agreement with plan. Kamilla Aly MA May 03, 2024 2:50 PM [facility] [place]11-11-2024 Miscellaneous Notes* Telephone Encounter - Kamilla Aly MA - 05/03/2024 2:50 PM EST Patient was informed of provider message. He is in agreement with plan. Kamilla Aly MA May 03, 2024 2:50 PM * Telephone Encounter - Jolly Wells APRN.CNP - 05/03/2024 2:27 PM EST We could start celebrex 200 mg daily for a month. Also, use ice 2 x day for 5 - 10 minutes a day. * Telephone Encounter - Samantha Boland MA - 05/03/2024 1:23 PM EST Patient was seen by provider 03/08 for shoulder pain Samantha Boland MA * Telephone Encounter - Erika Jung - 05/03/2024 12:07 PM EST Pt's appt on 05/05 had to be rescheduled for June with . Pt is requesting an anti-inflammatory medication for his shoulder. Pt stated he saw John Ornelas in Physical Therapy for his shoulder and was told that the exercises for his shoulder would not help until the inflammation goes down. Pt stated he is also taking aspirin for A-Fib, so he would need a medication he can take with aspirin. Please advise. documented [facility] [place] Telephone encounter Note * Telephone Encounter - Jolly Wells APRN.CNP - 05/03/2024 2:27 PM EST We could start celebrex 200 mg daily for a month. Also, use ice 2 x day for 5 - 10 minutes a day. [facility] [place] Telephone encounter Note* Telephone Encounter - Samantha Boland MA - 05/03/2024 1:23 PM EST Patient was seen by provider 03/08 for shoulder pain Samantha Boland MA [facility] [place]-11-2024 Telephone encounter Note* Telephone Encounter - Erika Jung - 05/03/2024 12:07 PM EST Pt's appt on 05/05 had to be rescheduled for June with . Pt is requesting an anti-inflammatory medication for his shoulder. Pt stated he saw John Ornelas in Physical Therapy for his shoulder and was told that the exercises for his shoulder would not help until the inflammation goes down. Pt stated he is also taking aspirin for A-Fib, so he would need a medication he can take with aspirin. Please advise. [facility] [place] History of Present illness Narrative* John Ornelas, PT - 04/30/2024 3:39 PM EST Images from the original note were not included. Episode Visit Count: 5 Therapist That Will Accept/Oversee The Plan Of Care: John Ornelas Start of Care Date: 03/31/24 Onset Date: 06/23/23 Plan of Care Certification Date: 12/20/22 Next Certification Due Date: 01/24/23 REHABILITATION AND SPORTS THERAPY PHYSICAL THERAPY DISCONTINUANCE OF CARE PLAN OF CARE UPDATE: Assessment: Andrea Piedra is discontinued from Physical Therapy services due to maximal benefit. and Patient/Clinician mutual decision to discontinue current plan of care.. Patient was seen for 5 visits from Start of Care Date: 03/31/24 to 04/30/2024 and treatment included: Therapeutic exercise, Manual therapy, and Self-longterm management. Goals updated on 04/30/2024. Goals for Episode of Care: established 03/31/24 Rush in home exercise program. Met Patient will decrease pain to 0/10 with functional activities and sleeping to allow patient to improve standing tolerance for ADLs and sleeping. Not met Patient will increase active ROM of B shoulders and Lumbar spine to WNL to allow pt to to improve performance of ADLs. Met for back, not for shoulders Patient will demonstrate increase in B shoulders and trunk/core strength to 4+/5 during manual muscle testing in order to improve function for basic self-care tasks, home management tasks, leisure / recreation skills, and prior functional tasks. Met for back, improved for shoulders but not met Perform rising from a chair and reaching to and above shoulder height with decreased report of symptoms/pain in 4-6 weeks.met for back, not for shoulders Perform sleeping without pain. Not met SUBJECTIVE: patient's back remains good, he continues his exercises and pain is fully managed. The R shoulder feels like it is getting no better, and the L is starting to hurt worse due to compensating for the right. At this point he feels like he would like to see a specialist for added help with the shoulder. Functional Limitations: reaching behind back, reaching overhead, use hand with arm at shoulder level, sleeping Pain: Pain Pain Level: 5 Pain Location: Shoulder - Right Description: Aching, Sore, Tightness Frequency: Continuous PROMIS Scales 04/30/2024 Higher is Better Phys Func - Score 43 (mild dysfunction) Phys Func - Percentile 24 Self-Eff Symptom - Score 41 (Average) Self-Eff Symptom - Percentile 18 T-scores: mean of general population = 50. 5 points is clinically meaningfully difference Percentiles provide an indication of how the patient's score ranks in relation to the general population. Higher percentile rankings indicate better function/quality of life. 50th percentile is the average of the general population and indicates half of respondents had a worse score. OBJECTIVE MEASURES WITH LEVEL OF FUNCTION: UE and Cervical Strength R UE Strength: 4+/5 scaption R Shoulder Flexion: 4+/5 R Shoulder Abduction (C5): 4+/5 R Shoulder Internal Rotation: 5/5 R Shoulder External Rotation: 4/5 LE Strength Trunk Strength: 4+/5 TREATMENT: Therapeutic Exercise: 1: Shoulder pulleys x3 min 2: reviewed back exercises Skilled Intervention: Patient was educated in proper exercise technique and purpose for exercises. Skilled judgment was used in selection of appropriate interventions. Correct performance of therapeutic exercises was facilitated with verbal, visual, and tactile cuing. Patient education as noted. Self-Skilled Nursing Management: 1: Time spent reviewing shoulder imaging and discussing anatomical considerations and rehab implications in conjunction with his objective measures and subjective symptoms Skilled Intervention: Skilled judgment in the selection of proper modification for activity of daily living/home management based on clinical presentation, deficits, and needs. Reviewed patient specific diagnosis in relation to activities of daily living/home management. Activity progression based on professional judgement. Billing Therapeutic Exercise Treatment Minutes: 10 Self-Care/Home Management Treatment Minutes: 20 Skilled Treatment Time Minutes (timed and untimed codes): 30 Total Session Time (minutes): 30 Session Start Time : 1308 Session Stop Time : 1338 John Ornelas PT documented in this encounter[facility] [place] History of Present illness Narrative* John Ornelas, PT - 04/27/2024 9:13 AM EST Episode Visit Count: 4 Therapist That Will Accept/Oversee The Plan Of Care: John Ornelas Start of Care Date: 03/31/24 Onset Date: 06/23/23 Plan of Care Certification Date: 12/20/22 Next Certification Due Date: 01/24/23 REHABILITATION AND SPORTS THERAPY PHYSICAL THERAPY TREATMENT NOTE ASSESSMENT: Andrea Piedra tolerated the session with decreased symptoms and no issues. He demonstrated difficulty with prolonged use of the RUE. The patient will continue to benefit from ongoing skilled physical therapy for reassessment by supervising therapist. PLAN FOR NEXT VISIT: [place] SUBJECTIVE: Patient's symptoms mostly holding steady right now with the back and shoulder. Back feels good, shoulder bothers him the more he uses it Pain: Pain Pain Level: 4 Pain Location: Shoulder - Right Description: Aching, Sore, Sharp OBJECTIVE MEASURES WITH LEVEL OF FUNCTION: TREATMENT: Therapeutic Exercise: 1: Shoulder pulleys x3 min 2: Wand ER 3x10 3: Shoulder flexion iso's 3x10, 3 sec holds 4: *Full can 2x10 5: *SL ER 2x10 6: Reviewed back exercises Skilled Intervention: Patient was educated in proper exercise technique and purpose for exercises. Skilled judgment was used in selection of appropriate interventions. Provided written instruction for home exercise program to facilitate proper performance and compliance. Correct performance of therapeutic exercises was facilitated with verbal, visual, and tactile cuing. Manual Therapy: 1: STM/CFM to R infraspinatus with push to tolerance Skilled Intervention: Manual skills to improve joint mobility, ROM, and decrease pain. Utilized anatomy knowledge of the therapist, and assessment of patient's response to intervention. Billing Therapeutic Exercise Treatment Minutes: 36 Manual TherapyTreatment Minutes: 8 Skilled Treatment Time Minutes (timed and untimed codes): 44 Total Session Time (minutes): 44 Session Start Time : 0816 Session Stop Time : 0900 John Ornelas PT * John Onrelas PT - 04/23/2024 8:53 AM EDT Program_ID:[id number] Access Code: [email or web address] URL: [email or web address] Date: 04-23-2024 Prepared By: John Ornelas Program Notes Exercises - Hooklying Single Knee to Chest - 1 x daily - 7 x weekly - 3 sets - 3 reps - Supine Double Knee to Chest - 1 x daily - 7 x weekly - 3 sets - 3 reps - Seated Shoulder Flexion AAROM with Joseph Behind - 1 x daily - 7 x weekly - 3 sets - 10 reps - Supine Piriformis Stretch with Foot on Ground - 1 x daily - 7 x weekly - 1 sets - 3 reps - Standing Shoulder External Rotation AAROM with Dowel - 1 x daily - 7 x weekly - 3 sets - 10 reps - Standing Shoulder Scaption - 1 x daily - 7 x weekly - 3 sets - 10 reps - Sidelying Shoulder External Rotation - 1 x daily - 7 x weekly - 3 sets - 10 reps documented in this encounterSelect [facility] [place] History of Present illness Narrative* John Ornelas, PT - 04/14/2024 11:12 AM EDT Episode Visit Count: 3 Therapist That Will Accept/Oversee The Plan Of Care: John Ornelas Start of Care Date: 03/31/24 Onset Date: 06/23/23 Plan of Care Certification Date: 12/20/22 Next Certification Due Date: 01/24/23 REHABILITATION AND SPORTS THERAPY PHYSICAL THERAPY TREATMENT NOTE ASSESSMENT: Andrea Piedra tolerated the session with decreased symptoms and no issues. He demonstrated improvements in LBP and difficulty with R shoulder pain. The patient will continue to benefit from ongoing skilled physical therapy to progress toward set goals. PLAN FOR NEXT VISIT: SUBJECTIVE: Patient notes that LBP is all but gone, but right shoulder pain is slightly better, butstill aching at night and sharper with quick motions like trying to swat a fly Pain: Pain Pain Level: 4 Pain Location: Shoulder - Right Description: Aching, Sore, Sharp Frequency: Intermittent OBJECTIVE MEASURES WITH LEVEL OF FUNCTION: Tenderness to R anterior deltoid reproduces familiar pain today TREATMENT: Therapeutic Exercise: 1: SKC 3x30 sec 2: DKC 3x30 sec 3: Supine piriformis stretching 3x30 seconds 4: Shoulder pulleys x3 min into flexion 5: *Wand ER 3x10 6: *Shoulder flexion iso's 3x10, 3 sec holds Skilled Intervention: Patient was educated in proper exercise technique and purpose for exercises. Skilled judgment was used in selection of appropriate interventions. Provided written instruction for home exercise program to facilitate proper performance and compliance. Correct performance of therapeutic exercises was facilitated with verbal, visual, and tactile cuing. Manual Therapy: 1: STM with push to tolerance to R anterior deltoid Skilled Intervention: Manual skills to improve joint mobility, ROM, and decrease pain. Utilized anatomy knowledge of the therapist, and assessment of patient's response to intervention. Billing Therapeutic Exercise Treatment Minutes: 25 Manual TherapyTreatment Minutes: 3 Skilled Treatment Time Minutes (timed and untimed codes): 28 Total Session Time (minutes): 28 Session Start Time : 1032 Session Stop Time : 1100 John Ornelas PT * John Ornelas PT - 04/14/2024 11:00 AM EDT Program_ID:[id number] Access Code: [email or web address] URL: [email or web address] Date: 04-14-2024 Prepared By: John Ornelas Program Notes Exercises - Hooklying Single Knee to Chest - 1 x daily - 7 x weekly - 3 sets - 3 reps - Supine Double Knee to Chest - 1 x daily - 7 x weekly - 3 sets - 3 reps - Seated Shoulder Flexion AAROM with Joseph Behind - 1 x daily - 7 x weekly - 3 sets - 10 reps - Scaption with Dumbbells - 1 x daily - 7 x weekly - 3 sets - 10 reps - Sidelying Shoulder ER with Towel and Dumbbell - 1 x daily - 7 x weekly - 3 sets - 10 reps - Supine Piriformis Stretch with Foot on Ground - 1 x daily - 7 x weekly - 1 sets - 3 reps - Standing Shoulder Abduction AAROM with Dowel - 1 x daily - 7 x weekly - 2 sets - 10 reps - Standing Shoulder External Rotation AAROM with Dowel - 1 x daily - 7 x weekly - 3 sets - 10 reps - Standing Isometric Shoulder Flexion with Doorway - Arm Bent - 1 x daily - 7 x weekly - 3 sets - 10 reps documented in this encounterSelect [facility] [place] History of Present illness Narrative* Pushpa Williamson PTA - 04/09/2024 8:37 AM EDT Program_ID:[id number] Access Code: [email or web address] URL: [email or web address] Date: 04-09-2024 Prepared By: John Ornelas Program Notes Exercises - Hooklying Single Knee to Chest - 1 x daily - 7 x weekly - 3 sets - 3 reps - Supine Double Knee to Chest - 1 x daily - 7 x weekly - 3 sets - 3 reps - Seated Shoulder Flexion AAROM with Joseph Behind - 1 x daily - 7 x weekly - 3 sets - 10 reps - Scaption with Dumbbells - 1 x daily - 7 x weekly - 3 sets - 10 reps - Sidelying Shoulder ER with Towel and Dumbbell - 1 x daily - 7 x weekly - 3 sets - 10 reps - Supine Piriformis Stretch with Foot on Ground - 1 x daily - 7 x weekly - 1 sets - 3 reps - Standing Shoulder Abduction AAROM with Dowel - 1 x daily - 7 x weekly - 2 sets - 10 reps * John Ornelas, PT - 04/09/2024 8:07 AM EDT Episode Visit Count: 2 Therapist That Will Accept/Oversee The Plan Of Care: John Ornelas Start of Care Date: 03/31/24 Onset Date: 06/23/23 Plan of Care Certification Date: 12/20/22 Next Certification Due Date: 01/24/23 Patient Identified by Name and Date of : Yes REHABILITATION AND SPORTS THERAPY PHYSICAL THERAPY TREATMENT NOTE ASSESSMENT: Andrea Piedra tolerated the session with fatigue and expected muscle soreness. He demonstrated difficulty with full can AROM on R shoulder. The patient will continue to benefit from ongoing skilled physical therapy to progress toward set goals. PLAN FOR NEXT VISIT: Neutral spine strengthening. Cotninue with AAROM with R shoulder for abduction and flexion. AROM for L shoulder. SUBJECTIVE: Pt reports that his shoulders are slightly better, R is still the worse. Some days are better than others. Pt reports that when he does his shoulder exercises, his shoulders seem to hurt more. Laying on his R shoulder he has a throbbing sensation and has difficulty sleeping. Pt reports that his back is doing better, really likes the stretches. His back is still a little tender. Pain: Pain Pain Level: 1 (increases to 6/10 with moving the R shoulder away from body. L shoulder, no increasewith moving shoulder) Pain Location: Shoulder - Right, Shoulder - Left Pain Level 2: 3 Pain Location 2: Low Back/Lumbar Spine - Right Description 2: Sore, Aching Frequency 2: Intermittent OBJECTIVE MEASURES WITH LEVEL OF FUNCTION: Pt challenged with R shoulder abduction TREATMENT: Therapeutic Exercise: 1: SKC 3x30 sec 2: DKC 3x30 sec 3: *Supine piriformis stretching 3x30 seconds 4: *Wand AAROM abduction 2x10 5: *full can, hold off on R shoulder for now, continue on L shoulder 6: Seated, repeated lumbar flexion x10 Skilled Intervention: Patient was educated in proper exercise technique and purpose for exercises. Reviewed and educated patient on additions/changes for home exercise program as above (*). Skilled judgment was used in selection of appropriate interventions. Provided written instruction for home exercise program to facilitate proper performance and compliance. Correct performance of therapeutic exercises was facilitated with verbal and visual cuing. Billing Therapeutic Exercise Treatment Minutes: 40 Skilled Treatment Time Minutes (timed and untimed codes): 40 Total Session Time (minutes): 40 Session Start Time : 803 Session Stop Time : 843 SHANNAN Richards PT documented in this encounterSelect [facility] [place] History of Present illness Narrative* John Ornelas PT - 03/31/2024 10:13 AM EDT Episode Visit Count: 1 Therapist That Will Accept/Oversee The Plan Of Care: John Ornelas Start of Care Date: 03/31/24 Onset Date: 06/23/23 Plan of Care Certification Date: 12/20/22 Next Certification Due Date: 01/24/23 Patient Identified by Name and Date of : Yes REHABILITATION AND SPORTS THERAPY PHYSICAL THERAPY EVALUATION PLAN OF CARE: Assessment: Andrea Piedra presents with chief complaint of R>L shoulder pain and LBP that interferes with rising from a chair, heavy exertion, lifting, physical activities, sleeping, reaching behind back, reaching overhead, use hand with arm at shoulder level . The patient presents with impairments in ADL's, overall function, range of motion, strength, symptom management, and tissue tenderness. Patient did not complete the PROMIS (Patient Reported Outcome Measures Information System). Prognosis for therapy is Good due to: current objective clinical presentation, good overall health status, acuteness of condition, positive past response to therapy, within-session changes, good support system/ coping skills . The patient will benefit from skilled therapy services to meet the goals established for this plan of care as noted below. Classification Pain Mechanism Classification: Nociceptive Low Back Pain Classification: Movement Control Goals for Episode of Care: established 03/31/24 Rush in home exercise program. Patient will decrease pain to 0/10 with functional activities and sleeping to allow patient to improve standing tolerance for ADLs and sleeping. Patient will increase active ROM of B shoulders and Lumbar spine to WNL to allow pt to to improve performance of ADLs. Patient will demonstrate increase in B shoulders and trunk/core strength to 4+/5 during manual muscle testing in order to improve function for basic self-care tasks, home management tasks, leisure / recreation skills, and prior functional tasks. Perform rising from a chair and reachingto and above shoulder height with decreased report of symptoms/pain in 4-6 weeks. Perform sleeping without pain. Time Frame for Goals and Treatment : 05/31/24 Planned Interventions, Frequency, and Duration: Current Frequency: 1x/week Duration: 8 weeks Total Number of Visits Planned: 8 Planned Treatment Interventions: Therapeutic exercise (82511), Therapeutic activities (31677), Neuromuscular re-education (88263), Manual therapy (41026), Self-longterm management (01307), Patient/Family/Caregiver Education, Body Mechanics Training PLAN FOR NEXT VISIT: Assess carry over of HEP, progress shoulder strengthening and neutral spine core strengthening if tolerated Patient demonstrates good understanding of plan of care and treatment. The above goals and plan of care were discussed and agreed upon by patient/family. SUBJECTIVE: R>L shoulder pain for most of the year with insidious onset. Pain mainly stays in the lateral shoulder with very ocassional radiation to mid brachium stopping short of the elbow. Sleeping on the right side seems to be the biggest factor. Patient is left handed. Better mobility and less pain L vsright. Once he gets moving he usually feels better, but lifting heavier weights or doing quick motio ns hurt as well. LBP for 3-4 days that gradually built up throughout the day. Patient does not remember a specific event. Patient notes the back hurts worse when he stands from sitting and it is hardto straighten out. Pain stays on the R side along the top of the hip, but does not radiate into thebuttocks, legs, or wrap into the side or groin. Functional Limitations: rising from a chair, heavy exertion, lifting, physical activities, sleeping, reaching behind back, reaching overhead, use hand with arm at shoulder level Intake Information: Prescription present Pain: Pain Pain Level: 6 Pain Location: Shoulder - Right, Shoulder - Left Description: Aching, Sore, Radiating Frequency: Intermittent Additional Pain Information : Location 2 Pain Level 2: 5 Pain Location 2: Low Back/Lumbar Spine - Right Description 2: Aching, Sore, Radiating Frequency 2: Intermittent Post Treatment Pain Post Treatment Pain Level: No Change Post Treatment Pain Location: Shoulder - Left, Shoulder - Right Post Treatment Pain Score 2: 0/10 Post Treatment Pain Location 2: Low Back/Lumbar Spine - Right PROMIS Scales T-scores: mean of general population = 50. 5 points is clinically meaningfully difference Percentiles provide an indication of how the patient's score ranks in relation to the general population. Higher percentile rankings indicate better function/quality of life. 50th percentile is the average of the general population and indicates half of respondents had a worse score. OBJECTIVE MEASURES WITH LEVEL OF FUNCTION: Shoulder Observations R Shoulder Palpation Tenderness: Supraspinatus, Infraspinatus L Shoulder Palpation Tenderness: Supraspinatus Lumbar Spine AROM Lumbar Flexion: Normal Lumbar Extension: Moderate limitation, Increased pain, Peripheralizing Lumbar R Side-Bend: End range pain Lumbar L Side-Bend: End range pain Lumbar R Rotation: Normal Lumbar L Rotation: Normal Repeated Test Movements - Lumbar HOMER - Symptoms During: increases HOMER - Symptoms After: peripheralized RFIL - Symptoms During: decreases RFIL - Symptoms After: abolished UE and Cervical Strength Strength Tested: Shoulder All R UE Strength: 4-/5 scaption L UE Strength: 4/5 scaption R Shoulder Flexion: 4+/5 R Shoulder Abduction (C5): 4+/5 R Shoulder Internal Rotation: 5/5 R Shoulder External Rotation: 3+/5 L Shoulder Flexion: 4+/5 L Shoulder Abduction (C5): 4+/5 L Shoulder Internal Rotation: 5/5 L Shoulder External Rotation: 4/5 LE Strength Trunk Strength: 3+/5 R LE Strength: 5/5 L LE Strength: 5/5 Special Tests - Shoulder Shoulder Special Tests: Empty Can, Sanford-Ryan, Neer, Andrews, Speed's Empty Can: Right Negative, Left Negative (right painful but good strength) Sanford-Ryan: Right Positive, Left Positive Neer: Right Positive, Left Positive Andrews: Left Negative, Right Negative Speed's: Left Negative, Right Negative Special Tests - Hip and Spine Hip and Spine Special Tests: SLR Test, Slump Test, Prone Instability Test, Extension with Rotation Test SLR Test: Left Negative, Right Negative Slump Test: Left Negative, Right Negative Prone Instability Test: Negative Extension with Rotation Test: Right Positive Education: Education Learning/educational needs: Home exercise program, Plan of Care, Changes in Plan of Care, Posture, Body Mechanics TREATMENT: PT Treatment Interventions: Therapeutic Exercise, Self-Skilled Nursing Management Evaluation Therapeutic Exercise: 1: *SKC 3x30 sec 2: *DKC 3x30 sec 3: *Full can 1# 3x10 4: *SL ER 1# 3x10 5: *Shoulder pulleys into flexion 3x20 Skilled Intervention: Patient was educated in proper exercise technique and purpose for exercises. Skilled judgment was used in selection of appropriate interventions. Provided written instruction for home exercise program to facilitate proper performance and compliance. Correct performance of therapeutic exercises was facilitated with verbal, visual, and tactile cuing. Self-Skilled Nursing Management: 1: Reviewed shoulder imaging and discussed rehab implications and discussed anatomical and kinesiological concepts that affect rehab 2: Reviewed lumbar imaging from 2013 and discussed with patients potential causes or implications for advancing processes and relating his symptoms to possible anatomical variances Skilled Intervention: Skilled judgment in the selection of proper modification for activity of daily living/home management based on clinical presentation, deficits, and needs. Reviewed patient specific diagnosis in relation to activities of daily living/home management. Activity progression based on professional judgement. Billing * Evaluation Low Complexity: 1 Unit Therapeutic Exercise Treatment Minutes: 15 Self-Care/Home Management Treatment Minutes: 12 Skilled Treatment Time Minutes (timed and untimed codes): 47 Total Session Time (minutes): 47 Session Start Time : 906 Session Stop Time : 953 John Ornelas PT * John Ornelas PT - 03/31/2024 9:39 AM EDT Program_ID:[id number] Access Code: [email or web address] URL: [email or web address] Date: 03-31-2024 Prepared By: John Ornelas Program Notes Exercises - Hooklying Single Knee to Chest - 1 x daily - 7 x weekly - 3 sets - 3 reps - Supine Double Knee to Chest - 1 x daily - 7 x weekly - 3 sets - 3 reps - Seated Shoulder Flexion AAROM with Joseph Behind - 1 x daily - 7 x weekly - 3 sets - 10 reps - Scaption with Dumbbells - 1 x daily - 7 x weekly - 3 sets - 10 reps - Sidelying Shoulder ER with Towel and Dumbbell - 1 x daily - 7 x weekly - 3 sets - 10 reps documented in [facility] encounter[facility] [place] Telephone encounter Note * Telephone Encounter - Mingo Perla LPN - 03/22/2024 1:37 PM EDT Prescription Refill Information The patient has been identified by name and date of : Yes Caregiver verified no other encounters exist for this prescription request: Yes Caregiver confirmed with patient/requestor that no other refills are due, in the near future, with this provider at this time: Yes The last office visit in the department: 03/08/24 Does the patient have a future office visit with this provider/department: Yes, 09/06/24 Requested Prescriptions Pending Prescriptions Disp Refills LORazepam (ATIVAN) 0.5 mg 90 tablet 1 Sig: Take 1 tablet by mouth three times a day as needed (anxiety) for up to 90 days. Mingo Perla LPN March 22, 2024 1:37 PM [facility] [place]-30-2024 Miscellaneous Notes* Telephone Encounter - Mingo Perla LPN - 03/22/2024 1:37 PM EDT Prescription Refill Information The patient has been identified by name and date of : Yes Caregiver verified no other encounters exist for this prescription request: Yes Caregiver confirmed with patient/requestor that no other refills are due, in the near future, with this provider at this time: Yes The last office visit in the department: 03/08/24 Does the patient have a future office visit with this provider/department: Yes, 09/06/24 Requested Prescriptions Pending Prescriptions Disp Refills LORazepam (ATIVAN) 0.5 mg 90 tablet 1 Sig: Take 1 tablet by mouth three times a day as needed (anxiety) for up to 90 days. Mingo Perla LPN March 22, 2024 1:37 PM documented in this encounterSelect [facility] [place] History of Present illness Narrative* Hallie Mcgrath RT(R) - 03/08/2024 11:00 AM EDT Radiology Service Progress Note PATIENT NAME: Andrea Piedra DATE OF SERVICE: March 08, 2024 TIME: 11:15 AM PATIENT IDENTITY VERIFICATION COMPLETED USING TWO (2) IDENTIFIERS: Name and Date of confirmedby patient verbally. FALL SCREENING: Has the patient had 2 falls in the last year or 1 fall with injury or currently using an Ambulatory Assistive Device (Walker, Cane, Wheelchair, Crutches, etc.)? No PATIENT GENDER DATA: Male PATIENT RELEVANT IMPLANT DATA REVIEWED: Yes PATIENT PRESENTS WITH AN IMPLANTABLE OR ATTACHED CASTING OPERATOR: No RADIOLOGY DEPARTMENT: General X-ray: Exam(s) Completed: Upper Extremity X- Ray(s): Shoulder, AP / TRUE AP / AXILLARY bilateral PERIPHERAL IV DATA: Not applicable SIGNED BY: RT Fco(Sophie) March 08, 2024 11:15 AM documented in this encounterSelect [facility] [place] History of Present illness Narrative* Alan Ward MD - 03/08/2024 10:01 AM EDT Patient presents with: 6 Month Exam HPI: Patient presents today for office visit for follow up. Follows with [facility]. No longer on xarelto. Continue on 81 mg asa. No recent A-fib episodes. Monitor revealed good heart rate variability. No atrial fibrillation. 1 episode of 6 beat run of supraventricular tachycardia. A few extra beats-these are normal. Supra ventricular tachycardia. Discussed he is using a smart watch and the limitations. Having issues with his shoulders. Right worse than left. Has gradually gotten worse over the last year. No neck pain. No trauma. No swelling No numbness or weakness. HTN: Does not monitor his BP at home. Denies chest pain and shortness of breath. Denies headaches and dizziness. Occ palpitations. No syncope. Denies edema. HLD: No myalgias. Discussed diet. He noted the shakiness from last time seems to be improved if he eats. Red flags for re-assessment reviewed with patient in detail. Retired. Less stress. Anxiety is doing well. Oarrs done. Uses lorazepam at hs prn. Discussed risks and benefits. Latest Ref Rng 03/04/2024 WBC 3.70 - 11.00 k/uL 7.56 RBC 4.20 - 6.00 m/uL 4.80 Hemoglobin 13.0 - 17.0 g/dL 14.0 Hematocrit 39.0 - 51.0 % 42.4 MCV 80.0 - 100.0 fL 88.3 MCH 26.0 - 34.0 pg 29.2 MCHC 30.5 - 36.0 g/dL 33.0 RDW-CV 11.5 - 15.0 % 13.7 Platelet Count 150 - 400 k/uL 327 MPV 9.0 - 12.7 fL 9.9 Neut% % 58.0 Abs Neut (ANC) 1.45 - 7.50 k/uL 4.39 Lymph% % 25.3 Abs Lymph 1.00 - 4.00 k/uL 1.91 [place]% % 12.4 Abs [place] <0.87 k/uL 0.94 (H) Eosin% % 2.8 Abs Eosin <0.46 k/uL 0.21 Baso% % 1.2 Abs Baso <0.11 k/uL 0.09 Immature Gran % % 0.3 IMMATURE GRANS (ABS) <0.10 k/uL <0.03 NRBC /100 WBC 0.0 Absolute nRBC <0.01 k/uL <0.01 DTYPE Auto Hemoglobin A1C 4.3 - 5.6 % 5.9 (H) Estimated Average Glucose mg/dL 123 MEDICATIONS: Current Outpatient Medications Medication Sig LORazepam (ATIVAN) 0.5 mg Take 1 tablet by mouth three times a day as needed (anxiety) for up to 90days. aspirin, enteric coated (ECOTRIN LOW STRENGTH) 81 mg EC tablet Take 81 mg by mouth once daily. benazepril (LOTENSIN) 20 mg tablet Take 1 tablet by mouth two times a day. dilTIAZem CD (CARDIZEM CD, CARTIA XT) 240 mg 24 hr capsule Take 1 capsule by mouth once daily. atorvastatin (LIPITOR) 20 mg tablet Take 1 tablet by mouth once daily. triamcinolone acetonide (NASACORT NASAL) Use in the nose. fexofenadine (SHANNAN) 180 mg tablet Take 180 mg by mouth once daily. calcium carbonate (TUMS ORAL) Take 2 tablets by mouth as needed. hydroCHLOROthiazide (HYDRODIURIL, ESIDRIX) 12.5 mg tablet Take 12.5 mg by mouth twice daily. melatonin 3 mg capsules Take 3 mg by mouth at bedtime as needed. potassium chloride (K-TAB) 10 mEq tablet Take 10 mEq by mouth once daily. metoprolol tartrate, short acting, (LOPRESSOR) 100 mg tablet Take 100 mg by mouth twice daily. No current facility-administered medications for this visit. ALLERGIES: ALLERGIES Allergen Reactions Vicodin [Hydrocodon* Mental Status Change PAST MEDICAL HISTORY Diagnosis Date Anticoagulant long-term use Arrhythmia At risk for stroke [id number] = 1 (HTN) Essential hypertension Essential hypertension Generalized anxiety disorder Hemorrhage of gastrointestinal tract, unspecified Hemorrhoids Paroxysmal atrial fibrillation (HCC) Rectal bleeding 09/2021 Sleep apnea does not use cpap. Snoring PAST SURGICAL HISTORY Procedure Laterality Date COLONOSCOPY FLX DX W/COLLJ SPEC WHEN PFRMD 07/11/2008 Colonoscopy COLONOSCOPY FLX DX W/COLLJ SPEC WHEN PFRMD 05/26/2018 Colonoscopy ESOPHAGOGASTRODUODENOSCOPY TRANSORAL DIAGNOSTIC 05/26/2018 EGD ESOPHAGOGASTRODUODENOSCOPY TRANSORAL DIAGNOSTIC 04/02/2022 EYE SURGERY HX HEMORRHOID: RUBBERBAND, SINGLE/MULTIPLE 10/04/2021 HEMORRHOID;BAND LIGAT, SNGL/MUL 04/02/2022 HEMORRHOIDECTOMY INTERNAL RUBBER BAND LIGATIONS 05/26/2018 PROCEDURE RM-COLONSCOPY W/BX 04/02/2022 FAMILY HISTORY Problem Relation Age of Onset Heart Mother Valve Replacement COPD Mother other (history of smoking) Mother Hypertension Father Kidney failure Father kidney disease - on dialysis Heart disease Father heart valve problem Hypertension Sister Hyperlipidemia Sister other (sudden infant ) Brother other (sudden infant ) Brother Thyroid Son Prostate Cancer No Family History none Social History Tobacco Use Smoking status: Never Smokeless tobacco: Never Vaping Use Vaping status: Never Used Substance Use Topics Alcohol use: Yes Comment: very occasional Drug use: No Reviewed current medications, allergies, past medical history, surgical history, family history andsocial history today. REVIEW OF SYSTEMS Occasionally tired but has a three year old grandson he is the guardian of. All other reviewed and negative other than HPI. HEALTH MAINTENANCE: Reviewed health maintenance issues today and recommended the following in detail. Depression Screening Never done Covid-19 Vaccine( - 2022- season) due on 02/22/2024 Influenza Vaccine(1) due on 02/22/2024 VITALS: BP 126/77 Pulse (!) 54 Ht 177.8 cm (5' 10") Wt 106.6 kg (235 lb 0.2 oz) BMI 33.72 kg/m Last 4 Encounter Wt Readings: Date: Wt: 01/14/2024 105.2 kg (232 lb) 11/30/2023 106.1 kg (233 lb 14.5 oz) 09/05/2023 106.1 kg (234 lb) 04/19/2023 105.7 kg (233 lb) PHYSICAL EXAMINATION: General appearance: Well appearing, alert, in no acute distress, well-hydrated, well nourished. Skin: Skin color, texture, turgor normal, no suspicious rashes or lesions Head: Normocephalic, no masses, lesions, tenderness or abnormalities Lungs: Lungs clear to auscultation. No wheezing, rhonchi, rales Heart: RRR without murmur, gallop, or rubs. No ectopy Abdomen: Normal abdominal exam, Abdomen soft, non-tender. Bowel sounds normal. No masses, organomegaly Extremities: No deformities, edema, skin discoloration, clubbing or cyanosis. Good capillary refill. Musculoskeletal: No joint swelling, deformity, or tenderness Shoulder: Location: bilaterally. Redness: No. Warmth: No. Tenderness to palpation: none Swelling: No. Range of motion: slight decrease. Empty can test: negative. ASSESSMENT/PLAN: 1. Essential hypertension - ICD9: 401.9, ICD10: I10 (primary diagnosis) - Controlled - Continue current medications - Recommend regular aerobic exercise 2. Mixed hyperlipidemia - ICD9: 272.2, ICD10: E78.2 - Controlled - Continue current medications - COMPLETE BLOOD COUNT AND DIFFERENTIAL - COMPREHENSIVE METABOLIC PANEL - LIPID PANEL BASIC 3. Paroxysmal atrial fibrillation (HCC) - ICD9: 427.31, ICD10: I48.0 - per cardiology. 4. Unspecified sleep apnea - ICD9: 780.57, ICD10: G47.30 - still using cpap. Benefiting from its use. Sees Dr Zapata at [facility] 5. Hyperglycemia - ICD9: 790.29, ICD10: R73.9 - small frequent meals. Avoid complex carbs - HEMOGLOBIN A1C 6. Benign non-nodular prostatic hyperplasia without lower urinary tract symptoms - ICD9: 600.90, ICD10: N40.0 - stable. 7. Obesity, Class I, BMI 30-34.9 - ICD9: 278.00, ICD10: E66.9 - watch diet. 8. Generalized Anxiety Disorder - ICD9: 300.02, ICD10: F41.1 - stable. Continue med.s 9. Tendinitis of shoulder, unspecified laterality - ICD9: 726.10, ICD10: M77.8 - follow as above. - XR SHOULDER GENERAL 3V OR MORE AP/TRUE AP/OTHER LEFT - XR SHOULDER GENERAL 3V OR MORE AP/TRUE AP/OTHER RIGHT - CONSULT TO PHYSICAL THERAPY Alan Ward MD documented in this encounterSelect [facility] [place] Telephone encounter Note * Telephone Encounter - Charla Coleman RN - 03/02/2024 8:11 AM EDT Patient calling with request for health information: patient requesting health information about Fasting for bloodwork, reviewed information from [facility] Medicine Test Directory ,and verbalized understanding of information provided Patient denies any new or worsening symptoms of which a provider is not aware: Yes. Information reviewed with patient. Patient verbalizes understanding. [facility] [place]-10-2024 Miscellaneous Notes* Telephone Encounter - Charla Coleman RN - 03/02/2024 8:11 AM EDT Patient calling with request for health information: patient requesting health information about Fasting for bloodwork, reviewed information from [facility] [place] [facility] Test Directory ,and verbalized understanding of information provided Patient denies any new or worsening symptoms of which a provider is not aware: Yes. Information reviewed with patient. Patient verbalizes understanding. documented in this encounterSelect [facility] [place]-23-2024 Telephone encounter Note * Telephone Encounter - Jolly Wells APRN.CNP - 02/13/2024 8:41 AM EDT Your monitor revealed good heart rate variability. No atrial fibrillation. 1 episode of 6 beat run of supraventricular tachycardia. A few extra beats-these are normal. Supra ventricular tachycardia is not life-threatening but can be uncomfortable. It does not require any blood thinners or medication unless you stay in this rhythm and have discomfort. It could certainly cause palpitations. Stress can exacerbate SVT. Alcohol, caffeine, and tobacco can be triggers. [facility] Work Phone: [phone]) 694-817008-23-2024 Miscellaneous Notes* Telephone Encounter - Jolly Wells APRN.CNP - 02/13/2024 8:41 AM EDT Your monitor revealed good heart rate variability. No atrial fibrillation. 1 episode of 6 beat run of supraventricular tachycardia. A few extra beats-these are normal. Supra ventricular tachycardia is not life-threatening but can be uncomfortable. It does not require any blood thinners or medication unless you stay in this rhythm and have discomfort. It could certainly cause palpitations. Stress can exacerbate SVT. Alcohol, caffeine, and tobacco can be triggers. documented in this encounterSelect [facility] [place]-24-2024 History of Present illness Narrative* Alan Ward MD - 01/14/2024 9:16 AM EDT Patient presents with: Acute Visit HPI: Patient presents today for office visit for acute concern. Patient complains of: Shakiness and feeling jittery. Refers to feeling like he's drank too much caffeine but hasn't. Duration: X 1+ month. Location: Shakiness is mainly in hands. Aggravating factors: Anxiety Things that improve symptoms: Had an episode yesterday of feeling jittery and decided to try eatinga banana and a piece of caramel candy which helped. Denies chest pain and shortness of breath Did have an episode of heartburn but felt his heart rate go up. 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 Seen in ER and diagnosed with reflux. Has been better since on meds. Placed on omeprazole. No bloody or black stools. No polyuria or polydipsia. ER did labs including cbc, bmp, troponin, EKG etc. Still gets rare palpitations. No weight loss or sweating. Does have anxiety whenever he has a medical issue so he wonders if that can be setting. Is worrying about the fact he is going on to vacation and is worried about having issues while he is gone. Has not tried his ativan for it. No falls. No headaches. No vision or speech changes. No focal numbness or weakness. No new joint stiffness. Feels like he has had too much caffeine and that has not changed. He wants to make sure nothing else is going on that could cause it. If issues continues, he would be willing to think about meds. Latest Ref Rng 09/03/2023 WBC 3.70 - 11.00 k/uL 6.99 RBC 4.20 - 6.00 m/uL 4.87 Hemoglobin 13.0 - 17.0 g/dL 13.8 Hematocrit 39.0 - 51.0 % 43.2 MCV 80.0 - 100.0 fL 88.7 MCH 26.0 - 34.0 pg 28.3 MCHC 30.5 - 36.0 g/dL 31.9 RDW-CV 11.5 - 15.0 % 13.3 Platelet Count 150 - 400 k/uL 334 MPV 9.0 - 12.7 fL 10.1 Neut% % 57.1 Abs Neut (ANC) 1.45 - 7.50 k/uL 3.99 Lymph% % 26.5 Abs Lymph 1.00 - 4.00 k/uL 1.85 [place]% % 12.3 Abs [place] <0.87 k/uL 0.86 Eosin% % 3.1 Abs Eosin <0.46 k/uL 0.22 Baso% % 0.9 Abs Baso <0.11 k/uL 0.06 Immature Gran % % 0.1 IMMATURE GRANS (ABS) <0.10 k/uL <0.03 NRBC /100 WBC 0.0 Absolute nRBC <0.01 k/uL <0.01 DTYPE Auto Protein, Total 6.3 - 8.0 g/dL 7.3 Albumin 3.9 - 4.9 g/dL 4.4 Calcium 8.5 - 10.2 mg/dL 9.7 Bilirubin, Total 0.2 - 1.3 mg/dL 0.3 Alkaline Phosphatase 38 - 113 U/L 84 AST 14 - 40 U/L 28 ALT 10 - 54 U/L 41 Glucose 74 - 99 mg/dL 100 (H) BUN 9 - 24 mg/dL 18 Creatinine 0.73 - 1.22 mg/dL 0.81 Sodium 136 - 144 mmol/L 138 Potassium 3.7 - 5.1 mmol/L 4.3 Chloride 97 - 105 mmol/L 103 CO2 22 - 30 mmol/L 25 Anion Gap 9 - 18 mmol/L 10 eGFR >=60 mL/min/1.73m 100 Cholesterol, Total <200 mg/dL 175 Triglyceride <150 mg/dL 207 (H) HDL Cholesterol >39 mg/dL 41 Non HDL Cholesterol <130 mg/dL 134 (H) Fasting Time hrs 10 VLDL Cholesterol <30 mg/dL 41 (H) TC:HDL Ratio <5.10 4.27 LDL Cholesterol <100 mg/dL 93 LDL:HDL Ratio <2.54 2.27 Hemoglobin A1C 4.3 - 5.6 % 5.9 (H) Estimated Average Glucose mg/dL 123 Legend: (H) High MEDICATIONS: Current Outpatient Medications Medication Sig LORazepam (ATIVAN) 0.5 mg Take 1 tablet by mouth three times a day as needed (anxiety) for up to 90days. aspirin, enteric coated (ECOTRIN LOW STRENGTH) 81 mg EC tablet Take 81 mg by mouth once daily. benazepril (LOTENSIN) 20 mg tablet Take 1 tablet by mouth two times a day. dilTIAZem CD (CARDIZEM CD, CARTIA XT) 240 mg 24 hr capsule Take 1 capsule by mouth once daily. atorvastatin (LIPITOR) 20 mg tablet Take 1 tablet by mouth once daily. triamcinolone acetonide (NASACORT NASAL) Use in the nose. fexofenadine (SHANNAN) 180 mg tablet Take 180 mg by mouth once daily. calcium carbonate (TUMS ORAL) Take 2 tablets by mouth as needed. hydroCHLOROthiazide (HYDRODIURIL, ESIDRIX) 12.5 mg tablet Take 12.5 mg by mouth twice daily. melatonin 3 mg capsules Take 3 mg by mouth at bedtime as needed. potassium chloride (K-TAB) 10 mEq tablet Take 10 mEq by mouth once daily. metoprolol tartrate, short acting, (LOPRESSOR) 100 mg tablet Take 100 mg by mouth twice daily. No current facility-administered medications for this visit. ALLERGIES: ALLERGIES Allergen Reactions Vicodin [Hydrocodon* Mental Status Change PAST MEDICAL HISTORY Diagnosis Date Anticoagulant long-term use Arrhythmia At risk for stroke [id number] = 1 (HTN) Essential hypertension Essential hypertension Generalized anxiety disorder Hemorrhage of gastrointestinal tract, unspecified Hemorrhoids Paroxysmal atrial fibrillation (HCC) Rectal bleeding 09/2021 Sleep apnea does not use cpap. Snoring PAST SURGICAL HISTORY Procedure Laterality Date COLONOSCOPY FLX DX W/COLLJ SPEC WHEN PFRMD 07/11/2008 Colonoscopy COLONOSCOPY FLX DX W/COLLJ SPEC WHEN PFRMD 05/26/2018 Colonoscopy ESOPHAGOGASTRODUODENOSCOPY TRANSORAL DIAGNOSTIC 05/26/2018 EGD ESOPHAGOGASTRODUODENOSCOPY TRANSORAL DIAGNOSTIC 04/02/2022 EYE SURGERY HX HEMORRHOID: RUBBERBAND, SINGLE/MULTIPLE 10/04/2021 HEMORRHOID;BAND LIGAT, SNGL/MUL 04/02/2022 HEMORRHOIDECTOMY INTERNAL RUBBER BAND LIGATIONS 05/26/2018 PROCEDURE RM-COLONSCOPY W/BX 04/02/2022 FAMILY HISTORY Problem Relation Age of Onset Heart Mother Valve Replacement COPD Mother other (history of smoking) Mother Hypertension Father Kidney failure Father kidney disease - on dialysis Heart disease Father heart valve problem Hypertension Sister Hyperlipidemia Sister other (sudden infant ) Brother other (sudden infant ) Brother Thyroid Son Prostate Cancer No Family History none Social History Tobacco Use Smoking status: Never Smokeless tobacco: Never Vaping Use Vaping Use: Never used Substance Use Topics Alcohol use: Yes Comment: very occasional Drug use: No Reviewed current medications, allergies, past medical history, surgical history, family history andsocial history today. REVIEW OF SYSTEMS All other reviewed and negative other than HPI. HEALTH MAINTENANCE: Reviewed health maintenance issues today and recommended the following in detail. Depression Screening Never done Shingrix Vaccine(1 of 2) Never done DTaP,Tdap,Td Vaccine(2 - Td or Tdap) due on 12/02/2018 VITALS: BP 126/74 Pulse (!) 59 Ht 177.8 cm (5' 10") Wt 105.2 kg (232 lb) SpO2 97% BMI 33.29 kg/m Last 4 Encounter Wt Readings: Date: Wt: 11/30/2023 106.1 kg (233 lb 14.5 oz) 09/05/2023 106.1 kg (234 lb) 04/19/2023 105.7 kg (233 lb) 03/04/2023 103.9 kg (229 lb) PHYSICAL EXAMINATION: General appearance: Well appearing, alert, in no acute distress, well-hydrated, well nourished. Skin: Skin color, texture, turgor normal, no suspicious rashes or lesions Head: Normocephalic, no masses, lesions, tenderness or abnormalities Neck: Supple, no adenopathy Lungs: Lungs clear to auscultation. No wheezing, rhonchi, rales Heart: RRR without murmur, gallop, or rubs. No ectopy Abdomen: Normal abdominal exam, Abdomen soft, non-tender. Bowel sounds normal. No masses, organomegaly Extremities: No deformities, edema, skin discoloration, clubbing or cyanosis. Good capillary refill. Neuro: no significant tremor or cogwheeling. ASSESSMENT/PLAN: 1. Essential hypertension - ICD9: 401.9, ICD10: I10 (primary diagnosis) - Controlled - Continue current medications 2. Mixed hyperlipidemia - ICD9: 272.2, ICD10: E78.2 - Controlled - Continue current medications - Counseled on healthy diet and regular exercise 3. Paroxysmal atrial fibrillation (HCC) - ICD9: 427.31, ICD10: I48.0 - do zio to rule out undetected a fib vs svt. Has hx of a fib. 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 - OUTSIDE VENDOR CARDIAC OUTPATIENT EXTENDED RHYTHM RECORDING (WITHOUT TELEMETRY) 4. Unspecified sleep apnea - ICD9: 780.57, ICD10: G47.30 -using cpap. Benefits from its use. 5. Hyperglycemia - ICD9: 790.29, ICD10: R73.9 - recheck A1c. 6. Generalized Anxiety Disorder - ICD9: 300.02, ICD10: F41.1 - wants to hold to add meds. 7. Anticoagulant long-term use - ICD9: V58.61, ICD10: Z79.01 - now off of xarelto and on baby asa per cardiology. 8. Obesity, Class I, BMI 30-34.9 - ICD9: 278.00, ICD10: E66.9 - stable. 9. Shakiness - ICD9: 781.0, ICD10: R25.1 - check labs. Consider treatment with meds if continues. - THYROID STIMULATING HORMONE - T4/FTI/T4U - T3 Alan Ward MD documented in this encounterSelect [facility] [place] Telephone encounter Note * Telephone Encounter - Maribell Robertson LPN - 12/24/2023 7:53 AM EDT Prescription Refill Information The patient has been identified by name and date of : Yes Caregiver verified no other encounters exist for this prescription request: Yes Caregiver confirmed with patient/requestor that no other refills are due, in the near future, with this provider at this time: Yes The last office visit in the department: 09/05/23 Does the patient have a future office visit with this provider/department: Yes 03/08/24 Requested Prescriptions Pending Prescriptions Disp Refills LORazepam (ATIVAN) 0.5 mg 90 tablet 1 Sig: Take 1 tablet by mouth three times a day as needed (anxiety) for up to 90 days. Maribell Robertson LPN December 24, 2023 7:54 AM [facility] [place]07-03-2024 Miscellaneous Notes* Telephone Encounter - Maribell Robertson LPN - 12/24/2023 7:53 AM EDT Prescription Refill Information The patient has been identified by name and date of : Yes Caregiver verified no other encounters exist for this prescription request: Yes Caregiver confirmed with patient/requestor that no other refills are due, in the near future, with this provider at this time: Yes The last office visit in the department: 09/05/23 Does the patient have a future office visit with this provider/department: Yes 03/08/24 Requested Prescriptions Pending Prescriptions Disp Refills LORazepam (ATIVAN) 0.5 mg 90 tablet 1 Sig: Take 1 tablet by mouth three times a day as needed (anxiety) for up to 90 days. Maribell Robertson LPN December 24, 2023 7:54 AM documented in this encounter[facility] [place] History of Present illness Narrative* Julián Russo APRN.[employer]ER/FI[employer]MAN - 11/30/2023 10:05 AM EDT Subjective HPI Nontoxic-appearing male presents to urgent care with chief complaint of upper respiratory tract like infection. Duration of symptoms 3 days. Associated symptoms sore throat, nasal congestion, nasal discharge and nonproductive cough. OTC medication with some success. No known sick contacts. Patient denies any productive cough, fever, chest pain, shortness of breath, pleuritic pain, rash, abdominalpain, nausea, vomiting or change in bowel or bladder habit. Past medical history prescription medications allergies reviewed. .Patient presents with: Nasal Congestion: chest congestion, cough, nasal drainage into throat x 3 days PAST MEDICAL HISTORY Diagnosis Date Anticoagulant long-term use Arrhythmia At risk for stroke [id number] = 1 (HTN) Essential hypertension Essential hypertension Generalized anxiety disorder Hemorrhage of gastrointestinal tract, unspecified Hemorrhoids Paroxysmal atrial fibrillation (HCC) Rectal bleeding 09/2021 Sleep apnea does not use cpap. Snoring PAST SURGICAL HISTORY Procedure Laterality Date COLONOSCOPY FLX DX W/COLLJ SPEC WHEN PFRMD 07/11/2008 Colonoscopy COLONOSCOPY FLX DX W/COLLJ SPEC WHEN PFRMD 05/26/2018 Colonoscopy ESOPHAGOGASTRODUODENOSCOPY TRANSORAL DIAGNOSTIC 05/26/2018 EGD ESOPHAGOGASTRODUODENOSCOPY TRANSORAL DIAGNOSTIC 04/02/2022 EYE SURGERY HX HEMORRHOID: RUBBERBAND, SINGLE/MULTIPLE 10/04/2021 HEMORRHOID;BAND LIGAT, SNGL/MUL 04/02/2022 HEMORRHOIDECTOMY INTERNAL RUBBER BAND LIGATIONS 05/26/2018 PROCEDURE RM-COLONSCOPY W/BX 04/02/2022 ALLERGIES Vicodin [Hydrocodone-Acetaminophen] MEDICATIONS LORazepam (ATIVAN) 0.5 mg Take 1 tablet by mouth three times a day as needed (anxiety) for up to 90days. benazepril (LOTENSIN) 20 mg tablet Take 1 tablet by mouth two times a day. dilTIAZem CD (CARDIZEM CD, CARTIA XT) 240 mg 24 hr capsule Take 1 capsule by mouth once daily. atorvastatin (LIPITOR) 20 mg tablet Take 1 tablet by mouth once daily. triamcinolone acetonide (NASACORT NASAL) Use in the nose. fexofenadine (SHANNAN) 180 mg tablet Take 180 mg by mouth once daily. calcium carbonate (TUMS ORAL) Take 2 tablets by mouth as needed. hydroCHLOROthiazide (HYDRODIURIL, ESIDRIX) 12.5 mg tablet Take 12.5 mg by mouth twice daily. melatonin 3 mg capsules Take 3 mg by mouth at bedtime as needed. potassium chloride (K-TAB) 10 mEq tablet Take 10 mEq by mouth once daily. metoprolol tartrate, short acting, (LOPRESSOR) 100 mg tablet Take 100 mg by mouth twice daily. aspirin, enteric coated (ECOTRIN LOW STRENGTH) 81 mg EC tablet Take 81 mg by mouth once daily. montelukast (SINGULAIR) 10 mg tablet Take 1 tablet by mouth daily at bedtime. (Patient not taking: Reported on 11/30/2023) XARELTO 20 mg tablet Take 1 tablet by mouth once daily. (Patient not taking: Reported on 11/30/2023) FAMILY HISTORY Problem Relation Age of Onset Heart Mother Valve Replacement COPD Mother other (history of smoking) Mother Hypertension Father Kidney failure Father kidney disease - on dialysis Heart disease Father heart valve problem Hypertension Sister Hyperlipidemia Sister other (sudden infant ) Brother other (sudden infant ) Brother Thyroid Son Prostate Cancer No Family History none Social History Tobacco Use Smoking status: Never Smokeless tobacco: Never Vaping Use Vaping Use: Never used Substance Use Topics Alcohol use: Yes Comment: very occasional Drug use: No BP 100/76 Pulse 60 Temp 36.1 C (96.9 F) Resp 16 Wt 106.1 kg (233 lb 14.5 oz) SpO2 100% BMI 33.56 kg/m Review of Systems Constitutional: Positive for malaise/fatigue. Negative for chills and fever. HENT: Positive for congestion, sinus pain and sore throat. Negative for ear discharge and ear pain. Eyes: Negative for blurred vision, pain, discharge and redness. Respiratory: Positive for cough. Negative for hemoptysis, sputum production, shortness of breath, wheezing and stridor. Cardiovascular: Negative for chest pain. Gastrointestinal: Negative for abdominal pain, diarrhea, nausea and vomiting. Musculoskeletal: Positive for myalgias. Skin: Negative for itching and rash. Neurological: Negative for dizziness and headaches. Objective Physical Exam Constitutional: General: He is not in acute distress. Appearance: He is not diaphoretic. HENT: Head: Normocephalic. Jaw: No trismus, tenderness, swelling or pain on movement. Right Ear: Tympanic membrane, ear canal and external ear normal. Left Ear: Tympanic membrane, ear canal and external ear normal. Nose: Rhinorrhea present. Mouth/Throat: Mouth: Mucous membranes are moist. Pharynx: Oropharynx is clear. Uvula midline. No pharyngeal swelling, oropharyngeal exudate, posterior oropharyngeal erythema or uvula swelling. Eyes: Conjunctiva/sclera: Conjunctivae normal. Pupils: Pupils are equal, round, and reactive to light. Cardiovascular: Rate and Rhythm: Normal rate and regular rhythm. Heart sounds: Normal heart sounds. Pulmonary: Effort: Pulmonary effort is normal. No tachypnea, accessory muscle usage or respiratory distress. Breath sounds: Normal breath sounds. No stridor. No wheezing, rhonchi or rales. Abdominal: General: There is no distension. Palpations: Abdomen is soft. Tenderness: There is no abdominal tenderness. There is no guarding or rebound. Musculoskeletal: Cervical back: Normal range of motion and neck supple. No edema, erythema, rigidity or tenderness. No pain with movement. Normal range of motion. Lymphadenopathy: Cervical: No cervical adenopathy. Skin: General: Skin is warm and dry. Neurological: Mental Status: He is alert and oriented to person, place, and time. ASSESSMENT/PLAN: 1. Viral illness - ICD9: 079.99, ICD10: B34.9 - Discussed viral etiology and rationale for treatment. - Symptomatic treatment with prn analgesia - Supportive care with fluids and rest Patient was educated on supportive therapies. Patient will follow up with primary care provider as needed. Patient was instructed to immediately proceed to emergency room for any new, worsening, or symptoms lasting longer than anticipated. The patient's clinical presentation is otherwise unremarkable at this time. Based on exam and clinical finding, the patient is stable for discharge. Plan of care was discussed with patient. Patient verbalizes understanding and agrees to plan of care. This note was generated using [employer] software. It may contain errors in wording, punctuation, or spelling. Julián Russo APRN.[employer] LOCOMOTIVE FIRER/FIREMAN documented in this encounterSelect [facility] [place]03-15-2024 History of Present illness Narrative* Alan Ward MD - 09/05/2023 8:00 AM EDT Patient presents with: Physical HPI: Patient presents today for office visit for 6 month follow up. Mentions allergies are bad. Switches between Shannan and Claritin about every 6 months. Uses Nasacort every morning. Medications helping some but not much. During the day seems to be ok but at night refers to feeling like he's getting a cold. Refers to scratchy throat, sneezing and watery eyes. HTN: Current medications: Benazepril 20 mg BID HCTZ 12.5 mg BID Takes medications consistently. No side effects. Does not monitor BP Denies chest pain and shortness of breath. Denies headaches or dizziness. Intermittent palpitations. No recent episodes. Denies syncope. Denies edema. Follows with [facility]. Last seen in April. No recent episodes of A-fib. Continues on Metoprolol and Diltiazem for rate control. Continues on Xarelto for CVA protection. No bleeding or bruising issues. HLD: Current medications: Atorvastatin 20 mg daily No myalgias PSYCH: Current medications: Lorazepam 0.5 mg TID prn Doing well. Has retired and is enjoying it. Oarrs done. HYPERGLYCEMIA: A1c remains stable at 5.9 Latest Ref Rng 09/03/2023 WBC 3.70 - 11.00 k/uL 6.99 RBC 4.20 - 6.00 m/uL 4.87 Hemoglobin 13.0 - 17.0 g/dL 13.8 Hematocrit 39.0 - 51.0 % 43.2 MCV 80.0 - 100.0 fL 88.7 MCH 26.0 - 34.0 pg 28.3 MCHC 30.5 - 36.0 g/dL 31.9 RDW-CV 11.5 - 15.0 % 13.3 Platelet Count 150 - 400 k/uL 334 MPV 9.0 - 12.7 fL 10.1 Neut% % 57.1 Abs Neut (ANC) 1.45 - 7.50 k/uL 3.99 Lymph% % 26.5 Abs Lymph 1.00 - 4.00 k/uL 1.85 [place]% % 12.3 Abs [place] <0.87 k/uL 0.86 Eosin% % 3.1 Abs Eosin <0.46 k/uL 0.22 Baso% % 0.9 Abs Baso <0.11 k/uL 0.06 Immature Gran % % 0.1 IMMATURE GRANS (ABS) <0.10 k/uL <0.03 NRBC /100 WBC 0.0 Absolute nRBC <0.01 k/uL <0.01 DTYPE Auto Protein, Total 6.3 - 8.0 g/dL 7.3 Albumin 3.9 - 4.9 g/dL 4.4 Calcium 8.5 - 10.2 mg/dL 9.7 Bilirubin, Total 0.2 - 1.3 mg/dL 0.3 Alkaline Phosphatase 38 - 113 U/L 84 AST 14 - 40 U/L 28 ALT 10 - 54 U/L 41 Glucose 74 - 99 mg/dL 100 (H) BUN 9 - 24 mg/dL 18 Creatinine 0.73 - 1.22 mg/dL 0.81 Sodium 136 - 144 mmol/L 138 Potassium 3.7 - 5.1 mmol/L 4.3 Chloride 97 - 105 mmol/L 103 CO2 22 - 30 mmol/L 25 Anion Gap 9 - 18 mmol/L 10 eGFR >=60 mL/min/1.73m 100 Cholesterol, Total <200 mg/dL 175 Triglyceride <150 mg/dL 207 (H) HDL Cholesterol >39 mg/dL 41 Non HDL Cholesterol <130 mg/dL 134 (H) Fasting Time hrs 10 VLDL Cholesterol <30 mg/dL 41 (H) TC:HDL Ratio <5.10 4.27 LDL Cholesterol <100 mg/dL 93 LDL:HDL Ratio <2.54 2.27 Hemoglobin A1C 4.3 - 5.6 % 5.9 (H) Estimated Average Glucose mg/dL 123 MEDICATIONS: Current Outpatient Medications Medication Sig benazepril (LOTENSIN) 20 mg tablet Take 1 tablet by mouth two times a day. LORazepam (ATIVAN) 0.5 mg Take 1 tablet by mouth three times a day as needed (anxiety) for up to 90days. dilTIAZem CD (CARDIZEM CD, CARTIA XT) 240 mg 24 hr capsule Take 1 capsule by mouth once daily. atorvastatin (LIPITOR) 20 mg tablet Take 1 tablet by mouth once daily. triamcinolone acetonide (NASACORT NASAL) Use in the nose. fexofenadine (SHANNAN) 180 mg tablet Take 180 mg by mouth once daily. calcium carbonate (TUMS ORAL) Take 2 tablets by mouth as needed. hydroCHLOROthiazide (HYDRODIURIL, ESIDRIX) 12.5 mg tablet Take 12.5 mg by mouth twice daily. XARELTO 20 mg tablet Take 1 tablet by mouth once daily. melatonin 3 mg capsules Take 3 mg by mouth at bedtime as needed. potassium chloride (K-TAB) 10 mEq tablet Take 10 mEq by mouth once daily. metoprolol tartrate, short acting, (LOPRESSOR) 100 mg tablet Take 100 mg by mouth twice daily. No current facility-administered medications for this visit. ALLERGIES: ALLERGIES Allergen Reactions Vicodin [Hydrocodon* Mental Status Change PAST MEDICAL HISTORY Diagnosis Date Anticoagulant long-term use Arrhythmia At risk for stroke [id number] = 1 (HTN) Essential hypertension Essential hypertension Generalized anxiety disorder Hemorrhage of gastrointestinal tract, unspecified Hemorrhoids Paroxysmal atrial fibrillation (HCC) Rectal bleeding 09/2021 Sleep apnea does not use cpap. Snoring PAST SURGICAL HISTORY Procedure Laterality Date COLONOSCOPY FLX DX W/COLLJ SPEC WHEN PFRMD 07/11/2008 Colonoscopy COLONOSCOPY FLX DX W/COLLJ SPEC WHEN PFRMD 05/26/2018 Colonoscopy ESOPHAGOGASTRODUODENOSCOPY TRANSORAL DIAGNOSTIC 05/26/2018 EGD ESOPHAGOGASTRODUODENOSCOPY TRANSORAL DIAGNOSTIC 04/02/2022 EYE SURGERY HX HEMORRHOID: RUBBERBAND, SINGLE/MULTIPLE 10/04/2021 HEMORRHOID;BAND LIGAT, SNGL/MUL 04/02/2022 HEMORRHOIDECTOMY INTERNAL RUBBER BAND LIGATIONS 05/26/2018 PROCEDURE RM-COLONSCOPY W/BX 04/02/2022 FAMILY HISTORY Problem Relation Age of Onset Heart Mother Valve Replacement COPD Mother other (history of smoking) Mother Hypertension Father Kidney failure Father kidney disease - on dialysis Heart disease Father heart valve problem Hypertension Sister Hyperlipidemia Sister other (sudden ) Brother other (sudden ) Brother Thyroid Son Prostate Cancer No Family History none Social History Tobacco Use Smoking status: Never Smokeless tobacco: Never Vaping Use Vaping Use: Never used Substance Use Topics Alcohol use: Yes Comment: very occasional Drug use: No Reviewed current medications, allergies, past medical history, surgical history, family history andsocial history today. REVIEW OF SYSTEMS GENERAL: No weight loss, malaise or fevers RESPIRATORY: Negative for cough, hemoptysis, wheezing, COPD, dyspnea or shortness of breath GI: No nausea, vomiting, or diarrhea : No history of dysuria, frequency or incontinence SKIN: Negative for lesions, rash, and itching PSYCH: Negative for sleep disturbance, mood disorder and recent psychosocial stressors All other reviewed and negative other than HPI. HEALTH MAINTENANCE: Reviewed health maintenance issues today and recommended the following in detail. HIV Screening Never done BP Controlled (<130/80) Never done RSV Vaccine(1 - 1-dose 60+ series) Never done Covid-19 Vaccine(2022- season) due on 02/21/2023 Depression Assessment due on 06/23/2023 VITALS: BP 120/80 Pulse (!) 56 Ht 177.8 cm (5' 10") Wt 106.1 kg (234 lb) SpO2 97% BMI 33.58 kg/m Last 4 Encounter Wt Readings: Date: Wt: 04/19/2023 105.7 kg (233 lb) 03/04/2023 103.9 kg (229 lb) 02/20/2023 103.8 kg (228 lb 12.8 oz) 11/25/2022 105.7 kg (233 lb) PHYSICAL EXAMINATION: General appearance: Well appearing, alert, in no acute distress, well-hydrated, well nourished. Skin: Skin color, texture, turgor normal, no suspicious rashes or lesions Head: Normocephalic, no masses, lesions, tenderness or abnormalities Eyes: Anicteric sclera. Pupils are equally round and reactive to light. Extraocular movements are intact. Ears: External ears normal, canals clear Nose/Sinuses: Nares normal, septum midline, mucosa normal, no drainage or sinus tenderness Oropharynx: Lips, mucosa, and tongue normal, teeth and gums normal, oropharynx normal Neck: Supple, no adenopathy; thyroid symmetric, normal size, no bruits Back: Normal exam Lungs: Lungs clear to auscultation. No wheezing, rhonchi, rales Heart: RRR without murmur, gallop, or rubs. No ectopy Abdomen: Normal abdominal exam, Abdomen soft, non-tender. Bowel sounds normal. No masses, organomegaly Extremities: No deformities, edema, skin discoloration, clubbing or cyanosis. Good capillary refill. Musculoskeletal: No joint swelling, deformity, or tenderness Peripheral pulses: Normal Neuro: Gait normal. Reflexes normal and symmetric. Sensation grossly intact. ASSESSMENT/PLAN: 1. Well adult exam - ICD9: V70.0, ICD10: Z00.00 (primary diagnosis) - Counseled on healthy diet and regular exercise 2. Generalized anxiety disorder - ICD9: 300.02, ICD10: F41.1 - continue meds. - LORAZEPAM 0.5 MG TABLET 3. Essential hypertension - ICD9: 401.9, ICD10: I10 - Controlled - Continue current medications - Recommend regular aerobic exercise 4. Mixed hyperlipidemia - ICD9: 272.2, ICD10: E78.2 - Controlled - Continue current medications - Counseled on healthy diet and regular exercise 5. Paroxysmal atrial fibrillation (HCC) - ICD9: 427.31, ICD10: I48.0 - CBC + DIFF 6. Unspecified sleep apnea - ICD9: 780.57, ICD10: G47.30 - stable. 7. Hyperglycemia - ICD9: 790.29, ICD10: R73.9 - HGB A1C 8. Benign paroxysmal positional vertigo, unspecified laterality - ICD9: 386.11, ICD10: H81.10 9. Obesity, Class I, BMI 30-34.9 - ICD9: 278.00, ICD10: E66.9 - stable. 10. Allergy, subsequent encounter - ICD9: V58.89, ICD10: T78.40XD - Discussed risks and benefits of new medication with the patient. Advised them to call if any sideeffects or questions. - Call if symptoms worsen at all or if not better in one to two weeks - MONTELUKAST 10 MG TABLET Alan Ward MD documented in this encounterSelect [facility] [place]11-06-2023 Miscellaneous Notes* Telephone Encounter - Mingo Perla - 04/28/2023 1:36 PM EST Patient phones requesting refills as follows: Requested Prescriptions Pending Prescriptions Disp Refills LORazepam (ATIVAN) 0.5 mg 90 tablet 0 Sig: Take 1 tablet by mouth three times a day as needed (anxiety) for up to 90 days. VALDEMAR 04/19/23 NOV 09/05/23 Please review and advise. Mingo Perla documented in this encounterSelect [facility] [place]10-30-2023 Miscellaneous Notes* Telephone Encounter - Mrecy Borrero MA - 04/21/2023 8:53 AM EDT Patient has been identified by name and date of : Yes Requested Prescriptions Pending Prescriptions Disp Refills dilTIAZem CD (CARDIZEM CD, CARTIA XT) 240 mg 24 hr capsule 90 capsule 1 Sig: Take 1 capsule by mouth once daily. RX INSTRUCTIONS: Patient aware RX will be sent to pharmacy. No need to notify patient. Patient last office visit: 04/19/23 Patient next office visit: 09/05/23 Mercy Borrero MA documented in this encounterSelect [facility] [place]10-28-2023 History of Present illness Narrative* Alan Ward MD - 04/19/2023 8:05 AM EDT Patient presents with: Acute Visit: Left groin strain HPI: Patient presents today for office visit for left groin pain. Has been noting left groin pain. Started last weekend. Was having pain with movement and feels some pulling. That part is much better now. Still has some "inflammation" in the lower abd. Saw both urology and surgery after. Does have a small left inguinal hernia as well. Had colonoscopy and elected to follow. Feels like it is on the surface. Similar to what he had last year. No current urinary issues. No dysuria, hematuria. No bowel changes. Appetite is ok. No fever. No current swelling or pain near the testicle. No back or radicular pain. See previous ov from last year when he had similar symptoms.: Was scheduled for ct exam here for work up of chronic abd discomfort but was sent to ER at [facility] for an acute illness that started three days before. Had ct in the er that questionably showed a mildly dilated left ureter. ?? Recently passed stone. No definite dysuria, hematuria. Had recently had uri symptoms. Had chills Then got diarrhea and three day hx of abd cramping. and had dark urine. Was different from his normal chronic abd discomfort. The Er did not mention to him that his liver enzymes were elevated. ALT of 143, AST of 94 and alk phos of 177. covid was negative in ER. Urine was negative as well. Currently diarrhea is better. No fever. mild cough. Has mild congestion in the nose No more cramping in the stomach. No yellowing to the skin. No more dark urine. Did have a sore throat around father's day but no swollen glands or current issues, No mono exposure. Also has a small left inguinal hernia that is asymptomatic. Component Latest Ref Rng & Units 03/28/2023 WBC 3.70 - 11.00 k/uL 6.57 RBC 4.20 - 6.00 m/uL 4.83 Hemoglobin 13.0 - 17.0 g/dL 13.8 Hematocrit 39.0 - 51.0 % 42.9 MCV 80.0 - 100.0 fL 88.8 MCH 26.0 - 34.0 pg 28.6 MCHC 30.5 - 36.0 g/dL 32.2 RDW-CV 11.5 - 15.0 % 13.7 Platelet Count 150 - 400 k/uL 323 MPV 9.0 - 12.7 fL 10.1 Neut% % 56.4 Abs Neut (ANC) 1.45 - 7.50 k/uL 3.71 Lymph% % 26.2 Abs Lymph 1.00 - 4.00 k/uL 1.72 [place]% % 12.8 Abs [place] <0.87 k/uL 0.84 Eosin% % 3.2 Abs Eosin <0.46 k/uL 0.21 Baso% % 1.1 Abs Baso <0.11 k/uL 0.07 Immature Gran % % 0.3 IMMATURE GRANS (ABS) <0.10 k/uL <0.03 NRBC /100 WBC 0.0 Absolute nRBC <0.01 k/uL <0.01 DTYPE Auto Protein, Total 6.3 - 8.0 g/dL 7.5 Albumin 3.9 - 4.9 g/dL 4.7 Calcium 8.5 - 10.2 mg/dL 9.4 Bilirubin, Total 0.2 - 1.3 mg/dL 0.4 Alkaline Phosphatase 38 - 113 U/L 85 AST 14 - 40 U/L 26 ALT 10 - 54 U/L 37 Glucose 74 - 99 mg/dL 82 BUN 9 - 24 mg/dL 15 Creatinine 0.73 - 1.22 mg/dL 0.80 Sodium 136 - 144 mmol/L 137 Potassium 3.7 - 5.1 mmol/L 5.1 Chloride 97 - 105 mmol/L 99 CO2 22 - 30 mmol/L 26 Anion Gap 9 - 18 mmol/L 12 eGFR >=60 mL/min/1.73m 101 Cholesterol, Total <200 mg/dL 189 Triglyceride <150 mg/dL 221 (H) HDL Cholesterol >39 mg/dL 44 Non HDL Cholesterol <130 mg/dL 145 (H) Fasting Time hrs 12 VLDL Cholesterol <30 mg/dL 44 (H) TC:HDL Ratio <5.10 4.30 LDL Cholesterol <100 mg/dL 101 (H) LDL:HDL Ratio <2.54 2.30 Hemoglobin A1C 4.3 - 5.6 % 5.8 (H) Estimated Average Glucose mg/dL 120 MEDICATIONS: Current Outpatient Medications Medication Sig atorvastatin (LIPITOR) 20 mg tablet Take 1 tablet by mouth once daily. triamcinolone acetonide (NASACORT NASAL) Use in the nose. LORazepam (ATIVAN) 0.5 mg Take 1 tablet by mouth three times daily as needed (anxiety) for up to 90days. fexofenadine (SHANNAN) 180 mg tablet Take 180 mg by mouth once daily. benazepril (LOTENSIN) 20 mg tablet Take 1 tablet by mouth once daily. calcium carbonate (TUMS ORAL) Take 2 tablets by mouth as needed. hydroCHLOROthiazide (HYDRODIURIL, ESIDRIX) 12.5 mg tablet Take 12.5 mg by mouth twice daily. XARELTO 20 mg tablet Take 1 tablet by mouth once daily. melatonin 3 mg capsules Take 3 mg by mouth at bedtime as needed. potassium chloride (K-TAB) 10 mEq tablet Take 10 mEq by mouth once daily. diltiazem CD (CARDIZEM CD, CARTIA XT) 240 mg 24 hr capsule Take 1 capsule by mouth once daily. metoprolol tartrate, short acting, (LOPRESSOR) 100 mg tablet Take 100 mg by mouth twice daily. No current facility-administered medications for this visit. ALLERGIES: ALLERGIES Allergen Reactions Vicodin [Hydrocodon* Mental Status Change PAST MEDICAL HISTORY Diagnosis Date Anticoagulant long-term use Arrhythmia At risk for stroke [id number] = 1 (HTN) Essential hypertension Essential hypertension Generalized anxiety disorder Hemorrhage of gastrointestinal tract, unspecified Hemorrhoids Paroxysmal atrial fibrillation (HCC) Rectal bleeding 09/2021 Sleep apnea does not use cpap. Snoring PAST SURGICAL HISTORY Procedure Laterality Date COLONOSCOPY FLX DX W/COLLJ SPEC WHEN PFRMD 07/11/2008 Colonoscopy COLONOSCOPY FLX DX W/COLLJ SPEC WHEN PFRMD 05/26/2018 Colonoscopy ESOPHAGOGASTRODUODENOSCOPY TRANSORAL DIAGNOSTIC 05/26/2018 EGD ESOPHAGOGASTRODUODENOSCOPY TRANSORAL DIAGNOSTIC 04/02/2022 EYE SURGERY HX HEMORRHOID: RUBBERBAND, SINGLE/MULTIPLE 10/04/2021 HEMORRHOID;BAND LIGAT, SNGL/MUL 04/02/2022 HEMORRHOIDECTOMY INTERNAL RUBBER BAND LIGATIONS 05/26/2018 PROCEDURE RM-COLONSCOPY W/BX 04/02/2022 FAMILY HISTORY Problem Relation Age of Onset Heart Mother Valve Replacement COPD Mother other (history of smoking) Mother Hypertension Father Kidney failure Father kidney disease - on dialysis Heart disease Father heart valve problem Hypertension Sister Hyperlipidemia Sister other (sudden infant ) Brother other (sudden infant ) Brother Thyroid Son Prostate Cancer No Family History none Social History Tobacco Use Smoking status: Never Smokeless tobacco: Never Vaping Use Vaping Use: Never used Substance Use Topics Alcohol use: Yes Comment: very occasional Drug use: No Reviewed current medications, allergies, past medical history, surgical history, family history andsocial history today. REVIEW OF SYSTEMS All other reviewed and negative other than HPI. VITALS: BP 130/86 Pulse 62 Resp 16 Wt 105.7 kg (233 lb) SpO2 98% BMI 33.43 kg/m Last 4 Encounter Wt Readings: Date: Wt: 04/19/2023 105.7 kg (233 lb) 03/04/2023 103.9 kg (229 lb) 02/20/2023 103.8 kg (228 lb 12.8 oz) 11/25/2022 105.7 kg (233 lb) PHYSICAL EXAMINATION: General appearance: Well appearing, alert, in no acute distress, well-hydrated, well nourished. Skin: Skin color, texture, turgor normal, no suspicious rashes or lesions Head: Normocephalic, no masses, lesions, tenderness or abnormalities Lungs: Lungs clear to auscultation. No wheezing, rhonchi, rales Heart: RRR without murmur, gallop, or rubs. No ectopy Abdomen: Normal abdominal exam, Abdomen soft, non-tender. Bowel sounds normal. No masses, organomegaly Extremities: No deformities, edema, skin discoloration, clubbing or cyanosis. Good capillary refill. BACK: Normal curvature of spine. No spine tenderness. Straight leg test negative. Deep tendon reflexes 2+/4 at patellas. Normal lower extremity strength. Negative figure four of the hip. No definite hernia. Testicle itself is nontender. No masses. Tender near groin musculatur. ASSESSMENT/PLAN: 1. Left inguinal pain - ICD9: 789.04, ICD10: R10.32 (primary diagnosis) - seems more musculoskeletal. Discussed risks and benefits of new medication with the patient. Advised them to call if any side effects or questions. - Red flags for re-assessment reviewed with patient in detail. - Call if symptoms worsen at all or if not better in one to two weeks Given hx of hydroureter, recheck urine and renal us. Doubt hernia. Can see surgery if continues to have. - PREDNISONE 20 MG TABLET - BASIC METABOLIC PNL - CBC + DIFF - URINALYSIS, WITH MICROSCOPIC - URINE CULTURE - US KIDNEY/BLADDER 2. Essential hypertension - ICD9: 401.9, ICD10: I10 - Controlled - Continue current medications 3. Paroxysmal atrial fibrillation (HCC) - ICD9: 427.31, ICD10: I48.0 - stay on meds. 4. Anticoagulant long-term use - ICD9: V58.61, ICD10: Z79.01 - follow. 5. Hydroureter - ICD9: 593.5, ICD10: N13.4 - US KIDNEY/BLADDER Alan Ward MD documented [facility] [place] Miscellaneous Notes* Telephone Encounter - Maribell Robertson LPN - 03/10/2023 1:56 PM EDT Patient has been identified by name and date of : Yes Requested Prescriptions Pending Prescriptions Disp Refills atorvastatin (LIPITOR) 20 mg tablet 30 tablet 11 Sig: Take 1 tablet by mouth once daily. RX INSTRUCTIONS: Patient aware RX will be sent to pharmacy. No need to notify patient. Maribell Robertson LPN documented in this encounter[facility] [place] Instructions* Patient Instructions* Charlene Beck APRN.[facility] - 02/20/2023 8:46 AM EDT Fact Sheet for Patients And Caregivers Emergency Use Authorization (EUA) Of LAGEVRIO (molnupiravir) capsules For Coronavirus Disease 2019 (COVID-19) What is the most important information I should know about LAGEVRIO? LAGEVRIO may cause serious side effects, including: LAGEVRIO may cause harm to your unborn baby. It is not known if LAGEVRIO will harm your baby if youtake LAGEVRIO during . LAGEVRIO is not recommended for use in . LAGEVRIO has not been studied in . LAGEVRIO was studied in animals only. When LAGEVRIO was given to animals, LAGEVRIO caused harm to their unborn babies. You and your healthcare provider may decide that you should take LAGEVRIO during if thereare no other COVID-19 treatment options approved or authorized by the FDA that are accessible or clinically appropriate for you. If you and your healthcare provider decide that you should take LAGEVRIO during , you and your healthcare provider should discuss the known and potential benefits and the potential risks of taking LAGEVRIO during . For individuals who are able to become : You should use a reliable method of control (contraception) consistently and correctly duringtreatment with LAGEVRIO and for 4 days after the last dose of LAGEVRIO. Talk to your healthcare provider about reliable control methods. Before starting treatment with LAGEVRIO your healthcare provider may do a test to see if you are before starting treatment with LAGEVRIO. Tell your healthcare provider right away if you become or think you may be duringtreatment with LAGEVRIO. Registry: There is a registry for individuals who take LAGEVRIO during . The purpose of this program is to collect information about the health of you and your baby. If you are or become during treatment with LAGEVRIO, you are encouraged to reportyour use of LAGEVRIO during to this registry at https://covid-pr.[employer] or . For individuals who are sexually active with partners who are able to become : It is not known if LAGEVRIO can affect sperm. While the risk is regarded as low, animal studies to fully assess the potential for LAGEVRIO to affect the babies of males treated with LAGEVRIO have notbeen completed. A reliable method of control (contraception) should be used consistently and correctly during treatment with LAGEVRIO and for at least 3 months after the last dose. The risk to sperm beyond 3 months is not known. Studies to understand the risk to sperm beyond 3 months are ongoing. Talk to your healthcare provider about reliable control methods. Talk to your healthcare provider if you have questions or concerns about how LAGEVRIO may affect sperm. You are being given this fact sheet because your healthcare provider believes it is necessary to provide you with LAGEVRIO for the treatment of adults with a current diagnosis of mild-tomoderate coronavirus disease 2019 (COVID-19) who are at high risk for progression to severe COVID-19, including hospitalization or , and for whom other COVID-19 treatment options approved or authorized by theFDA are not accessible or clinically appropriate. The [place]. Food and Drug Administration (FDA) has issued an Emergency Use Authorization (EUA) to makeLAGEVRIO available during the COVID-19 pandemic (for more details about an EUA please see What is an Emergency Use Authorization? at the end of this document). LAGEVRIO is not an FDA-approved medicine in the [place]. Read this Fact Sheet for information about LAGEVRIO. Talk to your healthcareprovider about your options if you have any questions. It is your choice to take LAGEVRIO. What is COVID-19? COVID-19 is caused by a virus called a coronavirus. You can get COVID-19 through close contact withanother person who has the virus. COVID-19 illnesses have ranged from very dfkd-qx-borigy, including illness resulting in . While information so far suggests that most COVID-19 illness is mild, serious illness can happen and maycause some of your other medical conditions to become worse. Older people and people of all ages with severe, long lasting (chronic) medical conditions like heart disease, lung disease and diabetes, for example seem to be at higher risk of being hospitalized for COVID-19. What is LAGEVRIO? LAGEVRIO is an investigational medicine used to treat adults with a current diagnosis of mild to moderate COVID-19: who are at high risk for progression to severe COVID-19 including hospitalization or , and for whom other COVID-19 treatment options approved or authorized by the FDA are not accessible or clinically appropriate. The FDA has authorized the emergency use of LAGEVRIO for the treatment of mild- tomoderate COVID-19 in adults under an EUA. For more information on EUA, see the What is an Emergency Use Authorization (EUA)? section at the end of this Fact Sheet. LAGEVRIO is not authorized: for use in people less than 18 years of age. for prevention of COVID-19. for people needing hospitalization for COVID-19. for use for longer than 5 consecutive days. What should I tell my healthcare provider before I take LAGEVRIO? Tell your healthcare provider if you: have any allergies are or plan to breastfeed have any serious illnesses Take any medicines including prescription, tccn-ueu-uulxufh medicines, vitamins, and herbal products. How do I take LAGEVRIO? Take LAGEVRIO exactly as your healthcare provider tells you to take it. Take 4 capsules of LAGEVRIO every 12 hours (for example, at 8 am and at 8 pm) Take LAGEVRIO for 5 days. It is important that you complete the full 5 days of treatment with LAGEVRIO. Do not stop taking LAGEVRIO before you complete the full 5 days of treatment, even if you feel better. Take LAGEVRIO with or without food. You should stay in isolation for as long as your healthcare provider tells you to. Talk to your healthcare provider if you are not sure about how to properly isolate while you have COVID-19. Swallow LAGEVRIO capsules whole. Do not open, break, or crush the capsules. If you cannot swallow capsules whole, tell your healthcare provider. If your healthcare provider prescribes LAGEVRIO and tells you to take or give a dose through a nasogastric (NG) or orogastric (OG) tube, follow the instructions below: How to take or give a dose of LAGEVRIO through a nasogastric (NG) or orogastric (OG) feeding tube. You must have an NG or OG that is size 12 Lithuanian (FR) or larger. If you miss a dose of LAGEVRIO: If it has been less than 10 hours since the missed dose, take it as soon as you remember. If it has been more than 10 hours since the missed dose, skip the missed dose and take your dose atthe next scheduled time. Do not double the dose of LAGEVRIO to make up for a missed dose. How to take or give a dose of LAGEVRIO through a nasogastric (NG) or orogastric (OG) feeding tube: Wash your hands well with soap and water. Gather the supplies you will need to take or give the prescribed dose of LAGEVRIO. 4 LAGEVRIO capsules 1 liquid measuring cup with mL markings to measure 40 mL of room temperature water 1 clean container with a lid 1 catheter tip syringe. Your healthcare provider should tell you what size catheter tip syringe youwill need to take or give a dose of LAGEVRIO. Place the needed supplies on a clean work surface. Follow your healthcare provider s instructions on how to flush the NG or OG feeding tube. Flush theNG or OG feeding tube with 5 mL of water before taking or giving a dose of LAGEVRIO. Carefully open 4 LAGEVRIO capsules, one at a time, and empty the contents into a clean container. Use the liquid measuring cup to measure 40 mL of room temperature water and add to the container containing the capsule contents. Place the lid on the container. Shake to mix the capsule contents and water well for 3 minutes. Thecapsule contents may not dissolve completely. Remove the lid from the container and draw up all the LAGEVRIO and water mixture into a catheter tip syringe. Give all of the mixture right away through the NG or OG feeding tube. Do not keep the mixture for future use. If any capsule contents are left in the container: Add 10 mL of water to the container, and mix to loosen any capsule contents that are left in the container. Use the catheter tip syringe to draw up all of the mixture in the container. Give the mixture through the NG or OG feeding tube. Repeat this process as needed until you no longer see any capsule contents left in the container orcatheter tip syringe. Use the same catheter tip syringe to flush the NG or OG feeding tube 2 times with 5 mL of water (10mL total). Rinse the container, lid and catheter tip syringe well with clean water after use. Place on a cleanpaper towel until next use. What are the important possible side effects of LAGEVRIO? See, What is the most important information I should know about LAGEVRIO? Allergic Reactions. Allergic reactions can happen in people taking LAGEVRIO, even after only 1 dose. Stop taking LAGEVRIO and call your healthcare provider right away if you get any of the following symptoms of an allergic reaction: hives rapid heartbeat trouble swallowing or breathing swelling of the mouth, lips, or face throat tightness hoarseness skin rash The most common side effects of LAGEVRIO are: diarrhea nausea dizziness These are not all the possible side effects of LAGEVRIO. Not many people have taken LAGEVRIO. Serious and unexpected side effects may happen. This medicine is still being studied, so it is possible that all of the risks are not known at this time. What other treatment choices are there? Veklury (remdesivir) is FDA-approved as an intravenous (IV) infusion for the treatment of mildto-moderate COVID-19 in certain adults and children. Talk with your doctor to see if Veklury is appropriate for you. Like LAGEVRIO, FDA may also allow for the emergency use of other medicines to treat people with COVID-19. Go to https://www.fda.gov/slenyzqwj-nsqlvqyxyhdg-uly-response/rcn-pblhhnvquyahhrp-qgo- policy-framework/xxwmstpyq-dmk-fkqhupwoenimn for more information. It is your choice to be treated or not to be treated with LAGEVRIO. Should you decide not to take it, it will not change your standard medical care. What if I am ? is not recommended during treatment with LAGEVRIO and for 4 days after the last dose of LAGEVRIO. If you are or plan to breastfeed, talk to your healthcare provider about your options and specific situation before taking LAGEVRIO. How do I report side effects with LAGEVRIO? Contact your healthcare provider if you have any side effects that bother you or do not go away. Report side effects to FDA MedWatch at www.fda.gov/medwatch or call 7-858-ZUI-3295 ([phone]). How should I store LAGEVRIO? Store LAGEVRIO capsules at room temperature between 68 F to 77 F (20 C to 25 C). Keep LAGEVRIO and all medicines out of the reach of children. How can I learn more about COVID-19? Ask your healthcare provider. Visit www.cdc.gov/COVID19 Contact your local or state public health department. Call [employer] at (toll free in the [place] Visit www.[employer]Spring What Is an Emergency Use Authorization (EUA)? [facility] FDA has made LAGEVRIO available under an emergency access mechanism called an Emergency Use Authorization (EUA) The EUA is supported by a [place] of Health and Human Service ([facility])declaration that circumstances exist to justify emergency use of drugs and biological products during the COVID-19 pandemic. LAGEVRIO for the treatment of adults with a current diagnosis of yjlv-qt-xpmcgyaa COVID-19 who are at high risk for progression to severe COVID- 19, including hospitalization or , and for whom alternative COVID-19 treatment options approved or authorized by FDA are not accessible or clinically appropriate, has not undergone the same type of review as an FDAapproved product. In issuing an EUA under the COVID-19 public health emergency, the FDA has determined, among other things, that based on the total amount of scientific evidence available including data from adequate and well-controlledclinical trials, if available, it is reasonable to believe that the product may be effective for diagnosing, treating, or preventing COVID-19, or a serious or life-threatening disease or condition caused by COVID-19; that the known and potential benefits of the product, when used to diagnose, treat, or prevent such disease or condition, outweigh the known and potential risks of such product; and that there are no adequate, approved, and available alternatives. All of these criteria must be met to allow for the product to be used in the treatment of patients during the COVID-19 pandemic. The EUA for LAGEVRIO is in effect for the duration of the COVID-19 declaration justifying emergency use of LAGEVRIO, unless terminated or revoked (after which LAGEVRIO may no longer be used under the EUA). Shani. for: [employer] [address] For patent information: www.[employer]/research/patent Copyright [employer] [place], [place], [facility] and its affiliates. All rights reserved. [id number] Revised: July 2022 documented in this encounter[facility] [place] History of Present illness Narrative* Charlene Beck APRN.CNP - 02/20/2023 8:42 AM EDT Molnupiravir Eligibility and Patient Discussion [facility] Formulary Restriction Criteria: Adult outpatients 18 years and older with ALL of the following: [x] Patient has symptoms for 5 days or less [x] Not requiring hospitalization at any time for management of COVID-19 [x] Not requiring supplemental oxygen or a change in baseline supplemental oxygen [x] Not utilized for pre-exposure or post-exposure prophylaxis for prevention of COVID-19 [x] Patient is not or lactating [x] Meeting at least one of the criteria for high risk of progression to severe COVID-19: [] Age over 65 years [] Cancer [] Chronic kidney disease [] Chronic liver disease [] Chronic lung diseases, including cystic fibrosis [] Dementia or other neurological conditions [] Diabetes (type 1 or type 2) [] Disabilities, including Down syndrome and neurodevelopmental disorders [x] Heart conditions [] HIV infection [] Immunocompromised state [] Mental health conditions [] Medical related technological dependence (tracheostomy, gastrostomy, or positive pressure ventilation (not related to COVID) [x] Overweight and obesity (BMI greater or equal to 25 for adults) [] Physical inactivity [] Sickle cell disease or thalassemia [] Smoking, current or former [] Solid organ or blood stem cell transplant [] Stroke or cerebrovascular disease [] Substance use disorders [] Tuberculosis [] People from racial and ethnic minority groups Criteria above are met: Yes Date of Symptom Onset: 02/19/23 Patient received COVID vaccine: Yes / status reviewed: Females: [] Patient is not currently and there is no possibility the patient could be (select one of the following): [] test does not need to be confirmed in patients who have undergone permanent sterilization, are currently using an intrauterine system or contraceptive implant, or in whom is not possible. [] Patients not meeting conditions above: assess whether the patient is based on the firstday of the last menstrual period in individuals who have regular menstrual cycles, is using reliable method of contraception correctly and consistently or have had a negative test [] A test is recommended if the individual has irregular menstrual cycles, is unsure of the first day of the last menstrual period or is not using effective contraception correctly and consistently [] Patient is not currently . is not recommended during treatment and for four days after final dose of molnupiravir. [] Females have been advised to use a reliable method of contraception correctly and consistently for the duration of treatment and for four days after the last dose of molnupiravir Males: CC: Patient presents with: Covid19 Concern: Cough, TREVIÑO, congestion, bodyaches, fatigue x1 day, + rapid x last night HPI: Andrea Piedra is a 62 year old male who presents to the office with complaint of head congestion, cough, nonproductive, and sinus symptoms for the past day. Symptoms are staying the same. Associated symptoms includes cough. Denies fever, nausea, vomiting , and diarrhea. Treatments tried include nothing so far. with no relief of symptoms. Sick contacts: unknown. History of asthma, frequent episodes of bronchitis, chronic bronchitis, bronchiectasis or COPD: No Smoker: No Seasonal/environmental allergies: No The ROS is otherwise negative. The patient's pmh, medications, allergies, and past visits are reviewed. PHYSICAL EXAM: BP 163/91 Pulse 72 Temp 37.5 C (99.5 F) Resp 18 Wt 103.8 kg (228 lb 12.8 oz) SpO2 100% BMI 32.39 kg/m General appearance: alert, cooperative, pleasant, in no acute distress Head: Normocephalic Eyes: EOM's intact, conjunctiva pink and moist, no icterus, sclera white, non-injected Ears: Right ear: External ear/canal- Normal, TM - clear with good landmarks. Left ear: External ear/canal- Normal, TM - clear with good landmarks Heart: Negative. RRR without obvious murmur, gallop, or rubs. No ectopy. Lungs: clear to auscultation, without rales or wheeze, good air exchange PAST MEDICAL HISTORY Diagnosis Date Anticoagulant long-term use Arrhythmia At risk for stroke TWK0OTICTh = 1 (HTN) Essential hypertension Essential hypertension Generalized anxiety disorder Hemorrhage of gastrointestinal tract, unspecified Hemorrhoids Paroxysmal atrial fibrillation (HCC) Rectal bleeding 09/2021 Sleep apnea does not use cpap. Snoring PAST SURGICAL HISTORY Procedure Laterality Date COLONOSCOPY FLX DX W/COLLJ SPEC WHEN PFRMD 07/11/2008 Colonoscopy COLONOSCOPY FLX DX W/COLLJ SPEC WHEN PFRMD 05/26/2018 Colonoscopy ESOPHAGOGASTRODUODENOSCOPY TRANSORAL DIAGNOSTIC 05/26/2018 EGD ESOPHAGOGASTRODUODENOSCOPY TRANSORAL DIAGNOSTIC 04/02/2022 EYE SURGERY HX HEMORRHOID: RUBBERBAND, SINGLE/MULTIPLE 10/04/2021 HEMORRHOID;BAND LIGAT, SNGL/MUL 04/02/2022 HEMORRHOIDECTOMY INTERNAL RUBBER BAND LIGATIONS 05/26/2018 PROCEDURE RM-COLONSCOPY W/BX 04/02/2022 ALLERGIES Vicodin [Hydrocodone-Acetaminophen] MEDICATIONS triamcinolone acetonide (NASACORT NASAL) Use in the nose. LORazepam (ATIVAN) 0.5 mg Take 1 tablet by mouth three times daily as needed (anxiety) for up to 90days. fexofenadine (SHANNAN) 180 mg tablet Take 180 mg by mouth once daily. benazepril (LOTENSIN) 20 mg tablet Take 1 tablet by mouth once daily. atorvastatin (LIPITOR) 20 mg tablet Take 1 tablet by mouth once daily. calcium carbonate (TUMS ORAL) Take 2 tablets by mouth as needed. hydroCHLOROthiazide (HYDRODIURIL, ESIDRIX) 12.5 mg tablet Take 12.5 mg by mouth twice daily. XARELTO 20 mg tablet Take 1 tablet by mouth once daily. melatonin 3 mg capsules Take 3 mg by mouth at bedtime as needed. potassium chloride (K-TAB) 10 mEq tablet Take 10 mEq by mouth once daily. diltiazem CD (CARDIZEM CD, CARTIA XT) 240 mg 24 hr capsule Take 1 capsule by mouth once daily. metoprolol tartrate, short acting, (LOPRESSOR) 100 mg tablet Take 100 mg by mouth twice daily. molnupiravir 200 mg capsule Take 4 capsules by mouth twice daily for 5 days. flecainide (TAMBOCOR) 100 mg tablet Take 100 mg by mouth q 12 HR. (Patient not taking: Reported on 02/20/2023) busPIRone (BUSPAR) 5 mg tablet Take 1 tablet by mouth twice daily. (Patient not taking: Reported on10/21/2022) omeprazole (PRILOSEC) 20 mg capsule Take 2 capsules by mouth once daily. (Patient not taking: Reported on 02/20/2023) loratadine (CLARITIN) 10 mg tablet Take 10 mg by mouth once daily. (Patient not taking: Reported on02/20/2023) FAMILY HISTORY Problem Relation Age of Onset Heart Mother Valve Replacement COPD Mother other (history of smoking) Mother Hypertension Father Kidney failure Father kidney disease - on dialysis Heart disease Father heart valve problem Hypertension Sister Hyperlipidemia Sister other (sudden ) Brother other (sudden ) Brother Thyroid Son Prostate Cancer No Family History none Social History Tobacco Use Smoking status: Never Smokeless tobacco: Never Vaping Use Vaping Use: Never used Substance Use Topics Alcohol use: Yes Comment: very occasional Drug use: No Prescription instructions reviewed with patient as applicable. Potential red flag symptoms discussed with the patient. Reviewed appropriate action plan to take if red flag symptoms occur. Patient agreeable to treatment plan. Charlene Beck APRN.CNP Sexually active male with partner(s) of childbearing potential has been advised to use a reliable method of contraception correctly and consistently for intercourse for the duration of treatment and for three months after the last dose of molnupiravir I have discussed the use of the investigational therapeutic, molnupiravir, for the treatment of mild to moderate COVID-19 and its use under Emergency Use Authorization with the patient. The patient was informed that molnupiravir is not an FDA approved drug and that it is authorized for use under this Emergency Use Authorization. The patient was also informed of the significant knownbenefits and potential risks of molnupiravir, and the extent to which such potential risks and benefits are unknown. The patient was informed that there is mandatory reporting of all medication errors and serious adverse events potentially related to molnupiravir treatment within 7 calendar days from the onset of the event and that events up to 28 days after completion of therapy need to be reported. The discussion included alternatives to receiving molnupiravir, including clinical trials, and potential the risks and benefits of those alternatives. The patient was provided electronically withthe "Fact Sheet for Patients, Parents and Caregivers". The patient was also instructed that in addition to the treatment with molnupiravir, he/she should continue to self-isolate and use infection control measures (e.g., wear mask, isolate, social distance, avoid sharing personal items, clean and disinfect "high touch" surfaces, and frequent handwashing) according to CDC guidelines. The patient stated understanding and gave verbal consent to proceeding with molnupiravir treatment. Charlene Beck APRN.CNP February 20, 2023 8:48 AM ASSESSMENT/PLAN: 1. COVID - ICD9: 079.89, ICD10: U07.1 - MOLNUPIRAVIR 200 MG CAPSULE (EUA) Patient was educated about proper use of medication and supportive therapies. Charlene Beck APRN.JULIAN documented in this encounterSelect [facility] [place] Miscellaneous Notes* Telephone Encounter - Kaela Mccurdy LPN - 02/20/2023 8:05 AM EDT Patient calling he did home COVID test last evening and results were positive. His symptoms began yesterday morning coughing, congestion, headache, body aches. Patient has not done virtual visit on computer before, advised to go to [facility] for evaluation for paxlovid rx and wear a mask. documented in this encounterSelect [facility] [place] Miscellaneous Notes* Telephone Encounter - Mingo Perla LPN - 02/03/2023 9:02 AM EDT Patient phones requesting refills as follows: Requested Prescriptions Pending Prescriptions Disp Refills LORazepam (ATIVAN) 0.5 mg 90 tablet 0 Sig: Take 1 tablet by mouth three times daily as needed (anxiety) for up to 90 days. VALDEMAR 11/25/22 NOV no upcoming appt Please review and advise. Mingo Perla LPN documented in this encounterSelect [facility] [place]06-30-[facility]23 History of Present illness Narrative* Stacy Solis, PT - 12/20/2022 7:33 AM EDT Episode Visit Count: 1 Therapist That Will Accept/Oversee The Plan Of Care: Stacy Solis Start of Care Date: 12/20/22 Onset Date: 08/20/22 Plan of Care Certification Date: 12/20/22 Next Certification Due Date: 01/24/23 Patient Identified by Name and Date of : Yes REHABILITATION AND SPORTS THERAPY PHYSICAL THERAPY EVALUATION PLAN OF CARE: Assessment: Andrea Piedra presents with diagnosis of BPPV that interferes with (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 He presents with impairments in ADL's, overall function, and patient reported outcome measures. Patient did not complete the PROMIS (Patient Reported Outcome Measures Information System). Prognosis for therapy is Good due to: good support system/ coping skills, acuteness of condition, current objective clinical presentation . He will benefit from skilled therapy services to meet the goals established for this plan of care as noted below. Goals for Episode of Care: created on 12/20/22 through 01/31/23 Patient will have negative positional testing for BPPV. Patient will verbalize the understanding of the diagnosis BPPV, how to recognize symptoms and what to do if they return. Patient will return to prior level of function with all activities of daily living with trace reports of dizziness. Patient Goals: resolve vertigo with positional changes Planned Interventions, Frequency, and Duration: Current Frequency: 1x/week Duration: 6 weeks Total Number of Visits Planned: 6 Planned Treatment Interventions: Therapeutic exercise (35211), Neuromuscular re- education (20113), Manual therapy (60797), Therapeutic activities (17118), Self- longterm management (90438), Gait Training (21028), Canalith Repositioning Maneuvers (44695) PLAN FOR NEXT VISIT: assess symptom response to CRM for R posterior canalithiasis Patient demonstrates good understanding of plan of care and treatment. The above goals and plan of care were discussed and agreed upon by patient/family. SUBJECTIVE: Andrea Piedra is a 62 year old male seen today for for vertigo symptoms upon waking inFebrurary 2022. Pt. thought he was having a CVA and was taken to the ED by squad. CT unremarkable. Pt. 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 Vertigo described as "spinning." MRI unremarkable for acute findings. Pt. has been seen by ENT who dx pt. with BPPV and pt. describes having an vimal manuever. 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.) Prior Level of Function: Independent without limitations Relevant History Past Relevant Medical Conditions: Anxiety, Atrial Fibrillation, Hypertension Employment: [employer]: See Comment Intake Information: Prescription present Previous Treatment: (CRM by ENT and referring provider) Falls Interview: No positive findings with falls interview Concussion History of Concussion: No Vestibular Symptoms present for: months Symptom onset: sudden Dizziness: Yes Description: vertigo Rating of current symptoms: 0/10 Frequency: Intermittent Duration: seconds Symptoms worsened by: rolling right, rolling left, lying down Imbalance: Yes Imbalance triggered by: Nothing specific Fall Assessment: No falls Nausea: initially, without vomiting Motion Sickness: Current Headache: Yes Description: pressure Frequency: Intermittent ("getting better.") Neck Symptoms: No Jaw Symptoms: No Ear Symptoms: No Hearing Changes: (pt. not sure which ear) Tinnitus: No recent changes History of Syncope: No History of Migraine: No Denies: neurological complaints, visual changes, paresthesia, neuropathy, focal weakness, tremors Reports: dizziness, headaches Pain: Post Treatment Pain Post Treatment Symptoms: denies vertigo upon standing and ambulation PROMIS Scales T-scores: mean of general population = 50. 5 points is clinically meaningfully difference Percentiles provide an indication of how the patient's score ranks in relation to the general population. Higher percentile rankings indicate better function/quality of life. 50th percentile is the average of the general population and indicates half of respondents had a worse score. OBJECTIVE MEASURES WITH LEVEL OF FUNCTION: Oculomotor Testing Fixation Present Ocular ROM: WNL Spontaneous Nystagmus: No nystagmus Gaze Evoked Nystagmus: Not Present Saccadic eye movements: Horizontal, vertical and oblique all WNL. Head Thrusts: Negative Convergence (Distance): <8 cm X1 Viewing - Horizontal: WNL X1 Viewing - Vertical: WNL Cross Cover: Negative Oculomotor Testing Fixation Removed Gaze Evoked Nystagmus: Not present Head Shake: Negative Positional Testing Right [place]pike: Less than 60 seconds, Upbeat, Left Torsional / Counterclockwise Left [place]pike: Asymptomatic, No nystagmus Right Ear Down: Symptomatic, Less than 60 seconds, No nystagmus Education: Education Learning Preferences: Demonstration, Explanation, Performance, Printed Materials Barriers: None Learning/educational needs: Home exercise program, Plan of Care, Posture Education Provided: Yes, see treatment interventions for education provided Education Provided To: Patient Education Mode/Type: Explanation/Discussion, Literature/Printed Materials, Performance, Demonstration Response to Education/Teach Back: States/Identifies, Return Demonstration TREATMENT: PT Treatment Interventions: Self-Skilled Nursing Management, Canalith Repositioning Evaluation Self-Skilled Nursing Management: 1: *discussed BPPV diagnosis and purpose of CRM treatment 2: *post-CRM procedure instructions written for pt. Skilled Intervention: Skilled judgment in the selection of proper modification for activity of daily living/home management based on clinical presentation, deficits, and needs. Provided written instruction for activities of daily living techniques to facilitate proper performance and compliance. Reviewed patient specific diagnosis in relation to activities of daily living/home management. Activity progression based on professional judgement. Reviewed and educated patient on additions/changes for home program as noted above with an (*). Provided written instruction for home program to facilitate proper performance and compliance. Canalith Repositionin: *Vimal CRM for R posterior canalithiasis Skilled Intervention: Professional judgment was used to determine specific treatment interventions based on assessment of symptoms. Physically assisted patient through each step of repositioning. Verbal and tactile cues provided to patient to assist in moving between each position of maneuver in correct sequence. Patient education including handouts provided regarding self repostitioning techniques to be performed at home. Instructed patient in post repositioning procedures. Billing * Evaluation Low Complexity: 1 Unit Self-Care/Home Management Treatment Minutes: 10 * Canalith Repositionin unit Total Treatment Time Minutes (timed/untimed): 45 Stacy Solis PT documented in this encounterSelect [facility] [place]-05-[facility]23 History of Present illness Narrative* Alan Ward MD - 11/25/2022 8:38 AM EDT Patient presents with: Follow Up HPI: Patient presents today for office visit for follow up. Last ov. He had issues with buspar as soon as he took it. He had decided to retry it. Also was having vertigo. Offered vestibular therapy when there. When he moves fast he still gets vertigo. Hyperglycemia: A1C remains unchanged at 5.8 Anxiety: Still with same feelings. Not taking medications. Still feels like he has "brain fog" Feels a head pressure at times. Just had MRI of the brain with Dr. Lester. Wearing a hat some times helps. Stress seems better. Worrying not as much. No other neuro issues. Seemed to start with his bpv. Cardio: [facility] left medications the same. No chest pain or shortness of breath. No palpitations. MEDICATIONS: Current Outpatient Medications Medication Sig LORazepam (ATIVAN) 0.5 mg Take 1 tablet by mouth three times daily as needed (anxiety) for up to 90days. fexofenadine (SHANNAN) 180 mg tablet Take 180 mg by mouth once daily. benazepril (LOTENSIN) 20 mg tablet Take 1 tablet by mouth once daily. flecainide (TAMBOCOR) 100 mg tablet Take 100 mg by mouth q 12 HR. busPIRone (BUSPAR) 5 mg tablet Take 1 tablet by mouth twice daily. (Patient not taking: Reported on10/21/2022) omeprazole (PRILOSEC) 20 mg capsule Take 2 capsules by mouth once daily. atorvastatin (LIPITOR) 20 mg tablet Take 1 tablet by mouth once daily. calcium carbonate (TUMS ORAL) Take 2 tablets by mouth as needed. hydroCHLOROthiazide (HYDRODIURIL, ESIDRIX) 12.5 mg tablet Take 12.5 mg by mouth twice daily. XARELTO 20 mg tablet Take 1 tablet by mouth once daily. melatonin 3 mg capsules Take 3 mg by mouth at bedtime as needed. potassium chloride (K-TAB) 10 mEq tablet Take 10 mEq by mouth once daily. diltiazem CD (CARDIZEM CD, CARTIA XT) 240 mg 24 hr capsule Take 1 capsule by mouth once daily. metoprolol tartrate, short acting, (LOPRESSOR) 100 mg tablet Take 100 mg by mouth twice daily. loratadine (CLARITIN) 10 mg tablet Take 10 mg by mouth once daily. No current facility-administered medications for this visit. ALLERGIES: ALLERGIES Allergen Reactions Vicodin [Hydrocodon* Mental Status Change PAST MEDICAL HISTORY Diagnosis Date Anticoagulant long-term use Arrhythmia At risk for stroke [id number] = 1 (HTN) Essential hypertension Essential hypertension Generalized anxiety disorder Hemorrhage of gastrointestinal tract, unspecified Hemorrhoids Paroxysmal atrial fibrillation (HCC) Rectal bleeding 09/2021 Sleep apnea does not use cpap. Snoring PAST SURGICAL HISTORY Procedure Laterality Date COLONOSCOPY FLX DX W/COLLJ SPEC WHEN PFRMD 07/11/2008 Colonoscopy COLONOSCOPY FLX DX W/COLLJ SPEC WHEN PFRMD 05/26/2018 Colonoscopy ESOPHAGOGASTRODUODENOSCOPY TRANSORAL DIAGNOSTIC 05/26/2018 EGD ESOPHAGOGASTRODUODENOSCOPY TRANSORAL DIAGNOSTIC 04/02/2022 EYE SURGERY HX HEMORRHOID: RUBBERBAND, SINGLE/MULTIPLE 10/04/2021 HEMORRHOID;BAND LIGAT, SNGL/MUL 04/02/2022 HEMORRHOIDECTOMY INTERNAL RUBBER BAND LIGATIONS 05/26/2018 PROCEDURE RM-COLONSCOPY W/BX 04/02/2022 FAMILY HISTORY Problem Relation Age of Onset Heart Mother Valve Replacement COPD Mother other (history of smoking) Mother Hypertension Father Kidney failure Father kidney disease - on dialysis Heart disease Father heart valve problem Hypertension Sister Hyperlipidemia Sister other (sudden ) Brother other (sudden ) Brother Thyroid Son Prostate Cancer No Family History none Social History Tobacco Use Smoking status: Never Smokeless tobacco: Never Vaping Use Vaping Use: Never used Substance Use Topics Alcohol use: Yes Comment: very occasional Drug use: No Reviewed current medications, allergies, past medical history, surgical history, family history andsocial history today. REVIEW OF SYSTEMS All other reviewed and negative other than HPI. VITALS: BP 132/72 Pulse (!) 57 Wt 105.7 kg (233 lb) SpO2 97% BMI 32.99 kg/m Last 4 Encounter Wt Readings: Date: Wt: 10/21/2022 104.8 kg (231 lb) 10/02/2022 103.9 kg (229 lb) 04/11/2022 103.1 kg (227 lb 6.4 oz) 04/04/2022 100.7 kg (222 lb) PHYSICAL EXAMINATION: General appearance: Well appearing, alert, in no acute distress, well-hydrated, well nourished. Skin: Skin color, texture, turgor normal, no suspicious rashes or lesions Head: Normocephalic, no masses, lesions, tenderness or abnormalities Eyes: Anicteric sclera. Pupils are equally round and reactive to light. Extraocular movements are intact. , no nystagmus Neck: Supple, no adenopathy; thyroid symmetric, normal size, no bruits Lungs: Lungs clear to auscultation. No wheezing, rhonchi, rales Heart: RRR without murmur, gallop, or rubs. No ectopy Abdomen: Normal abdominal exam, Abdomen soft, non-tender. Bowel sounds normal. No masses, organomegaly Extremities: No deformities, edema, skin discoloration, clubbing or cyanosis. Good capillary refill. Neuro: Gait normal. Reflexes normal and symmetric. Sensation grossly intact., Negative findings: muscle tone normal, muscle strength normal, mildly positive hallpike with gaze either right or left. ASSESSMENT/PLAN: 1. Benign paroxysmal positional vertigo, unspecified laterality - ICD9: 386.11, ICD10: H81.10 - call if worsens. Start with vestibular therapy. Agreeable to treat. - CONSULT TO PHYSICAL THERAPY Alan Ward MD documented in this encounterSelect [facility] [place]-08-2023 Miscellaneous Notes* Telephone Encounter - Mercy Borrero MA - 10/28/2022 9:07 AM EDT Patient has been identified by name and date of : Yes Requested Prescriptions Pending Prescriptions Disp Refills LORazepam (ATIVAN) 0.5 mg 90 tablet 0 Sig: Take 1 tablet by mouth three times daily as needed (anxiety) for up to 90 days. RX INSTRUCTIONS: Patient aware RX will be sent to pharmacy. No need to notify patient. Patient last office visit: 10/21/22 Patient next office visit: 12/04/22 Mercy Borrero MA documented in this encounterSelect [facility] [place]-01-[facility]23 History of Present illness Narrative* Alan Ward MD - 10/21/2022 9:30 AM EDT Patient presents with: Follow Up HPI: Patient presents today for office visit for follow up. Changed his Claritin to Shannan and has seemed to help allergy symptoms. Using nasacort. [facility] worked up vertigo and all was normal. Diagnosed with bpv. Still has some mild symptoms.Did offer [facility] today at 4:00. Coming back in to discuss buspar for anxiety. He felt like his anxiety got worse while using it. Still having some dull headache that wraps around the head and intensifies with stress. Just had imaging studies. Massaging the head helps. Discussed trying another ssr. I wondered if he was having more anxiety regarding taking medications given his description. See previous ov: Patient endorses bout of Vertigo that began mid august and lasted about a week or two, describes it as sudden, Saw ENT for this issue, MRI was ordered, Patient states that ENT Dx with BPPV. Symptoms have since resolved. -Patient endorses increased issues with allergies: States feels like sinus inflammation, Endorsers head pressure, dry non productive cough, band like tightness, intermittent headahce, some lightheadedness- feels almost as if he is buzzed, sinus drainage and itchy eyes. Patient has been using claratin. nasocort since mid august- has noticed minimal improvement. Patient states this is the worst his allergies have been. Dicussed that his headaches have a tension related component. CARDIO: Sees cardio- will see October 21, recently Rx Flecainide PRN. States has only taken two pills and has not used since. Endorses intermitent Afib. RAMSEY: Patient is wearing CPAP. Endorses some nighttime awakenings, but is usually able to fall back asleep. States having some issues with anxiety with the mask. PSYCH:Oarrs done. Patient is dealing with significant life and family stressors. HYPERTENSION: Patient states is still taking blood pressure medications, endorses not checking BP at home. BP today is 142/80 HLD: Is taking Statin- denies any new muscle pain or discolored urine. GERD: Taking omeprazole PRN, stated GERD has been doing good, denies epigastric pain, burning, waterbrash MEDICATIONS: Current Outpatient Medications Medication Sig fexofenadine (SHANNAN) 180 mg tablet Take 180 mg by mouth once daily. benazepril (LOTENSIN) 20 mg tablet Take 1 tablet by mouth once daily. flecainide (TAMBOCOR) 100 mg tablet Take 100 mg by mouth q 12 HR. LORazepam (ATIVAN) 0.5 mg Take 1 tablet by mouth three times daily as needed (anxiety) for up to 90days. omeprazole (PRILOSEC) 20 mg capsule Take 2 capsules by mouth once daily. atorvastatin (LIPITOR) 20 mg tablet Take 1 tablet by mouth once daily. calcium carbonate (TUMS ORAL) Take 2 tablets by mouth as needed. hydroCHLOROthiazide (HYDRODIURIL, ESIDRIX) 12.5 mg tablet Take 12.5 mg by mouth once daily. XARELTO 20 mg tablet Take 1 tablet by mouth once daily. melatonin 3 mg capsules Take 3 mg by mouth at bedtime as needed. potassium chloride (K-TAB) 10 mEq tablet Take 10 mEq by mouth once daily. diltiazem CD (CARDIZEM CD, CARTIA XT) 240 mg 24 hr capsule Take 1 capsule by mouth once daily. metoprolol tartrate, short acting, (LOPRESSOR) 100 mg tablet Take 100 mg by mouth twice daily. busPIRone (BUSPAR) 5 mg tablet Take 1 tablet by mouth twice daily. (Patient not taking: Reported on10/21/2022) loratadine (CLARITIN) 10 mg tablet Take 10 mg by mouth once daily. No current facility-administered medications for this visit. ALLERGIES: ALLERGIES Allergen Reactions Vicodin [Hydrocodon* Mental Status Change PAST MEDICAL HISTORY Diagnosis Date Anticoagulant long-term use Arrhythmia At risk for stroke [id number] = 1 (HTN) Essential hypertension Essential hypertension Generalized anxiety disorder Hemorrhage of gastrointestinal tract, unspecified Hemorrhoids Paroxysmal atrial fibrillation (HCC) Rectal bleeding 09/2021 Sleep apnea does not use cpap. Snoring PAST SURGICAL HISTORY Procedure Laterality Date COLONOSCOPY FLX DX W/COLLJ SPEC WHEN PFRMD 07/11/2008 Colonoscopy COLONOSCOPY FLX DX W/COLLJ SPEC WHEN PFRMD 05/26/2018 Colonoscopy ESOPHAGOGASTRODUODENOSCOPY TRANSORAL DIAGNOSTIC 05/26/2018 EGD ESOPHAGOGASTRODUODENOSCOPY TRANSORAL DIAGNOSTIC 04/02/2022 EYE SURGERY HX HEMORRHOID: RUBBERBAND, SINGLE/MULTIPLE 10/04/2021 HEMORRHOID;BAND LIGAT, SNGL/MUL 04/02/2022 HEMORRHOIDECTOMY INTERNAL RUBBER BAND LIGATIONS 05/26/2018 PROCEDURE RM-COLONSCOPY W/BX 04/02/2022 FAMILY HISTORY Problem Relation Age of Onset Heart Mother Valve Replacement COPD Mother other (history of smoking) Mother Hypertension Father Kidney failure Father kidney disease - on dialysis Heart disease Father heart valve problem Hypertension Sister Hyperlipidemia Sister other (sudden infant ) Brother other (sudden ) Brother Thyroid Son Prostate Cancer No Family History none Social History Tobacco Use Smoking status: Never Smokeless tobacco: Never Vaping Use Vaping Use: Never used Substance Use Topics Alcohol use: Yes Comment: very occasional Drug use: No Reviewed current medications, allergies, past medical history, surgical history, family history andsocial history today. REVIEW OF SYSTEMS All other reviewed and negative other than HPI. HEALTH MAINTENANCE: Reviewed health maintenance issues today and recommended the following in detail. DEPRESSION ASSESSMENT -done VITALS: BP 128/82 Pulse (!) 55 Wt 104.8 kg (231 lb) SpO2 96% BMI 32.70 kg/m Last 4 Encounter Wt Readings: Date: Wt: 10/02/2022 103.9 kg (229 lb) 04/11/2022 103.1 kg (227 lb 6.4 oz) 04/04/2022 100.7 kg (222 lb) 03/29/2022 101.9 kg (224 lb 9.6 oz) PHYSICAL EXAMINATION: General appearance: Well appearing, alert, in no acute distress, well-hydrated, well nourished. Skin: Skin color, texture, turgor normal, no suspicious rashes or lesions Head: Normocephalic, no masses, lesions, tenderness or abnormalities Eyes: Anicteric sclera. Pupils are equally round and reactive to light. Extraocular movements are intact. Lungs: Lungs clear to auscultation. No wheezing, rhonchi, rales Heart: RRR without murmur, gallop, or rubs. No ectopy Abdomen: Normal abdominal exam, Abdomen soft, non-tender. Bowel sounds normal. No masses, organomegaly Extremities: No deformities, edema, skin discoloration, clubbing or cyanosis. Good capillary refill. ASSESSMENT/PLAN: 1. Essential hypertension - ICD9: 401.9, ICD10: I10 (primary diagnosis) - stable. 2. BPPV (benign paroxysmal positional vertigo), unspecified laterality - ICD9: 386.11, ICD10: H81.10 - offered vestibular therapy. 3. Anxiety - ICD9: 300.00, ICD10: F41.9 - having tension headaches. - he will retry the meds. Reassurance given. Call if symptoms worsen at all or if not better in oneto two weeks Alan Ward documented in this encounterSelect [facility] [place]04-17-[facility]23 Miscellaneous Notes* Telephone Encounter - Mingo Perla LPN - 10/07/2022 10:40 AM EDT Patient phones requesting refills as follows: Requested Prescriptions Pending Prescriptions Disp Refills benazepril (LOTENSIN) 20 mg tablet 90 tablet 1 Sig: Take 1 tablet by mouth once daily. VALDEMAR 10/02/22 NOV 11/13/22 Please review and advise. Mingo Perla LPN documented in this encounterSelect [facility] [place]04-12-[facility]23 History of Present illness Narrative* Alan Ward MD - 10/02/2022 8:07 AM EDT Patient presents with: Physical HPI: Patient presents today for office visit for physical. -Patient endorses bout of Vertigo that began mid august and lasted about a week or two, describes itas sudden, Saw ENT for this issue, MRI was ordered, Patient states that ENT Dx with BPPV. Symptoms have since resolved. -Patient endorses increased issues with allergies: States feels like sinus inflammation, Endorsers head pressure, dry non productive cough, band like tightness, intermittent headahce, some lightheadedness- feels almost as if he is buzzed, sinus drainage and itchy eyes. Patient has been using claratin. nasocort since august- has noticed minimal improvement. Patient states this is the worst his allergies have been. Dicussed that his headaches have a tension related component. CARDIO: Sees cardio- will see October 21, recently Rx Flecainide PRN. States has only taken two pills and has not used since. Endorses intermitent Afib. RAMSEY: Patient is wearing CPAP. Endorses some nighttime awakenings, but is usually able to fall back asleep. States having some issues with anxiety with the mask. PSYCH:Oarrs done. Patient is dealing with significant life and family stressors. HYPERTENSION: Patient states is still taking blood pressure medications, endorses not checking BP at home. BP today is 142/80 HLD: Is taking Statin- denies any new muscle pain or discolored urine. GERD: Taking omeprazole PRN, stated GERD has been doing good, denies epigastric pain, burning, waterbrash. Component Latest Ref Rng & Units 09/26/2022 WBC 3.70 - 11.00 k/uL 8.38 RBC 4.20 - 6.00 m/uL 4.87 Hemoglobin 13.0 - 17.0 g/dL 13.7 Hematocrit 39.0 - 51.0 % 42.0 MCV 80.0 - 100.0 fL 86.2 MCH 26.0 - 34.0 pg 28.1 MCHC 30.5 - 36.0 g/dL 32.6 RDW-CV 11.5 - 15.0 % 14.0 Platelet Count 150 - 400 k/uL 353 MPV 9.0 - 12.7 fL 9.9 Neut% % Abs Neut (ANC) 1.45 - 7.50 k/uL Lymph% % Abs Lymph 1.00 - 4.00 k/uL [place]% % Abs [place] <0.87 k/uL Eosin% % Abs Eosin <0.46 k/uL Baso% % Abs Baso <0.11 k/uL Immature Gran % % IMMATURE GRANS (ABS) <0.10 k/uL NRBC /100 WBC Absolute nRBC <0.01 k/uL <0.01 DTYPE Hemoglobin A1C 4.3 - 5.6 % 5.8 (H) Estimated Average Glucose mg/dL 120 MEDICATIONS: Current Outpatient Medications Medication Sig flecainide (TAMBOCOR) 100 mg tablet Take 100 mg by mouth q 12 HR. LORazepam (ATIVAN) 0.5 mg Take 1 tablet by mouth three times daily as needed (anxiety) for up to 90days. omeprazole (PRILOSEC) 20 mg capsule Take 2 capsules by mouth once daily. benazepril (LOTENSIN) 20 mg tablet Take 1 tablet by mouth once daily. (Patient taking differently: Take 20 mg by mouth twice daily.) atorvastatin (LIPITOR) 20 mg tablet Take 1 tablet by mouth once daily. calcium carbonate (TUMS ORAL) Take 2 tablets by mouth as needed. hydroCHLOROthiazide (HYDRODIURIL, ESIDRIX) 12.5 mg tablet Take 12.5 mg by mouth once daily. XARELTO 20 mg tablet Take 1 tablet by mouth once daily. melatonin 3 mg capsules Take 3 mg by mouth at bedtime as needed. potassium chloride (K-TAB) 10 mEq tablet Take 10 mEq by mouth once daily. diltiazem CD (CARDIZEM CD, CARTIA XT) 240 mg 24 hr capsule Take 1 capsule by mouth once daily. metoprolol tartrate, short acting, (LOPRESSOR) 100 mg tablet Take 100 mg by mouth twice daily. loratadine (CLARITIN) 10 mg tablet Take 10 mg by mouth once daily. peg 3350-Electrolytes (GOLYTELY) 236-22.74-6.74 -5.86 gram suspension Refer to printed prep instructions from your provider. (Patient not taking: No sig reported) No current facility-administered medications for this visit. ALLERGIES: ALLERGIES Allergen Reactions Vicodin [Hydrocodon* Mental Status Change PAST MEDICAL HISTORY Diagnosis Date Anticoagulant long-term use Arrhythmia At risk for stroke [id number] = 1 (HTN) Essential hypertension Essential hypertension Generalized anxiety disorder Hemorrhage of gastrointestinal tract, unspecified Hemorrhoids Paroxysmal atrial fibrillation (HCC) Rectal bleeding 09/2021 Sleep apnea does not use cpap. Snoring PAST SURGICAL HISTORY Procedure Laterality Date COLONOSCOPY FLX DX W/COLLJ SPEC WHEN PFRMD 07/11/2008 Colonoscopy COLONOSCOPY FLX DX W/COLLJ SPEC WHEN PFRMD 05/26/2018 Colonoscopy ESOPHAGOGASTRODUODENOSCOPY TRANSORAL DIAGNOSTIC 05/26/2018 EGD ESOPHAGOGASTRODUODENOSCOPY TRANSORAL DIAGNOSTIC 04/02/2022 EYE SURGERY HX HEMORRHOID: RUBBERBAND, SINGLE/MULTIPLE 10/04/2021 HEMORRHOID;BAND LIGAT, SNGL/MUL 04/02/2022 HEMORRHOIDECTOMY INTERNAL RUBBER BAND LIGATIONS 05/26/2018 PROCEDURE RM-COLONSCOPY W/BX 04/02/2022 FAMILY HISTORY Problem Relation Age of Onset Heart Mother Valve Replacement COPD Mother other (history of smoking) Mother Hypertension Father Kidney failure Father kidney disease - on dialysis Heart disease Father heart valve problem Hypertension Sister Hyperlipidemia Sister other (sudden infant ) Brother other (sudden ) Brother Thyroid Son Prostate Cancer No Family History none Social History Tobacco Use Smoking status: Never Smokeless tobacco: Never Vaping Use Vaping Use: Never used Substance Use Topics Alcohol use: Yes Comment: very occasional Drug use: No Reviewed current medications, allergies, past medical history, surgical history, family history andsocial history today. REVIEW OF SYSTEMS GENERAL: No weight loss, malaise or fevers HEENT: Patient endorses increased issues with allergies, sinus pressure, runny nose with clear discharge, itchy eyes, band like pressure on frontal area, some headahces. RESPIRATORY: Endorses dry cough, denies discolored sputum, wheezing, SOB. CARDIOVASCULAR: Endorses intermittent palpitations from Afib, denies chest pain, pressure, leg edema GI: No nausea, vomiting, or diarrhea and endorses some internal hemorrhoids, no recent blood in stool. : No history of dysuria, frequency or incontinence MUSCULOSKELETAL: Negative for joint pain or swelling, back pain or muscle pain SKIN: Negative for lesions, rash, and itching PSYCH: Endorses some nighttime awakenings, Endorses anxiety, denies anhedonia- states getting more excited about doing previous hobbies. Endorses some depression- states though this is improving as weather improves- though his recent health issues and family issues have been a source of recent stress in his life/ HEMATOLOGY/LYMPHOLOGY: Negative for prolonged bleeding, bruising easily or swollen nodes ENDOCRINE: Negative for cold or heat intolerance, polyuria, polydipsia and goiter NEURO: Endorses intermittent headache- band like pressure. Denies seizures, tremors. All other reviewed and negative other than HPI. HEALTH MAINTENANCE: Reviewed health maintenance issues today and recommended the following in detail. HIV SCREENING Never done SHINGRIX VACCINE(1 of 2) Never done DTAP,TDAP,TD(2 - Td or Tdap) due on 12/02/2018 COVID-19 VACCINE(4 - Booster for Pfizer series) due on 08/01/2021 DEPRESSION ASSESSMENT due on 06/23/2022 VITALS: BP 136/86 Pulse (!) 57 Resp 16 Ht 179 cm (5' 10.47") Wt 103.9 kg (229 lb) SpO2 98% BMI 32.42 kg/m Last 4 Encounter Wt Readings: Date: Wt: 10/02/2022 103.9 kg (229 lb) 04/11/2022 103.1 kg (227 lb 6.4 oz) 04/04/2022 100.7 kg (222 lb) 03/29/2022 101.9 kg (224 lb 9.6 oz) PHYSICAL EXAMINATION: General appearance: Well appearing, alert, in no acute distress, well-hydrated, well nourished. Skin: Skin color, texture, turgor normal, no suspicious rashes or lesions Head: Normocephalic, no masses, lesions, tenderness or abnormalities Eyes: Anicteric sclera. Pupils are equally round and reactive to light. Extraocular movements are intact. Ears: External ears normal, canals clear Nose/Sinuses: Negative except for mucosa erythematous and swollen, clear rhinorrhea Oropharynx: Lips, mucosa, and tongue normal, teeth and gums normal, oropharynx normal Neck: Supple, no adenopathy; thyroid symmetric, normal size, no bruits Back: Normal exam Lungs: Lungs clear to auscultation. No wheezing, rhonchi, rales Heart: RRR without murmur, gallop, or rubs. No ectopy Abdomen: Normal abdominal exam, Abdomen soft, non-tender. Bowel sounds normal. No masses, organomegaly Extremities: No deformities, edema, skin discoloration, clubbing or cyanosis. Good capillary refill. Musculoskeletal: No joint swelling, deformity, or tenderness Peripheral pulses: Normal Neuro: Gait normal. Reflexes normal and symmetric. Sensation grossly intact. ASSESSMENT/PLAN: 1. Well adult exam - ICD9: V70.0, ICD10: Z00.00 (primary diagnosis) - Counseled on healthy diet and regular exercise 2. Essential hypertension - ICD9: 401.9, ICD10: I10 - good control - Continue current medication(s) - Goal of BP <130/80 3. Pure hypercholesterolemia, unspecified - ICD9: 272.0, ICD10: E78.00 - doing well. 4. Mixed hyperlipidemia - ICD9: 272.2, ICD10: E78.2 - good control - Continue current medication. 5. Unspecified sleep apnea - ICD9: 780.57, ICD10: G47.30 - continue tx 6. Hyperglycemia - ICD9: 790.29, ICD10: R73.9 - stable. 7. Generalized anxiety disorder - ICD9: 300.02, ICD10: F41.1 - doing well. 8. Benign non-nodular prostatic hyperplasia without lower urinary tract symptoms - ICD9: 600.90, ICD10: N40.0 - on issues. 9. Anticoagulant long-term use - ICD9: V58.61, ICD10: Z79.01 - continue current meds. 10. Seasonal allergic rhinitis, unspecified trigger - ICD9: 477.9, ICD10: J30.2 - stabel. 11. Anxiety - ICD9: 300.00, ICD10: F41.9 - Discussed risks and benefits of new medication with the patient. Advised them to call if any sideeffects or questions. - BUSPIRONE 5 MG TABLET Alan Ward MD documented [facility] [place] Miscellaneous Notes* Telephone Encounter - Vicki Fischer LPN - 07/31/2022 7:55 AM EST Patient has been identified by name and date of : Yes, Provider Dr. ward Date 07/31/22 Time 7:56am Patient phones for refill(s): Requested Prescriptions Pending Prescriptions Disp Refills LORazepam (ATIVAN) 0.5 mg 90 tablet 0 Sig: Take 1 tablet by mouth three times daily as needed (anxiety) for up to 90 days. Date of last office visit in primary care: 03/29/22 next apt 09/27/22 Last 2 Encounter Wt Readings: Date: Wt: 04/11/2022 103.1 kg (227 lb 6.4 oz) 04/04/2022 100.7 kg (222 lb) Previous labs/tests for medication: Not applicable Thank you. Vicki Fischer LPN documented in this encounterSelect [facility] [place]-2022 Miscellaneous Notes* Telephone Encounter - Alan Ward MD - 05/02/2022 3:54 PM EST Bp is ok. * Telephone Encounter - Paola Willis LPN - 05/02/2022 3:42 PM EST Manual Readin/74 Pulse: 60 Reason for blood pressure check - Last BP elevated Patient is: Taking medication as prescribed Yes Took medication today Yes If no, date medication last taken N/A Experiencing side effects No BP was elevated at last appt 03/29/22. No BP medication changes were made at that time. Taking all medications as prescribed. Denies any chest pain, shortness of breath, dizziness, or headaches. Dailycaffeine use. No personal history of tobacco use; no current exposure. Alert and oriented. Pt has been identified by name and birthdate: Yes Allergies reviewed: Yes Latex allergy: no. Medication - prescribed and OTC reviewed and updated: Yes Do you need any prescription refills prior to your next visit: No Health Maintenance: Reviewed and not up to date and provider notified Patient advised to continue with current medications and would be contacted if any further instructions after review by PCP. Paola Willis LPN documented in this encounterSelect [facility] [place]22 History of Present illness Narrative* Paola Willis LPN - 05/02/2022 3:41 PM EST Manual Readin/74 Pulse: 60 Reason for blood pressure check - Last BP elevated Patient is: Taking medication as prescribed Yes Took medication today Yes If no, date medication last taken N/A Experiencing side effects No BP was elevated at last appt 03/29/22. No BP medication changes were made at that time. Taking all medications as prescribed. Denies any chest pain, shortness of breath, dizziness, or headaches. Dailycaffeine use. No personal history of tobacco use; no current exposure. Alert and oriented. Pt has been identified by name and birthdate: Yes Allergies reviewed: Yes Latex allergy: no. Medication - prescribed and OTC reviewed and updated: Yes Do you need any prescription refills prior to your next visit: No Health Maintenance: Reviewed and not up to date and provider notified Patient advised to continue with current medications and would be contacted if any further instructions after review by PCP. Paola Willis LPN documented in this encounterSelect [facility] [place]22 Miscellaneous Notes* Telephone Encounter - Sandi Aquino - 04/29/2022 12:04 PM EST Patient sent My Chart message requesting the following refill. Requested Prescriptions Pending Prescriptions Disp Refills LORazepam (ATIVAN) 0.5 mg 90 tablet 0 Sig: Take 1 tablet by mouth three times daily as needed (anxiety) for up to 90 days. Patient last appointment: 03/29/2022 Patient Phone numbers: [phone] (home) Request is for script(s) to be escript to pharmacy. Sandi Aquino documented in this encounterSelect [facility] [place]11-07-2022 Miscellaneous Notes* Telephone Encounter - Teresita Bernstein LPN - 04/29/2022 9:05 AM EST Canceled patient appointment for hemorrhoid banding, see note below. Please advise. Thank you. * Telephone Encounter - Verona Gama LPN - 04/29/2022 8:35 AM EST Patient called in requesting to cancel upcoming procedure due to decrease in symptoms. [facility] and would like advised further what next steps may be. Please advise and contact patient at [phone]. Verona Gama LPN documented in this encounterSelect [facility] [place]10-20-[facility]22 History of Present illness Narrative* Randy Goyal MD - 04/11/2022 6:59 PM EDT FOLLOW UP VISIT - ENDOSCOPY NAME: Andrea Verma [facility] NO.: [id number] DATE OF SERVICE: 04/11/2022 : 1960 REFERRING PHYSICIAN: Alan Ward MD Andrea is a patient I am following for abdominal complaints. The patient is a 61 year old male referred for abdominal pain. The patient noted right and left lower quadrant abdominal discomfort and a feeling of fullness. He also notes upper abdominal bloating. This does not necessarily be related to eating food. He denies change in his bowel habits. He notes no blood in his stools or black tarry stools. He is currently caring for a very young grandson and this has been very stressful. Given these abdominal symptoms and the fact that they were getting worse, along with the fact that he had a 3-day history of diarrhea with worsening abdominal cramping he presented to the emergency department. He underwent a CT scan of the abdomen pelvis which demonstrated a small left inguinal hernia versus a left inguinal cord lipoma. There was no bowel component to this. There were no other specific abnormalities noted on the CT scan. He was noted to have mildly elevated liver enzymes. His weight has increased recently. There was a question of a mildly dilated left ureter. There was a question of whether he had recently passed a kidney stone. He denied any hematuria or dysuria symptoms. Patient was seen by urology who felt that this was a nonspecific finding. Given the above findings, the patient was seen by Dr. Ward and referred to me for evaluation. The patient also noted a history of hemorrhoidal bleeding so we elected perform upper endoscopy lower endoscopy with plans for hemorrhoidal banding at the time of colonoscopy. I performed upper and lower endoscopy with hemorrhoidal banding on April 03, 2022. He noted significant bleeding during the bowel prep. He was maintained on oral anticoagulation for his cardiac history the patient was found to have: Upper endoscopy Impression: - Normal examined jejunum. Biopsied. - Normal examined duodenum. - Gastritis. Biopsied. - Normal lower third of esophagus. Biopsied. - Normal middle third of esophagus. Biopsied. Lower endoscopy Impression: - Hemorrhoids found on perianal exam. - The examined portion of the ileum was normal. Biopsied. - The entire examined colon is normal. Biopsied. - Bleeding hemorrhoids. Banded. The patient noted passing a clot the night of the procedure and called me. I informed her that I did not feel that was unusual given the amount of bleeding from his hemorrhoids and since there was not a large amount of blood recommended he continue his oral anticoagulant-Xarelto The patient called the office the morning of April 04 stating he is still noticing rectal bleeding nurse recommended he come in for evaluation. The patient states he has noted both some maroon stools and blood clots in the toilet bowl he noted one bowel movement that he thought was mostly maroon stool but then another bowel movement which had relatively normal-looking stool with what he described as looking like some red raisins and it. He notes slightly decreased urine output. He denies dizziness or other difficulties. Hemoglobin was obtained which showed a decrease from 3.6-12.9. I recommended he stop his Xarelto for 3 days. He returns now for follow-up and pathology results. He noted a significant decrease in bleeding butstill notes slight oozing slight blood-tinged spots with bowel movements. He does not wish to have repeat hemorrhoidal banding today. Pathology: FINAL DIAGNOSIS A. Jejunum, biopsy: - Small intestinal mucosa with no diagnostic abnormality (see comment). B. Stomach, antrum, biopsy: - Gastric antral mucosa and oxyntic mucosa with mild chronic inactive gastritis. - No morphologic evidence of Helicobacter pylori organisms (see comment). C. Esophagus, distal, biopsy: - Squamous mucosa with mild reactive epithelial changes. - Scant superficial fragment of cardiofundic-type mucosa, negative for intestinal metaplasia and dysplasia. D. Esophagus, mid, biopsy: - Squamous mucosa with no diagnostic abnormality. E. Terminal ileum, biopsy: - Small intestinal mucosa with no diagnostic abnormality. F. Colon, ascending, random, biopsy: - Focal active colitis. G. Colon, descending, random, biopsy: - Colonic mucosa with no diagnostic abnormality. - No evidence of microscopic colitis. He does note some improvement in his abdominal symptoms following starting the proton pump inhibitor. VITALS: Blood pressure 182/81, pulse 60, temperature 36.3 C (97.4 F), weight 103.1 kg (227 lb 6.4 oz), SpO2 98 %. On examination, the abdomen is benign. Assessment IMPRESSION: Post endoscopy bleeding-likely hemorrhoidal also potentially biopsy site bleeding PLAN: I reassured the patient that I did not feel he had significant blood loss and that given the fact that he had bleeding from his hemorrhoids prior to the procedure that he was having bleeding hemorrhoids significantly during the procedure and that he is now passing some blood this is most likely some hemorrhoidal bleeding but could also be due to the biopsies. At this time I recommended he hold his Xarelto for 3 days. I plan to see him in the office next week and plan for repeat anoscopy and banding at that time. I do recommend he take his proton pump inhibitor as recommended for the mild to moderate gastritis.I do not have pathology results yet. Diagnoses: (K62.5) Rectal bleeding (primary encounter diagnosis) Return to Clinic: The patient is instructed to follow-up with me in 2 weeks for hemorrhoidal banding if he is still having a small amount of bleeding. Randy Goyal MD documented in this encounterSelect [facility] [place]10-17-2022 Miscellaneous Notes* Telephone Encounter - Alysha Rincon RN - 04/08/2022 9:10 AM EDT Received PA request from [employer] for Omeprazole 20 mg 2 po QD #60. PA completed on-line. Response received "Drug is covered by current benefit plan. No further PA activity needed". Alysha Rincon RN documented in this encounterSelect [facility] [place]10-13-2022 History of Present illness Narrative* Randy Goyal MD - 04/04/2022 6:07 PM EDT FOLLOW UP VISIT - ENDOSCOPY NAME: Andrea Verma [facility] NO.: [id number] DATE OF SERVICE: 04/04/2022 : 1960 REFERRING PHYSICIAN: Alan Ward MD Andrea is a patient I am following for abdominal complaints. The patient is a 61 year old male referred for abdominal pain. The patient noted right and left lower quadrant abdominal discomfort and a feeling of fullness. He also notes upper abdominal bloating. This does not necessarily be related to eating food. He denies change in his bowel habits. He notes no blood in his stools or black tarry stools. He is currently caring for a very young grandson and this has been very stressful. Given these abdominal symptoms and the fact that they were getting worse, along with the fact that he had a 3-day history of diarrhea with worsening abdominal cramping he presented to the emergency department. He underwent a CT scan of the abdomen pelvis which demonstrated a small left inguinal hernia versus a left inguinal cord lipoma. There was no bowel component to this. There were no other specific abnormalities noted on the CT scan. He was noted to have mildly elevated liver enzymes. His weight has increased recently. There was a question of a mildly dilated left ureter. There was a question of whether he had recently passed a kidney stone. He denied any hematuria or dysuria symptoms. Patient was seen by urology who felt that this was a nonspecific finding. Given the above findings, the patient was seen by Dr. Ward and referred to me for evaluation. The patient also noted a history of hemorrhoidal bleeding so we elected perform upper endoscopy lower endoscopy with plans for hemorrhoidal banding at the time of colonoscopy. I performed upper and lower endoscopy with hemorrhoidal banding on April 03, 2022. He noted significant bleeding during the bowel prep. He was maintained on oral anticoagulation for his cardiac history the patient was found to have: Upper endoscopy Impression: - Normal examined jejunum. Biopsied. - Normal examined duodenum. - Gastritis. Biopsied. - Normal lower third of esophagus. Biopsied. - Normal middle third of esophagus. Biopsied. Lower endoscopy Impression: - Hemorrhoids found on perianal exam. - The examined portion of the ileum was normal. Biopsied. - The entire examined colon is normal. Biopsied. - Bleeding hemorrhoids. Banded. The patient noted passing a clot the night of the procedure and called me. I informed her that I did not feel that was unusual given the amount of bleeding from his hemorrhoids and since there was not a large amount of blood recommended he continue his oral anticoagulant-Xarelto The patient called the office this morning stating he is still noticing rectal bleeding nurse recommended he come in for evaluation. The patient states he has noted both some maroon stools and blood clots in the toilet bowl he noted one bowel movement that he thought was mostly maroon stool but then another bowel movement which had relatively normal-looking stool with what he described as lookinglike some red raisins and it. He notes slightly decreased urine output. He denies dizziness or other difficulties. VITALS: Blood pressure 162/78, pulse 72, temperature 36.6 C (97.9 F), temperature source Temporal, resp. rate 14, height 180.3 cm (5' 11"), weight 100.7 kg (222 lb), SpO2 99 %. Orthostatics were obtained. Standing and sitting blood pressure and pulse rate were the same. On examination, the abdomen is benign. I obtained a CBC. This demonstrated a decrease in hemoglobin from 13.6 to 12.9 Assessment IMPRESSION: Post endoscopy bleeding-likely hemorrhoidal also potentially biopsy site bleeding PLAN: I reassured the patient that I did not feel he had significant blood loss and that given the fact that he had bleeding from his hemorrhoids prior to the procedure that he was having bleeding hemorrhoids significantly during the procedure and that he is now passing some blood this is most likely some hemorrhoidal bleeding but could also be due to the biopsies. At this time I recommended he hold his Xarelto for 3 days. I plan to see him in the office next week and plan for repeat anoscopy and banding at that time. I do recommend he take his proton pump inhibitor as recommended for the mild to moderate gastritis.I do not have pathology results yet. Diagnoses: (K62.5) Rectal bleeding (primary encounter diagnosis) Return to Clinic: The patient is instructed to follow-up with me in one week. Randy Goyal MD documented in this encounterSelect [facility] [place]22 History of Past illness Narrative* Problem Noted Date Resolved Date Diarrhea 03/29/2022 10/21/2022 Special screening examination for viral disease 09/26/2021 09/26/2021 At risk for stroke 05/01/2021 10/21/2022 Epididymal cyst 07/18/2016 10/21/2022 Backache, unspecified 12/03/2013 09/04/2016 Hyperlipidemia 10/29/2012 09/26/2021 Palpitations 02/25/2012 03/28/2021 Pain in joint, lower leg 02/20/2010 013 Pain in joint, shoulder region 02/20/2010 0 10/29/2012 Routine general medical exam ination at a health care facility 10/16/2009 02/10/2012 Overview: 10/16/2009, from Dr. Galvan 10/12/2010, yearly check-up Cervicalgia 08/21/2005 10/29/2012 documented as of this encounter (statuses as of 10/21/2022) [facility] [place] History of Past illness Narrative* Problem Noted Date Resolved Date Diarrhea 03/29/2022 10/21/2022 Special screening examination for viral disease 09/26/2021 09/26/2021 At risk for stroke 05/01/2021 10/21/2022 Epididymal cyst 07/18/2016 10/21/2022 Backache, unspecified 12/03/2013 09/04/2016 Hyperlipidemia 10/29/2012 09/26/2021 Palpitations 02/25/2012 03/28/2021 Pain in joint, lower leg 02/20/2010 013 Pain in joint, shoulder region 02/20/2010 0 10/29/2012 Routine general medical exam ination at a health care facility 10/16/2009 02/10/2012 Overview: 10/16/2009, from Dr. Galvan 10/12/2010, yearly check-up Cervicalgia 08/21/2005 10/29/2012 documented as of this encounter (statuses as of 10/28/2022) [facility] [place] History of Past illness Narrative* Problem Noted Date Resolved Date Diarrhea 03/29/2022 10/21/2022 Special screening examination for viral disease 09/26/2021 09/26/2021 At risk for stroke 05/01/2021 10/21/2022 Epididymal cyst 07/18/2016 10/21/2022 Backache, unspecified 12/03/2013 09/04/2016 Hyperlipidemia 10/29/2012 09/26/2021 Palpitations 02/25/2012 03/28/2021 Pain in joint, lower leg 02/20/2010 013 Pain in joint, shoulder region 02/20/2010 0 10/29/2012 Routine general medical exam ination at a health care facility 10/16/2009 02/10/2012 Overview: 10/16/2009, from Dr. Gavlan 10/12/2010, yearly check-up Cervicalgia 08/21/2005 10/29/2012 documented as of this encounter (statuses as of 11/25/2022) [facility] [place] History of Past illness Narrative* Problem Noted Date Resolved Date Diarrhea 03/29/2022 10/21/2022 Special screening examination for viral disease 09/26/2021 09/26/2021 At risk for stroke 05/01/2021 10/21/2022 Epididymal cyst 07/18/2016 10/21/2022 Backache, unspecified 12/03/2013 09/04/2016 Hyperlipidemia 10/29/2012 09/26/2021 Palpitations 02/25/2012 03/28/2021 Pain in joint, lower leg 02/20/2010 013 Pain in joint, shoulder region 02/20/2010 0 10/29/2012 Routine general medical exam ination at a health care facility 10/16/2009 02/10/2012 Overview: 10/16/2009, from Dr. Galvan 10/12/2010, yearly check-up Cervicalgia 08/21/2005 10/29/2012 documented as of this encounter (statuses as of 12/20/2022) [facility]10-07-2022 History of Past illness Narrative* Problem Noted Date Diagnosed Date Resolved Date Diarrhea 03/29/2022 10/21/2022 Special screening examinatio n for viral disease 09/26/2021 09/26/2021 At risk for stroke 05/01/2021 3 Epididymal cyst 07/18/2016 10/21/2022 Backache, unspecified 12/03/20132016 Hyperlipidemia 10/29/2012 09/26/2021 Palpitations 02/25/2012 03/28/2021 Pain in joint, lower leg 02/20/201002/2013 Pain in joint, shoulder region 02/20/2010 10/29/2012 Routine general medical exam ination at a health care facility 10/16/2009 02/10/2012 Overview: 10/16/2009, from Dr. Galvan 10/12/2010, yearly check-up Cervicalgia 08/21/2005 10/29/2012 documented as of this encounter (statuses as of 02/04/2023) [facility]10-07[facility] History of Past illness Narrative* Problem Noted Date Diagnosed Date Resolved Date Diarrhea 03/29/2022 10/21/2022 Special screening examinatio n for viral disease 09/26/2021 09/26/2021 At risk for stroke 05/01/2021 3 Epididymal cyst 07/18/2016 10/21/2022 Backache, unspecified 12/03/20132016 Hyperlipidemia 10/29/2012 09/26/2021 Palpitations 02/25/2012 03/28/2021 Pain in joint, lower leg 02/20/201002/2013 Pain in joint, shoulder region 02/20/2010 10/29/2012 Routine general medical exam ination at a health care facility 10/16/2009 02/10/2012 Overview: 10/16/2009, from Dr. Galvan 10/12/2010, yearly check-up Cervicalgia 08/21/2005 10/29/2012 documented as of this encounter (statuses as of 02/20/2023) [facility] History of Past illness Narrative* Problem Noted Date Diagnosed Date Resolved Date Diarrhea 03/29/2022 10/21/2022 Special screening examinatio n for viral disease 09/26/2021 09/26/2021 Pure hypercholesterolemia, unspecified 07/13/2021 03/04/2023 At risk for stroke 05/01/2021 3 Epididymal cyst 07/18/2016 10/21/2022 Backache, unspecified 12/03/20132016 Hyperlipidemia 10/29/2012 09/26/2021 Palpitations 02/25/2012 03/28/2021 Pain in joint, lower leg 02/20/201002/2013 Pain in joint, shoulder region 02/20/2010 10/29/2012 Routine general medical exam ination at a health care facility 10/16/2009 02/10/2012 Overview: 10/16/2009, from Dr. Galvan 10/12/2010, yearly check-up Cervicalgia 08/21/2005 10/29/2012 documented as of this encounter (statuses as of 03/05/2023) [facility] History of Past illness Narrative* Problem Noted Date Diagnosed Date Resolved Date Diarrhea 03/29/2022 10/21/2022 Special screening examinatio n for viral disease 09/26/2021 09/26/2021 Pure hypercholesterolemia, unspecified 07/13/2021 03/04/2023 At risk for stroke 05/01/2021 3 Epididymal cyst 07/18/2016 10/21/2022 Backache, unspecified 12/03/20132016 Hyperlipidemia 10/29/2012 09/26/2021 Palpitations 02/25/2012 03/28/2021 Pain in joint, lower leg 02/20/201002/2013 Pain in joint, shoulder region 02/20/2010 10/29/2012 Routine general medical exam ination at a health care facility 10/16/2009 02/10/2012 Overview: 10/16/2009, from Dr. Galvan 10/12/2010, yearly check-up Cervicalgia 08/21/2005 10/29/2012 documented as of this encounter (statuses as of 03/10/2023) [facility] History of Past illness Narrative* Problem Noted Date Diagnosed Date Resolved Date Diarrhea 03/29/2022 10/21/2022 Special screening examinatio n for viral disease 09/26/2021 09/26/2021 Pure hypercholesterolemia, unspecified 07/13/2021 03/04/2023 At risk for stroke 05/01/2021 3 Epididymal cyst 07/18/2016 10/21/2022 Backache, unspecified 12/03/20132016 Hyperlipidemia 10/29/2012 09/26/2021 Palpitations 02/25/2012 03/28/2021 Pain in joint, lower leg 02/20/201002/2013 Pain in joint, shoulder region 02/20/2010 10/29/2012 Routine general medical exam ination at a [facility] care facility 10/16/2009 02/10/2012 Overview: 10/16/2009, from Dr. Galvan 10/12/2010, yearly check-up Cervicalgia 08/21/2005 10/29/2012 documented as of this encounter (statuses as of 04/19/2023) [facility] History of Past illness Narrative* Problem Noted Date Diagnosed Date Resolved Date Diarrhea 03/29/2022 10/21/2022 Special screening examinatio n for viral disease 09/26/2021 09/26/2021 Pure hypercholesterolemia, unspecified 07/13/2021 03/04/2023 At risk for stroke 05/01/2021 3 Epididymal cyst 07/18/2016 10/21/2022 Backache, unspecified 12/03/20132016 Hyperlipidemia 10/29/2012 09/26/2021 Palpitations 02/25/2012 03/28/2021 Pain in joint, lower leg 02/20/201002/2013 Pain in joint, shoulder region 02/20/2010 10/29/2012 Routine general medical exam ination at a health care facility 10/16/2009 02/10/2012 Overview: 10/16/2009, from Dr. Galvan 10/12/2010, yearly check-up Cervicalgia 08/21/2005 10/29/2012 documented as of this encounter (statuses as of 04/21/2023) [facility] History of Past illness Narrative* Problem Noted Date Diagnosed Date Resolved Date Diarrhea 03/29/2022 10/21/2022 Special screening examinatio n for viral disease 09/26/2021 09/26/2021 Pure hypercholesterolemia, unspecified 07/13/2021 03/04/2023 At risk for stroke 05/01/2021 3 Epididymal cyst 07/18/2016 10/21/2022 Backache, unspecified 12/03/20132016 Hyperlipidemia 10/29/2012 09/26/2021 Palpitations 02/25/2012 03/28/2021 Pain in joint, lower leg 02/20/201002/2013 Pain in joint, shoulder region 02/20/2010 10/29/2012 Routine general medical exam ination at a health care facility 10/16/2009 02/10/2012 Overview: 10/16/2009, from Dr. Galvan 10/12/2010, yearly check-up Cervicalgia 08/21/2005 10/29/2012 documented as of this encounter (statuses as of 04/29/2023) [facility] History of Past illness Narrative* Problem Noted Date Diagnosed Date Resolved Date Diarrhea 03/29/2022 10/21/2022 Special screening examinatio n for viral disease 09/26/2021 09/26/2021 Pure hypercholesterolemia, unspecified 07/13/2021 03/04/2023 At risk for stroke 05/01/2021 3 Epididymal cyst 07/18/2016 10/21/2022 Backache, unspecified 12/03/20132016 Hyperlipidemia 10/29/2012 09/26/2021 Palpitations 02/25/2012 03/28/2021 Pain in joint, lower leg 02/20/201002/2013 Pain in joint, shoulder region 02/20/2010 10/29/2012 Routine general medical exam ination at a health care facility 10/16/2009 02/10/2012 Overview: 10/16/2009, from Dr. Galvan 10/12/2010, yearly check-up Cervicalgia 08/21/2005 10/29/2012 documented as of this encounter (statuses as of 08/28/2023) [facility] History of Past illness Narrative* Problem Noted Date Diagnosed Date Resolved Date Diarrhea 03/29/2022 10/21/2022 Special screening examinatio n for viral disease 09/26/2021 09/26/2021 Pure hypercholesterolemia, unspecified 07/13/2021 03/04/2023 At risk for stroke 05/01/2021 Epididymal cyst 07/18/2016 10/21/2022 Backache, unspecified 12/03/20132016 Hyperlipidemia 10/29/2012 09/26/2021 Palpitations 02/25/2012 03/28/2021 Pain in joint, lower leg 02/20/201002/2013 Pain in joint, shoulder region 02/20/2010 10/29/2012 Routine general medical exam ination at a health care facility 10/16/2009 02/10/2012 Overview: 10/16/2009, from Dr. Galvan 10/12/2010, yearly check-up Cervicalgia 08/21/2005 10/29/2012 documented as of this encounter (statuses as of 09/05/2023) [facility] History of Present illness Narrative* Alan Ward MD - 03/29/2022 8:25 AM EDT Patient presents with: 6 Month Exam HPI: Patient presents today for office visit for follow up. Still sees Dr. Gonzalez. Still having palpitations. His fit bit shows he is in NSR. He thinks it is all stress related. Still having a lot of anxiety and stress due to personal family issues. Taking Lorazepam every night. Getting custody of his grandchild and has a custody issues. We discussed medication or counseling. He feels he is ok. Oarrs done. Aware of risks. No chest pain or shortness of breath. No edema. No dizziness or headaches. Still using CPAP. Complaints of fatigue throughout day. Not sure it's making a difference. Sees . Discussed that his fatigue may be related to stress. Saw Dr Goyal. Has colonoscopy next week. Component Latest Ref Rng & Units 03/26/2022 WBC 3.70 - 11.00 k/uL 7.78 RBC 4.20 - 6.00 m/uL 4.83 Hemoglobin 13.0 - 17.0 g/dL 13.6 Hematocrit 39.0 - 51.0 % 41.9 MCV 80.0 - 100.0 fL 86.7 MCH 26.0 - 34.0 pg 28.2 MCHC 30.5 - 36.0 g/dL 32.5 RDW-CV 11.5 - 15.0 % 14.1 Platelet Count 150 - 400 k/uL 331 MPV 9.0 - 12.7 fL 10.1 Neut% % 57.5 Abs Neut (ANC) 1.45 - 7.50 k/uL 4.47 Lymph% % 25.8 Abs Lymph 1.00 - 4.00 k/uL 2.01 [place]% % 12.3 Abs [place] <0.87 k/uL 0.96 (H) Eosin% % 3.2 Abs Eosin <0.46 k/uL 0.25 Baso% % 0.9 Abs Baso <0.11 k/uL 0.07 Immature Gran % % 0.3 IMMATURE GRANS (ABS) <0.10 k/uL <0.03 NRBC /100 WBC 0.0 Absolute nRBC <0.01 k/uL <0.01 DTYPE Auto Protein, Total 6.3 - 8.0 g/dL 7.4 Albumin 3.9 - 4.9 g/dL 4.5 Calcium 8.5 - 10.2 mg/dL 9.6 Bilirubin, Total 0.2 - 1.3 mg/dL 0.3 Alkaline Phosphatase 38 - 113 U/L 90 AST 14 - 40 U/L 24 ALT 10 - 54 U/L 26 Glucose 74 - 99 mg/dL 83 BUN 9 - 24 mg/dL 17 Creatinine 0.73 - 1.22 mg/dL 0.83 Sodium 136 - 144 mmol/L 137 Potassium 3.7 - 5.1 mmol/L 4.4 Chloride 97 - 105 mmol/L 99 CO2 22 - 30 mmol/L 26 Anion Gap 9 - 18 mmol/L 12 eGFR >=60 mL/min/1.73m 100 Cholesterol, Total <200 mg/dL 175 Triglyceride <150 mg/dL 253 (H) HDL Cholesterol >39 mg/dL 42 Non HDL Cholesterol <130 mg/dL 133 (H) Fasting Time hrs 9 VLDL Cholesterol <30 mg/dL 51 (H) TC:HDL Ratio <5.10 4.17 LDL Cholesterol <100 mg/dL 82 LDL:HDL Ratio <2.54 1.95 Hemoglobin A1C 4.3 - 5.6 % 5.8 (H) Estimated Average Glucose mg/dL 120 MEDICATIONS: Current Outpatient Medications Medication Sig atorvastatin (LIPITOR) 20 mg tablet Take 1 tablet by mouth once daily. LORazepam (ATIVAN) 0.5 mg Take 1 tablet by mouth three times daily as needed (anxiety) for up to 90days. peg 3350-Electrolytes (GOLYTELY) 236-22.74-6.74 -5.86 gram suspension Refer to printed prep instructions from your provider. benazepril (LOTENSIN) 20 mg tablet Take 1 tablet by mouth once daily. calcium carbonate (TUMS ORAL) Take 2 tablets by mouth as needed. hydroCHLOROthiazide (HYDRODIURIL, ESIDRIX) 12.5 mg tablet Take 12.5 mg by mouth once daily. XARELTO 20 mg tablet Take 1 tablet by mouth once daily. melatonin 3 mg capsules Take 3 mg by mouth at bedtime as needed. potassium chloride (K-TAB) 10 mEq tablet Take 10 mEq by mouth once daily. diltiazem CD (CARDIZEM CD, CARTIA XT) 240 mg 24 hr capsule Take 1 capsule by mouth once daily. metoprolol tartrate, short acting, (LOPRESSOR) 100 mg tablet Take 100 mg by mouth twice daily. loratadine (CLARITIN) 10 mg tablet Take 10 mg by mouth once daily. No current facility-administered medications for this visit. ALLERGIES: ALLERGIES Allergen Reactions Vicodin [Hydrocodon* Mental Status Change PAST MEDICAL HISTORY Diagnosis Date Anticoagulant long-term use Arrhythmia At risk for stroke [id number] = 1 (HTN) Essential hypertension Essential hypertension Generalized anxiety disorder Hemorrhage of gastrointestinal tract, unspecified Hemorrhoids Paroxysmal atrial fibrillation (HCC) Rectal bleeding 09/2021 Sleep apnea does not use cpap. Snoring PAST SURGICAL HISTORY Procedure Laterality Date COLONOSCOPY FLX DX W/COLLJ SPEC WHEN PFRMD 07/11/2008 Colonoscopy COLONOSCOPY FLX DX W/COLLJ SPEC WHEN PFRMD 05/26/2018 Colonoscopy ESOPHAGOGASTRODUODENOSCOPY TRANSORAL DIAGNOSTIC 05/26/2018 EGD HEMORRHOID: RUBBERBAND, SINGLE/MULTIPLE 10/04/2021 HEMORRHOIDECTOMY INTERNAL RUBBER BAND LIGATIONS 05/26/2018 FAMILY HISTORY Problem Relation Age of Onset Heart Mother Valve Replacement COPD Mother other (history of smoking) Mother Hypertension Father Kidney failure Father kidney disease - on dialysis Heart disease Father heart valve problem Hypertension Sister Hyperlipidemia Sister other (sudden ) Brother other (sudden infant ) Brother Thyroid Son Prostate Cancer No Family History none Social History Tobacco Use Smoking status: Never Smokeless tobacco: Never Vaping Use Vaping Use: Never used Substance Use Topics Alcohol use: Yes Comment: very occasional Drug use: No Reviewed current medications, allergies, past medical history, surgical history, family history andsocial history today. REVIEW OF SYSTEMS Still has mild rectal bleeding but getting hemorrhoidal banding soon. All other reviewed and negative other than HPI. HEALTH MAINTENANCE: Reviewed health maintenance issues today and recommended the following in detail. SHINGRIX VACCINE(1 of 2) Never done DEPRESSION ASSESSMENT Never done COVID-19 VACCINE(4 - Booster for Pfizer series) due on 08/01/2021 INFLUENZA-recommended. Discussed tdap VITALS: BP 144/96 Pulse 60 Ht 180.3 cm (5' 11") Wt 101.9 kg (224 lb 9.6 oz) SpO2 97% BMI 31.33 kg/m Last 4 Encounter Wt Readings: Date: Wt: 03/29/2022 101.9 kg (224 lb 9.6 oz) 01/17/2022 99.2 kg (218 lb 12.8 oz) 01/14/2022 99.8 kg (220 lb) 12/25/2021 98.4 kg (217 lb) PHYSICAL EXAMINATION: General appearance: Well appearing, alert, in no acute distress, well-hydrated, well nourished. Skin: Skin color, texture, turgor normal, no suspicious rashes or lesions Head: Normocephalic, no masses, lesions, tenderness or abnormalities Neck: Supple, no adenopathy; thyroid symmetric, normal size, no bruits Lungs: Lungs clear to auscultation. No wheezing, rhonchi, rales Heart: RRR without murmur, gallop, or rubs. No ectopy Abdomen: Normal abdominal exam, Abdomen soft, non-tender. Bowel sounds normal. No masses, organomegaly Extremities: No deformities, edema, skin discoloration, clubbing or cyanosis. Good capillary refill. Musculoskeletal: No joint swelling, deformity, or tenderness Peripheral pulses: Normal Neuro: Negative. ASSESSMENT/PLAN: 1. Essential hypertension - ICD9: 401.9, ICD10: I10 (primary diagnosis) - suboptimal control - Continue current medication(s) - Goal of BP <130/80 2. Mixed hyperlipidemia - ICD9: 272.2, ICD10: E78.2 - good control - Continue current medication. 3. Paroxysmal atrial fibrillation (HCC) - ICD9: 427.31, ICD10: I48.0 - stable. 4. Pure hypercholesterolemia, unspecified - ICD9: 272.0, ICD10: E78.00 Stable. 5. Unspecified sleep apnea - ICD9: 780.57, ICD10: G47.30 - per pulmonary 6. Hyperglycemia - ICD9: 790.29, ICD10: R73.9 - HGB A1C 7. Generalized anxiety disorder - ICD9: 300.02, ICD10: F41.1 8. Anticoagulant long-term use - ICD9: V58.61, ICD10: Z79.01 - CBC Alan Ward MD [facility] [place] Miscellaneous Notes* Telephone Encounter - Lauren Beck MA - 02/04/2022 8:31 AM EDT Patient has been identified by name and date of : Yes Requested Prescriptions Pending Prescriptions Disp Refills LORazepam (ATIVAN) 0.5 mg 90 tablet 0 Sig: Take 1 tablet by mouth three times daily as needed (anxiety) for up to 90 days. RX INSTRUCTIONS: Patient aware RX will be sent to pharmacy. No need to notify patient. Lauren Beck MA Valdemar: 09/2021 Nov: 03/2022 Last refill; 10/2021 [facility] [place] History of Present illness Narrative* Randy Goyal MD - 01/17/2022 6:36 PM EDT HISTORY AND PHYSICAL Andrea Piedra 1960 REFERRING PHYSICIAN: Alan Ward MD CHIEF COMPLAINT: Consult (abdominal pain) HPI: The patient is a 61 year old male referred for abdominal pain. The patient noted right and left lower quadrant abdominal discomfort and a feeling of fullness. He also notes upper abdominal bloating. This does not necessarily be related to eating food. He denies change in his bowel habits. He notes no blood in his stools or black tarry stools. He is currently caring for a very young grandson and this has been very stressful. Given these abdominal symptoms and the fact that they were getting worse, along with the fact that he had a 3-day history of diarrhea with worsening abdominal cramping he presented to the emergency department. He underwent a CT scan of the abdomen pelvis which demonstrated a small left inguinal hernia versus a left inguinal cord lipoma. There was no bowel component to this. There were no other specific abnormalities noted on the CT scan. He was noted to have mildly elevated liver enzymes. His weight has increased recently. There was a question of a mildly dilated left ureter. There was a question of whether he had recently passed a kidney stone. He denied any hematuria or dysuria symptoms. Patient was seen by urology who felt that this was a nonspecific finding. Given the above findings, the patient was seen by Dr. Ward and referred to me for evaluation. PAST MEDICAL HISTORY Diagnosis Date Anticoagulant long-term use Arrhythmia At risk for stroke [id number] = 1 (HTN) Essential hypertension Essential hypertension Generalized anxiety disorder Hemorrhage of gastrointestinal tract, unspecified Hemorrhoids Paroxysmal atrial fibrillation (HCC) Rectal bleeding 09/2021 Sleep apnea does not use cpap. Snoring PAST SURGICAL HISTORY Procedure Laterality Date COLONOSCOPY FLX DX W/COLLJ SPEC WHEN PFRMD 07/11/2008 Colonoscopy COLONOSCOPY FLX DX W/COLLJ SPEC WHEN PFRMD 05/26/2018 Colonoscopy ESOPHAGOGASTRODUODENOSCOPY TRANSORAL DIAGNOSTIC 05/26/2018 EGD HEMORRHOID: RUBBERBAND, SINGLE/MULTIPLE 10/04/2021 HEMORRHOIDECTOMY INTERNAL RUBBER BAND LIGATIONS 05/26/2018 Current Outpatient Medications Medication Sig benazepril (LOTENSIN) 20 mg tablet Take 1 tablet by mouth once daily. LORazepam (ATIVAN) 0.5 mg Take 1 tablet by mouth three times daily as needed (anxiety) for up to 90days. calcium carbonate (TUMS ORAL) Take 2 tablets by mouth as needed. hydroCHLOROthiazide (HYDRODIURIL, ESIDRIX) 12.5 mg tablet Take 12.5 mg by mouth once daily. atorvastatin (LIPITOR) 20 mg tablet Take 1 tablet by mouth once daily. XARELTO 20 mg tablet Take 1 tablet by mouth once daily. melatonin 3 mg capsules Take 3 mg by mouth at bedtime as needed. potassium chloride (K-TAB) 10 mEq tablet Take 10 mEq by mouth once daily. diltiazem CD (CARDIZEM CD, CARTIA XT) 240 mg 24 hr capsule Take 1 capsule by mouth once daily. metoprolol tartrate, short acting, (LOPRESSOR) 100 mg tablet Take 100 mg by mouth twice daily. loratadine (CLARITIN) 10 mg tablet Take 10 mg by mouth once daily. peg 3350-Electrolytes (GOLYTELY) 236-22.74-6.74 -5.86 gram suspension Refer to printed prep instructions from your provider. tamsulosin (FLOMAX) 0.4 mg Take 1 capsule by mouth daily at bedtime. (Patient not taking: Reported on 01/17/2022 ) No current facility-administered medications for this visit. ALLERGIES: Vicodin [Hydrocodone-Acetaminophen] PERSONAL HISTORY: Social History Tobacco Use Smoking status: Never Smoker Smokeless tobacco: Never Used Vaping Use Vaping Use: Never used Substance Use Topics Alcohol use: Yes Comment: very occasional Drug use: No FAMILY HISTORY: FAMILY HISTORY Problem Relation Age of Onset Heart Mother Valve Replacement COPD Mother other (history of smoking) Mother Hypertension Father Kidney failure Father kidney disease - on dialysis Heart disease Father heart valve problem Hypertension Sister Hyperlipidemia Sister other (sudden infant ) Brother other (sudden ) Brother Thyroid Son Prostate Cancer No Family History none REVIEW OF SYMPTOMS: The review of systems data was entered by the nurse and reviewed by tn Nursing Notes: Teresita Bernstein LPN 01/17/2022 10:50 AM Signed REVIEW OF SYSTEMS: General: The patient denies fatigue, denies weight loss, denies weight gain, denies feeling hot, and denies feelings of cold. Eyes: The patient denies glaucoma, notes eye injury/surgery, wears glasses or contacts. Ear/Nose/Throat: The patient notes allergies, notes hayfever, denies ear infections, and denies bloody noses. Cardiovascular: The patient denies chest pain, denies heart disease, notes high blood pressure,denies cardiac stent, denies prior heart attack, notes irregular heart beat, denies high cholesterol, denies poor circulation, denies heart failure, other cardiac issues, denies claudication, denies cold feet, denies peripheral arterial stent. Respiratory: The patient denies tuberculosis, denies pneumonia, denies frequent cough, denies pulmonary embolism, denies shortness of breath, and denies coughing up blood. Gastrointestinal: The patient denies difficulty swallowing, denies acid reflux, denies ulcers, denies vomiting, denies jaundice/hepatitis, denies gallbladder problems, denies black or tarry stools, notes hemorrhoids, notes bleeding from rectum, denies diverticulitis, denies constipation, denies diarrhea, denies loss of stool control, and denies hernias. Kidney/Bladder: The patient denies kidney stones, denies urine infections, and denies bloody urine. Skin: The patient denies a history of skin cancer, denies bleeding/changing moles, and denies a history of skin rash. Neurologic: The patient denies a history of epilepsy/convulsions, denies headaches, denies head/spinal injuries, and denies stroke/TIA. Psychiatric: The patient denies psychiatric medications, denies depression, and denies voices, denies substance abuse. Endocrine: The patient denies thyroid disorders, denies diabetes, and denies hormonal problems. Hematologic: The patient denies a history of bruising, denies bleeding, and denies anemia, denies blood clots. Infections: The patient notes a history of measles and mumps, denies rheumatic fever, and denies sexually transmitted diseases. Musculoskeletal: The patient denies back pain/injury, denies back problems, denies sciatica, deniesknee/foot trouble, denies arthritis, or denies gout. When was patient's last Mammogram screening? N/A Last Colonoscopy: 2017 Teresita Bernstein LPN PHYSICAL EXAMINATION: General: The patient is 61 year old male, well nourished, well hydrated in no acute distress. The patient is oriented to time, place, and person. VITALS: Blood pressure 147/84, pulse 63, temperature 36.7 C (98 F), height 180.3 cm (5' 11"), weight 99.2 kg (218 lb 12.8 oz), SpO2 99 %. Body mass index is 30.52 kg/m . HEENT: Normal cephalic, ataumatic, pupils are equally round, sclera are anicteric, mucous membranesare moist, oropharynx is clear. Neck has no masses, asymmetry or lymphadenopathy. Thyroid is unremarkable. Respiratory: Clear to auscultation and percussion. Normal respiratory excursion and pattern. Cardiac: Examination is regular rate and rhythm. Abdominal exam: Soft, mild diffuse upper abdominal midline tenderness, no true lower abdominal tenderness, with no palpable masses. No hepatosplenomegaly. Questionable small left inguinal hernia, no obvious right inguinal hernia, no tenderness with coughing or on palpation of the site of the hernia. Rectal exam: exam deferred Extremities: no clubbing, cyanosis or edema. No adenopathy. Other: LABORATORY VALUES: As Noted RADIOLOGIC STUDIES: As Noted Assessment IMPRESSION: Abdominal bloating, lower abdominal discomfort and upper abdominal discomfort source question, likely small left inguinal hernia-asymptomatic PLAN: I plan to perform upper and lower endoscopy. We discussed the risks and benefits of the planned endoscopy. I have informed the patient that complications can occur including failure to completethe endoscopy and perforation. The patient had the opportunity to ask questions concerning the planned endoscopy. My staff has also explained the procedure to the patient in understandable terms and has given the patient printed material concerning the procedure. The patient freely consents to surgery. I plan to use golytely bowel preparation for endoscopy. He will pay attention the left inguinal region to see if he notes discomfort related to lifting or other events that would exacerbate the possible hernia. Diagnoses: (R10.9) Abdominal discomfort (K40.90) Unilateral inguinal hernia without obstruction or gangrene, recurrence not specified My findings have been communicated to Dr. Alan Ward MD via shared medical record. This note will be forwarded to Dr. Alan Ward MD. Return to Clinic: The patient is instructed to follow-up with me after the testing has been completed. Randy Goyal MD documented in this encounterSelect [facility] [place] Nurse Note* Teresita Bernstein, HOME ENERGY RATER - 01/17/2022 10:49 AM EDT REVIEW OF SYSTEMS: General: The patient denies fatigue, denies weight loss, denies weight gain, denies feeling hot, and denies feelings of cold. Eyes: The patient denies glaucoma, notes eye injury/surgery, wears glasses or contacts. Ear/Nose/Throat: The patient notes allergies, notes hayfever, denies ear infections, and denies bloody noses. Cardiovascular: The patient denies chest pain, denies heart disease, notes high blood pressure,denies cardiac stent, denies prior heart attack, notes irregular heart beat, denies high cholesterol, denies poor circulation, denies heart failure, other cardiac issues, denies claudication, denies cold feet, denies peripheral arterial stent. Respiratory: The patient denies tuberculosis, denies pneumonia, denies frequent cough, denies pulmonary embolism, denies shortness of breath, and denies coughing up blood. Gastrointestinal: The patient denies difficulty swallowing, denies acid reflux, denies ulcers, denies vomiting, denies jaundice/hepatitis, denies gallbladder problems, denies black or tarry stools, notes hemorrhoids, notes bleeding from rectum, denies diverticulitis, denies constipation, denies diarrhea, denies loss of stool control, and denies hernias. Kidney/Bladder: The patient denies kidney stones, denies urine infections, and denies bloody urine. Skin: The patient denies a history of skin cancer, denies bleeding/changing moles, and denies a history of skin rash. Neurologic: The patient denies a history of epilepsy/convulsions, denies headaches, denies head/spinal injuries, and denies stroke/TIA. Psychiatric: The patient denies psychiatric medications, denies depression, and denies voices, denies substance abuse. Endocrine: The patient denies thyroid disorders, denies diabetes, and denies hormonal problems. Hematologic: The patient denies a history of bruising, denies bleeding, and denies anemia, denies blood clots. Infections: The patient notes a history of measles and mumps, denies rheumatic fever, and denies sexually transmitted diseases. Musculoskeletal: The patient denies back pain/injury, denies back problems, denies sciatica, deniesknee/foot trouble, denies arthritis, or denies gout. When was patient's last Mammogram screening? N/A Last Colonoscopy: 2017 Teresita Bernstein LPN documented in this encounterSelect [facility] [place]28-2022 Instructions* Patient Instructions* Randy Goyal MD - 01/17/2022 10:32 AM EDT Images from the original note were not included. Bowel Preparation Instructions for: Golytely, Nulytely, Trilyte or Colyte (polyethylene glycol 3350and electrolytes) IF YOU DO NOT FOLLOW THESE DIRECTIONS, YOUR COLONOSCOPY WILL BE CANCELLED. [place] Instructions: Your bowel must be empty so that your doctor can clearly view your colon. Follow all of the instructions in this handout EXACTLY as they are written. Do NOT eat any solid food the ENTIRE day before your colonoscopy. Drink only clear liquids. Buy your bowel preparation at least 5 days before your colonoscopy. TRANSPORTATION on the Day of Your Exam A responsible person MUST be present with you at Check In prior to your colonoscopy and REMAIN in the endoscopy area until you are discharged. You are NOT ALLOWED to drive, take a taxi or bus, or leave the Endoscopy Center ALONE. If you do not have a responsible pick up driver (family member or friend) with you to take you home, your exam cannot be done with sedation and will be cancelled. Please bring a list of all of your current medications, including any Over-the Counter medications with you. Medications If you take insulin, diabetic medications or blood thinners such as Coumadin (warfarin), Plavix (clopidogrel), Ticlid (ticlopidine hydrochloride), Agrylin (anagrelide), Xarelto (Rivaroxaban), Pradaxa(Dabigatran), Eliquis (Apixaban), and Effient (Prasugrel). You MUST call the doctors who orders those medicines for instructions on altering the dosage before your colonoscopy. All other medications should be taken the day of the exam with a sip of water including ASPIRIN. Five (5) Days Before Your Colonoscopy Do NOT take medicines that stop diarrhea - such as Imodium, Kaopectate, or Pepto Bismol. Do NOT take fiber supplements - such as Metamucil, Citrucel, or Perdiem. Do NOT take products that contain iron - such as multi-vitamins (the label lists what is in the products). Do NOT take Vitamin E. Buy the prescription bowel preparation solution at your local pharmacy or drugstore pharmacy. 1 05/2019 Bowel Preparation Instructions for: Golytely, Nulytely, Trilyte or Colyte (polyethylene glycol 3350and electrolytes) Three (3) Days Before Your Colonoscopy Do NOT eat high-fiber foods - such as popcorn, beans, seeds (flax, sunflower, quinoa), multigrain bread, nuts, salad/vegetables, or fresh and dried fruit. One (1) Day Before Your Colonoscopy Only drink clear liquids the ENTIRE DAY before your colonoscopy. Do NOT eat any solid foods. Drink at least 8 ounces of clear liquids every hour after waking up. The clear liquids you can drink include: Clear Liquid (NO RED LIQUIDS) DO NOT DRINK Gatorade, Pedialyte or Powerade Clear broth or bouillon Coffee or tea (no milk or non-dairy creamer) Carbonated and non-carbonated soft drinks Nick-Aid or other fruit flavored drinks Strained fruit juices (no pulp) Jell-O, popsicles, hard candy Water Alcohol Milk or non-dairy creamers Noodles or vegetables in soup Juice with pulp Liquid you cannot see through The bowel preparation solution will be consumed in two parts. Mix the solution the evening before your colonoscopy and refrigerate before drinking. You may add the flavor pack that came with the bowel preparation. Do NOT add ice, sugar or any other flavorings to the solution. Part 1 At 6:00 PM - Evening before your colonoscopy Drink an 8-oz glass of bowel preparation every 10 minutes until clear You may continue to drink clear liquids until midnight. 2 05/2019 documented in this encounterSelect [facility] [place]-25-[facility]22 History of Present illness Narrative* Alan Ward MD - 01/14/2022 5:37 PM EDT Patient presents with: Follow Up HPI: Patient presents today for office visit for follow up. Saw urol. Recommended having gen surgery see regarding hernia. andrew saw for left mild hydroureter. Repeat liver enzymes were improving. Asked him to recheck those in six weeks. Was offered by myself to see surgery at last ov. Asked to return today for recheck. No groin swelling. Still having some fullness and discomfort in the abdomen. No urinary issues. He feels as if he is moving his bowels well. Still feels bloated and uncomfortable. Last colonoscopy in 2018. Still has a large amount of stress in caring for his grandson. Overall stress is still improving. Still feels he is managing well with it. See previous ov: Was scheduled for ct exam here for work up of chronic abd discomfort but was sent to ER at [facility] for an acute illness that started three days before. Had ct in the er that questionably showed a mildly dilated left ureter. ?? Recently passed stone. No definite dysuria, hematuria. Had recently had uri symptoms. Had chills Then got diarrhea and three day hx of abd cramping. and had dark urine. Was different from his normal chronic abd discomfort. The Er did not mention to him that his liver enzymes were elevated. ALT of 143, AST of 94 and alk phos of 177. covid was negative in ER. Urine was negative as well. Currently diarrhea is better. No fever. mild cough. Has mild congestion in the nose No more cramping in the stomach. No yellowing to the skin. No more dark urine. Did have a sore throat around father's day but no swollen glands or current issues, No mono exposure. Also has a small left inguinal hernia that is asymptomatic. Just had colonoscopy in 2018. No previous hx of kidne stones. MEDICATIONS: Current Outpatient Medications Medication Sig tamsulosin (FLOMAX) 0.4 mg Take 1 capsule by mouth daily at bedtime. benazepril (LOTENSIN) 20 mg tablet Take 1 tablet by mouth once daily. LORazepam (ATIVAN) 0.5 mg Take 1 tablet by mouth three times daily as needed (anxiety) for up to 90days. calcium carbonate (TUMS ORAL) Take 2 tablets by mouth as needed. hydroCHLOROthiazide (HYDRODIURIL, ESIDRIX) 12.5 mg tablet Take 12.5 mg by mouth once daily. atorvastatin (LIPITOR) 20 mg tablet Take 1 tablet by mouth once daily. XARELTO 20 mg tablet Take 1 tablet by mouth once daily. melatonin 3 mg capsules Take 3 mg by mouth at bedtime as needed. potassium chloride (K-TAB) 10 mEq tablet Take 10 mEq by mouth once daily. diltiazem CD (CARDIZEM CD, CARTIA XT) 240 mg 24 hr capsule Take 1 capsule by mouth once daily. metoprolol tartrate, short acting, (LOPRESSOR) 100 mg tablet Take 100 mg by mouth twice daily. loratadine (CLARITIN) 10 mg tablet Take 10 mg by mouth once daily. No current facility-administered medications for this visit. ALLERGIES: ALLERGIES Allergen Reactions Vicodin [Hydrocodon* Mental Status Change PAST MEDICAL HISTORY Diagnosis Date Anticoagulant long-term use Arrhythmia At risk for stroke [id number] = 1 (HTN) Essential hypertension Essential hypertension Generalized anxiety disorder Hemorrhage of gastrointestinal tract, unspecified Hemorrhoids Paroxysmal atrial fibrillation (HCC) Rectal bleeding 09/2021 Sleep apnea does not use cpap. Snoring PAST SURGICAL HISTORY Procedure Laterality Date COLONOSCOPY FLX DX W/COLLJ SPEC WHEN PFRMD 07/11/2008 Colonoscopy COLONOSCOPY FLX DX W/COLLJ SPEC WHEN PFRMD 05/26/2018 Colonoscopy ESOPHAGOGASTRODUODENOSCOPY TRANSORAL DIAGNOSTIC 05/26/2018 EGD HEMORRHOID: RUBBERBAND, SINGLE/MULTIPLE 10/04/2021 HEMORRHOIDECTOMY INTERNAL RUBBER BAND LIGATIONS 05/26/2018 FAMILY HISTORY Problem Relation Age of Onset Heart Mother Valve Replacement COPD Mother other (history of smoking) Mother Hypertension Father Kidney failure Father kidney disease - on dialysis Heart disease Father heart valve problem Hypertension Sister Hyperlipidemia Sister other (sudden infant ) Brother other (sudden ) Brother Thyroid Son Prostate Cancer No Family History none Social History Tobacco Use Smoking status: Never Smoker Smokeless tobacco: Never Used Vaping Use Vaping Use: Never used Substance Use Topics Alcohol use: Yes Comment: very occasional Drug use: No Reviewed current medications, allergies, past medical history, surgical history, family history andsocial history today. HEALTH MAINTENANCE: VITALS: BP 138/82 Pulse 72 Wt 99.8 kg (220 lb) BMI 30.68 kg/m Last 4 Encounter Wt Readings: Date: Wt: 01/14/2022 99.8 kg (220 lb) 12/25/2021 98.4 kg (217 lb) 12/20/2021 99.3 kg (219 lb) 12/03/2021 101.2 kg (223 lb) PHYSICAL EXAMINATION: General appearance: Well appearing, alert, in no acute distress, well-hydrated, well nourished. Skin: Skin color, texture, turgor normal, no suspicious rashes or lesions Head: Normocephalic, no masses, lesions, tenderness or abnormalities Lungs: Lungs clear to auscultation. No wheezing, rhonchi, rales Heart: RRR without murmur, gallop, or rubs. No ectopy Abdomen: Normal abdominal exam, Abdomen soft, non-tender. Bowel sounds normal. No masses, organomegaly Extremities: No deformities, edema, skin discoloration, clubbing or cyanosis. Good capillary refill. Musculoskeletal: No joint swelling, deformity, or tenderness ASSESSMENT/PLAN: 1. Abdominal discomfort - ICD9: 789.00, ICD10: R10.9 (primary diagnosis) - recheck with surgery. Call if worsens. - CONSULT TO GENERAL SURGERY 2. Elevated liver enzymes - ICD9: 790.5, ICD10: R74.8 - recheck next month as ordered. Improving. 3. Unilateral inguinal hernia without obstruction or gangrene, recurrence not specified - ICD9: 550.90, ICD10: K40.90 - CONSULT TO GENERAL SURGERY 4. Paroxysmal atrial fibrillation (HCC) - ICD9: 427.31, ICD10: I48.0 - per cardiology Alan Ward RTO in three months and prn. documented in this encounterSelect Medical [facility] [place]07-18-2022 Miscellaneous Notes* Telephone Encounter - Natalie Partida RN - 01/07/2022 1:47 PM EDT Patient calls asking about lab results done last week. Patient notified of results and provider instructions: Your liver enzymes are improving. We just looked at your liver on ct scan a few weeks ago so is likely ok. Lets recheck your liver lab work in six weeks. Dr Mehta Patient voiced understanding. Natalie Partida RN documented in this encounterSelect Medical [facility] [place]07-05-2022 History of Present illness Narrative* Jose Galvan PA-C - 12/25/2021 5:11 PM EDT Images from the original note were not included. 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 LORazepam (ATIVAN) 0.5 mg Take 1 tablet by mouth three times daily as needed (anxiety) for up to 90days. calcium carbonate (TUMS ORAL) Take 2 tablets by mouth as needed. hydroCHLOROthiazide (HYDRODIURIL, ESIDRIX) 12.5 mg tablet Take 12.5 mg by mouth once daily. atorvastatin (LIPITOR) 20 mg tablet Take 1 tablet by mouth once daily. XARELTO 20 mg tablet Take 1 tablet by mouth once daily. melatonin 3 mg capsules Take 3 mg by mouth at bedtime as needed. potassium chloride (K-TAB) 10 mEq tablet Take 10 mEq by mouth once daily. diltiazem CD (CARDIZEM CD, CARTIA XT) 240 mg 24 hr capsule Take 1 capsule by mouth once daily. metoprolol tartrate, short acting, (LOPRESSOR) 100 mg tablet Take 100 mg by mouth twice daily. loratadine (CLARITIN) 10 mg tablet Take 10 mg by mouth once daily. polyethylene glycol 3350 (MIRALAX) 17 gram/dose powder Take 17 g by mouth once daily. hydrocortisone (ANUSOL-HC) 2.5 % rectal cream by RECTAL route twice daily. albuterol HFA (PROAIR HFA) 90 mcg/actuation inhaler Inhale 2 Puffs as instructed every 6 hours as needed. PAST MEDICAL HISTORY: PAST MEDICAL HISTORY Diagnosis Date Anticoagulant long-term use Arrhythmia At risk for stroke [id number] = 1 (HTN) Essential hypertension Essential hypertension Generalized anxiety disorder Hemorrhage of gastrointestinal tract, unspecified Hemorrhoids Paroxysmal atrial fibrillation (HCC) Rectal bleeding 09/2021 Sleep apnea does not use cpap. Snoring PAST SURGICAL HISTORY: PAST SURGICAL HISTORY Procedure Laterality Date COLONOSCOPY FLX DX W/COLLJ SPEC WHEN PFRMD 07/11/2008 Colonoscopy COLONOSCOPY FLX DX W/COLLJ SPEC WHEN PFRMD 05/26/2018 Colonoscopy ESOPHAGOGASTRODUODENOSCOPY TRANSORAL DIAGNOSTIC 05/26/2018 EGD HEMORRHOID: RUBBERBAND, SINGLE/MULTIPLE 10/04/2021 HEMORRHOIDECTOMY INTERNAL RUBBER BAND LIGATIONS 05/26/2018 FAMILY HISTORY: FAMILY HISTORY Problem Relation Age of Onset Heart Mother Valve Replacement COPD Mother other (history of smoking) Mother Hypertension Father Kidney failure Father kidney disease - on dialysis Heart disease Father heart valve problem Hypertension Sister Hyperlipidemia Sister other (sudden ) Brother other (sudden ) Brother Thyroid Son Prostate Cancer No Family History none SOCIAL HISTORY: Social Connections: Not on file REVIEW OF SYSTEMS: GENERAL: No fever, chills, weight loss, or fatigue. ENMT: Negative CARDIOVASCULAR:NO CHEST PAIN, PALPITATIONS, ANKLE EDEMA RESPIRATORY: No chronic cough, wheezing, dyspnea, hemoptysis. GENITOURINARY: SEE HPI MUSCULOSKELETAL:NO CHRONIC BACK PAIN, ARTHRITIS, CHRONIC NECK PAIN SKIN: NO VARICOSE VEINS, RASH, ABNORMAL ITCHING HEME/LYMPH/IMMUNE:Negative for prolonged bleeding, bruising easily or swollen nodes NEUROLOGICAL: NO HEADACHES, NUMBNESS, SEIZURES, STROKE DIABETES: Yes, All other systems reviewed and are negative PHYSICAL EXAMINATION: Blood pressure 138/84, pulse 68, temperature 36.5 C (97.7 F), temperature source Temporal, resp. rate 14, height 180.3 cm (5' 11"), weight 98.4 kg (217 lb), SpO2 99 %. GENERAL: WNL nutrition, no deformities, healthy appearing NEURO: Awake, alert and oriented x 3 and Normal gait PSYCH: No signs of depression, anxiety, or agitation ENMT (Ear, Nose, Mouth, Throat): No masses, adenopathy, icterus. Thyroid nonpalpable RESP: NL effort, no retractions or purse-lip breathing. CV: No extremity swelling, varices, edema, pallor, erythema GASTROINTESTINAL: Soft, nontender, nondistended, no masses. HERNIAS: None SKIN: No rash, lesions No palpable lymphadenopathy MUSCULOSKELETAL: Extremities normal. No deformities, edema, clubbing or skin discoloration. PROBLEM LIST REVIEW: Yes LABS: Results for orders placed or performed in visit on 12/25/21 UA DIP, URINE (POC) Result Value Ref Range GLUCOSE UA (POCT) Negative Negative mg/dL BILIRUBIN UA (POCT) Negative Negative KETONE UA (POCT) Negative Negative mg/dL SPECIFIC GRAVITY UA (POCT) 1.015 1.005 - 1.030 HEMOGLOBIN/BLOOD UA (POCT) Negative Negative PH UA (POCT) 6.5 4.5 - 8.0 PROTEIN UA (POCT) Negative Negative mg/dL UROBILINOGEN UA (POCT) 0.2 Normal E.U./dL NITRITE UA (POCT) Negative Negative LEUKOCYTES UA (POCT) Negative Negative COLOR UA (POCT) Light yellow CLARITY UA (POCT) Clear PROCEDURES: PVR: 0 ml IMAGING: CT Urogram Left Renal Stone - tiny - Left mild hydroureter IMPRESSION/PLAN: 1. Enlarged ureter - age undetermined > Tiny renal stone Non-obstructing 2. Abdominal discomfort > Left inguinal hernia on Ct recommend having General surgery take a look I spent a total of 40 minutes on the date of the service which included preparing to see the patient, face to face patient care, completing clinical documentation, obtaining and/or reviewing separately obtained history, performing a medically appropriate examination, counseling and educating the pat ient/family/caregiver, ordering medications, tests, or procedures, and care coordination. ANU Charles, [place], JAYCEE * Rebeca Blank LPN - 12/25/2021 4:23 PM EDT CC Post Void Residual HPI: Andrea Piedra is a 61 year old male. The patient is here now for an appointment with Jose Galvan, [place], [place], PA-COV. Procedure: Explained procedure to patient and verbalizes understanding. Performed a PVR. Patient urinated and instructed to empty bladder as much as possible just prior to having PVR done using bladder ultrasound scanner. Results of scan: 0 mL The patient tolerated the procedure well. Plan: Appointment with Jose. documented in this encounterSelect [facility] [place]07-01-2022 Miscellaneous Notes* Telephone Encounter - Maribell Robertson LPN - 12/21/2021 9:22 AM EDT Patient notified. * Telephone Encounter - Alan Ward MD - 12/21/2021 7:55 AM EDT Liver is improving but is still up slightly. Could be related to recent viral illness. If worsening ruq pain or nausea or itching etc, let me know. Recheck labs in two weeks documented in this encounterSelect [facility] [place]-13-2022 History of Present illness Narrative* Alan Ward MD - 12/03/2021 6:34 PM EDT No chief complaint on file. HPI: Patient presents today for office visit for follow up. We had added miralax daily. Feels it may have helped some. Still happens if he gets stress. Is lower abdominal. Last colonoscopy in 2018 and was normal. No current new bleeding. Bowels are moving daily which is an improvement. No back pain Sometime is a burning discomfort. Declines further treatment of anxiety. Xray: Impression IMPRESSION: Nonobstructive bowel gas pattern with mild fecal retention. Reviewed xrays. Feels currently ok today. Comes and goes. Is maybe a little better. Still in lower abdomen. It may get a little worse after eating. Moving the bowels may help a little. Is worse when anxious Still having a lot of stress. Is maybe a little better. Did meet recently with sample checker and feels a little better. See previous visit last week: Having stressful issues at home. He may have to take custody of his grandson Parents involved in drugs and got into trouble. Sleeping well. No suicidal ideation. Can cry at times. Does not want any additional meds. Offered counseling. He is talking with his sample checker on Friday and will call if feels he needs more. Has a sensation in his lower abdomen. Feels like it is a "piece of tape stuck to you." discomfort started about three weeks. Not all the time. Often comes and goes. Can last a minute or two but can last longer Not really a pain. Worse with upset and stress. No current changes in the bowels. Just saw Dr Goyal. Had colonoscopy in 2018. No nausea or vomiting. No diarrhea or constipation. No dysuria, hematuria or frequency. No changes in his urine stream. No new nocturia. No rashes or new back pain. No fever or chills. Just had a hemorrhoid banded last month by Dr. Goyal. Still occasional bleeding. He declines prostate exam today. Did check it not long ago. Last bm was this am and seemed normal. MEDICATIONS: Current Outpatient Medications Medication Sig benazepril (LOTENSIN) 20 mg tablet Take 1 tablet by mouth once daily. polyethylene glycol 3350 (MIRALAX) 17 gram/dose powder Take 17 g by mouth once daily. LORazepam (ATIVAN) 0.5 mg Take 1 tablet by mouth three times daily as needed (anxiety) for up to 90days. hydrocortisone (ANUSOL-HC) 2.5 % rectal cream by RECTAL route twice daily. albuterol HFA (PROAIR HFA) 90 mcg/actuation inhaler Inhale 2 Puffs as instructed every 6 hours as needed. calcium carbonate (TUMS ORAL) Take 2 tablets by mouth as needed. hydroCHLOROthiazide (HYDRODIURIL, ESIDRIX) 12.5 mg tablet Take 12.5 mg by mouth once daily. atorvastatin (LIPITOR) 20 mg tablet Take 1 tablet by mouth once daily. XARELTO 20 mg tablet Take 1 tablet by mouth once daily. melatonin 3 mg capsules Take 3 mg by mouth at bedtime as needed. potassium chloride (K-TAB) 10 mEq tablet Take 10 mEq by mouth once daily. diltiazem CD (CARDIZEM CD, CARTIA XT) 240 mg 24 hr capsule Take 1 capsule by mouth once daily. metoprolol tartrate, short acting, (LOPRESSOR) 100 mg tablet Take 100 mg by mouth twice daily. loratadine (CLARITIN) 10 mg tablet Take 10 mg by mouth once daily. No current facility-administered medications for this visit. ALLERGIES: ALLERGIES Allergen Reactions Vicodin [Hydrocodon* Mental Status Change PAST MEDICAL HISTORY Diagnosis Date Anticoagulant long-term use Arrhythmia At risk for stroke [id number] = 1 (HTN) Essential hypertension Essential hypertension Generalized anxiety disorder Hemorrhage of gastrointestinal tract, unspecified Hemorrhoids Paroxysmal atrial fibrillation (HCC) Rectal bleeding 09/2021 Sleep apnea does not use cpap. Snoring PAST SURGICAL HISTORY Procedure Laterality Date COLONOSCOPY FLX DX W/COLLJ SPEC WHEN PFRMD 07/11/2008 Colonoscopy COLONOSCOPY FLX DX W/COLLJ SPEC WHEN PFRMD 05/26/2018 Colonoscopy ESOPHAGOGASTRODUODENOSCOPY TRANSORAL DIAGNOSTIC 05/26/2018 EGD HEMORRHOID: RUBBERBAND, SINGLE/MULTIPLE 10/04/2021 HEMORRHOIDECTOMY INTERNAL RUBBER BAND LIGATIONS 05/26/2018 FAMILY HISTORY Problem Relation Age of Onset Heart Mother Valve Replacement COPD Mother other (history of smoking) Mother Hypertension Father Kidney failure Father kidney disease - on dialysis Heart disease Father heart valve problem Hypertension Sister Hyperlipidemia Sister other (sudden infant ) Brother other (sudden ) Brother Thyroid Son Prostate Cancer No Family History none Social History Tobacco Use Smoking status: Never Smoker Smokeless tobacco: Never Used Vaping Use Vaping Use: Never used Substance Use Topics Alcohol use: Yes Comment: very occasional Drug use: No Reviewed current medications, allergies, past medical history, surgical history, family history andsocial history today. REVIEW OF SYSTEMS Offered psa. All other reviewed and negative other than HPI. Component Latest Ref Rng & Units 11/02/2021 WBC 3.70 - 11.00 k/uL 8.43 RBC 4.20 - 6.00 m/uL 4.79 Hemoglobin 13.0 - 17.0 g/dL 13.4 Hematocrit 39.0 - 51.0 % 41.8 MCV 80.0 - 100.0 fL 87.3 MCH 26.0 - 34.0 pg 28.0 MCHC 30.5 - 36.0 g/dL 32.1 RDW-CV 11.5 - 15.0 % 13.3 Platelet Count 150 - 400 k/uL 368 MPV 9.0 - 12.7 fL 10.1 Neut% % 62.3 Abs Neut (ANC) 1.45 - 7.50 k/uL 5.24 Lymph% % 24.8 Abs Lymph 1.00 - 4.00 k/uL 2.09 [place]% % 9.8 Abs [place] <0.87 k/uL 0.83 Eosin% % 2.1 Abs Eosin <0.46 k/uL 0.18 Baso% % 0.8 Abs Baso <0.11 k/uL 0.07 Immature Gran % % 0.2 IMMATURE GRANS (ABS) <0.10 k/uL <0.03 NRBC /100 WBC 0.0 Absolute nRBC <0.01 k/uL <0.01 DTYPE Auto GLUCOSE UA (POCT) Negative mg/dL Negative BILIRUBIN UA (POCT) Negative Negative KETONE UA (POCT) Negative mg/dL Negative SPECIFIC GRAVITY UA (POCT) 1.005 - 1.030 1.025 HEMOGLOBIN/BLOOD UA (POCT) Negative Negative PH UA (POCT) 4.5 - 8.0 7.0 PROTEIN UA (POCT) Negative mg/dL Negative UROBILINOGEN UA (POCT) Normal E.U./dL 0.2 NITRITE UA (POCT) Negative Negative LEUKOCYTES UA (POCT) Negative Negative COLOR UA (POCT) Yellow CLARITY UA (POCT) Clear Glucose 74 - 99 mg/dL 102 (H) BUN 9 - 24 mg/dL 15 Creatinine 0.73 - 1.22 mg/dL 0.94 Sodium 136 - 144 mmol/L 139 Potassium 3.7 - 5.1 mmol/L 4.2 Chloride 97 - 105 mmol/L 100 CO2 22 - 30 mmol/L 26 Anion Gap 9 - 18 mmol/L 13 Calcium 8.5 - 10.2 mg/dL 9.9 eGFR >=60 mL/min/1.73m 93 VITALS: BP 142/82 Pulse 80 Wt 101.2 kg (223 lb) BMI 31.10 kg/m Last 4 Encounter Wt Readings: Date: Wt: 11/09/2021 101.2 kg (223 lb) 11/02/2021 100.7 kg (222 lb) 10/18/2021 101.6 kg (224 lb) 10/04/2021 102.1 kg (225 lb) PHYSICAL EXAMINATION: General appearance: Well appearing, alert, in no acute distress, well-hydrated, well nourished. Skin: Skin color, texture, turgor normal, no suspicious rashes or lesions Head: Normocephalic, no masses, lesions, tenderness or abnormalities Lungs: Lungs clear to auscultation. No wheezing, rhonchi, rales Heart: RRR without murmur, gallop, or rubs. No ectopy Abdomen: Normal abdominal exam, Abdomen soft, non-tender. Bowel sounds normal. No masses, organomegaly ASSESSMENT/PLAN: 1. Abdominal discomfort in right lower quadrant - ICD9: 789.03, ICD10: R10.31 (primary diagnosis) - Xray as above. Continue miralax. Get ct scan. Consider repeat colonoscopy if continues. Declines psa for now - IV CONTRAST (RADIOLOGY PROCEDURE) - ENTERIC CONTRAST (RADIOLOGY PROCEDURE) - CT ABD/PEL W IVCON 2. Abdominal discomfort in left lower quadrant - ICD9: 789.04, ICD10: R10.32 - Red flags for re-assessment reviewed with patient in detail. - IV CONTRAST (RADIOLOGY PROCEDURE) - ENTERIC CONTRAST (RADIOLOGY PROCEDURE) - CT ABD/PEL W IVCON 3. Essential hypertension - ICD9: 401.9, ICD10: I10 - good control - Continue current medication(s) - Goal of BP <130/80 4. Anxiety - ICD9: 300.00, ICD10: F41.9 - declines. Alan Ward documented [facility] [place] Miscellaneous Notes* Telephone Encounter - Maribell Ailyn QUIGLEY - 11/12/2021 12:36 PM EDT Patient has been identified by name and date of : Yes Pending Prescriptions Disp Refills BENAZEPRIL 20 MG TABLET 90 tablet 1 Sig: Take 1 tablet by mouth once daily. SOPHIE: No RX INSTRUCTIONS: MyChart request. Maribell Robertson LPN documented in this encounterSelect [facility] [place] History of Present illness Narrative* Alan Ward MD - 11/02/2021 2:44 PM EDT Patient presents with: Abdominal Pain: burning bladder area HPI: Patient presents today for office visit for follow up. Having stressful issues at home. He may have to take custody of his grandson Parents involved in drugs and got into trouble. Sleeping well. No suicidal ideation. Can cry at times. Does not want any additional meds. Offered counseling. He is talking with his sample checker on Friday and will call if feels he needs more. Has a sensation in his lower abdomen. Feels like it is a "piece of tape stuck to you." discomfort started about three weeks. Not all the time. Often comes and goes. Can last a minute or two but can last longer Not really a pain. Worse with upset and stress. No current changes in the bowels. Just saw Dr Goyal. Had colonoscopy in 2018. No nausea or vomiting. No diarrhea or constipation. No dysuria, hematuria or frequency. No changes in his urine stream. No new nocturia. No rashes or new back pain. No fever or chills. Just had a hemorrhoid banded last month by Dr. Goyal. Still occasional bleeding. He declines prostate exam today. Did check it not long ago. Last bm was this am and seemed normal. MEDICATIONS: Current Outpatient Medications Medication Sig hydrocortisone (ANUSOL-HC) 2.5 % rectal cream by RECTAL route twice daily. albuterol HFA (PROAIR HFA) 90 mcg/actuation inhaler Inhale 2 Puffs as instructed every 6 hours as needed. fluticasone (FLONASE) 50 mcg/actuation nasal spray Use 2 Sprays in each nostril once daily. Rinse mouth after use. (Patient not taking: Reported on 09/26/2021 ) LORazepam (ATIVAN) 0.5 mg Take 1 tablet by mouth three times daily as needed (anxiety) for up to 90days. benazepril (LOTENSIN) 20 mg tablet Take 1 tablet by mouth once daily. calcium carbonate (TUMS ORAL) Take 2 tablets by mouth as needed. hydroCHLOROthiazide (HYDRODIURIL, ESIDRIX) 12.5 mg tablet Take 12.5 mg by mouth once daily. atorvastatin (LIPITOR) 20 mg tablet Take 1 tablet by mouth once daily. XARELTO 20 mg tablet Take 1 tablet by mouth once daily. melatonin 3 mg capsules Take 3 mg by mouth at bedtime as needed. potassium chloride (K-TAB) 10 mEq tablet Take 10 mEq by mouth once daily. diltiazem CD (CARDIZEM CD, CARTIA XT) 240 mg 24 hr capsule Take 1 capsule by mouth once daily. metoprolol tartrate, short acting, (LOPRESSOR) 100 mg tablet Take 100 mg by mouth twice daily. loratadine (CLARITIN) 10 mg tablet Take 10 mg by mouth once daily. No current facility-administered medications for this visit. ALLERGIES: ALLERGIES Allergen Reactions Vicodin [Hydrocodon* Mental Status Change PAST MEDICAL HISTORY Diagnosis Date Anticoagulant long-term use Arrhythmia At risk for stroke [id number] = 1 (HTN) Essential hypertension Essential hypertension Generalized anxiety disorder Hemorrhage of gastrointestinal tract, unspecified Hemorrhoids Paroxysmal atrial fibrillation (HCC) Rectal bleeding 09/2021 Sleep apnea does not use cpap. Snoring PAST SURGICAL HISTORY Procedure Laterality Date COLONOSCOPY FLX DX W/COLLJ SPEC WHEN PFRMD 07/11/2008 Colonoscopy COLONOSCOPY FLX DX W/COLLJ SPEC WHEN PFRMD 05/26/2018 Colonoscopy ESOPHAGOGASTRODUODENOSCOPY TRANSORAL DIAGNOSTIC 05/26/2018 EGD HEMORRHOID: RUBBERBAND, SINGLE/MULTIPLE 10/04/2021 HEMORRHOIDECTOMY INTERNAL RUBBER BAND LIGATIONS 05/26/2018 FAMILY HISTORY Problem Relation Age of Onset Heart Mother Valve Replacement COPD Mother other (history of smoking) Mother Hypertension Father Kidney failure Father kidney disease - on dialysis Heart disease Father heart valve problem Hypertension Sister Hyperlipidemia Sister other (sudden ) Brother other (sudden ) Brother Thyroid Son Prostate Cancer No Family History none Social History Tobacco Use Smoking status: Never Smoker Smokeless tobacco: Never Used Vaping Use Vaping Use: Never used Substance Use Topics Alcohol use: Yes Comment: very occasional Drug use: No Reviewed current medications, allergies, past medical history, surgical history, family history andsocial history today. REVIEW OF SYSTEMS All other reviewed and negative other than HPI. HEALTH MAINTENANCE: Reviewed health maintenance issues today and recommended the following in detail. VITALS: BP 132/82 Pulse 72 Wt 100.7 kg (222 lb) BMI 30.96 kg/m Last 4 Encounter Wt Readings: Date: Wt: 11/02/2021 100.7 kg (222 lb) 10/18/2021 101.6 kg (224 lb) 10/04/2021 102.1 kg (225 lb) 09/26/2021 102.5 kg (226 lb) PHYSICAL EXAMINATION: General appearance: Well appearing, alert, in no acute distress, well-hydrated, well nourished. Skin: Skin color, texture, turgor normal, no suspicious rashes or lesions Head: Normocephalic, no masses, lesions, tenderness or abnormalities Neck: Supple, no adenopathy Lungs: Lungs clear to auscultation. No wheezing, rhonchi, rales Heart: RRR without murmur, gallop, or rubs. No ectopy Abdomen: Normal abdominal exam, Abdomen soft, non-tender. Bowel sounds normal. No masses, organomegaly. No rebound or guarding. Exam is totally benign today. Extremities: No deformities, edema, skin discoloration, clubbing or cyanosis. Good capillary refill. Musculoskeletal: No joint swelling, deformity, or tenderness ASSESSMENT/PLAN: 1. Lower abdominal pain - ICD9: 789.09, ICD10: R10.30 - call if worsens at all. Work on stress reduction. Recheck one week. Nothing on exam to suggest need for kub etc. - UA DIP, URINE (POC) - CBC + DIFF - BASIC METABOLIC PNL - XR ABDOMEN 1V SUPINE Alan Ward RTO in one week documented in this encounterSelect [facility] [place]28-[facility] History of Present illness Narrative* Randy Goyal MD - 10/18/2021 3:11 PM EDT FOLLOW UP VISIT - HEMORRHOID BANDING NAME: Andrea Verma [facility] NO.: [id number] DATE OF SERVICE: October 18, 2021 : 1960 REFERRING PHYSICIAN: Alan Ward MD Andrea is a patient I am following for symptomatic internal hemorrhoids. The patient returns following hemorrhoidal banding 2 weeks previously. The patient initially noted no bleeding for approximately a week or so but now notes scant bleeding. He still notes some rectal burning. He has tried Preparation H which actually improves those symptoms. The patient states he gets anxious over any medical procedure and he is having other stress in his life currently he states that his perianal issues are at the point that they do not bother him he does not wish to have further banding or evaluation. VITALS: Blood pressure 162/89, pulse 74, temperature 37.2 C (98.9 F), height 180.3 cm (5' 11"), weight 101.6 kg (224 lb), SpO2 98 %. Body mass index is 31.24 kg/m . Patient declined examination today. Assessment IMPRESSION: Status post left lateral interal hemorrhoidal banding PLAN: As long as the patient's symptoms remain manageable I would just recommend he follow-up if needed.. Diagnoses: (K62.5) Rectal bleeding (primary encounter diagnosis) Return to Clinic: The patient is instructed to follow-up with me if needed. Randy Goyal MD documented in this encounterSelect [facility] [place]04-27-[facility]22 Miscellaneous Notes* Telephone Encounter - Teresita Bernstein LPN - 10/17/2021 9:53 AM EDT Called patient, and advised to keep appointment to let Dr Goyal exam and determine how to proceed. Teresita Bernstein LPN * Telephone Encounter - Afua Vieira Pss - 10/17/2021 8:47 AM EDT Patient is calling in regards to tomorrows appointment he states that he is not sure he could do a banding procedure tomorrow as he is having tightness and burning please advise the patient. Patient is also asking if anything could be called into pharmacy for this. He uses [facility]. He also states PCP has order Cortizone cream in the past that did not help. He did mention preparation H didhelp some but with all the warnings on that he was worried to continue using it. documented in this encounterSelect [facility] [place] History of Past illness Narrative* Problem Noted Date Resolved Date Special screening examination for viral disease 09/26/2021 09/26/2021 Backache, unspecified 12/03/2013 09/04/2016 Hyperlipidemia 10/29/2012 09/26/2021 Palpitations 02/25/2012 03/28/2021 Pain in joint, lower leg 02/20/2010 013 Pain in joint, shoulder region 02/20/2010 0 10/29/2012 Routine general medical exam ination at a health care facility 10/16/2009 02/10/2012 Overview: 10/16/2009, from Dr. Galvan 10/12/2010, yearly check-up Cervicalgia 08/21/2005 10/29/2012 documented as of this encounter (statuses as of 09/26/2021) [facility] [place] History of Past illness Narrative* Problem Noted Date Resolved Date Special screening examination for viral disease 09/26/2021 09/26/2021 Backache, unspecified 12/03/2013 09/04/2016 Hyperlipidemia 10/29/2012 09/26/2021 Palpitations 02/25/2012 03/28/2021 Pain in joint, lower leg 02/20/2010 013 Pain in joint, shoulder region 02/20/2010 0 10/29/2012 Routine general medical exam ination at a health care facility 10/16/2009 02/10/2012 Overview: 10/16/2009, from Dr. Galvan 10/12/2010, yearly check-up Cervicalgia 08/21/2005 10/29/2012 documented as of this encounter (statuses as of 10/17/2021) [address]06-2022 History of Past illness Narrative* Problem Noted Date Resolved Date Special screening examination for viral disease 09/26/2021 09/26/2021 Backache, unspecified 12/03/2013 09/04/2016 Hyperlipidemia 10/29/2012 09/26/2021 Palpitations 02/25/2012 03/28/2021 Pain in joint, lower leg 02/20/2010 013 Pain in joint, shoulder region 02/20/2010 0 10/29/2012 Routine general medical exam ination at a health care facility 10/16/2009 02/10/2012 Overview: 10/16/2009, from Dr. Galvan 10/12/2010, yearly check-up Cervicalgia 08/21/2005 10/29/2012 documented as of this encounter (statuses as of 10/18/2021) [facility] [place] History of Past illness Narrative* Problem Noted Date Resolved Date Special screening examination for viral disease 09/26/2021 09/26/2021 Backache, unspecified 12/03/2013 09/04/2016 Hyperlipidemia 10/29/2012 09/26/2021 Palpitations 02/25/2012 03/28/2021 Pain in joint, lower leg 02/20/2010 013 Pain in joint, shoulder region 02/20/2010 0 10/29/2012 Routine general medical exam ination at a health care facility 10/16/2009 02/10/2012 Overview: 10/16/2009, from Dr. Galvan 10/12/2010, yearly check-up Cervicalgia 08/21/2005 10/29/2012 documented as of this encounter (statuses as of 11/02/2021) [facility] [place] History of Past illness Narrative* Problem Noted Date Resolved Date Special screening examination for viral disease 09/26/2021 09/26/2021 Backache, unspecified 12/03/2013 09/04/2016 Hyperlipidemia 10/29/2012 09/26/2021 Palpitations 02/25/2012 03/28/2021 Pain in joint, lower leg 02/20/2010 013 Pain in joint, shoulder region 02/20/2010 0 10/29/2012 Routine general medical exam ination at a health care facility 10/16/2009 02/10/2012 Overview: 10/16/2009, from Dr. Galvan 10/12/2010, yearly check-up Cervicalgia 08/21/2005 10/29/2012 documented as of this encounter (statuses as of 11/12/2021) [facility] [place] History of Past illness Narrative* Problem Noted Date Resolved Date Special screening examination for viral disease 09/26/2021 09/26/2021 Backache, unspecified 12/03/2013 09/04/2016 Hyperlipidemia 10/29/2012 09/26/2021 Palpitations 02/25/2012 03/28/2021 Pain in joint, lower leg 02/20/2010 013 Pain in joint, shoulder region 02/20/2010 0 10/29/2012 Routine general medical exam ination at a health care facility 10/16/2009 02/10/2012 Overview: 10/16/2009, from Dr. Galvan 10/12/2010, yearly check-up Cervicalgia 08/21/2005 10/29/2012 documented as of this encounter (statuses as of 12/03/2021) [facility] [place] History of Past illness Narrative* Problem Noted Date Resolved Date Special screening examination for viral disease 09/26/2021 09/26/2021 Backache, unspecified 12/03/2013 09/04/2016 Hyperlipidemia 10/29/2012 09/26/2021 Palpitations 02/25/2012 03/28/2021 Pain in joint, lower leg 02/20/2010 013 Pain in joint, shoulder region 02/20/2010 0 10/29/2012 Routine general medical exam ination at a health care facility 10/16/2009 02/10/2012 Overview: 10/16/2009, from Dr. Galvan 10/12/2010, yearly check-up Cervicalgia 08/21/2005 10/29/2012 documented as of this encounter (statuses as of 12/18/2021) [address]06-[address]22 History of Past illness Narrative* Problem Noted Date Resolved Date Special screening examination for viral disease 09/26/2021 09/26/2021 Backache, unspecified 12/03/2013 09/04/2016 Hyperlipidemia 10/29/2012 09/26/2021 Palpitations 02/25/2012 03/28/2021 Pain in joint, lower leg 02/20/2010 013 Pain in joint, shoulder region 02/20/2010 0 10/29/2012 Routine general medical exam ination at a health care facility 10/16/2009 02/10/2012 Overview: 10/16/2009, from Dr. Galvan 10/12/2010, yearly check-up Cervicalgia 08/21/2005 10/29/2012 documented as of this encounter (statuses as of 12/21/2021) [facility] [place] History of Past illness Narrative* Problem Noted Date Resolved Date Special screening examination for viral disease 09/26/2021 09/26/2021 Backache, unspecified 12/03/2013 09/04/2016 Hyperlipidemia 10/29/2012 09/26/2021 Palpitations 02/25/2012 03/28/2021 Pain in joint, lower leg 02/20/2010 013 Pain in joint, shoulder region 02/20/2010 0 10/29/2012 Routine general medical exam ination at a health care facility 10/16/2009 02/10/2012 Overview: 10/16/2009, from Dr. Galvan 10/12/2010, yearly check-up Cervicalgia 08/21/2005 10/29/2012 documented as of this encounter (statuses as of 01/04/2022) [facility] [place] of Past illness Narrative* Problem Noted Date Resolved Date Special screening examination for viral disease 09/26/2021 09/26/2021 Backache, unspecified 12/03/2013 09/04/2016 Hyperlipidemia 10/29/2012 09/26/2021 Palpitations 02/25/2012 03/28/2021 Pain in joint, lower leg 02/20/2010 013 Pain in joint, shoulder region 02/20/2010 0 10/29/2012 Routine general medical exam ination at a health care facility 10/16/2009 02/10/2012 Overview: 10/16/2009, from Dr. Galvan 10/12/2010, yearly check-up Cervicalgia 08/21/2005 10/29/2012 documented as of this encounter (statuses as of 01/07/2022) [facility] [place] History of Past illness Narrative* Problem Noted Date Resolved Date Special screening examination for viral disease 09/26/2021 09/26/2021 Backache, unspecified 12/03/2013 09/04/2016 Hyperlipidemia 10/29/2012 09/26/2021 Palpitations 02/25/2012 03/28/2021 Pain in joint, lower leg 02/20/2010 013 Pain in joint, shoulder region 02/20/2010 0 10/29/2012 Routine general medical exam ination at a health care facility 10/16/2009 02/10/2012 Overview: 10/16/2009, from Dr. Galvan 10/12/2010, yearly check-up Cervicalgia 08/21/2005 10/29/2012 documented as of this encounter (statuses as of 01/11/2022) [facility] [place] History of Past illness Narrative* Problem Noted Date Resolved Date Special screening examination for viral disease 09/26/2021 09/26/2021 Backache, unspecified 12/03/2013 09/04/2016 Hyperlipidemia 10/29/2012 09/26/2021 Palpitations 02/25/2012 03/28/2021 Pain in joint, lower leg 02/20/2010 013 Pain in joint, shoulder region 02/20/2010 0 10/29/2012 Routine general medical exam ination at a health care facility 10/16/2009 02/10/2012 Overview: 10/16/2009, from Dr. Galvan 10/12/2010, yearly check-up Cervicalgia 08/21/2005 10/29/2012 documented as of this encounter (statuses as of 01/14/2022) [address]22 History of Past illness Narrative* Problem Noted Date Resolved Date Special screening examination for viral disease 09/26/2021 09/26/2021 Backache, unspecified 12/03/2013 09/04/2016 Hyperlipidemia 10/29/2012 09/26/2021 Palpitations 02/25/2012 03/28/2021 Pain in joint, lower leg 02/20/2010 013 Pain in joint, shoulder region 02/20/2010 0 10/29/2012 Routine general medical exam ination at a health care facility 10/16/2009 02/10/2012 Overview: 10/16/2009, from Dr. Galvan 10/12/2010, yearly check-up Cervicalgia 08/21/2005 10/29/2012 documented as of this encounter (statuses as of 01/17/2022) [facility] [place] History of Past illness Narrative* Problem Noted Date Resolved Date Special screening examination for viral disease 09/26/2021 09/26/2021 Backache, unspecified 12/03/2013 09/04/2016 Hyperlipidemia 10/29/2012 09/26/2021 Palpitations 02/25/2012 03/28/2021 Pain in joint, lower leg 02/20/2010 013 Pain in joint, shoulder region 02/20/2010 0 10/29/2012 Routine general medical exam ination at a health care facility 10/16/2009 02/10/2012 Overview: 10/16/2009, from Dr. Galvan 10/12/2010, yearly check-up Cervicalgia 08/21/2005 10/29/2012 documented as of this encounter (statuses as of 01/21/2022) [facility] [place] History of Past illness Narrative* Problem Noted Date Resolved Date Special screening examination for viral disease 09/26/2021 09/26/2021 Backache, unspecified 12/03/2013 09/04/2016 Hyperlipidemia 10/29/2012 09/26/2021 Palpitations 02/25/2012 03/28/2021 Pain in joint, lower leg 02/20/2010 013 Pain in joint, shoulder region 02/20/2010 0 10/29/2012 Routine general medical exam ination at a health care facility 10/16/2009 02/10/2012 Overview: 10/16/2009, from Dr. Galvan 10/12/2010, yearly check-up Cervicalgia 08/21/2005 10/29/2012 documented as of this encounter (statuses as of 02/04/2022) [facility] [place] of Past illness Narrative* Problem Noted Date Resolved Date Special screening examination for viral disease 09/26/2021 09/26/2021 Backache, unspecified 12/03/2013 09/04/2016 Hyperlipidemia 10/29/2012 09/26/2021 Palpitations 02/25/2012 03/28/2021 Pain in joint, lower leg 02/20/2010 013 Pain in joint, shoulder region 02/20/2010 0 10/29/2012 Routine general medical exam ination at a health care facility 10/16/2009 02/10/2012 Overview: 10/16/2009, from Dr. Galvan 10/12/2010, yearly check-up Cervicalgia 08/21/2005 10/29/2012 documented as of this encounter (statuses as of 03/29/2022) [facility] [place] of Past illness Narrative* Problem Noted Date Resolved Date Special screening examination for viral disease 09/26/2021 09/26/2021 Backache, unspecified 12/03/2013 09/04/2016 Hyperlipidemia 10/29/2012 09/26/2021 Palpitations 02/25/2012 03/28/2021 Pain in joint, lower leg 02/20/2010 013 Pain in joint, shoulder region 02/20/2010 0 10/29/2012 Routine general medical exam ination at a health care facility 10/16/2009 02/10/2012 Overview: 10/16/2009, from Dr. Galvan 10/12/2010, yearly check-up Cervicalgia 08/21/2005 10/29/2012 documented as of this encounter (statuses as of 04/04/2022) [facility] [place] of Past illness Narrative* Problem Noted Date Resolved Date Special screening examination for viral disease 09/26/2021 09/26/2021 Backache, unspecified 12/03/2013 09/04/2016 Hyperlipidemia 10/29/2012 09/26/2021 Palpitations 02/25/2012 03/28/2021 Pain in joint, lower leg 02/20/2010 013 Pain in joint, shoulder region 02/20/2010 0 10/29/2012 Routine general medical exam ination at a health care facility 10/16/2009 02/10/2012 Overview: 10/16/2009, from Dr. Galvan 10/12/2010, yearly check-up Cervicalgia 08/21/2005 10/29/2012 documented as of this encounter (statuses as of 04/08/2022) [facility] [place] of Past illness Narrative* Problem Noted Date Resolved Date Special screening examination for viral disease 09/26/2021 09/26/2021 Backache, unspecified 12/03/2013 09/04/2016 Hyperlipidemia 10/29/2012 09/26/2021 Palpitations 02/25/2012 03/28/2021 Pain in joint, lower leg 02/20/2010 013 Pain in joint, shoulder region 02/20/2010 0 10/29/2012 Routine general medical exam ination at a health care facility 10/16/2009 02/10/2012 Overview: 10/16/2009, from Dr. Galvan 10/12/2010, yearly check-up Cervicalgia 08/21/2005 10/29/2012 documented as of this encounter (statuses as of 04/11/2022) [facility] [place] of Past illness Narrative* Problem Noted Date Resolved Date Special screening examination for viral disease 09/26/2021 09/26/2021 Backache, unspecified 12/03/2013 09/04/2016 Hyperlipidemia 10/29/2012 09/26/2021 Palpitations 02/25/2012 03/28/2021 Pain in joint, lower leg 02/20/2010 013 Pain in joint, shoulder region 02/20/2010 0 10/29/2012 Routine general medical exam ination at a health care facility 10/16/2009 02/10/2012 Overview: 10/16/2009, from Dr. Galvan 10/12/2010, yearly check-up Cervicalgia 08/21/2005 10/29/2012 documented as of this encounter (statuses as of 04/29/2022) [address]06-2022 History of Past illness Narrative* Problem Noted Date Resolved Date Special screening examination for viral disease 09/26/2021 09/26/2021 Backache, unspecified 12/03/2013 09/04/2016 Hyperlipidemia 10/29/2012 09/26/2021 Palpitations 02/25/2012 03/28/2021 Pain in joint, lower leg 02/20/2010 013 Pain in joint, shoulder region 02/20/2010 0 10/29/2012 Routine general medical exam ination at a health care facility 10/16/2009 02/10/2012 Overview: 10/16/2009, from Dr. Galvan 10/12/2010, yearly check-up Cervicalgia 08/21/2005 10/29/2012 documented as of this encounter (statuses as of 04/29/2022) [facility]04-06-2022 History of Past illness Narrative* Problem Noted Date Resolved Date Special screening examination for viral disease 09/26/2021 09/26/2021 Backache, unspecified 12/03/2013 09/04/2016 Hyperlipidemia 10/29/2012 09/26/2021 Palpitations 02/25/2012 03/28/2021 Pain in joint, lower leg 02/20/2010 013 Pain in joint, shoulder region 02/20/2010 0 10/29/2012 [facility]ine [facility] 10/16/2009 02/10/2012 Overview: 10/16/2009, from Dr. Galvan 10/12/2010, yearly check-up Cervicalgia 08/21/2005 10/29/2012 documented as of this encounter (statuses as of 05/01/2022) [facility]04-06-2022 History of Past illness Narrative* Problem Noted Date Resolved Date Special screening examination for viral disease 09/26/2021 09/26/2021 Backache, unspecified 12/03/2013 09/04/2016 Hyperlipidemia 10/29/2012 09/26/2021 Palpitations 02/25/2012 03/28/2021 Pain in joint, lower leg 02/20/2010 013 Pain in joint, shoulder region 02/20/2010 0 10/29/2012 Routine general medical exam ination at a health care facility 10/16/2009 02/10/2012 Overview: 10/16/2009, from Dr. Galvan 10/12/2010, yearly check-up Cervicalgia 08/21/2005 10/29/2012 documented as of this encounter (statuses as of 05/02/2022) [facility]2022 History of Past illness Narrative* Problem Noted Date Resolved Date Special screening examination for viral disease 09/26/2021 09/26/2021 Backache, unspecified 12/03/2013 09/04/2016 Hyperlipidemia 10/29/2012 09/26/2021 Palpitations 02/25/2012 03/28/2021 Pain in joint, lower leg 02/20/2010 013 Pain in joint, shoulder region 02/20/2010 0 10/29/2012 Routine general medical exam ination at a health care facility 10/16/2009 02/10/2012 Overview: 10/16/2009, from Dr. Galvan 10/12/2010, yearly check-up Cervicalgia 08/21/2005 10/29/2012 documented as of this encounter (statuses as of 05/02/2022) [facility] History of Past illness Narrative* Problem Noted Date Resolved Date Special screening examination for viral disease 09/26/2021 09/26/2021 Backache, unspecified 12/03/2013 09/04/2016 Hyperlipidemia 10/29/2012 09/26/2021 Palpitations 02/25/2012 03/28/2021 Pain in joint, lower leg 02/20/2010 013 Pain in joint, shoulder region 02/20/2010 0 10/29/2012 Routine general medical exam ination at a health care facility 10/16/2009 02/10/2012 Overview: 10/16/2009, from Dr. Galvan 10/12/2010, yearly check-up Cervicalgia 08/21/2005 10/29/2012 documented as of this encounter (statuses as of 07/31/2022) [address]06-2022 History of Past illness Narrative* Problem Noted Date Resolved Date Special screening examination for viral disease 09/26/2021 09/26/2021 Backache, unspecified 12/03/2013 09/04/2016 Hyperlipidemia 10/29/2012 09/26/2021 Palpitations 02/25/2012 03/28/2021 Pain in joint, lower leg 02/20/2010 013 Pain in joint, shoulder region 02/20/2010 0 10/29/2012 Routine general medical exam ination at a health care facility 10/16/2009 02/10/2012 Overview: 10/16/2009, from Dr. Galvan 10/12/2010, yearly check-up Cervicalgia 08/21/2005 10/29/2012 documented as of this encounter (statuses as of 09/20/2022) [facility]04-[facility]2022 History of Past illness Narrative* Problem Noted Date Resolved Date Special screening examination for viral disease 09/26/2021 09/26/2021 Backache, unspecified 12/03/2013 09/04/2016 Hyperlipidemia 10/29/2012 09/26/2021 Palpitations 02/25/2012 03/28/2021 Pain in joint, lower leg 02/20/2010 013 Pain in joint, shoulder region 02/20/2010 0 10/29/2012 Routine general medical exam ination at a health care facility 10/16/2009 02/10/2012 Overview: 10/16/2009, from Dr. Galavn 10/12/2010, yearly check-up Cervicalgia 08/21/2005 10/29/2012 documented as of this encounter (statuses as of 10/03/2022) [facility] History of Past illness Narrative* Problem Noted Date Resolved Date Special screening examination for viral disease 09/26/2021 09/26/2021 Backache, unspecified 12/03/2013 09/04/2016 Hyperlipidemia 10/29/2012 09/26/2021 Palpitations 02/25/2012 03/28/2021 Pain in joint, lower leg 02/20/2010 013 Pain in joint, shoulder region 02/20/2010 0 10/29/2012 Routine general medical exam ination at a health care facility 10/16/2009 02/10/2012 Overview: 10/16/2009, from Dr. Galvan 10/12/2010, yearly check-up Cervicalgia 08/21/2005 10/29/2012 documented as of this encounter (statuses as of 10/07/2022) [facility]04-06-2022 History of Past illness Narrative* Problem Noted Date Resolved Date Special screening examination for viral disease 09/26/2021 09/26/2021 Backache, unspecified 12/03/2013 09/04/2016 Hyperlipidemia 10/29/2012 09/26/2021 Palpitations 02/25/2012 03/28/2021 Pain in joint, lower leg 02/20/2010 013 Pain in joint, shoulder region 02/20/2010 0 10/29/2012 Routine general medical exam ination at a [facility] care facility 10/16/2009 02/10/2012 Overview: 10/16/2009, from Dr. Galvan 10/12/2010, yearly check-up Cervicalgia 08/21/2005 10/29/2012 documented as of this encounter (statuses as of 10/18/2022) [facility]04-06-2022 History of Present illness Narrative* Alan Ward MD - 09/26/2021 8:35 AM EDT Patient presents with: 6 Month Exam HPI: Patient presents today for office visit for follow up. Has seen EPS. Just saw Dr. Gonzalez. Has still has some issues with palpitations. He is reluctant to do further procedures. Had hemorrhoids fixed in 2018. Last had colonoscopy then. Still with some bleeding. Still can feel discomfort. No issues like constipation or diarrhea. No chest pain or shortness of breath. No edema. No dizziness. Still with some anxiety. Using meds prn. oarrs done. No overuse or abuse. Still using cpap and benefiting. Are continuing to watch a1c. See previous ov: CARDIO:sees [facility]. Back in a fib. ekg done at [facility]. They did do any labs but asked him to send copies of ours. Will double check a few today. On xarelto. On cardizem. Rate is controlled. HTN: Patient is compliant with meds Yes Denies side effects: Yes. Chest pain: No. Dyspnea: No. Edema: No. Palpitations: Did have some flutter. Syncope: No. Headache: No. Dizziness: No. HYPERLIPIDEMIA: Patient is taking medications: Yes. Patient denies myalgias: Yes. PSYCH:oarrs done. Uses meds prn. Overall doing well. RAMSEY:still treating. cpap working well. Component Latest Ref Rng & Units 09/21/2021 Hemoglobin A1C 4.3 - 5.6 % 5.9 (H) Estimated Average Glucose mg/dL 123 TSH 0.270 - 4.200 mIU/L 1.600 MEDICATIONS: Current Outpatient Medications Medication Sig albuterol HFA (PROAIR HFA) 90 mcg/actuation inhaler Inhale 2 Puffs as instructed every 6 hours as needed. LORazepam (ATIVAN) 0.5 mg Take 1 tablet by mouth three times daily as needed (anxiety) for up to 90days. benazepril (LOTENSIN) 20 mg tablet Take 1 tablet by mouth once daily. calcium carbonate (TUMS ORAL) Take 2 tablets by mouth as needed. hydroCHLOROthiazide (HYDRODIURIL, ESIDRIX) 12.5 mg tablet Take 12.5 mg by mouth once daily. atorvastatin (LIPITOR) 20 mg tablet Take 1 tablet by mouth once daily. XARELTO 20 mg tablet Take 1 tablet by mouth once daily. melatonin 3 mg capsules Take 3 mg by mouth at bedtime as needed. potassium chloride (K-TAB) 10 mEq tablet Take 10 mEq by mouth once daily. diltiazem CD (CARDIZEM CD, CARTIA XT) 240 mg 24 hr capsule Take 1 capsule by mouth once daily. metoprolol tartrate, short acting, (LOPRESSOR) 100 mg tablet Take 100 mg by mouth twice daily. loratadine (CLARITIN) 10 mg tablet Take 10 mg by mouth once daily. fluticasone (FLONASE) 50 mcg/actuation nasal spray Use 2 Sprays in each nostril once daily. Rinse mouth after use. (Patient not taking: Reported on 09/26/2021 ) No current facility-administered medications for this visit. ALLERGIES: ALLERGIES Allergen Reactions Vicodin [Hydrocodon* Mental Status Change PAST MEDICAL HISTORY Diagnosis Date Anticoagulant long-term use Arrhythmia At risk for stroke [id number] = 1 (HTN) Essential hypertension Essential hypertension Generalized anxiety disorder Hemorrhage of gastrointestinal tract, unspecified Paroxysmal atrial fibrillation (HCC) Sleep apnea does not use cpap. Snoring PAST SURGICAL HISTORY Procedure Laterality Date COLONOSCOPY FLX DX W/COLLJ SPEC WHEN PFRMD 07/11/2008 Colonoscopy COLONOSCOPY FLX DX W/COLLJ SPEC WHEN PFRMD 05/26/2018 Colonoscopy ESOPHAGOGASTRODUODENOSCOPY TRANSORAL DIAGNOSTIC 05/26/2018 EGD HEMORRHOIDECTOMY INTERNAL RUBBER BAND LIGATIONS 05/26/2018 FAMILY HISTORY Problem Relation Age of Onset Heart Mother Valve Replacement COPD Mother other (history of smoking) Mother Hypertension Father Kidney failure Father kidney disease - on dialysis Heart disease Father heart valve problem Hypertension Sister Hyperlipidemia Sister other (sudden ) Brother other (sudden infant ) Brother Thyroid Son Prostate Cancer No Family History none Social History Tobacco Use Smoking status: Never Smoker Smokeless tobacco: Never Used Vaping Use Vaping Use: Never used Substance Use Topics Alcohol use: Yes Comment: very occasional Drug use: No Reviewed current medications, allergies, past medical history, surgical history, family history andsocial history today. REVIEW OF SYSTEMS All other reviewed and negative other than HPI. HEALTH MAINTENANCE: Reviewed health maintenance issues today and recommended the following in detail. HEPATITIS C SCREENING -declines HIV SCREENING - declines. PROSTATE CANCER SCREENING DISCUSSION-Had discussion with patient regarding risks and benefits of prostate screening. Allowed them to decide if they wished to proceed with screening including BISHOP and PSA. VITALS: BP 140/78 Pulse 66 Resp 14 Wt 102.5 kg (226 lb) BMI 31.52 kg/m Last 4 Encounter Wt Readings: Date: Wt: 09/26/2021 102.5 kg (226 lb) 08/25/2021 102.8 kg (226 lb 9.6 oz) 08/20/2021 103 kg (227 lb) 05/02/2021 102.5 kg (226 lb) PHYSICAL EXAMINATION: General appearance: Well appearing, alert, in no acute distress, well-hydrated, well nourished. Skin: Skin color, texture, turgor normal, no suspicious rashes or lesions Head: Normocephalic, no masses, lesions, tenderness or abnormalitie Lungs: Lungs clear to auscultation. No wheezing, rhonchi, rales Heart: RRR without murmur, gallop, or rubs. No ectopy Abdomen: Normal abdominal exam, Abdomen soft, non-tender. Bowel sounds normal. No masses, organomegaly Extremities: No deformities, edema, skin discoloration, clubbing or cyanosis. Good capillary refill. Rectal:stool heme negative. External hemorrhoids. No fissures. No prostate masses noted. ASSESSMENT/PLAN: 1. Essential hypertension - ICD9: 401.9, ICD10: I10 (primary diagnosis) - fair control - Follow with cardiolgoy - Goal of BP <130/80 2. Mixed hyperlipidemia - ICD9: 272.2, ICD10: E78.2 - good control - Continue current medication. - COMP METABOLIC PANEL - LIPID PANEL BASIC 3. Paroxysmal atrial fibrillation (HCC) - ICD9: 427.31, ICD10: I48.0 - CBC + DIFF 4. Unspecified sleep apnea - ICD9: 780.57, ICD10: G47.30 -follow progress 5. Hyperglycemia - ICD9: 790.29, ICD10: R73.9 - HGB A1C 6. Generalized anxiety disorder - ICD9: 300.02, ICD10: F41.1 7. Anticoagulant long-term use - ICD9: V58.61, ICD10: Z79.01 8. Rectal bleeding - ICD9: 569.3, ICD10: K62.5 Red flags for re-assessment reviewed with patient in detail. - HEMOCCULT SINGLE B/O - CONSULT TO GENERAL SURGERY 9. External hemorrhoid - ICD9: 455.3, ICD10: K64.4 - fluids and fiber. Follow back up with surgeyr. - HYDROCORTISONE 2.5 % TOPICAL CREAM WITH PERINEAL APPLICATOR - CONSULT TO GENERAL SURGERY Alan Ward [facility] [place] Miscellaneous Notes* Telephone Encounter - Janina Jimenes Ma - 09/17/2021 2:07 PM EDT Please see pt message. Lab work last completed 03/2021 Janina Jimenes Ma documented [facility] [place] NoteHNO ID: [id number] Author: Jim Monson MD Service: ? Author Type: Physician Type: Progress Notes Filed: 09/21/2021 9:12 AM Note Text: PRIMARY CARE PHYSICIAN: Alan Ward [address] [place] [address] REFERRING PHYSICIAN: Diaz Gonzalez MD ([facility]) [address] [place] [address] [facility] [id number] Patient Care Team: Alan Ward MD as PCP - General (Family Practice) Diaz Gonzalez as Specialty Professional Soccer Player (Cardiology) Juan Zapata as Specialty Professional Soccer Player (Internal Medicine) CHIEF COMPLAINT: Evaluation of atrial fibrillation HISTORY OF PRESENT ILLNESS: Mr. Piedra is a 60 year old male who presents today with his for evaluation of atrial fibrillation. He states the atrial fibrillation was diagnosed a couple of years ago, but he had been experiencing intermittent brief palpitations for several years prior to that. When the atrial fibrillation was diagnosed, he had been at work and suddenly felt his heart racing. He just did not feel well. He went to a local urgent care and was found to be in atrial fibrillation with rapid ventricular response rates. He was sent to the [facility], admitted to the hospital. 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 The atrial fibrillation spontaneously converted back to sinus rhythm. He has been treated with rate controlling medication and oral anticoagulation therapy. He states he experiences occasional episodes, with the episodes lasting a few hours although over time has become longer duration. One episode in March 2021 lasted for about 4 days. The episode prior to that was in November 2020 and lasted about one or 2 days. Symptoms include palpitations, exertional shortness of breath, but not syncope or chest pain. He is not aware of any triggering or exacerbating factors for the arrhythmia, such as caffeine or alcohol intake. He avoids alcohol entirely. He drinks about 1 cup of coffee each morning. He does periodically check his heart rhythm with his wrist monitor [employer]. He denies chest pain, shortness of breath, orthopnea, PND, lightheadedness or syncope. I have confirmed and edited as necessary, the PFSH and ROS obtained by others. PAST MEDICAL HISTORY Diagnosis Date - Anticoagulant long-term use - Arrhythmia - At risk for stroke [id number] = 1 (HTN) - Essential hypertension Essential hypertension - Generalized anxiety disorder - Hemorrhage of gastrointestinal tract, unspecified - Paroxysmal atrial fibrillation (HCC) - Sleep apnea does not use cpap. - Snoring PAST SURGICAL HISTORY Procedure Laterality Date - COLONOSCOP W/ OR W/O [facility] SPEC 07/11/2008 Colonoscopy - COLONOSCOP W/ OR W/O [facility] SPEC 05/26/2018 Colonoscopy - EGD W/O OR W/BRUSH/WASH 05/26/2018 EGD - HEMORRHOID;BAND LIGAT, SNGL/MUL 05/26/2018 SOCIAL HISTORY Social History Tobacco Use - Smoking status: Never Smoker - Smokeless tobacco: Never Used Vaping Use - Vaping Use: Never used Substance Use Topics - Alcohol use: Yes Comment: very occasional - Drug use: No FAMILY HISTORY Problem Relation Age of Onset - Heart Mother Valve Replacement - COPD Mother - other (history of smoking) Mother - Hypertension Father - Kidney failure Father kidney disease - on dialysis - Heart disease Father heart valve problem - Hypertension Sister - Hyperlipidemia Sister - other (sudden infant ) Brother - other (sudden infant ) Brother - Thyroid Son - Prostate Cancer No Family History none ALLERGIES: ALLERGIES Allergen Reactions - Vicodin [Hydrocodon* Mental Status Change MEDICATIONS: calcium carbonate (TUMS ORAL), Take 2 tablets by mouth as needed. hydroCHLOROthiazide (HYDRODIURIL, ESIDRIX) 12.5 mg tablet, Take 12.5 mg by mouth once daily. atorvastatin (LIPITOR) 20 mg tablet, Take 1 tablet by mouth once daily. LORazepam (ATIVAN) 0.5 mg, Take 1 tablet by mouth three times daily as needed (anxiety) for up to 90 days. XARELTO 20 mg tablet, Take 1 tablet by mouth once daily. melatonin 3 mg capsules, Take 3 mg by mouth at bedtime as needed. potassium chloride (K-TAB) 10 mEq tablet, Take 10 mEq by mouth once daily. diltiazem CD (CARDIZEM CD, CARTIA XT) 240 mg 24 hr capsule, Take 1 capsule by mouth once daily. benazepril (LOTENSIN) 20 mg tablet, Take 1 tablet by mouth once daily. metoprolol tartrate, short acting, (LOPRESSOR) 100 mg tablet, Take 100 mg by mouth twice daily. loratadine (CLARITIN) 10 mg tablet, Take 10 mg by mouth once daily. REVIEW OF SYSTEMS: Review of Systems Constitutional: Negative for chills, fever and weight loss. Respiratory: Negative for cough, hemoptysis, sputum production and shortness of breath. Cardiovascular: Positive for palpitations. Negative for chest pain, orthopnea, leg swelling and PND. Gastrointestinal: Negative for abdominal pain, blood in stool, nausea and vomiting. Genitourinary: Negative (more content not included)...[facility]06-13-2014 History of Past illness Narrative* Problem Noted Date Resolved Date Backache, unspecified 12/03/2013 09/04/2016 Palpitations 02/25/2012 03/28/2021 Pain in joint, lower leg 02/20/2010 013 Pain in joint, shoulder region 02/20/2010 0 10/29/2012 Routine general medical exam ination at a health care facility 10/16/2009 02/10/2012 Overview: 10/16/2009, from Dr. Galvan 10/12/2010, yearly check-up Cervicalgia 08/21/2005 10/29/2012 documented as of this encounter (statuses as of 09/17/2021) [facility] Diagnosis Hyperglycemia- Primary Other abnormal glucose documented [facility] this [facility] Diagnosis Onset Date Resolution Status RAMSEY (obstructive sleep apnea) chronic Essential (primary) hypertension chronic Paroxysmal atrial fibrillation chronic Pure hypercholesterolemia [facility] Chest pain acute Essential (primary) hypertension chronic Paroxysmal atrial fibrillation chronic Pure hypercholesterolemia [facility] Work Phone: Evaluation note* Diagnosis Essential hypertension- Primary Unspecified essential hypertension Mixed hyperlipidemia Paroxysmal atrial fibrillation (HCC) Atrial fibrillation Unspecified sleep apnea Hyperglycemia Other abnormal glucose Generalized anxiety disorder Anticoagulant long-term use Long-term (current) use of anticoagulants Rectal bleeding Hemorrhage of rectum and anus External hemorrhoid External hemorrhoids without mention of complication documented [facility] this [facility] Diagnosis Rectal bleeding- Primary Hemorrhage of rectum and anus [facility] Diagnosis Lower abdominal pain- Primary Abdominal pain, other specified site [facility] Diagnosis Abdominal discomfort in right lower quadrant- Primary Abdominal pain, right lower quadrant Abdominal discomfort in left lower quadrant Abdominal pain, left lower quadrant Essential hypertension Unspecified essential hypertension Anxiety Anxiety state, unspecified Right lower quadrant abdominal pain Abdominal pain, right lower quadrant [facility]* Diagnosis Onset Date Resolution Status Chest pain acute Essential (primary) hypertension chronic Paroxysmal atrial fibrillation chronic Pure hypercholesterolemia [facility] Work Phone: Evaluation note* Diagnosis Abdominal discomfort in right lower quadrant Abdominal pain, right lower quadrant Abdominal discomfort in left lower quadrant Abdominal pain, left lower quadrant Right lower quadrant abdominal pain Abdominal pain, right lower quadrant documented [facility]* Diagnosis Elevated liver enzymes- Primary Other nonspecific abnormal serum enzyme levels [facility]* Diagnosis Elevated liver enzymes- Primary Other nonspecific abnormal serum enzyme levels [facility]* Diagnosis Abdominal discomfort- Primary Abdominal pain, unspecified site Elevated liver enzymes Other nonspecific abnormal serum enzyme levels Unilateral inguinal hernia without obstruction or gangrene, recurrence not specified Paroxysmal atrial fibrillation (HCC) Atrial fibrillation [facility]* Diagnosis Abdominal discomfort Abdominal pain, unspecified site Unilateral inguinal hernia without obstruction or gangrene, recurrence not specified documented in this encounter [facility] note* Diagnosis Kidney stone- Primary Calculus of kidney Enlarged ureter Other specified disorder of kidney and ureter Abdominal discomfort Abdominal pain, unspecified site [facility]* Diagnosis Generalized anxiety disorder Abdominal discomfort Abdominal pain, unspecified site Unilateral inguinal hernia without obstruction or gangrene, recurrence not specified documented [facility] this encounter [facility]* Diagnosis Essential hypertension- Primary Unspecified essential hypertension Mixed hyperlipidemia Paroxysmal atrial fibrillation (HCC) Atrial fibrillation Pure hypercholesterolemia, unspecified Unspecified sleep apnea Hyperglycemia Other abnormal glucose Generalized anxiety disorder Anticoagulant long-term use Long-term (current) use of anticoagulants Abdominal discomfort Abdominal pain, unspecified site Unilateral inguinal hernia without obstruction or gangrene, recurrence not specified documented [facility]* Diagnosis Rectal bleeding- Primary Hemorrhage of rectum and anus documented in this encounter [facility]* Diagnosis Rectal bleeding- Primary Hemorrhage of rectum and anus documented in this encounter [facility]* Diagnosis Generalized anxiety disorder documented [facility]* Diagnosis Essential hypertension- Primary Unspecified essential hypertension [facility]* Diagnosis Generalized anxiety disorder [facility]* Diagnosis Onset Date Resolution Status RAMSEY (obstructive sleep apnea) chronic Essential (primary) hypertension chronic Paroxysmal atrial fibrillation chronic Pure hypercholesterolemia [facility] Work Phone: Evaluation note* Diagnosis Well adult exam- Primary Routine general medical examination at a health care facility Essential hypertension Unspecified essential hypertension Pure hypercholesterolemia, unspecified Mixed hyperlipidemia Unspecified sleep apnea Hyperglycemia Other abnormal glucose Generalized anxiety disorder Benign non-nodular prostatic hyperplasia without lower urinary tract symptoms Anticoagulant long-term use Long-term (current) use of anticoagulants Seasonal allergic rhinitis, unspecified trigger Anxiety Anxiety state, unspecified [facility] Essential hypertension- Primary Unspecified essential hypertension BPPV (benign paroxysmal positional vertigo), unspecified laterality Anxiety Anxiety state, unspecified [facility] Diagnosis Generalized anxiety disorder [facility] Diagnosis Benign paroxysmal positional vertigo, unspecified laterality- Primary [facility] Diagnosis Benign paroxysmal positional vertigo, unspecified laterality- Primary [facility] Diagnosis Generalized anxiety disorder [facility] Diagnosis COVID- Primary [facility] Diagnosis Hyperlipidemia, unspecified hyperlipidemia type [facility] Diagnosis Left inguinal pain- Primary Abdominal pain, left lower quadrant Essential hypertension Unspecified essential hypertension Paroxysmal atrial fibrillation (HCC) Atrial fibrillation Anticoagulant long-term use Long-term (current) use of anticoagulants Hydroureter [facility] Diagnosis Essential hypertension- Primary Unspecified essential hypertension Mixed hyperlipidemia [facility] Diagnosis Well adult exam- Primary Routine general medical examination at a health care facility Generalized anxiety disorder Essential hypertension Unspecified essential hypertension Mixed hyperlipidemia Paroxysmal atrial fibrillation (HCC) Atrial fibrillation Unspecified sleep apnea Hyperglycemia Other abnormal glucose Benign paroxysmal positional vertigo, unspecified laterality Obesity, Class I, BMI 30-34.9 Obesity, unspecified Allergy, subsequent encounter [facility] Diagnosis Viral illness- Primary Unspecified viral infection, in conditions classified elsewhere and of unspecified site [facility] Diagnosis Generalized anxiety disorder [facility] Diagnosis Essential hypertension- Primary Unspecified essential hypertension Mixed hyperlipidemia Paroxysmal atrial fibrillation (HCC) Atrial fibrillation Unspecified sleep apnea Hyperglycemia Other abnormal glucose Generalized Anxiety Disorder Generalized anxiety disorder Obesity, Class I, BMI 30-34.9 Obesity, unspecified Shakiness Abnormal involuntary movements [facility] Diagnosis Essential hypertension- Primary Unspecified essential hypertension Mixed hyperlipidemia Paroxysmal atrial fibrillation (HCC) Atrial fibrillation Unspecified sleep apnea Hyperglycemia Other abnormal glucose Benign non-nodular prostatic hyperplasia without lower urinary tract symptoms Obesity, Class I, BMI 30-34.9 Obesity, unspecified Generalized Anxiety Disorder Generalized anxiety disorder Tendinitis of shoulder, unspecified laterality [facility] Diagnosis Tendinitis of shoulder, unspecified laterality [facility] Diagnosis Lower abdominal pain Abdominal pain, other specified site [facility]* Diagnosis Generalized anxiety disorder [facility] Diagnosis Tendinitis of shoulder, unspecified laterality- Primary Acute right-sided low back pain without sciatica [facility] Diagnosis Tendinitis of left shoulder- Primary Disorders of bursae and tendons in shoulder region, unspecified Acute right-sided low back pain without sciatica [facility] Diagnosis Tendinitis of left shoulder- Primary Disorders of bursae and tendons in shoulder region, unspecified Acute right-sided low back pain without sciatica [facility] Diagnosis Tendinitis of left shoulder- Primary Disorders of bursae and tendons in shoulder region, unspecified Acute right-sided low back pain without sciatica [facility] Diagnosis Tendinitis of left shoulder- Primary Disorders of bursae and tendons in shoulder region, unspecified Acute right-sided low back pain without sciatica [facility] Diagnosis Tendinitis of shoulder, unspecified laterality- Primary [facility]* Diagnosis Sinusitis, unspecified chronicity, unspecified location- Primary Acute shoulder pain, unspecified laterality [facility] Diagnosis Generalized anxiety disorder [facility] Diagnosis Chronic pain of both shoulders- Primary Pain in joint, shoulder region Essential hypertension Unspecified essential hypertension Mixed hyperlipidemia Paroxysmal atrial fibrillation (HCC) Atrial fibrillation Sprain of ligament of left ankle, initial encounter [facility] Diagnosis Sprain of ligament of left ankle, initial encounter [facility] Diagnosis URI, acute- Primary Acute upper respiratory infections of unspecified site Flu Influenza with other respiratory manifestations [facility] Diagnosis Essential hypertension- Primary Unspecified essential hypertension Mixed hyperlipidemia Paroxysmal atrial fibrillation (HCC) Atrial fibrillation Unspecified sleep apnea Generalized Anxiety Disorder Generalized anxiety disorder Influenza A Influenza with other respiratory manifestations [facility] Diagnosis Sore throat- Primary Acute pharyngitis Soreness of tongue Glossodynia [facility] Diagnosis Generalized anxiety disorder [facility] Diagnosis Essential hypertension- Primary Unspecified essential hypertension Paroxysmal atrial fibrillation (HCC) Atrial fibrillation Mixed hyperlipidemia Unspecified sleep apnea Hyperglycemia Other abnormal glucose Benign paroxysmal positional vertigo, unspecified laterality Generalized Anxiety Disorder Generalized anxiety disorder Obesity, Class I, BMI 30-34.9 Obesity, unspecified Thrombocytosis Essential thrombocythemia Screening for depression [facility] Diagnosis Sore throat- Primary Acute pharyngitis [facility] Diagnosis Chronic pain of both shoulders- Primary Pain in joint, shoulder region Shoulder impingement Other affections of shoulder region, not elsewhere classified [facility] Diagnosis Acute non-recurrent sinusitis, unspecified location- Primary Hyperglycemia Other abnormal glucose Mixed hyperlipidemia Essential hypertension Unspecified essential hypertension [facility] Diagnosis Anxiety- Primary Anxiety state, unspecified Foot pain, left Pain in limb Plantar fasciitis Plantar fascial fibromatosis [facility] Diagnosis Tendinitis of shoulder, unspecified laterality- Primary Plantar fasciitis of left foot Plantar fascial fibromatosis [facility] Diagnosis Tendinitis of left shoulder- Primary Disorders of bursae and tendons in shoulder region, unspecified Plantar fasciitis of left foot Plantar fascial fibromatosis [facility] Diagnosis Tendinitis of left shoulder- Primary Disorders of bursae and tendons in shoulder region, unspecified Plantar fasciitis of left foot Plantar fascial fibromatosis [facility] Diagnosis Tendinitis of left shoulder- Primary Disorders of bursae and tendons in shoulder region, unspecified Plantar fasciitis of left foot Plantar fascial fibromatosis [facility] Diagnosis Posterior tibial tendon dysfunction- Primary Other disorders of synovium, tendon, and bursa Plantar fasciitis Plantar fascial fibromatosis Soft tissue mass Disorders of soft tissue, unspecified [facility] Diagnosis Pain in left foot Pain in limb [facility] Diagnosis Tendinitis of left shoulder- Primary Disorders of bursae and tendons in shoulder region, unspecified Foot pain, left Pain in limb Plantar fasciitis Plantar fascial fibromatosis Plantar fasciitis of left foot Plantar fascial fibromatosis [facility] Diagnosis Plantar fasciitis- Primary Plantar fascial fibromatosis [facility] Diagnosis Tendinitis of left shoulder- Primary Disorders of bursae and tendons in shoulder region, unspecified Plantar fasciitis of left foot Plantar fascial fibromatosis [facility] Diagnosis Onset Date Resolution Status Admit Date Essential (primary) hypertension chr onic January 11, 2025 7:49am Paroxysmal atrial fibrillation chron ic January 11, 2025 7:49am Pure hypercholesterolemia chronic January 11, 2025 7:49am [facility] Work Phone: Evaluation note* Diagnosis Posterior tibial tendon dysfunction Other disorders of synovium, tendon, and bursa Soft tissue mass Disorders of soft tissue, unspecified [facility] this [facility] Diagnosis Generalized anxiety disorder [facility] Diagnosis Eustachian tube dysfunction, bilateral- Primary Viral sinusitis Unspecified sinusitis (chronic) documented [facility] Diagnosis Bacterial sinusitis- Primary Unspecified sinusitis (chronic) documented in this encounter [facility] for referral (narrative)* Diagnostic Procedure Only (Routine) - Closed Specialty Diagnoses / Procedures Referred By Khoa pelayo Referred To Contact XR IMAGING Diagnoses Lower abdominal pain Procedures XR ABDOMEN 1V SUPINE RADIOLOGIC EXAM ABDOMEN 1 VIEW Alan Ward MD [address] [place] [address] Xr Imaging Referral ID Status Reason Start Date Expiration Date V isits Requested Visits Authorized [id number] Closed Auto-Generate d Referral 11/02/2021 12/02/2022 1 1 [facility] for referral (narrative)* Outpatient Procedure (Routine) - Authorized Specialty Diagnoses / Procedures Referred By Contac t Referred To Contact [facility] [place] Diagnoses Abdominal discomfort Unilateral inguinal hernia without obstruction or gangrene, recurrence not specified Procedures COLONOSCOPY DIAGNOSTIC COLONOSCOPY FLX DX W/COLLJ SPEC WHEN PFRMD Randy Goyal MD [address] [place] [address] [address] Referral ID Status Reason Start Date Expiration Date Visits Requested Visits Authorized [id number] Authorized Auto-Generat ed Referral 01/17/2022 01/17/2023 1 1 * Outpatient Procedure (Routine) - Authorized Specialty Diagnoses / Procedures Referred By Khoa t Referred To Contact [facility] [place] Diagnoses Abdominal discomfort Unilateral inguinal hernia without obstruction or gangrene, recurrence not specified Procedures EGD DIAGNOSTIC ESOPHAGOGASTRODUODENOSC OPY TRANSORAL DIAGNOSTIC Randy Goyal MD [address] [place] [address] [place] [address] Referral ID Status Reason Start Date Expiration Date Visits Requested Visits Authorized [id number] Authorized Auto-Generat ed Referral 01/17/2022 01/17/2023 1 1 [facility] for referral (narrative)* Diagnostic Procedure Only (Routine) - Authorized Specialty Diagnoses / Procedures Referred By Magdyac t Referred To Contact US IMAGING Diagnoses Left inguinal pain Hydroureter Procedures US KIDNEY/BLADDER US RETROPERITONEAL REAL TIME W/IMAGE COMPLETE Alan Ward MD [address] [place] [address] [place] [address] Referral ID Status Reason Start Date Expiration Date Visits Requested Visits Authorized [id number] Authorized Auto-Generat ed Referral 3 05/18/2024 1 1 [facility] for referral (narrative)* Diagnostic Procedure Only (Routine) - Closed Specialty Diagnoses / Procedures Referred By Contac t Referred To Contact XR IMAGING Diagnoses Lower abdominal pain Procedures XR ABDOMEN 1V SUPINE RADIOLOGIC EXAM ABDOMEN 1 VIEW Alan Ward MD [address] [place] [address] [place] [address] Referral ID Status Reason Start Date Expiration Date V isits Requested Visits Authorized [id number] Closed Auto-Generate d Referral 11/02/2021 12/02/2022 1 1 [facility] for referral (narrative)* Diagnostic Procedure Only (Routine) - Closed Specialty Diagnoses / Procedures Referred By Contac t Referred To Contact XR IMAGING Diagnoses Sprain of ligament of left ankle, initial encounter Procedures XR ANKLE GENERAL 3V AP/LAT/OBL LEFT RADEX ANKLE COMPLETE MINIMUM 3 VIEWS Alan Ward MD [address] [place] [address] [place] [address] Referral ID Status Reason Start Date Expiration Date V isits Requested Visits Authorized [id number] Closed Auto-Generate d Referral 07/09/2024 08/08/2025 1 1 * Consult, Test, Treat (Routine) - Pending Review Specialty Diagnoses / Procedures Referred By Contact Referred To Contact Orthopedics / [facility] Diagnoses Chronic pain of both shoulders Procedures CONSULT TO ORTHOPAEDICS OFFICE/OUTPATIENT [facility] 60 MINUTES Alan Ward MD [address] [place] [address] [facility] [address] [place] [address] Referral ID Status Reason Start Date Expiration Date Visits Requested Visits Authorized [id number] Pending Review OON/Self Pay Override 07/09/2024 07/09/2025 1 1 [facility] for referral (narrative)No reason for referral information availableWSum[facility] Work Phone: [facility] Narrative* Diagnostic Procedure Only (Routine) - Closed Specialty Diagnoses / Procedures Referred By Contac t Referred To Contact XR IMAGING Diagnoses Tendinitis of shoulder, unspecified laterality Procedures XR SHOULDER GENERAL 3V OR MORE AP/TRUE AP/OTHER RIGHT RADEX SHOULDER COMPLETE MINIMUM 2 VIEWS Alan Ward MD [address] [place], [place] [id number] [place] [address] Referral ID Status Reason Start Date Expiration Date V isits Requested Visits Authorized [id number] Closed Auto-Generate d Referral 03/08/2024 04/07/2025 1 1 [facility] for visit Narrative* Diagnostic Procedure Only (Routine) - Closed Specialty Diagnoses / Procedures Referred By Contac t Referred To Contact XR IMAGING Diagnoses Lower abdominal pain Procedures XR ABDOMEN 1V SUPINE RADIOLOGIC EXAM ABDOMEN 1 VIEW Alan Ward MD [address] [place] [address] [place] [address] Referral ID Status Reason Start Date Expiration Date V isits Requested Visits Authorized [id number] Closed Auto-Generate d Referral 11/02/2021 12/02/2022 1 1 [facility] for visit Narrative* Diagnostic Procedure Only (Routine) - Closed Specialty Diagnoses / Procedures Referred By Contac t Referred To Contact XR IMAGING Diagnoses Sprain of ligament of left ankle, initial encounter Procedures XR ANKLE GENERAL 3V AP/LAT/OBL LEFT RADEX ANKLE COMPLETE MINIMUM 3 VIEWS Alan Ward MD [address] [place] [address] [place] [address] Referral ID Status Reason Start Date Expiration Date V isits Requested Visits Authorized [id number] Closed Auto-Generate d Referral 07/09/2024 08/08/2025 1 1 [facility] for visit Narrative* Diagnostic Procedure Only (Routine) - Closed Specialty Diagnoses / Procedures Referred By Contac t Referred To Contact XR IMAGING Diagnoses Pain in left foot Procedures XR ANKLE GENERAL 3V AP/LAT/OBL LEFT RADEX ANKLE COMPLETE MINIMUM 3 VIEWS Sandeep Iqbal [address] [place] [address] Phone: tel: fax: [place] [address] Referral ID Status Reason Start Date Expiration Date V isits Requested Visits Authorized [id number] Closed Auto-Generate d Referral 12/22/2024 01/21/2026 1 1 [facility] for visit Narrative* MRI/CT (Routine) - Closed Specialty Diagnoses / Procedures Referred By Khoa pelayo Referred To Contact [facility] Diagnoses Posterior tibial tendon dysfunction Soft tissue mass Procedures MRI ANKLE WO/W IVCON LEFT MRI ANY JT LOWER EXTREM W/O & W/CONTRAST MATRL Sandeep Iqbal [address] [place] [address] Phone: tel: fax: Radiology [address] [place] [address] Phone: tel: fax: Referral ID Status Reason Start Date Expiration Date V isits Requested Visits Authorized [id number] Closed Auto-Generate d Referral 01/07/2025 02/05/2025 1 1 [facility] Advance Directives No Advanced Directives Records FoundDocuments on File Type Date Recorded 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 Advance Directive(s) 05/26/2018 10:22 AM Advance Directive Response Recorded Date/ Time Living Will No September 05, 2021 8:43am Power of Picker Machine Operator No September 05 8:43am Documents on File Type Date Recorded 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 Advance Directive(s) 05/26/2018 10:22 AM Advance Directive Response Recorded Date/ Time Living Will No December 17, 2021 8:59am Power of Picker Machine Operator No December 17 8:59am Advance Directive Response Recorded Date/ Time Living Will No August 07 4:26am Power of Picker Machine Operator No August 07, 2022 4:26am Summary Purpose Family History No Family History Records Found Relationship Condition Age at Onset Recorded Date/T haylie mother Cardiac disease Unknown father Hypertension Unknown Kidney disorder Unknown Cardiac disease Unknown Chief Complaint and Reason for Visit Chief Complaint 1 Y FU 10 m fu AFIB Afib, chest pains and GERD [place] CP, A-FIB *MOODISPAW* CP, A-FIB *MOODISPAW* "Think I'm in sinus" (sched for DCCV) [place] PAF Reason for Visit RAMSEY (obstructive sle ep apnea) Essential (primary) hypertension Paroxysmal atrial fibrillation Pure hypercholesterolemia Chest pain Essential (primary) hypertension Paroxysmal atrial fibrillation Pure hypercholesterolemia Chief Complaint Afib, chest pains an d GERD [place] CP, A-FIB *MOODISPAW* CP, A-FIB *MOODISPAW* "Think I'm in sinus" (sched for DCC) [place] PAF diarrhea Reason for Visit Chest pain Essential (primary) hypertension Paroxysmal atrial fibrillation Pure hypercholesterolemia Chief Complaint 1 Y FU 6 M FU (needs 4:00 pm) dizziness DIZZINESS Reason for Visit RAMSEY (obstructive sle ep apnea) Essential (primary) hypertension Paroxysmal atrial fibrillation Pure hypercholesterolemia Chief Complaint Admit Date 1 Y FU June 29, 2024 10 :05am Reason for Visit Admit Date RAMSEY (obstructive sleep apnea) June 10:05am Chief Complaint Admit Date 6 M FU January 11, 2025 7:49 am Reason for Visit Admit Date Essential (primary) hypertension January 112024 7:49am Paroxysmal atrial fibrillation December 7:49am Pure hypercholesterolemia January 11 7:49am Reason for Referral Specialty Diagnoses / Procedures Referred By Khoa pelayo Referred To Contact General Surgery Diagnoses Rectal bleeding External hemorrhoid Procedures CONSULT TO GENERAL SURGERY OFFICE/OUTPATIENT [facility] 60-74 MINUTES Alan Ward MD [address] [place] [address] Referral ID Status Reason Start Date Expiration Date Visits Requested Visits Authorized [id number] Authorized PCP Requested Referral 09/26/2021 09/26/2022 1 1 Specialty Diagnoses / Procedures Referred By Khoa pelayo Referred To Contact CT IMAGING Diagnoses Abdominal discomfort in right lower quadrant Abdominal discomfort in left lower quadrant Right lower quadrant abdominal pain Procedures CT ABD/PEL W IVCON CT ABD & PELVIS W/CONTRAST Alan Ward MD [address] [place] [address] Ct Imaging Referral ID Status Reason Start Date Expiration Date Visits Requested Visits Authorized [id number] Authorized Auto-Generat ed Referral 12/03/2021 01/17/2022 1 1 Specialty Diagnoses / Procedures Referred By Contac t Referred To Contact General Surgery Diagnoses Abdominal discomfort Unilateral inguinal hernia without obstruction or gangrene, recurrence not specified Procedures CONSULT TO GENERAL SURGERY OFFICE/OUTPATIENT [facility] 60-74 MINUTES Alan Ward MD [address] [place] [address] Referral ID Status Reason Start Date Expiration Date Visits Requested Visits Authorized [id number] Authorized PCP Requested Referral 01/14/2022 01/14/2023 1 1 Specialty Diagnoses / Procedures Referred By Contac t Referred To Contact [facility] Diagnoses Benign paroxysmal positional vertigo, unspecified laterality Procedures CONSULT TO PHYSICAL THERAPY PHYSICAL THERAPY EVALUATION HIGH COMPLEX 45 MINS Alan Ward MD [address] [place] [address] [facility] [address] [address] Referral ID Status Reason Start Date Expiration Date Visits Requested Visits Authorized [id number] Pending Review Auto-Generat ed Referral 11/25/2022 11/25/2023 1 1 Specialty Diagnoses / Procedures Referred By Contac t Referred To Contact [facility] Diagnoses Benign paroxysmal positional vertigo, unspecified laterality Procedures PT REHAB FOLLOW UP ORDER THERAPEUTIC EXERCISES RE, EA 15 MIN. Latrice'Stacy Ro, PT [facility] [place] [address] [place] [address] Referral ID Status Reason Start Date Expiration Date Visits Requested Visits Authorized [id number] Pending Review PCP Requested Referral Auto-Generate d Referral 12/20/2022 03/20/2023 1 1 Specialty Diagnoses / Procedures Referred By Contac t Referred To Contact [facility] Diagnoses Tendinitis of shoulder, unspecified laterality Procedures CONSULT TO PHYSICAL THERAPY PHYSICAL THERAPY EVALUATION HIGH COMPLEX 45 MINS Alan Ward MD [address] [place] [address] [facility] [place] [address] [place] [address] Referral ID Status Reason Start Date Expiration Date Visits Requested Visits Authorized [id number] Pending Review Auto-Generat ed Referral 03/08/2024 03/08/2025 1 1 Specialty Diagnoses / Procedures Referred By Contac t Referred To Contact XR IMAGING Diagnoses Tendinitis of shoulder, unspecified laterality Procedures XR SHOULDER GENERAL 3V OR MORE AP/TRUE AP/OTHER RIGHT RADEX SHOULDER COMPLETE MINIMUM 2 VIEWS Alan Ward MD [address] [place] [address] [place] [address] Referral ID Status Reason Start Date Expiration Date V isits Requested Visits Authorized [id number] Closed Auto-Generate d Referral 03/08/2024 04/07/2025 1 1 Specialty Diagnoses / Procedures Referred By Contac t Referred To Contact XR IMAGING Diagnoses Tendinitis of shoulder, unspecified laterality Procedures XR SHOULDER GENERAL 3V OR MORE AP/TRUE AP/OTHER LEFT RADEX SHOULDER COMPLETE MINIMUM 2 VIEWS Alan Ward MD [address] [place] [address] [place] [id number] Referral ID Status Reason Start Date Expiration Date V isits Requested Visits Authorized [id number] Closed Auto-Generate d Referral 03/08/2024 04/07/2025 1 1 Additional Source Comments Source Comments (unrecognize d section and content) In the event this informatio n is protected by the Federal Confidentiality of Alcohol and Drug Abuse Patient Records regulations: The Federal rules restrict any use of the information to criminally investigate or prosecute any alcohol or drug abuse patient.[facility] [place] the event this information is protected by the Federal Confidentiality of Alcohol and Drug Abuse Patient Records regulations: The Federal rules restrict any use of the information to criminally investigate or prosecute any alcohol or drug abuse patient.[facility] [place]In the event this information is protected by the Federal Confidentiality of Alcohol and Drug Abuse Patient Records regulations: The Federal rules restrict any use of the information to criminally investigate or prosecute any alcohol or drug abuse patient.[facility] [place]In the event this information is protected by the Federal Confidentiality of Alcohol and Drug Abuse Patient Records regulations: The Federal rules restrict any use of the information to criminally investigate or prosecute any alcohol or drug abuse patient.[facility] [place]In the event this information is protected by the Federal Confidentiality of Alcohol and Drug Abuse Patient Records regulations: The Federal rules restrict any use of the information to criminally investigate or prosecute any alcohol or drug abuse patient.[facility] [place]In the event this information is protected by the Federal Confidentiality of Alcohol and Drug Abuse Patient Records regulations: The Federal rules restrict any use of the information to criminally investigate or prosecute any alcohol or drug abuse patient.[facility] [place]In the event this information is protected by the Federal Confidentiality of Alcohol and Drug Abuse Patient Records regulations: The Federal rules restrict any use of the information to criminally investigate or prosecute any alcohol or drug abuse patient.[facility] [place]In the event this information is protected by the Federal Confidentiality of Alcohol and Drug Abuse Patient Records regulations: The Federal rules restrict any use of the information to criminally investigate or prosecute any alcohol or drug abuse patient.[facility] [place]In the event this information is protected by the Federal Confidentiality of Alcohol and Drug Abuse Patient Records regulations: The Federal rules restrict any use of the information to criminally investigate or prosecute any alcohol or drug abuse patient.[facility] [place]In the event this information is protected by the Federal Confidentiality of Alcohol and Drug Abuse Patient Records regulations: The Federal rules restrict any use of the information to criminally investigate or prosecute any alcohol or drug abuse patient.[facility] [place]In the event this information is protected by the Federal Confidentiality of Alcohol and Drug Abuse Patient Records regulations: The Federal rules restrict any use of the information to criminally investigate or prosecute any alcohol or drug abuse patient.[facility] [place]In the event this information is protected by the Federal Confidentiality of Alcohol and Drug Abuse Patient Records regulations: The Federal rules restrict any use of the information to criminally investigate or prosecute any alcohol or drug abuse patient.[facility] [place]In the event this information is protected by the Federal Confidentiality of Alcohol and Drug Abuse Patient Records regulations: The Federal rules restrict any use of the information to criminally investigate or prosecute any alcohol or drug abuse patient.[facility] [place]In the event this information is protected by the Federal Confidentiality of Alcohol and Drug Abuse Patient Records regulations: The Federal rules restrict any use of the information to criminally investigate or prosecute any alcohol or drug abuse patient.[facility] [place]In the event this information is protected by the Federal Confidentiality of Alcohol and Drug Abuse Patient Records regulations: The Federal rules restrict any use of the information to criminally investigate or prosecute any alcohol or drug abuse patient.[facility] [place]In the event this information is protected by the Federal Confidentiality of Alcohol and Drug Abuse Patient Records regulations: The Federal rules restrict any use of the information to criminally investigate or prosecute any alcohol or drug abuse patient.[facility] [place]In the event this information is protected by the Federal Confidentiality of Alcohol and Drug Abuse Patient Records regulations: The Federal rules restrict any use of the information to criminally investigate or prosecute any alcohol or drug abuse patient.[facility] [place]In the event this information is protected by the Federal Confidentiality of Alcohol and Drug Abuse Patient Records regulations: The Federal rules restrict any use of the information to criminally investigate or prosecute any alcohol or drug abuse patient.[facility] [place]In the event this information is protected by the Federal Confidentiality of Alcohol and Drug Abuse Patient Records regulations: The Federal rules restrict any use of the information to criminally investigate or prosecute any alcohol or drug abuse patient.[facility] [place]In the event this information is protected by the Federal Confidentiality of Alcohol and Drug Abuse Patient Records regulations: The Federal rules restrict any use of the information to criminally investigate or prosecute any alcohol or drug abuse patient.[facility] [place]In the event this information is protected by the Federal Confidentiality of Alcohol and Drug Abuse Patient Records regulations: The Federal rules restrict any use of the information to criminally investigate or prosecute any alcohol or drug abuse patient.[facility] [place]In the event this information is protected by the Federal Confidentiality of Alcohol and Drug Abuse Patient Records regulations: The Federal rules restrict any use of the information to criminally investigate or prosecute any alcohol or drug abuse patient.[facility] [place]In the event this information is protected by the Federal Confidentiality of Alcohol and Drug Abuse Patient Records regulations: The Federal rules restrict any use of the information to criminally investigate or prosecute any alcohol or drug abuse patient.[facility] [place]In the event this information is protected by the Federal Confidentiality of Alcohol and Drug Abuse Patient Records regulations: The Federal rules restrict any use of the information to criminally investigate or prosecute any alcohol or drug abuse patient.[facility] [place]In the event this information is protected by the Federal Confidentiality of Alcohol and Drug Abuse Patient Records regulations: The Federal rules restrict any use of the information to criminally investigate or prosecute any alcohol or drug abuse patient.[facility] [place]In the event this information is protected by the Federal Confidentiality of Alcohol and Drug Abuse Patient Records regulations: The Federal rules restrict any use of the information to criminally investigate or prosecute any alcohol or drug abuse patient.[facility] [place]In the event this information is protected by the Federal Confidentiality of Alcohol and Drug Abuse Patient Records regulations: The Federal rules restrict any use of the information to criminally investigate or prosecute any alcohol or drug abuse patient.[facility] [place]In the event this information is protected by the Federal Confidentiality of Alcohol and Drug Abuse Patient Records regulations: The Federal rules restrict any use of the information to criminally investigate or prosecute any alcohol or drug abuse patient.[facility] [place]In the event this information is protected by the Federal Confidentiality of Alcohol and Drug Abuse Patient Records regulations: The Federal rules restrict any use of the information to criminally investigate or prosecute any alcohol or drug abuse patient.[facility] [place]In the event this information is protected by the Federal Confidentiality of Alcohol and Drug Abuse Patient Records regulations: The Federal rules restrict any use of the information to criminally investigate or prosecute any alcohol or drug abuse patient.[facility] [place]In the event this information is protected by the Federal Confidentiality of Alcohol and Drug Abuse Patient Records regulations: The Federal rules restrict any use of the information to criminally investigate or prosecute any alcohol or drug abuse patient.[facility] [place]In the event this information is protected by the Federal Confidentiality of Alcohol and Drug Abuse Patient Records regulations: The Federal rules restrict any use of the information to criminally investigate or prosecute any alcohol or drug abuse patient.[facility] [place]In the event this information is protected by the Federal Confidentiality of Alcohol and Drug Abuse Patient Records regulations: The Federal rules restrict any use of the information to criminally investigate or prosecute any alcohol or drug abuse patient.[facility] [place]In the event this information is protected by the Federal Confidentiality of Alcohol and Drug Abuse Patient Records regulations: The Federal rules restrict any use of the information to criminally investigate or prosecute any alcohol or drug abuse patient.[facility] [place]In the event this information is protected by the Federal Confidentiality of Alcohol and Drug Abuse Patient Records regulations: The Federal rules restrict any use of the information to criminally investigate or prosecute any alcohol or drug abuse patient.[facility] [place]In the event this information is protected by the Federal Confidentiality of Alcohol and Drug Abuse Patient Records regulations: The Federal rules restrict any use of the information to criminally investigate or prosecute any alcohol or drug abuse patient.[facility] [place]In the event this information is protected by the Federal Confidentiality of Alcohol and Drug Abuse Patient Records regulations: The Federal rules restrict any use of the information to criminally investigate or prosecute any alcohol or drug abuse patient.[facility] [place]In the event this information is protected by the Federal Confidentiality of Alcohol and Drug Abuse Patient Records regulations: The Federal rules restrict any use of the information to criminally investigate or prosecute any alcohol or drug abuse patient.[facility] [place]In the event this information is protected by the Federal Confidentiality of Alcohol and Drug Abuse Patient Records regulations: The Federal rules restrict any use of the information to criminally investigate or prosecute any alcohol or drug abuse patient.[facility] [place]In the event this information is protected by the Federal Confidentiality of Alcohol and Drug Abuse Patient Records regulations: The Federal rules restrict any use of the information to criminally investigate or prosecute any alcohol or drug abuse patient.[facility] [place]In the event this information is protected by the Federal Confidentiality of Alcohol and Drug Abuse Patient Records regulations: The Federal rules restrict any use of the information to criminally investigate or prosecute any alcohol or drug abuse patient.[facility] [place]In the event this information is protected by the Federal Confidentiality of Alcohol and Drug Abuse Patient Records regulations: The Federal rules restrict any use of the information to criminally investigate or prosecute any alcohol or drug abuse patient.[facility] [place]In the event this information is protected by the Federal Confidentiality of Alcohol and Drug Abuse Patient Records regulations: The Federal rules restrict any use of the information to criminally investigate or prosecute any alcohol or drug abuse patient.[facility] [place]In the event this information is protected by the Federal Confidentiality of Alcohol and Drug Abuse Patient Records regulations: The Federal rules restrict any use of the information to criminally investigate or prosecute any alcohol or drug abuse patient.[facility] [place]In the event this information is protected by the Federal Confidentiality of Alcohol and Drug Abuse Patient Records regulations: The Federal rules restrict any use of the information to criminally investigate or prosecute any alcohol or drug abuse patient.[facility] [place]In the event this information is protected by the Federal Confidentiality of Alcohol and Drug Abuse Patient Records regulations: The Federal rules restrict any use of the information to criminally investigate or prosecute any alcohol or drug abuse patient.[facility] [place]In the event this information is protected by the Federal Confidentiality of Alcohol and Drug Abuse Patient Records regulations: The Federal rules restrict any use of the information to criminally investigate or prosecute any alcohol or drug abuse patient.[facility] [place]In the event this information is protected by the Federal Confidentiality of Alcohol and Drug Abuse Patient Records regulations: The Federal rules restrict any use of the information to criminally investigate or prosecute any alcohol or drug abuse patient.[facility] [place]In the event this information is protected by the Federal Confidentiality of Alcohol and Drug Abuse Patient Records regulations: The Federal rules restrict any use of the information to criminally investigate or prosecute any alcohol or drug abuse patient.[facility] [place]In the event this information is protected by the Federal Confidentiality of Alcohol and Drug Abuse Patient Records regulations: The Federal rules restrict any use of the information to criminally investigate or prosecute any alcohol or drug abuse patient.[facility] [place]In the event this information is protected by the Federal Confidentiality of Alcohol and Drug Abuse Patient Records regulations: The Federal rules restrict any use of the information to criminally investigate or prosecute any alcohol or drug abuse patient.[facility] [place]In the event this information is protected by the Federal Confidentiality of Alcohol and Drug Abuse Patient Records regulations: The Federal rules restrict any use of the information to criminally investigate or prosecute any alcohol or drug abuse patient.[facility] [place]In the event this information is protected by the Federal Confidentiality of Alcohol and Drug Abuse Patient Records regulations: The Federal rules restrict any use of the information to criminally investigate or prosecute any alcohol or drug abuse patient.[facility] [place]In the event this information is protected by the Federal Confidentiality of Alcohol and Drug Abuse Patient Records regulations: The Federal rules restrict any use of the information to criminally investigate or prosecute any alcohol or drug abuse patient.[facility] [place]In the event this information is protected by the Federal Confidentiality of Alcohol and Drug Abuse Patient Records regulations: The Federal rules restrict any use of the information to criminally investigate or prosecute any alcohol or drug abuse patient.[facility] [place]In the event this information is protected by the Federal Confidentiality of Alcohol and Drug Abuse Patient Records regulations: The Federal rules restrict any use of the information to criminally investigate or prosecute any alcohol or drug abuse patient.[facility] [place]In the event this information is protected by the Federal Confidentiality of Alcohol and Drug Abuse Patient Records regulations: The Federal rules restrict any use of the information to criminally investigate or prosecute any alcohol or drug abuse patient.[facility] [place]In the event this information is protected by the Federal Confidentiality of Alcohol and Drug Abuse Patient Records regulations: The Federal rules restrict any use of the information to criminally investigate or prosecute any alcohol or drug abuse patient.[facility] [place]In the event this information is protected by the Federal Confidentiality of Alcohol and Drug Abuse Patient Records regulations: The Federal rules restrict any use of the information to criminally investigate or prosecute any alcohol or drug abuse patient.[facility] [place]In the event this information is protected by the Federal Confidentiality of Alcohol and Drug Abuse Patient Records regulations: The Federal rules restrict any use of the information to criminally investigate or prosecute any alcohol or drug abuse patient.[facility] [place]In the event this information is protected by the Federal Confidentiality of Alcohol and Drug Abuse Patient Records regulations: The Federal rules restrict any use of the information to criminally investigate or prosecute any alcohol or drug abuse patient.[facility] [place]In the event this information is protected by the Federal Confidentiality of Alcohol and Drug Abuse Patient Records regulations: The Federal rules restrict any use of the information to criminally investigate or prosecute any alcohol or drug abuse patient.[facility] [place]In the event this information is protected by the Federal Confidentiality of Alcohol and Drug Abuse Patient Records regulations: The Federal rules restrict any use of the information to criminally investigate or prosecute any alcohol or drug abuse patient.[facility] [place]In the event this information is protected by the Federal Confidentiality of Alcohol and Drug Abuse Patient Records regulations: The Federal rules restrict any use of the information to criminally investigate or prosecute any alcohol or drug abuse patient.[facility] [place]In the event this information is protected by the Federal Confidentiality of Alcohol and Drug Abuse Patient Records regulations: The Federal rules restrict any use of the information to criminally investigate or prosecute any alcohol or drug abuse patient.[facility] [place]In the event this information is protected by the Federal Confidentiality of Alcohol and Drug Abuse Patient Records regulations: The Federal rules restrict any use of the information to criminally investigate or prosecute any alcohol or drug abuse patient.[facility] [place]In the event this information is protected by the Federal Confidentiality of Alcohol and Drug Abuse Patient Records regulations: The Federal rules restrict any use of the information to criminally investigate or prosecute any alcohol or drug abuse patient.[facility] [place]In the event this information is protected by the Federal Confidentiality of Alcohol and Drug Abuse Patient Records regulations: The Federal rules restrict any use of the information to criminally investigate or prosecute any alcohol or drug abuse patient.[facility] [place]In the event this information is protected by the Federal Confidentiality of Alcohol and Drug Abuse Patient Records regulations: The Federal rules restrict any use of the information to criminally investigate or prosecute any alcohol or drug abuse patient.[facility] [place]In the event this information is protected by the Federal Confidentiality of Alcohol and Drug Abuse Patient Records regulations: The Federal rules restrict any use of the information to criminally investigate or prosecute any alcohol or drug abuse patient.[facility] [place]In the event this information is protected by the Federal Confidentiality of Alcohol and Drug Abuse Patient Records regulations: The Federal rules restrict any use of the information to criminally investigate or prosecute any alcohol or drug abuse patient.[facility] [place]In the event this information is protected by the Federal Confidentiality of Alcohol and Drug Abuse Patient Records regulations: The Federal rules restrict any use of the information to criminally investigate or prosecute any alcohol or drug abuse patient.[facility] [place]In the event this information is protected by the Federal Confidentiality of Alcohol and Drug Abuse Patient Records regulations: The Federal rules restrict any use of the information to criminally investigate or prosecute any alcohol or drug abuse patient.[facility] [place]In the event this information is protected by the Federal Confidentiality of Alcohol and Drug Abuse Patient Records regulations: The Federal rules restrict any use of the information to criminally investigate or prosecute any alcohol or drug abuse patient.[facility] [place]In the event this information is protected by the Federal Confidentiality of Alcohol and Drug Abuse Patient Records regulations: The Federal rules restrict any use of the information to criminally investigate or prosecute any alcohol or drug abuse patient.[facility] [place]In the event this information is protected by the Federal Confidentiality of Alcohol and Drug Abuse Patient Records regulations: The Federal rules restrict any use of the information to criminally investigate or prosecute any alcohol or drug abuse patient.[facility] [place]In the event this information is protected by the Federal Confidentiality of Alcohol and Drug Abuse Patient Records regulations: The Federal rules restrict any use of the information to criminally investigate or prosecute any alcohol or drug abuse patient.[facility] [place] the event this information is protected by the Federal Confidentiality of Alcohol and Drug Abuse Patient Records regulations: The Federal rules restrict any use of the information to criminally investigate or prosecute any alcohol or drug abuse patient.[facility] [place]In the event this information is protected by the Federal Confidentiality of Alcohol and Drug Abuse Patient Records regulations: The Federal rules restrict any use of the information to criminally investigate or prosecute any alcohol or drug abuse patient.[facility] [place]In the event this information is protected by the Federal Confidentiality of Alcohol and Drug Abuse Patient Records regulations: The Federal rules restrict any use of the information to criminally investigate or prosecute any alcohol or drug abuse patient.[facility] [place] the event this information is protected by the Federal Confidentiality of Alcohol and Drug Abuse Patient Records regulations: The Federal rules restrict any use of the information to criminally investigate or prosecute any alcohol or drug abuse patient.[facility] [place]In the event this information is protected by the Federal Confidentiality of Alcohol and Drug Abuse Patient Records regulations: The Federal rules restrict any use of the information to criminally investigate or prosecute any alcohol or drug abuse patient.[facility] [place]In the event this information is protected by the Federal Confidentiality of Alcohol and Drug Abuse Patient Records regulations: The Federal rules restrict any use of the information to criminally investigate or prosecute any alcohol or drug abuse patient.[facility] [place]In the event this information is protected by the Federal Confidentiality of Alcohol and Drug Abuse Patient Records regulations: The Federal rules restrict any use of the information to criminally investigate or prosecute any alcohol or drug abuse patient.[facility] [place]In the event this information is protected by the Federal Confidentiality of Alcohol and Drug Abuse Patient Records regulations: The Federal rules restrict any use of the information to criminally investigate or prosecute any alcohol or drug abuse patient.[facility] [place]In the event this information is protected by the Federal Confidentiality of Alcohol and Drug Abuse Patient Records regulations: The Federal rules restrict any use of the information to criminally investigate or prosecute any alcohol or drug abuse patient.[facility] [place]In the event this information is protected by the Federal Confidentiality of Alcohol and Drug Abuse Patient Records regulations: The Federal rules restrict any use of the information to criminally investigate or prosecute any alcohol or drug abuse patient.[facility] [place]In the event this information is protected by the Federal Confidentiality of Alcohol and Drug Abuse Patient Records regulations: The Federal rules restrict any use of the information to criminally investigate or prosecute any alcohol or drug abuse patient.[facility] [place]In the event this information is protected by the Federal Confidentiality of Alcohol and Drug Abuse Patient Records regulations: The Federal rules restrict any use of the information to criminally investigate or prosecute any alcohol or drug abuse patient.[facility] [place]In the event this information is protected by the Federal Confidentiality of Alcohol and Drug Abuse Patient Records regulations: The Federal rules restrict any use of the information to criminally investigate or prosecute any alcohol or drug abuse patient.[facility] [place]In the event this information is protected by the Federal Confidentiality of Alcohol and Drug Abuse Patient Records regulations: The Federal rules restrict any use of the information to criminally investigate or prosecute any alcohol or drug abuse patient.[facility] [place]In the event this information is protected by the Federal Confidentiality of Alcohol and Drug Abuse Patient Records regulations: The Federal rules restrict any use of the information to criminally investigate or prosecute any alcohol or drug abuse patient.[facility] OhioIn the event this information is protected by the Federal Confidentiality of Alcohol and Drug Abuse Patient Records regulations: The Federal rules restrict any use of the information to criminally investigate or prosecute any alcohol or drug abuse patient.[facility] [place] Care Teams (unrecognized sec tion and content) Bilingual Branch Manager Relationship Specialty Start Date End Date Alan Ward MD [address] [place] [address] PCP - General Family Practice 08/27/12 Diaz Gonzalez [address] [place] [address] Specialty Professional Soccer Player Cardiology 05/01/21 Juan Zapata [address] [place] [address] Specialty Professional Soccer Player Internal Medicine 05/02/21 Bilingual Branch Manager Relationship Specialty Start Date End Date Alan Ward MD [address] [facility] [address] PCP - General Family Practice 08/27/12 Diaz Gonzalez [address] [place] [address] Specialty Professional Soccer Player Cardiology 05/01/21 Juan Zapata [address] [place] [address] Specialty Professional Soccer Player Internal Medicine 05/02/21 Bilingual Branch Manager Relationship Specialty Start Date End Date Alan Ward MD [address] [facility] [place] [address] PCP - General Family Practice 08/27/12 Diaz Gonzalez [address] [place] [address] Specialty Professional Soccer Player Cardiology 05/01/21 Juan Zapata [address] [place] [address] Specialty Professional Soccer Player Internal Medicine 05/02/21 Bilingual Branch Manager Relationship Specialty Start Date End Date Alan Ward MD [address] [facility] [place] [address] PCP - General Family Practice 08/27/12 Diaz Gonzalez [address] [place] [address] Specialty Professional Soccer Player Cardiology 05/01/21 Juan Zapata [address] [place] [address] Specialty Professional Soccer Player Internal Medicine 05/02/21 Bilingual Branch Manager Relationship Specialty Start Date End Date Alan Ward MD [address] [facility] [place] [address] PCP - General Family Practice 08/27/12 Diza Gonzalez [address] [place] [address] Specialty Professional Soccer Player Cardiology 05/01/21 Juan Zapata [address] [place] [address] Specialty Professional Soccer Player Internal Medicine 05/02/21 Bilingual Branch Manager Relationship Specialty Start Date End Date Alan Ward MD [address] [facility] [place] [address] PCP - General Family Practice 08/27/12 Diaz Gonzalez [address] [place] [address] Specialty Professional Soccer Player Cardiology 05/01/21 Juan Zapata [address] [place] [address] Specialty Professional Soccer Player Internal Medicine 05/02/21 Bilingual Branch Manager Relationship Specialty Start Date End Date Alan Ward MD [address] [facility] [place] [address] PCP - General Family Practice 08/27/12 Diaz Gonzalez [address] [place] [address] Specialty Professional Soccer Player Cardiology 05/01/21 Juan Zapata [address] [place] [address] Specialty Professional Soccer Player Internal Medicine 05/02/21 Bilingual Branch Manager Relationship Specialty Start Date End Date Alan Ward MD [address] [facility] [address] PCP - General Family Practice 08/27/12 Diaz Gonzalez [address] [place] [address] Specialty Professional Soccer Player Cardiology 05/01/21 Juan Zapata [address] [place] [address] Specialty Professional Soccer Player Internal Medicine 05/02/21 Bilingual Branch Manager Relationship Specialty Start Date End Date Alan Ward MD [address] [facility] [place] [address] PCP - General Family Practice 08/27/12 Diaz Gonzalez [address] [place] [address] Specialty Professional Soccer Player Cardiology 05/01/[address] Juan [address]apata [address] [place] [address] Specialty Professional Soccer Player Internal Medicine 05/02/21 Bilingual Branch Manager Relationship Specialty Start Date End Date Alan Ward MD [address] [facility] [place] [address] PCP - General Family Practice 08/27/12 Diaz Gonzalez [address] [place] [address] Specialty Professional Soccer Player Cardiology 05/01/21 Juan Zapata [address] [place] [address] Specialty Professional Soccer Player Internal Medicine 05/02/21 Bilingual Branch Manager Relationship Specialty Start Date End Date Alan Ward MD [address] [facility] [address] PCP - General Family Practice 08/27/12 Diaz Gonzalez [address] [place] [address] Specialty Professional Soccer Player Cardiology 05/01/[address] Juan [address]apata [address] [place] [address] Specialty Professional Soccer Player Internal Medicine 05/02/21 Bilingual Branch Manager Relationship Specialty Start Date End Date Alan Ward MD [address] [facility] [address] PCP - General Family Practice 08/27/12 Diaz Gonzalez [address] [place] [address] Specialty Professional Soccer Player Cardiology 05/01/21 Juan Zapata [address] [place] [address] Specialty Professional Soccer Player Internal Medicine 05/02/21 Bilingual Branch Manager Relationship Specialty Start Date End Date Alan Ward MD [address] [facility] [address] PCP - General Family Medicine 08/27/12 Diaz Gonzalez [address] [place] [address] Specialty Professional Soccer Player Cardiology 05/01/21 Juan Zapata [address] [place] [address] Specialty Professional Soccer Player Internal Medicine 05/02/21 Bilingual Branch Manager Relationship Specialty Start Date End Date Alan Ward MD [address] [facility] [address] PCP - General Family Medicine 08/27/12 Diaz Gonzalez [address] [place] [address] Specialty Professional Soccer Player Cardiology 05/01/21 Juan Zapata [address] [place] [address] Specialty Professional Soccer Player Internal Medicine 05/02/21 Bilingual Branch Manager Relationship Specialty Start Date End Date Alan Ward MD [address] [facility] [place] [address] PCP - General Family Medicine 08/27/12 Diaz Gonzalez [address] [place] [address] Specialty Professional Soccer Player Cardiology 05/01/21 Juan Zapata [address] [place] [address] Specialty Professional Soccer Player Internal Medicine 05/02/21 Bilingual Branch Manager Relationship Specialty Start Date End Date Alan Ward MD [address] [facility] [place] [address] PCP - General Family Medicine 08/27/12 Diaz Gonzalez [address] [place] [address] Specialty Professional Soccer Player Cardiology 05/01/21 Juan Zapata [address] [place] [address] Specialty Professional Soccer Player Internal Medicine 05/02/21 Bilingual Branch Manager Relationship Specialty Start Date End Date Alan Ward MD [address] [facility] [place] [address] PCP - General Family Medicine 08/27/12 Diaz Gonzalez [address] [place] [address] Specialty Professional Soccer Player Cardiology 05/01/21 Juan Zapata [address] [place] [address] Specialty Professional Soccer Player Internal Medicine 05/02/21 Bilingual Branch Manager Relationship Specialty Start Date End Date Alan Ward MD [address] [facility] [place] [address] PCP - General Family Medicine 08/27/12 Diaz Gonzalez [address] [place] [address] Specialty Professional Soccer Player Cardiology 05/01/21 Juan Zapata [address] [place] [address] Specialty Professional Soccer Player Internal Medicine 05/02/21 Bilingual Branch Manager Relationship Specialty Start Date End Date Alan Ward MD [address] [facility] [place] [address] PCP - General Family Medicine 08/27/12 Diaz Gonzalez [address] [place] [address] Specialty Professional Soccer Player Cardiology 05/01/21 Juan Zapata [address] [place] [address] Specialty Professional Soccer Player Internal Medicine 05/02/21 Team Status: Active Member Role Status Dates Dr. Alan Ward MD Family Provider Active Dr. Alan Ward MD Primary Care Provider Active Team Status: Inactive Member Role Status Dates Dr. Alan Ward MD Primary Care Provider, Referring Provider Active Dr. Juan Zapata DO Attending Provider Active Team Status: Inactive Member Role Status Dates Dr. Alan Ward MD Primary Care Provider, Referring Provider Active Gerardo Guerrier LUBE WORKER, LUBE WORKER-C Attending Provider Active Team Status: Inactive Member Role Status Dates Dr. Alan Ward MD Primary Care Provider Active Dr. Avila Orellana DO Attending Provider, Emergency Pr ovider Active Team Status: Inactive Member Role Status Dates Dr. Alan Ward MD Primary Care Provider Active Dr. Severiano Lester MD Attending Provider, Referring P benjamin Active Bilingual Branch Manager Relationship Specialty Start Date End Date Alan Ward MD [address] [facility] [place] [address] PCP - General Family Medicine 08/27/12 Diaz Gonzalez [address] [place] [address] Specialty Professional Soccer Player Cardiology 05/01/21 Juan Zapata [address] [place] [address] Specialty Professional Soccer Player Internal Medicine 05/02/21 Bilingual Branch Manager Relationship Specialty Start Date End Date Alan Ward MD [address] [facility] [place] [address] PCP - General Family Medicine 08/27/12 Diaz Gonzalez [address] [place] [address] Specialty Professional Soccer Player Cardiology 05/01/21 Juan Zapata [address] [place] [address] Specialty Professional Soccer Player Internal Medicine 05/02/21 Bilingual Branch Manager Relationship Specialty Start Date End Date Alan Ward MD [address] [facility] [place] [address] PCP - General Family Medicine 08/27/12 Diaz Gonzalez [address] [place] [address] Specialty Professional Soccer Player Cardiology 05/01/21 Juan Zapata [address] [place] [address] Specialty Professional Soccer Player Internal Medicine 05/02/21 Bilingual Branch Manager Relationship Specialty Start Date End Date Alan Ward MD [address] [facility] [place] [address] PCP - General Family Medicine 08/27/12 Diaz Gonzalez [address] [place] [address] Specialty Professional Soccer Player Cardiology 05/01/21 Juan Zapata [address] [place] [address] Specialty Professional Soccer Player Internal Medicine 05/02/21 Bilingual Branch Manager Relationship Specialty Start Date End Date Alan Wrad MD [address] [facility] [place] [address] PCP - General Family Medicine 08/27/12 Diaz Gonzalez [address] [place] [address] Specialty Professional Soccer Player Cardiology 05/01/21 Juan Zapata [address] [place] [address] Specialty Professional Soccer Player Internal Medicine 05/02/21 Bilingual Branch Manager Relationship Specialty Start Date End Date Alan Ward MD [address] [facility] [place] [address] PCP - General Family Medicine 08/27/12 Diaz Gonzalez [address] [place] [address] Specialty Professional Soccer Player Cardiology 05/01/21 Juan Zapata [address] [place] [address] Specialty Professional Soccer Player Internal Medicine 05/02/21 Bilingual Branch Manager Relationship Specialty Start Date End Date Alan Ward MD [address] [facility] [place] [address] PCP - General Family Medicine 08/27/12 Diaz Gonzalez [address] [place] [address] Specialty Professional Soccer Player Cardiology 05/01/21 Juan Zapata [address] [place] [address] Specialty Professional Soccer Player Internal Medicine 05/02/21 Bilingual Branch Manager Relationship Specialty Start Date End Date Alan Ward MD [address] [facility] [place] [address] PCP - General Family Medicine 08/27/12 Diaz Gonzalez [address] [place] [address] Specialty Professional Soccer Player Cardiology 05/01/21 Juan Zapata [address] [place] [address] Specialty Professional Soccer Player Internal Medicine 05/02/21 Bilingual Branch Manager Relationship Specialty Start Date End Date Alan Ward MD [address] [facility] [address] PCP - General Family Medicine 08/27/12 Diaz Gonzalez [address] [place] [address] Specialty Professional Soccer Player Cardiology 05/01/21 Juan Zapata [address] [place] [address] Specialty Professional Soccer Player Internal Medicine 05/02/21 Bilingual Branch Manager Relationship Specialty Start Date End Date Alan Ward MD [address] [facility] [address] PCP - General Family Medicine 08/27/12 Diaz Gonzalez [address] [place] [address] Specialty Professional Soccer Player Cardiology 05/01/21 Juan Zapata [address] [place] [address] Specialty Professional Soccer Player Internal Medicine 05/02/21 Bilingual Branch Manager Relationship Specialty Start Date End Date Alan Ward MD [address] [facility] [address] PCP - General Family Medicine 08/27/12 Diaz Gonzalez [address] [place] [address] Specialty Professional Soccer Player Cardiology 05/01/21 Juan Zapata [address] [place] [address] Specialty Professional Soccer Player Internal Medicine 05/02/21 Bilingual Branch Manager Relationship Specialty Start Date End Date Alan Ward MD [address] [facility] [place] [address] PCP - General Family Medicine 08/27/12 Diaz Gonzalez [address] [place] [address], [place] [address] Specialty Professional Soccer Player Cardiology 05/01/21 Juan Zapata [address] [place] [address] Specialty Professional Soccer Player Internal Medicine 05/02/21 Bilingual Branch Manager Relationship Specialty Start Date End Date Alan Ward MD [address] [facility] [place] [address] PCP - General Family Medicine 08/27/12 Diaz Gonzalez MD [address] [place] [address], [place] [address] Specialty Professional Soccer Player Cardiology 05/01/21 Juan Zapata [address] [place] [address] Specialty Professional Soccer Player Internal Medicine 05/02/21 Bilingual Branch Manager Relationship Specialty Start Date End Date Alan Ward MD [address] [facility] [place] [address] PCP - General Family Medicine 08/27/12 Diaz Gonzalez MD [address] [place] [address] Specialty Professional Soccer Player Cardiology 05/01/21 Juan Zapata [address] [place] [address] Specialty Professional Soccer Player Internal Medicine 05/02/21 Bilingual Branch Manager Relationship Specialty Start Date End Date Alan Ward MD [address] [facility] [place] [address] PCP - General Family Medicine 08/27/12 Diaz Gonzalez MD [address] [place] [address] Specialty Professional Soccer Player Cardiology 05/01/21 Juan Zapata [address] [place] [address] Specialty Professional Soccer Player Internal Medicine 05/02/21 Bilingual Branch Manager Relationship Specialty Start Date End Date Alan Ward MD [address] [facility] [place] [place] [address] PCP - General Family Medicine 08/27/12 Diaz Gonzalez MD [address] [place] [address] Specialty Professional Soccer Player Cardiology 05/01/21 Juan Zapata [address] [place] [address] Specialty Professional Soccer Player Internal Medicine 05/02/21 Bilingual Branch Manager Relationship Specialty Start Date End Date Alan Ward MD [address] [facility] [place] [place] [address] PCP - General Family Medicine 08/27/12 Diaz Gonzalez MD [address] [place] [address] Specialty Professional Soccer Player Cardiology 05/01/21 Juan Zapata [address] [place] [address] Specialty Professional Soccer Player Internal Medicine 05/02/21 Bilingual Branch Manager Relationship Specialty Start Date End Date Alan Ward MD [address] [facility] [place] [address] PCP - General Family Medicine 08/27/12 Diaz Gonzalez MD [address] [place] [address] Specialty Professional Soccer Player Cardiology 05/01/21 Juan Zapata [address] [place] [address] Specialty Professional Soccer Player Internal Medicine 05/02/21 Bilingual Branch Manager Relationship Specialty Start Date End Date Alan Ward MD [address] [facility] [place] [address] PCP - General Family Medicine 08/27/12 Diaz Gonzalez MD [address] [place] [address] Specialty Professional Soccer Player Cardiology 05/01/21 Juan Zapata [address] [place] [address] Specialty Professional Soccer Player Internal Medicine 05/02/21 Bilingual Branch Manager Relationship Specialty Start Date End Date Alan Ward MD [address] [facility] [address] PCP - General Family Medicine 08/27/12 Diaz Gonzalez MD [address] [place] [address] Specialty Professional Soccer Player Cardiology 05/01/[address] Juan Zapata [address] [place] [address] Specialty Professional Soccer Player Internal Medicine 05/02/21 Bilingual Branch Manager Relationship Specialty Start Date End Date Alan Ward MD [address] [facility] [address] PCP - General Family Medicine 08/27/12 Diaz Gonzalez MD [address] [place] [address] Specialty Professional Soccer Player Cardiology 05/01/[address]apata [address] [place] [address] Specialty Professional Soccer Player Internal Medicine 05/02/21 Bilingual Branch Manager Relationship Specialty Start Date End Date Alan Ward MD [address] [facility] [address] PCP - General Family Medicine 08/27/12 Diaz Gonzalez MD [address] [place] [address] Specialty Professional Soccer Player Cardiology 05/01/21 Juan Zapata [address] [place] [address] Specialty Professional Soccer Player Internal Medicine 05/02/21 Bilingual Branch Manager Relationship Specialty Start Date End Date Alan Ward MD [address] [facility] [place] [address] PCP - General Family Medicine 08/27/12 Diaz Gonzalez MD [address] [place] [address] Specialty Professional Soccer Player Cardiology 05/01/21 Juan Zapata [address] [place] [address] Specialty Professional Soccer Player Internal Medicine 05/02/21 Bilingual Branch Manager Relationship Specialty Start Date End Date Alan Ward MD [address] [facility] [place] [address] PCP - General Family Medicine 08/27/12 Diaz Gonzalez MD [address] [place] [address] Specialty Professional Soccer Player Cardiology 05/01/21 Juan Zapata [address] [place] [address] Specialty Professional Soccer Player Internal Medicine 05/02/21 Bilingual Branch Manager Relationship Specialty Start Date End Date Alan Ward MD [address] [facility] [place] [address] PCP - General Family Medicine 08/27/12 Diaz Gonzalez MD [address] [place] [address] Specialty Professional Soccer Player Cardiology 05/01/21 Juan Zapata [address] [place] [address] Specialty Professional Soccer Player Internal Medicine 05/02/21 Bilingual Branch Manager Relationship Specialty Start Date End Date Alan Ward MD [address] [facility] [place] [address] PCP - General Family Medicine 08/27/12 Diaz Gonzalez MD [address] [place] [address] Specialty Professional Soccer Player Cardiology 05/01/21 Juan Zapata [address] [place] [address] Specialty Professional Soccer Player Internal Medicine 05/02/21 Bilingual Branch Manager Relationship Specialty Start Date End Date Alan Ward MD [address] [facility] [place] [address] PCP - General Family Medicine 08/27/12 Diaz Gonzalez MD [address] [place] [address] Specialty Professional Soccer Player Cardiology 05/01/21 Juan Zapata [address] [address] Specialty Professional Soccer Player Internal Medicine 05/02/21 Bilingual Branch Manager Relationship Specialty Start Date End Date Alan Ward MD [address] [facility] [place] [address] PCP - General Family Medicine 08/27/12 Diaz Gonzalez MD [address] [place] [address] Specialty Professional Soccer Player Cardiology 05/01/21 Juan Zapata [address] [place] [address] Specialty Professional Soccer Player Internal Medicine 05/02/21 Bilingual Branch Manager Relationship Specialty Start Date End Date Alan Ward MD [address] [facility] [place] [address] PCP - General Family Medicine 08/27/12 Diaz Gonzalez MD [address] [place] [address] Specialty Professional Soccer Player Cardiology 05/01/21 Juan Zapata [address] [place] [address] Specialty Professional Soccer Player Internal Medicine 05/02/21 Zee De La Vega APRN.STEAM LOCOMOTIVE FIRER/FIREMAN [address] [place] [address] Intelligence Operations Specialist Family Medicine 05/31/24 Jolly Wells TAXI DRIVER SUPERVISOR.STEAM LOCOMOTIVE FIRER/FIREMAN [address] [facility] [place] [address] Intelligence Operations Specialist Family Medicine 05/31/24 Bilingual Branch Manager Relationship Specialty Start Date End Date Alan Ward MD [address] [facility] [place] [address] PCP - General Family Medicine 08/27/12 Diaz Gonzalez MD [address] [place] [address] Specialty Professional Soccer Player Cardiology 05/01/21 Juan Zapata [address] [place] [address] Specialty Professional Soccer Player Internal Medicine 05/02/21 Zee De La Vega APRN.STEAM LOCOMOTIVE FIRER/FIREMAN [address] [place] [address] Intelligence Operations Specialist Family [facility] 05/31/24 Jolly Wells APRN.STEAM LOCOMOTIVE FIRER/FIREMAN [address] [facility] [address] [facility] 05/31/24 Bilingual Branch Manager Relationship Specialty Start Date End Date Alan Ward MD [address] [facility] [address] PCP - General Family Medicine 08/27/12 Diaz Gonzalez MD [address] [place] [address] Specialty Professional Soccer Player Cardiology 05/01/21 Juan Zapata [address] [place] [address] Specialty Professional Soccer Player Internal Medicine 05/02/21 Zee De La Vega APRN.STEAM LOCOMOTIVE FIRER/FIREMAN [address] [place] [address] [facility] 05/31/24 Jolly Wells TAXI DRIVER SUPERVISOR.STEAM LOCOMOTIVE FIRER/FIREMAN [address] [place] [address] Intelligence Operations Specialist Family [facility] 05/31/24 Bilingual Branch Manager Relationship Specialty Start Date End Date Alan Ward MD [address] [facility] [place] [address] PCP - General Family Medicine 08/27/12 Diaz Gonzalez MD [address] [place] [address] Specialty Professional Soccer Player Cardiology 05/01/21 Juan Zapata [address] [place] [phone] Specialty Professional Soccer Player Internal Medicine 05/02/21 Zee De La Vega APRN.STEAM LOCOMOTIVE FIRER/FIREMAN [address] [place] [address] [facility] 05/31/24 Jolly Wells TAXI DRIVER SUPERVISOR.STEAM LOCOMOTIVE FIRER/FIREMAN [address] [facility] [place] [address] [facility] 05/31/24 Bilingual Branch Manager Relationship Specialty Start Date End Date Alan Ward MD [address] [facility] [place] [address] PCP - General Family Medicine 08/27/12 Diaz Gonzalez MD [address] [place] [address] Specialty Professional Soccer Player Cardiology 05/01/21 Juan Zapata [address] [place] [address] Specialty Professional Soccer Player Internal Medicine 05/02/21 Zee De La Vega, TAXI DRIVER SUPERVISOR.STEAM LOCOMOTIVE FIRER/FIREMAN [address] [facility] [place] [address] [facility] 05/31/24 Jolly Wells TAXI DRIVER SUPERVISOR.STEAM LOCOMOTIVE FIRER/FIREMAN [address] [facility] [place] [address] [facility] 05/31/24 Bilingual Branch Manager Relationship Specialty Start Date End Date Alan Ward MD [address] [facility] [place] [address] PCP - General Family Medicine 08/27/12 Diaz Gonzalez MD [address] [facility] [address] [place] [address] Specialty Professional Soccer Player Cardiology 05/01/21 Juan Zapata [address] [facility] [place] [address] Specialty Professional Soccer Player Internal Medicine 05/02/21 Zee De La Vega, TAXI DRIVER SUPERVISOR.STEAM LOCOMOTIVE FIRER/FIREMAN [address] [place] [address] [facility] 05/31/24 Jolly Wells, TAXI DRIVER SUPERVISOR.STEAM LOCOMOTIVE FIRER/FIREMAN [address] [facility] [place] [address] [facility] 05/31/24 Bilingual Branch Manager Relationship Specialty Start Date End Date Alan Ward MD [address] [facility] [place] [address] PCP - General Family Medicine 08/27/12 Diaz Gonzalez MD [address] [place] [address] Specialty Professional Soccer Player Cardiology 05/01/21 Juan Zapata [address] [place] [address] Specialty Professional Soccer Player Internal Medicine 05/02/21 Zee De La Vega APRN.STEAM LOCOMOTIVE FIRER/FIREMAN [address] [facility] [place] [address] Intelligence Operations Specialist Family Medicine 05/31/24 Jolly Wells APRN.STEAM LOCOMOTIVE FIRER/FIREMAN [address] [facility] [place] [address] Intelligence Operations Specialist Family [facility] 05/31/24 Bilingual Branch Manager Relationship Specialty Start Date End Date Alan Ward MD [address] [facility] [place] [address] PCP - General Family Medicine 08/27/12 Diaz Gonzalez MD [address] [place] [address] Specialty Professional Soccer Player Cardiology 05/01/21 Juan Zapata [address] [place] [address] Specialty Professional Soccer Player Internal Medicine 05/02/21 Zee De La Vega APRN.STEAM LOCOMOTIVE FIRER/FIREMAN [address] [place] [address] [facility] Family [facility] 05/31/24 Jolly Wells APRN.STEAM LOCOMOTIVE FIRER/FIREMAN [address] [facility] [place] [address] Intelligence Operations Specialist Family [facility] 05/31/24 Bilingual Branch Manager Relationship Specialty Start Date End Date Alan Ward MD [address] [facility] [place] [address] PCP - General Family Medicine 08/27/12 Diaz Gonzalez MD [address] [place] [address] Specialty Professional Soccer Player Cardiology 05/01/21 Juan Zapata [address] [place] [address] Specialty Professional Soccer Player Internal Medicine 05/02/21 Zee De La Vega APRN.STEAM LOCOMOTIVE FIRER/FIREMAN [address] [place] [address] [facility] 05/31/24 Jolly Wells APRN.STEAM LOCOMOTIVE FIRER/FIREMAN [address] [place] [address] [facility] 05/31/24 Bilingual Branch Manager Relationship Specialty Start Date End Date Alan Ward MD [address] [place] [address] PCP - General Family Medicine 08/27/12 Diaz Gonzalez MD [address] [place] [address] Specialty Professional Soccer Player Cardiology 05/01/21 Juan Zapata [address] [place] [address] Specialty Professional Soccer Player Internal Medicine 05/02/21 Zee De La Vega, TAXI DRIVER SUPERVISOR.STEAM LOCOMOTIVE FIRER/FIREMAN [address] [facility], [place] [address] [facility] 05/31/24 Jolly Wells APRN.STEAM LOCOMOTIVE FIRER/FIREMAN [address] [facility], [place] [address] [facility] 05/31/24 Team Status: Inactive Member Role Status Dates Dr. Alan Ward MD Primary Care Provider Active Start: June 29, 2024 End: June 29, 2024 Dr. Alan Ward MD Referring Provider Active Start: June 29, 2024 End: June 29, 2024 Hoda Jerry , JUAQUIN-C Attending Provider Active Start: June 29, 2024 End: June 29, 2024 Team Status: Inactive Member Role Status Dates Dr. Alan Ward MD Primary Care Provider Active Start: October 14, 2024 End: October 14, 2024 Dr. Alan Ward MD Attending Provider Active Start: October 14, 2024 End: October 14, 2024 Dr. Alan Ward MD Referring Provider Active Start: October 14, 2024 End: October 14, 2024 Bilingual Branch Manager Relationship Specialty Start Date End Date Alan Ward MD [address] [facility], [place] [address] PCP - General Family Medicine 08/27/12 Diaz Gonzalez MD [address] [place] [address] Specialty Professional Soccer Player Cardiology 05/01/21 Juan Zapata [address] [place] [address] Specialty Professional Soccer Player Internal Medicine 05/02/21 Zee De La Vega, TAXI DRIVER SUPERVISOR.STEAM LOCOMOTIVE FIRER/FIREMAN [address] [facility] [place] [address] Intelligence Operations Specialist Family [facility] 05/31/24 Jolly Wells, TAXI DRIVER SUPERVISOR.STEAM LOCOMOTIVE FIRER/FIREMAN [address] [facility] [place] [address] Intelligence Operations Specialist Family [facility] 05/31/24 Bilingual Branch Manager Relationship Specialty Start Date End Date Alan Ward MD [address] [facility] [place] [address] PCP - General Family Medicine 08/27/12 Diaz Gonzalez MD [address] [place] [address] Specialty Professional Soccer Player Cardiology 05/01/21 Juan Zapata [address] [place] [address] Specialty Professional Soccer Player Internal Medicine 05/02/21 Zee De La Vega, TAXI DRIVER SUPERVISOR.STEAM LOCOMOTIVE FIRER/FIREMAN [address] [facility] [place] [address] [facility] Family [facility] 05/31/24 Jolly Wells, TAXI DRIVER SUPERVISOR.STEAM LOCOMOTIVE FIRER/FIREMAN [address] [facility] [place] [address] Intelligence Operations Specialist [facility] 05/31/24 Bilingual Branch Manager Relationship Specialty Start Date End Date Alan Ward MD [address] [facility] [place] [address] PCP - General Family Medicine 08/27/12 Diaz Gonzalez MD [address] [place] [address] Specialty Professional Soccer Player Cardiology 05/01/21 Juan Zapata [address] [place] [address] Specialty Professional Soccer Player Internal Medicine 05/02/21 Zee De La Vega APRN.STEAM LOCOMOTIVE FIRER/FIREMAN [address] [facility] [place] [address] [facility] Family [facility] 05/31/24 Jolly Wells TAXI DRIVER SUPERVISOR.STEAM LOCOMOTIVE FIRER/FIREMAN [address] [facility] [place] [address] [facility] 05/31/24 Bilingual Branch Manager Relationship Specialty Start Date End Date Alan Ward MD [address] [facility] [place] [address] PCP - General Family Medicine 08/27/12 Diaz Gonzalez MD [address] [place] [address] Specialty Professional Soccer Player Cardiology 05/01/21 Juan Zapata [address] [place] [address] Specialty Professional Soccer Player Internal Medicine 05/02/21 Zee De La Vega, TAXI DRIVER SUPERVISOR.STEAM LOCOMOTIVE FIRER/FIREMAN [address] [place] [address] [facility] 05/31/24 Jolly Wells TAXI DRIVER SUPERVISOR.STEAM LOCOMOTIVE FIRER/FIREMAN [address] [facility] [place] [address] [facility] 05/31/24 Bilingual Branch Manager Relationship Specialty Start Date End Date Alan Ward MD [address] [facility] [address] PCP - General Family Medicine 08/27/12 Diaz Gonzalez MD [address] [place] [address] Specialty Professional Soccer Player Cardiology 05/01/21 Juan Zapata [address] [place] [address] Specialty Professional Soccer Player Internal Medicine 05/02/21 Zee De La Vega, TAXI DRIVER SUPERVISOR.STEAM LOCOMOTIVE FIRER/FIREMAN [address] [facility] [place] [address] Intelligence Operations Specialist Family Medicine 05/31/24 Jolly Wells TAXI DRIVER SUPERVISOR.STEAM LOCOMOTIVE FIRER/FIREMAN [address] [facility] [place] [address] Intelligence Operations Specialist Family [facility] 05/31/24 Bilingual Branch Manager Relationship Specialty Start Date End Date Alan Ward MD [address] [facility] [place] [address] PCP - General Family Medicine 08/27/12 Diaz Gonzalez MD [address] [place] [address] Specialty Professional Soccer Player Cardiology 05/01/21 Juan Zapata [address] [place] [address] Specialty Professional Soccer Player Internal Medicine 05/02/21 Zee De La Vega, TAXI DRIVER SUPERVISOR.STEAM LOCOMOTIVE FIRER/FIREMAN [address] [facility] [place] [address] Intelligence Operations Specialist [facility] 05/31/24 Jolly Wells, TAXI DRIVER SUPERVISOR.STEAM LOCOMOTIVE FIRER/FIREMAN [address] [facility] [place] [address] [facility] 05/31/24 Bilingual Branch Manager Relationship Specialty Start Date End Date Alan Ward MD [address] [facility] [place] [address] PCP - General Family Medicine 08/27/12 Diaz Gonzalez MD [address] [place] [address] Specialty Professional Soccer Player Cardiology 05/01/21 Juan Zapata [address] [place] [address] Specialty Professional Soccer Player Internal Medicine 05/02/21 Zee De La Vega, TAXI DRIVER SUPERVISOR.STEAM LOCOMOTIVE FIRER/FIREMAN [address] [facility] [place] [address] [facility] 05/31/24 Jolly Wells, TAXI DRIVER SUPERVISOR.STEAM LOCOMOTIVE FIRER/FIREMAN [address] [facility] [place] [address] [facility] 05/31/24 Bilingual Branch Manager Relationship Specialty Start Date End Date Alan Ward MD [address] [facility] [place] [address] PCP - General Family Medicine 08/27/12 Diaz Gonzalez MD [address] [place] [address] Specialty Professional Soccer Player Cardiology 05/01/21 Juan Zapata [address] [place] [address] Specialty Professional Soccer Player Internal Medicine 05/02/21 Zee De La Vega APRN.STEAM LOCOMOTIVE FIRER/FIREMAN [address] [facility] [place] [address] [facility] Family [facility] 05/31/24 Jolly eWlls APRN.STEAM LOCOMOTIVE FIRER/FIREMAN [address] [facility] [place] [address] [facility] 05/31/24 Bilingual Branch Manager Relationship Specialty Start Date End Date Alan Ward MD [address] [facility] [place] [address] PCP - General Family Medicine 08/27/12 Diaz Gonzalez MD [address] [place] [address] Specialty Professional Soccer Player Cardiology 05/01/21 Juan Zapata [address] [place] [address] Specialty Professional Soccer Player Internal Medicine 05/02/21 Zee De La Vega TAXI DRIVER SUPERVISOR.STEAM LOCOMOTIVE FIRER/FIREMAN [address] [facility] [place] [address] [facility] Family [facility] 05/31/24 Jolly Wells APRN.STEAM LOCOMOTIVE FIRER/FIREMAN [address] [facility] [place] [address] [facility] 05/31/24 Team Status: Active Member Role/Relationship Status Dates Dr. Alan Ward MD Family Provider Active Dr. Alan Ward MD Primary Care Provider Active Team Status: Inactive Member Role/Relationship Status Dates Dr. Alan Ward MD Primary Care Provider Active Start: October 14, 2024 End: October 14, 2024 Dr. Alan Ward MD Attending Provider Active Start: October 14, 2024 End: October 14, 2024 Dr. Alan Ward MD Referring Provider Active Start: October 14, 2024 End: October 14, 2024 Team Status: Inactive Member Role/Relationship Status Dates Dr. Alan Ward MD Primary Care Provider Active Start: January 11, 2025 End: January 11, 2025 Dr. Alan Ward MD Referring Provider Active Start: January 11, 2025 End: January 11, 2025 Gerardo Guerrier LUBE WORKER, LUBE WORKER-C Attending Provider Active S tart: January 11, 2025 End: January 11, 2025 Bilingual Branch Manager Relationship Specialty Start Date End Date Alan Ward MD [address] [facility], [place] [address] PCP - General Family Medicine 08/27/12 Diaz Gonzalez MD [address] [place], [place] [address] Specialty Professional Soccer Player Cardiology 05/01/21 Juan Zapata [address] [facility] [place] [address] Specialty Professional Soccer Player Internal Medicine 05/02/21 Zee De La Vega, GUILLERMO.STEAM LOCOMOTIVE FIRER/FIREMAN [address] [place] [address] Intelligence Operations Specialist Family Medicine 05/31/24 Jolly Wells TAXI DRIVER SUPERVISOR.STEAM LOCOMOTIVE FIRER/FIREMAN [address] [facility] [place] [address] [facility] 05/31/24 Bilingual Branch Manager Relationship Specialty Start Date End Date Alan Ward MD [address] [facility] [address] PCP - General Family Medicine 08/27/12 Diaz Gonzalez MD [address] [place] [address] Specialty Professional Soccer Player Cardiology 05/01/21 Juan Zapata [address] [address] Specialty Professional Soccer Player Internal Medicine 05/02/21 Zee De La Vega, TAXI DRIVER SUPERVISOR.STEAM LOCOMOTIVE FIRER/FIREMAN [address] [facility] [place] [address] Intelligence Operations Specialist Family Medicine 05/31/24 Jolly Wells TAXI DRIVER SUPERVISOR.STEAM LOCOMOTIVE FIRER/FIREMAN [address] [facility] [address] Intelligence Operations Specialist Family [facility] 05/31/24 Bilingual Branch Manager Relationship Specialty Start Date End Date Alan Ward MD [address] [facility] [place] [address] PCP - General Family Medicine 08/27/12 Diaz Gonzalez MD [address] [place] [address] Specialty Professional Soccer Player Cardiology 05/01/21 Juan Zapata [address] [place] [address] Specialty Professional Soccer Player Internal Medicine 05/02/21 Zee De La Vega, TAXI DRIVER SUPERVISOR.STEAM LOCOMOTIVE FIRER/FIREMAN [address] [place] [address] Intelligence Operations Specialist Family [facility] 05/31/24 Jolly Wells, TAXI DRIVER SUPERVISOR.STEAM LOCOMOTIVE FIRER/FIREMAN [address] [place], [place] [address] [facility] Family [facility] 05/31/24 Bilingual Branch Manager Relationship Specialty Start Date End Date Alan Ward MD [address] [place] [address] PCP - General Family Medicine 08/27/12 Diaz Gonzalez MD [address] [place], [place] [address] Specialty Professional Soccer Player Cardiology 05/01/21 Juan Zapata [address] [place] [address] Specialty Professional Soccer Player Internal Medicine 05/02/21 Zee De La Vega, GUILLERMO.STEAM LOCOMOTIVE FIRER/FIREMAN [address] [place] [address] [facility] 05/31/24 Jolly Wells, TAXI DRIVER SUPERVISOR.STEAM LOCOMOTIVE FIRER/FIREMAN [address] [place], [place] [address] Intelligence Operations Specialist Family [facility] 05/31/24 (unrecognized sect ion and content) No Status Records FoundNo Status Records FoundNo Status Records Found INFORMATION SOURCE (unrecogn ized section and content) DATE CREATED AUTHOR 09/23/2021 [facility] DATE CREATED AUTHOR AUTHOR'S ORGANIZ ATION 04/26/2025 [facility] DATE CREATED AUTHOR AUTHOR'S ORGANIZ ATION 05/03/2025 [facility] Goals (unrecognized section and content) Goals may be documented in a n alternate sectionGoals may be documented in an alternate sectionGoals may be documented in an alternate sectionGoals may be documented in an alternate sectionGoals may be documented in an alternate section Reason for Visit (unrecogniz ed section and content) Reason Comments Physical Therapy Specialty Diagnoses / Procedures Referred By Khoa t Referred To Contact [facility] Diagnoses Foot pain, left Plantar fasciitis Procedures CONSULT TO PHYSICAL THERAPY PHYSICAL THERAPY EVALUATION HIGH COMPLEX 45 MINS Alan aWrd MD [address] [place] [address] Phone: tel: fax: [facility] [address] [place] [address] Referral ID Status Reason Start Date Expiration Date Visits Requested Visits Authorized [id number] Authorized Auto-Generat ed Referral 10/21/2024 06/22/2025 20 20 Reason Comments PT Progress Note Reason Comments PT Eval Specialty Diagnoses / Procedures Referred By Khoa pelayo Referred To Contact PHYSICAL THERAPY Diagnoses Chronic pain of both shoulders [M25.511, G89.29, M25.512] Shoulder impingement [M25.819] Procedures PHYSICAL THERAPY EVALUATION HIGH COMPLEX 45 MINS Chronic pain of both shoulders [M25.511, G89.29, M25.512] Shoulder impingement [M25.819] Armand Mcfadden MD [address] [place] [address] Phone: tel: fax: [facility] [address] [place] [address] Phone: tel: fax: Referral ID Status Reason Start Date Expiration Date V isits Requested Visits Authorized [id number] Closed OON/Self Pay Override 06/23/2024 06/22/2025 1 1 Reason Comments PT Discharge Specialty Diagnoses / Procedures Referred By Khoa t Referred To Contact [facility] Diagnoses Tendinitis of shoulder, unspecified laterality Procedures CONSULT TO PHYSICAL THERAPY PHYSICAL THERAPY EVALUATION HIGH COMPLEX 45 MINS Alan Ward MD [address] [place] [address] [facility] [place] [address] [place] [address] Referral ID Status Reason Start Date Expiration Date Visits Requested Visits Authorized [id number] Authorized Auto-Generat ed Referral 06/23/2023 06/22/2024 40 40 Reason Comments 6 Month Exam Reason Comments Patient Update Reason Comments Follow Up Hemorrhoid Banding Reason Comments Abdominal Pain burning bladder area Reason Onset Date Comments Refill Request 11/11/2021 Reason Comments Follow Up abd discomfort no be tter not worse Specialty Diagnoses / Procedures Referred By Contac t Referred To Contact CT IMAGING Diagnoses Abdominal discomfort in right lower quadrant Abdominal discomfort in left lower quadrant Right lower quadrant abdominal pain Procedures CT ABD/PEL W IVCON CT ABD & PELVIS W/CONTRAST Alan Ward MD [address] [place] [address] Imaging Referral ID Status Reason Start Date Expiration Date Visits Requested Visits Authorized [id number] Authorized Auto-Generat ed Referral 12/03/2021 01/17/2022 1 1 Reason Comments Results Reason Comments Orders Reason Comments Erroneous encounter-disregard Reason Comments Follow Up Reason Comments Consult abdominal pain Specialty Diagnoses / Procedures Referred By Contac t Referred To Contact General Surgery Diagnoses Abdominal discomfort Unilateral inguinal hernia without obstruction or gangrene, recurrence not specified Procedures CONSULT TO GENERAL SURGERY OFFICE/OUTPATIENT [facility] 60-74 MINUTES Alan Ward MD [address] [place] [address] Referral ID Status Reason Start Date Expiration Date V isits Requested Visits Authorized [id number] Closed PCP Requested Referral 01/14/2022 01/14/2023 1 1 Reason Comments New Patient Specialty Diagnoses / Procedures Referred By Contac t Referred To Contact Urology Diagnoses Enlarged ureter Abdominal discomfort Procedures CONSULT TO UROLOGY OFFICE/OUTPATIENT [facility] 60-74 MINUTES Alan Ward MD [address] [place] [id number] Referral ID Status Reason Start Date Expiration Date V isits Requested Visits Authorized [id number] Closed PCP Requested Referral 12/20/2021 12/20/2022 1 1 Reason Onset Date Comments Refill Request 02/03/2022 Reason Comments 6 Month Exam Reason Comments Post Op Follow Up Reason Comments prior authorization for medication Omepr azole PA Reason Comments Follow Up EGD and colonoscopy follow up Reason Comments Patient Question Reason Onset Date Comments Refill Request 04/28/2022 Reason Onset Date Comments Refill Request 05/01/2022 Reason Comments Blood Pressure Check Reason Comments Blood Pressure Check Reason Onset Date Comments Refill Request 07/30/2022 Reason Comments Physical Reason Onset Date Comments Refill Request 10/06/2022 Reason Comments Follow Up Reason Onset Date Comments Refill Request 10/27/2022 Reason Comments PT Eval Specialty Diagnoses / Procedures Referred By Contac t Referred To Contact [facility] Diagnoses Benign paroxysmal positional vertigo, unspecified laterality Procedures CONSULT TO PHYSICAL THERAPY PHYSICAL THERAPY EVALUATION HIGH COMPLEX 45 MINS Alan Ward MD [address] [place] [address] [facility] [place] [address] [place] [address] Referral ID Status Reason Start Date Expiration Date V isits Requested Visits Authorized [id number] Authorized 06/23/2022 06/22/2023 40 40 Reason Onset Date Comments Refill Request 02/02/2023 Reason Comments Covid19 Concern Cough, TREVIÑO, congestio n, bodyaches, fatigue x1 day, + rapid x last night Reason Onset Date Comments Refill Request 03/09/2023 Reason Comments Acute Visit Left groin strain Reason Onset Date Comments Refill Request 04/20/2023 Reason Onset Date Comments Refill Request 04/27/2023 Reason Comments Nasal Congestion chest congestion, co ugh, nasal drainage into throat x 3 days Reason Comments Acute Visit Reason Comments Information Reason Comments 6 Month Exam Reason Onset Date Comments Refill Request 03/21/2024 Reason Comments Medication Problem Reason Comments Sinusitis Reason Onset Date Comments Refill Request 06/11/2024 Reason Comments Follow Up Reason Comments Cough Chest congestion, si nus, fever, TREVIÑO x 2 days Reason Comments Sore Throat x 2 days, did sleep with cough drops in having tongue pain and sore throat Reason Onset Date Comments Refill Request 08/29/2024 Reason Comments Sore Throat Nasal drainage x 4 d ays Reason Comments New Pain Specialty Diagnoses / Procedures Referred By Contac t Referred To Contact [facility]oped[facility] / [facility] Diagnoses Chronic pain of both shoulders Procedures CONSULT TO ORTHOPAEDICS OFFICE/OUTPATIENT NEW HIGH MDM 60 MINUTES Alan Ward MD [address] [place] [address] Phone: tel: fax: [facility] [place] [address] [place] [address] Referral ID Status Reason Start Date Expiration Date V isits Requested Visits Authorized [id number] Closed OON/Self Pay Override 08/02/2024 06/22/2025 1 1 Reason Comments Nasal Congestion Sore Throat Reason Comments Pain (foot) Left Anxiety Reason Comments New Pain Swelling Specialty Diagnoses / Procedures Referred By Khoa pelayo Referred To Contact Podiatry / PODIATRY Diagnoses Plantar fasciitis Procedures CONSULT TO PODIATRY OFFICE/OUTPATIENT [facility] 60 MINUTES Alan Ward MD [address] [place] [address] Phone: tel: fax: Podiatry [address] [place] [address] Phone: tel: fax: Referral ID Status Reason Start Date Expiration Date V isits Requested Visits Authorized [id number] Closed PCP Requested Referral 06/23/2024 06/22/2025 1 1 Reason Comments Patient Update Reason Comments MRI authorization Reason Onset Date Comments Refill Request 01/18/2025 Reason Comments Headache Head Congestion Pressure In Ear(s) Pain, Sinus FOR RECORDS PERTAINING TO PATIENTS WHO ARE OR HAVE BEEN ENROLLED IN A CHEMICAL DEPENDENCY/SUBSTANCEABUSE PROGRAM, SOME INFORMATION MAY BE OMITTED. This clinical summary was aggregated from multiple sources. Caution should be exercised in using it in the provision of clinical care. This summary normalizes information from multiple sources, and as a consequence, information in this document may materially change the coding, format and clinical context of patient data. In addition, data may be omitted in some cases. CLINICAL DECISIONS SHOULD BE BASED ON THE PRIMARY CLINICAL RECORDS. [employer] provides no warranty or guarantee of the accuracy or completeness of information in this document.
== END | disposition home or self-care (01) ==
LOC: CVS 13:52
PROVIDERS: PCP Family Medicine; Referring Provider Nurse Practitioner Family; Visit Provider Nurse Practitioner Family
DX: I48.0 Paroxysmal atrial fibrillation (principal); I10 Essential (primary) hypertension; E78.00 Pure hypercholesterolemia, unspecified
CPT/HCPCS: 93306